=== PATIENT | male | born 1960 | race Caucasian/White ===

== ENCOUNTER 2021-02-01 00:55 | Emergency (ER) | payer OTHER, SELFPAY ==
[2021-02-01 00:56] VITALS: BP 144/90; PULSE 70; RESP 15; TEMP 37; O2SAT 99; BMI 27.5
[2021-02-01 00:59] VITALS: BP 144/90; PULSE 70; RESP 15; TEMP 37; O2SAT 99
--- NOTE | 2021-02-01 01:21 | ED.VIS.GI ---
HPI HPI - GI History of Present Illness Chief Complaint: Abd Pain Informant: patient and spouse/S.O. Abdominal Pain/Flank Pain Onset: Today and Hours Context: Sudden Onset Timing: Intermittent Quality: Cramping Location: Diffuse Current Severity: Gone Maximum Severity: Mild Nausea/Vomiting/Emesis GI Symptom: Positive for Nausea; Negative for Vomiting Diarrhea/Melena/Hematochezia GI Symptom: Positive for Diarrhea; Negative for Melena and Hematochezia Onset: Today Stool Quality: Positive for Watery Severity: Mild Associated Symptoms Associated Symptoms: Negative for Dysuria, Frequency and Hematuria Narrative Narrative: 60-year-old male states he has had GI symptoms for years. Has had work-ups in upper and lower endoscopy without a specific diagnosis. Had a recent Covid test done by the [facility] is awaiting the results. Currently is on Z-Chidi for sinus drainage. To the night around 1230 get abdominal cramping feelings can have diarrhea. 1 the bathroom explosive diarrhea. [address] diaphoretic and nauseated but did not pass out. States he feels much better now and completely pain-free is abdominal pain is completely resolved. Prior similar symptoms: Yes Recent Illness/Hospitalization: No PFSH PFSH Home Medications doxycycline hyclate 100 mg PO BID #20 capsule 11/29/15 [Rx Last Taken Unknown] finasteride 5 mg PO DAILY 02/01/21 [History Last Taken Unknown] fluoxetine 40 mg PO DAILY 02/01/21 [History Last Taken Unknown] Allergy/AdvReac Type Severity Reaction Status Date / Time No Known Allergies Allergy Verified 02/01/21 01:02 Social History Smoking Status: Former smoker ROS ROS ED ROS Narrative Nausea, abdominal pain and diarrhea. Review of Systems ROS Unobtainable: Denies due to encephalopathy Constitutional Constitutional ED: Denies fever(s) ENT ENT ED: Denies ear pain Cardiovascular Cardiovascular: Denies chest pain Respiratory/Chest Respiratory/Chest: Denies dyspnea Gastrointestinal Gastrointestinal: Reports abdominal pain, diarrhea and nausea; Denies constipation, melena or vomiting Genitourinary Genitourinary ED: Denies dysuria Musculoskeletal Musculoskeletal: Denies myalgias Integumentary Denies rash Neurologic Neurologic: Denies headache(s) Psychiatric Psychiatric: Denies depression Endocrine Endocrinology: Denies polyuria Hematologic/Lymphatic Hematologic/Lymphatic: Denies easy bruising Allergic/Immunologic Allergic/Immunologic ED: Denies urticaria EXAM Physical Exam Narrative Exam Narrative: 60-year-old male no acute distress vital signs stable afebrile. H EENT exam unremarkable. Neck nontender. Lungs clear to auscultation bilaterally. Heart regular rhythm no murmur. Abdomen soft nontender. Normal bowel sounds no peritoneal signs. Nondistended. Moving all 4 extremities. Neurovascularly intact. Normal motor strength. No edema. Back nontender. Neurologically is awake and alert. Const Vital Signs: 02/01/21 00:56 02/01/21 00:59 Temperature 98.6 F 98.6 F Temperature Source Oral Oral Pulse Rate 70 70 Respiratory Rate 15 15 Blood Pressure 144/90 H 144/90 H Blood Pressure Mean 108 108 Pulse Ox 99 99 Oxygen Delivery Method Room Air Room Air Positive well nourished and well developed; Negative for obese, cachectic, contractures or unkempt General Appearance ED: well developed and NAD; Negative for unkempt, cachectic, contractures or pallor Nutritional Appearance: Negative for cachectic or obese HEENT Reports moist mucous membranes normocephalic and atraumatic Eyes PERRL and EOMs intact bilaterally Neck no lymphadenopathy, supple and no JVD General: Negative for tenderness Resp normal respiratory effort and clear to auscultation bilaterally Auscultation: Negative for rales, rhonchi or wheezes Cardio regular rate, regular rhythm, S1 normal heart sound, S2 normal heart sound and no murmurs GI non-tender, non-distended and no masses Auscultation: normoactive bowel sounds Palpation: soft; Negative for tender, guarding or rigid Back/Spine no CVA tenderness General Back: Negative for CVA tenderness Cervical Spine: Negative for cervical spine tenderness Thoracic Spine / Upper Back: Negative for thoracic spinal tenderness Extremity full ROM General Extremety ED: Negative for edema or tenderness General Extremity: Negative for edema Neuro moves all extremities Sensorium / Orientation: alert, oriented to person, oriented to place and oriented to time; Negative for orientation impaired, confused, lethargic or stuporous Motor Exam: strength 5/5 throughout Psych Appearance: Negative for unkempt Skin no wounds General Skin Exam: Negative for jaundice or pallor Lesions: no lesions Rashes: no rashes MDM MDM MDM Narrative Medical decision making narrative: 60-year-old male that had abdominal cramping and diarrhea tonight. His abdomen is completely benign at this time. He is completely pain-free. He will be observed and reevaluated. He has had extensive work-ups done in the past through the [facility] without any specific diagnosis. Repeat exam patient is doing well at 2:15 AM. He is symptom-free. His repeat abdominal exam is nontender. When the nurses wanted to discharge him after I reevaluated him he said he had some nausea so was given p.o. Zofran he will be watched and reassessed prior to discharge. Discharge Plan Triage Chief Complaint: Abd Pain ED Provider: Srinath Briones Dx/Rx/DC Orders Clinical Impression: Abdominal pain, Diarrhea Instructions: Abdominal Pain, ED Diarrhea, Unknown Cause Prescriptions: No Action doxycycline hyclate 100 MG capsule 100 mg PO BID Qty: 20 RF: 0 fluoxetine 40 mg capsule 40 mg PO DAILY RF: 0 finasteride 5 mg tablet 5 mg PO DAILY RF: 0 Primary Care Provider: Jules Haynes Referrals: Jules Haynes DO [Primary Care Provider] - 3-5 Days if not improving Shaq Cordero DO [STAFF PHYSICIAN] - 1 Week Activity Restrictions/Additional Instructions: Plenty of fluids and rest. Follow-up with your primary care physician and/or local coordinator hotels Dr. Cordero. Return emergency department if feeling a lot worse. Disposition Disposition: Home, Self Care
[2021-02-01] MEDS: Ondansetron 8 MG Tablet 4 MG PO (02:25)
[2021-02-01] MEDS: Ondansetron 8 MG Tablet PO (03:00)
== END 2021-02-01 03:00 | disposition home or self-care (01) ==
PROVIDERS: Emergency Provider Emergency Medicine; PCP Student in an Organized Health Care Education/Training Program
DX: R10.9 Unspecified abdominal pain (principal); R19.7 Diarrhea, unspecified; Z79.899 Other long term (current) drug therapy; Z87.891 Personal history of nicotine dependence
CPT/HCPCS: 99284

== ENCOUNTER 2021-09-25 19:53 | Inpatient (IN) | payer OTHER, SELFPAY ==
[2021-09-25 19:54] VITALS: BP 129/87; PULSE 84; RESP 15; TEMP 36.7; O2SAT 94; BMI 27.1
--- NOTE | 2021-09-25 20:55 | EDS_ITS ---
HPI History of Present Illness Chief Complaint: Lower Extremity Injury Informant: patient Narrative Narrative: Patient is a 61-year-old male with no significant past medical history presenting with injury, redness and swelling to his left foot. Patient states he was wearing cheap black sneakers yesterday when he stepped on a nail. The nail went through the shoe and into the ball of his foot. Later in the day throughout the night and today he has had increased redness, pain and swelling of the foot. He now has redness streaking up his leg. Came in for further evaluation. Is not entirely sure when his last tetanus was but thinks its been more than 5 years. 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 Denies any history of of diabetes mellitus. no other complaints at this time. PFSH PFSH Allergy/AdvReac Type Severity Reaction Status Date / Time No Known Allergies Allergy Verified 09/25/21 22:32 Family History (Updated 09/25/21 @ 22:[address] Sherron Crockett MD) Father Heart disease Hypertension Mother COPD (chronic obstructive pulmonary disease) Surgical History (Updated 09/25/21 @ 22:[address] Sherron Crockett MD) H/O excision of mass Social History (Updated 09/25/21 @ 22:[address] Sherron Crockett MD) household members: spouse Smoking Status: Former smoker alcohol intake: current details: drinks 5-6 shots of whisky a day substance use type: marijuana ROS ROS ED Constitutional Constitutional ED: Denies chills or fever(s) Eyes Eyes: Denies change in vision ENT ENT ED: Denies rhinorrhea or sore throat Cardiovascular Cardiovascular: Denies chest pain Respiratory/Chest Respiratory/Chest: Denies cough or dyspnea Gastrointestinal Gastrointestinal: Denies abdominal pain, nausea or vomiting Genitourinary Genitourinary ED: Denies dysuria or hematuria Musculoskeletal Musculoskeletal: Reports myalgias and other Details: Left foot pain ; Denies arthralgias Integumentary Reports rash Neurologic Neurologic: Denies headache(s), paresthesias or weakness Psychiatric Psychiatric: Denies anxiety Hematologic/Lymphatic Hematologic/Lymphatic: Denies easy bleeding or easy bruising EXAM Physical Exam Const Vital Signs: 09/25/21 19:54 Temperature 98.1 F Temperature Source Temporal Pulse Rate 84 Respiratory Rate 15 Blood Pressure 129/87 H Blood Pressure Mean 101 Pulse Ox 94 Oxygen Delivery Method Room Air Positive well nourished and well developed General Appearance ED: well developed HEENT Reports moist mucous membranes normocephalic and atraumatic Neck full ROM and supple Chest Wall inspection of chest normal and palpation of chest normal Resp normal respiratory effort and no retractions Cardio regular rate, regular rhythm and no murmurs Cardio Narrative: 2+ DP pulses GI non-tender and non-distended Back/Spine no CVA tenderness Extremity full ROM Extremity Narrative: Edema and erythema of the left foot diffusely. No crepitus appreciated. No pinpoint bony tenderness. General Extremety ED: Yes weight-bearing difficulty General Extremity: weight-bearing difficulty Neuro oriented x3, moves all extremities and no sensory deficits noted Skin Skin Narrative: Puncture wound at the base of the left foot. There is erythema and warmth of the foot with associated lymphangitic streaking approximately 6 cm up the woods. MDM MDM MDM Narrative Medical decision making narrative: Patient sustained a puncture wound through his shoe yesterday with a nail. He is now having increased swelling, redness and a lymphangitic streaking. Due to the rapid progression and the mechanism of injury I am concerned for Pseudomonas or MRSA infection. Started on IV antibiotics. Will obtain an x-ray to look for foreign body. Will discuss admission with the hospitalist. X-ray interpreted by myself as well as radiology shows no acute process. Lab Data Labs: Laboratory Results - last 24 hr 09/25/21 09/25/21 09/25/21 21:00 21:00 21:00 WBC 6.7 RBC 4.18 L Hgb 13.6 Hct 39.5 L MCV 94.5 H MCH 32.5 H MCHC 34.4 RDW Std Deviation 40.6 RDW Coeff of [place] 11.7 Plt Count 153 MPV 10.1 Immature Gran % (Auto) 0.300 Neut % (Auto) 55.1 Lymph % (Auto) 29.7 [place] % (Auto) 10.6 H Eos % (Auto) 3.9 Baso % (Auto) 0.4 Absolute Neuts (auto) 3.7 Absolute Lymphs (auto) 1.99 Nucleated RBC % 0 ESR 8 Sodium 139 Potassium 3.8 Chloride 108 H Carbon Dioxide 25.0 Anion Gap 6 BUN 23 H Creatinine 1.26 Estim Creat Clear Calc 63.91 Est GFR (MDRD) Af Amer 74 Est GFR (MDRD) Non-Af 61 BUN/Creatinine Ratio 18.3 Glucose 112 H Calcium 9.1 Total Creatine Kinase 263 C-React Prot Ext Range 25.60 H Radiography Diagnostic Testing: Clinical Impression(s) from Imaging Studies Foot X-Ray 09/25/21 21:05 IMPRESSION: There are no acute findings of the foot. Electronically Signed: Stephen Jesus MD at 21:19 EDT Reading Location ID and State: [facility] / [place] , Service support , Discharge Plan Triage Chief Complaint: Lower Extremity Injury ED Provider: Carolina Denis Dx/Rx/DC Orders Clinical Impression: Cellulitis and abscess of left leg, Puncture wound of foot, left, complicated Primary Care Provider: Jules Haynes Disposition Disposition: Acute Care Hospital [facility]
--- NOTE | 2021-09-25 21:05 | RAD_ITS ---
STUDY: XR Foot Min 3 Views CLINICAL: Male, 61 years old. puncture wood to foot TECHNIQUE: XR Foot Min 3 ViewsLEFT COMPARISON: None. FINDINGS: There is a plantar calcaneal spur. Normal visualized subtalar, talonavicular, calcaneocuboid, tarsal and tarsometatarsal articulations. Normal metatarsi. There is degenerative arthrosis of the metatarsophalangeal joint of the hallux with a hallux valgus deformity. Normal tibial and fibular sesamoid bones. Normal interphalangeal joint of the great toe. Normal phalanges of the great toe. Normal second through fifth metatarsophalangeal joints. Normal interphalangeal joints and phalanges of the lesser toes. The soft tissue structures are unremarkable. There are no radiodense foreign bodies noted. RAD/Foot min 3 Views IMPRESSION: There are no acute findings of the foot. Electronically Signed: Stephen Jesus MD at 21:19 EDT ,
[2021-09-25 21:12] LABS: Absolute Lymphocyte Count 1.99 X10^3/uL (0.83-4.51); Absolute Neutrophil Count 3.7 X10^3/uL (2.0-7.7); Basophil# 0.03 X10^3/uL; Basophil% 0.4 % (0-1); Eosinophil# 0.26 X10^3/uL; Eosinophils% 3.9 % (0-5); Hematocrit 39.5 % (40-54); Hemoglobin 13.6 g/dL (13.0-16.5); Lymphocyte # 1.99 X10^3/ul (0.83-4.51); Lymphocyte % 29.7 % (19-41); Mean Corp Hgb Conc 34.4 g/dL (32-36); Mean Corpuscular Hgb 32.5 pg (27.0-32.0); Mean Corpuscular Volume 94.5 fL (80-94); Mean Platelet Vol. 10.1 fl (6.2-12.0); Monocyte# 0.71 X10^3/uL; Monocyte% 10.6 % (0-10); NRBC Flagged by Analyzer 0 % (0-5); Neutrophil % 55.1 % (47-70); Platelet Count 153 K/mm3 (150-450); RBC Distribution Width CV 11.7 % (11.6-14.6); RBC Distribution Width SD 40.6 fl (35.1-43.9); Red Blood Count 4.18 M/mm3 (4.6-6.2); White Blood Count 6.7 K/mm3 (4.4-11.0)
[2021-09-25] MEDS: Diphth,Pertuss(Acell),Tet Vac 0.5 ML Vial IM (21:19)
[2021-09-25 21:20] LABS: Erythrocyte Sedimentation Rate 8 mm/hr (0-20)
[2021-09-25 21:21] LABS: Anion Gap 6 (5-15); BUN 23 mg/dL (7-18); BUN/Creat Ratio 18.3 RATIO (10-20); Calcium,Total 9.1 mg/dL (8.5-10.1); Chloride 108 mmol/L (98-107); Creatinine, Serum 1.26 mg/dL (0.70-1.30); EST Glomerular Filtration Rate 61 mL/min (>60); Est Glom Filt Rate - Afr Amer 74 mL/min (>60); Estimated Creatinine Clearance 63.91 ml/min; Glucose 112 mg/dL (74-106); Potassium 3.8 mmol/L (3.5-5.1); Sodium Level 139 mmol/L (136-145)
[2021-09-25 21:31] LABS: CPK Total, Creatine Kinase 263 U/L (39-308)
--- NOTE | 2021-09-25 21:41 | PCM.HP.STD ---
HPI - General General Date of Admission: 09/25/21 Date of Service: 09/25/21 Chief Complaint: Left leg swelling and redness - 1 day HPI Narrative KACEY BENTLEY, is a 61 M who presents with the above. Patient with no significant PMHx who comes in after having stepped on a nail yesterday. He felt associated pain and was okay for the rest of the day. Today he notes his swelling of his left foot as well as erythema on the left foot which appears to be spreading up his legs with streaks. He denies any fever or chills or nausea or vomiting. At the time of being seen, his pain is fairly controlled. Vitals in ED showed blood pressure 129/87, heart rate 84, SPO2 94% on room air, temperature 98.1 F. WBC count is 6.7, hemoglobin 13.6, platelet count 153, sodium 139, potassium 3.8, chloride 108, bicarbonate 25, BUN 23, creatinine 1.26, glucose 112, CRP is 25.6. X-ray of the foot shows no acute findings. He received tetanus shot in the ED. He also received IV vancomycin and Zosyn. PFSH Medical History no medical history no medical history Allergy/AdvReac Type Severity Reaction Status Date / Time No Known Allergies Allergy Verified 09/25/21 19:57 Family History (Updated 09/25/21 @ 22:[address] Sherron Crockett MD) Father Heart disease Hypertension Mother COPD (chronic obstructive pulmonary disease) Surgical History (Updated 09/25/21 @ 22:[address] Sherron Crockett MD) H/O excision of mass Social History (Updated 09/25/21 @ 22:[address] Sherron Crockett MD) household members: spouse Smoking Status: Former smoker alcohol intake: current details: drinks 5-6 shots of whisky a day substance use type: marijuana ROS ROS Narrative Constitutional: Denies: Anorexia, Chills, Fever, Night Sweats, Weight Change Eyes: Denies: Blurred vision, Cataracts, Conjunctivae Inflammation, Pain, Redness, Vision Change HEENT: Denies: Difficulty Hearing, Difficulty Swallowing, Head Aches, Hearing Changes, Sinus Congestion, Sinus Drainage Cardiovascular: Denies: Chest Pain, Orthopnea, Palpitations Respiratory: Denies: Cough, Shortness of breath at rest, Sputum production Gastrointestinal: Denies: Abdominal Pain, Nausea, Vomiting Genitourinary: Denies: Dysuria Musculoskeletal: See HPI Skin: Denies: Rash, Wounds Neurological: Denies: Numbness, Tingling, Focal weakness Vital Signs Vital Signs Vital Signs: 09/25/21 19:54 Temperature 98.1 F Temperature Source Temporal Pulse Rate 84 Respiratory Rate 15 Blood Pressure 129/87 H Blood Pressure Mean 101 Pulse Ox 94 Oxygen Delivery Method Room Air Weight Weight: 88.451 kg Body Mass Index (BMI) 27.1 Physical Exam Narrative Physical exam: General: Alert, Oriented x3, Cooperative, No apparent distress HEENT: Atraumatic Oral: Moist Mucosa Neck: Supple Lungs: Clear to auscultation Cardiovascular: HS I+II, regular, no murmurs Abdomen: Bowel Sounds Present, Soft, Non Tender Extremities: Left foot is swollen, erythema with differential warmth over the dorsal medial aspect of the foot, streaking up to the lower one third of the leg, plantar ulcer/wound at the base of the first toe, no discharge or erythema, tender to touch Skin: See and extremities Neurological: Grossly intact Psych/Mental Status: Appropriate Results Lab / Micro Data Result Diagrams: 09/25/21 21:00 09/25/21 21:00 Labs: Laboratory Results - last 24 hr 09/25/21 21:00: WBC 6.7, RBC 4.18 L, Hgb 13.6, Hct 39.5 L, MCV 94.5 H, MCH 32.5 H, MCHC 34.4, RDW Std Deviation 40.6, RDW Coeff of [place] 11.7, Plt Count 153, MPV 10.1, Immature Gran % (Auto) 0.300, Neut % (Auto) 55.1, Lymph % (Auto) 29.7, [place] % (Auto) 10.6 H, Eos % (Auto) 3.9, Baso % (Auto) 0.4, Absolute Neuts (auto) 3.7, Absolute Lymphs (auto) 1.99, Nucleated RBC % 0, ESR 8 09/25/21 21:00: Sodium 139, Potassium 3.8, Chloride 108 H, Carbon Dioxide 25.0, Anion Gap 6, BUN 23 H, Creatinine 1.26, Estim Creat Clear Calc 63.91, Est GFR (MDRD) Af Amer 74, Est GFR (MDRD) Non-Af 61, BUN/Creatinine Ratio 18.3, Glucose 112 H, Calcium 9.1, C-React Prot Ext Range 25.60 H 09/25/21 21:00: Total Creatine Kinase 263 Radiology Impression Foot X-Ray 09/25/21 21:05 IMPRESSION: There are no acute findings of the foot. Electronically Signed: Stephen Jesus MD at 21:19 EDT , Assessment & Plan Assessment/Plan (1) Cellulitis and abscess of left leg: PLAN: Plan 1. Acute left leg cellulitis secondary to trauma/stepped on the nail Patient received tetanus booster Started on IV vancomycin and Zosyn Will continue on IV cefazolin, elevate leg 2. Chronic alcohol abuse, patient drinks 5-6 shots of whiskey daily, monitor for alcohol withdrawal 3. DVT prophylaxis?Lovenox subcu Charges/Coding Visit Charges Inpatient E&M: 60790 Init Hosp L2
[2021-09-25 22:28] VITALS: BMI 27.5
[2021-09-25 22:30] VITALS: BP 136/76; PULSE 72; RESP 18; TEMP 36.5; O2SAT 92
[2021-09-25] MEDS: Cefazolin 1 GM/50 ML BAG IV (23:29)
[2021-09-25] MEDS: 0.9% Normal Saline 1,000 ML 75 ML IV (23:29)
[2021-09-26 04:45] VITALS: BP 142/68; PULSE 61; RESP 18; TEMP 36.7; O2SAT 96
[2021-09-26] MEDS: Cefazolin 1 GM/50 ML BAG IV ×3 (05:03→21:01)
[2021-09-26 06:15] LABS: Absolute Lymphocyte Count 1.78 X10^3/uL (0.83-4.51); Absolute Neutrophil Count 3.5 X10^3/uL (2.0-7.7); Basophil# 0.03 X10^3/uL; Basophil% 0.5 % (0-1); Eosinophils% 4.7 % (0-5); Hematocrit 38.9 % (40-54); Hemoglobin 13.1 g/dL (13.0-16.5); Lymphocyte # 1.78 X10^3/ul (0.83-4.51); Lymphocyte % 28.1 % (19-41); Mean Corp Hgb Conc 33.7 g/dL (32-36); Mean Corpuscular Hgb 32.1 pg (27.0-32.0); Mean Corpuscular Volume 95.3 fL (80-94); Mean Platelet Vol. 10.5 fl (6.2-12.0); Monocyte# 0.75 X10^3/uL; Monocyte% 11.8 % (0-10); NRBC Flagged by Analyzer 0 % (0-5); Neutrophil # 3.47 X10^3/uL (2.7-7.7); Neutrophil % 54.7 % (47-70); Platelet Count 146 K/mm3 (150-450); RBC Distribution Width CV 11.8 % (11.6-14.6); RBC Distribution Width SD 40.7 fl (35.1-43.9); Red Blood Count 4.08 M/mm3 (4.6-6.2); White Blood Count 6.3 K/mm3 (4.4-11.0)
[2021-09-26 06:51] LABS: ALB/GLOB Ratio 1.2 RATIO (0.9-2.4); AST(SGOT) 21 U/L (15-37); Alanine Aminotransfer ALT/SGPT 12 U/L (16-61); Albumin, Serum 3.4 g/dL (3.2-5.0); Alkaline Phosphatase 48 U/L (45-117); Anion Gap 4 (5-15); BUN 19 mg/dL (7-18); BUN/Creat Ratio 18.6 RATIO (10-20); Calcium,Total 8.5 mg/dL (8.5-10.1); Chloride 108 mmol/L (98-107); Creatinine, Serum 1.02 mg/dL (0.70-1.30); EST Glomerular Filtration Rate 78 mL/min (>60); Est Glom Filt Rate - Afr Amer 95 mL/min (>60); Estimated Creatinine Clearance 78.95 ml/min; Globulin 2.9 g/dL (2.2-4.2); Glucose 108 mg/dL (74-106); Protein, Total 6.3 g/dL (6.4-8.2); Sodium Level 139 mmol/L (136-145)
--- NOTE | 2021-09-26 07:30 | PCM.PN.HOSP ---
Subjective Subjective Patient is a 61-year-old gentleman who presented with erythema and pain involving the left lower extremity. He had apparently stepped on a nail a day prior to his admission. An assessment of cellulitis involving the left lower extremity made admitted to regular nursing floor for further management Objective Data Objective Data Vital Signs: Vital Signs Temp Pulse Resp BP Pulse Ox O2 Del Method 98.0 F 61 18 142/68 H 96 Room Air 09/26/21 04:45 09/26/21 04:45 09/26/21 04:45 09/26/21 04:45 09/26/21 04:45 09/26/21 04:45 Oxygen Delivery Method Room Air Weight: 89.6 kg Body Mass Index (BMI) 27.5 Intake & Output: Intake and Output for Last 24 Hours 09/24/21 09/25/21 09/26/21 23:59 23:59 23:59 Intake Total 276.25 / 276.25 475 / 475 Balance 276.25 / 276.25 475 / 475 Lab / Micro Data Result Diagrams: 09/26/21 05:10 09/26/21 05:10 Labs: Laboratory Results - last 24 hr 09/25/21 21:00: WBC 6.7, RBC 4.18 L, Hgb 13.6, Hct 39.5 L, MCV 94.5 H, MCH 32.5 H, MCHC 34.4, RDW Std Deviation 40.6, RDW Coeff of [place] 11.7, Plt Count 153, MPV 10.1, Immature Gran % (Auto) 0.300, Neut % (Auto) 55.1, Lymph % (Auto) 29.7, [place] % (Auto) 10.6 H, Eos % (Auto) 3.9, Baso % (Auto) 0.4, Absolute Neuts (auto) 3.7, Absolute Lymphs (auto) 1.99, Nucleated RBC % 0, ESR 8 09/25/21 21:00: Sodium 139, Potassium 3.8, Chloride 108 H, Carbon Dioxide 25.0, Anion Gap 6, BUN 23 H, Creatinine 1.26, Estim Creat Clear Calc 63.91, Est GFR (MDRD) Af Amer 74, Est GFR (MDRD) Non-Af 61, BUN/Creatinine Ratio 18.3, Glucose 112 H, Calcium 9.1, C-React Prot Ext Range 25.60 H 09/25/21 21:00: Total Creatine Kinase 263 09/26/21 05:10: WBC 6.3, RBC 4.08 L, Hgb 13.1, Hct 38.9 L, MCV 95.3 H, MCH 32.1 H, MCHC 33.7, RDW Std Deviation 40.7, RDW Coeff of [place] 11.8, Plt Count 146 L, MPV 10.5, Immature Gran % (Auto) 0.200, Neut % (Auto) 54.7, Lymph % (Auto) 28.1, [place] % (Auto) 11.8 H, Eos % (Auto) 4.7, Baso % (Auto) 0.5, Absolute Neuts (auto) 3.5, Absolute Lymphs (auto) 1.78, Nucleated RBC % 0 09/26/21 05:10: Sodium 139, Potassium 4.0, Chloride 108 H, Carbon Dioxide 27.0, Anion Gap 4 L, BUN 19 H, Creatinine 1.02, Estim Creat Clear Calc 78.95, Est GFR (MDRD) Af Amer 95, Est GFR (MDRD) Non-Af 78, BUN/Creatinine Ratio 18.6, Glucose 108 H, Calcium 8.5, Total Bilirubin 0.50, AST 21, ALT 12 L, Alkaline Phosphatase 48, Total Protein 6.3 L, Albumin 3.4, Globulin 2.9, Albumin/Globulin Ratio 1.2 Radiography Diagnostic Testing: Radiology Impression Foot X-Ray 09/25/21 21:05 IMPRESSION: There are no acute findings of the foot. Electronically Signed: Stephen Jesus MD at 21:19 EDT Reading Location ID and State: [facility] / [place] , Service support , Physical Exam Narrative GENERAL: cooperative HEENT: Atraumatic; EYES; Anicteric, Normal Conjunctiva NECK; supple, normal thyroid, RESPIRATORY: Diminished to auscultation CARDIOVASCULAR: Regular S1 S2, GI: soft, normoactive bowel sounds, : No Renal angle tenderness; EXTREMITIES: No edema, no clubbing, MUSCULOSKELETAL: no muscle wasting NEURO: Awake; no lateralizing signs. SKIN: Erythema involving the left foot with a puncture wound on the plantar surface of the big toe PSYCH; Flat affect Assessment & Plan Assessment/Plan (1) Cellulitis and abscess of left leg: PLAN: Plan Patient is a 61-year-old gentleman who presented with erythema and pain involving the left lower extremity. He had apparently stepped on a nail a day prior to his admission. An assessment of cellulitis involving the left lower extremity made admitted to regular nursing floor for further management 1. Acute left lower extremity cellulitis ? Following traumatic nail injury. Patient did receive tetanus booster in the ED started on vancomycin and Zosyn admitted to regular nursing floor for further management 2. Chronic alcohol use ? Patient being monitored for possible alcohol withdrawal 3. DVT prophylaxis ? Lovenox Charges/Coding Visit Charges Inpatient E&M: 71888 Subs Hosp L2
[2021-09-26 09:26] VITALS: BP 140/74; PULSE 59; RESP 18; TEMP 36.5; O2SAT 97
[2021-09-26] MEDS: Enoxaparin 40 MG/0.4 ML Syringe SC (10:40)
[2021-09-26 16:15] VITALS: BP 140/80; PULSE 65; RESP 18; TEMP 36.5; O2SAT 98
--- NOTE | 2021-09-26 16:34 | NURSING ---
Pt was thought to be in the shower. 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 Pt located returning to floor on elevator. Pt educated on that he is not allowed to leave the floor. Pt is understanding. Offered pt nicotine patch and declined. Pt vital signs are stable and no changes to physical assessment. Dr. Angel and Raul Dobson, wire charger both notified by this RN.
[2021-09-26 21:02] VITALS: BP 140/76; PULSE 67; RESP 16; TEMP 36.7; O2SAT 97
[2021-09-26] MEDS: 0.9% Saline Lock 10 ML Syringe IV (21:09)
[2021-09-27 03:00] VITALS: BP 140/76; PULSE 63; RESP 18; TEMP 36.9; O2SAT 100
[2021-09-27 04:24] LABS: Absolute Lymphocyte Count 1.82 X10^3/uL (0.83-4.51); Absolute Neutrophil Count 3.2 X10^3/uL (2.0-7.7); Basophil# 0.02 X10^3/uL; Basophil% 0.3 % (0-1); Eosinophil# 0.32 X10^3/uL; Eosinophils% 5.3 % (0-5); Hematocrit 39.8 % (40-54); Hemoglobin 13.6 g/dL (13.0-16.5); Lymphocyte # 1.82 X10^3/ul (0.83-4.51); Lymphocyte % 30.2 % (19-41); Mean Corp Hgb Conc 34.2 g/dL (32-36); Mean Corpuscular Hgb 32.5 pg (27.0-32.0); Monocyte# 0.65 X10^3/uL; Monocyte% 10.8 % (0-10); NRBC Flagged by Analyzer 0 % (0-5); Neutrophil # 3.21 X10^3/uL (2.7-7.7); Neutrophil % 53.2 % (47-70); Platelet Count 138 K/mm3 (150-450); RBC Distribution Width CV 11.8 % (11.6-14.6); RBC Distribution Width SD 40.8 fl (35.1-43.9); Red Blood Count 4.19 M/mm3 (4.6-6.2)
[2021-09-27] MEDS: Cefazolin 1 GM/50 ML BAG IV (05:07)
[2021-09-27] MEDS: 0.9% Saline Lock 10 ML Syringe IV (05:08)
[2021-09-27 05:10] LABS: Anion Gap 4 (5-15); BUN 18 mg/dL (7-18); BUN/Creat Ratio 19.3 RATIO (10-20); Calcium,Total 8.5 mg/dL (8.5-10.1); Chloride 105 mmol/L (98-107); Creatinine, Serum 0.93 mg/dL (0.70-1.30); EST Glomerular Filtration Rate 87 mL/min (>60); Est Glom Filt Rate - Afr Amer 105 mL/min (>60); Estimated Creatinine Clearance 86.59 ml/min; Glucose 106 mg/dL (74-106); Sodium Level 138 mmol/L (136-145)
--- NOTE | 2021-09-27 07:38 | DS.PCM_ITS ---
Providers Date of Admission: 09/25/21 Date of Discharge: 09/27/21 Primary Care Physician: Dr. Jules Haynes DO Reason For Visit: LEFT LEG CELLULITUS Diagnosis Discharge Diagnosis (1) Cellulitis and abscess of left leg: Status: Acute Code(s): L03.116 - Cellulitis of left lower limb; L02.416 - Cutaneous abscess of left lower limb Medications at Discharge Home Medications cefdinir 300 mg capsule 300 mg PO Q12H #10 caps 09/27/21 Hospital Course Summary of Care Provided Minutes Spent on Discharge: 35 Hospital Course: Patient is a 61-year-old gentleman who presented with erythema and pain involving the left lower extremity. He had apparently stepped on a nail a day prior to his admission. An assessment of cellulitis involving the left lower extremity made admitted to regular nursing floor for further management 1. Acute left lower extremity cellulitis ? Following traumatic nail injury. Patient did receive tetanus booster in the ED started on vancomycin and Zosyn admitted to regular nursing floor for further management ? 09/27/2021 patient responded to treatment discharged home on cefdinir 300 mg p.o. twice daily for 5 days 2. Chronic alcohol use ? Patient being monitored for possible alcohol withdrawal 3. DVT prophylaxis ? Lovenox Physical Exam Narrative GENERAL: cooperative HEENT: Atraumatic; EYES; Anicteric, Normal Conjunctiva NECK; supple, normal thyroid, RESPIRATORY: Diminished to auscultation CARDIOVASCULAR: Regular S1 S2, GI: soft, normoactive bowel sounds, : No Renal angle tenderness; EXTREMITIES: No edema, no clubbing, MUSCULOSKELETAL: no muscle wasting NEURO: Awake; no lateralizing signs. SKIN: Erythema involving the left foot resolved PSYCH; Flat affect Weight / BMI Weight Weight: 89.6 kg Body Mass Index (BMI) 27.5 ABG / Lab / Microbiology Data Result Diagrams: 09/27/21 04:15 09/27/21 04:15 Laboratory: Laboratory Results - last 24 hr 09/27/21 04:15: WBC 6.0, RBC 4.19 L, Hgb 13.6, Hct 39.8 L, MCV 95.0 H, MCH 32.5 H, MCHC 34.2, RDW Std Deviation 40.8, RDW Coeff of [place] 11.8, Plt Count 138 L, MPV 10.0, Immature Gran % (Auto) 0.200, Neut % (Auto) 53.2, Lymph % (Auto) 30.2, [place] % (Auto) 10.8 H, Eos % (Auto) 5.3 H, Baso % (Auto) 0.3, Absolute Neuts (auto) 3.2, Absolute Lymphs (auto) 1.82, Nucleated RBC % 0 09/27/21 04:15: Sodium 138, Potassium 4.0, Chloride 105, Carbon Dioxide 29.0, Anion Gap 4 L, BUN 18, Creatinine 0.93, Estim Creat Clear Calc 86.59, Est GFR (MDRD) Af Amer 105, Est GFR (MDRD) Non-Af 87, BUN/Creatinine Ratio 19.3, Glucose 106, Calcium 8.5 D/C Instructions Discharge Diet: No restrictions Discharge Activity: Return to Normal Activity Call your doctor if you observe: Fever of 101 or Higher, Shortness of breath, Fainting spells and Chest pain Meaningful Use Info Meaningful Use Diagnoses (Choose all that apply): None applicable Discharge Plan Admission Admit Date/Time: 09/25/21 21:37 Attending Provider: Yuval Angel Primary Care Provider: Jules Haynes Consulting Providers: Sherron Crockett Discharge Orders/Prescriptions Prescriptions: New cefdinir 300 mg capsule 300 mg PO Q12H Qty: 10 0RF Referrals / Follow Up: Jules Haynes DO [Primary Care Provider] - In 1 Week Disposition Disposition (needs filled in before D/C Order can be placed): Home, Self Care Charges/Coding Visit Charges Inpatient E&M: 01774 Disch Hosp
[2021-09-27 09:00] VITALS: BP 125/88; PULSE 61; RESP 18; TEMP 36.4; O2SAT 98
[2021-09-27] MEDS: Enoxaparin 40 MG/0.4 ML Syringe SC (10:08)
--- NOTE | 2021-09-27 11:10 | CASEMGMT ---
RN CASSIE Face to Face with patient for initial transition planning/care coordination assessment. RN CM introduced self and role at [facility]. Patient lying in bed, alert and oriented. Patient willing to participate in assessment and is able to answer all questions appropriately. Care providers, pharmacy, and demographics verified. Patient wishes to discharge home, denies need for home health at this time. Patient states he has no further needs or concerns at this time. CM to follow for discharge planning needs that may arise. PCP: [place] Specialists: none Preferred Pharmacy: [facility] Insurance: [employer], Prescription Benefit: yes Living Will/HPOA: none LNOK: Living Arrangements: Patient lives with in a 2 story home. Patient is independent and able to ambulate stairs. Transportation: self, DME/HHC: Patient states he has cpap at home but does not wear. Patient denies previous HHC Disposition Plan: Patient to discharge home with family support and follow-up plans in place. Fior SIEGEL, RN, CM
== END 2021-09-27 12:48 | disposition home or self-care (01) | DRG 603 ==
LOC: ED 20:25 → PCU 21:54
PROVIDERS: Admitting Provider Internal Medicine; Emergency Provider Emergency Medicine; PCP Student in an Organized Health Care Education/Training Program; Visit Provider Internal Medicine
DX: L03.116 Cellulitis of left lower limb (principal); S91.332A Puncture wound without foreign body, left foot, initial encounter; F10.10 Alcohol abuse, uncomplicated; L02.416 Cutaneous abscess of left lower limb; W45.0XXA Nail entering through skin, initial encounter; Z23 Encounter for immunization; Z87.891 Personal history of nicotine dependence
CPT/HCPCS: 36415; 73630; 80048; 80053; 82550; 85025; 85652; 86140; 90715; 99282; J7030; J7050; A4216

== ENCOUNTER 2022-09-05 12:35 | Emergency (ER) | payer OTHER, SELFPAY ==
[2022-09-05 12:37] VITALS: BP 178/94; PULSE 60; RESP 18; TEMP 36.6; O2SAT 100; BMI 26.2
--- NOTE | 2022-09-05 12:42 | CT_ITS ---
INDICATION: abd pain EXAMINATION: CT ABDOMEN AND PELVIS WITHOUT CONTRAST - CT Abdomen And Pelvis W/O Contrast Injection TECHNIQUE: Helically acquired images were obtained of the abdomen and pelvis without oral or IV contrast. A radiation dose optimization technique was used for this scan. IV Contrast dosage and agent: None. Oral contrast: None. RADIATION DOSAGE (If Supplied By Facility): CTDIvol = ( 8.04 ) mGy, DLP = ( 415.96 ) mGycm COMPARISON: Axial CT imaging of the abdomen and pelvis pre- and post-IV contrast 01/15/2010 FINDINGS: LOWER CHEST: Lung bases are clear. No cardiomegaly or pericardial effusion. LIVER: Homogeneous. No focal mass. Portal vein diameter 1.5 cm GALLBLADDER AND BILIARY TREE: No calcified gallstones. No gallbladder distension or wall edema. No intra- or extrahepatic biliary ductal dilation. PANCREAS: No focal cystic or solid mass. Incidental note of a 2 mm calcification along the anterior mid body of the pancreas SPLEEN: Normal size without focal cystic or solid mass. 1 cm accessory spleen is noted anterior to the mid pole. ADRENAL GLANDS: No nodules. KIDNEYS AND URETERS: Normal renal size and position. No renal calculi are demonstrated. No hydronephrosis. RETROPERITONEUM: Moderate atherosclerotic calcific plaquing of the abdominal aorta from the renal arteries through the iliac bifurcations. There is 2.66 x 2.68 cm fusiform ectasia of the infrarenal aorta. No demonstrated adenopathy. BOWEL: No evidence of acute appendicitis. No stomach or bowel distension. No focal inflammatory change. No ascites. LYMPH NODES: No enlarged mesenteric or retroperitoneal lymph nodes. URINARY BLADDER: Unremarkable. The prostate gland is unremarkable. ABDOMINAL WALL: No discrete abdominal or pelvic wall hernia. BONES: There are multilevel degenerative changes of the thoracolumbar spine and a slight upper lumbar levoscoliosis. Prominent but wide-base Schmorl''s nodes are seen involving the superior and inferior L1 vertebral endplates. Degenerative arthrosis also noted at the pubic symphysis, and there are mild degenerative changes of both left sacroiliac joint and the right hip. Benign-appearing cortical irregularity at the posterior margin of the lateral left iliac wing is unchanged. No lytic or blastic abnormality. CT/Abdomen/Pelvis without Cont IMPRESSION: 1. No abnormality seen to account for the patient''s complaint of abdominal pain. 2. Moderate aortoiliac atherosclerotic calcific plaquing with 2.67 cm fusiform ectasia of the infrarenal aorta. 3. Stable, benign-appearing cortical irregularity at the posterolateral margin of left iliac wing, possibly the sequelae of old healed injury. 4. Multilevel degenerative changes of the thoracolumbar spine as well as mild degenerative changes the left sacroiliac joint and right hip. Electronically Signed: Yifan Hwang MD at 14:01 EDT Reading Location ID and State: [id number] / Unknown , Service support ,
--- NOTE | 2022-09-05 12:58 | EDS_ITS ---
HPI History of Present Illness Chief Complaint: Abd Pain Informant: patient Onset/Context/Timing Onset: Today Context: Sudden Onset Timing: Intermittent Current Severity: Moderate Maximum Severity: Severe Narrative Narrative: Patient presents with rather abrupt onset of suprapubic abdominal pain. He states he got abrupt onset of pain accompanied with hot flashes. It seems to be intermittent. Pain does not radiate into his legs. He denies dysuria, but states he does urinate frequently secondary to an enlarged prostate. He denies history of kidney stone. He has not had fever or chills. [facility] Medical History (Updated 09/05/22 @ 15:[address] Zulay Sanz MD) BPH (benign prostatic hyperplasia) CPAP (continuous positive airway pressure) dependence Factor 5 Leiden mutation, heterozygous GERD (gastroesophageal reflux disease) Sleep apnea Home Medications cefdinir 300 mg capsule 300 mg PO Q12H #10 caps 09/27/21 [Rx Last Taken Unknown] Allergy/AdvReac Type Severity Reaction Status Date / Time No Known Allergies Allergy Verified 09/05/22 12:38 Family History Father Heart disease Hypertension Mother COPD (chronic obstructive pulmonary disease) Surgical History H/O excision of mass Social History household members: spouse Smoking Status: Former smoker alcohol intake: current details: drinks 5-6 shots of whisky a day substance use type: marijuana ROS ROS ED Constitutional Constitutional ED: Denies chills or fever(s) Eyes Eyes: Denies change in vision or discharge from eye(s) ENT ENT ED: Denies discharge from eye(s), rhinorrhea or sore throat Cardiovascular Cardiovascular: Denies chest pain or palpitations Respiratory/Chest Respiratory/Chest: Denies cough or dyspnea Gastrointestinal Gastrointestinal: Reports abdominal pain; Denies diarrhea, nausea or vomiting Genitourinary Genitourinary ED: Denies difficulty urinating or dysuria Musculoskeletal Musculoskeletal: Denies back pain or extremity pain Integumentary Denies Abrasions or rash Neurologic Neurologic: Denies headache(s) or weakness Psychiatric Psychiatric: Denies anxiety or depression Allergic/Immunologic Allergic/Immunologic ED: Denies lip swelling or urticaria EXAM Physical Exam Const Vital Signs: 09/05/22 12:37 09/05/22 13:49 Temperature 97.8 F Temperature Source Temporal Pulse Rate 60 53 L Respiratory Rate 18 12 Blood Pressure 178/94 H 169/86 H Blood Pressure Mean 122 113 Pulse Ox 100 100 Oxygen Delivery Method Room Air Room Air Positive well nourished and well developed General Appearance ED: well developed HEENT Reports moist mucous membranes Eyes PERRL and EOMs intact bilaterally Neck no lymphadenopathy Chest Wall inspection of chest normal and palpation of chest normal Resp normal respiratory effort and clear to auscultation bilaterally Cardio regular rate and regular rhythm GI GI Narrative: Abdomen soft with mild tenderness in the suprapubic region. I do not palpate a significantly distended bladder. Extremity normal to inspection Neuro oriented x3 and no sensory deficits noted Motor Exam: strength 5/5 throughout Psych Mood & Affect: anxious Skin no rashes or lesions noted MDM MDM MDM Narrative Medical decision making narrative: Patient was ordered morphine and Toradol for pain which she declined. He did accept Zofran and IV fluids. Labwork obtained to evaluate for leukocytosis, anemia, and electrolyte derangement. Urinalysis obtained to evaluate for infection/hematuria. CT scan of flank obtained to evaluate for possible kidney stone. Lab Data Attestation: I reviewed the patient's lab results. Labs: Laboratory Results - last 24 hr 09/05/22 09/05/22 13:05 13:45 WBC 6.5 RBC 4.72 Hgb 15.0 Hct 44.6 MCV 94.5 H MCH 31.8 MCHC 33.6 RDW Std Deviation 40.8 RDW Coeff of [place] 11.8 Plt Count 157 MPV 10.1 Immature Gran % (Auto) 0.200 Neut % (Auto) 58.8 Lymph % (Auto) 29.6 [place] % (Auto) 9.4 Eos % (Auto) 1.4 Baso % (Auto) 0.6 Absolute Neuts (auto) 3.8 Absolute Lymphs (auto) 1.92 Nucleated RBC % 0 Sodium 140 Potassium 3.3 L Chloride 108 H Carbon Dioxide 28.0 Anion Gap 4 L BUN 18 Creatinine 1.08 Estim Creat Clear Calc 73.60 Est GFR (MDRD) Af Amer 88 Est GFR (MDRD) Non-Af 73 BUN/Creatinine Ratio 16.7 Glucose 92 Calcium 9.1 Urine Color Yellow Urine Clarity Clear Urine pH 7.0 Ur Specific [place] 1.010 Urine Protein 15 H Urine Glucose (UA) Normal Urine Ketones Negative Urine Occult Blood 10 H Urine Nitrite Negative Urine Bilirubin Negative Urine Urobilinogen Normal Ur Leukocyte Esterase 25 H Urine RBC 0-5 SEEN Urine WBC 0-5 SEEN Ur Squamous Epith Cells 0-5 SEEN Urine Bacteria 0 SEEN Urine Mucus 0 SEEN Radiography Diagnostic Testing: Clinical Impression(s) from Imaging Studies Abdomen/Pelvis CT 09/05/22 12:42 IMPRESSION: 1. No abnormality seen to account for the patient''s complaint of abdominal pain. 2. Moderate aortoiliac atherosclerotic calcific plaquing with 2.67 cm fusiform ectasia of the infrarenal aorta. 3. Stable, benign-appearing cortical irregularity at the posterolateral margin of left iliac wing, possibly the sequelae of old healed injury. 4. Multilevel degenerative changes of the thoracolumbar spine as well as mild degenerative changes the left sacroiliac joint and right hip. Electronically Signed: Yifan Hwang MD at 14:01 EDT Reading Location ID and State: [id number] / Unknown , Service support , Treatment and Re-Evaluation :: CBC was normal white count at 6.5 with a hemoglobin of 15.0. Chemistry studies reveal slightly low potassium at 3.3. This is replaced orally. Renal function is normal with a BUN of 18 and a creatinine of 1.08. Glucose is 92. Urinalysis reveals no sign of infection with no bacteria and 0-5 white cells. No nitrites are noted. 0-[address] scan of the flank reveals some chronic changes but no acute changes to explain patient's complaint of abdominal pain. On repeat evaluation patient states his symptoms have subsided. He states he gets similar pain about every 8 months or so. He states last time this happened he tested positive for COVID. states that their daughter also had similar symptoms and tested positive for a parainfluenza virus. Although he does not otherwise feel ill, a viral respiratory panel and COVID test will be sent. If these results are positive he will be called. They do understand that supportive care is all that is required for these. Return instructions are given. Discharge Plan Triage Chief Complaint: Abd Pain ED Provider: Zulay Sanz Dx/Rx/DC Orders Clinical Impression: Abdominal pain Instructions: ED Abdominal Pain Unkn Cause Male... Prescriptions: No Action cefdinir 300 mg capsule 300 mg PO Q12H Qty: 10 0RF Primary Care Provider: Jules Haynes Referrals: Jules Haynes DO [Primary Care Provider] - 1-2 Weeks Disposition Disposition: Home, Self Care
[2022-09-05] MEDS: 0.9% Normal Saline 1,000 ML 150 ML IV (13:08)
[2022-09-05] MEDS: Ondansetron 4 MG/2 ML Vial IV (13:08)
[2022-09-05 13:19] LABS: Absolute Lymphocyte Count 1.92 X10^3/uL (0.83-4.51); Absolute Neutrophil Count 3.8 X10^3/uL (2.0-7.7); Basophil# 0.04 X10^3/uL; Basophil% 0.6 % (0-1); Eosinophil# 0.09 X10^3/uL; Eosinophils% 1.4 % (0-5); Hematocrit 44.6 % (40-54); Lymphocyte # 1.92 X10^3/ul (0.83-4.51); Lymphocyte % 29.6 % (19-41); Mean Corp Hgb Conc 33.6 g/dL (32-36); Mean Corpuscular Hgb 31.8 pg (27.0-32.0); Mean Corpuscular Volume 94.5 fL (80-94); Mean Platelet Vol. 10.1 fl (6.2-12.0); Monocyte# 0.61 X10^3/uL; Monocyte% 9.4 % (0-10); NRBC Flagged by Analyzer 0 % (0-5); Neutrophil # 3.81 X10^3/uL (2.7-7.7); Neutrophil % 58.8 % (47-70); Platelet Count 157 K/mm3 (150-450); RBC Distribution Width CV 11.8 % (11.6-14.6); RBC Distribution Width SD 40.8 fl (35.1-43.9); Red Blood Count 4.72 M/mm3 (4.6-6.2); White Blood Count 6.5 K/mm3 (4.4-11.0)
[2022-09-05 13:30] LABS: Anion Gap 4 (5-15); BUN 18 mg/dL (7-18); BUN/Creat Ratio 16.7 RATIO (10-20); Calcium,Total 9.1 mg/dL (8.5-10.1); Chloride 108 mmol/L (98-107); Creatinine, Serum 1.08 mg/dL (0.70-1.30); EST Glomerular Filtration Rate 73 mL/min (>60); Est Glom Filt Rate - Afr Amer 88 mL/min (>60); Glucose 92 mg/dL (74-106); Potassium 3.3 mmol/L (3.5-5.1); Sodium Level 140 mmol/L (136-145)
[2022-09-05 13:49] VITALS: BP 169/86; PULSE 53; RESP 12; O2SAT 100
[2022-09-05 13:58] LABS: Bacteria 0 SEEN /hpf (None Seen); Mucous, Urine 0 SEEN /hpf (<or=2+)
[2022-09-05 14:16] LABS: Color, Urine Yellow (Yellow); Glucose, Dipstick Normal (Normal); Ketone-Dipstick Negative (Negative); Leukocyte Esterase-Dipstick 25 /ul (Negative); Nitrite-Dipstick Negative (Negative); Occult Blood-Urine 10 /ul (Negative); Protein-Dipstick 15 mg/dl (Negative); Urine Bilirubin Dipstick Negative (Negative); Urine Clarity Clear (Clear); Urine Urobilinogen Normal (Normal)
[2022-09-05 14:24] LABS: Red Blood Cells-Urine 0-5 SEEN /hpf (0-5); Squamous Epithelial Cells - UA 0-5 SEEN /hpf (0-5); White Blood Cells 0-5 SEEN /hpf (0-5)
[2022-09-05] MEDS: Potassium Chloride Oral Tablet 20 MEQ 40 MEQ PO (14:27)
== END 2022-09-05 15:14 | disposition home or self-care (01) ==
PROVIDERS: Emergency Provider Emergency Medicine; PCP Student in an Organized Health Care Education/Training Program; Visit Provider Emergency Medicine
DX: R10.9 Unspecified abdominal pain (principal); E87.6 Hypokalemia; Z20.822 Contact with and (suspected) exposure to COVID-19; N40.0 Benign prostatic hyperplasia without lower urinary tract symptoms; Z87.891 Personal history of nicotine dependence
CPT/HCPCS: 74176; 80048; 81001; 85025; 87633; 87811; 96361; 96374; 99285; J7030; J2405

== ENCOUNTER 2022-09-17 01:24 | Emergency (ER) | payer OTHER, SELFPAY ==
[2022-09-17 01:28] VITALS: BP 96/56; PULSE 70; RESP 18; TEMP 36.6; O2SAT 98; BMI 26.7
--- NOTE | 2022-09-17 01:55 | CT_ITS ---
INDICATION: trauma, altered LOC EXAMINATION: CT BRAIN - CT Head or Brain W/O Contrast Injection TECHNIQUE: Serial CT axial images were obtained of the head without intravenous contrast. A radiation dose optimization technique was used for this scan. COMPARISON: None. Findings: Serial CT axial images of the head without contrast. BRAIN PARENCHYMA: Diffuse periventricular hypoattenuation likely chronic white matter ischemic changes. Mild diffuse volume loss. No evidence of intraparenchymal hemorrhage or hyperattenuating extra-axial fluid collection. VASCULAR STRUCTURES: Atherosclerotic vascular calcifications. BONES: Left maxillary sinus mucosal thickening. Bilateral angulated displaced nasal bone fractures. SCALP/REMAINING SOFT TISSUES: Nasal subcutaneous gas consistent with laceration. ASPECTS Score for Acute Strokes, if applicable: 10 CT/Brain/Head without Contrast IMPRESSION: Nasal fractures. Age-related changes as above, without evidence of acute intracranial hemorrhage in this noncontrast head CT. Electronically Signed: Anish Hargrove MD at 3:32 EDT ,
--- NOTE | 2022-09-17 01:56 | EDS_ITS ---
HPI History of Present Illness Chief Complaint: Dizziness Informant: patient and spouse/S.O. Narrative Narrative: Patient drank a lot of straight whiskey tonight along with some different marijuana than usual, he got up around 1 AM to use the restroom, he seemed d isoriented, he fell several times on the way to the bathroom and on the way back, injuring his nose in his back. Patient states he does not remember any of this, his brought him, he now is back to baseline mental status. States his nose hurts, he denies any vision changes, denies any shortness of breath. Pain is in his upper back more to the right. [facility] Medical History BPH (benign prostatic hyperplasia) CPAP (continuous positive airway pressure) dependence Factor 5 Leiden mutation, heterozygous GERD (gastroesophageal reflux disease) Sleep apnea Home Medications amitriptyline 10 mg tablet 10 mg PO DAILY 09/17/22 [History Last Taken Unknown] cyclobenzaprine 10 mg tablet 10 mg PO TID PRN Muscle Spasm #15 TABLETS 09/17/22 [Rx Last Taken Unknown] finasteride 5 mg tablet 5 mg PO DAILY 09/17/22 [History Last Taken Unknown] fluoxetine 10 mg capsule 10 mg PO DAILY 09/17/22 [History Last Taken Unknown] omeprazole 20 mg capsule,delayed release 20 mg PO DAILY 09/17/22 [History Last Taken Unknown] rosuvastatin 10 mg tablet 10 mg PO DAILY 09/17/22 [History Last Taken Unknown] tramadol 50 mg tablet 50 mg PO Q6H PRN pain 2 days #6 tabs 09/17/22 [Rx Last Taken Unknown] Allergy/AdvReac Type Severity Reaction Status Date / Time No Known Allergies Allergy Verified 09/17/22 01:25 Family History Father Heart disease Hypertension Mother COPD (chronic obstructive pulmonary disease) Surgical History H/O excision of mass Social History household members: spouse Smoking Status: Former smoker alcohol intake: current details: drinks 5-6 shots of whisky a day substance use type: marijuana ROS ROS ED Constitutional Constitutional ED: Denies chills or fever(s) Eyes Eyes: Denies change in vision or diplopia ENT ENT ED: Reports nasal trauma and other Details: Nasal pain ; Denies rhinorrhea or sore throat Cardiovascular Cardiovascular: Denies chest pain or palpitations Respiratory/Chest Respiratory/Chest: Denies cough or dyspnea Gastrointestinal Gastrointestinal: Denies abdominal pain, diarrhea, nausea or vomiting Genitourinary Genitourinary ED: Denies dysuria or hematuria Musculoskeletal Musculoskeletal: Reports back pain; Denies neck pain Integumentary Reports Abrasions; Denies abscess or rash Neurologic Neurologic: Reports headache(s) and other Details: Transient confusion/amnesia ; Denies paresthesias or weakness Psychiatric Psychiatric: Denies anxiety or suicidal thoughts EXAM Physical Exam Const Vital Signs: 09/17/22 01:28 09/17/22 01:31 Temperature 97.8 F Temperature Source Temporal Pulse Rate 70 Respiratory Rate 18 Respiratory Effort Normal Respiratory Pattern Normal Blood Pressure 96/56 L Blood Pressure Mean 69 Pulse Ox 98 Oxygen Delivery Method Room Air Positive well nourished and well developed General Appearance ED: well developed and NAD HEENT Reports TM's clear and moist mucous membranes HEENT Narrative: Trauma/minor tenderness to the nose but nowhere else on the face. Midface stable. No dental injury or loosening/subluxation. No trismus. No malocclusion. There are 2 skin injuries to the nose, one 0.5 cm full-thickness laceration and 1 Y-shaped linear superficial laceration off to the right. No significant swelling or asymmetry. normocephalic Face and Sinus: Negative for facial tenderness Tympanic Membrane ED: Yes TM's clear Eyes PERRL and EOMs intact bilaterally Visual Acuity: other Other Details: no entrapment or pain with extraocular movements Neck full ROM and supple General: Negative for tenderness Chest Wall inspection of chest normal and palpation of chest normal Chest: symmetrical chest wall rise; Negative for crepitus or tenderness Resp normal respiratory effort and clear to auscultation bilaterally Percussion: other equal BS bilat Cardio regular rate, regular rhythm and no murmurs Rate: regular rate Rhythm: regular rhythm GI non-tender and non-distended Auscultation: normoactive bowel sounds Palpation: soft Back/Spine no CVA tenderness Back/Spine Narrative: Tender right rhomboids. Stretching to patient's right arm across his body stretches the area and feels good. No pain or tenderness in the midline/spine including with movement. General Back: other FROM Cervical Spine: Negative for cervical spine tenderness Thoracic Spine / Upper Back: Negative for thoracic spinal tenderness Lumbar Spine / Lower Back: Negative for lumbar spinal tenderness Extremity normal to inspection General Extremety ED: Negative for edema, pulses abnormal or tenderness General Extremity: Negative for edema or pulses abnormal Neuro oriented x3, CN's II-XII intact bilaterally and no sensory deficits noted Neuro Narrative: Seems mildly intoxicated. Jimmy Coma Scale: document GCS findings Spontaneous Obeys Commands Oriented 15 Sensorium / Orientation: awake and alert Motor Exam: strength 5/5 throughout Psych mental status grossly normal and thought process normal Skin no rashes or lesions noted Skin Narrative: Wounds to the nasal bridge only see above Lesions: no lesions Rashes: no rashes MDM MDM MDM Narrative Medical decision making narrative: Labs and a CT head were obtained, I reviewed the images and the report which I agree with, negative for any acute intracranial injury, but nasal fractures present. Patient is doing well now, I suspect this was all related to alcohol and/or drugs; unclear what his THC could have had with it. I do not think he is having a TIA/stroke. His vital signs are normal, his blood pressure is actually a little on the low side but not to the point where we need to intervene emergently, 96/56. Alcohol is 127 and this is long after he stopped drinking. It was probably much higher earlier. Reassured, discharged in stable condition. Dermabonded his nose. Lab Data Attestation: I reviewed the patient's lab results. Labs: Laboratory Results - last 24 hr 09/17/22 02:30 WBC 6.6 RBC 4.49 L Hgb 14.3 Hct 42.4 MCV 94.4 H MCH 31.8 MCHC 33.7 RDW Std Deviation 40.8 RDW Coeff of [place] 11.8 Plt Count 166 MPV 10.1 Immature Gran % (Auto) 0.300 Neut % (Auto) 54.5 Lymph % (Auto) 33.7 [place] % (Auto) 8.0 Eos % (Auto) 3.0 Baso % (Auto) 0.5 Absolute Neuts (auto) 3.6 Absolute Lymphs (auto) 2.24 Nucleated RBC % 0 Sodium 141 Potassium 4.0 Chloride 107 Carbon Dioxide 28.0 Anion Gap 6 BUN 15 Creatinine 1.16 Estim Creat Clear Calc 68.52 Est GFR (MDRD) Af Amer 81 Est GFR (MDRD) Non-Af 67 BUN/Creatinine Ratio 12.9 Glucose 97 Calcium 8.9 Ethyl Alcohol 127.0 Radiography Diagnostic Testing: Clinical Impression(s) from Imaging Studies Brain CT 09/17/22 01:55 IMPRESSION: Nasal fractures. Age-related changes as above, without evidence of acute intracranial hemorrhage in this noncontrast head CT. Electronically Signed: Anish Hargrove MD at 3:32 EDT , Procedures Lacerations nose: Length: 0.5 cm Depth: Sub Q Shape: Linear Laceration repair: Dermabond nose #2: Length: 1 cm Depth: Skin Shape: Stellate Prep: Sterile Conditions and Chlorhexadine Laceration repair: Dermabond Discharge Plan Triage Chief Complaint: Dizziness ED Provider: Brett Marcus Dx/Rx/DC Orders Clinical Impression: Alcohol intoxication, Vestibular disequilibrium, Laceration of nose, Closed fracture nasal bone, Back contusion Instructions: ED Nose Fracture, with X-Ray, ED Laceration, Face: Skin Glue, ED Vertigo, Unspecified Prescriptions: New cyclobenzaprine [cyclobenzaprine] 10 mg tablet 10 mg PO TID PRN (Reason: Muscle Spasm) Qty: 15 0RF tramadol 50 mg tablet 50 mg PO Q6H PRN (Reason: pain) 2 Days Qty: 6 0RF No Action fluoxetine 10 mg capsule 10 mg PO DAILY finasteride 5 mg tablet 5 mg PO DAILY amitriptyline 10 mg tablet 10 mg PO DAILY omeprazole 20 mg capsule,delayed release(DR/EC) 20 mg PO DAILY rosuvastatin 10 mg tablet 10 mg PO DAILY Primary Care Provider: Jules Haynes Referrals: Jules Haynes DO [Primary Care Provider] - As Needed Disposition Disposition: Home, Self Care
[2022-09-17 02:34] LABS: Absolute Lymphocyte Count 2.24 X10^3/uL (0.83-4.51); Absolute Neutrophil Count 3.6 X10^3/uL (2.0-7.7); Basophil# 0.03 X10^3/uL; Basophil% 0.5 % (0-1); Hematocrit 42.4 % (40-54); Hemoglobin 14.3 g/dL (13.0-16.5); Lymphocyte # 2.24 X10^3/ul (0.83-4.51); Lymphocyte % 33.7 % (19-41); Mean Corp Hgb Conc 33.7 g/dL (32-36); Mean Corpuscular Hgb 31.8 pg (27.0-32.0); Mean Corpuscular Volume 94.4 fL (80-94); Mean Platelet Vol. 10.1 fl (6.2-12.0); Monocyte# 0.53 X10^3/uL; NRBC Flagged by Analyzer 0 % (0-5); Neutrophil # 3.62 X10^3/uL (2.7-7.7); Neutrophil % 54.5 % (47-70); Platelet Count 166 K/mm3 (150-450); RBC Distribution Width CV 11.8 % (11.6-14.6); RBC Distribution Width SD 40.8 fl (35.1-43.9); Red Blood Count 4.49 M/mm3 (4.6-6.2); White Blood Count 6.6 K/mm3 (4.4-11.0)
[2022-09-17 02:47] LABS: Anion Gap 6 (5-15); BUN 15 mg/dL (7-18); BUN/Creat Ratio 12.9 RATIO (10-20); Calcium,Total 8.9 mg/dL (8.5-10.1); Chloride 107 mmol/L (98-107); Creatinine, Serum 1.16 mg/dL (0.70-1.30); EST Glomerular Filtration Rate 67 mL/min (>60); Est Glom Filt Rate - Afr Amer 81 mL/min (>60); Estimated Creatinine Clearance 68.52 ml/min; Glucose 97 mg/dL (74-106); Sodium Level 141 mmol/L (136-145)
[2022-09-17] MEDS: Lidocaine/Epi/Tetracaine 50 ML 1 APPLIC TOPICAL (02:56)
[2022-09-17] MEDS: Orphenadrine 60 MG/2 ML Ampul IV (04:02)
[2022-09-17] MEDS: Ketorolac 15 MG/ML Vial IV (04:02)
== END 2022-09-17 04:46 | disposition home or self-care (01) ==
PROVIDERS: Emergency Provider Emergency Medicine; PCP Student in an Organized Health Care Education/Training Program; Visit Provider Emergency Medicine
DX: S02.2XXA Fracture of nasal bones, initial encounter for closed fracture (principal); F10.129 Alcohol abuse with intoxication, unspecified; Y90.6 Blood alcohol level of 120-199 mg/100 ml; S20.221A Contusion of right back wall of thorax, initial encounter; S01.21XA Laceration without foreign body of nose, initial encounter; N40.0 Benign prostatic hyperplasia without lower urinary tract symptoms; K21.9 Gastro-esophageal reflux disease without esophagitis; G47.30 Sleep apnea, unspecified; Z79.899 Other long term (current) drug therapy; Z87.891 Personal history of nicotine dependence
CPT/HCPCS: 12011; 70450; 80048; 82077; 85025; 96361; 96374; 96375; 99284; J7030; A4216

== ENCOUNTER 2024-08-18 20:07 | Emergency (ER) | payer OTHER, SELFPAY ==
[2024-08-18 20:09] VITALS: BP 119/87; PULSE 80; RESP 18; TEMP 36.6; O2SAT 98; BMI 25.0
--- NOTE | 2024-08-18 20:19 | CT_ITS ---
PROCEDURE: ABDOMEN/PELVIS WITHOUT CONT 08/18/2024 REASON FOR EXAM: LLQ PAIN AND HEMATURIA TECHNIQUE: ABDOMEN/PELVIS WITHOUT CONT Noncontrast technique limits evaluation of the abdominal and pelvic viscera. Coronal and Sagittal reconstruction series were provided. One or more dose reduction techniques were used (e.g., Automated exposure control, adjustment of the mA and/or kV according to patient size, use of iterative reconstruction technique). COMPARISON: 09/05/2022 FINDINGS: Dependent atelectasis. Normal heart size. Normal liver, gallbladder, pancreas, spleen, adrenal glands, kidneys. No hydronephrosis or ureteral stone. Unremarkable bladder. No retroperitoneal or pelvic adenopathy. Borderline prominent infrarenal aorta, 3 cm maximum AP dimension. No free air. Nondistended bowel. Normal appendix. No acute large bowel findings. Lumbar spine degeneration. CT/Abdomen/Pelvis without Cont IMPRESSION: No acute abdominopelvic findings. Reading Location: [place] [id number]
--- NOTE | 2024-08-18 20:21 | EDS_ITS ---
HPI <ADITYA Verma - Last Filed: 08/18/24 21:55> History of Present Illness Chief Complaint: Abd Pain Narrative Narrative: 64-year-old male with past medical history of hyperlipidemia, kidney stones, AAA, night terrors presents with abdominal pain. This afternoon he had the sudden urge to urinate and then a sharp pain in the left lower quadrant of his abdomen. He took a nap and when he woke up he urinated and it looked purple. No clots. He urinated again later and it looked pink. The LLQ pain has lessened but is still present. He denies fever or chills. No nausea or vomiting. Normal bowel movements. He had a kidney stone once before that pas sed on its own. He has a AAA they are monitoring. No abdominal surgeries. PFS <ADITYA Verma - Last Filed: 08/18/24 21:55> [facility] Medical History BPH (benign prostatic hyperplasia) CPAP (continuous positive airway pressure) dependence Factor 5 Leiden mutation, heterozygous GERD (gastroesophageal reflux disease) Sleep apnea Home Medications ?Medication ?Instructions ?Recorded ?Last Taken ?Type amitriptyline 10 mg tablet 10 mg PO DAILY 09/17/22 Unk nown History cyclobenzaprine 10 mg tablet 10 mg PO TID PRN Muscle S pasm #15 09/17/22 Unknown Rx TABLETS finasteride 5 mg tablet 5 mg PO DAILY 09/17/22 Unkno wn History fluoxetine 10 mg capsule 10 mg PO DAILY 09/17/22 Unkn own History omeprazole 20 mg capsule,delayed 20 mg PO DAILY Unknown History release rosuvastatin 10 mg tablet 10 mg PO DAILY 09/17/22 Unkn own History tramadol 50 mg tablet 50 mg PO Q6H PRN pain 2 days #6 09/17/22 Unknown Rx tabs ciprofloxacin HCl 500 mg tablet 500 mg PO BID #6 TABLE TS 08/18/24 Unknown Rx Allergy/AdvReac Type Severity Reaction Status Date / Time No Known Allergies Allergy Verified 08/18/24 20:09 Family History Father Heart disease Hypertension Mother COPD (chronic obstructive pulmonary disease) Surgical History H/O excision of mass Social History (Updated 08/18/24 @ 20:13 by Damaris Dave) household members: spouse housing: house Smoking Status: Former smoker alcohol intake: current details: drinks 5-6 shots of whisky a day substance use type: marijuana ROS <ADITYA Verma - Last Filed: 08/18/24 21:55> ROS ED ROS Narrative Constitutional: Negative for fever, chills, malaise. CVS: Negative for chest pain. Respiratory: Negative for shortness of breath. GI: Positive for abdominal pain. Negative for nausea, vomiting, diarrhea, constipation, melena, hematochezia. : Positive for urgency, hematuria. EXAM <ADITYA Verma - Last Filed: 08/18/24 21:55> Physical Exam Narrative Exam Narrative: CONST: Patient appears comfortable walking around the room and then sitting in the bed in no distress. EYES: Normal inspection. NECK: Normal inspection. RESP: No respiratory distress, CTAB. CVS: Regular rate and rhythm, no murmur, no gallop. ABD: Soft and nontender, no guarding or rebound, nondistended. Back: Normal inspection, no CVA tenderness. SKIN: Color normal, no rash, warm, dry, intact. EXTREMITIES: Normal appearance, no pedal edema. NEURO: Alert and answering questions appropriately. PSYCH: Normal affect. Const Vital Signs: 08/18/24 20:09 08/18/24 22:08 Temperature 98 F Temperature Source Oral Pulse Rate 80 78 Respiratory Rate 18 18 Blood Pressure 119/87 H 128/70 H Blood Pressure Mean 97 89 Pulse Ox 98 98 Oxygen Delivery Method Room Air <Dr. Julian Sifuentes, - Last Filed: 08/18/24 22:54> Physical Exam Const Vital Signs: 08/18/24 20:09 08/18/24 22:08 Temperature 98 F Temperature Source Oral Pulse Rate 80 78 Respiratory Rate 18 18 Blood Pressure 119/87 H 128/70 H Blood Pressure Mean 97 89 Pulse Ox 98 98 Oxygen Delivery Method Room Air MDM <ADITYA Verma - Last Filed: 08/18/24 21:55> MDM MDM Narrative Medical decision making narrative: Differential includes but not limited to: Kidney stone, UTI, pyelonephritis 64-year-old male presents with urinary urgency, hematuria, and sudden onset left lower quadrant abdominal pain. He has history of kidney stone x 1 in the past. His pain has subsided and he appears comfortable and nontoxic. Vitals are stable. Normal cardiopulmonary exam. He indicates he has pain in the lateral aspect of his left lower quadrant but there is no tenderness with palpation of his abdomen. No CVA tenderness. CBC is within normal limits. Electrolytes are unremarkable. Creatinine is 1.40. In the past it has ranged between 0.93-1.26 so this may be very minimally elevated. He was given IV fluids. He declined pain or nausea medication and appears very comfortable. CT scan shows no acute findings and no evidence of stone. His urine sample has gross hematuria and is pending analysis. Patient was advised he needs to follow-up with urologist to have this evaluated and that neoplasm is on the differential. I provided urology contact information but he states he would like to follow-up with [facility] and will call and make an appointment. Lab Data Attestation: I reviewed the patient's lab results. Labs: Laboratory Results - last 24 hr 08/18/24 08/18/24 20:23 21:52 WBC 9.4 RBC 4.35 L Hgb 13.9 Hct 39.9 L MCV 91.7 MCH 32.0 MCHC 34.8 RDW Std Deviation 40.1 RDW Coeff of [place] 11.8 Plt Count 178 MPV 10.1 Immature Gran % (Auto) 0.200 Neut % (Auto) 71.0 H Lymph % (Auto) 19.3 [place] % (Auto) 7.7 Eos % (Auto) 1.4 Baso % (Auto) 0.4 Absolute Neuts (auto) 6.6 Absolute Lymphs (auto) 1.80 Nucleated RBC % 0 Sodium 140 Potassium 4.0 Chloride 102 Carbon Dioxide 25.7 Anion Gap 12 BUN 17 Creatinine 1.30 H Estim Creat Clear Calc 59.53 Est GFR (MDRD) Non-Af 61 BUN/Creatinine Ratio 13.3 Glucose 104 H Calcium 9.9 Urine Color Brown Urine Clarity Cloudy Urine pH 6.5 Ur Specific [place] 1.020 Urine Protein 500 H Urine Glucose (UA) Normal Urine Ketones 5 H Urine Occult Blood 250 H Urine Nitrite Negative Urine Bilirubin Negative Urine Urobilinogen 1 H Ur Leukocyte Esterase 25 H Urine RBC > 100 SEEN Urine WBC 10-25 SEEN Ur Squamous Epith Cells 0-5 SEEN Urine Bacteria RARE Urine Mucus 1+ Radiography Diagnostic Testing: Clinical Impression(s) from Imaging Studies Abdomen/Pelvis CT 08/18/24 20:19 IMPRESSION: No acute abdominopelvic findings. Reading Location[facility] <Dr. Julian Sifuentes, DO - Last Filed: 08/18/24 22:54> [facility] Lab Data Labs: Laboratory Results - last 24 hr 08/18/24 08/18/24 20:23 21:52 WBC 9.4 RBC 4.35 L Hgb 13.9 Hct 39.9 L MCV 91.7 MCH 32.0 MCHC 34.8 RDW Std Deviation 40.1 RDW Coeff of [place] 11.8 Plt Count 178 MPV 10.1 Immature Gran % (Auto) 0.200 Neut % (Auto) 71.0 H Lymph % (Auto) 19.3 [place] % (Auto) 7.7 Eos % (Auto) 1.4 Baso % (Auto) 0.4 Absolute Neuts (auto) 6.6 Absolute Lymphs (auto) 1.80 Nucleated RBC % 0 Sodium 140 Potassium 4.0 Chloride 102 Carbon Dioxide 25.7 Anion Gap 12 BUN 17 Creatinine 1.30 H Estim Creat Clear Calc 59.53 Est GFR (MDRD) Non-Af 61 BUN/Creatinine Ratio 13.3 Glucose 104 H Calcium 9.9 Urine Color Brown Urine Clarity Cloudy Urine pH 6.5 Ur Specific [place] 1.020 Urine Protein 500 H Urine Glucose (UA) Normal Urine Ketones 5 H Urine Occult Blood 250 H Urine Nitrite Negative Urine Bilirubin Negative Urine Urobilinogen 1 H Ur Leukocyte Esterase 25 H Urine RBC > 100 SEEN Urine WBC 10-25 SEEN Ur Squamous Epith Cells 0-5 SEEN Urine Bacteria RARE Urine Mucus 1+ Radiography Diagnostic Testing: Clinical Impression(s) from Imaging Studies Abdomen/Pelvis CT 08/18/24 20:19 IMPRESSION: No acute abdominopelvic findings. Reading Location: [facility] Treatment and Re-Evaluation :: I have personally performed a face to face assessment of the patient and have reviewed the IVIS Note. I performed a substantive portion of the visit including all aspects of the following. My carl findings include: History: Patient presents with left flank pain that began tonight. Patient states it began rather suddenly. Patient states his pain is waxing and waning. Currently, patient denies any pain. Patient states it feels similar to prior kidney stone except that it has improved. Patient states his prior kidney stone bleeding was constant. Patient admits to some hematuria. Patient denies any fevers or chills. Patient denies any nausea or vomiting. Exam: Vital signs are stable. Patient is afebrile. Patient is in no acute distress. Oral mucosa is pink and moist. Neck is supple. Trachea is midline. There is no JVD. Heart was regular rate and rhythm. Lungs are clear and equal bilaterally. Abdomen is soft. Bowel sounds are normal. There is some mild left CVA tenderness. There is no rebound or guarding noted. Cranial nerves II through XII are intact. There are no focal motor or sensory deficits. Medical Decision Making: Differential diagnosis includes ureteral calculus, pyelonephritis, diverticulitis, and electrolyte abnormality. CT scan of the abdomen and pelvis will be obtained to assess for ureteral calculus and pyelonephritis. CBC will be obtained to assess for leukocytosis and anemia. Basic metabolic profile will be obtained to assess for electrolyte abnormality and renal function. Urinalysis will be obtained to assess for urinary tract infection and hematuria. CBC was reviewed and was within normal limits. Basic metabolic profile was reviewed. Creatinine was slightly elevated at 1.3. Urinalysis was reviewed. Occult blood was 250 with greater than 100 red blood cells. Leukocyte esterase was 25 with 10-25 white blood cells. There are 05 epithelial cells. There is rare bacteria. Urine culture was ordered. Patient was advised of his findings. Patient was given a short course for Cipro. Patient was instructed to take Tylenol or ibuprofen as needed for pain. Patient was instructed to return if worse in any way. Patient was instructed to follow-up with urology. Patient understood and was agreeable with plan. All questions were answered. Discharge Plan Triage Chief Complaint: Abd Pain ED Midlevel Provider: Annie Jones ED Provider: Julian Sifuentes Dx/Rx/DC Orders Clinical Impression: Hematuria, Abdominal pain Instructions: ED Hematuria Prescriptions: New ciprofloxacin HCl 500 mg tablet 500 mg PO BID Qty: 6 0RF No Action fluoxetine 10 mg capsule 10 mg PO DAILY finasteride 5 mg tablet 5 mg PO DAILY amitriptyline 10 mg tablet 10 mg PO DAILY omeprazole 20 mg capsule,delayed release(DR/EC) 20 mg PO DAILY rosuvastatin 10 mg tablet 10 mg PO DAILY cyclobenzaprine [cyclobenzaprine] 10 mg tablet 10 mg PO TID PRN (Reason: Muscle Spasm) Qty: 15 0RF tramadol 50 mg tablet 50 mg PO Q6H PRN (Reason: pain) 2 Days Qty: 6 0RF Primary Care Provider: Jules Haynes Referrals: Jules Haynes DO [Primary Care Provider] - Lebron Beverly MD [Med Staff - Active Staff] - Activity Restrictions/Additional Instructions: You need to call your urologist to make an appointment for evaluation of blood in your urine. Take Tylenol Motrin as needed for pain. If you have new or worsening symptoms please come back to the ER. Print Language: Wolof Disposition Disposition: Home, Self Care
[2024-08-18 20:30] LABS: Absolute Neutrophil Count 6.6 X10^3/uL (2.0-7.7); Basophil# 0.04 X10^3/uL; Basophil% 0.4 % (0-1); Eosinophil# 0.13 X10^3/uL; Eosinophils% 1.4 % (0-5); Hematocrit 39.9 % (40-54); Hemoglobin 13.9 g/dL (13.0-16.5); Lymphocyte % 19.3 % (19-41); Mean Corp Hgb Conc 34.8 g/dL (32-36); Mean Corpuscular Volume 91.7 fL (80-94); Mean Platelet Vol. 10.1 fl (6.2-12.0); Monocyte# 0.72 X10^3/uL; Monocyte% 7.7 % (0-10); NRBC Flagged by Analyzer 0 % (0-5); Neutrophil # 6.64 X10^3/uL (2.7-7.7); Platelet Count 178 K/mm3 (150-450); RBC Distribution Width CV 11.8 % (11.6-14.6); RBC Distribution Width SD 40.1 fl (35.1-43.9); Red Blood Count 4.35 M/mm3 (4.6-6.2); White Blood Count 9.4 K/mm3 (4.4-11.0)
--- OUTSIDE RECORDS SUMMARY | 2024-08-18 20:40 | XMS RPT_ITS | CCD ---
Author Organization [facility] ion [facility] Care Team Providers Care Case Sealer Name Role Phone Jules Haynes DO Unavailable Jules Haynes DO Primary Care Provider Dr. Jules Haynes Primary Care Provider Dr. Carolina Denis Emergency Provider Dr. Sherron Crockett Admit Provider Dr. Sherron Crockett Attending Provider Dr. Sherron Crockett Other Provider Jules Haynes DO Unavailable Jules Haynes DO Primary Care Provider Dr. Yuval Angel Attending Provider Unavailable Dr. Yuval Angel Other Provider Unavailable Jules Haynes DO Unavailable Jules Haynes DO Primary Care Provider Jules Haynes DO Unavailable Jules Haynes DO Primary Care Provider Keira, [place] Admitting Unavailable Keira, [place] Consulting Unavailable Sherron Crockett Attending Unavailable Jules Haynes Primary Care Unavailable Yuval Angel Attending Unavailable Yuval Angel Consulting Unavailable Brett Marcus Attending Unavailable Jules Haynes Primary Care Unavailable Zulay Sanz Attending Unavailable Jules Haynes Primary Care Unavailable Keira, [place] Admitting Unavailable Yuval Angel Attending Unavailable Keira, [place] Consulting Unavailable Jules Haynes Primary Care Unavailable JULES HAYNES Primary Care Unavailable VIRGINIA LYON Referring Unavailable Milad SADLER, Edinson Olivo Unavailable Jules Haynes DO Primary Care Provider Morgan INSTRUCTOR WATCH ASSEMBLY.[employer] ARCHITECT, Rosalina Albarado Unavailable [facility] INSTRUCTOR WATCH ASSEMBLY.[place] DING Unavailable Perico INSTRUCTOR WATCH ASSEMBLY.TIMUR, Alicia Pleitez Unavailable SUSHANT COLMENARES Attending Unavailable JULES HAYNES Primary Care Unavailable HAYNESJULES BAIRD Primary Care Unavailable KENJI MARR Attending Unavailable HAYNESJULES BAIRD Attending Unavailable HAYNESJULES Primary Care Unavailable JULES HAYNES Primary Care Unavailable JORGE REDDY JR Referring Unavailable SUSHANT COLMENARES Attending Unavailable JULES HAYNES Primary Care Unavailable JULES HAYNES Primary Care Unavailable JORGE REDDY JR Referring Unavailable JORGE REDDY JR Attending Unavailable HAYNESJULES BAIRD Primary Care Unavailable JORGE REDDY JR Attending Unavailable Medications Current Medications Medication Drug Class(es) Dates Sig (Normalized) Sig (Original) amoxicillin 875 mg / clavulanate 125 mg oral tablet (3 sources) Penicillin-class Antibacterial Start: 08-04-2024 End: 08-14-2024 take 1 tablet by mouth twice daily amoxicillin-clavul anate potassium (AUGMENTIN) 875-125 mg per tablet Indications: Dog bite of left hand, initial encounter Take 1 tablet by mouth two times a day for 10 days. 20 tablet 08/04/2024 08/14/2024 Active clotrimazole 10 mg/ml topical cream (4 sources) Azole Antifungal Start: 11-26-2021 End: 12-26-2021 clotrimazole (LOTRIMIN, CLOTRIM) 1 % cream Indications: Tinea corporis Apply to affected area twice daily. 28 g 0 11/26/2021 12/26/2021 Active Start: 11-24-2021 End: 12-08-2021 clotrimazole 1 % oint Apply to affected area twice daily for 14 days. 45 g 0 11/24/2021 11/26/2021 Discontinued Comment on above: Apply to affected ar ea twice daily for 14 days. Apply to affected ar ea twice daily. cyclobenzaprine hydrochloride 10 mg oral tablet (1 source) Muscle Relaxant Start: 023 take 10 mg by mouth three times daily Cyclobenzaprine Active 10 MG PO THREE TIMES A DAY September 17, 2022 12:00am dicyclomine hydrochloride 10 mg oral capsule (20 sources) Anticholinergic Start: 023 take 1 capsule by mouth at bedtime dicyclomine (BENTYL) 10 mg capsule Indications: Irritable bowel syndrome with constipation Take 1 capsule by mouth before meals and at bedtime. For bowels/irritable bowels 90 capsule 2 12/09/2022 Active Start: 10-15-2019 End: 03-04-2020 take 1 tablet by mouth three times daily dicyclomine (BENTYL) 20 mg tablet Indications: Functional bowel disorder Take 1 tablet by mouth three times daily. 90 tablet 2 10/15/2019 03/04/2020 Discontinued Comment on above: Take 1 capsule by mo [facility] before meals and at bedtime. For bowels/irritable bowels finasteride 5 mg oral tablet (20 sources) 5-alpha Reductase Inhibitor Start: 02-27-19 End: 05-13-19 take 1 tablet by mouth once daily finasteride (PROSCAR) 5 mg tablet Indications: Urinary frequency Take 1 tablet by mouth once daily. 90 tablet 3 05/13/2024 Active Start: 03-24-2021 End: 11-26-2021 take 1 tablet by mouth once daily finasteride (PROSCAR) 5 mg tablet Indications: Urinary frequency Take 1 tablet by mouth once daily. 90 tablet 3 11/26/2021 Active Start: 07-31-2019 End: 04-23-2020 take 1 tablet by mouth once daily finasteride (PROSCAR) 5 mg tablet Indications: Urinary frequency Take 1 tablet by mouth once daily. 90 tablet 3 10/15/2019 03/04/2020 Discontinued Comment on above: [facility] FLUoxetine 40 mg oral capsule (20 sources) Serotonin Reuptake Inhibitor Start: 05-13-2024 End: 08-11-2024 take 1 capsule by mouth once daily FLUoxetine (PROZAC) 40 mg capsule Take 1 capsule by mouth once daily. 90 capsule 05/13/2024 Active Start: 12-26-2022 End: 02-28-2024 take 1 capsule by mouth once daily FLUoxetine (PROZAC) 40 mg capsule Take 1 capsule by mouth once daily. 90 capsule 11/30/2023 Active Start: 09-17-2022 take 10 mg by mouth once daily Fluoxetine Active 10 MG PO DAILY September 17, 2022 12:00am Start: 04-11-2022 End: 12-26-2022 take 1 capsule by mouth once daily FLUoxetine (PROZAC) 20 mg capsule Indications: Anxiety with depression Take 1 capsule by mouth once daily. 90 capsule 1 09/07/2022 12/26/2022 Discontinued Start: 11-26-2021 End: 01-31-2022 take 1 capsule by mouth once daily FLUoxetine (PROZAC) 10 mg capsule Indications: Anxiety with depression TAKE ONE CAPSULE BY MOUTH EVERY DAY 30 capsule 1 01/31/2022 Active Start: 11-25-2020 End: 10-20-2021 take 1 capsule by mouth once daily FLUoxetine HCl (PROZAC) 40 mg capsule Indications: Situational anxiety , CHRISTOPHER (generalized anxiety disorder) Take 1 capsule by mouth once daily. 30 capsule 11 11/25/2020 10/20/2021 Discontinued Start: 01-01-2020 End: 04-08-2020 take 1 capsule by mouth once daily FLUoxetine (PROZAC) 20 mg capsule Indications: Depression, unspecified depression type Take 1 capsule by mouth once daily. 90 capsule 3 01/01/2020 04/08/2020 Discontinued Comment on above: Take 1 capsule by mo [facility] once daily. TAKE ONE CAPSULE BY MOUTH EVERY DAY ibuprofen 800 mg oral tablet (10 sources) Nonsteroidal Anti-inflammatory Drug Start: 04-09-19 25 take 1 tablet by mouth every eight hours as needed ibuprofen (MOTRIN) 800 mg tablet Take 1 tablet by mouth three times a day as needed for pain or fever (specify temp.). 100 tablet 1 04/09/2024 Active LORazepam 0.5 mg oral tablet (2 sources) Benzodiazepine Start: 11-27-19 End: 12-27-19 22 take 1 tablet by mouth once daily as needed LORazepam (ATIVAN) 0.5 mg Indications: Anxiety with depression Take 1 tablet by mouth once daily as needed for up to 30 days. 30 tablet 0 11/26/2021 12/26/2021 Active Comment on above: Take 1 tablet by aki th once daily as needed for up to 30 days. melatonin 5 mg chewable tablet (20 sources) Start: 01-08-20 End: 10-06-19 take 1 tablet by mouth once daily at bedtime melatonin 5 mg chew Indications: RBD (REM behavioral disorder) , Shift work sleep disorder Take 1 tablet by mouth daily at bedtime. 30 tablet 5 04/08/2024 10/05/2024 Active phenylephrine hydrochloride 25 mg/ml ophthalmic solution (2 sources) alpha-1 Adrenergic Agonist Start: 08-15-19 End: 08-16-19 PHENYLephrine 2.5 % 1 Drop (AK-DILATE, LUCY-SYNEPHRINE) proparacaine hydrochloride 5 mg/ml ophthalmic solution (2 sources) Local Anesthetic Start: 08-15-19 End: 08-16-19 proparacaine 0.5 % 1 Drop (ALCAINE) rosuvastatin calcium 20 mg oral tablet (20 sources) HMG-CoA Reductase Inhibitor Start: 06-29-19 take 1 tablet by mouth once daily in the evening rosuvastatin (CRESTOR) 20 mg tablet Take 1 tablet by mouth once daily. 90 tablet 3 05/21/2024 1:27 PM EDT 06/29/2023 Active Start: 10-27-2021 End: 06-29-2023 take 1 tablet by mouth once daily at bedtime rosuvastatin (CRESTOR) 10 mg tablet Indications: Hypercholesteremia take one tablet by mouth every day at bedtime 90 tablet 3 11/24/2022 06/29/2023 Discontinued Start: 02-12-2019 End: 10-20-2021 take 1 tablet by mouth once daily at bedtime rosuvastatin (CRESTOR) 10 mg tablet Indications: Hypercholesteremia Take 1 tablet by mouth daily at bedtime. 90 tablet 3 02/12/2019 10/20/2021 Discontinued Comment on above: Take 1 tablet by aki th daily at bedtime. take one tablet by m outh every day at bedtime traMADol hydrochloride 50 mg oral tablet (1 source) Opioid Agonist Start: 09-18-19 take 50 mg by mouth every six hours Tramadol Active 50 MG PO EVERY 6 HOURS 6 2 September 17, 2022 3:47am tropicamide 10 mg/ml ophthalmic solution (2 sources) Anticholinergic Start: 08-15-19 End: 08-16-19 tropicamide 1 % 1 Drop (MYDRIACYL) Completed/Discontinued Medications Medication Drug Class(es) Dates Sig (Normalized) Sig (Original) amitriptyline hydrochloride 10 mg oral tablet (20 sources) Tricyclic Antidepressant Start: 09-17-2022 take 10 mg by mouth once daily Amitriptyline Active 10 MG PO DAILY September 17, 2022 12:00am Start: 06-17-2022 End: 01-08-2024 take 2 tablets by mouth once daily at bedtime amitriptyline (ELAVIL) 10 mg tablet Indications: Anxiety with depression Take 2 tablets by mouth daily at bedtime. 180 tablet 3 07/31/2023 01/08/2024 Discontinued Start: 11-08-2021 End: 06-17-2022 take 1 tablet by mouth once daily at bedtime amitriptyline (ELAVIL) 10 mg tablet Take 1 tablet by mouth daily at bedtime. 90 tablet 3 11/08/2021 06/17/2022 Discontinued Start: 04-14-2021 End: 10-20-2021 take 1 tablet by mouth once daily at bedtime amitriptyline (ELAVIL) 10 mg tablet Take 1 tablet by mouth daily at bedtime. 90 tablet 3 04/14/2021 10/20/2021 Discontinued Comment on above: Take 1 tablet by aki th daily at bedtime. Take 2 tablets by mo uth daily at bedtime. bisacodyl 5 mg delayed release oral tablet (5 sources) Stimulant Laxative Start: 06-03-2020 End: 10-20-2021 Bisacodyl (DULCOLAX) 5 mg tab Indications: Tenesmus Use as directed for Miralax / Gatorade Bowel Prep Kit 4 tablet 0 06/03/2020 10/20/2021 Discontinued Start: 10-15-2019 End: 03-04-2020 Bisacodyl (DULCOLAX) 5 mg ta b Indications: Functional bowel disorder Use as directed for Miralax / Gatorade Bowel Prep Kit 4 tablet 10/15/2019 03/04/2020 Discontinued Comment on above: Use as directed for Miralax / Gatorade Bowel Prep Kit cefdinir 300 mg oral capsule (2 sources) Cephalosporin Antibacterial Start: 022 End: 023 take 300 mg by mouth every twelve hours Cefdinir Discontinued 300 MG PO Q12H September 27, 2021 12:00am September 17, 2022 1:26am cholecalciferol 0.125 mg oral capsule (4 sources) Vitamin D Start: 021 End: 022 take 1 capsule by mouth once daily Cholecalciferol, Vitamin D3, 125 mcg (5,000 unit) cap Indications: Vitamin D deficiency Take 1 capsule by mouth once daily. 90 capsule 3 03/05/2020 10/20/2021 Discontinued Comment on above: Take 1 capsule by mo [facility] once daily. clonazePAM 1 mg oral tablet (20 sources) Benzodiazepine Start: 024 End: 026 clonazePAM (KLONOPIN) 1 mg tablet Indications: RBD (REM behavioral disorder) Take 1 tab QHS. 30 tablet 08/06/2024 08/12/2024 Discontinued Start: 08-30-2023 End: 02-08-2024 clonazePAM (KLONOPIN) 1 mg t ablet Indications: RBD (REM behavioral disorder) Take 1 tab QHS. 30 tablet 2 01/08/2024 Active Start: 06-23-2023 End: 09-23-2023 clonazePAM (KLONOPIN) 0.5 mg tablet Indications: RBD (REM behavioral disorder) , PLMD (periodic limb movement disorder) Take 1/2 tabet 30 minutes prior to bedtime. If still symptoms, please increase to 1 tablet 30 minutes prior to bedtime. 30 tablet 2 06/23/2023 08/30/2023 Discontinued Gatorade Sports Drink (5 sources) Start: 06-03-2020 End: 10-20-2021 Gatorade Sports Drink Indica tions: Tenesmus Use as directed for Miralax / Gatorade Bowel Prep Kit 64 oz 0 06/03/2020 10/20/2021 Discontinued Start: 06-03-2020 Gatorade Sport s Drink Indications: Tenesmus Use as directed for Miralax / Gatorade Bowel Prep Kit 64 oz 0 06/03/2020 Active Start: 10-15-2019 End: 03-04-2020 Gatorade Sports Drink Indica tions: Functional bowel disorder Use as directed for Miralax / Gatorade Bowel Prep Kit 64 oz 10/15/2019 03/04/2020 Discontinued Comment on above: Use as directed for Miralax / Gatorade Bowel Prep Kit hyoscyamine sulfate 0.125 mg sublingual tablet (4 sources) Start: End: take 1 tablet under the tongue once daily as needed hyoscyamine sublingual (LEVSIN SL) 0.125 mg Indications: Irritable bowel syndrome with diarrhea For irritable bowel syndrome, Take 1-2 tablets under tongue every 4hrs as needed. Max 12 tabs per day. 60 tablet 1 03/24/2021 10/20/2021 Discontinued Comment on above: For irritable bowel syndrome, Take 1-2 tablets under tongue every 4hrs as needed. Max 12 tabs per day. lansoprazole 30 mg delayed release oral capsule (5 sources) Proton Pump Inhibitor Start: End: take 1 capsule by mouth once daily lansoprazole (PREVACID) 30 mg capsule Indications: GERD without esophagitis Take 1 capsule by mouth once daily. 90 capsule 3 06/19/2017 10/20/2021 Discontinued Comment on above: Take 1 capsule by [facility] once daily. levothyroxine sodium 0.05 mg oral tablet (5 sources) l-Thyroxine Start: End: take 1 tablet by mouth once daily for thyroid dysfunction levothyroxine (LEVOXYL) 50 mcg tablet Indications: Subclinical hypothyroidism Take 1 tablet by mouth once daily. Take on empty stomach. For Thyroid 0 11/30/2020 10/21/2021 Discontinued Comment on above: Take 1 tablet by [facility] once daily. Take on empty stomach. For Thyroid meclizine hydrochloride 25 mg oral tablet (7 sources) Antiemetic Start: 023 End: take 1 tablet by mouth three times daily meclizine (ANTIVERT) 25 mg tab Take 1 tablet by mouth three times a day. 30 tablet 0 12/19/2022 03/21/2023 Discontinued Start: 07-10-2019 End: 03-04-2020 take 1 tablet by mouth three times daily meclizine (ANTIVERT) 25 mg tab Take 1 tablet by mouth three times daily. 30 tablet 07/10/2019 03/04/2020 Discontinued Comment on above: Take 1 tablet by aki three times a day. omeprazole 20 mg delayed release oral capsule (20 sources) Proton Pump Inhibitor Start: 3 End: 5 take 1 capsule by mouth once daily 30 minutes before breakfast omeprazole (PRILOSEC) 20 mg capsule Indications: GERD without esophagitis Take 1 capsule by mouth once daily. 30 min before breakfast 90 capsule 3 09/07/2022 08/06/2024 Discontinued Comment on above: Take 1 capsule by mo [facility] once daily. 30 min before breakfast perflutren lipid microspheres 1.3 mL in NaCl (PF) 0.9% 10 mL injection (DEFINITY) (1 source) Start: 1 End: 2 perflutren lipid microspheres 1.3 mL in NaCl (PF) 0.9% 10 mL injection (DEFINITY) polyethylene glycol 3350 86612 mg powder for oral solution (5 sources) Osmotic Laxative Start: 1 End: 2 polyethylene glycol 3350 (MIRALAX, GLYCOLAX) 17 gram/dose powder Indications: Tenesmus Use as directed for Miralax / Gatorade Bowel Prep Kit 238 g 0 06/03/2020 10/20/2021 Discontinued Start: 10-15-2019 End: 03-04-2020 polyethylene glycol 3350 (PA RALAX, GLYCOLAX) 17 gram/dose powder Indications: Functional bowel disorder Use as directed for Miralax / Gatorade Bowel Prep Kit 238 g 10/15/2019 03/04/2020 Discontinued Comment on above: Use as directed for Miralax / Gatorade Bowel Prep Kit prazosin 1 mg oral capsule (11 sources) alpha-Adrenergic Faith Start: 10-06-2022 take 1 capsule by mouth at bedtime, then take 2 capsules by mouth once daily at bedtime prazosin (MINIPRESS) 1 mg cap Indications: Nightmares , Chronic insomnia , Restless sleeper Take 1mg by mouth at bedtime x3 days, then increase to 2mg daily at bedtime. 60 capsule 1 10/06/2022 Active Comment on above: Take 1mg by mouth at bedtime x3 days, then increase to 2mg daily at bedtime. 125 ml sodium chloride 9 mg/ml prefilled syringe (1 source) Start: 02-28-2020 End: 05-29-2021 sodium chloride 0.9 % (flush) 10 mL (BD POSIFLUSH) Problems Active Problems Problem Classification Problem Date Documented Da te Episodic/Chronic Abdominal pain (6 sources) Abdominal pain; Translations: [Unspecified abdominal pain] Onset: 3 09-07-2022 Episodic Alcohol-related disorders (1 source) Alcohol abuse; Translations: [Alcohol abuse, uncomplicated] 2023 Chronic Alcohol-related disorders (1 source) Alcohol intoxication; Translations: [Alcohol use, unspecified with intoxication, unspecified] 09-17-2022 Episodic Anxiety disorders (20 sources) Anxiety; Translations: [Other specified anxiety disorders] Onset: 8 06-19-2017 Chronic Aortic and peripheral arterial embolism or thrombosis (1 source) Embolism of abdominal aorta; Translations: [Other arterial embolism and thrombosis of abdominal aorta] 01-30-2023 Chronic Aortic; peripheral; and visceral artery aneurysms (2 sources) Juxtarenal aortic aneurysm; 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)] 05-22-2023 Chronic Blindness and vision defects (3 sources) Abnormal vision; Translations: [Unspecified visual disturbance] 07-31-2023 Episodic Cataract (1 source) Bilateral cortical age-related cataract eyes; Translations: [Cortical age-related cataract, bilateral] 08-15-2023 Chronic Conditions associated with dizziness or vertigo (4 sources) Labyrinthine disorder; Translations: [Labyrinthine dysfunction, unspecified ear] Onset: 3 09-17-2022 Episodic Disorders of lipid metabolism (20 sources) Hypercholesterolemia; Translations: [Pure hypercholesterolemia, unspecified] Onset: 4 03-29-2013 Chronic E Codes: Natural/environment (1 source) Bitten by dog, initial encounter; Translations: [Dog bite of left hand, initial encounter] Onset: 5 Episodic Esophageal disorders (20 sources) Gastroesophageal reflux disease without esophagitis; Translations: [Gastro-esophageal reflux disease without esophagitis] Onset: 8 06-19-2017 Chronic Immunizations and screening for infectious disease (1 source) Needs influenza immunization; Translations: [Encounter for immunization] 03-25-2024 Episodic Miscellaneous mental health disorders (20 sources) Dream anxiety disorder; 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 Mood disorders (20 sources) Depressive disorder; Translations: [Depression] Onset: 4 03-29-2013 Chronic Mycoses (2 sources) Tinea corporis; Translations: [Tinea corporis] Episodic Nausea and vomiting (4 sources) Nausea and vomiting; Translations: [Nausea with vomiting, unspecified] 02-01-2021 Episodic Nonspecific chest pain (1 source) Tight chest; Translations: [Other chest pain] 02-28-2020 Episodic Nutritional deficiencies (20 sources) Vitamin D deficiency; Translations: [Vitamin D deficiency, unspecified] Onset: 9 06-20-2018 Chronic Occlusion or stenosis of precerebral arteries (1 source) Bilateral stenosis of carotid arteries; Translations: [Occlusion and stenosis of bilateral carotid arteries] 05-22-2023 Chronic Open wounds of extremities (8 sources) Laceration of left forearm; Translations: [Laceration without foreign body of left forearm, initial encounter] Onset: 5 Episodic Open wounds of head; neck; and trunk (1 source) Laceration of nose; Translations: [Laceration without foreign body of nose, initial encounter] 09-17-2022 Episodic Osteoarthritis (20 sources) Osteoarthritis of right knee joint; Translations: [Unilateral primary osteoarthritis, right knee] Onset: 1 11-25-2020 Chronic Other aftercare (1 source) Wound finding; Translations: [Encounter for other specified aftercare] Episodic Other aftercare (1 source) Post-discharge follow-up; Translations: [Encounter for follow-up examination after completed treatment for conditions other than malignant neoplasm] 09-07-2022 Episodic Other aftercare (1 source) Taking high risk medication; Translations: [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] 01-08-2024 Episodic Other circulatory disease (1 source) Elevated blood-pressure reading without diagnosis of hypertension; Translations: [Elevated blood-pressure reading, without diagnosis of hypertension] Episodic Other ear and sense organ disorders (1 source) Impaired auditory discrimination; Translations: [Other abnormal auditory perceptions, left ear] 11-01-2022 Episodic Other gastrointestinal disorders (20 sources) Irritable bowel syndrome with diarrhea; Translations: [Irritable bowel syndrome with diarrhea] Onset: 2 03-24-2021 Chronic Other gastrointestinal disorders (20 sources) Irritable bowel syndrome characterized by constipation; Translations: [Irritable bowel syndrome with constipation] Onset: 3 12-15-2022 Chronic Other nervous system disorders (3 sources) Circadian rhythm sleep disorder of shift work type; Translations: [Circadian rhythm sleep disorder, shift work type] 01-08-2024 Chronic Other nervous system disorders (7 sources) Chronic low back pain; Translations: [Other chronic pain] Onset: 6 09-08-2015 Chronic Other nutritional; endocrine; and metabolic disorders (20 sources) Obese class I; Translations: [Obesity, unspecified] Onset: 8 06-19-2017 Chronic Other skin disorders (2 sources) Night sweats; Translations: [Generalized hyperhidrosis] 09-07-2022 Episodic Other upper respiratory disease (1 source) Chronic rhinitis; Translations: [Chronic rhinitis] 11-01-2022 Chronic Other upper respiratory disease (1 source) Deviated nasal septum; Translations: [Deviated nasal septum] 11-01-2022 Episodic Other upper respiratory infections (3 sources) Sinusitis; Translations: [Chronic sinusitis, unspecified] 11-30-2015 Chronic Residual codes; unclassified (20 sources) Obstructive sleep apnea syndrome; Translations: [Obstructive sleep apnea (adult) (pediatric)] Onset: 7 03-30-2016 Chronic Residual codes; unclassified (2 sources) Obstructive sleep apnea (adult) (pediatric); Translations: [BOBBY (obstructive sleep apnea)] Onset: 7 Chronic Residual codes; unclassified (1 source) Daytime somnolence; Translations: [Other hypersomnia] 12-16-2022 Chronic Residual codes; unclassified (1 source) Dream enactment behavior; Translations: [REM sleep behavior disorder] 12-16-2022 Chronic Residual codes; unclassified (1 source) Sleep apnea; Translations: [Sleep apnea, unspecified] 05-22-2023 Chronic Residual codes; unclassified (20 sources) REM sleep behavior disorder; Translations: [REM sleep behavior disorder] Onset: 4 06-23-2023 Chronic Residual codes; unclassified (12 sources) Periodic limb movement disorder; Translations: [Periodic limb movement disorder] Onset: 5 06-23-2023 Chronic Residual codes; unclassified (7 sources) Periodic leg movements of sleep ; Translations: [Periodic limb movement disorder] Onset: 5 03-25-2024 Chronic Residual codes; unclassified (1 source) REM sleep behavior disorder; Translations: [RBD (REM behavioral disorder)] Onset: 4 Chronic Residual codes; unclassified (1 source) Stabbing pain; Translations: [Pain, unspecified] Episodic Residual codes; unclassified (3 sources) Restless sleep; Translations: [Sleep disorder, unspecified] 10-06-2022 Episodic Residual codes; unclassified (1 source) Sleep disorder, unspecified; Translations: [Restless sleeper] Onset: 3 Episodic Residual codes; unclassified (3 sources) Current drinker; Translations: [Other specified health status] 12-26-2022 Episodic Skull and face fractures (2 sources) Closed fracture of nasal bones; Translations: [Fracture of nasal bones, initial encounter for closed fracture] 09-17-2022 Episodic Substance-related disorders (3 sources) Marijuana user; Translations: [Cannabis use, unspecified, uncomplicated] 12-26-2022 Episodic Superficial injury; contusion (1 source) Contusion of back; Translations: [Contusion of unspecified back wall of thorax, initial encounter] 09-17-2022 Episodic Thyroid disorders (20 sources) Subclinical hypothyroidism; Translations: [Other specified hypothyroidism] Onset: 1 11-25-2020 Chronic Unclassified (1 source) APPOINTMENT CANCELLED 01-09-2023 Unclassified (1 source) NO SHOW 09-19-2023 Past or Other Problems Problem Classification Problem Date Documented Da te Episodic/Chronic Genitourinary symptoms and ill-defined conditions (20 sources) Increased frequency of urination; Translations: [Frequency of micturition] Onset: 03-24-2021 03-24-2021 Episodic Malaise and fatigue (20 sources) Fatigue; Translations: [Other fatigue] Onset: 06-20-2018 03-24-2021 Episodic Other aftercare (1 source) 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; Translations: [High risk medication use] Onset: 01-08-2024 Episodic Other and unspecified benign neoplasm (20 sources) History of polyp of colon; Translations: [Personal history of colonic polyps] Onset: 03-10-2016 03-10-2016 Episodic Other gastrointestinal disorders (20 sources) Diarrhea; Translations: [Diarrhea, unspecified] Onset: 11-25-2020 11-25-2020 Episodic Other gastrointestinal disorders (20 sources) Esophageal dysphagia; Translations: [Other dysphagia] Onset: 03-24-2021 03-24-2021 Episodic Other non-traumatic joint disorders (20 sources) Pain in right knee; Translations: [Pain in joint, lower leg] Onset: 04-13-2020 11-25-2020 Episodic Other non-traumatic joint disorders (20 sources) Pain in right hip joint; Translations: [Pain in right hip] Onset: 04-13-2020 04-13-2020 Episodic Other non-traumatic joint disorders (20 sources) Hip pain; Translations: [Pain in right hip] Onset: 04-13-2020 04-13-2020 Episodic Residual codes; unclassified (20 sources) Detailed recall of dream; Translations: [Other general symptoms and signs] Onset: 12-15-2022 12-15-2022 Episodic Skin and subcutaneous tissue infections (9 sources) Cellulitis and abscess of lower limb; Translations: [Cellulitis of left lower limb] Onset: 09-29-2021 Episodic Spondylosis; intervertebral disc disorders; other back problems (20 sources) Chronic low back pain; Translations: [Lumbago with sciatica, left side] Onset: 09-08-2015 09-08-2015 Episodic Results Test Name Value Interpretation Reference Range Facility [facility] 08-12-2024 CNOV Office Visit (ALANWST ) KACEY BENTLEY ([id number]) 1960 M Date Time Provider Department 08/12/24 1:30 PM SUSHANT COLMENARES During your visit today, we recorded the following information about you: Pulse Respiration Blood pressure Weight 98/minute 16/minute 94/64 84.4 kg Sushant Colmenares APRN.TIMUR 08/12/2024 4:55 PM Signed [facility] Follow up/ Established patient visit Recording using ambient AI software for draft documentation of the visit was discussed with the 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 Obstructive sleep apnea (adult) (pediatric) - ICD9: 327.23, ICD10: G47.33 (primary diagnosis) Patient continues to practice positional therapy. Note that he has known moderate BOBBY exacerbated to severe when also in REM. Uncertain to what extent behaviors at night might be secondary to respiratory events as well. Pt declines PAP. Encouraging pt to keep appt with dentistry for possible oral/dental appliance. 2. High risk medication use - ICD9: V58.69, ICD10: Z79.899 Referring to Klonopin - needs yearly labs. - TOXICOLOGY SCREEN, ROUTINE URINE - BENZO CONFIRM, URINE Refills provided but will cx if invalid or inappropriate lab findings. 3. RBD (REM behavioral disorder) - ICD9: 327.42, ICD10: G47.52 Patient continues to act out at night. Reports later in night and appears associated with dreams. Already on Klonopin 1.0mg qhs which has improved symptoms. Unclear as to why, but again taking Prozac at night which can trigger RBD symptoms in about 6% of users, and thus again encouraged pt to take Prozac in AM. Will add Melatoin 5mg to Klonopin at night to see if this improves behaviors - choice to add melatonin due to shift work below. SE and ADRs d/w pt. Refills provided. 4. PLMD (periodic limb movement disorder) - ICD9: 327.51, ICD10: G47.61 Possibly exacerbated by Elavil and Prozac, neither of which has benefited sleep. Moving Prozac to AM as above. Stopping Elavil as has never resulted in any benefits. 5. 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 Likely contributing to any sleepiness. Thus, choosing to use melatonin for RBD at this time as it might also help patient adjust to sleep schedules more quickly. Jorge Reddy MD CURRENT VISIT: 08/12/2024 - Sleep Disturbances - Patient is a 64-year-old male presenting for routine f/u for clonazepam 1 mg QHS refill for RBD. Since starting clonazepam he hasn't fallen out of bed or gotten injured due to RBD. - last appt with Dr Reddy was 01/08/24 - pt stopped drinking etoh - Uses cannabis (Indica) to help with sleep (one toke) and Sativa (2-3 tokes) during the day for energy and focus. - Uses melatonin 5 mg every night and takes Prozac at night. Recommendation had been made to take prozac in the AM but he forgets to take it then, so he takes it with all his other meds at night. - Previously used amitriptyline for insomnia but is no longer on it. 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 - Reports waking up approx 4 times per night but is able to fall back asleep quickly. - Has a routine of going to bed by 20:00 and waking up at 04:00. - Plans to file for Social Security in September and eventually reduce work hours to three days a week. - reports having plenty of energy and staying active, such as sanding the deck until 21:30 on nights off. - Medication and Health - Currently on Augmentin for a dog bite. - Has an FMLA approved but feels uncomfortable using it. Clonazepam 1 mg #30 last filled 08/06/24 SLEEP APNEA Sleep apnea type : BOBBY, Most Recent Apnea-Hypopnea Index (AHI): 10, supine 22, off-supine 1.8, off-supine REM 3.4 Treatment : positional, goes from side to side, not comfortable on back -------- Latest Reference Range AND Units 01/08/24 11:32 Amphetamines, Urine Negative Negative Barbiturates, Urine Negative Negative Benzodiazepines, Urine Negative Preliminary positive ! Cannabinoids, Urine Negative Preliminary positive ! Cocaine, Urine Negative Negative Ethanol, Urine <11 mg/dL <11 Opiates, Urine Negative Negative Oxycodone, Urine Negative Negative Phencyclidine, Urine Negative Negative 7-Aminoclonazepam, Urine <40 ng/mL 481 (H) Alpha-hydroxyalprazola m, Urine <60 ng/mL <60 Alpha-hydroxytriazolam , Urine <40 ng/mL <40 Lorazepam, Urine <40 ng/mL <40 Nordiazepam, Urine <40 ng/mL <40 (more content not included)... Normal [facility] CNOVon 08-04-2024 CN Office Visit (NAGIWA ) MCKACEY Ragsdale Delilah ([id number]) 1960 M Date Time Provider Department 08/04/24 2:15 PM KENJI MARR During your visit today, we recorded the following information about you: Pulse Respiration Blood pressure Weight 70/minute 16/minute 137/78 85.7 kg Kenji Marr PA-C 08/04/2024 2:47 PM Signed This note was created using [employer]. Subjective Kacey Bentley is a 64 year old male. Patient is a 64-year-old male who arrives for evaluation of redness and swelling to his left hand secondary to a dog bite injury that he sustained yesterday evening. Patient reports that he was at home trying to separate his 2 dogs while they were fighting when his [place] Ang quickly bit his radial left hand. Patient states that the dog immediately released and he sustained no direct blow or crush injury to his left hand. Patient has noted increased redness and swelling to the dorsal aspect of his left hand with pain radiating to his left index finger. Patient did not sustain any additional injury. Patient states that his tetanus immunization is current and that all of his [place] Ang's immunizations are also current. Patient has no history of diabetes and is not on anticoagulant medication. Review of Systems Skin: Positive for wound. Dog Bite Left Hand All other systems reviewed and are negative. Objective BP 137/78 Pulse 70 Resp 16 Wt 85.7 kg (188 lb 15 oz) SpO2 97% BMI 26.35 kg/m? Physical Exam Vitals and nursing note reviewed. Constitutional: Appearance: Normal appearance. He is normal weight. HENT: Head: Normocephalic and atraumatic. Nose: Nose normal. Mouth/Throat: Mouth: Mucous membranes are moist. Pharynx: Oropharynx is clear. Eyes: Extraocular Movements: Extraocular movements intact. Conjunctiva/sclera: Conjunctivae normal. Pupils: Pupils are equal, round, and reactive to light. Cardiovascular: Rate and Rhythm: Normal rate. Pulses: Normal pulses. Pulmonary: Effort: Pulmonary effort is normal. Breath sounds: Normal breath sounds. Musculoskeletal: General: Swelling, tenderness and signs of injury present. No deformity. Normal range of motion. Cervical back: Normal range of motion and neck supple. Skin: General: Skin is warm and dry. Capillary Refill: Capillary refill takes less than 2 seconds. Findings: Erythema present. No bruising. Comments: Two discrete 0.5 cm puncture wounds are noted to the radial aspect of the left hand. Wound depth appears superficial and there is coagulated blood to the sites. No bleeding, serous or purulent fluid is noted. There is no induration or fluctuance noted to the sites. There is no ecchymosis noted to the left hand and fingers. MSP to the left fingers and hand is intact. Patient demonstrates slightly decreased range of motion in flexion to the left index finger secondary to pain. Product Safety Tester is otherwise strong and equal. Neurological: General: No focal deficit present. Mental Status: He is alert and oriented to person, place, and time. Psychiatric: Mood and Affect: Mood normal. Behavior: Behavior normal. Thought Content: Thought content normal. Judgment: Judgment normal. Assessment and Plan Physical exam findings as noted above. Patient was provided with a prescription for Augmentin 875-125 mg and wound care instructions were discussed. Patient was very clearly instructed to report to an emergency department if he notes any worsening symptoms. Patient and his verbalize excellent understanding of all instructions. CLINICAL IMPRESSION: Dog Bite Left Hand ASSESSMENT/PLAN: 1. Dog bite of left hand, initial encounter - ICD9: 882.0, E906.0, ICD10: S61.452A, W54.0XXA - AMOXICILLIN 875 MG-POTASSIUM CLAVULANATE 125 MG TABLET MDM Risk of Complications, Morbidity, and/or Mortality Presenting problems: low Diagnostic procedures: low Management options: clari Marr PA-C Allergies As of Date: 08/04/2024 (No Known Allergies) Date Reviewed: 08/04/2024 Reviewed by: Zulay Julien MA - Fully Assessed Reason for Visit: Dog Bite [[id number]] Cmt: Was bite by dog. Refill Request [94] Cmt: Wants refill of klonipin Primary Visit Diagnosis:Dog bite of left hand, initial encounter [S61.452A, W54.0XXA] Order(s):amoxicillin-c lavulanate potassium (AUGMENTIN) 875-125 mg per tabletTake 1 tablet by mouth two times a day for 10 days.Disp: 20 tabletRfl: 0 Prescriptions as of 08/04/2024 - amoxicillin-clavulanat e potassium (AUGMENTIN) 875-125 mg per tablet Take 1 tablet by mouth two times a day for 10 days. - FLUoxetine (PROZAC) 40 mg capsule Take 1 capsule by mouth once daily. - clonazePAM (KLONOPIN) 1 mg tablet Take 1 tab QHS. Patient should start on May 31, 2024. - finasteride (PROSCAR) 5 mg tablet Take 1 tablet by mouth once daily. - clonazePAM (KLONOPIN) 1 mg tablet Take 1 (more content not included)... Normal [facility] Meseret 04-08-2024 TIMURN Telephone (FAMPWS) MCKACEY Ragsdale ([id number]) 1960 M Date Time Provider Department 04/08/24 JULES HAYNES During your visit today, we recorded the following information about you: Hanh Daley RUBEN Mazariegos 04/08/2024 2:30 PM Signed Copied from phone encounter. Good morning. Jose Ramon hurt his shoulder muscle and we have tried advil and Tylenol but it does t work as well as my prescription of ibuprofen 800mg I had. Could he please have a prescription sent to [facility] in [place]. Thank you. Jonathan. Jules Haynes DO 04/09/2024 8:24 AM Signed Okay for rx as below Jules Haynes DO The following approved medication requests have been transmitted electronically. Requested Prescriptions Signed Prescriptions Disp Refills ibuprofen (MOTRIN) 800 mg tablet 100 tablet 1 Sig: Take 1 tablet by mouth three times a day as needed for pain or fever (specify temp.). Authorizing Provider: JULES HAYNES DO Rowland, Kathryn, MA 04/09/2024 8:57 AM Signed Pt notified. Rand Villegas MA Allergies As of Date: 04/08/2024 (No Known Allergies) Date Reviewed: 03/25/2024 Reviewed by: Carlos Rizvi LPN - Fully Assessed Order(s):ibuprofen (MOTRIN) 800 mg tabletTake 1 tablet by mouth three times a day as needed for pain or fever (specify temp.).Disp: 100 tabletRfl: 1 Prescriptions as of 04/09/2024 - ibuprofen (MOTRIN) 800 mg tablet Take 1 tablet by mouth three times a day as needed for pain or fever (specify temp.). - melatonin 5 mg chew Take 1 tablet by mouth daily at bedtime. - finasteride (PROSCAR) 5 mg tablet Take 1 tablet by mouth once daily. - clonazePAM (KLONOPIN) 1 mg tablet Take 1 tab QHS. - FLUoxetine (PROZAC) 40 mg capsule Take 1 capsule by mouth once daily. - rosuvastatin (CRESTOR) 20 mg tablet Take 1 tablet by mouth once daily. - dicyclomine (BENTYL) 10 mg capsule Take 1 capsule by mouth before meals and at bedtime. For bowels/irritable bowels - omeprazole (PRILOSEC) 20 mg capsule Take 1 capsule by mouth once daily. 30 min before breakfast Meds Comments as of 04/05/2023: 2023: Taking Vit D3-B12 gummy supplement, D3 2000 international unit(s) and B12 500mcg Problem List As Of Date 04/08/2024 Noted Resolved Hypercholesteremia [E78.00] 03/29/2013 Depression [F32.A] 03/29/2013 Chronic bilateral low back pain with left-sided*09/08/2015 Personal history of colonic polyps [Z86.0100] 03/10/2016 BOBBY (obstructive sleep apnea) [G47.33] 03/30/2016 GERD without esophagitis [K21.9] 06/19/2017 Situational anxiety [F41.8] 06/19/2017 Obesity, Class I, BMI 30-34.9 [E66.811] 06/19/2017 Other specified anxiety disorders [F41.8] 06/20/2018 Vitamin D deficiency [E55.9] 06/20/2018 Fatigue [R53.83] 06/20/2018 Chronic pain of right knee [M25.561, G89.29] 04/13/2020 Pain in right hip [M25.551] 04/13/2020 Primary osteoarthritis of right knee [M17.11] 11/25/2020 Diarrhea [R19.7] 11/25/2020 Subclinical hypothyroidism [E03.8] 11/25/2020 CHRISTOPHER (generalized anxiety disorder) [F41.1] 11/25/2020 Irritable bowel syndrome with diarrhea [K58.0] 03/24/2021 Esophageal dysphagia [R13.19] 03/24/2021 Urinary frequency [R35.0] 03/24/2021 Anxiety with depression [F41.8] 12/15/2022 Chronic insomnia [F51.04] 12/15/2022 Irritable bowel syndrome with constipation [K58*12/15/2022 Nightmares [F51.5] 12/15/2022 Vivid dream [R68.89] 12/15/2022 Major depressive disorder, recurrent episode, m*07/31/2023 RBD (REM behavioral disorder) [G47.52] 12/11/2023 PLMD (periodic limb movement disorder) [G47.61] 03/25/2024 Prescriptions ordered this encounter Disp Refills Start End IBUPROFEN 800 MG TABLET 100 * 1 04/09/2024 Route: ORAL Sig: Take 1 tablet by mouth three times a day as needed for pain or fever (specify temp.). Encounter Status:Closed by RAND VILLEGAS on 04/09/24 [facility] CNOVon 03-25-2024 CNOV Office Visit (FAMPWS ) MCKACEY Ragsdale Delilah ([id number]) 1960 Date Time Provider Department 03/25/24 8:20 AM [facility] your visit today, we recorded the following information about you: Temperature Pulse Respiration Blood pressure 97.6 degrees 76/minute 16/minute 124/80 Weight 90.3 kg Jules Haynes DO 03/25/2024 9:52 AM Signed CC: Kacey Bentley is a 63 year old male who presents to the office for follow up HPI: Long standing issues with BOBBY/CPAP use and chronic insomnia, as well as his cardiac history. 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 Difficulty with focusing, concentrating and feeling very tired. No SI or HI. Has a lot of support from his and family. Is doing his best to manage but is very concerned about his job risk due to these concerns. PAST MEDICAL HISTORY Diagnosis Date Arthritis Colon polyps 03/26/2010 Dr. Salty Rodrigues, by c scope Depression Dyslipidemia Hyperlipemia BOBBY (obstructive sleep apnea) CPAP Personal history of colonic polyps 03/10/2016 tubular adenoma Sleep apnea PAST SURGICAL HISTORY Procedure Laterality Date CARPAL TUNNEL 2012 both wrists COLONOSCOPY 2010 COLONOSCOPY GEN ANES 07/09/2020 Repeat in 5 years EGD 07/10/2020 PAST SURGICAL HISTORY OF Bone tumor age 14 PAST SURGICAL HISTORY OF deviated septum repair PROCEDURE RM-COLONSCOPY W/BX 11/2017 Current Outpatient Medications Medication Sig melatonin 5 mg chew Take 1 tablet by mouth daily at bedtime. finasteride (PROSCAR) 5 mg tablet Take 1 tablet by mouth once daily. clonazePAM (KLONOPIN) 1 mg tablet Take 1 tab QHS. FLUoxetine (PROZAC) 40 mg capsule Take 1 capsule by mouth once daily. rosuvastatin (CRESTOR) 20 mg tablet Take 1 tablet by mouth once daily. dicyclomine (BENTYL) 10 mg capsule Take 1 capsule by mouth before meals and at bedtime. For bowels/irritable bowels omeprazole (PRILOSEC) 20 mg capsule Take 1 capsule by mouth once daily. 30 min before breakfast No current facility-administered medications for this visit. ALLERGIES No Known Allergies Social History Tobacco Use Smoking status: Former Current packs/day: 0.00 Average packs/day: 1.3 packs/day for 35.0 years (43.8 ttl pk-yrs) Types: Cigarettes Start date: 02/20/1970 Quit date: 02/20/2005 Years since quittin.1 Smokeless tobacco: Never Vaping Use Vaping status: Never Used Substance Use Topics Alcohol use: Yes Alcohol/week: 1.3 - 2.6 standard drinks of alcohol Types: 1 - 2 Mixed Drinks per week Comment: 1-2 drinks per day Drug use: Yes Frequency: 7.0 times per week Types: Marijuana Comment: uses daily ROS See HPI PE: BP 124/80 Pulse 76 Temp (Src) 97.6 (Temporal) Resp 16 Wt 199 lb (90.3kg) Gen: AANDOX3, NAD, non-toxic appearing HEENT: PERRLA, EOMs intact b/l, nares without drainage, pharynx without erythema, exudate, lesions, or drainage. Uvula midline. Neck: No LAD, no thyromegaly, no meningismus. CV: RRR, no murmur Lungs: CTA b/l, no wheezing Skin: No rashes, lesions, or wounds on exposed skin. ASSESSMENT/PLAN: 1. 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 Need for job coverage for these concerns. Sleep is being managed by Neurologist 2. Need for influenza vaccination - ICD9: V04.81, ICD10: Z23 - INFLUENZA VACCINE, PRSV FREE, AGE 65+ YR, HIGH DOSE, TRIVALENT (FLUZONE HIGH-DOSE) 3. 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 Need for job coverage for these concerns. Sleep is being managed by Neurologist 4. 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 Need for job coverage for these concerns. Sleep is being managed by Neurologist 5. 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 Need for (more content not included)... Normal [facility] Meseret 03-25-2024 TIMURN Telephone (FAMPWS) KACEY [id number]) 1960 M Date Time Provider Department 03/25/24 JULES HAYNES During your visit today, we recorded the following information about you: Hanh Daley LPN 03/25/2024 3:35 PM Signed Patient has been identified by name and date of : Yes, Provider [place] Date 03/25/24 Time 3:34 Type of form: FMLA Form received via: Fax When form is completed, fax form to fax number provided. Form has been forwarded to: Provider's desk. Provider name: RUBEN Morel Susan LPN 04/16/2024 11:09 AM Signed Fmla signed and faxed back. Allergies As of Date: 03/25/2024 (No Known Allergies) Date Reviewed: 03/25/2024 Reviewed by: Carlos Rizvi LPN - Fully Assessed Prescriptions as of 04/16/2024 - ibuprofen (MOTRIN) 800 mg tablet Take 1 tablet by mouth three times a day as needed for pain or fever (specify temp.). - melatonin 5 mg chew Take 1 tablet by mouth daily at bedtime. - finasteride (PROSCAR) 5 mg tablet Take 1 tablet by mouth once daily. - clonazePAM (KLONOPIN) 1 mg tablet Take 1 tab QHS. - FLUoxetine (PROZAC) 40 mg capsule Take 1 capsule by mouth once daily. - rosuvastatin (CRESTOR) 20 mg tablet Take 1 tablet by mouth once daily. - dicyclomine (BENTYL) 10 mg capsule Take 1 capsule by mouth before meals and at bedtime. For bowels/irritable bowels - omeprazole (PRILOSEC) 20 mg capsule Take 1 capsule by mouth once daily. 30 min before breakfast Meds Comments as of 04/05/2023: 2023: Taking Vit D3-B12 gummy supplement, D3 2000 international unit(s) and B12 500mcg Problem List As Of Date 03/25/2024 Noted Resolved Hypercholesteremia [E78.00] 03/29/2013 Depression [F32.A] 03/29/2013 Chronic bilateral low back pain with left-sided*09/08/2015 Personal history of colonic polyps [Z86.0100] 03/10/2016 BOBBY (obstructive sleep apnea) [G47.33] 03/30/2016 GERD without esophagitis [K21.9] 06/19/2017 Situational anxiety [F41.8] 06/19/2017 Obesity, Class I, BMI 30-34.9 [E66.811] 06/19/2017 Other specified anxiety disorders [F41.8] 06/20/2018 Vitamin D deficiency [E55.9] 06/20/2018 Fatigue [R53.83] 06/20/2018 Chronic pain of right knee [M25.561, G89.29] 04/13/2020 Pain in right hip [M25.551] 04/13/2020 Primary osteoarthritis of right knee [M17.11] 11/25/2020 Diarrhea [R19.7] 11/25/2020 Subclinical hypothyroidism [E03.8] 11/25/2020 CHRISTOPHER (generalized anxiety disorder) [F41.1] 11/25/2020 Irritable bowel syndrome with diarrhea [K58.0] 03/24/2021 Esophageal dysphagia [R13.19] 03/24/2021 Urinary frequency [R35.0] 03/24/2021 Anxiety with depression [F41.8] 12/15/2022 Chronic insomnia [F51.04] 12/15/2022 Irritable bowel syndrome with constipation [K58*12/15/2022 Nightmares [F51.5] 12/15/2022 Vivid dream [R68.89] 12/15/2022 Major depressive disorder, recurrent episode, m*07/31/2023 RBD (REM behavioral disorder) [G47.52] 12/11/2023 PLMD (periodic limb movement disorder) [G47.61] 03/25/2024 Encounter Status:Closed by CARLOS RIZVI LPN on 04/16/24 Normal [facility] BENZO CONFIRM, URINEon 01-07 7-Aminoclonazepam Confirm (U) [Mass/Vol] 481 ng/mL High <40 [facility] Comment on above: Order Comment: Speci men Type: URINE SPECIMENOrdering Facility: [facility] Address: [address] [place] [address] Result Comment: 7-Am blanca-clonazepam is the primary metabolite of clonazepam (Klonopin). Presence of 9-Uehyp-oiuqdjjctz indicates use of clonazepam-containing drugs. Performed By: #### B ENZOCFMU ####[facility]IA [id number] [place] [address] [place] Alpha hydroxyalprazolam Confirm (U) [Mass/Vol] <60 Normal <60 [facility] Comment on above: Order Comment: Speci men Type: URINE SPECIMENOrdering Facility: [facility] Address: [address] [place] [address] Result Comment: Alph a-hydroxyalprazolam is the primary metabolite of alprazolam (Xanax). Presence of alpha-hydroxyalprazolam indicates use of alprazolam-containing drugs. Performed By: #### B ENZOCFMU ####[facility] LABIA [id number] [address] [place] [facility] Alpha hydroxytriazolam Confirm (U) [Mass/Vol] <40 Normal <40 [facility] Comment on above: Order Comment: Speci men Type: URINE SPECIMENOrdering Facility: [facility] Address: [address] [place] [address] Result Comment: Alph a-hydroxytriazolam is the primary metabolite of triazolam (Halcion). Presence of alpha-hydroxytriazolam indicates use of triazolam-containing drugs. Performed By: #### B ENZOCFMU ####[facility] [id number] [place] [address] [place] BENZO CONFIRM, NOTE Normal [facility] Comment on above: Order Comment: Speci men Type: URINE SPECIMENOrdering Facility: [facility] Address: [address] [place] [address] Result Comment: This test is for medical use only. This test was developed, and its performance characteristics determined by the [facility] Department of Pathology and Laboratory Medicine. It has not been cleared or approved by the FDA. The [facility] Department of Pathology and Laboratory Medicine is regulated under CLIA as qualified to perform high-complexity testing. This test is used for clinical purposes. It should not be regarded as investigational or for research. Performed By: #### B ENZOCFMU ####[facility] LABIA [id number] [place] [address] [place] LORazepam Confirm (U) [Mass/Vol] <40 Normal <40 [facility] Comment on above: Order Comment: Speci men Type: URINE SPECIMENOrdering Facility: [facility] Address: [address] [place] [address] Result Comment: Pres ence of lorazepam indicates use of lorazepam-containing drugs. Performed By: #### B ENZOCFMU ####[facility] [id number] [place] [address] [place] Nordiazepam Confirm (U) [Mass/Vol] <40 Normal <40 [facility] Comment on above: Order Comment: Speci men Type: URINE SPECIMENOrdering Facility: [facility] Address: [address] [place] [address] Result Comment: Obie iazepam may arise from nordiazepam-containing drugs or by metabolism of many benzodiazepines including Medazepam (Nobrium), Clorazepate (Tranxene), Halazepam (Paxipam), Prazepam (Centrax), Chlordiazepoxide (Librium), Pinazepam (Domar), and Diazepam (Valium). Nordiazepam is metabolized to oxazepam. Performed By: #### B ENZOCFMU ####[facility] LABIA [id number] [place] [address] [place] Oxazepam [Mass/Vol] <40 Normal <40 [facility] Comment on above: Order Comment: Speci men Type: URINE SPECIMENOrdering Facility: [facility] Address: [address] [place] [address] Result Comment: Oxaz epam may arise from oxazepam-containing drugs or by metabolism from many benzodiazepines including Medazepam (Nobrium), Clorazepate (Tranxene), Halazepam (Paxipam), Prazepam (Centrax), Chlordiazepoxide (Librium), Pinazepam (Domar), and Diazepam (Valium). Performed By: #### B ENZOCFMU ####[facility] [id number] [place] [address] [place] Temazepam Confirm (U) [Mass/Vol] <40 Normal <40 [facility] Comment on above: Order Comment: Speci men Type: URINE SPECIMENOrdering Facility: [facility] Address: [address] [place] [address] Result Comment: Renny zepam may arise from temazepam-containing drugs or by metabolism from many benzodiazepines including Medazepam (Nobrium), Clorazepate (Tranxene), Halazepam (Paxipam), Prazepam (Centrax), Chlordiazepoxide (Librium), Pinazepam (Domar), and Diazepam (Valium). Temazepam is metabolized to oxazepam. Performed By: #### B ENZOCFMU ####[facility] [id number] [place] [address] [place] CNOVon 01-08-2024 CNOV Office Visit (BOUBACART ) KACEY BENTLEY ([id number]) 1960 [place] Date Time Provider Department 01/08/24 10:40 AM JORGE REDDY JR During your visit today, we recorded the following information about you: Pulse Blood pressure Weight 87/minute 123/77 92.4 kg Jorge Reddy Jr., MD 01/08/2024 6:26 PM Signed ESTABLISHED PATIENT VISIT CHIEF COMPLAINT: Follow Up HISTORY OF PRESENT ILLNESS: Kacey Bentley is a 63 year old male, BMI 28.4 kg/m2 with a PMH significant for and per last office visit of 12/11/23: Rbd (rem behavioral disorder) (primary encounter diagnosis) Kacey Bentley is a 63 year old male with RBD, insomnia, PLMD Clonazepam 1 mg dose is effective for his RBD PLAN: Has 01/15/[address] Reddy, must keep that appt Will have him do UTOX then since he has been off the med for a week now Rx for clonazepam 1 mg #30 with 1 RF so he has enough until he sees Dr Reddy Cautioned to avoid etoh with clonazepam Per my last visit with pt on 08/30/23: 1. BOBBY (obstructive sleep apnea) - ICD9: 327.23, ICD10: G47.33 (primary diagnosis) Patient with known positional BOBBY (moderate supine and normal off-supine). While currently treating with positional therapy, attempting to get in with dentistry for oral appliance. Will reach out to dentistry to try and get pt sooner appointment. Besides BOBBY disrupting sleep, untreated BOBBY could also exacerbate parasomnias or RBD type behaviors. Advised pt not to drive or operate heavy machinery if sleepy. 2. PLMD (periodic limb movement disorder) - ICD9: 327.51, ICD10: G47.61 No RLS symptoms but leg kicking can occur during night. Prozac moved to AM. Some decrease in movements since on Klonopin. No ETOH prior to bed. Will increase Klonopin as below. 3. RBD (REM behavioral disorder) - ICD9: 327.42, ICD10: G47.52 History remains suggestive of RBD. Pt with rare cannabis use and while has daily glass of ETOH has moved to earlier in day with meal. Other exacerbating factors including BOBBY are being evaluated and treated and SSRI moved to AM. Still on Elavil with dose recently increased. I was considering having patient stop, but for now, will have patient decrease dose back to 10mg nightly. As symptoms have improved with Klonopin use, will increase dose from 0.5mg to 1.0mg prior to bedtime. SE and ADRs d/w pt. Advised pt of interactions of benzos with ETOH as well as possible effects benzos might have on BOBBY. He expresses understanding. D/w pt means of safe guarding house to avoid injury. Follow up in person with Saul Colmenares CNP in 4 weeks in [place]. At that time will need UDS and urine benzo confirm (annual lab). Would also try to stop Amitriptyline at that time if no contraindications. Patient reportedly having less nightmares. Taking Klonopin 1.0mg - last took last night. Still acting dreams out about once per week. Pt feeling tired in the AM. Still on Elavil even though no influence on symptoms. Still with ETOH use - 1 drink but not nightly - if does still about 2 hours prior to bedtime. 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 Working nights 5PM to 5AM (opposite prior shift). However will then have a week that he has to work 5AM to 5PM. Likely contributing to sleepiness. Moving during the night but no longer kicking during the night. He is again taking Prozac at night. Sleeping on side - states no BOBBY symptoms. No weight changes since sleep study. Pt again declines PAP therapy. Yet to see dentist regarding oral appliance (scheduled for 04/2024). REVIEW OF SYSTEMS GENERAL:No weight loss, malaise or fevers. HEENT:Negative for frequent or significant headaches, No changes in hearing or vision, no nose bleeds or other nasal problems NECK:Negative for lumps, goiter, pain and significant neck swelling RESPIRATORY: Negative for cough, wheezing or shortness of breath. CARDIOVASCULAR: Negative for chest pain, leg swelling or palpitations. GASTROINTESTINAL: Negative for abdominal discomfort, blood in stools or black stools or change in bowel habits GENITOURINARY: No history of dysuria, frequency or incontinence MUSCULOSKELETAL: Negative for joint pain or swelling, back pain or muscle pain. NEUROLOGIC:Negative for focal numbness or weakness, headaches and dizziness or syncope, vision changes, speech/languag changes - EXCEPT that as per HPI above. SKIN:Negative for lesions, rash, and itching. PSYCHIATRIC: Negative for sleep disturbance, mood disorder and recent psychosocial stressors. HEMATOLOGIC/LYMPHATIC/ IMMUNOLOGIC:Negative for prolonged bleeding, bruising easily or swollen nodes. ENDOCRINE: Negative for cold or heat intolerance, polyuria, polydipsia and goiter. The remainder of the ROS was reviewed and is negative. LAB/IMAGING: Those performed since patient's last visit have been reviewed. WBC (k/uL) Date Value 03/29/2023 7.42 RBC (m/uL) Date V (more content not included)... Normal [facility] SPECIMEN VALIDITY, URINEon 1 03-09-2023 CHROMATE,URINE <10 Normal <50 [facility] Comment on above: Order Comment: Speci men Type: URINE SPECIMENOrdering Facility: [facility] Address: [address] [place] [address] Performed By: #### L [id number] ####[facility] LABCLIA [id number] [place] [address] [place] CREATININE,URINE 239.9 mg/dL Normal 20.0-300.[address] [facility] Comment on above: Order Comment: Speci men Type: URINE SPECIMENOrdering Facility: [facility] Address: [address] [place] [address] Performed By: #### L [id number] ####[facility] LABCLIA [id number] [place] [address] [place] NITRITES,URINE 55 mg/L Normal <500 [facility] Comment on above: Order Comment: Speci men Type: URINE SPECIMENOrdering Facility: [facility] Address: [address] [place] [address] Performed By: #### L [id number] ####[facility] LABCLIA [id number] [place] [address] [place] OXIDANTS,URINE 52 mg/L Normal <200 [facility] Comment on above: Order Comment: Speci men Type: URINE SPECIMENOrdering Facility: [facility] Address: [address] [place] [address] Performed By: #### L [id number] ####[facility] LABCLIA [id number] [place] [id number] [place] pH (U) 6.0 [pH] Normal 4.5-8.0 [facility] Comment on above: Order Comment: Speci men Type: URINE SPECIMENOrdering Facility: [facility] Address: [address] [place] [address] Performed By: #### L [id number] ####[facility] LABCLIA [id number] [place] [address] [place] SPEC GRAVITY,UR 1.027 Normal 1.003-1.035 [facility] Comment on above: Order Comment: Speci men Type: URINE SPECIMENOrdering Facility: [facility] Address: [address] [place] [address] Performed By: #### L [id number] ####[facility] LABCLIA [id number] [place] [address] [place] SPECIMEN VALIDITY QUALITY Specimen quality results within acceptable limits Normal [facility] Comment on above: Order Comment: Speci men Type: URINE SPECIMENOrdering Facility: [facility] Address: [address] [place] [address] Performed By: #### L [id number] ####[facility] LABCLIA [id number] [place] [address] [place] TOXICOLOGY SCREEN, ROUTINE U RINEon 01-08-2024 Amphetamines Confirm (U) [Mass/Vol] Negative Negative [facility] Comment on above: Cutoff threshold at 1000 ng/mL. Barbiturates Urine Negative Negative [facility] Comment on above: Cutoff threshold at 200 ng/mL. Benzodiazepines Urine Positive Abnormal Negative [facility] Comment on above: Cutoff threshold at 200 ng/mL. Cannabinoids Screen Ql (U) Positive Abnormal Negative [facility] Comment on above: Cutoff threshold at 50 ng/mL. Cocaine Ql (U) Negative Negative [facility] Comment on above: Cutoff threshold at 300 ng/mL. Ethanol (U) [Mass/Vol] mg/dL NINF - 11 mg/dL [facility] Interpretation and review of laboratory results Abnormal [facility] Opiates Screen Ql (U) Negative Negative [facility] Comment on above: Cutoff threshold at 300 ng/mL. oxyCODONE cutoff Screen (U) [Mass/Vol] Negative Negative [facility] Comment on above: Cutoff threshold at 100 ng/mL. Phencyclidine Ql (U) Negative Negative [facility] Comment on above: Cutoff threshold at 25 ng/mL. Immunoassay screen only. Cross reactivity with other substances can occur with immunoassay screening. Detection of any drug(s) in this urine toxicology panel is presumptive only. These tests are for medical purposes only and should not be used for compliance monitoring, legal, or forensic use. Samples should be within normal physiological conditions (e.g. pH). This assay does not include adulteration/specimen validity testing. In clinical settings, confirmatory testing is at the practitioner's discretion [1]. If clinically indicated, confirmation by high specificity, quantitative methodology, which includes adulteration/specimen validity testing, may be requested on the same specimen through Client Services ([phone]) if contacted within 48 hours of initial testing. [1]Substance Abuse and Mental Health Services Administration (2012). Clinical Drug Testing in Primary Care Technical Assistance Publication Series 32. Department of Health and Human Services, [place], p.10. [facility] Amphetamines Confirm (U) [Mass/Vol] Negative Normal Negative [facility] Comment on above: Order Comment: Speci men Type: URINE SPECIMENOrdering Facility: [facility] Address: [address] [place] [address] Result Comment: Cuto ff threshold at 1000 ng/mL. Performed By: #### U TOX2 ####[facility] LABIA [id number] [place] [address] [place] BARBITURATES, URINE Negative Normal Negative [facility] Comment on above: Order Comment: Speci men Type: URINE SPECIMENOrdering Facility: [facility] Address: [address] [place] [address] Result Comment: Cuto ff threshold at 200 ng/mL. Performed By: #### U TOX2 ####[facility] LABIA [id number] [place] [address] [place] BENZODIAZEPINES, UR Positive Abnormal Negative [facility] Comment on above: Order Comment: Speci men Type: URINE SPECIMENOrdering Facility: [facility] Address: [address] [place] [address] Result Comment: Cuto ff threshold at 200 ng/mL. Performed By: #### U TOX2 ####[facility] LABCLIA [id number] [place] [address] [place] Cannabinoids Screen Ql (U) Positive Abnormal Negative [facility] Comment on above: Order Comment: Speci men Type: URINE SPECIMENOrdering Facility: [facility] Address: [address] [place] [address] Result Comment: Cuto ff threshold at 50 ng/mL. Performed By: #### U TOX2 ####[facility] LABCLIA [id number] [place] [address] [place] Cocaine Ql (U) Negative Normal Negative [facility] Comment on above: Order Comment: Speci men Type: URINE SPECIMENOrdering Facility: [facility] Address: [address] [place] [address] Result Comment: Cuto ff threshold at 300 ng/mL. Performed By: #### U TOX2 ####[facility] LABCLIA [id number] [place] [address] [place] Ethanol (U) [Mass/Vol] <11 Normal <11 [facility] Comment on above: Order Comment: Speci men Type: URINE SPECIMENOrdering Facility: [facility] Address: [address] [place] [address] Performed By: #### U TOX2 ####[facility] LABCLIA [id number] [place] [address] [place] Opiates Screen Ql (U) Negative Normal Negative [facility] Comment on above: Order Comment: Speci men Type: URINE SPECIMENOrdering Facility: [facility] Address: [address] [place] [address] Result Comment: Cuto ff threshold at 300 ng/mL. Performed By: #### U TOX2 ####[facility] LABCLIA [id number] [place] [address] [place] oxyCODONE cutoff Screen (U) [Mass/Vol] Negative Normal Negative [facility] Comment on above: Order Comment: Speci men Type: URINE SPECIMENOrdering Facility: [facility] Address: [address] [place] [address] Result Comment: Cuto ff threshold at 100 ng/mL. Performed By: #### U TOX2 ####[facility] LABCLIA [id number] [address] Phencyclidine Ql (U) Negative Normal Negative [facility] Comment on above: Order Comment: Speci men Type: URINE SPECIMENOrdering Facility: [facility] Address: [address] [place] [address] Result Comment: Cuto ff threshold at 25 ng/mL. Performed By: #### U TOX2 ####[facility] LABCLIA [id number] [address] CNOVon 12-11-2023 CNOV Office Visit (SLEWST ) KACEY BENTLEY ([id number]) 1960 M Date Time Provider Department 12/11/23 1:30 PM SUSHANT COLMENARES During your visit today, we recorded the following information about you: Pulse Respiration Blood pressure Weight 91/minute 16/minute 106/73 90.4 kg Sushant Colmenares APRN.SFDC ARCHITECT 12/11/2023 2:11 PM Signed [facility] Follow up/ Established patient visit Date of last visit : 06/23/23 The following Impression/Plan was copied and pasted from the patient's last [facility] visit on 06/23/23: ASSESSMENT/PLAN: 1. BOBBY (obstructive sleep apnea) - ICD9: 327.23, ICD10: G47.33 (primary diagnosis) 2. RBD (REM behavioral disorder) - ICD9: 327.42, ICD10: G47.52 3. PLMD (periodic limb movement disorder) - ICD9: 327.51, ICD10: G47.61 Patient with complaints of fragmented sleep, daytime sleepiness, acting out dreams... as above. Suspect patient with multiple sleep disorders contributing to symptoms. These include the following: -BOBBY for which patient tried PAP in past but could not tolerate. He looked into [facility], but after discussing with patient today, his preference would be for an oral appliance which I do feel would be an appropriate alternative given positional nature of sleep apnea and pt's preference to not sleep in the supine position. Reviewed prior sleep studies with pt. Again, based on AASM guidelines his AHI would be in the moderate range overall and severe when supine ([facility] guideline results above). Discussed with patient and his : the physiology of OSAS, medical conditions associated with OSAS (DM, HTN, CAD, Depression, Stroke, Headache...) and treatment options (UPPP, Dental appliances, CPAP...). Referral will be made to dentistry and Dr. Perea for appliance. In meantime will use pillows to encourage off-supine sleep. Explained to patient that ETOH use prior to bed could exacerbate BOBBY and advised that if he is to have a drink do so no later than dinner time. Untreated BOBBY may also be resulting in pseudo RBD or or exacerbating his acting out dreams -- although suspect RBD per history provided as below. Advised patient to avoid activities that could harm self or others when tired/sleepy, including driving and/or operating heavy machinery. Encouraged weight loss, and continued compliance with other medications. -RBD with patient acting out dreams during the second half of the night to the point that such actions have resulted in injury. While RSWA did not meet electrodiagnostic criteria for RBD, highly suspect his dx by history. No history of neurodegenerative disorders but pt instructed on relationship between RBD and later development of such disorders. Discussed means of ensuring safety including moving furniture away from the bed. Encouraged pt to move ETOH to an earlier hour if he was to have a drink. Also advised pt to move Prozac (SSRIs) to the AM. D/w pt treatment options but given severity of events in the past (injuries) and that he also has PLMs, will first try to treat with Klonopin 0.25 to 0.5mg QHS. SE and ADRs of Klonopin d/w pt in detail. He will need a UDS and bezon confirmation at 3 month follow up. Note pt does occasionally use minimal cannabis - we have been made aware and explained possible influence of it on meds and conditions. Also note, MRI brain in 2015 did not show intracranial source of symptoms and non focal neuro exam. -PLMD with patient having no RLS symptoms but PLMs on PSG as well as per witnessed history. Possible SSRIs exacerbating and having them move SSRIs to AM rather than PM hours. No history of Fe deficiency. No definite family history of PLMs. At this time will treat with Klonopin as above (treating 2 conditions with 1 med to reduce risk of polypharmacy). Jorge Reddy MD Here for follow up for RBD, needs a short term refill of clonazepam until his scheduled follow up with Dr Reddy. He never did the recommended 4 wk follow up after starting clonazepam in August. Clonazepam 1 mg minimized his movements in bed per his . Hasn't fallen out bed since being on the 1 mg dose. She has been able to sleep with him again. He would remember some dreams but they weren't violent per his (she is on the phone). He ran out of clonazepam about a week ago -- since then he notes recurrent nightmares, wakes in the night, then goes right back into the same dream. He remembers the dreams this week. But no significant increase in his YULISA yet since running out of clonazepam, at least not to the extent of falling out of bed. 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 He gets 7-8 hrs of sleep per night Amitriptyline 10 mg helps with falling asleep PATIENT-ENTERED QUESTIONNAIRE SLEEP SCORES 12/11/2023 Sleep Questions R (more content not included)... Normal [facility] CMKACEY ([id number]) 1960 M Date Time Provider Department 11/27/23 MADHAVI PEREA During your visit today, we recorded the following information about you: DariVon 11/27/2023 3:15 PM Signed LVM for pt to call and schedule also sent mcm Allergies As of Date: 11/27/2023 (No Known Allergies) Date Reviewed: 08/15/2023 Reviewed by: Isadora Brown OD - Fully Assessed Reason for Visit: Appointment [186] Prescriptions as of 11/27/2023 - clonazePAM (KLONOPIN) 1 mg tablet Take 1 tab QHS. - amitriptyline (ELAVIL) 10 mg tablet Take 2 tablets by mouth daily at bedtime. - rosuvastatin (CRESTOR) 20 mg tablet Take 1 tablet by mouth once daily. - FLUoxetine (PROZAC) 40 mg capsule Take 1 capsule by mouth once daily. - finasteride (PROSCAR) 5 mg tablet Take 1 tablet by mouth once daily. - dicyclomine (BENTYL) 10 mg capsule Take 1 capsule by mouth before meals and at bedtime. For bowels/irritable bowels - omeprazole (PRILOSEC) 20 mg capsule Take 1 capsule by mouth once daily. 30 min before breakfast Meds Comments as of 04/05/2023: 2023: Taking Vit D3-B12 gummy supplement, D3 2000 international unit(s) and B12 500mcg Problem List As Of Date 11/27/2023 Noted Resolved Hypercholesteremia [E78.00] 03/29/2013 Depression [F32.A] 03/29/2013 Chronic bilateral low back pain with left-sided*09/08/2015 Personal history of colonic polyps [Z86.0100] 03/10/2016 BOBBY (obstructive sleep apnea) [G47.33] 03/30/2016 GERD without esophagitis [K21.9] 06/19/2017 Situational anxiety [F41.8] 06/19/2017 Obesity, Class I, BMI 30-34.9 [E66.811] 06/19/2017 Other specified anxiety disorders [F41.8] 06/20/2018 Vitamin D deficiency [E55.9] 06/20/2018 Fatigue [R53.83] 06/20/2018 Chronic pain of right knee [M25.561, G89.29] 04/13/2020 Pain in right hip [M25.551] 04/13/2020 Primary osteoarthritis of right knee [M17.11] 11/25/2020 Diarrhea [R19.7] 11/25/2020 Subclinical hypothyroidism [E03.8] 11/25/2020 CHRISTOPHER (generalized anxiety disorder) [F41.1] 11/25/2020 Irritable bowel syndrome with diarrhea [K58.0] 03/24/2021 Esophageal dysphagia [R13.19] 03/24/2021 Urinary frequency [R35.0] 03/24/2021 Anxiety with depression [F41.8] 12/15/2022 Chronic insomnia [F51.04] 12/15/2022 Irritable bowel syndrome with constipation [K58*12/15/2022 Nightmares [F51.5] 12/15/2022 Vivid dream [R68.89] 12/15/2022 Major depressive disorder, recurrent episode, m*07/31/2023 Encounter Status:Closed by VON CONNER on 11/27/23 [facility] 11-01-2023 [facility] Telephone (ELIZABETH) KACEY BENTLEY ([id number]) 1960 M Date Time Provider Department 11/01/23 JORGE REDDY JR During your visit today, we recorded the following information about you: Britney Greco RN 11/01/2023 9:41 AM Signed Received voicemail 10-31-23 at 12:57 PM. Good afternoon my name is Jonathan Bentley. Calling for my Kacey Bentley. Birthday [birth year]. If you could please call me back at [phone]. I would appreciate it. He has started taking the medicine but he is still having some turbulent dreams and I'd like to talk to you about it. Thank you very much and have a good day. Call to patient's . No answer. Left voicemail to return call. Last office visit with Dr. Reddy (virtual) 08-30-23 Assessment and Plan: ASSESSMENT/PLAN: 1. BOBBY (obstructive sleep apnea) - ICD9: 327.23, ICD10: G47.33 (primary diagnosis) Patient with known positional BOBBY (moderate supine and normal off-supine). While currently treating with positional therapy, attempting to get in with dentistry for oral appliance. Will reach out to dentistry to try and get pt sooner appointment. Besides BOBBY disrupting sleep, untreated BOBBY could also exacerbate parasomnias or RBD type behaviors. Advised pt not to drive or operate heavy machinery if sleepy. 2. PLMD (periodic limb movement disorder) - ICD9: 327.51, ICD10: G47.61 No RLS symptoms but leg kicking can occur during night. Prozac moved to AM. Some decrease in movements since on Klonopin. No ETOH prior to bed. Will increase Klonopin as below. 3. RBD (REM behavioral disorder) - ICD9: 327.42, ICD10: G47.52 History remains suggestive of RBD. Pt with rare cannabis use and while has daily glass of ETOH has moved to earlier in day with meal. Other exacerbating factors including BOBBY are being evaluated and treated and SSRI moved to AM. Still on Elavil with dose recently increased. I was considering having patient stop, but for now, will have patient decrease dose back to 10mg nightly. As symptoms have improved with Klonopin use, will increase dose from 0.5mg to 1.0mg prior to bedtime. SE and ADRs d/w pt. Advised pt of interactions of benzos with ETOH as well as possible effects benzos might have on BOBBY. He expresses understanding. D/w pt means of safe guarding house to avoid injury. Follow up in person with Saul Colmenares CNP in 4 weeks in [place]. At that time will need UDS and urine benzo confirm (annual lab). Would also try to stop Amitriptyline at that time if no contraindications. Britney Greco, RN 11/01/2023 11:04 AM Signed Received call from patient's . She reports that everything has blown up at his work He is working 12 hour shifts, 7 days a week. He currently works 5A-5P. 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 She reports he may stay on nights though because they just fired someone and he is covering those shifts. Virtual appointments have been missed. During the time he ran out of Kiddify, he had episodes of falling out of bed and extreme dreams. He has been back on the Kiddify as of 10-25-23. He is jumping out of bed, not knowing where he is. Going [facility] around the bedroom and is falling near the window which wakes up and startles her. When he wasn't on the Kiddify, she has heard him downstairs on the floor. He wakes up and doesn't know what he is doing but he does snap out of it and remember the episodes. He just can't recall the dreams he is acting out. She reports he was a big drinker, and has cut down to just a drink a night of hard liquor ( cancino it down though). Has a follow up appointment scheduled for 01-15-[address] Reddy. Spoke to Dr. Reddy who recommended for in person appointment with soonest available IVIS. Isabell Maya 11/01/2023 1:43 PM Signed Called Spouse-no answer. Left voicemail requesting she call the [facility] to schedule in-office visit with any sleep IVIS. Isabell Aponte 11/03/2023 11:34 AM Signed Called and spoke with Patient's , Jonathan. Patient is scheduled for 12/11/2023 with Jose Colmenares CNP and added to wait list. Jonathan states that she will take Jose Ramon to the Emergency Room if he has another severe episode in the meantime. Isabell Maya Allergies As of Date: 11/01/2023 (No Known Allergies) Date Reviewed: 08/15/2023 Reviewed by: Isadora Brown OD - Fully Assessed Reason for Visit: Patient Update [1234] Prescriptions as of 11/03/2023 - clonazePAM (KLONOPIN) 1 mg tablet Take 1 tab QHS. - amitriptyline (ELAVIL) 10 mg tablet Take 2 tablets by mouth daily at bedtime. - rosuvastatin (CRESTOR) 20 mg tablet Take 1 tablet by mouth once daily. - FLUoxetine (PROZAC) 40 mg capsule Take 1 capsule by mouth once daily. - finasteride (PROSCAR) 5 mg tablet Take 1 tablet by mouth once daily. - dicyclomine (BENTYL) 10 mg capsule Take 1 capsule (more content not included)... Normal [facility] 10-25-2023 [facility] Telephone (SATYA) KACEY BENTLEY ([id number]) 1960 Date Time Provider Department 10/25/23 JORGE REDDY JR During your visit today, we recorded the following information about you: Haylee Rubin 10/25/2023 10:30 AM Signed Prescription Refill Information The patient has been identified by name and date of : Yes Caregiver verified no other encounters exist for this prescription request: Yes Caregiver confirmed with patient/requestor that no other refills are due, in the near future, with this provider at this time: Yes The last office visit in the department: 08-30-2023 Does the patient have a future office visit with this provider/department: Yes clonazePAM (KLONOPIN) 1 mg tablet () Patient is currently out. Haylee Rubin October 25, 2023 10:29 AM Jorge Reddy Jr., MD 10/25/2023 12:56 PM Signed PDMP website checked and validated. All prescriptions have been APPROPRIATELY filled. No suspicious activity was identified. 10/25/2023 by Jorge Reddy MD Allergies As of Date: 10/25/2023 (No Known Allergies) Date Reviewed: 08/15/2023 Reviewed by: Isadora Bronw OD - Fully Assessed Visit Diagnoses:PLMD (periodic limb movement disorder) [G47.61] RBD (REM behavioral disorder) [G47.52] Order(s):clonazePAM (KLONOPIN) 1 mg tabletTake 1 tab QHS.Disp: 30 tabletRfl: 0 Prescriptions as of 10/25/2023 - clonazePAM (KLONOPIN) 1 mg tablet Take 1 tab QHS. - amitriptyline (ELAVIL) 10 mg tablet Take 2 tablets by mouth daily at bedtime. - rosuvastatin (CRESTOR) 20 mg tablet Take 1 tablet by mouth once daily. - FLUoxetine (PROZAC) 40 mg capsule Take 1 capsule by mouth once daily. - finasteride (PROSCAR) 5 mg tablet Take 1 tablet by mouth once daily. - dicyclomine (BENTYL) 10 mg capsule Take 1 capsule by mouth before meals and at bedtime. For bowels/irritable bowels - omeprazole (PRILOSEC) 20 mg capsule Take 1 capsule by mouth once daily. 30 min before breakfast Meds Comments as of 04/05/2023: 2023: Taking Vit D3-B12 gummy supplement, D3 2000 international unit(s) and B12 500mcg Problem List As Of Date 10/25/2023 Noted Resolved Hypercholesteremia [E78.00] 03/29/2013 Depression [F32.A] 03/29/2013 Chronic bilateral low back pain with left-sided*09/08/2015 Personal history of colonic polyps [Z86.010] 03/10/2016 BOBBY (obstructive sleep apnea) [G47.33] 03/30/2016 GERD without esophagitis [K21.9] 06/19/2017 Situational anxiety [F41.8] 06/19/2017 Obesity, Class I, BMI 30-34.9 [E66.9] 06/19/2017 Other specified anxiety disorders [F41.8] 06/20/2018 Vitamin D deficiency [E55.9] 06/20/2018 Fatigue [R53.83] 06/20/2018 Chronic pain of right knee [M25.561, G89.29] 04/13/2020 Pain in right hip [M25.551] 04/13/2020 Primary osteoarthritis of right knee [M17.11] 11/25/2020 Diarrhea [R19.7] 11/25/2020 Subclinical hypothyroidism [E03.8] 11/25/2020 CHRISTOPHER (generalized anxiety disorder) [F41.1] 11/25/2020 Irritable bowel syndrome with diarrhea [K58.0] 03/24/2021 Esophageal dysphagia [R13.19] 03/24/2021 Urinary frequency [R35.0] 03/24/2021 Anxiety with depression [F41.8] 12/15/2022 Chronic insomnia [F51.04] 12/15/2022 Irritable bowel syndrome with constipation [K58*12/15/2022 Nightmares [F51.5] 12/15/2022 Vivid dream [R68.89] 12/15/2022 Major depressive disorder, recurrent episode, m*07/31/2023 Prescriptions ordered this encounter Disp Refills Start End CLONAZEPAM 1 MG TABLET 30 t* 0 10/25/2023 11/25/2023 Sig: Take 1 tab QHS. Medications Discontinued During This Encounter Prescriptions - clonazePAM (KLONOPIN) 1 mg tablet (Discontinued) Take 1 tab QHS. Encounter Status:Closed by JORGE REDDY on 10/25/23 [facility] CNOVon 09-19-2023 CNOV Office Visit (PSWSTR ) KACEY BENTLEY ([id number]) 1960 M Date Time Provider Department 09/19/23 1:00 PM DANISHA CUMMINS PSWSTR During your visit today, we recorded the following information about you: Danisha Cummins, SABINE.SFDC ARCHITECT 09/19/2023 1:20 PM Signed Patient did not come in for his scheduled follow up visit with the provider today. Danisha Cummins APRN.SFDC ARCHITECT 09/19/2023 1:20 PM Signed Dear Kacey, It has come to my attention you missed your appointment on September 19, 2023 without calling to cancel. Our first concern is your health. If your behavioral health concern prompting your appointment is still present, please reschedule soon so that you may receive the appropriate care by calling the appointment number listed above. It is important that you notify our office if you are unable to make an appointment. That time can then be used for other patients. If our information is incorrect, please call so we can correct our records. Since you may be new to our office, I want to alert you to our cancellation policy. Because there are many patients waiting for appointments, we may bill patients $75 when they fail to come to their appointments without giving us adequate notice (i.e., within 24-hours). For example, if you are scheduled for 10:00am on a , you must cancel by 10:00am Monday. Because insurance companies do not cover such fees, patients are billed directly. According to our protocol, if a patient fails to show up for appointments, without calling to cancel, four (4) times within a rolling year period, he/she will be asked to seek care from a provider outside the Department of Psychiatry and Psychology at the [facility]. A rolling year begins with the date of your first No Show incident and goes forward for a 12 month period. This is the 1st time in twelve (12) months that without calling to cancel, you have failed to keep your appointment. It is your responsibility to keep appointments and to alert us in a timely manner when you are unable to do so. Again, if any of this information is incorrect, I apologize in advance. Please call the [facility] Office at [phone] if you have questions about this protocol or question the data on file. If there has been an error, your file will be corrected accordingly. Sincerely, Danisha Cummins APRN, TIMUR Allergies As of Date: 09/19/2023 (No Known Allergies) Date Reviewed: 08/15/2023 Reviewed by: Isadora Brown OD - Fully Assessed Reason for Visit: No Show [1558] Primary Visit Diagnosis:NO SHOW Prescriptions as of 09/19/2023 - clonazePAM (KLONOPIN) 1 mg tablet Take 1 tab QHS. - amitriptyline (ELAVIL) 10 mg tablet Take 2 tablets by mouth daily at bedtime. - rosuvastatin (CRESTOR) 20 mg tablet Take 1 tablet by mouth once daily. - FLUoxetine (PROZAC) 40 mg capsule Take 1 capsule by mouth once daily. - finasteride (PROSCAR) 5 mg tablet Take 1 tablet by mouth once daily. - dicyclomine (BENTYL) 10 mg capsule Take 1 capsule by mouth before meals and at bedtime. For bowels/irritable bowels - omeprazole (PRILOSEC) 20 mg capsule Take 1 capsule by mouth once daily. 30 min before breakfast Meds Comments as of 04/05/2023: 2023: Taking Vit D3-B12 gummy supplement, D3 2000 international unit(s) and B12 500mcg Problem List As Of Date 09/19/2023 Noted Resolved Hypercholesteremia [E78.00] 03/29/2013 Depression [F32.A] 03/29/2013 Chronic bilateral low back pain with left-sided*09/08/2015 Personal history of colonic polyps [Z86.010] 03/10/2016 BOBBY (obstructive sleep apnea) [G47.33] 03/30/2016 GERD without esophagitis [K21.9] 06/19/2017 Situational anxiety [F41.8] 06/19/2017 Obesity, Class I, BMI 30-34.9 [E66.9] 06/19/2017 Other specified anxiety disorders [F41.8] 06/20/2018 Vitamin D deficiency [E55.9] 06/20/2018 Fatigue [R53.83] 06/20/2018 Chronic pain of right knee [M25.561, G89.29] 04/13/2020 Pain in right hip [M25.551] 04/13/2020 Primary osteoarthritis of right knee [M17.11] 11/25/2020 Diarrhea [R19.7] 11/25/2020 Subclinical hypothyroidism [E03.8] 11/25/2020 CHRISTOPHER (generalized anxiety disorder) [F41.1] 11/25/2020 Irritable bowel syndrome with diarrhea [K58.0] 03/24/2021 Esophageal dysphagia [R13.19] 03/24/2021 Urinary frequency [R35.0] 03/24/2021 Anxiety with depression [F41.8] 12/15/2022 Chronic insomnia [F51.04] 12/15/2022 Irritable bowel syndrome with constipation [K58*12/15/2022 Nightmares [F51.5] 12/15/2022 Vivid dream [R68.89] 12/15/2022 Major depressive disorder, recurrent episode, m*07/31/2023 Other instructions from your clinician: Dear Kacey, It has come to my attention you missed your appointment on September 19, 2023 without calling to cancel. Our first concern is your health. If your behavioral health concern prompting your appointment is still present, please reschedule soon so that you (more content not included)... [facility] (SLEWST) KACEY BENTLEY ([id number]) 1960 M Date Time Provider Department 08/30/23 JORGE REDDY JR During your visit today, we recorded the following information about you: Haylee Jara LPN 08/30/2023 8:57 AM Signed Jorge Reddy Jr., MD P [facility] Maureen Nurse Follow up with Saul Colmenares CNP in [place] in person in 4 weeks or as soon as possible. Eveline Chavez OCCA 08/30/2023 9:38 AM Signed TC to patient to schedule follow up below. No answer, left VM to return call. Please schedule on 09/21 with Jose Colmenares. ENRIQUE Funk Gillian, OCCA 09/07/2023 11:20 AM Signed Additional TC no answer, left VM. Appointment below has been filled, will need to find another appointment time. ENRIQUE Funk Gillian, OCCA 09/08/2023 2:22 PM Signed Multiple attempts to reach patient without success. Letter mailed to patients home address notifying of need to contact office for appointment. Eveline Strait, OCCA Allergies As of Date: 08/30/2023 (No Known Allergies) Date Reviewed: 08/15/2023 Reviewed by: Isadora Brown OD - Fully Assessed Reason for Visit: Appointment [186] Prescriptions as of 09/08/2023 - clonazePAM (KLONOPIN) 1 mg tablet Take 1 tab QHS. - amitriptyline (ELAVIL) 10 mg tablet Take 2 tablets by mouth daily at bedtime. - rosuvastatin (CRESTOR) 20 mg tablet Take 1 tablet by mouth once daily. - FLUoxetine (PROZAC) 40 mg capsule Take 1 capsule by mouth once daily. - finasteride (PROSCAR) 5 mg tablet Take 1 tablet by mouth once daily. - dicyclomine (BENTYL) 10 mg capsule Take 1 capsule by mouth before meals and at bedtime. For bowels/irritable bowels - omeprazole (PRILOSEC) 20 mg capsule Take 1 capsule by mouth once daily. 30 min before breakfast Meds Comments as of 04/05/2023: 2023: Taking Vit D3-B12 gummy supplement, D3 2000 international unit(s) and B12 500mcg Problem List As Of Date 08/30/2023 Noted Resolved Hypercholesteremia [E78.00] 03/29/2013 Depression [F32.A] 03/29/2013 Chronic bilateral low back pain with left-sided*09/08/2015 Personal history of colonic polyps [Z86.010] 03/10/2016 BOBBY (obstructive sleep apnea) [G47.33] 03/30/2016 GERD without esophagitis [K21.9] 06/19/2017 Situational anxiety [F41.8] 06/19/2017 Obesity, Class I, BMI 30-34.9 [E66.9] 06/19/2017 Other specified anxiety disorders [F41.8] 06/20/2018 Vitamin D deficiency [E55.9] 06/20/2018 Fatigue [R53.83] 06/20/2018 Chronic pain of right knee [M25.561, G89.29] 04/13/2020 Pain in right hip [M25.551] 04/13/2020 Primary osteoarthritis of right knee [M17.11] 11/25/2020 Diarrhea [R19.7] 11/25/2020 Subclinical hypothyroidism [E03.8] 11/25/2020 CHRISTOPHER (generalized anxiety disorder) [F41.1] 11/25/2020 Irritable bowel syndrome with diarrhea [K58.0] 03/24/2021 Esophageal dysphagia [R13.19] 03/24/2021 Urinary frequency [R35.0] 03/24/2021 Anxiety with depression [F41.8] 12/15/2022 Chronic insomnia [F51.04] 12/15/2022 Irritable bowel syndrome with constipation [K58*12/15/2022 Nightmares [F51.5] 12/15/2022 Vivid dream [R68.89] 12/15/2022 Major depressive disorder, recurrent episode, m*07/31/2023 Letter Text Encounter Status:Closed by EVELINE CHAVEZ on 09/08/23 Normal [facility] ALT/SGPTon 05-22-2023 ALT [Catalytic activity/Vol] 7 U/L Low 10 - 54 U/L [facility] Cholesterol in LDL Direct as say [Mass/Vol]on 05-22-2023 Cholesterol in LDL [Mass/Vol] 100 mg/dL High <100 mg/dL [facility] LIPOPROTEIN (A)on 05-22-2023 Lipoprotein a [Mass/Vol] 13 mg/dL <30 mg/dL [facility] Basic metabolic 2000 panelon 03-30-2023 Anion gap [Moles/Vol] 7 mmol/L Low 9 - 18 mmol/L [facility] Calcium [Mass/Vol] 9.4 mg/dL 8.5 - 10. 2 mg/dL [facility] Chloride [Moles/Vol] 104 mmol/L 97 - 10 5 mmol/L [facility] CO2 [Moles/Vol] 28 mmol/L 22 - 30 mmol/L [facility] Creatinine [Mass/Vol] 1.07 mg/dL 0.73 - 1.22 mg/dL [facility] Estimated Glomerular Filtration Rate 77 mL/min/1.73m >=60 mL/min/1.73m [facility] Glucose [Mass/Vol] 80 mg/dL 74 - 99 mg/dL [facility] Potassium [Moles/Vol] 4.8 mmol/L 3.7 - 5.1 mmol/L [facility] Sodium [Moles/Vol] 139 mmol/L 136 - 144 mmol/L [facility] Urea nitrogen [Mass/Vol] 11 mg/dL 9 - 24 mg/d L [facility] T3 FREE BLDon 03-30-2023 Free T3 [Mass/Vol] 2.6 pg/mL 2.3 - 4.1 pg/mL [facility] T4 FREE/FREE THYROXon 2023 Free T4 [Mass/Vol] 0.9 ng/dL 0.9 - 1.7 ng/dL [facility] TSH BLDon 03-30-2023 TSH Qn 2.230 m[IU]/L 0.270 - 4.200 mIU/L [facility] VITAMIN B12 BLOODon 03-30-19 Cobalamin (Vitamin B12) [Mass/Vol] 544 pg/mL 232 - 1,245 pg/mL [facility] CBC W Auto Differential pane l (Bld)on 03-29-2023 Basophils (Bld) [#/Vol] 0.04 10*3/uL <0.11 k/uL [facility] Basophils/100 WBC (Bld) 0.5 % [facility] Differential cell count method Nom (Bld) Auto [facility] Eosinophils (Bld) [#/Vol] 0.23 10*3/uL <0.46 k/uL [facility] Eosinophils/100 WBC (Bld) 3.1 % [facility] Erythrocyte distribution width (RBC) [Ratio] 11.9 % 11.5 - 15.0 % [facility] Hematocrit (Bld) [Volume fraction] 42.5 % 39.0 - 51.0 % [facility] Hemoglobin (Bld) [Mass/Vol] 14.3 g/dL 13.0 - 17.0 g/dL [facility] Immature granulocytes (Bld) [#/Vol] <0.10 k/uL [facility] Immature granulocytes/100 WBC (Bld) 0.1 % [facility] Lymphocytes (Bld) [#/Vol] 2.05 10*3/uL 1.00 - 4.00 k/uL [facility] Lymphocytes/100 WBC (Bld) 27.6 % [facility] MCH (RBC) [Entitic mass] 31.6 pg 26. 0 - 34.0 pg [facility] MCHC (RBC) [Mass/Vol] 33.6 g/dL 30.5 - 36.0 g/dL [facility] MCV (RBC) [Entitic vol] 94.0 fL 80.0 - 100.0 fL [facility] Monocytes (Bld) [#/Vol] 0.77 10*3/uL <0.87 k/uL [facility] Monocytes/100 WBC (Bld) 10.4 % [facility] Neutrophils (Bld) [#/Vol] 4.32 10*3/uL 1.45 - 7.50 k/uL [facility] Neutrophils/100 WBC (Bld) 58.3 % [facility] Nucleated RBC (Bld) [#/Vol] <0.01 k/uL [facility] Nucleated RBC/100 WBC (Bld) [Ratio] 0.0 /100 WBC [facility] Platelet mean volume (Bld) [Entitic vol] 10.2 fL 9.0 - 12.7 fL [facility] Platelets (Bld) [#/Vol] 179 10*3/uL 150 - 400 k/uL [facility] RBC (Bld) [#/Vol] 4.52 10*6/uL 4.20 - 6.0 0 m/uL [facility] WBC (Bld) [#/Vol] 7.42 10*3/uL 3.70 - 11. 00 k/uL [facility] Absolute lymphocyte countOrd ered By: Brett Marcus on 09-17-2022 Lymphocytes Auto (Unsp spec) [#/Vol] 2.24 10*3/uL 0.83-4.51 [facility] Alcohol, Blood (Medical)-Ser umon 09-17-2022 SERUM ETOH 127.0 mg/dL Normal [facility] Comment on above: Result Comment: The serum:whole blood ethanol ratio is approximately 1.14 and varies slightly with hematocrit. Medical Alcohol reference interval and critical value in non-tolerant individuals; 50 - 100 Impairment 100 Intoxication 100 - 250 Severe Poisoning 250 - 400 Deep/possible fatal coma Performed By: #### L 500.2500, L100.0100, [id number] #### [facility] [address] [place], [address] Basic Metabolic Profile (BMP )on 09-17-2022 BUN/CRE 12.9 RATIO Normal 10-20 [facility] Comment on above: Performed By: #### L 500.2500, L100.0100, [id number] #### [facility] [address] [place], [address] CA,Total 8.9 mg/dL Normal 8.5-10.1 [facility] Comment on above: Performed By: #### L 500.2500, L100.0100, [id number] #### [facility] [address] [place], [address] Chloride [Moles/Vol] 107 mmol/L Normal 98-107 [facility] Comment on above: Performed By: #### L 500.2500, L100.0100, [id number] #### [facility] [address] [place], [address] CO2 [Moles/Vol] 28.0 mmol/L Normal 21.0-32.0 [facility] Comment on above: Performed By: #### L 500.2500, L100.0100, [id number] #### [facility] [address] [place], [address] Creatinine [Mass/Vol] 1.16 mg/dL Normal 0.70-1.30 [facility] Comment on above: Result Comment: The validity of the calculated GFR GFRAA in patients over 70 years has not been determined. Clinical correlation is essential. Performed By: #### L 500.2500, L100.0100, [id number] #### [facility] [address] [place], [address] ECRCL 68.52 ml/min Normal [facility] Comment on above: Performed By: #### L 500.2500, L100.0100, [id number] #### [facility] [address] [place], [address] EST GFR - AA 81 mL/min Normal >60 [facility] Comment on above: Result Comment: Afri can Peruvian GFR Calc Performed By: #### L 500.2500, L100.0100, [id number] #### [facility] [address] [place], [address] GAP 6 Normal 5-15 [facility] Comment on above: Performed By: #### L 500.2500, L100.0100, [id number] #### [facility] [address] [place], [address] GFR/1.73 sq M.predicted among non-blacks MDRD (S/P/Bld) [Vol rate/Area] 67 mL/min/{1.73_m2} Normal >60 [facility] Comment on above: Result Comment: Non- GFR Calc Performed By: #### L 500.2500, L100.0100, [id number] #### [facility] [address] [place], [address] Glucose [Mass/Vol] 97 mg/dL Normal 74-[address] [facility] Comment on above: Performed By: #### L 500.2500, L100.0100, L501.9100 #### [facility] [address] [place], [address] Potassium [Moles/Vol] 4.0 mmol/L Normal 3.5-5.1 [facility] Comment on above: Performed By: #### L 500.2500, L100.0100, L501.9100 #### [facility] [address] [place], [address] Sodium [Moles/Vol] 141 mmol/L Normal 136-[address] [facility] Comment on above: Performed By: #### L 500.2500, L100.0100, L501.9100 #### [facility] [address] [place], [address] Urea nitrogen [Mass/Vol] 15 mg/dL Normal 7-18 [facility] Comment on above: Performed By: #### L 500.2500, L100.0100, L501.9100 #### [facility] [place], [address] Basophil percentageOrdered B y: Brett Marcus on 09-17-2022 Basophils/100 WBC (Bld) 0.5 % 0-1 [facility] Chloride [Moles/Vol] 107 mmol/L 98-107 [facility] Eosinophils/100 WBC (Bld) 3.0 % 0-5 [facility] Glucose [Mass/Vol] 97 mg/dL 74-[address] [facility] Neutrophils (Bld) [#/Vol] 3.6 10*3/uL 2.0-7.7 [facility] Neutrophils/100 WBC (Bld) 54.5 % 47-70 [facility] Potassium [Moles/Vol] 4.0 mmol/L 3.5-5.1 [facility] Sodium [Moles/Vol] 141 mmol/L 136-[address] [facility] WBC (Bld) [#/Vol] 6.6 10*3/uL 4.4-11.[address] [facility] Blood erythrocytes count (nu mber/volume)Ordered By: Brett Marcus on 09-17-2022 RBC (Bld) [#/Vol] 4.49 10*6/uL 4.6-6.2 [facility] Blood hemoglobin measurement (mass/volume)Ordered By: Brett Marcus on 09-17-2022 Hemoglobin (Bld) [Mass/Vol] 14.3 g/dL 13.0-16.5 [facility] Blood lymphocytes/100 leukoc ytesOrdered By: Brett Marcus on 09-17-2022 Lymphocytes/100 WBC (Bld) 33.7 % 19-41 [facility] Blood monocytes/100 leukocyt esOrdered By: Brett Marcus on 09-17-2022 Monocytes/100 WBC (Bld) 8.0 % 0-10 [facility] Blood platelet mean volumeOr dered By: Brett Marcus on 09-17-2022 Platelet mean volume (Bld) [Entitic vol] 10.1 fL 6.2-12.0 [facility] Brain/Head without Contrasto n 09-17-2022 Brain/Head without Contrast [facility] Imaging [place] [address] Brain/Head without Contrast MR#: [id number] Acct: [id number] Name: KACEY BENTLEY Rep #: [id number] : 1960 M 62 From: Anish Hargrove MD PCP: Dr. Jules Haynes DO Status: REG ER Study: Brain/Head without Contrast Date of Exam: 08/21 11/12 Exam# [id number] Ordering Dr: Brett Marcus MD INDICATION: trauma, altered LOC EXAMINATION: CT BRAIN - CT Head or Brain W/O Contrast Injection TECHNIQUE: Serial CT axial images were obtained of the head without intravenous contrast. A radiation dose optimization technique was used for this scan. COMPARISON: None. Findings: Serial CT axial images of the head without contrast. BRAIN PARENCHYMA: Diffuse periventricular hypoattenuation likely chronic white matter ischemic changes. Mild diffuse volume loss. No evidence of intraparenchymal hemorrhage or hyperattenuating extra-axial fluid collection. VASCULAR STRUCTURES: Atherosclerotic vascular calcifications. BONES: Left maxillary sinus mucosal thickening. Bilateral angulated displaced nasal bone fractures. SCALP/REMAINING SOFT TISSUES: Nasal subcutaneous gas consistent with laceration. ASPECTS Score for Acute Strokes, if applicable: 10 CT/Brain/Head without Contrast IMPRESSION: Nasal fractures. Age-related changes as above, without evidence of acute intracranial hemorrhage in this noncontrast head CT. Electronically Signed: Anish Hargrove MD at 3:32 EDT , CC: Dr. Brett Marcus MD; Dr. Jules Haynes DO Sign Shop Supervisor: Signed Normal [facility] CBC W/Diff, Automatedon 08-21 Absolute Lymph 2.24 X10 3/uL Normal 0.83-4.51 [facility] Comment on above: Performed By: #### L 500.2500, L100.0100, L501.9100 #### [facility] [address] [place], [address] Absolute Neut 3.6 X10 3/uL Normal 2.0-7.7 [facility] Comment on above: Performed By: #### L 500.2500, L100.0100, L501.9100 #### [facility] [address] [place], [address] Basophils/100 WBC (Bld) 0.5 % Normal 0-1 [facility] Comment on above: Performed By: #### L 500.2500, L100.0100, L501.9100 #### [facility] [address] [place], [address] Eosinophils/100 WBC (Bld) 3.0 % Normal 0-5 [facility] Comment on above: Performed By: #### L 500.2500, L100.0100, L501.9100 #### [facility] [address] [place], [address] Erythrocyte distribution width (RBC) [Ratio] 11.8 % Normal 11.6-14.6 [facility] Comment on above: Performed By: #### L 500.2500, L100.0100, L501.9100 #### [facility] [address] [place], [address] Hematocrit (Bld) [Volume fraction] 42.4 % Normal 40-54 [facility] Comment on above: Performed By: #### L 500.2500, L100.0100, L501.9100 #### [facility] [address] [place], [address] Hemoglobin (Bld) [Mass/Vol] 14.3 g/dL Normal 13.0-16.5 [facility] Comment on above: Performed By: #### L 500.2500, L100.0100, L501.9100 #### [facility] [address] [place], [address] IG% 0.300 Normal 0.0-0.9 [facility] Comment on above: Result Comment: IG% - Immature Granulocytes (promyelocytes, myelocytes and metamyelocytes) > 1% indicates that a LEFT SHIFT is Present. Performed By: #### L 500.2500, L100.0100, L501.9100 #### [facility] [address] [place], [address] Lymphocytes/100 WBC (Bld) 33.7 % Normal 19-41 [facility] Comment on above: Performed By: #### L 500.2500, L100.0100, L501.9100 #### [facility] [address] [place], [address] MCH (RBC) [Entitic mass] 31.8 pg Normal 27.0-32.0 [facility] Comment on above: Performed By: #### L 500.2500, L100.0100, L501.9100 #### [facility] [address] [place], [address] MCHC (RBC) [Mass/Vol] 33.7 g/dL Normal 32-36 [facility] Comment on above: Performed By: #### L 500.2500, L100.0100, L501.9100 #### [facility] [address] [place], [address] MCV (RBC) [Entitic vol] 94.4 fL High 80-94 [facility] Comment on above: Performed By: #### L 500.2500, L100.0100, L501.9100 #### [facility] [address] [place], [address] Monocytes/100 WBC (Bld) 8.0 % Normal 0-10 [facility] Comment on above: Performed By: #### L 500.2500, L100.0100, L501.9100 #### [facility] [address] [place], [address] Neutrophils/100 WBC (Bld) 54.5 % Normal 47-70 [facility] Comment on above: Performed By: #### L 500.2500, L100.0100, L501.9100 #### [facility] [address] [place], [address] Nucleated RBC (Bld) [#/Vol] 0 10*3/uL Normal 0-5 [facility] Comment on above: Performed By: #### L 500.2500, L100.0100, L501.9100 #### [facility] [address] [place], [address] Platelet mean volume (Bld) [Entitic vol] 10.1 fL Normal 6.2-12.0 [facility] Comment on above: Performed By: #### L 500.2500, L100.0100, L501.9100 #### [facility] [address] [place], [address] Platelets (Bld) [#/Vol] 166 10*3/uL Normal 150-450 [facility] Comment on above: Performed By: #### L 500.2500, L100.0100, L501.9100 #### [facility] [address] [place], [address] RBC (Bld) [#/Vol] 4.49 10*6/uL Low 4.6-6.2 [facility] Comment on above: Performed By: #### L 500.2500, L100.0100, L501.9100 #### [facility] [address] [place], [address] RDW SD 40.8 fl Normal 35.1-43.9 [facility] Comment on above: Performed By: #### L 500.2500, L100.0100, L501.9100 #### [facility] [address] [place], [address] WBC (Bld) [#/Vol] 6.6 10*3/uL Normal 4.4-11.[address] [facility] Comment on above: Performed By: #### L 500.2500, L100.0100, L501.9100 #### [facility] [address] [place], [address] Determination of erythrocyte mean corpuscular volume (MCV)Ordered By: Brett Marcus on 09-17-2022 MCV (RBC) [Entitic vol] 94.4 fL 80-94 [facility] Emergency Department Summary on 09-17-2022 Emergency Department Summary [facility] Medical Records Department [address] [facility] [place] [address] Emergency Department Summary 09/17/22 MR#: [id number] Acct: [id number] Name: KACEY BENTLEY Rep #: [id number] : 1960 62 From: Brett Marcus MD PCP: Dr. Jules Haynes, DO Status:REG ER Location: ED HPI History of Present Illness Chief Complaint: Dizziness Informant: patient and spouse/S.O. Narrative Narrative: Patient drank a lot of straight whiskey tonight along with some different marijuana than usual, he got up around 1 AM to use the restroom, he seemed disoriented, he fell several times on the way to the bathroom and on the way back, injuring his nose in his back. Patient states he does not remember any of this, his brought him, he now is back to baseline mental status. States his nose hurts, he denies any vision changes, denies any shortness of breath. Pain is in his upper back more to the right. [facility] Medical History BPH (benign prostatic hyperplasia) CPAP (continuous positive airway pressure) dependence Factor 5 Leiden mutation, heterozygous GERD (gastroesophageal reflux disease) Sleep apnea Home Medications amitriptyline 10 mg tablet 10 mg PO DAILY 09/17/22 [History Last Taken Unknown] cyclobenzaprine 10 mg tablet 10 mg PO TID PRN Muscle Spasm #15 TABLETS 09/17/22 [Rx Last Taken Unknown] finasteride 5 mg tablet 5 mg PO DAILY 09/17/22 [History Last Taken Unknown] fluoxetine 10 mg capsule 10 mg PO DAILY 09/17/22 [History Last Taken Unknown] omeprazole 20 mg capsule,delayed release 20 mg PO DAILY 09/17/22 [History Last Taken Unknown] rosuvastatin 10 mg tablet 10 mg PO DAILY 09/17/22 [History Last Taken Unknown] tramadol 50 mg tablet 50 mg PO Q6H PRN pain 2 days #6 tabs 09/17/22 [Rx Last Taken Unknown] Allergy/AdvReac Type Severity Reaction Status Date / Time No Known Allergies Allergy Verified 09/17/22 01:25 Family History Father Heart disease Hypertension Mother COPD (chronic obstructive pulmonary disease) Surgical History H/O excision of mass Social History household members: spouse Smoking Status: Former smoker alcohol intake: current details: drinks 5-6 shots of whisky a day substance use type: marijuana ROS ROS ED Constitutional Constitutional ED: Denies chills or fever(s) Eyes Eyes: Denies change in vision or diplopia ENT ENT ED: Reports nasal trauma and other Details: Nasal pain ; Denies rhinorrhea or sore throat Cardiovascular Cardiovascular: Denies chest pain or palpitations Respiratory/Chest Respiratory/Chest: Denies cough or dyspnea Gastrointestinal Gastrointestinal: Denies abdominal pain, diarrhea, nausea or vomiting Genitourinary Genitourinary ED: Denies dysuria or hematuria Musculoskeletal Musculoskeletal: Reports back pain; Denies neck pain Integumentary Reports Abrasions; Denies abscess or rash Neurologic Neurologic: Reports headache(s) and other Details: Transient confusion/amnesia ; Denies paresthesias or weakness Psychiatric Psychiatric: Denies anxiety or suicidal thoughts EXAM Physical Exam Const Vital Signs: 09/17/22 01:28 09/17/22 01:31 Temperature 97.8 F Temperature Source Temporal Pulse Rate 70 Respiratory Rate 18 Respiratory Effort Normal Respiratory Pattern Normal Blood Pressure 96/56 L Blood Pressure Mean 69 Pulse Ox 98 Oxygen Delivery Method Room Air Positive well nourished and well developed General Appearance ED: well developed and NAD HEENT Reports TM's clear and moist mucous membranes HEENT Narrative: Trauma/minor tenderness to the nose but nowhere else on the face. Midface stable. No dental injury or loosening/subluxation. No trismus. No malocclusion. There are 2 skin injuries to the nose, one 0.5 cm full-thickness laceration and 1 Y-shaped linear superficial laceration off to the right. No significant swelling or asymmetry. normocephalic Face and Sinus: Negative for facial tenderness Tympanic Membrane ED: Yes TM's clear Eyes PERRL and EOMs intact bilaterally Visual Acuity: other Other Details: no entrapment or pain with extraocular movements Neck full ROM and supple General: Negative for tenderness Chest Wall inspection of chest normal and palpation of chest normal Chest: symmetrical chest wall rise; Negative for crepitus or tenderness Resp normal respiratory effort and clear to auscultation bilaterally Percussion: other equal BS bilat Cardio regular rate, regular rhythm and no murmurs Rate: regular rate Rhythm: regular rhythm GI non-tender and non-distended Auscultation: normoactive bowel s (more content not included)... Normal [facility] Hematocrit Auto (Bld) [Volum e fraction]Ordered By: Brett Marcus on 09-17-2022 Hematocrit (Bld) [Volume fraction] 42.4 % 40-54 [facility] - Chemistry and C hemistry - challengeOrdered By: Brett Marcus on 09-17-2022 CO2 [Moles/Vol] 28.0 mmol/L 21.0-32.0 [facility] Urea nitrogen/Creatinine [Mass ratio] 12.9 mg/mg 10-20 [facility] - Hematology and Cell countsOrdered By: Brett Marcus on 09-17-2022 Erythrocyte distribution width (RBC) [Entitic vol] 40.8 fL 35.1-43.9 [facility] Erythrocyte distribution width (RBC) [Ratio] 11.8 % 11.6-14.6 [facility] Immature granulocytes/100 WBC (Bld) 0.300 % 0.0-0.9 [facility] Comment on above: IG% - Immature Granu locytes (promyelocytes, myelocytes and metamyelocytes) > 1% indicates that a LEFT SHIFT is Present. MCH (RBC) [Entitic mass] 31.8 pg 27.0-32.0 [facility] Nucleated RBC/100 WBC (Bld) [Ratio] 0 % 0-5 [facility] MCHC Auto (RBC) [Mass/Vol]Or dered By: Brett Marcus on 09-17-2022 MCHC (RBC) [Mass/Vol] 33.7 g/dL 32-36 [facility] No Panel InformationOrdered By: Brett Marcus on 09-17-2022 Estimated Creatinine Clearance Calc 68.52 ml/min [facility] Estimated GFR (MDRD) Amer 81 mL/min >60 [facility] Comment on above: GFR Calc Estimated GFR (MDRD) Non-Af Amer 67 mL/min >60 [facility] Comment on above: Non- GFR Calc Ethyl Alcohol Level 127.0 mg/dL [facility] Comment on above: The serum:whole bloo d ethanol ratio is approximately 1.14and varies slightly with hematocrit. Medical Alcohol reference interval and critical value innon-tolerant individuals; 50 - 100 Impairment 100 Intoxication 100 - 250 Severe Poisoning 250 - 400 Deep/possible fatal coma Platelets bldOrdered By: Jose Marcus on 09-17-2022 Platelets (Bld) [#/Vol] 166 10*3/uL 150-450 [facility] Serum or plasma calcium manuel urement (mass/volume)Ordered By: Brett Marcus on 09-17-2022 Calcium [Mass/Vol] 8.9 mg/dL 8.5-10.[address] [facility] Serum or plasma creatinine m easurement (mass/volume)Ordered By: Brett Marcus on 09-17-2022 Creatinine [Mass/Vol] 1.16 mg/dL 0.70-1.30 [facility] Comment on above: The validity of the calculated GFR & GFRAA in patients over 70 years has not been determined. Clinical correlation is essential. Serum or plasma urea nitroge n measurement (mass/volume)Ordered By: Brett Marcus on 09-17-2022 Urea nitrogen [Mass/Vol] 15 mg/dL 18 [facility] Thin prep Papanicolaou smear with manual screeningOrdered By: Brett Marcus on 09-17-2022 Thin prep Papanicolaou smear with manual screening 6 -15 [facility] Abdomen/Pelvis without Conto n 09-05-2022 Abdomen/Pelvis without Cont [facility] Imaging Services [address] [place] [address] Abdomen/Pelvis without Cont MR#: [id number] Acct: [id number] Name: KACEY BENTLEY Rep #: [id number] : 1960 M 62 From: Babak Stanton PCP: Dr. Jules Haynes, DO Status: REG ER Study: Abdomen/Pelvis without Cont Date of Exam: 08/20 09/11 Exam# [id number] Ordering Dr: Zulay Sanz MD INDICATION: abd pain EXAMINATION: CT ABDOMEN AND PELVIS WITHOUT CONTRAST - CT Abdomen And Pelvis W/O Contrast Injection TECHNIQUE: Helically acquired images were obtained of the abdomen and pelvis without oral or IV contrast. A radiation dose optimization technique was used for this scan. IV Contrast dosage and agent: None. Oral contrast: None. RADIATION DOSAGE (If Supplied By Facility): CTDIvol = ( 8.04 ) mGy, DLP = ( 415.96 ) mGycm COMPARISON: Axial CT imaging of the abdomen and pelvis pre- and post-IV contrast 01/15/2010 FINDINGS: LOWER CHEST: Lung bases are clear. No cardiomegaly or pericardial effusion. LIVER: Homogeneous. No focal mass. Portal vein diameter 1.5 cm GALLBLADDER AND BILIARY TREE: No calcified gallstones. No gallbladder distension or wall edema. No intra- or extrahepatic biliary ductal dilation. PANCREAS: No focal cystic or solid mass. Incidental note of a 2 mm calcification along the anterior mid body of the pancreas SPLEEN: Normal size without focal cystic or solid mass. 1 cm accessory spleen is noted anterior to the mid pole. ADRENAL GLANDS: No nodules. KIDNEYS AND URETERS: Normal renal size and position. No renal calculi are demonstrated. No hydronephrosis. RETROPERITONEUM: Moderate atherosclerotic calcific plaquing of the abdominal aorta from the renal arteries through the iliac bifurcations. There is 2.66 x 2.68 cm fusiform ectasia of the infrarenal aorta. No demonstrated adenopathy. BOWEL: No evidence of acute appendicitis. No stomach or bowel distension. No focal inflammatory change. No ascites. LYMPH NODES: No enlarged mesenteric or retroperitoneal lymph nodes. URINARY BLADDER: Unremarkable. The prostate gland is unremarkable. ABDOMINAL WALL: No discrete abdominal or pelvic wall hernia. BONES: There are multilevel degenerative changes of the thoracolumbar spine and a slight upper lumbar levoscoliosis. Prominent but wide-base Schmorl''s nodes are seen involving the superior and inferior L1 vertebral endplates. Degenerative arthrosis also noted at the pubic symphysis, and there are mild degenerative changes of both left sacroiliac joint and the right hip. Benign-appearing cortical irregularity at the posterior margin of the lateral left iliac wing is unchanged. No lytic or blastic abnormality. CT/Abdomen/Pelvis without Cont IMPRESSION: 1. No abnormality seen to account for the patient''s complaint of abdominal pain. 2. Moderate aortoiliac atherosclerotic calcific plaquing with 2.67 cm fusiform ectasia of the infrarenal aorta. 3. Stable, benign-appearing cortical irregularity at the posterolateral margin of left iliac wing, possibly the sequelae of old healed injury. 4. Multilevel degenerative changes of the thoracolumbar spine as well as mild degenerative changes the left sacroiliac joint and right hip. Electronically Signed: Yifan Hwang MD at 14:01 EDT Reading Location ID and State: [id number] / Unknown , Service support , CC: Dr. Zulay Sanz MD; Dr. Jules Haynes DO Sign Shop Supervisor: Signed Normal [facility] Absolute lymphocyte countOrd ered By: Zulay Sanz on 09-05-2022 Lymphocytes Auto (Unsp spec) [#/Vol] 1.92 10*3/uL 0.83-4.51 [facility] Basic Metabolic Profile (BMP )on 09-05-2022 BUN/CRE 16.7 RATIO Normal 10-20 [facility] Comment on above: Performed By: #### L 500.2500, L100.0100 #### [facility] [address] [place], [address] CA,Total 9.1 mg/dL Normal 8.5-10.1 [facility] Comment on above: Performed By: #### L 500.2500, L100.0100 #### [facility] [address] [place], [address] Chloride [Moles/Vol] 108 mmol/L High 98-107 [facility] Comment on above: Performed By: #### L 500.2500, L100.0100 #### [facility] [address] [place], [address] CO2 [Moles/Vol] 28.0 mmol/L Normal 21.0-32.0 [facility] Comment on above: Performed By: #### L 500.2500, L100.0100 #### [facility] [address] [place], [address] Creatinine [Mass/Vol] 1.08 mg/dL Normal 0.70-1.30 [facility] Comment on above: Result Comment: The validity of the calculated GFR GFRAA in patients over 70 years has not been determined. Clinical correlation is essential. Performed By: #### L 500.2500, L100.0100 #### [facility] [address] [place], [address] ECRCL 73.60 ml/min Normal [facility] Comment on above: Performed By: #### L 500.2500, L100.0100 #### [facility] [address] [place], [address] EST GFR - AA 88 mL/min Normal >60 [facility] Comment on above: Result Comment: Afri can Peruvian GFR Calc Performed By: #### L 500.2500, L100.0100 #### [facility] [address] [place], [address] GAP 4 Low 5-15 [facility] Comment on above: Performed By: #### L 500.2500, L100.0100 #### [facility] [address] [place], [address] GFR/1.73 sq M.predicted among non-blacks MDRD (S/P/Bld) [Vol rate/Area] 73 mL/min/{1.73_m2} Normal >60 [facility] Comment on above: Result Comment: Non- GFR Calc Performed By: #### L 500.2500, L100.0100 #### [facility] [address] [place], [address] Glucose [Mass/Vol] 92 mg/dL Normal 74-[address] [facility] Comment on above: Performed By: #### L 500.2500, L100.0100 #### [facility] [address] [place], [address] Potassium [Moles/Vol] 3.3 mmol/L Low 3.5-5.1 [facility] Comment on above: Performed By: #### L 500.2500, L100.0100 #### [facility] [address] [place], [address] Sodium [Moles/Vol] 140 mmol/L Normal 136-[address] [facility] Comment on above: Performed By: #### L 500.2500, L100.0100 #### [facility] [address] [place], [address] Urea nitrogen [Mass/Vol] 18 mg/dL Normal 7-18 [facility] Comment on above: Performed By: #### L 500.2500, L100.0100 #### [facility] [place], [address] Basophil percentageOrdered B y: Zulay Sanz on 09-05-2022 Basophil percentage 0-5 SEEN /hpf 0-5 [facility] Basophils/100 WBC (Bld) 0.6 % 0-1 [facility] Chloride [Moles/Vol] 108 mmol/L 98-107 [facility] Eosinophils/100 WBC (Bld) 1.4 % 0-5 [facility] Glucose [Mass/Vol] 92 mg/dL 74-[address] [facility] Neutrophils (Bld) [#/Vol] 3.8 10*3/uL 2.0-7.7 [facility] Neutrophils/100 WBC (Bld) 58.8 % 47-70 [facility] Potassium [Moles/Vol] 3.3 mmol/L 3.5-5.1 [facility] Sodium [Moles/Vol] 140 mmol/L 136-[address] [facility] WBC (Bld) [#/Vol] 6.5 10*3/uL 4.4-11.[address] [facility] Bilirubin Test strip Ql (U)O rdered By: Zulay Sanz on 09-05-2022 Bilirubin Ql (U) Negative Negative [facility] Blood erythrocytes count (nu mber/volume)Ordered By: Zulay Sanz on 09-05-2022 RBC (Bld) [#/Vol] 4.72 10*6/uL 4.6-6.2 [facility] Blood hemoglobin measurement (mass/volume)Ordered By: Zulay Sanz on 09-05-2022 Hemoglobin (Bld) [Mass/Vol] 15.0 g/dL 13.0-16.5 [facility] Blood lymphocytes/100 leukoc ytesOrdered By: Zulay Sanz on 09-05-2022 Lymphocytes/100 WBC (Bld) 29.6 % 19-41 [facility] Blood monocytes/100 leukocyt esOrdered By: Zulay Sanz on 09-05-2022 Monocytes/100 WBC (Bld) 9.4 % 0-10 [facility] Blood platelet mean volumeOr dered By: Zulay Sanz on 09-05-2022 Platelet mean volume (Bld) [Entitic vol] 10.1 fL 6.2-12.0 [facility] CBC W/Diff, Automatedon - Absolute Lymph 1.92 X10 3/uL Normal 0.83-4.51 [facility] Comment on above: Performed By: #### L 500.2500, L100.0100 #### [facility] [address] [place], [address] Absolute Neut 3.8 X10 3/uL Normal 2.0-7.7 [facility] Comment on above: Performed By: #### L 500.2500, L100.0100 #### [facility] [address] [place], [address] Basophils/100 WBC (Bld) 0.6 % Normal 0-1 [facility] Comment on above: Performed By: #### L 500.2500, L100.0100 #### [facility] [address] [place], [address] Eosinophils/100 WBC (Bld) 1.4 % Normal 0-5 [facility] Comment on above: Performed By: #### L 500.2500, L100.0100 #### [facility] [address] [place], [address] Erythrocyte distribution width (RBC) [Ratio] 11.8 % Normal 11.6-14.6 [facility] Comment on above: Performed By: #### L 500.2500, L100.0100 #### [facility] [address] [place], [address] Hematocrit (Bld) [Volume fraction] 44.6 % Normal 40-54 [facility] Comment on above: Performed By: #### L 500.2500, L100.0100 #### [facility] [address] [place], [address] Hemoglobin (Bld) [Mass/Vol] 15.0 g/dL Normal 13.0-16.5 [facility] Comment on above: Performed By: #### L 500.2500, L100.0100 #### [facility] [address] [place], [address] IG% 0.200 Normal 0.0-0.9 [facility] Comment on above: Result Comment: IG% - Immature Granulocytes (promyelocytes, myelocytes and metamyelocytes) > 1% indicates that a LEFT SHIFT is Present. Performed By: #### L 500.2500, L100.0100 #### [facility] [address] [place], [address] Lymphocytes/100 WBC (Bld) 29.6 % Normal 19-41 [facility] Comment on above: Performed By: #### L 500.2500, L100.0100 #### [facility] [address] [place], [address] MCH (RBC) [Entitic mass] 31.8 pg Normal 27.0-32.0 [facility] Comment on above: Performed By: #### L 500.2500, L100.0100 #### [facility] [address] [place], [address] MCHC (RBC) [Mass/Vol] 33.6 g/dL Normal 32-36 [facility] Comment on above: Performed By: #### L 500.2500, L100.0100 #### [facility] [address] [place], [address] MCV (RBC) [Entitic vol] 94.5 fL High 80-94 [facility] Comment on above: Performed By: #### L 500.2500, L100.0100 #### [facility] [address] [place], [address] Monocytes/100 WBC (Bld) 9.4 % Normal 0-10 [facility] Comment on above: Performed By: #### L 500.2500, L100.0100 #### [facility] [address] [place], [address] Neutrophils/100 WBC (Bld) 58.8 % Normal 47-70 [facility] Comment on above: Performed By: #### L 500.2500, L100.0100 #### [facility] [address] [place], [address] Nucleated RBC (Bld) [#/Vol] 0 10*3/uL Normal 0-5 [facility] Comment on above: Performed By: #### L 500.2500, L100.0100 #### [facility] [address] [place], [address] Platelet mean volume (Bld) [Entitic vol] 10.1 fL Normal 6.2-12.0 [facility] Comment on above: Performed By: #### L 500.2500, L100.0100 #### [facility] [address] [place], [address] Platelets (Bld) [#/Vol] 157 10*3/uL Normal 150-450 [facility] Comment on above: Performed By: #### L 500.2500, L100.0100 #### [facility] [address] [place], [address] RBC (Bld) [#/Vol] 4.72 10*6/uL Normal 4.6-6.2 [facility] Comment on above: Performed By: #### L 500.2500, L100.0100 #### [facility] [address] [place], [address] RDW SD 40.8 fl Normal 35.1-43.9 [facility] Comment on above: Performed By: #### L 500.2500, L100.0100 #### [facility] [address] [place], [address] WBC (Bld) [#/Vol] 6.5 10*3/uL Normal 4.4-11.[address] [facility] Comment on above: Performed By: #### L 500.2500, L100.0100 #### [facility] [address] [place], [address] COVID 19 AG RAPID (DHAVAL Barboza)on 09-05-2022 SARS-CoV-2 (COVID-19) RNA ALMAS+probe Ql (Unsp spec) *Negative results from patients with symptom onset beyond five days should be treated as presumptive and confirmed by a molecular assay if clinically necessary. Negative results should not be used as the sole basis for treatment or for patient management. SARS-CoV-2 Ag Resp Ql IA.rapid *Positive results do not differentiate between SARS-CoV and SARS-CoV-2. If differentiation of the specific SARS virus is desired an additional sample and an additional order is required. SARS-CoV-2 Ag Resp Ql IA.rapid * This test has not been FDA cleared or approved; the test has been authorized by FDA under an Emergency Use Authorization (EAU) for use by laboratories certified under CLIA that meet the requirements to perform moderate, high, or waived complexity tests. SARS-CoV-2 Ag Resp Ql IA.rapid Normal Reference Range: Negative SARS-CoV-2 (COVID 19) Negative RAPID METHOD [employer] COVID19 Ag Card Normal [facility] Comment on above: Performed By: #### L 500.4050, L100.0100 #### [facility] [address] [place], [address] Determination of erythrocyte mean corpuscular volume (MCV)Ordered By: Zulay Sanz on 09-05-2022 MCV (RBC) [Entitic vol] 94.5 fL 80-94 [facility] Emergency Department Summary on 09-05-2022 Emergency Department Summary [facility] Medical Records Department [address] [place] [address] Emergency Department Summary 09/05/22 MR#: [id number] Acct: [id number] Name: MCKACEY ENRIQUEZON Rep #: [id number] : 1960 62 From: Zulay Sanz MD PCP: Dr. Jules Haynes, DO Status:DEP ER Location: ED HPI History of Present Illness Chief Complaint: Abd Pain Informant: patient Onset/Context/Timing Onset: Today Context: Sudden Onset Timing: Intermittent Current Severity: Moderate Maximum Severity: Severe Narrative Narrative: Patient presents with rather abrupt onset of suprapubic abdominal pain. He states he got abrupt onset of pain accompanied with hot flashes. It seems to be intermittent. Pain does not radiate into his legs. He denies dysuria, but states he does urinate frequently secondary to an enlarged prostate. He denies history of kidney stone. He has not had fever or chills. PFSH PFS Medical History (Updated 09/05/22 @ 15:[address] Zulay Sanz MD) BPH (benign prostatic hyperplasia) CPAP (continuous positive airway pressure) dependence Factor 5 Leiden mutation, heterozygous GERD (gastroesophageal reflux disease) Sleep apnea Home Medications cefdinir 300 mg capsule 300 mg PO Q12H #10 caps 09/27/21 [Rx Last Taken Unknown] Allergy/AdvReac Type Severity Reaction Status Date / Time No Known Allergies Allergy Verified 09/05/22 12:38 Family History Father Heart disease Hypertension Mother COPD (chronic obstructive pulmonary disease) Surgical History H/O excision of mass Social History household members: spouse Smoking Status: Former smoker alcohol intake: current details: drinks 5-6 shots of whisky a day substance use type: marijuana ROS ROS ED Constitutional Constitutional ED: Denies chills or fever(s) Eyes Eyes: Denies change in vision or discharge from eye(s) ENT ENT ED: Denies discharge from eye(s), rhinorrhea or sore throat Cardiovascular Cardiovascular: Denies chest pain or palpitations Respiratory/Chest Respiratory/Chest: Denies cough or dyspnea Gastrointestinal Gastrointestinal: Reports abdominal pain; Denies diarrhea, nausea or vomiting Genitourinary Genitourinary ED: Denies difficulty urinating or dysuria Musculoskeletal Musculoskeletal: Denies back pain or extremity pain Integumentary Denies Abrasions or rash Neurologic Neurologic: Denies headache(s) or weakness Psychiatric Psychiatric: Denies anxiety or depression Allergic/Immunologic Allergic/Immunologic ED: Denies lip swelling or urticaria EXAM Physical Exam Const Vital Signs: 09/05/22 12:37 09/05/22 13:49 Temperature 97.8 F Temperature Source Temporal Pulse Rate 60 53 L Respiratory Rate 18 12 Blood Pressure 178/94 H 169/86 H Blood Pressure Mean 122 113 Pulse Ox 100 100 Oxygen Delivery Method Room Air Room Air Positive well nourished and well developed General Appearance ED: well developed HEENT Reports moist mucous membranes Eyes PERRL and EOMs intact bilaterally Neck no lymphadenopathy Chest Wall inspection of chest normal and palpation of chest normal Resp normal respiratory effort and clear to auscultation bilaterally Cardio regular rate and regular rhythm GI GI Narrative: Abdomen soft with mild tenderness in the suprapubic region. I do not palpate a significantly distended bladder. Extremity normal to inspection Neuro oriented x3 and no sensory deficits noted Motor Exam: strength 5/5 throughout Psych Mood Affect: anxious Skin no rashes or lesions noted MDM MDM MDM Narrative Medical decision making narrative: Patient was ordered morphine and Toradol for pain which she declined. He did accept Zofran and IV fluids. Labwork obtained to evaluate for leukocytosis, anemia, and electrolyte derangement. Urinalysis obtained to evaluate for infection/hematuria. CT scan of flank obtained to evaluate for possible kidney stone. Lab Data Attestation: I reviewed the patient's lab results. Labs: Laboratory Results - last 24 hr 09/05/22 09/05/22 13:05 13:45 WBC 6.5 RBC 4.72 Hgb 15.0 Hct 44.6 MCV 94.5 H MCH 31.8 MCHC 33.6 RDW Std Deviation 40.8 RDW Coeff of [place] 11.8 Plt Count 157 MPV 10.1 Immature Gran % (Auto) 0.200 Neut % (Auto) 58.8 Lymph % (Auto) 29.6 [place] % (Auto) 9.4 Eos % (Auto) 1.4 Baso % (Auto) 0.6 Absolute Neuts (auto) 3.8 Absolute Lymphs (auto) 1.92 Nucleated RBC % 0 Sodium 140 Potassium 3.3 L Chloride 108 H Carbon Dioxide 28.0 Anion Gap 4 L BUN 18 Creatinine 1.08 Estim Creat Clear Calc 73.60 Est GF (more content not included)... Normal [facility] Hematocrit Auto (Bld) [Volum e fraction]Ordered By: Zulay Sanz on 09-05-2022 Hematocrit (Bld) [Volume fraction] 44.6 % 40-54 [facility] Ketones Test strip Ql (U)Ord ered By: Zulay Sanz on 09-05-2022 Ketones Ql (U) Negative Negative [facility] - Chemistry and C hemistry - challengeOrdered By: Zulay Sanz on 09-05-2022 CO2 [Moles/Vol] 28.0 mmol/L 21.0-32.0 [facility] Urea nitrogen/Creatinine [Mass ratio] 16.7 mg/mg 10-20 [facility] - Hematology and Cell countsOrdered By: Zulay Sanz on 09-05-2022 Erythrocyte distribution width (RBC) [Entitic vol] 40.8 fL 35.1-43.9 [facility] Erythrocyte distribution width (RBC) [Ratio] 11.8 % 11.6-14.6 [facility] Immature granulocytes/100 WBC (Bld) 0.200 % 0.0-0.9 [facility] Comment on above: IG% - Immature Granu locytes (promyelocytes, myelocytes and metamyelocytes) > 1% indicates that a LEFT SHIFT is Present. MCH (RBC) [Entitic mass] 31.8 pg 27.0-32.0 [facility] Nucleated RBC/100 WBC (Bld) [Ratio] 0 % 0-5 [facility] MCHC Auto (RBC) [Mass/Vol]Or dered By: Zulay Sanz on 09-05-2022 MCHC (RBC) [Mass/Vol] 33.6 g/dL 32-36 [facility] Mucus LM Ql (Urine sed)Order ed By: Zulay Sanz on 09-05-2022 Mucus Ql (Urine sed) 0 SEEN /hpf [facility] Nitrite Test strip Ql (U)Ord ered By: Zulay Sanz on 09-05-2022 Nitrite Ql (U) Negative Negative [facility] No Panel InformationOrdered By: Zulay Sanz on 09-05-2022 Estimated Creatinine Clearance Calc 73.60 ml/min [facility] Estimated GFR (MDRD) Amer 88 mL/min >60 [facility] Comment on above: GFR Calc Estimated GFR (MDRD) Non-Af Amer 73 mL/min >60 [facility] Comment on above: Non- GFR Calc Platelets bldOrdered By: Trina Sanz on 09-05-2022 Platelets (Bld) [#/Vol] 157 10*3/uL 150-450 [facility] Protein Test strip Ql (U)Ord ered By: Zulay Sanz on 09-05-2022 Protein Ql (U) 15 mg/dl Negative [facility] RESPIRATORY PANEL MOLECULARo n 09-05-2022 RP PANEL ADENOVIRUS Not Detected INFLUENZA A Not Detected INFLUENZA A (SUBTYPE H1) Not Detected INFLUENZA A (SUBTYPE H3) Not Detected INFLUENZA B Not Detected HUMAN METAPHNEUMO Not Detected PARAINFLUENZA 1 Not Detected PARAINFLUENZA 2 Not Detected PARAINFLUENZA 3 Not Detected PARAINFLUENZA 4 Not Detected RHINOVIRUS Not Detected RSV A Not Detected RSV B Not Detected Normal [facility] Comment on above: Performed By: #### L 500.4050, L100.0100 #### [facility] [address] [place] [address], [address] Respiratory pathogens detect ion panel by molecular detection methodOrdered By: Zulay Sanz on 09-05-2022 Respiratory pathogens DNA and RNA panel ALMAS+probe (Resp) [facility] Serum or plasma calcium manuel urement (mass/volume)Ordered By: Zulay Sanz on 09-05-2022 Calcium [Mass/Vol] 9.1 mg/dL 8.5-10.[address] [facility] Serum or plasma creatinine m easurement (mass/volume)Ordered By: Zulay Sanz on 09-05-2022 Creatinine [Mass/Vol] 1.08 mg/dL 0.70-1.30 [facility] Comment on above: The validity of the calculated GFR & GFRAA in patients over 70 years has not been determined. Clinical correlation is essential. Serum or plasma urea nitroge n measurement (mass/volume)Ordered By: Zulay Sanz on 09-05-2022 Urea nitrogen [Mass/Vol] 18 mg/dL 7-18 [facility] Squamous epithelial cells de tection in urine sediment by light microscopyOrdered By: Zulay Sanz on 09-05-2022 Epithelial cells.squamous LM Ql (Urine sed) 0-5 SEEN /hpf 0-5 [facility] Thin prep Papanicolaou smear with manual screeningOrdered By: Zulay Sanz on 09-05-2022 Thin prep Papanicolaou smear with manual screening 4 5-15 [facility] Urinalysis, Completeon 09-05 EPI,SQUAMOUS 0-5 SEEN Normal 0-5 [facility] Comment on above: Order Comment: CLEAN CATCH Performed By: #### L 400.0001 #### [facility] [address] [place], [address] RBC 0-5 SEEN Normal 0-5 [facility] Comment on above: Order Comment: CLEAN CATCH Performed By: #### L 400.0001 #### [facility] [address] [place], [address] WBC 0-5 SEEN Normal 0-5 [facility] Comment on above: Order Comment: CLEAN CATCH Performed By: #### L 400.0001 #### [facility] [address] [place], [address] BACTERIA 0 SEEN Normal None Seen [facility] Comment on above: Order Comment: CLEAN CATCH Performed By: #### L 400.0001 #### [facility] [address] [place], [address] Mucus Ql (Urine sed) 0 SEEN Normal [facility] Comment on above: Order Comment: CLEAN CATCH Performed By: #### L 400.0001 #### [facility] [address] [place], [address] Urine blood detectionOrdered By: Zulay Sanz on 09-05-2022 RBC Ql (U) 10 /ul Negative [facility] RBC Ql (U) 0-5 SEEN /hpf 0-5 [facility] Urine clarityOrdered By: Trina Sanz on 09-05-2022 Clarity (U) Clear Clear [facility] Urine color determinationOrd ered By: Zulay Sanz on 09-05-2022 Color (U) Yellow Yellow [facility] Urine glucose detectionOrder ed By: Zulay Sanz on 09-05-2022 Glucose Ql (U) Normal mg/dl Normal [facility] Urine leukocyte esterase det ection by dipstickOrdered By: Zulay Sanz on 09-05-2022 Leukocyte esterase Test strip Ql (U) 25 /ul Negative [facility] Urine pHOrdered By: Zulay Sanz on 09-05-2022 pH (U) 7.0 [pH] 5.0 - 8.0 [facility] Urine sediment bacteria coun t by microscopy (number/high power field)Ordered By: Zulay Sanz on 09-05-2022 Bacteria LM.HPF (Urine sed) [#/Area] 0 /[HPF] None Seen [facility] Urine specific gravity measu rementOrdered By: Zulay Sanz on 09-05-2022 Specific gravity (U) [Rel density] 1.010 1.002-1.030 [facility] Urobilinogen Auto test strip Ql (U)Ordered By: Zulay Sanz on 09-05-2022 Urobilinogen Ql (U) Normal mg/dl Normal [facility] EGD - THERAPEUTIC, EUS, OR T UBE INTERVENTIONSon 12-28-2021 [facility] US THYROID/PARATHYROIDon [facility] Absolute lymphocyte counton 09-27-2021 Lymphocytes Auto (Unsp spec) [#/Vol] 1.82 10*3/uL 0.83-4.51 [facility] Work Phone: Basic Metabolic Profile (BMP )on 09-27-2021 BUN/CRE 19.3 RATIO Normal 10-20 [facility] Comment on above: Performed By: #### L 100.0100, L500.2500 ####[facility] [address] [place], [place], [address] CA,Total 8.5 mg/dL Normal 8.5-10.1 [facility] Comment on above: Performed By: #### L 100.0100, L500.2500 ####[facility] [address] [place], [address] Chloride [Moles/Vol] 105 mmol/L Normal 98-107 [facility] Comment on above: Performed By: #### L 100.0100, L500.2500 ####[facility] [address] [place], [address] CO2 [Moles/Vol] 29.0 mmol/L Normal 21.0-32.0 [facility] Comment on above: Performed By: #### L 100.0100, L500.2500 ####[facility] [address] [place], [address] Creatinine [Mass/Vol] 0.93 mg/dL Normal 0.70-1.30 [facility] Comment on above: Result Comment: The validity of the calculated GFR GFRAA in patients over 70 years has not been determined. Clinical correlation is essential. Performed By: #### L 100.0100, L500.2500 ####[facility] [address] [place], [address] ECRCL 86.59 ml/min Normal [facility] Comment on above: Performed By: #### L 100.0100, L500.2500 ####[facility] [address] [place], [address] EST GFR - AA 105 mL/min Normal >60 [facility] Comment on above: Result Comment: Afri can Peruvian GFR Calc Performed By: #### L 100.0100, L500.2500 ####[facility] [address] [place], [address] GAP 4 Low 5-15 [facility] Comment on above: Performed By: #### L 100.0100, L500.2500 ####[facility] [address] [place], [address] GFR/1.73 sq M.predicted among non-blacks MDRD (S/P/Bld) [Vol rate/Area] 87 mL/min/{1.73_m2} Normal >60 [facility] Comment on above: Result Comment: Non- GFR Calc Performed By: #### L 100.0100, L500.2500 ####[facility] [address] [place], [address] Glucose [Mass/Vol] 106 mg/dL Normal 74-[address] [facility] Comment on above: Result Comment: Fast ing Glucose result from 100 to 125 mg/dL suggests IMPAIRED HOMEOSTASIS per A.D.A. criteria. Performed By: #### L 100.0100, L500.2500 ####[facility] [address] [place], [address] Potassium [Moles/Vol] 4.0 mmol/L Normal 3.5-5.1 [facility] Comment on above: Performed By: #### L 100.0100, L500.2500 ####[facility] [address] [place], [address] Sodium [Moles/Vol] 138 mmol/L Normal 136-[address] [facility] Comment on above: Performed By: #### L 100.0100, L500.2500 ####[facility] [address] [place], [address] Urea nitrogen [Mass/Vol] 18 mg/dL Normal 7-18 [facility] Comment on above: Performed By: #### L 100.0100, L500.2500 ####[facility] [address] [place], [address] Basophil percentageon -2021 Basophils/100 WBC (Bld) 0.3 % 0-1 [facility] Work Phone: Chloride [Moles/Vol] 105 mmol/L 98-107 [facility] Work Phone: Eosinophils/100 WBC (Bld) 5.3 % 0-5 [facility] Work Phone: Glucose [Mass/Vol] 106 mg/dL 74-[address] [facility] Work Phone: Comment on above: Fasting Glucose resu lt from 100 to 125 mg/dL suggests IMPAIRED HOMEOSTASIS per A.D.A. criteria. Neutrophils (Bld) [#/Vol] 3.2 10*3/uL 2.0-7.7 [facility] Work Phone: Neutrophils/100 WBC (Bld) 53.2 % 47-70 [facility] Work Phone: Potassium [Moles/Vol] 4.0 mmol/L 3.5-5.1 [facility] Work Phone: Sodium [Moles/Vol] 138 mmol/L 136-[address] [facility] Work Phone: WBC (Bld) [#/Vol] 6.0 10*3/uL 4.4-11.[address] [facility] Work Phone: Blood erythrocytes count (nu mber/volume)on 09-27-2021 RBC (Bld) [#/Vol] 4.19 10*6/uL 4.6-6.2 [facility] Work Phone: Blood hemoglobin measurement (mass/volume)on 09-27-2021 Hemoglobin (Bld) [Mass/Vol] 13.6 g/dL 13.0-16.5 [facility] Work Phone: Blood lymphocytes/100 leukoc yteson 09-27-2021 Lymphocytes/100 WBC (Bld) 30.2 % 19-41 [facility] Work Phone: Blood monocytes/100 leukocyt eson 09-27-2021 Monocytes/100 WBC (Bld) 10.8 % 0-10 [facility] Work Phone: Blood platelet mean volumeon 09-27-2021 Platelet mean volume (Bld) [Entitic vol] 10.0 fL 6.2-12.0 [facility] Work Phone: CBC W/Diff, Automatedon 08-0 -2021 Absolute Lymph 1.82 X10 3/uL Normal 0.83-4.51 [facility] Comment on above: Performed By: #### L 100.0100, L500.2500 ####[facility] [address] [place], [address] Absolute Neut 3.2 X10 3/uL Normal 2.0-7.7 [facility] Comment on above: Performed By: #### L 100.0100, L500.2500 ####[facility] [address] [place], [address] Basophils/100 WBC (Bld) 0.3 % Normal 0-1 [facility] Comment on above: Performed By: #### L 100.0100, L500.2500 ####[facility] [address] [place], [address] Eosinophils/100 WBC (Bld) 5.3 % High 0-5 [facility] Comment on above: Performed By: #### L 100.0100, L500.2500 ####[facility] [address] [place], [address] Erythrocyte distribution width (RBC) [Ratio] 11.8 % Normal 11.6-14.6 [facility] Comment on above: Performed By: #### L 100.0100, L500.2500 ####[facility] [address] [place], [address] Hematocrit (Bld) [Volume fraction] 39.8 % Low 40-54 [facility] Comment on above: Performed By: #### L 100.0100, L500.2500 ####[facility] [address] [place], [address] Hemoglobin (Bld) [Mass/Vol] 13.6 g/dL Normal 13.0-16.5 [facility] Comment on above: Performed By: #### L 100.0100, L500.2500 ####[facility] [facility] [address] [place], [address] IG% 0.200 Normal 0.0-0.9 [facility] Comment on above: Result Comment: IG% - Immature Granulocytes (promyelocytes, myelocytes and metamyelocytes) > 1% indicates that a LEFT SHIFT is Present. Performed By: #### L 100.0100, L500.2500 ####[facility] [address] [place], [address] Lymphocytes/100 WBC (Bld) 30.2 % Normal 19-41 [facility] Comment on above: Performed By: #### L 100.0100, L500.2500 ####[facility] [address] [place], [address] MCH (RBC) [Entitic mass] 32.5 pg High 27.0-32.0 [facility] Comment on above: Performed By: #### L 100.0100, L500.2500 ####[facility] [address] [place], [address] MCHC (RBC) [Mass/Vol] 34.2 g/dL Normal 32-36 [facility] Comment on above: Performed By: #### L 100.0100, L500.2500 ####[facility] [address] [place], [address] MCV (RBC) [Entitic vol] 95.0 fL High 80-94 [facility] Comment on above: Performed By: #### L 100.0100, L500.2500 ####[facility] [address] [place], [address] Monocytes/100 WBC (Bld) 10.8 % High 0-10 [facility] Comment on above: Performed By: #### L 100.0100, L500.2500 ####[facility] [address] [place], [address] Neutrophils/100 WBC (Bld) 53.2 % Normal 47-70 [facility] Comment on above: Performed By: #### L 100.0100, L500.2500 ####[facility] [address] [place], [address] Nucleated RBC (Bld) [#/Vol] 0 10*3/uL Normal 0-5 [facility] Comment on above: Performed By: #### L 100.0100, L500.2500 ####[facility] [address] [place], [address] Platelet mean volume (Bld) [Entitic vol] 10.0 fL Normal 6.2-12.0 [facility] Comment on above: Performed By: #### L 100.0100, L500.2500 ####[facility] [address] [place], [address] Platelets (Bld) [#/Vol] 138 10*3/uL Low 150-450 [facility] Comment on above: Performed By: #### L 100.0100, L500.2500 ####[facility] [address] [place], [address] RBC (Bld) [#/Vol] 4.19 10*6/uL Low 4.6-6.2 [facility] Comment on above: Performed By: #### L 100.0100, L500.2500 ####[facility] [address] [place], [address] RDW SD 40.8 fl Normal 35.1-43.9 [facility] Comment on above: Performed By: #### L 100.0100, L500.2500 ####[facility] [address], [address] WBC (Bld) [#/Vol] 6.0 10*3/uL Normal 4.4-11.[address] [facility] Comment on above: Performed By: #### L 100.0100, L500.2500 ####[facility] [address] [place], [address] Determination of erythrocyte mean corpuscular volume (MCV)on 09-27-2021 MCV (RBC) [Entitic vol] 95.0 fL 80-94 [facility] Work Phone: [phone] Hematocrit Auto (Bld) [Volum e fraction]on 09-27-2021 Hematocrit (Bld) [Volume fraction] 39.8 % 40-54 [facility] Work Phone: Laboratory - Chemistry and C hemistry - challengeon 09-27-2021 CO2 [Moles/Vol] 29.0 mmol/L 21.0-32.0 [facility] Work Phone: [phone] Urea nitrogen/Creatinine [Mass ratio] 19.3 mg/mg 10-20 [facility] Work Phone: [phone] Laboratory - Hematology and Cell countson 09-27-2021 Erythrocyte distribution width (RBC) [Entitic vol] 40.8 fL 35.1-43.9 [facility] Work Phone: [phone] Erythrocyte distribution width (RBC) [Ratio] 11.8 % 11.6-14.6 [facility] Work Phone: [phone] Immature granulocytes/100 WBC (Bld) 0.200 % 0.0-0.9 [facility] Work Phone: Comment on above: IG% - Immature Granu locytes (promyelocytes, myelocytes and metamyelocytes) > 1% indicates that a LEFT SHIFT is Present. MCH (RBC) [Entitic mass] 32.5 pg 27.0-32.0 [facility] Work Phone: Nucleated RBC/100 WBC (Bld) [Ratio] 0 % 0-5 [facility] Work Phone: [phone] MCHC Auto (RBC) [Mass/Vol]on 09-27-2021 MCHC (RBC) [Mass/Vol] 34.2 g/dL 32-36 [facility] Work Phone: No Panel Informationon 09-27 Estimated Creatinine Clearance Calc 86.59 ml/min [facility] Work Phone: Estimated GFR (MDRD) Amer 105 mL/min >60 [facility] Work Phone: Comment on above: GFR Calc Estimated GFR (MDRD) Non-Af Amer 87 mL/min >60 [facility] Work Phone: Comment on above: Non- GFR Calc Platelets bldon 09-27-2021 Platelets (Bld) [#/Vol] 138 10*3/uL 150-450 [facility] Work Phone: Serum or plasma calcium manuel urement (mass/volume)on 09-27-2021 Calcium [Mass/Vol] 8.5 mg/dL 8.5-10.[address] [facility] Work Phone: Serum or plasma creatinine m easurement (mass/volume)on 09-27-2021 Creatinine [Mass/Vol] 0.93 mg/dL 0.70-1.30 [facility] Work Phone: Comment on above: The validity of the calculated GFR & GFRAA in patients over 70 years has not been determined. Clinical correlation is essential. Serum or plasma urea nitroge n measurement (mass/volume)on 09-27-2021 Urea nitrogen [Mass/Vol] 18 mg/dL 7-18 [facility] Work Phone: Thin prep Papanicolaou smear with manual screeningon 09-27-2021 Thin prep Papanicolaou smear with manual screening 4 5-15 [facility] Work Phone: Basophil percentageon 2021 Bilirubin [Mass/Vol] 0.50 mg/dL 0.20-1.00 [facility] Work Phone: Comment on above: For patients on eltr ombopag therapy, use of Dimension [place] TBIL is not recommended. Protein [Mass/Vol] 6.3 g/dL 6.4-8.[address] [facility] Work Phone: [phone] CBC W/Diff, Automatedon 08-0 7-2021 Absolute Lymph 1.78 X10 3/uL Normal 0.83-4.51 [facility] Comment on above: Performed By: #### L 500.4050, L100.0100 #### [facility] [address] [place], [address] Absolute Neut 3.5 X10 3/uL Normal 2.0-7.7 [facility] Comment on above: Performed By: #### L 500.4050, L100.0100 #### [facility] [address] [place], [address] Basophils/100 WBC (Bld) 0.5 % Normal 0-1 [facility] Comment on above: Performed By: #### L 500.4050, L100.0100 #### [facility] [address] [place], [address] Eosinophils/100 WBC (Bld) 4.7 % Normal 0-5 [facility] Comment on above: Performed By: #### L 500.4050, L100.0100 #### [facility] [address] [place], [address] Erythrocyte distribution width (RBC) [Ratio] 11.8 % Normal 11.6-14.6 [facility] Comment on above: Performed By: #### L 500.4050, L100.0100 #### [facility] [address] [place], [address] Hematocrit (Bld) [Volume fraction] 38.9 % Low 40-54 [facility] Comment on above: Performed By: #### L 500.4050, L100.0100 #### [facility] [address] [place], [address] Hemoglobin (Bld) [Mass/Vol] 13.1 g/dL Normal 13.0-16.5 [facility] Comment on above: Performed By: #### L 500.4050, L100.0100 #### [facility] [address] [place], [address] IG% 0.200 Normal 0.0-0.9 [facility] Comment on above: Result Comment: IG% - Immature Granulocytes (promyelocytes, myelocytes and metamyelocytes) > 1% indicates that a LEFT SHIFT is Present. Performed By: #### L 500.4050, L100.0100 #### [facility] [address] [place], [address] Lymphocytes/100 WBC (Bld) 28.1 % Normal 19-41 [facility] Comment on above: Performed By: #### L 500.4050, L100.0100 #### [facility] [address] [place], [address] MCH (RBC) [Entitic mass] 32.1 pg High 27.0-32.0 [facility] Comment on above: Performed By: #### L 500.4050, L100.0100 #### [facility] [address] [place], [address] MCHC (RBC) [Mass/Vol] 33.7 g/dL Normal 32-36 [facility] Comment on above: Performed By: #### L 500.4050, L100.0100 #### [facility] [address] [place], [address] MCV (RBC) [Entitic vol] 95.3 fL High 80-94 [facility] Comment on above: Performed By: #### L 500.4050, L100.0100 #### [facility] [address] [place], [address] Monocytes/100 WBC (Bld) 11.8 % High 0-10 [facility] Comment on above: Performed By: #### L 500.4050, L100.0100 #### [facility] [address] [place], [address] Neutrophils/100 WBC (Bld) 54.7 % Normal 47-70 [facility] Comment on above: Performed By: #### L 500.4050, L100.0100 #### [facility] [address] [place], [address] Nucleated RBC (Bld) [#/Vol] 0 10*3/uL Normal 0-5 [facility] Comment on above: Performed By: #### L 500.4050, L100.0100 #### [facility] [address] [place], [address] Platelet mean volume (Bld) [Entitic vol] 10.5 fL Normal 6.2-12.0 [facility] Comment on above: Performed By: #### L 500.4050, L100.0100 #### [facility] [address] [place], [address] Platelets (Bld) [#/Vol] 146 10*3/uL Low 150-450 [facility] Comment on above: Performed By: #### L 500.4050, L100.0100 #### [facility] [address] [place], [address] RBC (Bld) [#/Vol] 4.08 10*6/uL Low 4.6-6.2 [facility] Comment on above: Performed By: #### L 500.4050, L100.0100 #### [facility] [address] [place], [address] RDW SD 40.7 fl Normal 35.1-43.9 [facility] Comment on above: Performed By: #### L 500.4050, L100.0100 #### [facility] [address] [place], [address] WBC (Bld) [#/Vol] 6.3 10*3/uL Normal 4.4-11.[address] [facility] Comment on above: Performed By: #### L 500.4050, L100.0100 #### [facility] [address] [place], [address] Comprehensive Metabolic Prof ilon 09-26-2021 Albumin [Mass/Vol] 3.4 g/dL Normal 3.2-5.[address] [facility] Comment on above: Performed By: #### L 500.4050, L100.0100 #### [facility] [address] [place], [address] Albumin/Globulin [Mass ratio] 1.2 {ratio} Normal 0.9-2.4 [facility] Comment on above: Performed By: #### L 500.4050, L100.0100 #### [facility] [address] [place], [address] ALK P 48 U/L Normal 45-117 [facility] Comment on above: Performed By: #### L 500.4050, L100.0100 #### [facility] [address] [place], [address] ALT [Catalytic activity/Vol] 12 U/L Low 16-61 [facility] Comment on above: Performed By: #### L 500.4050, L100.0100 #### [facility] [address] [place], [address] AST [Catalytic activity/Vol] 21 U/L Normal 15-37 [facility] Comment on above: Performed By: #### L 500.4050, L100.0100 #### [facility] [address] [place], [address] Bilirubin [Mass/Vol] 0.50 mg/dL Normal 0.20-1.00 [facility] Comment on above: Result Comment: For patients on eltrombopag therapy, use of Dimension [place] TBIL is not recommended. Performed By: #### L 500.4050, L100.0100 #### [facility] [address] [place], [address] BUN/CRE 18.6 RATIO Normal 10-20 [facility] Comment on above: Performed By: #### L 500.4050, L100.0100 #### [facility] [address] [place], [address] CA,Total 8.5 mg/dL Normal 8.5-10.1 [facility] Comment on above: Performed By: #### L 500.4050, L100.0100 #### [facility] [address] [place], [address] Chloride [Moles/Vol] 108 mmol/L High 98-107 [facility] Comment on above: Performed By: #### L 500.4050, L100.0100 #### [facility] [address] [place], [address] CO2 [Moles/Vol] 27.0 mmol/L Normal 21.0-32.0 [facility] Comment on above: Performed By: #### L 500.4050, L100.0100 #### [facility] [address] [place], [address] Creatinine [Mass/Vol] 1.02 mg/dL Normal 0.70-1.30 [facility] Comment on above: Result Comment: The validity of the calculated GFR GFRAA in patients over 70 years has not been determined. Clinical correlation is essential. Performed By: #### L 500.4050, L100.0100 #### [facility] [address] [place], [address] ECRCL 78.95 ml/min Normal [facility] Comment on above: Performed By: #### L 500.4050, L100.0100 #### [facility] [address] [place], [address] EST GFR - AA 95 mL/min Normal >60 [facility] Comment on above: Result Comment: Afri can Peruvian GFR Calc Performed By: #### L 500.4050, L100.0100 #### [facility] [address] [place], [address] GAP 4 Low 5-15 [facility] Comment on above: Performed By: #### L 500.4050, L100.0100 #### [facility] [address] [place], [address] GFR/1.73 sq M.predicted among non-blacks MDRD (S/P/Bld) [Vol rate/Area] 78 mL/min/{1.73_m2} Normal >60 [facility] Comment on above: Result Comment: Non- GFR Calc Performed By: #### L 500.4050, L100.0100 #### [facility] [address] [place], [address] Globulin (S) [Mass/Vol] 2.9 g/dL Normal 2.2-4.2 [facility] Comment on above: Performed By: #### L 500.4050, L100.0100 #### [facility] [address] [place], [address] Glucose [Mass/Vol] 108 mg/dL High 74-[address] [facility] Comment on above: Result Comment: Fast ing Glucose result from 100 to 125 mg/dL suggests IMPAIRED HOMEOSTASIS per A.D.A. criteria. Performed By: #### L 500.4050, L100.0100 #### [facility] [address] [place], [address] Potassium [Moles/Vol] 4.0 mmol/L Normal 3.5-5.1 [facility] Comment on above: Performed By: #### L 500.4050, L100.0100 #### [facility] [address] [place], [address] Sodium [Moles/Vol] 139 mmol/L Normal 136-[address] [facility] Comment on above: Performed By: #### L 500.4050, L100.0100 #### [facility] [address] [place], [address] T PROT 6.3 g/dL Low 6.4-8.2 [facility] Comment on above: Performed By: #### L 500.4050, L100.0100 #### [facility] [address] [place], [address] Urea nitrogen [Mass/Vol] 19 mg/dL High 7-18 [facility] Comment on above: Performed By: #### L 500.4050, L100.0100 #### [facility] [address] [place], [address] Laboratory - Chemistry and C hemistry - challengeon 09-26-2021 ALP [Catalytic activity/Vol] 48 U/L 45-117 [facility] Work Phone: ALT [Catalytic activity/Vol] 12 U/L 16-61 [facility] Work Phone: [phone] Globulin (S) [Mass/Vol] 2.9 g/dL 2.2-4.2 [facility] Work Phone: [phone] Serum or plasma albumin manuel urement (mass/volume)on 09-26-2021 Albumin [Mass/Vol] 3.4 g/dL 3.2-5.[address] [facility] Work Phone: [phone] Serum or plasma albumin/glob ulin mass ratioon 09-26-2021 Albumin/Globulin [Mass ratio] 1.2 {ratio} 0.9-2.4 [facility] Work Phone: Thin prep Papanicolaou smear with manual screeningon 09-26-2021 Thin prep Papanicolaou smear with manual screening 21 U/L 15-37 [facility] Work Phone: Absolute lymphocyte counton 09-25-2021 Lymphocytes Auto (Unsp spec) [#/Vol] 1.99 10*3/uL 0.83-4.51 [facility] Work Phone: Automated blood hematocrit ( percentage)on 09-25-2021 Hematocrit (Bld) [Volume fraction] 39.5 % Low 40-54 [facility] Work Phone: Comment on above: Performed By: #### L 101.9900, L500.2500, L501.6710, L100.0100 ####[facility] [address] [place], [place], [id number] Basic Metabolic Profile (BMP )on 09-25-2021 BUN/CRE 18.3 RATIO Normal 10-20 [facility] Comment on above: Performed By: #### L 101.9900, L500.2500, L501.6710, L100.0100 ####[facility] [address] [place], [place], [address] CA,Total 9.1 mg/dL Normal 8.5-10.1 [facility] Comment on above: Performed By: #### L 101.9900, L500.2500, L501.6710, L100.0100 ####[facility] [address] [place], [place], [id number] CO2 [Moles/Vol] 25.0 mmol/L Normal 21.0-32.0 [facility] Work Phone: Comment on above: Performed By: #### L 101.9900, L500.2500, L501.6710, L100.0100 ####[facility] [address] [place], [place], [phone] ECRCL 63.91 ml/min Normal [facility] Comment on above: Performed By: #### L 101.9900, L500.2500, L501.6710, L100.0100 ####[facility] [address] [place], [address] EST GFR - AA 74 mL/min Normal >60 [facility] Comment on above: Result Comment: Afri can Peruvian GFR Calc Performed By: #### L 101.9900, L500.2500, L501.6710, L100.0100 ####[facility] [address] [place], [address] GAP 6 Normal 5-15 [facility] Comment on above: Performed By: #### L 101.9900, L500.2500, L501.6710, L100.0100 ####[facility] [address] [place], [address] GFR/1.73 sq M.predicted among non-blacks MDRD (S/P/Bld) [Vol rate/Area] 61 mL/min/{1.73_m2} Normal >60 [facility] Comment on above: Result Comment: Non- GFR Calc Performed By: #### L 101.9900, L500.2500, L501.6710, L100.0100 ####[facility] [address] [place], [address] Basophil percentageon 2021 Chloride [Moles/Vol] 108 mmol/L High 98-107 [facility] Work Phone: Comment on above: Performed By: #### L 101.9900, L500.2500, L501.6710, L100.0100 ####[facility] [address] [place], [address] Glucose [Mass/Vol] 112 mg/dL High 74-[address] [facility] Work Phone: Comment on above: Fasting Glucose resu lt from 100 to 125 mg/dL suggests IMPAIRED HOMEOSTASIS per A.D.A. criteria. Result Comment: Fast ing Glucose result from 100 to 125 mg/dL suggests IMPAIRED HOMEOSTASIS per A.D.A. criteria. Performed By: #### L 101.9900, L500.2500, L501.6710, L100.0100 ####[facility] [address] [place], [address] Potassium [Moles/Vol] 3.8 mmol/L Normal 3.5-5.1 [facility] Work Phone: Comment on above: Performed By: #### L 101.9900, L500.2500, L501.6710, L100.0100 ####[facility] [address] [place], [address] Sodium [Moles/Vol] 139 mmol/L Normal 136-[address] [facility] Work Phone: Comment on above: Performed By: #### L 101.9900, L500.2500, L501.6710, L100.0100 ####[facility] [address] [place], [address] Basophils/100 WBC (Bld) 0.4 % Normal 0-1 [facility] Work Phone: Comment on above: Performed By: #### L 101.9900, L500.2500, L501.6710, L100.0100 ####[facility] [address] [place], [address] Eosinophils/100 WBC (Bld) 3.9 % Normal 0-5 [facility] Work Phone: Comment on above: Performed By: #### L 101.9900, L500.2500, L501.6710, L100.0100 ####[facility] [address] [place], [address] Neutrophils/100 WBC (Bld) 55.1 % Normal 47-70 [facility] Work Phone: Comment on above: Performed By: #### L 101.9900, L500.2500, L501.6710, L100.0100 ####[facility] [address] [place], [address] WBC (Bld) [#/Vol] 6.7 10*3/uL Normal 4.4-11.[address] [facility] Work Phone: Comment on above: Performed By: #### L 101.9900, L500.2500, L501.6710, L100.0100 ####[facility] [address] [place], [address] Neutrophils (Bld) [#/Vol] 3.7 10*3/uL 2.0-7.7 [facility] Work Phone: Blood erythrocytes count (nu mber/volume)on 09-25-2021 RBC (Bld) [#/Vol] 4.18 10*6/uL Low 4.6-6.2 [facility] Work Phone: Comment on above: Performed By: #### L 101.9900, L500.2500, L501.6710, L100.0100 ####[facility] [address] [place], [address] Blood hemoglobin measurement (mass/volume)on 09-25-2021 Hemoglobin (Bld) [Mass/Vol] 13.6 g/dL Normal 13.0-16.5 [facility] Work Phone: Comment on above: Performed By: #### L 101.9900, L500.2500, L501.6710, L100.0100 ####[facility] [address] [place], [address] Blood lymphocytes/100 leukoc yteson 09-25-2021 Lymphocytes/100 WBC (Bld) 29.7 % Normal 19-41 [facility] Work Phone: Comment on above: Performed By: #### L 101.9900, L500.2500, L501.6710, L100.0100 ####[facility] [address] [place], [address] Blood monocytes/100 leukocyt eson 09-25-2021 Monocytes/100 WBC (Bld) 10.6 % High 0-10 [facility] Work Phone: Comment on above: Performed By: #### L 101.9900, L500.2500, L501.6710, L100.0100 ####[facility] [address] [place], [place], [phone] Blood platelet mean volumeon 09-25-2021 Platelet mean volume (Bld) [Entitic vol] 10.1 fL Normal 6.2-12.0 [facility] Work Phone: Comment on above: Performed By: #### L 101.9900, L500.2500, L501.6710, L100.0100 ####[facility] [address] [place], [place], [id number] CBC W/Diff, Automatedon 08 Absolute Lymph 1.99 X10 3/uL Normal 0.83-4.51 [facility] Comment on above: Performed By: #### L 101.9900, L500.2500, L501.6710, L100.0100 ####[facility] [address] [place], [address] Absolute Neut 3.7 X10 3/uL Normal 2.0-7.7 [facility] Comment on above: Performed By: #### L 101.9900, L500.2500, L501.6710, L100.0100 ####[facility] [address] [place], [place], [id number] Erythrocyte distribution width (RBC) [Ratio] 11.7 % Normal 11.6-14.6 [facility] Work Phone: Comment on above: Performed By: #### L 101.9900, L500.2500, L501.6710, L100.0100 ####[facility] [address] [place], [address] IG% 0.300 Normal 0.0-0.9 [facility] Comment on above: Result Comment: IG% - Immature Granulocytes (promyelocytes, myelocytes and metamyelocytes) > 1% indicates that a LEFT SHIFT is Present. Performed By: #### L 101.9900, L500.2500, L501.6710, L100.0100 ####[facility] [address] [place], [address] MCH (RBC) [Entitic mass] 32.5 pg High 27.0-32.0 [facility] Work Phone: Comment on above: Performed By: #### L 101.9900, L500.2500, L501.6710, L100.0100 ####[facility] [address] [place], [address] Nucleated RBC (Bld) [#/Vol] 0 10*3/uL Normal 0-5 [facility] Comment on above: Performed By: #### L 101.9900, L500.2500, L501.6710, L100.0100 ####[facility] [address] [place], [address] RDW SD 40.6 fl Normal 35.1-43.9 [facility] Comment on above: Performed By: #### L 101.9900, L500.2500, L501.6710, L100.0100 ####[facility] [address] [place], [address] CPK Total, Creatine Kinaseon 09-25-2021 CPK TOTAL 263 U/L Normal 39-308 [facility] Comment on above: Performed By: #### L 501.3620 ####[facility] [address], [address] CRPon 09-25-2021 C-REACTIVE PROT 25.60 mg/L High 0.0-3.0 [facility] Comment on above: Result Comment: C-Re active Protein (CRP) provides useful information for the diagnosis, therapy and monitoring of inflammatory processes and associated diseases. For the evaluation of Relative Risk for Cardiovascular Disease, a High Sensitivity CRP (HSCRP) should be ordered. Performed By: #### L 101.9900, L500.2500, L501.6710, L100.0100 ####[facility] [address] [place], [place], [address] Determination of erythrocyte mean corpuscular volume (MCV)on 09-25-2021 MCV (RBC) [Entitic vol] 94.5 fL High 80-94 [facility] Work Phone: Comment on above: Performed By: #### L 101.9900, L500.2500, L501.6710, L100.0100 ####[facility] [address] [place], [place], [address] Emergency Department Summary on 09-25-2021 Emergency Department Summary [facility] Medical Records Department [address] [place] [address] Emergency Department Summary 09/25/21 MR#: [id number] Acct: [id number] Name: KACEY BENTLEY Rep #: [id number] : 1960 61 From: Carolina Denis DO PCP: Dr. Jules Haynes, DO Status:ADM IN Location: [place] [address] HPI History of Present Illness Chief Complaint: Lower Extremity Injury Informant: patient Narrative Narrative: Patient is a 61-year-old male with no significant past medical history presenting with injury, redness and swelling to his left foot. Patient states he was wearing cheap black sneakers yesterday when he stepped on a nail. The nail went through the shoe and into the ball of his foot. Later in the day throughout the night and today he has had increased redness, pain and swelling of the foot. He now has redness streaking up his leg. Came in for further evaluation. Is not entirely sure when his last tetanus was but thinks its been more than 5 years. 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 Denies any history of of diabetes mellitus. no other complaints at this time. PFSH PFSH Allergy/AdvReac Type Severity Reaction Status Date / Time No Known Allergies Allergy Verified 09/25/21 22:32 Family History (Updated 09/25/21 @ 22:[address] Sherron Crockett MD) Father Heart disease Hypertension Mother COPD (chronic obstructive pulmonary disease) Surgical History (Updated 09/25/21 @ 22:[address] Sherron Crockett MD) H/O excision of mass Social History (Updated 09/25/21 @ 22:[address] Sherron Crockett MD) household members: spouse Smoking Status: Former smoker alcohol intake: current details: drinks 5-6 shots of whisky a day substance use type: marijuana ROS ROS ED Constitutional Constitutional ED: Denies chills or fever(s) Eyes Eyes: Denies change in vision ENT ENT ED: Denies rhinorrhea or sore throat Cardiovascular Cardiovascular: Denies chest pain Respiratory/Chest Respiratory/Chest: Denies cough or dyspnea Gastrointestinal Gastrointestinal: Denies abdominal pain, nausea or vomiting Genitourinary Genitourinary ED: Denies dysuria or hematuria Musculoskeletal Musculoskeletal: Reports myalgias and other Details: Left foot pain ; Denies arthralgias Integumentary Reports rash Neurologic Neurologic: Denies headache(s), paresthesias or weakness Psychiatric Psychiatric: Denies anxiety Hematologic/Lymphatic Hematologic/Lymphatic: Denies easy bleeding or easy bruising EXAM Physical Exam Const Vital Signs: 09/25/21 19:54 Temperature 98.1 F Temperature Source Temporal Pulse Rate 84 Respiratory Rate 15 Blood Pressure 129/87 H Blood Pressure Mean 101 Pulse Ox 94 Oxygen Delivery Method Room Air Positive well nourished and well developed General Appearance ED: well developed HEENT Reports moist mucous membranes normocephalic and atraumatic Neck full ROM and supple Chest Wall inspection of chest normal and palpation of chest normal Resp normal respiratory effort and no retractions Cardio regular rate, regular rhythm and no murmurs Cardio Narrative: 2+ DP pulses GI non-tender and non-distended Back/Spine no CVA tenderness Extremity full ROM Extremity Narrative: Edema and erythema of the left foot diffusely. No crepitus appreciated. No pinpoint bony tenderness. General Extremety ED: Yes weight-bearing difficulty General Extremity: weight-bearing difficulty Neuro oriented x3, moves all extremities and no sensory deficits noted Skin Skin Narrative: Puncture wound at the base of the left foot. There is erythema and warmth of the foot with associated lymphangitic streaking approximately 6 cm up the woods. MDM MDM MDM Narrative Medical decision making narrative: Patient sustained a puncture wound through his shoe yesterday with a nail. He is now having increased swelling, redness and a lymphangitic streaking. Due to the rapid progression and the mechanism of injury I am concerned for Pseudomonas or MRSA infection. Started on IV antibiotics. Will obtain an x-ray to look for foreign body. Will discuss admission with the hospitalist. X-ray interpreted by myself as well as radiology shows no acute process. Lab Data Labs: Laboratory Results - last 24 hr 09/25/21 09/25/21 09/25/21 21:00 21:00 21:00 WBC 6.7 RBC 4.18 L Hgb 13.6 Hct 39.5 L MCV 94.5 H MCH 32.5 H MCHC 34.4 RDW Std Deviation 40.6 RDW Coeff of Jessenia 11.7 Plt Count 153 MPV 10.1 Immature Gran % (Auto) 0.300 Neut % (Auto) 55.1 Lymph % (Auto) 29.7 [place] % (Auto) 10.6 H Eos % (Auto) 3.9 Baso % (Auto) 0.4 Absolute Neuts (auto) 3.7 Absolute Lymphs (auto) 1.99 Nucleated RBC % 0 ESR 8 (more content not included)... Normal [facility] Erythrocyte Sed Rateon 09-25 SED RATE 8 mm/hr Normal 0-20 [facility] Comment on above: Performed By: #### L 101.9900, L500.2500, L501.6710, L100.0100 ####[facility] [address] [place], [address] Erythrocyte sedimentation ra chuck 09-25-2021 ESR (Bld) [Velocity] 8 mm/h 0-20 [facility] Work Phone: Foot min 3 Viewson 2 Foot min 3 Views [facility] Imaging Services [address] [place] [address] Foot min 3 Views MR#: [id number] Acct: [id number] Name: KACEY BENTLEY Rep #: [id number] : 1960 M 61 From: Stephen Stanton PCP: Dr. Jules Haynes DO Status: REG ER Study: Foot min 3 Views Date of Exam: 09/25/21 Exam# [id number] Ordering Dr: Carolina Denis DO STUDY: XR Foot Min 3 Views CLINICAL: Male, 61 years old. puncture wood to foot TECHNIQUE: XR Foot Min 3 ViewsLEFT COMPARISON: None. FINDINGS: There is a plantar calcaneal spur. Normal visualized subtalar, talonavicular, calcaneocuboid, tarsal and tarsometatarsal articulations. Normal metatarsi. There is degenerative arthrosis of the metatarsophalangeal joint of the hallux with a hallux valgus deformity. Normal tibial and fibular sesamoid bones. Normal interphalangeal joint of the great toe. Normal phalanges of the great toe. Normal second through fifth metatarsophalangeal joints. Normal interphalangeal joints and phalanges of the lesser toes. The soft tissue structures are unremarkable. There are no radiodense foreign bodies noted. RAD/Foot min 3 Views IMPRESSION: There are no acute findings of the foot. Electronically Signed: Stephen Jesus MD at 21:19 EDT , CC: Dr. Carolina Denis DO; Dr. Jules Haynes, DO Sign Shop Supervisor: Signed Normal [facility] H AND P Exam - Hospitaliston 09-25-2021 H&P Exam - Hospitalist [facility] Medical Records Department [address] [place] [address] H P Exam - Hospitalist 09/25/21 2141 MR#: [id number] Acct: [id number] Name: KACEY BENTLEY Rep #: [id number] : 1960 61 From: Sherron Crockett MD PCP: Dr. Jules Haynes, DO Status:ADM IN Location: [place] [address] HPI - General General Date of Admission: 09/25/21 Date of Service: 09/25/21 Chief Complaint: Left leg swelling and redness - 1 day HPI Narrative KACEY BENTLEY, is a 61 M who presents with the above. Patient with no significant PMHx who comes in af ter having stepped on a nail yesterday. He felt associated pain and was okay for the rest of the da y. Today he notes his swelling of his left foot as well as erythema on the left foot which appears to be spreading up his legs with streaks. He denies any fever or chills or nausea or vomiting. At t he time of being seen, his pain is fairly controlled. Vitals in ED showed blood pressure 129/87, heart rate 84, SPO2 94% on room air, temperature 98.1 F. WBC count is 6.7, hemoglobin 13.6, platelet count 153, sodium 139, potassium 3.8, chloride 108, bicarbonate 25, BUN 23, creatinine 1.26, glucose 112, CRP is 25.6. X-ray of the foot shows no acute findings. He received tetanus shot in the ED. He also received IV vancomycin and Zosyn. [facility] History no medical history no medical history Allergy/AdvReac Type Severity Reaction Status Date / Time No Known Allergies Allergy Verified 09/25/21 19:57 Family History (Updated 09/25/21 @ 22:[address] Sehrron Crockett MD) Father Heart disease Hypertension Mother COPD (chronic obstructive pulmonary disease) Surgical History (Updated 09/25/21 @ 22:[address] Sherron Crockett MD) H/O excision of mass Social History (Updated 09/25/21 @ 22:[address] Sherron Crockett MD) household members: spouse Smoking Status: Former smoker alcohol intake: current details: drinks 5-6 shots of whisky a day substance use type: marijuana ROS ROS Narrative Constitutional: Denies: Anorexia, Chills, Fever, Night Sweats, Weight Change Eyes: Denies: Blurred vision, Cataracts, Conjunctivae Inflammation, Pain, Redness, Vision Change HEENT: Denies: Difficulty Hearing, Difficulty Swallowing, Head Aches, Hearing Changes, Sinus Congestion, Sinus Drainage Cardiovascular: Denies: Chest Pain, Orthopnea, Palpitations Respiratory: Denies: Cough, Shortness of breath at rest, Sputum production Gastrointestinal: Denies: Abdominal Pain, Nausea, Vomiting Genitourinary: Denies: Dysuria Musculoskeletal: See HPI Skin: Denies: Rash, Wounds Neurological: Denies: Numbness, Tingling, Focal weakness Vital Signs Vital Signs Vital Signs: 09/25/21 19:54 Temperature 98.1 F Temperature Source Temporal Pulse Rate 84 Respiratory Rate 15 Blood Pressure 129/87 H Blood Pressure Mean 101 Pulse Ox 94 Oxygen Delivery Method Room Air Weight Weight: 88.451 kg Body Mass Index (BMI) 27.1 Physical Exam Narrative Physical exam: General: Alert, Oriented x3, Cooperative, No apparent distress HEENT: Atraumatic Oral: Moist Mucosa Neck: Supple Lungs: Clear to auscultation Cardiovascular: HS I+II, regular, no murmurs Abdomen: Bowel Sounds Present, Soft, Non Tender Extremities: Left foot is swollen, erythema with differential warmth over the dorsal medial aspect of the foot, streaking up to the lower one third of the leg, plantar ulcer/wound at the base of the first toe, no discharge or erythema, tender to touch Skin: See and extremities Neurological: Grossly intact Psych/Mental Status: Appropriate Results Lab / Micro Data Result Diagrams: 09/25/21 21:00 09/25/21 21:00 Labs: Laboratory Results - last 24 hr 09/25/21 21:00: WBC 6.7, RBC 4.18 L, Hgb 13.6, Hct 39.5 L, MCV 94.5 H, MCH 32.5 H, MCHC 34.4, RDW Std Deviation 40.6, RDW Coeff of Jess[place] 11.7, Plt Count 153, MPV 10.1, Immature Gran % (Auto) 0.300, Neut % (Auto) 55.1, Lymph % (Auto) 29.7, [place] % (Auto) 10.6 H, Eos % (Auto) 3.9, Baso % (Auto) 0.4, Absolute Neuts (auto) 3.7, Absolute Lymphs (auto) 1.99, Nucleated RBC % 0, ESR 8 09/25/21 21:00: Sodium 139, Potassium 3.8, Chloride 108 H, Carbon Dioxide 25.0, Anion Gap 6, BUN 23 H, Creatinine 1.26, Estim Creat Clear Calc 63.91, Est GFR (MDRD) Af Amer 74, Est GFR (MDRD) Non-Af 61, BUN/Creatinine Ratio 18.3, Glucose 112 H, Calcium 9.1, C-React Prot Ext Range 25.60 H 09/25/21 21:00: Total Creatine Kinase 263 Radiology Impression Foot X-Ray 09/25/21 21:05 IMPRESSION: There are no acute findings of the foot. Electronically Signed: Stephen Jesus MD at 21:19 EDT , Assessment Plan Assessment/Plan (1) Cellulitis and abscess of left leg: PLAN: (more content not included)... Normal [facility] Laboratory - Chemistry and C hemistry - challengeon 09-25-2021 CK [Catalytic activity/Vol] 263 U/L 39-308 [facility] Work Phone: Urea nitrogen/Creatinine [Mass ratio] 18.3 mg/mg 10-20 [facility] Work Phone: Laboratory - Hematology and Cell countson 09-25-2021 Erythrocyte distribution width (RBC) [Entitic vol] 40.6 fL 35.1-43.9 [facility] Work Phone: Immature granulocytes/100 WBC (Bld) 0.300 % 0.0-0.9 [facility] Work Phone: Comment on above: IG% - Immature Granu locytes (promyelocytes, myelocytes and metamyelocytes) > 1% indicates that a LEFT SHIFT is Present. Nucleated RBC/100 WBC (Bld) [Ratio] 0 % 0-5 [facility] Work Phone: MCHC [Mass/volume] by Automa damon counton 09-25-2021 MCHC (RBC) [Mass/Vol] 34.4 g/dL Normal 32-36 [facility] Work Phone: Comment on above: Performed By: #### L 101.9900, L500.2500, L501.6710, L100.0100 ####[facility] [address] [place], [place], [id number] No Panel Informationon 09-25 Estimated Creatinine Clearance Calc 63.91 ml/min [facility] Work Phone: Estimated GFR (MDRD) Amer 74 mL/min >60 [facility] Work Phone: Comment on above: GFR Calc Estimated GFR (MDRD) Non-Af Amer 61 mL/min >60 [facility] Work Phone: Comment on above: Non- GFR Calc Platelets bldon 09-25-2021 Platelets (Bld) [#/Vol] 153 10*3/uL Normal 150-450 [facility] Work Phone: Comment on above: Performed By: #### L 101.9900, L500.2500, L501.6710, L100.0100 ####[facility] [address] [place], [place], [id number] Serum or plasma C reactive p rotein measurement (mass/volume)on 09-25-2021 CRP [Mass/Vol] 25.60 mg/L 0.0-3.0 [facility] Work Phone: Comment on above: C-Reactive Protein ( CRP) provides useful information for thediagnosis, therapy and monitoring of inflammatory processesand associated diseases. For the evaluation of Relative Riskfor Cardiovascular Disease, a High Sensitivity CRP (HSCRP)should be ordered. Serum or plasma calcium manuel urement (mass/volume)on 09-25-2021 Calcium [Mass/Vol] 9.1 mg/dL 8.5-10.[address] [facility] Work Phone: Serum or plasma creatinine m easurement (mass/volume)on 09-25-2021 Creatinine [Mass/Vol] 1.26 mg/dL Normal 0.70-1.30 [facility] Work Phone: Comment on above: The validity of the calculated GFR & GFRAA in patients over 70 years has not been determined. Clinical correlation is essential. Result Comment: The validity of the calculated GFR GFRAA in patients over 70 years has not been determined. Clinical correlation is essential. Performed By: #### L 101.9900, L500.2500, L501.6710, L100.0100 ####[facility] [address] [place], [place], [id number] Serum or plasma urea nitroge n measurement (mass/volume)on 09-25-2021 Urea nitrogen [Mass/Vol] 23 mg/dL High 7-18 [facility] Work Phone: Comment on above: Performed By: #### L 101.9900, L500.2500, L501.6710, L100.0100 ####[facility] [address] [place], [place], [id number] Thin prep Papanicolaou smear with manual screeningon 09-25-2021 Thin prep Papanicolaou smear with manual screening 6 5-15 [facility] Work Phone: XR Chest PA and Lateralon IMPRESSION: No acute radiographic abnormality. Sign Shop Supervisor: PSCB Transcribe Date/Time: Feb 28 2020 4:34P Dictated by : LEONA WYATT MD This examination was interpreted and the report reviewed and electronically signed by: LEONA WYATT MD on Feb 28 2020 4:34PM [facility] DIVISION OF RADIOLOGY * * *Final Report* * * DATE OF EXAM: Feb 28 2020 4:31PM WOX 5291 - XR CHEST 2V FRONTAL/LAT / PROCEDURE REASON: Chest tightness * * * * Physician Interpretation * * * * EXAMINATION: CHEST RADIOGRAPH (2 VIEW FRONTAL & LATERAL) CLINICAL HISTORY: Chest tightness MQ: XC2_6 EXAM DATE/TIME: 02/28/2020 4:31 PM COMPARISON: No relevant prior studies available. RESULT: Lines, tubes, and devices: None. Lungs and pleura: No consolidation. No lung mass. No pleural effusion. No pneumothorax. Cardiomediastinal silhouette: Normal cardiomediastinal silhouette. Bones and soft tissues: Unremarkable. DIVISION OF RADIOLOGY Provider, [facility] - 02/28/2020 * * *Final Report* * * DATE OF EXAM: Feb 28 2020 4:31PM WOX 5291 - XR CHEST 2V FRONTAL/LAT / PROCEDURE REASON: Chest tightness * * * * Physician Interpretation * * * * EXAMINATION: CHEST RADIOGRAPH (2 VIEW FRONTAL & LATERAL) CLINICAL HISTORY: Chest tightness MQ: XC2_6 EXAM DATE/TIME: 02/28/2020 4:31 PM COMPARISON: No relevant prior studies available. RESULT: Lines, tubes, and devices: None. Lungs and pleura: No consolidation. No lung mass. No pleural effusion. No pneumothorax. Cardiomediastinal silhouette: Normal cardiomediastinal silhouette. Bones and soft tissues: Unremarkable. IMPRESSION IMPRESSION: No acute radiographic abnormality. Sign Shop Supervisor: DEMIAN Transcribe Date/Time: Feb 28 2020 4:34P Dictated by : LEONA WYATT MD This examination was interpreted and the report reviewed and electronically signed by: LEONA WYATT MD on Feb 28 2020 4:34PM [facility] Radiology Study observation (narrative) Kimberely [facility] XR Chest PA and LateralOrder ed By: Cc Provider on 02-28-2020 [facility] Vital Signs Date Time Vital Sign Value Performing Clinician Facility 08-12-2024 13:25-0400 Body mass index (BMI) [Ratio] 25.94 kg/m2 Sushant Colmenares APRN.CNP Work Phone: [facility] 08-12-2024 13:25-0400 Body weight 84.37 kg Sushant Colmenares APRN.CNP Work Phone: [facility] 08-12-2024 13:25-0400 Diastolic blood pressure 64 mm[Hg] Sushant Darrian INSTRUCTOR WATCH ASSEMBLY.SFDC ARCHITECT Work Phone: [facility] 08-12-2024 13:25-0400 Heart rate 98 /min Sushant Darrian INSTRUCTOR WATCH ASSEMBLY.SF[employer] ARCHITECT Work Phone: [facility] 08-12-2024 13:25-0400 Respiratory rate 16 /min Sushant Darrian INSTRUCTOR WATCH ASSEMBLY.SF[employer] ARCHITECT Work Phone: [facility] 08-12-2024 13:25-0400 SaO2% (BldA) [Mass fraction] 97 % Sushant Darrian INSTRUCTOR WATCH ASSEMBLY.SFDC ARCHITECT Work Phone: [facility] 08-12-2024 13:25-0400 Systolic blood pressure 94 mm[Hg] Sushant Darrian INSTRUCTOR WATCH ASSEMBLY.SFDC ARCHITECT Work Phone: [facility] 08-04-2024 14:20-0400 Body mass index (BMI) [Ratio] 26.35 kg/m2 Kenji Clutter PA-C Work Phone: [facility] 08-04-2024 14:20-0400 Body weight 85.7 kg Kenji Clutter PA-C Work Phone: [facility] 08-04-2024 14:20-0400 Diastolic blood pressure 78 mm[Hg] Kenji Clutter PA-C Work Phone: [facility] 08-04-2024 14:20-0400 Heart rate 70 /min Kenji Clutter PA-C Work Phone: [facility] 08-04-2024 14:20-0400 Respiratory rate 16 /min Kenji Clutter PA-C Work Phone: [facility] 08-04-2024 14:20-0400 SaO2% (BldA) [Mass fraction] 97 % Kenji Clutter PA-C Work Phone: [facility] 08-04-2024 14:20-0400 Systolic blood pressure 137 mm[Hg] Kenji Clutter PA-C Work Phone: [facility] 03-25-2024 08:29-0500 Body mass index (BMI) [Ratio] 27.75 kg/m2 Jules Haynes DO Work Phone: [facility] 03-25-2024 08:29-0500 Body temperature 97.59 [degF] Jules Haynes DO Work Phone: [facility] 03-25-2024 08:29-0500 Body weight 90.27 kg Jules Haynes DO Work Phone: [facility] 03-25-2024 08:29-0500 Diastolic blood pressure 80 mm[Hg] Jules Haynes DO Work Phone: [facility] 03-25-2024 08:29-0500 Heart rate 76 /min Jules Haynes DO Work Phone: [facility] 03-25-2024 08:29-0500 Respiratory rate 16 /min Jules Haynes DO Work Phone: [facility] 03-25-2024 08:29-0500 Systolic blood pressure 124 mm[Hg] Jules Haynes DO Work Phone: [facility] 01-08-2024 10:47-0500 Body mass index (BMI) [Ratio] 28.4 kg/m2 Jorge Reddy Jr., MD Work Phone: [facility] 01-08-2024 10:47-0500 Body weight 92.35 kg Jorge Reddy Jr., MD Work Phone: [facility] 01-08-2024 10:47-0500 Diastolic blood pressure 77 mm[Hg] Jorge Reddy Jr., MD Work Phone: [facility] 01-08-2024 10:47-0500 Heart rate 87 /min Jorge Reddy Jr., MD Work Phone: [facility] 01-08-2024 10:47-0500 SaO2% (BldA) [Mass fraction] 99 % Jorge Reddy Jr., MD Work Phone: [facility] 01-08-2024 10:47-0500 Systolic blood pressure 123 mm[Hg] Jorge Reddy Jr., MD Work Phone: [facility] 12-11-2023 13:33-0400 Body mass index (BMI) [Ratio] 27.8 kg/m2 Sushant Darrian INSTRUCTOR WATCH ASSEMBLY.SFDC ARCHITECT Work Phone: [facility] 12-11-2023 13:33-0400 Body weight 90.4 kg Sushant Darrian INSTRUCTOR WATCH ASSEMBLY.SFDC ARCHITECT Work Phone: [facility] 12-11-2023 13:33-0400 Diastolic blood pressure 73 mm[Hg] Sushant Darrian INSTRUCTOR WATCH ASSEMBLY.SFDC ARCHITECT Work Phone: [facility] 12-11-2023 13:33-0400 Heart rate 91 /min Sushant Darrian INSTRUCTOR WATCH ASSEMBLY.SFDC ARCHITECT Work Phone: [facility] 12-11-2023 13:33-0400 Respiratory rate 16 /min Sushant Darrian INSTRUCTOR WATCH ASSEMBLY.SFDC ARCHITECT Work Phone: [facility] 12-11-2023 13:33-0400 SaO2% (BldA) [Mass fraction] 98 % Sushant Darrian INSTRUCTOR WATCH ASSEMBLY.SFDC ARCHITECT Work Phone: [facility] 12-11-2023 13:33-0400 Systolic blood pressure 106 mm[Hg] Sushant Darrian INSTRUCTOR WATCH ASSEMBLY.SFDC ARCHITECT Work Phone: [facility] 07-31-2023 11:49-0400 Body mass index (BMI) [Ratio] 28.31 kg/m2 Jules Haynes DO Work Phone: [facility] 07-31-2023 11:49-0400 Body temperature 97 [degF] Jules Haynes DO Work Phone: [facility] 07-31-2023 11:49-0400 Body weight 92.08 kg Jules Haynes DO Work Phone: [facility] 07-31-2023 11:49-0400 Diastolic blood pressure 80 mm[Hg] Jules Haynes DO Work Phone: [facility] 07-31-2023 11:49-0400 Heart rate 68 /min Jules Haynes DO Work Phone: [facility] 07-31-2023 11:49-0400 Respiratory rate 16 /min Jules Haynes DO Work Phone: [facility] 07-31-2023 11:49-0400 Systolic blood pressure 124 mm[Hg] Jules Haynes DO Work Phone: [facility] 06-27-2023 11:23-0400 Body mass index (BMI) [Ratio] 28.79 kg/m2 Danisha Rajguru INSTRUCTOR WATCH ASSEMBLY.SFDC ARCHITECT Work Phone: [facility] 06-27-2023 11:23-0400 Body weight 93.62 kg Danisha Rajguru INSTRUCTOR WATCH ASSEMBLY.SF[employer] ARCHITECT Work Phone: [facility] 06-27-2023 11:23-0400 Diastolic blood pressure 74 mm[Hg] Danisha Rajguru INSTRUCTOR WATCH ASSEMBLY.SFDC ARCHITECT Work Phone: [facility] 06-27-2023 11:23-0400 Heart rate 84 /min Danisha Rajguru INSTRUCTOR WATCH ASSEMBLY.SFDC ARCHITECT Work Phone: [facility] 06-27-2023 11:23-0400 Systolic blood pressure 142 mm[Hg] Danisha Rajguru INSTRUCTOR WATCH ASSEMBLY.SF[employer] ARCHITECT Work Phone: [facility] 06-23-2023 09:13-0400 Body mass index (BMI) [Ratio] 28.31 kg/m2 Jorge Reddy Jr., MD Work Phone: [facility] 06-23-2023 09:13-0400 Body weight 92.08 kg Jorge Reddy Jr., MD Work Phone: [facility] 06-23-2023 09:13-0400 Diastolic blood pressure 78 mm[Hg] Jorge Reddy Jr., MD Work Phone: [facility] 06-23-2023 09:13-0400 Heart rate 78 /min Jorge Reddy Jr., MD Work Phone: [facility] 06-23-2023 09:13-0400 Respiratory rate 16 /min Jorge Reddy Jr., MD Work Phone: [facility] 06-23-2023 09:13-0400 SaO2% (BldA) [Mass fraction] 96 % Jorge Reddy Jr., MD Work Phone: [facility] 06-23-2023 09:13-0400 Systolic blood pressure 138 mm[Hg] Jorge Reddy Jr., MD Work Phone: [facility] 05-22-2023 14:50-0400 Diastolic blood pressure 82 mm[Hg] Edinson Stinson MD Work Phone: [facility] 05-22-2023 14:50-0400 Heart rate 74 /min Edinson Stinson MD Work Phone: [facility] 05-22-2023 14:50-0400 Systolic blood pressure 127 mm[Hg] Elmag Cho Work Phone: [facility] 05-22-2023 14:43-0400 Body height 180.3 cm Elmag Cho Work Phone: [facility] 05-22-2023 14:43-0400 Body weight 91.63 kg Edinson Cho Work Phone: [facility] 05-22-2023 14:43-0400 SaO2% (BldA) [Mass fraction] 100 % Elmag Cho Work Phone: [facility] 03-31-2023 11:02-0500 Body weight 92.44 kg Virginia Keshav INSTRUCTOR WATCH ASSEMBLY.[employer] ARCHITECT Work Phone: [facility] 03-31-2023 11:02-0500 Diastolic blood pressure 86 mm[Hg] Virginia Keshav INSTRUCTOR WATCH ASSEMBLY.SF[employer] ARCHITECT Work Phone: [facility] 03-31-2023 11:02-0500 Heart rate 86 /min Virginia Keshav INSTRUCTOR WATCH ASSEMBLY.SF[employer] ARCHITECT Work Phone: [facility] 03-31-2023 11:02-0500 Respiratory rate 16 /min Virginia Keshav INSTRUCTOR WATCH ASSEMBLY.SF[employer] ARCHITECT Work Phone: [facility] 03-31-2023 11:02-0500 Systolic blood pressure 138 mm[Hg] Virginia Keshav INSTRUCTOR WATCH ASSEMBLY.SF[employer] ARCHITECT Work Phone: [facility] 03-21-2023 13:51-0500 Body weight 92.81 kg Danisha Rajguru INSTRUCTOR WATCH ASSEMBLY.[employer] ARCHITECT Work Phone: [facility] 03-21-2023 13:51-0500 Diastolic blood pressure 70 mm[Hg] Danisha Rajguru INSTRUCTOR WATCH ASSEMBLY.SF[employer] ARCHITECT Work Phone: [facility] 03-21-2023 13:51-0500 Heart rate 80 /min Danisha Rajguru INSTRUCTOR WATCH ASSEMBLY.SF[employer] ARCHITECT Work Phone: [facility] 03-21-2023 13:51-0500 Systolic blood pressure 140 mm[Hg] Danisha Rajguru INSTRUCTOR WATCH ASSEMBLY.SF[employer] ARCHITECT Work Phone: [facility] 12-21-2022 15:49-0400 Body weight 91.35 kg Virginia Keshav INSTRUCTOR WATCH ASSEMBLY.SF[employer] ARCHITECT Work Phone: [facility] 12-21-2022 15:49-0400 Diastolic blood pressure 78 mm[Hg] Virginia Keshav INSTRUCTOR WATCH ASSEMBLY.[employer] ARCHITECT Work Phone: [facility] 12-21-2022 15:49-0400 Heart rate 85 /min Virginia Keshav INSTRUCTOR WATCH ASSEMBLY.[employer] ARCHITECT Work Phone: [facility] 12-21-2022 15:49-0400 Respiratory rate 16 /min Virginia Keshav INSTRUCTOR WATCH ASSEMBLY.[employer] ARCHITECT Work Phone: [facility] 12-21-2022 15:49-0400 SaO2% (BldA) [Mass fraction] 97 % Virginia Keshav INSTRUCTOR WATCH ASSEMBLY.SF[employer] ARCHITECT Work Phone: [facility] 12-21-2022 15:49-0400 Systolic blood pressure 130 mm[Hg] Virginia Keshav INSTRUCTOR WATCH ASSEMBLY.SF[employer] ARCHITECT Work Phone: [facility] 12-16-2022 10:55-0400 Body weight 92.17 kg Sushant Darrian INSTRUCTOR WATCH ASSEMBLY.[employer] ARCHITECT Work Phone: [facility] 12-16-2022 10:55-0400 Diastolic blood pressure 78 mm[Hg] Sushant Darrian INSTRUCTOR WATCH ASSEMBLY.SF[employer] ARCHITECT Work Phone: [facility] 12-16-2022 10:55-0400 Heart rate 97 /min Sushant Darrian INSTRUCTOR WATCH ASSEMBLY.SF[employer] ARCHITECT Work Phone: [facility] 12-16-2022 10:55-0400 Respiratory rate 16 /min Sushant Darrian INSTRUCTOR WATCH ASSEMBLY.SF[employer] ARCHITECT Work Phone: [facility] 12-16-2022 10:55-0400 SaO2% (BldA) [Mass fraction] 96 % Sushant Darrian INSTRUCTOR WATCH ASSEMBLY.SF[employer] ARCHITECT Work Phone: [facility] 12-16-2022 10:55-0400 Systolic blood pressure 126 mm[Hg] Sushant Darrian INSTRUCTOR WATCH ASSEMBLY.SF[employer] ARCHITECT Work Phone: [facility] 10-06-2022 11:33-0400 Body weight 89 kg Virginia Keshav INSTRUCTOR WATCH ASSEMBLY.SF[employer] ARCHITECT Work Phone: [facility] 10-06-2022 11:33-0400 Diastolic blood pressure 68 mm[Hg] Virginia Keshav INSTRUCTOR WATCH ASSEMBLY.SF[employer] ARCHITECT Work Phone: [facility] 10-06-2022 11:33-0400 Heart rate 87 /min Virginia Keshav INSTRUCTOR WATCH ASSEMBLY.SF[employer] ARCHITECT Work Phone: [facility] 10-06-2022 11:33-0400 Respiratory rate 16 /min Virginia Keshav INSTRUCTOR WATCH ASSEMBLY.SF[employer] ARCHITECT Work Phone: [facility] 10-06-2022 11:33-0400 SaO2% (BldA) [Mass fraction] 98 % Virginia Keshav INSTRUCTOR WATCH ASSEMBLY.SF[employer] ARCHITECT Work Phone: [facility] 10-06-2022 11:33-0400 Systolic blood pressure 104 mm[Hg] Virginia Keshav INSTRUCTOR WATCH ASSEMBLY.SF[employer] ARCHITECT Work Phone: [facility] 09-17-2022 01:040 Body height 180.34 cm [facility] 09-17-2022 01:040 Body mass index (BMI) [Ratio] 26.7 kg/m2 [facility] 09-17-2022 01:040 Body temperature 97.8 [degF] [facility] 09-17-2022 01:040 Body weight 86.9 kg [facility] 09-17-2022 01:040 Diastolic blood pressure 56 mm[Hg] [facility] 09-17-2022 01:040 Heart rate 70 /min [facility] 09-17-2022 01:040 Respiratory rate 18 /min [facility] 09-17-2022 01:040 SaO2% (BldA) [Mass fraction] 98 % [facility] 09-17-2022 01:040 Systolic blood pressure 96 mm[Hg] [facility] 09-07-2022 13:290400 Body weight 87.09 kg Jessica French INSTRUCTOR WATCH ASSEMBLY.SF[employer] ARCHITECT Work Phone: [facility] 09-07-2022 13:29-0400 Diastolic blood pressure 70 mm[Hg] Jessica Riverahof INSTRUCTOR WATCH ASSEMBLY.[employer] ARCHITECT Work Phone: [facility] 09-07-2022 13:29-0400 Heart rate 70 /min Jessica Riverahof INSTRUCTOR WATCH ASSEMBLY.SF[employer] ARCHITECT Work Phone: [facility] 09-07-2022 13:29-0400 Respiratory rate 16 /min Jessica Riverahof INSTRUCTOR WATCH ASSEMBLY.SF[employer] ARCHITECT Work Phone: [facility] 09-07-2022 13:29-0400 SaO2% (BldA) [Mass fraction] 98 % Jessica Grigsbyf INSTRUCTOR WATCH ASSEMBLY.SF[employer] ARCHITECT Work Phone: [facility] 09-07-2022 13:29-0400 Systolic blood pressure 120 mm[Hg] Jessica Tannhof INSTRUCTOR WATCH ASSEMBLY.SF[employer] ARCHITECT Work Phone: [place] [address]-17-2023 13:49-0400 Diastolic blood pressure 86 mm[Hg] [facility] 09-05-2022 13:49-0400 Heart rate 53 /min [facility] 09-05-2022 13:49-0400 Respiratory rate 12 /min [facility] 09-05-2022 13:49-0400 SaO2% (BldA) [Mass fraction] 100 % [facility] 09-05-2022 13:49-0400 Systolic blood pressure 169 mm[Hg] [facility] 09-05-2022 12:37-0400 Body mass index (BMI) [Ratio] 26.2 kg/m2 [facility] 09-05-2022 12:37-0400 Body temperature 97.8 [degF] [facility] 09-05-2022 12:37-0400 Body weight 85.4 kg [facility] 12-28-2021 11:00-0500 Diastolic blood pressure 83 mm[Hg] Adam Galvez MD Work Phone: [facility] 12-28-2021 11:00-0500 Heart rate 63 /min Adam Galvez MD Work Phone: [facility] 12-28-2021 11:00-0500 Respiratory rate 16 /min Adam Galvez MD Work Phone: [facility] 12-28-2021 11:00-0500 SaO2% (BldA) [Mass fraction] 94 % Adam Galvez MD Work Phone: [facility] 12-28-2021 11:00-0500 Systolic blood pressure 149 mm[Hg] Adam Galvez MD Work Phone: [facility] 12-28-2021 09:36-0500 Body height 180.3 cm Adam Galvez MD Work Phone: [facility] 12-28-2021 09:36-0500 Body temperature 97.3 [degF] Adam Galvez MD Work Phone: [facility] 12-28-2021 09:36-0500 Body weight 90.72 kg Adam Galvez MD Work Phone: [facility] 11-26-2021 12:32-0400 Body weight 94.17 kg Rosalina Zurninfack INSTRUCTOR WATCH ASSEMBLY.SF[employer] ARCHITECT Work Phone: [facility] 11-26-2021 12:32-0400 Diastolic blood pressure 62 mm[Hg] Rosalina Zurawick INSTRUCTOR WATCH ASSEMBLY.[employer] ARCHITECT Work Phone: [facility] 11-26-2021 12:32-0400 Heart rate 60 /min Rosalina Zurawick INSTRUCTOR WATCH ASSEMBLY.SF[employer] ARCHITECT Work Phone: [facility] 11-26-2021 12:32-0400 Respiratory rate 14 /min Rosalina Zurawick INSTRUCTOR WATCH ASSEMBLY.SF[employer] ARCHITECT Work Phone: [facility] 11-26-2021 12:32-0400 Systolic blood pressure 110 mm[Hg] Rosalina Zurawick INSTRUCTOR WATCH ASSEMBLY.SF[employer] ARCHITECT Work Phone: [facility] 11-24-2021 16:30-0400 Body temperature 97.11 [degF] Luz Elena Javan INSTRUCTOR WATCH ASSEMBLY.SF[employer] ARCHITECT Work Phone: [facility] 11-24-2021 16:30-0400 Body weight 92.63 kg Luz Elena Javan INSTRUCTOR WATCH ASSEMBLY.SF[employer] ARCHITECT Work Phone: [facility] 11-24-2021 16:30-0400 Diastolic blood pressure 78 mm[Hg] Luz Elena Javan INSTRUCTOR WATCH ASSEMBLY.SF[employer] ARCHITECT Work Phone: [facility] 11-24-2021 16:30-0400 Heart rate 90 /min Luz Elena Javan INSTRUCTOR WATCH ASSEMBLY.SF[employer] ARCHITECT Work Phone: [facility] 11-24-2021 16:30-0400 Respiratory rate 20 /min Luz Elena Javan INSTRUCTOR WATCH ASSEMBLY.SF[employer] ARCHITECT Work Phone: [facility] 11-24-2021 16:30-0400 SaO2% (BldA) [Mass fraction] 98 % Luz Elena Javan INSTRUCTOR WATCH ASSEMBLY.SFDC ARCHITECT Work Phone: [facility] 11-24-2021 16:30-0400 Systolic blood pressure 122 mm[Hg] Luz Elena Javan INSTRUCTOR WATCH ASSEMBLY.SF[employer] ARCHITECT Work Phone: [facility] 11-16-2021 14:36-0400 Diastolic blood pressure 90 mm[Hg] Virginia Podlogar INSTRUCTOR WATCH ASSEMBLY.[employer] ARCHITECT Work Phone: [facility] 11-16-2021 14:36-0400 Heart rate 75 /min Virginia Podlogar INSTRUCTOR WATCH ASSEMBLY.[employer] ARCHITECT Work Phone: [facility] 11-16-2021 14:36-0400 Systolic blood pressure 144 mm[Hg] Virginia Podlogar INSTRUCTOR WATCH ASSEMBLY.[employer] ARCHITECT Work Phone: [facility] 11-16-2021 14:10-0400 Body weight 93.8 kg Virginia Podlogar INSTRUCTOR WATCH ASSEMBLY.[employer] ARCHITECT Work Phone: [facility] 11-16-2021 14:10-0400 Respiratory rate 18 /min Virginia Podlogar INSTRUCTOR WATCH ASSEMBLY.SF[employer] ARCHITECT Work Phone: [facility] 11-16-2021 14:10-0400 SaO2% (BldA) [Mass fraction] 98 % Virginia Podlogar INSTRUCTOR WATCH ASSEMBLY.[employer] ARCHITECT Work Phone: [facility] 11-08-2021 15:58-0400 Body height 182.2 cm Adam Galvez MD Work Phone: [facility] 11-08-2021 15:58-0400 Body weight 92.9 kg Adam Galvez MD Work Phone: [facility] 11-08-2021 15:58-0400 Diastolic blood pressure 77 mm[Hg] Adam Galvez MD Work Phone: [facility] 11-08-2021 15:58-0400 Heart rate 66 /min Adam Galvez MD Work Phone: [facility] 11-08-2021 15:58-0400 SaO2% (BldA) [Mass fraction] 99 % Adam Galvez MD Work Phone: [facility] 11-08-2021 15:58-0400 Systolic blood pressure 137 mm[Hg] Adam Galvez MD Work Phone: [facility] 10-20-2021 15:09-0400 Body weight 91.17 kg Rosalina Zurninfack INSTRUCTOR WATCH ASSEMBLY.[employer] ARCHITECT Work Phone: [facility] 10-20-2021 15:09-0400 Diastolic blood pressure 60 mm[Hg] Rosalina Zurmartinez INSTRUCTOR WATCH ASSEMBLY.[employer] ARCHITECT Work Phone: [facility] 10-20-2021 15:09-0400 Heart rate 72 /min Rosalina Zurmartinez INSTRUCTOR WATCH ASSEMBLY.[employer] ARCHITECT Work Phone: [facility] 10-20-2021 15:09-0400 Respiratory rate 16 /min Rosalina Zurmartinez INSTRUCTOR WATCH ASSEMBLY.[employer] ARCHITECT Work Phone: [facility] 10-20-2021 15:09-0400 Systolic blood pressure 100 mm[Hg] Rosalina Zurninfack INSTRUCTOR WATCH ASSEMBLY.[employer] ARCHITECT Work Phone: [facility] 09-27-2021 09:00-0400 Body temperature 97.5 [degF] Dr. Jules Haynes Work Phone: [facility] Work Phone: 09-27-2021 09:00-0400 Diastolic blood pressure 88 mm[Hg] Dr. Jules Haynes Work Phone: [facility] Work Phone: 09-27-2021 09:00-0400 Heart rate 61 /min Dr. Jules Haynes Work Phone: [facility] Work Phone: 09-27-2021 09:00-0400 Respiratory rate 18 /min Dr. Jules Haynes Work Phone: [facility] Work Phone: 09-27-2021 09:00-0400 SaO2% (BldA) [Mass fraction] 98 % Dr. Jules Haynes Work Phone: [facility] Work Phone: 09-27-2021 09:00-0400 Systolic blood pressure 125 mm[Hg] Dr. Jules Haynes Work Phone: [facility] Work Phone: 09-25-2021 22:30-0400 Body temperature 97.7 [degF] Dr. Jules Haynes Work Phone: [facility] Work Phone: 09-25-2021 22:30-0400 Diastolic blood pressure 76 mm[Hg] Dr. Jules Haynes Work Phone: [facility] Work Phone: 09-25-2021 22:30-0400 Heart rate 72 /min Dr. Jules Haynes Work Phone: [facility] Work Phone: 09-25-2021 22:30-0400 Respiratory rate 18 /min Dr. Jules Haynes Work Phone: [facility] Work Phone: 09-25-2021 22:30-0400 SaO2% (BldA) [Mass fraction] 92 % Dr. Jules Haynes Work Phone: [facility] Work Phone: 09-25-2021 22:30-0400 Systolic blood pressure 136 mm[Hg] Dr. Jules Haynes Work Phone: [facility] Work Phone: 09-25-2021 22:28-0400 Body height 180.[address] Jules Haynes Work Phone: [facility] Work Phone: 09-25-2021 22:28-0400 Body mass index (BMI) [Ratio] 27.5 kg/m2 Dr. Jules Haynes Work Phone: [facility] Work Phone: 09-25-2021 22:28-0400 Body weight 89.[address] Jules Haynes Work Phone: [facility] Work Phone: 07-27-2021 08:02-0400 Body temperature 97.39 [degF] Mariana Weller APRN.SF[employer] ARCHITECT Work Phone: [facility] 07-27-2021 08:02-0400 Body weight 91.26 kg Mariana Weller APRN.SF[employer] ARCHITECT Work Phone: [facility] 07-27-2021 08:02-0400 Diastolic blood pressure 80 mm[Hg] Mariana Weller APRN.SF[employer] ARCHITECT Work Phone: [facility] 07-27-2021 08:02-0400 Heart rate 70 /min Mariana Weller APRN.SF[employer] ARCHITECT Work Phone: [facility] 07-27-2021 08:02-0400 Respiratory rate 16 /min Mariana Weller APRN.SF[employer] ARCHITECT Work Phone: [facility] 07-27-2021 08:02-0400 SaO2% (BldA) [Mass fraction] 95 % Mariana Weller APRN.SF[employer] ARCHITECT Work Phone: [facility] 07-27-2021 08:02-0400 Systolic blood pressure 138 mm[Hg] Mariana Weller APRN.SF[employer] ARCHITECT Work Phone: [facility] 07-26-2021 16:09-0400 Body temperature 97.59 [degF] Katherin Stroudler-Wood INSTRUCTOR WATCH ASSEMBLY.[employer] ARCHITECT Work Phone: [facility] 07-26-2021 16:09-0400 Body weight 91.26 kg Katherin Stroudler-Wood INSTRUCTOR WATCH ASSEMBLY.[employer] ARCHITECT Work Phone: [facility] 07-26-2021 16:09-0400 Diastolic blood pressure 76 mm[Hg] Katherin Praisler-Wood INSTRUCTOR WATCH ASSEMBLY.[employer] ARCHITECT Work Phone: [facility] 07-26-2021 16:09-0400 Heart rate 103 /min Katherin Praisler-Wood INSTRUCTOR WATCH ASSEMBLY.[employer] ARCHITECT Work Phone: [facility] 07-26-2021 16:09-0400 Respiratory rate 20 /min Katherin Praisler-Wood INSTRUCTOR WATCH ASSEMBLY.[employer] ARCHITECT Work Phone: [facility] 07-26-2021 16:09-0400 SaO2% (BldA) [Mass fraction] 95 % Katherin English APRN.[employer] ARCHITECT Work Phone: [facility] 07-26-2021 16:09-0400 Systolic blood pressure 110 mm[Hg] Katherin English APRN.SF[employer] ARCHITECT Work Phone: [facility] Encounters Encounter Date Encounter Type Care Provider Facility Start: 08-12-2024 End: 08-12-2024 Patient encounter procedure Sushant Darrian SABINE.[employer] ARCHITECT Work Phone: Neurology Comment on above: RBD (REM behavioral disorder) (Primary Dx); Obstructive sleep apnea Start: 08-12-2024 End: 08-12-2024 ambulatory SUSHANT DARRIAN Facility:[facility] Start: 08-05-2024 End: 08-08-2024 Refill Sushant Darrian SABINE.[employer] ARCHITECT Work Phone: Neurology Comment on above: Prescription Refills Start: 08-04-2024 End: 08-04-2024 ambulatory JULES HAYNES Facility:[facility] Start: 08-04-2024 End: 08-04-2024 Office outpatient new 30 minutes Kenji Marr PA-C Work Phone: [facility] Comment on above: Dog bite of left leong d, initial encounter (Primary Dx) Start: 08-02-2024 End: 08-08-2024 ambulatory Jules L Haynes DO Work Phone: [facility] [place] Comment on above: Klonopin Refill Request (/) Start: 08-01-2024 End: 08-02-2024 Refill Sushant Darrian INSTRUCTOR WATCH ASSEMBLY.[employer] ARCHITECT Work Phone: Neurology Comment on above: Refill Request Start: 05-21-2024 End: 05-21-2024 Refill Jules L Haynes DO Work Phone: [facility] [place] Comment on above: Refill Request Start: 05-12-2024 End: 05-13-2024 Refill Kenji Mann MD Work Phone: [facility] [place] Comment on above: Refill Request Start: 04-08-2024 End: 04-09-2024 Telephone encounter Jules Haynes DO Work Phone: [facility] [place] Start: 04-06-2024 End: 04-08-2024 Refill Jorge eRddy MD Work Phone: Neurology Comment on above: Refill Request Request new prescrip tion Start: 03-25-2024 End: 03-25-2024 ambulatory JULES HAYNES Facility:[facility] Start: 03-25-2024 End: 03-25-2024 Patient encounter procedure Jules Haynes DO Work Phone: [facility] Comment on above: Fatigue, unspecified type (Primary Dx); Need for influenza vaccination; BOBBY (obstructive sleep apnea); Anxiety with depression; RBD (REM behavioral disorder); PLMD (periodic limb movement disorder) Start: 02-19-2024 End: 02-19-2024 Refill Jorge Reddy MD Work Phone: Neurology Comment on above: Refill Request Start: 02-12-2024 End: 02-12-2024 Refill Jules Haynes DO Work Phone: [facility] Comment on above: Refill Request Start: 01-11-2024 End: 01-12-2024 Refill Rosalina Morgan APRN.CNP Work Phone: [facility] Comment on above: Refill Request Start: 01-08-2024 End: 01-08-2024 ambulatory JULES PEÑARISON Facility:[facility] Start: 01-08-2024 End: 01-08-2024 Patient encounter procedure Jorge Reddy MD Work Phone: Neurology Comment on above: Obstructive sleep ap ramírez (adult) (pediatric) (Primary Dx); High risk medication use; RBD (REM behavioral disorder); PLMD (periodic limb movement disorder); Shift work sleep disorder Start: 12-11-2023 End: 12-11-2023 Patient encounter procedure Sushant Colmenares INSTRUCTOR WATCH ASSEMBLY.[employer] ARCHITECT Work Phone: Neurology Comment on above: RBD (REM behavioral disorder) (Primary Dx) Start: 12-11-2023 End: 12-11-2023 ambulatory SUSHANT DARRIAN Facility:[facility] Start: 12-09-2023 End: 12-10-2023 Refill Jules Haynes DO Work Phone: [facility] [place] Comment on above: Refill Request (Clon azepam ) Start: 11-27-2023 End: 11-27-2023 Telephone encounter Madhavi Saul Perea DMD Work Phone: Dentistry Comment on above: Appointment Start: 11-01-2023 End: 11-01-2023 Telephone encounter Jorge Reddy MD Work Phone: Neurology Comment on above: Patient Update Start: 10-25-2023 End: 10-25-2023 Telephone encounter Jorge Reddy MD Work Phone: Neurology Start: 09-19-2023 End: 09-19-2023 Patient encounter procedure Danisha Cummins INSTRUCTOR WATCH ASSEMBLY.[employer] ARCHITECT Work Phone: Psychiatry Comment on above: NO SHOW (Primary Dx) Start: 08-30-2023 End: 08-30-2023 Distance Health Jorge Reddy MD Work Phone: Neurology Comment on above: BOBBY (obstructive sle ep apnea) (Primary Dx); PLMD (periodic limb movement disorder); RBD (REM behavioral disorder); Anxiety with depression Appointment Start: 08-15-2023 End: 08-15-2023 Patient encounter procedure Isadora Brown OD Work Phone: Ophthalmology Comment on above: Cortical age-related cataract, bilateral (Primary Dx); Myopia, bilateral; Presbyopia Start: 07-31-2023 End: 07-31-2023 Patient encounter procedure Jules Haynes DO Work Phone: [facility] [place] Comment on above: Well adult exam ([facility] teresa Dx); Anxiety with depression; Vision abnormalities; Major depressive disorder, recurrent episode, moderate (HCC); BOBBY (obstructive sleep apnea); Fatigue, unspecified type; Subclinical hypothyroidism; Hypercholesteremia; Nightmares Start: 07-31-2023 End: 07-31-2023 Patient encounter status Jules Haynes DO Work Phone: [facility] Work Phone: Start: 06-27-2023 End: 06-27-2023 Patient encounter procedure Danisha Cummins INSTRUCTOR WATCH ASSEMBLY.[employer] ARCHITECT Work Phone: Psychiatry Comment on above: PTSD (post-traumatic stress disorder) (Primary Dx); CHRISTOPHER (generalized anxiety disorder); Marijuana use; Alcohol use Start: 06-23-2023 End: 06-23-2023 Patient encounter procedure Jorge Reddy MD Work Phone: Neurology Comment on above: BOBBY (obstructive sle ep apnea) (Primary Dx); RBD (REM behavioral disorder); PLMD (periodic limb movement disorder) Start: 05-31-2023 Refill Jessica French APRN.SF[employer] ARCHITECT Work Phone: [facility] [place] Comment on above: Refill Request Start: 05-22-2023 End: 05-22-2023 Patient encounter procedure Edinson Stinson MD Work Phone: [facility] Comment on above: Bilateral carotid ar fadumo stenosis (Primary Dx); Pure hypercholesterolemia; 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); Sleep apnea, unspecified type; Aneurysm of ascending aorta without rupture (HCC) Start: 03-31-2023 ambulatory Sushantnish Colmenares APRN.SF[employer] ARCHITECT Work Phone: Neurology Comment on above: Oralia Madrigal Start: 03-31-2023 End: 03-31-2023 Patient encounter procedure Virginia Lyon APRN.SF[employer] ARCHITECT Work Phone: [facility] [place] Comment on above: Fatigue, unspecified type (Primary Dx); BOBBY (obstructive sleep apnea); Vivid dream; Nightmares; Restless sleeper; Night sweats; Alcohol abuse Start: 03-27-2023 Telephone encounter Jules lopez DO Work Phone: [facility] [place] Comment on above: Patient Question Start: 03-25-2023 ambulatory Jules Israel son DO Work Phone: [facility] [place] Comment on above: lab work Start: 03-21-2023 End: 03-21-2023 Patient encounter procedure Danisha Cummins APRN.[employer] ARCHITECT Work Phone: Psychiatry Comment on above: PTSD (post-traumatic stress disorder) (Primary Dx); CHRISTOPHER (generalized anxiety disorder); Marijuana use; Alcohol use; Night terrors Start: 01-30-2023 Orders Only Elmag Jose Stinson MD Work Phone: [facility] Comment on above: Abdominal aortic emb olism (HCC) (Primary Dx) Start: 01-09-2023 End: 01-09-2023 Patient encounter procedure Danisha Cummins APRN.SF[employer] ARCHITECT Work Phone: Psychiatry Comment on above: APPOINTMENT CANCELLE D (Primary Dx) Start: 01-09-2023 End: 01-09-2023 Telemedicine consultation with patient Danisha Butcher [place] REGALADO.SFDC ARCHITECT Work Phone: [facility] Start: 12-26-2022 End: 12-26-2022 Distance Health Danisha Cummins APRN.SFDC ARCHITECT Work Phone: Psychiatry Comment on above: CHRISTOPHER (generalized anx iety disorder) (Primary Dx); Major depressive disorder, recurrent episode, moderate (HCC); Night terrors; Marijuana use; Alcohol use Start: 12-21-2022 End: 12-21-2022 Patient encounter procedure Virginia Lyon INSTRUCTOR WATCH ASSEMBLY.SFDC ARCHITECT Work Phone: [facility] Comment on above: BPPV (benign paroxys mal positional vertigo), unspecified laterality (Primary Dx); Dizzy; Nausea Start: 12-19-2022 Refill Jules Israel son DO Work Phone: [facility] [place] Start: 12-16-2022 End: 12-16-2022 Patient encounter procedure Sushant Colmenares INSTRUCTOR WATCH ASSEMBLY.SFDC ARCHITECT Work Phone: Neurology Comment on above: BOBBY (obstructive sle ep apnea) (Primary Dx); Excessive daytime sleepiness; Dream enactment behavior Start: 12-15-2022 Telephone encounter Zulay fraga [facility] Work Phone: Psychology Comment on above: bh consult Start: 12-01-2022 Telephone encounter Virginia Melchor APRN.SFDC ARCHITECT Work Phone: [facility] Start: 11-24-2022 Refill Rosalina Morgan INSTRUCTOR WATCH ASSEMBLY.SFDC ARCHITECT Work Phone: [facility] Comment on above: Refill Request Start: 11-15-2022 End: 11-16-2022 ambulatory JULES HAYNES Facility:[facility] Start: 11-01-2022 End: 11-01-2022 Patient encounter procedure Nando Sanchez MD Work Phone: Otolaryngology Comment on above: Impaired auditory di scrimination, left (Primary Dx); Closed fracture of nasal bone, initial encounter; Chronic rhinitis; Deviated nasal septum Start: 10-06-2022 Telephone encounter Virginia Melchor APRN.SFDC ARCHITECT Work Phone: [facility] Comment on above: Appointment Start: 10-06-2022 End: 10-06-2022 Patient encounter procedure Virginia Lyon APRN.SFDC ARCHITECT Work Phone: [facility] Comment on above: Nightmares (Primary Dx); Fatigue, unspecified type; Chronic insomnia; Restless sleeper; BOBBY (obstructive sleep apnea) Start: 09-17-2022 End: 09-17-2022 Emergency department patient visit Brett Amrit Facility:[facility] Start: 09-17-2022 End: 09-17-2022 Emergency department patient visit [facility] Work Phone: Start: 09-07-2022 End: 09-07-2022 Patient encounter procedure Jessica French APRN.SFDC ARCHITECT Work Phone: [facility] Comment on above: Hospital discharge f ollow-up (Primary Dx); Abdominal cramping; Night sweats; GERD without esophagitis; Anxiety with depression Start: 09-05-2022 End: 09-05-2022 Emergency department patient visit Zulay Sanz Facility:[facility] Start: 09-05-2022 End: 09-05-2022 Emergency department patient visit [facility] Work Phone: Start: 06-17-2022 End: 06-17-2022 ambulatory Adam Galvez MD Work Phone: Gastroenterology Comment on above: Lower esophageal rin g (Edgardoki) (Primary Dx) Start: 06-17-2022 End: 06-17-2022 Telemedicine consultation with patient Adam Galvez MD Work Phone: [facility] Start: 01-31-2022 Refill Rosalina Willie ko INSTRUCTOR WATCH ASSEMBLY.SFDC ARCHITECT Work Phone: [facility] Comment on above: Refill Request Start: 01-05-2022 End: 01-05-2022 ambulatory Virginia Lyon INSTRUCTOR WATCH ASSEMBLY.SFDC ARCHITECT Work Phone: [facility] Comment on above: Anxiety with depress ion (Primary Dx); Nightmares Start: 01-05-2022 End: 01-05-2022 Telemedicine consultation with patient Virginia Lyon SABINE.SFDC ARCHITECT Work Phone: [facility] Start: 12-28-2021 End: 12-28-2021 Subsequent hospital visit by physician Adam Galvez MD Work Phone: Gastroenterology Comment on above: Esophageal dysphagia [R13.19] Start: 12-21-2021 Telephone encounter Damaris Norton RNtravel accommodations rater Comment on above: Appointment Start: 11-26-2021 End: 11-26-2021 Patient encounter procedure Rosalina Perez INSTRUCTOR WATCH ASSEMBLY.SFDC ARCHITECT Work Phone: [facility] Comment on above: Tinea corporis (Prim mik Dx); Urinary frequency; Anxiety with depression; Situational anxiety Start: 11-24-2021 End: 11-24-2021 Patient encounter procedure Luz Elena Edouard INSTRUCTOR WATCH ASSEMBLY.SFDC ARCHITECT Work Phone: [facility] Comment on above: Tinea corporis (Prim mik Dx) Start: 11-16-2021 End: 11-16-2021 Patient encounter procedure Virginia Horner INSTRUCTOR WATCH ASSEMBLY.SFDC ARCHITECT Work Phone: [facility] Comment on above: Stabbing pain (Prima ry Dx); Elevated BP without diagnosis of hypertension Start: 11-08-2021 End: 11-08-2021 Patient encounter procedure Adam Galvez MD Work Phone: Gastroenterology Comment on above: Esophageal dysphagia (Primary Dx); Irritable bowel syndrome with diarrhea Start: 10-27-2021 Telephone encounter Rosalina henriquez INSTRUCTOR WATCH ASSEMBLY.SFDC ARCHITECT Work Phone: [facility] Comment on above: Results Results (radiology) Start: 10-27-2021 End: 10-27-2021 Subsequent hospital visit by physician [facility] Work Phone: Radiology Comment on above: Subclinical hypothyr oidism [E03.8] Start: 10-21-2021 ambulatory Rosalina Wilile ko INSTRUCTOR WATCH ASSEMBLY.SFDC ARCHITECT Work Phone: [facility] Comment on above: Test Results Start: 10-21-2021 Telephone encounter Rosalina henriquez INSTRUCTOR WATCH ASSEMBLY.SFDC ARCHITECT [facility] Comment on above: Results Start: 10-20-2021 End: 10-20-2021 Patient encounter procedure Rosalina Perez INSTRUCTOR WATCH ASSEMBLY.SFDC ARCHITECT Work Phone: [facility] Comment on above: Fatigue, unspecified type (Primary Dx); Cellulitis of left lower extremity; Esophageal dysphagia; Subclinical hypothyroidism; Hypercholesteremia; Urinary frequency; Irritable bowel syndrome with diarrhea Start: 09-27-2021 Non-patient / Non-visit Dr. Kat Haynes Work Phone: [facility] Start: 09-26-2021 Non-patient / Non-visit Dr. Kat Haynes Work Phone: [facility] Start: 09-25-2021 End: 09-27-2021 Evaluation and management of inpatient [facility] Facility:[facility] Start: 09-25-2021 Non-patient / Non-visit Dr. Kat Haynes Work Phone: [facility] Start: 09-25-2021 End: 09-27-2021 Evaluation and management of inpatient Dr. Jules Haynes Work Phone: [facility] Start: 09-25-2021 ambulatory Za garcia RN NURSE [employer]I [employer] C[employer] Comment on above: Puncture Wound (Step ped on chato nail 09/24/21) Start: 07-27-2021 End: 07-27-2021 Patient encounter procedure Mariana Weller APRN.SFDC ARCHITECT Work Phone: [facility] Comment on above: Visit for wound chec k (Primary Dx) Start: 07-26-2021 End: 07-26-2021 Patient encounter procedure Katherin English APRN.SFDC ARCHITECT Work Phone: [facility] Comment on above: Laceration of left f orearm, initial encounter (Primary Dx) Start: 02-28-2020 End: 02-28-2020 Subsequent hospital visit by physician [facility] Work Phone: Radiology Comment on above: Chest tightness [R07 .89] Procedures Date Procedure Procedure Detail Performing Clinician Start: 05-22-2023 Lipid 1996 panel - S yomi or Plasma Edinson Stinson MD Work Phone: Start: 09-17-2022 CT of head without contrast Start: 09-05-2022 Nucleic acid assay Start: 09-05-2022 CT of abdomen and pe lvis without contrast Start: 12-28-2021 Esophagoscp rig hoyt soral hypopharynx crv esoph Adam Galvez MD Work Phone: Start: 10-27-2021 Us soft tissue head & neck real time imge docm Jules Haynes DO Work Phone: Start: 10-23-2021 Lipid 1996 panel - S yomi or Plasma Nando Sanchez MD Work Phone: Start: 09-25-2021 X-ray of both feet Dr. Jules Haynes Work Phone: Start: 07-09-2020 Colonoscopy Katherin Cullen INSTRUCTOR WATCH ASSEMBLY.TIMUR Work Phone: Start: 02-28-2020 Radiologic exam ches t 2 views Virginia Lyon INSTRUCTOR WATCH ASSEMBLY.TIMUR Work Phone: Plan of Treatment Date Care Activity Detail Author Start: 2033 RSV Vaccine (1 - 1-dose 75+ series) RSV Vaccine (1 - 1-dose 75+ series) [facility] Start: 09-26-2031 Urine microalbumin profile DTaP,Tdap,Td Vaccine (3 - Td or Tdap) [facility] Start: 07-30-2029 Urine microalbumin profile [facility] Start: 05-21-2028 Lipid panel Lipid Screening [facility] Start: 10-23-2026 Lipid 1996 panel - Serum or Plasma Lipid Screening [facility] Start: 10-23-2026 Lipid panel Lipid Screening [facility] Start: 10-23-2026 LIPID SCREEN LIPID SCREEN [facility] Start: 10-20-2026 LIPID SCREEN LIPID SCREEN [facility] Start: 10-20-2026 PROSTATE CANCER SCREENING DISCUSSION PROSTATE CANCER SCREENING DISCUSSION [facility] Start: 10-20-2026 Prostate specific antigen measurement Prostate Cancer Screening Discussion [facility] Start: 07-30-2026 Diabetes Screening Diabetes Screening [facility] Start: 03-29-2026 Diabetes Screening Diabetes Screening [facility] Start: 09-12-2025 DIABETES SCREEN DIABETES SCREEN [facility] Start: 09-12-2025 Diabetes Screening Diabetes Screening [facility] Start: 07-09-2025 Colonoscopy COLONOSCOPY [facility] Start: 07-09-2025 COLORECTAL CANCER SCREENING COLORECTAL CANCER SCREENING [facility] Start: 07-09-2025 Screening for malignant neoplasm of colon [facility] Start: 03-31-2025 End: 03-31-2025 Patient encounter procedure 03/31/2025 10:40 AM EST Office Visit Neurology [address] [place], [place] [id number] Jorge Reddy Jr., MD [address] [place], [place] [phone] 6 mo follow up Neurology Comment on above: 6 mo follow up Start: 03-25-2025 Annual PCP Team Chronic Disease Visit Annual PCP Team Chronic Disease Visit [facility] Start: 03-25-2025 Covid-19 Vaccine ( season) Covid-19 Vaccine ( season) [facility] Comment on above: Postponed from 10/22/2023 (Declined at t his time) Start: 03-10-2025 End: 03-10-2025 Follow-up encounter 03/10/2025 9:20 AM [facility] Neurology [address] [place], [place] [phone] Jorge Reddy Jr., MD [address] [place] [address] 6 month follow up Neurology Comment on above: 6 month follow up Start: 11-12-2024 End: 02-11-2025 TOXICOLOGY SCREEN, ROUTINE URINE TOXICOLOGY SCREEN, ROUTINE URINE Lab Routine RBD (REM behavioral disorder) Expected: 11/12/2024 (Approximate), Expires: 02/11/2025 [facility] Work Phone: Comment on above: Expected: 11/12/2024 (Approximate), Expi res: 02/11/2025 Start: 10-20-2024 DIABETES SCREEN DIABETES SCREEN [facility] Start: 08-12-2024 End: 08-12-2024 Patient encounter procedure 08/12/2024 1:30 PM EDT Office Visit Neurology [address] [place], [place] [id number] Sushant Colmenares, INSTRUCTOR WATCH ASSEMBLY.SFDC ARCHITECT [address] [place] [address] Medication follow up Neurology Comment on above: Medication follow up Start: 07-30-2024 Annual PCP Team Chronic Disease Visit Annual PCP Team Chronic Disease Visit [facility] Start: 07-30-2024 LIPID SCREEN LIPID SCREEN [facility] Start: 07-30-2024 PROSTATE CANCER SCREENING DISCUSSION PROSTATE CANCER SCREENING DISCUSSION [facility] Start: 04-22-2024 End: 04-22-2024 Patient encounter procedure 04/22/2024 1:50 PM EST Office Visit Dentistry [address] [place] [id number] Madhavi Perea, DMD [address] [place], [place] [phone] [facility] Comment on above: BOBBY Start: 03-31-2024 Annual PCP Team Chronic Disease Visit Annual PCP Team Chronic Disease Visit [facility] Start: 03-24-2024 DIABETES SCREEN DIABETES SCREEN [facility] Start: 02-21-2024 Advance Directive Discussion Advance Directive Discussion [facility] Start: 01-15-2024 End: 01-15-2024 Patient encounter procedure Neurology Comment on above: Refill on medication Refill on medication , KAL 7.10.24 [facility]- see TE 11/01/23 Start: 01-08-2024 End: 04-08-2024 BENZO CONFIRM, URINE [facility] Work Phone: Comment on above: Expected: 01/08/2024, Expires: Start: 12-22-2023 Annual PCP Team Chronic Disease Visit Annual PCP Team Chronic Disease Visit [facility] Start: 12-11-2023 End: 12-11-2023 Patient encounter procedure 12/11/2023 1:30 PM EDT Office Visit Neurology [address] [place] [address] Sushant Colmenares, SABINE.SFDC ARCHITECT [address] [place] [address] extreme dreams, sleep walking per [facility] Neu[facility] Comment on above: extreme dreams, sleep walking per [facility] Start: 12-10-2023 Annual PCP Team Chronic Disease Visit Annual PCP Team Chronic Disease Visit [facility] Start: 10-22-2023 Covid-19 Vaccine ( season) Covid-19 Vaccine ( season) [facility] Start: 10-22-2023 Covid-19 Vaccine ( season) Covid-19 Vaccine () [facility] Start: 10-22-2023 Influenza vaccination Influenza Vaccine [facility]) [facility] Start: 10-07-2023 ANNUAL PCP TEAM CHRONIC DISEASE VISIT ANNUAL PCP TEAM CHRONIC DISEASE VISIT [facility] Start: 10-06-2023 End: 10-06-2023 Patient encounter procedure 10/06/2023 10:40 AM EDT Office Visit [facility] [address] [place] [address] Jules Haynes, [address] [place] [address] Re cardiology appt with Dr Stinson 05/22/23. cpap altern [facility] Comment on above: Re cardiology appt with Dr Stinson 05/22/23. c pap altern Start: 09-19-2023 End: 09-19-2023 Patient encounter procedure 09/19/2023 1:00 PM EDT Office Visit Psychiatry [address] [place] [phone] Danisha Cummins, INSTRUCTOR WATCH ASSEMBLY.SFDC ARCHITECT [address] [place] [phone] 3 month follow up Psychiatry Comment on above: 3 month follow up Start: 09-08-2023 ANNUAL PCP TEAM CHRONIC DISEASE VISIT ANNUAL PCP TEAM CHRONIC DISEASE VISIT [facility] Start: 08-30-2023 End: 08-30-2023 Patient encounter procedure 08/30/2023 8:00 AM EDT Office Visit Neurology [address] [address] Jorge Reddy Jr., MD [address] [facility] [address] [place] [phone] BOBBY (obstructive sleep apnea) [G47.33] Neurology Comment on above: BOBBY (obstructive sleep apnea) [G47.33] Start: 08-15-2023 End: 08-15-2023 Patient encounter procedure 08/15/2023 1:00 PM EDT Office Visit [facility] Ophthalmology [address] [place], [place] [phone] Isadora Brown, OD [address] [place] [address] Vision abnormalities [H53.9] Ophthalmology Comment on above: Vision abnormalities [H53.9] Start: 07-31-2023 End: 10-30-2023 C reactive protein [Mass/volume] in Serum or Plasma [facility] Comment on above: Expected: 07/31/2023, Expires: Start: 07-31-2023 End: 10-30-2023 Comprehensive metabolic 2000 panel - Serum or Plasma [facility] Comment on above: Expected: 07/31/2023, Expires: Start: 07-31-2023 End: 10-30-2023 Hemoglobin A1c in Blood [facility] Work Phone: Comment on above: Expected: 07/31/2023, Expires: Start: 06-27-2023 End: 06-27-2023 Patient encounter procedure 06/27/2023 11:30 AM EDT Office Visit Psychiatry [address] [place] [phone] Danisha Cummins, INSTRUCTOR WATCH ASSEMBLY.SFDC ARCHITECT [address] [facility] [place] [phone] follow up Psychiatry Comment on above: follow up Start: 2023 Advance Directive Discussion Advance Directive Discussion [facility] Start: 2023 Pneumococcal Vaccine: 65+ (1 of 1 - PCV) Pneumococcal Vaccine: 65+ (1 of 1 - PCV) [facility] Start: 01-05-2023 ANNUAL PCP TEAM CHRONIC DISEASE VISIT ANNUAL PCP TEAM CHRONIC DISEASE VISIT [facility] Start: 11-26-2022 ANNUAL PCP TEAM CHRONIC DISEASE VISIT ANNUAL PCP TEAM CHRONIC DISEASE VISIT [facility] Start: 11-16-2022 ANNUAL PCP TEAM CHRONIC DISEASE VISIT ANNUAL PCP TEAM CHRONIC DISEASE VISIT [facility] Start: 10-21-2022 Covid-19 Vaccine ( season) Covid-19 Vaccine () [facility] Start: 10-21-2022 Covid-19 Vaccine (4 - 2023-24 season) Covid-19 Vaccine ( season) [facility] Start: 10-21-2022 Influenza vaccination [facility] Start: 10-20-2022 ANNUAL PCP TEAM CHRONIC DISEASE VISIT ANNUAL PCP TEAM CHRONIC DISEASE VISIT [facility] Start: 09-07-2022 End: 11-07-2022 25-hydroxyvitamin D3 [Mass/volume] in Serum or Plasma VITAMIN D 25 HYDROXY Lab Routine Night sweats Expected: 09/07/2022, Expires: 11/07/2022 [facility] Work Phone: Comment on above: Expected: 09/07/2022, Expires: 3 Start: 09-07-2022 End: 11-07-2022 CBC W Auto Differential panel - Blood CBC + DIFF Lab Routine Night sweats Expected: 09/07/2022, Expires: 11/07/2022 [facility] Work Phone: Comment on above: Expected: 09/07/2022, Expires: 3 Start: 09-07-2022 End: 11-07-2022 Cobalamin (Vitamin B12) [Mass/volume] in Serum or Plasma VITAMIN B12 BLOOD Lab Routine Night sweats Expected: 09/07/2022, Expires: 11/07/2022 [facility] Work Phone: Comment on above: Expected: 09/07/2022, Expires: 3 Start: 09-07-2022 End: 11-07-2022 Comprehensive metabolic 2000 panel - Serum or Plasma COMP METABOLIC PANEL Lab Routine Night sweats Expected: 09/07/2022, Expires: 11/07/2022 [facility] Work Phone: Comment on above: Expected: 09/07/2022, Expires: 3 Start: 09-07-2022 End: 11-07-2022 Iron and Iron binding capacity panel - Serum or Plasma IRON + TIBC Lab Routine Night sweats Expected: 09/07/2022, Expires: 11/07/2022 [facility] Work Phone: Comment on above: Expected: 09/07/2022, Expires: 3 Start: 09-07-2022 End: 11-07-2022 Thyrotropin [Units/volume] in Serum or Plasma TSH BLD Lab Routine Night sweats Expected: 09/07/2022, Expires: 11/07/2022 [facility] Work Phone: Comment on above: Expected: 09/07/2022, Expires: 3 Start: 09-07-2022 End: 11-07-2022 Thyroxine (T4) free [Mass/volume] in Serum or Plasma T4 FREE/FREE THYROX Lab Routine Night sweats Expected: 09/07/2022, Expires: 11/07/2022 [facility] Work Phone: Comment on above: Expected: 09/07/2022, Expires: 3 Start: 09-07-2022 End: 11-07-2022 Triiodothyronine (T3) [Mass/volume] in Serum or Plasma T3 BLD Lab Routine Night sweats Expected: 09/07/2022, Expires: 11/07/2022 [facility] Work Phone: Comment on above: Expected: 09/07/2022, Expires: 3 Start: 09-05-2022 Taking nasal swab [facility] Start: 08-19-2022 Influenza vaccination INFLUENZA (#1) [facility] Comment on above: Postponed from 10/21/2021 (Declined at t his time) Start: 03-24-2022 ANNUAL PCP TEAM CHRONIC DISEASE VISIT ANNUAL PCP TEAM CHRONIC DISEASE VISIT [facility] Start: 10-21-2021 Influenza vaccination [facility] Start: 10-21-2021 End: 12-21-2021 Lipid 1996 panel - Serum or Plasma LIPID PANEL BASIC Lab Routine Hypercholesteremia Expected: 10/21/2021, Expires: 12/21/2021 [facility] Work Phone: Comment on above: Expected: 10/21/2021, Expires: 2 Start: 10-20-2021 End: 12-20-2021 25-hydroxyvitamin D3 [Mass/volume] in Serum or Plasma [facility] Work Phone: Comment on above: Expected: 10/20/2021, Expires: 2 Start: 10-20-2021 End: 12-20-2021 CBC W Auto Differential panel - Blood [facility] Work Phone: Comment on above: Expected: 10/20/2021, Expires: 2 Start: 10-20-2021 End: 12-20-2021 Cobalamin (Vitamin B12) [Mass/volume] in Serum or Plasma [facility] Work Phone: Comment on above: Expected: 10/20/2021, Expires: 2 Start: 10-20-2021 End: 12-20-2021 Comprehensive metabolic 2000 panel - Serum or Plasma [facility] Work Phone: Comment on above: Expected: 10/20/2021, Expires: 2 Start: 10-20-2021 End: 12-20-2021 Ferritin [Mass/volume] in Serum or Plasma [facility] Work Phone: Comment on above: Expected: 10/20/2021, Expires: 2 Start: 10-20-2021 End: 12-20-2021 Iron and Iron binding capacity panel - Serum or Plasma [facility] Work Phone: Comment on above: Expected: 10/20/2021, Expires: 2 Start: 10-20-2021 End: 12-20-2021 Lipid 1996 panel - Serum or Plasma [facility] Work Phone: Comment on above: Expected: 10/20/2021, Expires: 2 Start: 10-20-2021 End: 12-20-2021 PSA/PROSTSPECAG SCRN [facility] Work Phone: Comment on above: Expected: 10/20/2021, Expires: 2 Start: 10-20-2021 End: 12-20-2021 THYROID PEROXIDASE ANTIBODY BLOOD [facility] Work Phone: Comment on above: Expected: 10/20/2021, Expires: 2 Start: 10-20-2021 End: 12-20-2021 Thyrotropin [Units/volume] in Serum or Plasma [facility] Work Phone: Comment on above: Expected: 10/20/2021, Expires: 2 Start: 10-20-2021 End: 12-20-2021 Thyroxine (T4) free [Mass/volume] in Serum or Plasma [facility] Work Phone: Comment on above: Expected: 10/20/2021, Expires: 2 Start: 10-20-2021 End: 12-20-2021 Triiodothyronine (T3) [Mass/volume] in Serum or Plasma [facility] Work Phone: Comment on above: Expected: 10/20/2021, Expires: 2 Start: 09-27-2021 Patient discharge [facility] Work Phone: Start: 09-26-2021 Provision of activity privileges [facility] Work Phone: Start: 09-26-2021 [facility] Work Phone: Start: 09-25-2021 Following clinical pathway protocol [facility] Work Phone: Start: 09-25-2021 Assessment of risk of venous thromboembolism [facility] Work Phone: Start: 09-25-2021 Catheterization of vein [facility] Work Phone: Start: 09-25-2021 Elevation of affected extremity [facility] Work Phone: Start: 09-25-2021 Insertion of catheter into peripheral vein [facility] Work Phone: Start: 09-25-2021 Measuring intake and output [facility] Work Phone: Start: 09-25-2021 Providing care according to standard [facility] Work Phone: Start: 09-25-2021 Provision of activity privileges [facility] Work Phone: Start: 09-25-2021 [facility] Work Phone: Start: 09-25-2021 Admission procedure [facility] Work Phone: Start: 01-20-2021 SHINGRIX VACCINE (2 of 2) SHINGRIX VACCINE (2 of 2) [facility] Start: 11-11-2020 COVID-19 VACCINE (3 - Booster for Moderna series) COVID-19 VACCINE (3 - Booster for Moderna series) [facility] Start: 08-06-2020 COVID-19 VACCINE (3 - Booster for Moderna series) COVID-19 VACCINE (3 - Booster for Moderna series) [facility] Start: 08-06-2020 COVID-19 VACCINE (3 - Moderna series) COVID-19 VACCINE (3 - Moderna series) [facility] Start: 2018 RSV Vaccine (1 - 1-dose 60+ series) RSV Vaccine (1 - 1-dose 60+ series) [facility] Start: 2008 Pneumococcal Vaccine: 50+ (1 of 1 - PCV) Pneumococcal Vaccine: 50+ (1 of 1 - PCV) [facility] Start: 2003 COLOGUARD (FIT-DNA) [facility] Start: [address] COLONOGRAPHY [facility] Start: 2003 FECAL OCCULT BLOOD FECAL OCCULT BLOOD [facility] Start: 2003 Screening for malignant neoplasm of colon [facility] Start: 2003 SIGMOIDOSCOPY SIGMOIDOSCOPY [facility] Start: 1958 Abdominal aortic aneurysm screening Abdominal Aortic Aneurysm Screening [facility] Alanine aminotransfe rase [Enzymatic activity/volume] in Serum or Plasma [facility] Work Phone: Albumin [Mass/volume ] in Serum or Plasma [facility] Work Phone: Alkaline phosphatase [Enzymatic activity/volume] in Serum or Plasma [facility] Work Phone: Anion gap measurement [facility] Work Phone: Aspartate aminotransferase [Enzymatic activity/volume] in Serum or Plasma [facility] Work Phone: Bilirubin, total measurement [facility] Work Phone: BUN/Creatinine ratio [facility] Work Phone: Calcium [Mass/volume ] in Serum or Plasma [facility] Work Phone: Carbon dioxide, tota l [Moles/volume] in Serum or Plasma [facility] Work Phone: Chloride [Moles/volu me] in Serum or Plasma [facility] Work Phone: Creatinine [Moles/volume] in Serum or Plasma [facility] Work Phone: ECG COMPLETE ECG COMPLETE ECG Routine BPPV (benign paroxysmal positional vertigo), unspecified laterality Dizzy Nausea Ordered: 12/21/2022 [facility] Work Phone: Comment on above: Ordered: 12/21/2022 End: 01-31-2024 ECG COMPLETE ECG COMPLETE ECG Routine Abdominal aortic embolism (HCC) 1 Occurrences starting 01/30/2023 until 01/31/2024 [facility] Work Phone: Comment on above: 1 Occurrences starting 01/30/2023 until 01/31/2024 End: 11-08-2022 EGD - THERAPEUTIC, EUS, OR TUBE INTERVENTIONS EGD - THERAPEUTIC, EUS, OR TUBE INTERVENTIONS Endoscopy Routine Esophageal dysphagia 1 Occurrences starting 11/08/2021 until 11/08/2022 [facility] Work Phone: Comment on above: 1 Occurrences starting 11/08/2021 until 11/08/2022 End: 06-18-2023 EGD - THERAPEUTIC, EUS, OR TUBE INTERVENTIONS EGD - THERAPEUTIC, EUS, OR TUBE INTERVENTIONS Endoscopy Routine Lower esophageal ring (Schatzki) 1 Occurrences starting 06/17/2022 until 06/18/2023 [facility] Work Phone: Comment on above: 1 Occurrences starting 06/17/2022 until 06/18/2023 Glucose [Mass/volume ] in Serum or Plasma [facility] Work Phone: HEARING TEST/AUDIOGRAM HEARING T EST/AUDIOGRAM Audiology Routine Impaired auditory discrimination, left Ordered: 11/01/2022 [facility] Work Phone: Comment on above: Ordered: 11/01/2022 Hematocrit [Volume Fraction] of Blood [facility] Work Phone: Hemoglobin [Mass/vol ume] in Blood [facility] Work Phone: Leukocytes [#/volume ] in Blood [facility] Work Phone: Mean corpuscular hemoglobin concentration determination [facility] Work Phone: Mean corpuscular hemoglobin determination [facility] Work Phone: Measurement of renal function [facility] Work Phone: Neutrophil count [facility] Work Phone: Neutrophil percent differential count [facility] Work Phone: End: 11-05-2023 PAP TITRATION PSG (CPAP, BIPAP, ASV) PAP TITRATION PSG (CPAP, BIPAP, ASV) Procedures Routine Nightmares Fatigue, unspecified type Chronic insomnia Restless sleeper BOBBY (obstructive sleep apnea) 1 Occurrences starting 10/06/2022 until 11/05/2023 [facility] Work Phone: Comment on above: 1 Occurrences starting 10/06/2022 until 11/05/2023 Patient Education [facility] Work Phone: Patient referral [facility] Work Phone: Platelets [#/volume] in Blood [facility] Work Phone: Potassium [Moles/vol ume] in Serum or Plasma [facility] Work Phone: Red blood cell count [facility] Work Phone: Red cell distributio n width determination [facility] Work Phone: Sodium [Moles/volume ] in Serum or Plasma [facility] Work Phone: Total protein measurement [facility] Work Phone: Urea nitrogen [Mass/volume] in Serum or Plasma [facility] Work Phone: End: 12-22-2023 US CAROTID [facility]ER[facility] Vascular Lab Routine BPPV (benign paroxysmal positional vertigo), unspecified laterality Dizzy Nausea 1 Occurrences starting 12/21/2022 until 12/22/2023 [facility] Work Phone: Comment on above: 1 Occurrences starting 12/21/2022 until 12/22/2023 End: 01-20-2024 US CAROTID BILATERAL US CAROTID BILATERAL Radiology Routine BPPV (benign paroxysmal positional vertigo), unspecified laterality Dizzy Nausea 1 Occurrences starting 12/21/2022 until 01/20/2024 [facility] Work Phone: Comment on above: 1 Occurrences starting 12/21/2022 until 01/20/2024 [facility] Immunizations Immunization Date Immunization Notes Care Provider Felicity pastrana 03-25-2024 influenza, high dose seasonal, preservative-free Jules Haynes DO Work Phone: [facility] 12-09-2022 influenza, injectabl e, quadrivalent, contains preservative Zulay Lord [facility] Work Phone: [facility] Work Phone: 12-09-2022 influenza virus vaccine, unspecified formulation Jorge Reddy Jr., MD Work Phone: [facility] 09-25-2021 tetanus toxoid, redu demi diphtheria toxoid, and acellular pertussis vaccine, adsorbed Dr. Jules Haynes Work Phone: [facility] 11-25-2020 zoster vaccine recombinant Katherin Praisler-Wood INSTRUCTOR WATCH ASSEMBLY.SF[employer] ARCHITECT Work Phone: [facility] 06-11-2020 Covid (Moderna) Dr. Jules lopez Work Phone: [facility] 05-14-2020 Covid (Moderna) Dr. Jules lopez Work Phone: [facility] 09-21-2019 influenza virus vaccine, unspecified formulation Nando Sanchez MD Work Phone: [facility] 07-31-2019 tetanus toxoid, redu demi diphtheria toxoid, and acellular pertussis vaccine, adsorbed Katherin Praisler-Wood INSTRUCTOR WATCH ASSEMBLY.[employer] ARCHITECT Work Phone: [facility] 02-10-2019 Influenza, injectabl e, Madin Nicki Canine Kidney, preservative free, quadrivalent Dr. Jules Haynes Work Phone: [facility] 12-19-2017 influenza, injectabl e, quadrivalent, contains preservative Katherin Praisler-Wood INSTRUCTOR WATCH ASSEMBLY.[employer] ARCHITECT Work Phone: [facility] Work Phone: 12-05-2016 influenza, injectabl e, quadrivalent, contains preservative Katherin Praisler-Wood INSTRUCTOR WATCH ASSEMBLY.[employer] ARCHITECT Work Phone: [facility] Work Phone: Payers Date Payer Category Payer Private Health Insurance [id number] 2022 Unknown [id number] 2022 [facility] [id number] 2022 Unknown [id number] 2021 Private Health Insurance [id number] 2021 Self-pay [id number] 2019 Private Health Insurance [employer] OAP [id number] 2019-Present [phone] [address] [place] [address] Open Access [id number] 2019 Private Health Insurance [id number] 2017 [employer] [place] [employer] ( and others) [id number] 2017 Unknown [place]AST [id number] 2017-Present [phone] [address] [place] [address] Indemnity [id number] 2017 Unknown [id number] Private Health Insurance AETJON [id number] Unknown [id number] Unknown [id number] Unknown [id number] Unknown [id number] Unknown [id number] Unknown [id number] Social History Date Type Detail Facility Start: 03-29-2013 End: 12-11-2023 Tobacco smoking status NHIS Ex-smoker [facility] Work Phone: Start: 02-20-1970 End: 02-20-2005 History of tobacco use Current smoker [facility] Work Phone: Start: 02-20-1970 End: 02-20-2005 History of tobacco use Cigarette Smoker [facility] Work Phone: Start: 03-29-2013 End: 09-07-2022 Cigarettes smoked current (pack per day) - Reported 1.25 [facility] Start: 03-29-2013 End: 12-11-2023 Tobacco use and exposure Smokeless tobacco non-user [facility] Work Phone: Start: 07-26-2021 End: 08-12-2024 Alcohol intake Current drinker of alcohol (finding) [facility] Start: 03-18-2021 History SDOH Alcohol Frequency 5 [facility] Start: 03-18-2021 End: 11-26-2021 History SDOH Alcohol Std Drinks 2 [facility] Start: 03-18-2021 History SDOH Social Connections Phone 4 [facility] Start: 03-18-2021 End: 11-26-2021 History SDOH Social Connections Get Together 1 [facility] Start: 03-18-2021 History SDOH Social Connections Living 3 [facility] Start: 03-18-2021 History SDOH Physical Activity DPW 0 [facility] Start: 02-27-2020 Education 14 [facility] Start: 1960 Sex Assigned At Male [facility] Start: 01-29-2020 End: 12-28-2021 Exposure to SARS-CoV-2 (event) Not sure [facility] Start: 09-25-2021 End: 09-17-2022 Tobacco smoking status NDIS Unknown if ever smoked [facility] Start: 03-18-2021 End: 09-07-2022 Social connection and isolation panel [facility] Do you belong to any clubs or organizations such as orthodoxy groups, unions, fraternal or athletic groups, or school groups? No [facility] Are you now , , , , never or living with a partner? [facility] How often to you hav e a drink containing alcohol? 4 or more times a week [facility] How many standard dr inks containing alcohol do you have on a typical day? 3 or 4 [facility] How often do you hav e 6 or more drinks on 1 occasion? Less than monthly [facility] How hard is it for y ou to pay for the very basics like food, housing, medical care, and heating Not hard at all [facility] Do you feel stress - tense, restless, nervous, or anxious, or unable to sleep at night because your mind is troubled all the time - these days [OSQ] Only a little [facility] (I/We) worried adan er (my/our) food would run out before (I/we) got money to buy more. Never true [facility] Start: 03-04-2020 Gender identity Identifies as male gender (finding) [facility] Start: 03-04-2020 Sexual orientation Heterosexual (finding) [facility] Do you belong to any clubs or organizations such as orthodoxy groups, unions, [employer] or athletic groups, or school groups? Yes [facility] How many standard dr inks containing alcohol do you have on a typical day? 1 or 2 [facility] How often do you hav e 6 or more drinks on 1 occasion? Never [facility] Do you feel stress - tense, restless, nervous, or anxious, or unable to sleep at night because your mind is troubled all the time - these days [OSQ] Very much [facility] Start: 05-22-2023 Alcohol Comment 1-2 drinks per day [facility] Are you now , , , , never or living with a partner? Living with partner [facility] Goals Date Patient Goal Desired Activity /State Personal health goal Functional Status Date Assessment Result Facility 09-27-2021 Functional status Ambulates;Up ad [place] [facility] Work Phone: 09-25-2021 Functional status Activity Abili ty Independent [facility] Work Phone: 09-24-2014 Are you deaf, or do you have serious difficulty hearing No 09/24/2014 12:52 PM Carlos Guthrie LPN No [facility] 09-24-2014 Are you blind, or do you have serious difficulty seeing, even when wearing glasses No 09/24/2014 12:52 PM EDT Carlos Rizvi LPN No [facility] 09-24-2014 Do you have serious difficulty walking or climbing stairs No 09/24/2014 12:52 PM EDT Carlos Rizvi LPN No [facility] 09-24-2014 Do you have difficul ty dressing or bathing No 09/24/2014 12:52 PM EDT Carlos Rizvi LPN No [facility] 09-24-2014 Because of a physica l, mental, or emotional condition, do you have difficulty doing errands alone such as visiting a physician's office or shopping No 09/24/2014 12:52 PM EDT Carlos Rizvi LPN No [facility] Mental Status Date Assessment Result Facility 09-17-2022 Cognitive function Level Of Cons ciousness Awake;Alert;Restless [facility] Work Phone: 09-27-2021 Cognitive function Voice/Name [facility] Work Phone: 09-25-2021 Cognitive function Voice/Name [facility] Work Phone: 09-24-2014 Because of a physica l, mental, or emotional condition, do you have serious difficulty concentrating, remembering, or making decisions Yes 09/24/2014 12:52 PM EDT Carlos Rizvi LPN Yes [facility] Clinical Notes 02-28-2020 to 08-12-2024 Patient InstructionsSushant Colmenares APRN.[facility] - 08/12/2024 1:30 PM EDTTelephone Encounter - Rand Villegas MA - 08/08/2024 9:36 AM AMBARTCKenji sanders PA-C - 08/04/2024 2:41 PM EDT Note Date & Type Note Facility 08-12-2024 Instructions Sushant Colmenares APRN.CNP - 08/12/2024 2:01 PM EDT Order for urine drug screen--aim to get it done in before your follow up appointment If unable to get a sooner appointment with Dr Reddy, contact me before you run out of your 6 month supply of clonazepam so I can give you a bridge prescription for one month documented in this encounter [facility] 08-12-2024 History of Present illness Narrative Images from the original note were not included. 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 Obstructive sleep apnea (adult) (pediatric) - ICD9: 327.23, ICD10: G47.33 (primary diagnosis) Patient continues to practice positional therapy. Note that he has known moderate BOBBY exacerbated to severe when also in REM. Uncertain to what extent behaviors at night might be secondary to respiratory events as well. Pt declines PAP. Encouraging pt to keep appt with dentistry for possible oral/dental appliance. 2. High risk medication use - ICD9: V58.69, ICD10: Z79.899 Referring to Klonopin - needs yearly labs. - TOXICOLOGY SCREEN, ROUTINE URINE - BENZO CONFIRM, URINE Refills provided but will cx if invalid or inappropriate lab findings. 3. RBD (REM behavioral disorder) - ICD9: 327.42, ICD10: G47.52 Patient continues to act out at night. Reports later in night and appears associated with dreams. Already on Klonopin 1.0mg qhs which has improved symptoms. Unclear as to why, but again taking Prozac at night which can trigger RBD symptoms in about 6% of users, and thus again encouraged pt to take Prozac in AM. Will add Melatoin 5mg to Klonopin at night to see if this improves behaviors - choice to add melatonin due to shift work below. SE and ADRs d/w pt. Refills provided. 4. PLMD (periodic limb movement disorder) - ICD9: 327.51, ICD10: G47.61 Possibly exacerbated by Elavil and Prozac, neither of which has benefited sleep. Moving Prozac to AM as above. Stopping Elavil as has never resulted in any benefits. 5. 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 Likely contributing to any sleepiness. Thus, choosing to use melatonin for RBD at this time as it might also help patient adjust to sleep schedules more quickly. Jorge Reddy MD CURRENT VISIT: 08/12/2024 - Sleep Disturbances - Patient is a 64-year-old male presenting for routine f/u for clonazepam 1 mg QHS refill for RBD. Since starting clonazepam he hasn't fallen out of bed or gotten injured due to RBD. - last appt with Dr Reddy was 01/08/24 - pt stopped drinking etoh - Uses cannabis (Indica) to help with sleep (one toke) and Sativa (2-3 tokes) during the day for energy and focus. - Uses melatonin 5 mg every night and takes Prozac at night. Recommendation had been made to take prozac in the AM but he forgets to take it then, so he takes it with all his other meds at night. - Previously used amitriptyline for insomnia but is no longer on it. 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 - Reports waking up approx 4 times per night but is able to fall back asleep quickly. - Has a routine of going to bed by 20:00 and waking up at 04:00. - Plans to file for Social Security in September and eventually reduce work hours to three days a week. - reports having plenty of energy and staying active, such as sanding the deck until 21:30 on nights off. - Medication and Health - Currently on Augmentin for a dog bite. - Has an FMLA approved but feels uncomfortable using it. Clonazepam 1 mg #30 last filled 08/06/24 SLEEP APNEA Sleep apnea type : BOBBY, Most Recent Apnea-Hypopnea Index (AHI): 10, supine 22, off-supine 1.8, off-supine REM 3.4 Treatment : positional, goes from side to side, not comfortable on back [facility] Reference Range & Units 01/08/24 11:32 Amphetamines, Urine Negative Negative Barbiturates, Urine Negative Negative Benzodiazepines, Urine Negative Preliminary positive ! Cannabinoids, Urine Negative Preliminary positive ! Cocaine, Urine Negative Negative Ethanol, Urine <11 mg/dL <11 Opiates, Urine Negative Negative Oxycodone, Urine Negative Negative Phencyclidine, Urine Negative Negative 7-Aminoclonazepam, Urine <40 ng/mL 481 (H) Alpha-hydroxyalprazolam, Urine <60 ng/mL <60 Alpha-hydroxytriazolam, Urine <40 ng/mL <40 Lorazepam, Urine <40 ng/mL <40 Nordiazepam, Urine <40 ng/mL <40 Oxazepam, Urine <40 ng/mL <40 Temazepam, Urine <40 ng/mL <40 Benzo Confirm, Note See comment Specimen Validity Chromate <50 mg/L <10 Specimen Validity Creatinine 20.0 - 300.0 mg/dL 239.9 Specimen Validity Nitrites <500 mg/L 55 Specimen Validity Oxidants <200 mg/L 52 Specimen Validity PH 4.5 - 8.0 6.0 Specimen Validity Quality Specimen quality results within acceptable limits Specimen Validity Specific [place] 1.003 - 1.035 1.027 !: Data is abnormal (H): Data is abnormally high PATIENT-ENTERED QUESTIONNAIRE SLEEP SCORES: 12/11/2023 Sleep Questions Reason for visit: Difficulty falling or staying asleep or poor sleep quality Excessive daytime sleepiness Abnormal behaviors/movements during sleep On average, hours of sleep in 24 hours: 7 Accidents or near accidents due to drowsy drivin Multiple values from one day are sorted in reverse-chronological order 12/15/2022 12/11/2023 [place] Sleepiness Scale Score 13 (Excessive daytime sleepiness present) 8 (No clinically significant daytime sleepiness) 12/15/2022 12/11/2023 PROMIS CAT Sleep Disturbance PROMIS Sleep Disturbance T-Score 62 (moderate) 64 (moderate) PROMIS Sleep Disturbance Percentile 12 8 12/15/2022 12/11/2023 Insomnia Severity Index Score 19 17 12/15/2022 Restless Leg Syndrome Score 16 (Moderate symptoms) 01/09/2023 03/21/2023 06/27/2023 PHQ-9 Score 5 11 11 06/02/2023 08/30/2023 12/11/2023 PROMIS Global Health - (T-Scores - the mean of general population = 50. Five points is a clinically meaningful difference.) Physical T-Score 47.7 47.7 44.9 47.7 Mental T-Score 45.8 45.8 41.1 43.5 ALLERGIES No Known Allergies CURRENT MEDICATIONS: amoxicillin-clavulanate potassium (AUGMENTIN) 875-125 mg per tablet Take 1 tablet by mouth two times a day for 10 days. finasteride (PROSCAR) 5 mg tablet Take 1 tablet by mouth once daily. ibuprofen (MOTRIN) 800 mg tablet Take 1 tablet by mouth three times a day as needed for pain or fever (specify temp.). melatonin 5 mg chew Take 1 tablet by mouth daily at bedtime. rosuvastatin (CRESTOR) 20 mg tablet Take 1 tablet by mouth once daily. dicyclomine (BENTYL) 10 mg capsule Take 1 capsule by mouth before meals and at bedtime. For bowels/irritable bowels [START ON 09/03/2024] clonazePAM (KLONOPIN) 1 mg tablet Take 1 tablet by mouth daily at bedtime for 180 days. Patient should start on September 03, 2024. FLUoxetine (PROZAC) 40 mg capsule Take 1 capsule by mouth once daily. PHYSICAL EXAMINATION: Vital Signs: BP 94/64 Pulse 98 Resp 16 Wt 84.4 kg (186 lb) SpO2 97% BMI 25.94 kg/m PHYSICAL EXAM: General appearance: pleasant, NAD Mental status: alert and oriented, able to provide own history Constitutional: WNL Skin: No visible rashes on exposed skin Neuro: No focal deficits observed, no tremors Assessment /Plan Rbd (rem behavioral disorder) (primary encounter diagnosis) Obstructive sleep apnea Kacey Bentley is a 64 year old male with: 1. RBD (REM behavioral disorder) (G47.52) Experiences frequent nocturnal awakenings, approximately 4-5 times per night, with immediate return to sleep. Notable for nightmares and physical movements during sleep, including bed sheet disarray. Previous episodes of falling out of bed and injuries due to RBD prior to initiation of clonazepam therapy. Currently managed with clonazepam 1 mg at HS and melatonin 5 mg nightly. Recent lapse in clonazepam resulted in increased nightmares and nocturnal awakenings. Utilizes cannabis (Indica) for sleep induction and Sativa during the day for energy and focus. He stopped drinking alcohol. - Refilled clonazepam prescription and sent to [facility] pharmacy. - Discussed potential impact of cannabis use on urine drug screen results; discussed that we prefer him to avoid cannibis along with benzodiazepine. - Scheduled follow-up appointment with Dr. Reddy on 03/10/25 (we were able to move that up from 03/2025); if unable to secure an earlier appointment, patient to contact for a one-month bridge prescription before the 6-month supply is exhausted. 2. Obstructive sleep apnea (G47.33) Positional BOBBY with minimal apneic events when sleeping on the side. No significant BOBBY observed in off-supine position; more pronounced when supine. Patient naturally prefers side sleeping and reports discomfort when attempting to sleep on the back. - Continue current sleep positioning to minimize apneic events. He's not interested in PAP therapy. Sushant Colmenares APRN.[facility] documented in this encounter [facility] 08-12-2024 Note HNO ID: [id number] Author: SUSHANT COLMENARES APRN.CNP Service: ? Author Type: Nurse Practitioner Type: Progress Notes Filed: 08/12/2024 16:55 Note Text: [facility] Follow up/ Established patient visit Recording using ambient [employer] software for draft documentation of the visit was discussed with the 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 Obstructive sleep apnea (adult) (pediatric) - ICD9: 327.23, ICD10: G47.33 (primary diagnosis) Patient continues to practice positional therapy. Note that he has known moderate BOBBY exacerbated to severe when also in REM. Uncertain to what extent behaviors at night might be secondary to respiratory events as well. Pt declines PAP. Encouraging pt to keep appt with dentistry for possible oral/dental appliance. 2. High risk medication use - ICD9: V58.69, ICD10: Z79.899 Referring to Klonopin - needs yearly labs. - TOXICOLOGY SCREEN, ROUTINE URINE - BENZO CONFIRM, URINE Refills provided but will cx if invalid or inappropriate lab findings. 3. RBD (REM behavioral disorder) - ICD9: 327.42, ICD10: G47.52 Patient continues to act out at night. Reports later in night and appears associated with dreams. Already on Klonopin 1.0mg qhs which has improved symptoms. Unclear as to why, but again taking Prozac at night which can trigger RBD symptoms in about 6% of users, and thus again encouraged pt to take Prozac in AM. Will add Melatoin 5mg to Klonopin at night to see if this improves behaviors - choice to add melatonin due to shift work below. SE and ADRs d/w pt. Refills provided. 4. PLMD (periodic limb movement disorder) - ICD9: 327.51, ICD10: G47.61 Possibly exacerbated by Elavil and Prozac, neither of which has benefited sleep. Moving Prozac to AM as above. Stopping Elavil as has never resulted in any benefits. 5. 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 Likely contributing to any sleepiness. Thus, choosing to use melatonin for RBD at this time as it might also help patient adjust to sleep schedules more quickly. Jorge Reddy MD CURRENT VISIT: 08/12/2024 - Sleep Disturbances - Patient is a 64-year-old male presenting for routine f/u for clonazepam 1 mg QHS refill for RBD. Since starting clonazepam he hasn't fallen out of bed or gotten injured due to RBD. - last appt with Dr Reddy was 01/08/24 - pt stopped drinking etoh - Uses cannabis (Indica) to help with sleep (one toke) and Sativa (2-3 tokes) during the day for energy and focus. - Uses melatonin 5 mg every night and takes Prozac at night. Recommendation had been made to take prozac in the AM but he forgets to take it then, so he takes it with all his other meds at night. - Previously used amitriptyline for insomnia but is no longer on it. 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 - Reports waking up approx 4 times per night but is able to fall back asleep quickly. - Has a routine of going to bed by 20:00 and waking up at 04:00. - Plans to file for Social Security in September and eventually reduce work hours to three days a week. - reports having plenty of energy and staying active, such as sanding the deck until 21:30 on nights off. - Medication and Health - Currently on Augmentin for a dog bite. - Has an FMLA approved but feels uncomfortable using it. Clonazepam 1 mg #30 last filled 08/06/24 SLEEP APNEA Sleep apnea type : BOBBY, Most Recent Apnea-Hypopnea Index (AHI): 10, supine 22, off-supine 1.8, off-supine REM 3.4 Treatment : positional, goes from side to side, not comfortable on back Latest Reference Range AND Units 01/08/24 11:32 Amphetamines, Urine Negative Negative Barbiturates, Urine Negative Negative Benzodiazepines, Urine Negative Preliminary positive ! Cannabinoids, Urine Negative Preliminary positive ! Cocaine, Urine Negative Negative Ethanol, Urine <11 mg/dL <11 Opiates, Urine Negative Negative Oxycodone, Urine Negative Negative Phencyclidine, Urine Negative Negative 7-Aminoclonazepam, Urine <40 ng/mL 481 (H) Alpha-hydroxyalprazolam, Urine <60 ng/mL <60 Alpha-hydroxytriazolam, Urine <40 ng/mL <40 Lorazepam, Urine <40 ng/mL <40 Nordiazepam, Urine <40 ng/mL <40 Oxazepam, Urine <40 ng/mL <40 Temazepam, Urine <40 ng/mL <40 Benzo Confirm, Note See comment Specimen Validity Chromate <50 mg/L <10 Specimen Validity Creatinine 20.0 - 300.0 mg/dL 239.9 Specimen Validity Nitrites <500 mg/L 55 Specimen Validity O (more content not included)... [facility] 08-08-2024 Telephone encounter Note Looks like Neuro refilled on 08/06/24 [facility] 08-08-2024 Miscellaneous Notes Looks like Neuro refilled on 08/06/24 Images from the original note were not included. See [employer] message below: JOSE RAMON Bentley [facility] My Chart Rx Pool Good afternoon, Dr. Haynes. I hope you re had a good week. Jose Ramon needs a refill for the Klonopin precription refill and he is out of the medicatio. We cannot get into see the nurologist or his PA until mid-August and we cannot go that long without it. Thanks you Jonathan documented in this encounter [facility] 08-06-2024 Telephone encounter Note Spouse called and made 6 mo follow up after 08/12 visit , however Dr Reddy's next opening was not until 03/31/2025 [facility] 08-06-2024 Miscellaneous Notes Spouse called and made 6 mo follow up after 6/23 visit , however Dr Reddy's next opening was not until 03/31/2025 Images from the original note were not included. 30 day rx of clonazepam sent in since pt now has appointment with me. His 6 mo follow up after his July appointment with me will need to be with Dr Reddy. Sushant Colmenares APRN.SFDC ARCHITECT Pt scheduled with you on 08/12/24 at 1:30 pm. Notified to schedule 6 month f/u. Lori Toro MA Pt called and is notified of providers results and instructions. Pt voices understanding. Transferred to scheduled to set up appt with Sushant Camacho NP and Dr Reddy. Once appointments are made medication will be sent in. The patient has been identified by name and date of : Yes Caregiver verified no other encounters exist for this prescription request: Yes Caregiver confirmed with patient/requestor that no other refills are due, in the near future, with this provider at this time: Yes The last office visit in the department: 01/08/2024 Does the patient have a future office visit with this provider/department: Yes Visit date not found Requested Prescriptions Pending Prescriptions Disp Refills clonazePAM (KLONOPIN) 1 mg tablet 30 tablet 0 Sig: Take 1 tab QHS. Kimberly Vazquez RN August 05, 2024 5:25 PM Attempted to reach Jonathan, received Christina JASMINE to return call to office and speak with Triage Nurse. Also sent [employer] message regarding appt time currently held with Andie Colmenares on Monday08/12/24 at 1:30 pm. Advised pt/ to contact office and speak with Schedulers to assist in making an appt. Updated pt that in message that a prescription would be sent in once an appt is made, as well as a 6 month follow up with Dr. Reddy. Lori Toro MA I received a voice mail on my work cell phone from pt's about his medication. I assume it is about his clonazepam. Dr Reddy denied a refill last week. We can give pt a bridge refill if he schedules to see us--I have 3 openings next week. Please schedule him for follow up with me and then a 6 month follow up with Dr Reddy. I'll send in rx for 30 days as soon as he is scheduled with me. Sushant Colmenares APRN.TIMUR PDMP website checked and validated. All prescriptions have been APPROPRIATELY filled. No suspicious activity was identified. 08/05/2024 by Sushant Colmenares APRN.TIMUR documented in this encounter [facility] 08-06-2024 Telephone encounter Note Images from the original note were not included. 30 day rx of clonazepam sent in since pt now has appointment with me. His 6 mo follow up after his July appointment with me will need to be with Dr Reddy. Sushant Colmenares APRN.TIMUR [facility] 08-06-2024 Telephone encounter Note Pt scheduled with you on 08/12/24 at 1:30 pm. Notified to schedule 6 month f/u. Lori Toro MA [facility] 08-05-2024 Telephone encounter Note Pt called and is notified of providers results and instructions. Pt voices understanding. Transferred to scheduled to set up appt with Sushant Camacho NP and Dr Reddy. Once appointments are made medication will be sent in. The patient has been identified by name and date of : Yes Caregiver verified no other encounters exist for this prescription request: Yes Caregiver confirmed with patient/requestor that no other refills are due, in the near future, with this provider at this time: Yes The last office visit in the department: 01/08/2024 Does the patient have a future office visit with this provider/department: Yes Visit date not found Requested Prescriptions Pending Prescriptions Disp Refills clonazePAM (KLONOPIN) 1 mg tablet 30 tablet 0 Sig: Take 1 tab QHS. Kimberly Vazquez RN August 05, 2024 5:25 PM [facility] 08-05-2024 Telephone encounter Note Attempted to reach Jonathan, received . to return call to office and speak with Triage Nurse. Also sent [employer] message regarding appt time currently held with Andie Colmenares on Monday08/12/24 at 1:30 pm. Advised pt/ to contact office and speak with Schedulers to assist in making an appt. Updated pt that in message that a prescription would be sent in once an appt is made, as well as a 6 month follow up with [address]. Reddy. Lori Toro MA T [facility] 08-05-2024 Telephone encounter Note I received a voice mail on my work cell phone from pt's about his medication. I assume it is about his clonazepam. Dr Reddy denied a refill last week. We can give pt a bridge refill if he schedules to see us--I have 3 openings next week. Please schedule him for follow up with me and then a 6 month follow up with Dr Reddy. I'll send in rx for 30 days as soon as he is scheduled with me. Sushant Colmenares APRN.TIMUR PDMP website checked and validated. All prescriptions have been APPROPRIATELY filled. No suspicious activity was identified. 08/05/2024 by Sushant Colmenares APRN.SFDC ARCHITECT [facility] 08-04-2024 Note HNO ID: [id number] Author: KENJI MARR PA-C Service: ? Author Type: Physician Intraoperative Neuro Tech Type: Progress Notes Filed: 08/04/2024 14:47 Note Text: This note was created using [employer]. Subjective Kacey Bentley is a 64 year old male. Patient is a 64-year-old male who arrives for evaluation of redness and swelling to his left hand secondary to a dog bite injury that he sustained yesterday evening. Patient reports that he was at home trying to separate his 2 dogs while they were fighting when his [place] Ang quickly bit his radial left hand. Patient states that the dog immediately released and he sustained no direct blow or crush injury to his left hand. Patient has noted increased redness and swelling to the dorsal aspect of his left hand with pain radiating to his left index finger. Patient did not sustain any additional injury. Patient states that his tetanus immunization is current and that all of his [place] Ang's immunizations are also current. Patient has no history of diabetes and is not on anticoagulant medication. Review of Systems Skin: Positive for wound. Dog Bite Left Hand All other systems reviewed and are negative. Objective BP 137/78 Pulse 70 Resp 16 Wt 85.7 kg (188 lb 15 oz) SpO2 97% BMI 26.35 kg/m? Physical Exam Vitals and nursing note reviewed. Constitutional: Appearance: Normal appearance. He is normal weight. HENT: Head: Normocephalic and atraumatic. Nose: Nose normal. Mouth/Throat: Mouth: Mucous membranes are moist. Pharynx: Oropharynx is clear. Eyes: Extraocular Movements: Extraocular movements intact. Conjunctiva/sclera: Conjunctivae normal. Pupils: Pupils are equal, round, and reactive to light. Cardiovascular: Rate and Rhythm: Normal rate. Pulses: Normal pulses. Pulmonary: Effort: Pulmonary effort is normal. Breath sounds: Normal breath sounds. Musculoskeletal: General: Swelling, tenderness and signs of injury present. No deformity. Normal range of motion. Cervical back: Normal range of motion and neck supple. Skin: General: Skin is warm and dry. Capillary Refill: Capillary refill takes less than 2 seconds. Findings: Erythema present. No bruising. Comments: Two discrete 0.5 cm puncture wounds are noted to the radial aspect of the left hand. Wound depth appears superficial and there is coagulated blood to the sites. No bleeding, serous or purulent fluid is noted. There is no induration or fluctuance noted to the sites. There is no ecchymosis noted to the left hand and fingers. MSP to the left fingers and hand is intact. Patient demonstrates slightly decreased range of motion in flexion to the left index finger secondary to pain. Product Safety Tester is otherwise strong and equal. Neurological: General: No focal deficit present. Mental Status: He is alert and oriented to person, place, and time. Psychiatric: Mood and Affect: Mood normal. Behavior: Behavior normal. Thought Content: Thought content normal. Judgment: Judgment normal. Assessment and Plan Physical exam findings as noted above. Patient was provided with a prescription for Augmentin 875-125 mg and wound care instructions were discussed. Patient was very clearly instructed to report to an emergency department if he notes any worsening symptoms. Patient and his verbalize excellent understanding of all instructions. CLINICAL IMPRESSION: Dog Bite Left Hand ASSESSMENT/PLAN: 1. Dog bite of left hand, initial encounter - ICD9: 882.0, E906.0, ICD10: S61.452A, W54.0XXA - AMOXICILLIN 875 MG-POTASSIUM CLAVULANATE 125 MG TABLET MDM Risk of Complications, Morbidity, and/or Mortality Presenting problems: low Diagnostic procedures: low Management options: clari Marr PA-C [facility] 08-04-2024 History of Present illness Narrative This note was created using [employer]Writer. Subjective Kacey Bentley is a 64 year old male. Patient is a 64-year-old male who arrives for evaluation of redness and swelling to his left hand secondary to a dog bite injury that he sustained yesterday evening. Patient reports that he was at home trying to separate his 2 dogs while they were fighting when his [place] Ang quickly bit his radial left hand. Patient states that the dog immediately released and he sustained no direct blow or crush injury to his left hand. Patient has noted increased redness and swelling to the dorsal aspect of his left hand with pain radiating to his left index finger. Patient did not sustain any additional injury. Patient states that his tetanus immunization is current and that all of his [place] Ang's immunizations are also current. Patient has no history of diabetes and is not on anticoagulant medication. Review of Systems Skin: Positive for wound. Dog Bite Left Hand All other systems reviewed and are negative. Objective BP 137/78 Pulse 70 Resp 16 Wt 85.7 kg (188 lb 15 oz) SpO2 97% BMI 26.35 kg/m Physical Exam Vitals and nursing note reviewed. Constitutional: Appearance: Normal appearance. He is normal weight. HENT: Head: Normocephalic and atraumatic. Nose: Nose normal. Mouth/Throat: Mouth: Mucous membranes are moist. Pharynx: Oropharynx is clear. Eyes: Extraocular Movements: Extraocular movements intact. Conjunctiva/sclera: Conjunctivae normal. Pupils: Pupils are equal, round, and reactive to light. Cardiovascular: Rate and Rhythm: Normal rate. Pulses: Normal pulses. Pulmonary: Effort: Pulmonary effort is normal. Breath sounds: Normal breath sounds. Musculoskeletal: General: Swelling, tenderness and signs of injury present. No deformity. Normal range of motion. Cervical back: Normal range of motion and neck supple. Skin: General: Skin is warm and dry. Capillary Refill: Capillary refill takes less than 2 seconds. Findings: Erythema present. No bruising. Comments: Two discrete 0.5 cm puncture wounds are noted to the radial aspect of the left hand. Wound depth appears superficial and there is coagulated blood to the sites. No bleeding, serous or purulent fluid is noted. There is no induration or fluctuance noted to the sites. There is no ecchymosis noted to the left hand and fingers. MSP to the left fingers and hand is intact. Patient demonstrates slightly decreased range of motion in flexion to the left index finger secondary to pain. Product Safety Tester is otherwise strong and equal. Neurological: General: No focal deficit present. Mental Status: He is alert and oriented to person, place, and time. Psychiatric: Mood and Affect: Mood normal. Behavior: Behavior normal. Thought Content: Thought content normal. Judgment: Judgment normal. Assessment and Plan Physical exam findings as noted above. Patient was provided with a prescription for Augmentin 875-125 mg and wound care instructions were discussed. Patient was very clearly instructed to report to an emergency department if he notes any worsening symptoms. Patient and his verbalize excellent understanding of all instructions. CLINICAL IMPRESSION: Dog Bite Left Hand ASSESSMENT/PLAN: 1. Dog bite of left hand, initial encounter - ICD9: 882.0, E906.0, ICD10: S61.452A, W54.0XXA - AMOXICILLIN 875 MG-POTASSIUM CLAVULANATE 125 MG TABLET MDM Risk of Complications, Morbidity, and/or Mortality Presenting problems: low Diagnostic procedures: low Management options: clari Marr PA-C documented in this encounter [facility] 08-02-2024 Telephone encounter Note Images from the original note were not included. See [employer] message below: JOSE RAMON Bentley [facility] My Chart Rx Pool Good afternoon, Dr. Haynes. I hope you re had a good week. Jose Ramon needs a refill for the Klonopin precription refill and he is out of the medicatio. We cannot get into see the nurologist or his PA until mid-August and we cannot go that long without it. Thanks you Jonathan [facility] 08-02-2024 Telephone encounter Note See refill request August 02, 2024 [facility] 08-02-2024 Miscellaneous Notes See refill request August 02, 2024 documented in this encounter [facility] 08-02-2024 Telephone encounter Note Bridge refill denied. TC to patient to provider scheduling number to see if sooner available with any provider. Patient asking for / appointment to be cancelled. Done. ENRIQUE Funk [facility] 08-02-2024 Miscellaneous Notes Bridge refill denied. TC to patient to provider scheduling number to see if sooner available with any provider. Patient asking for 08/26 appointment to be cancelled. Done. ENRIQUE Funk Prescription Refill Information The patient has been identified by name and date of : Yes Caregiver verified no other encounters exist for this prescription request: Yes Caregiver confirmed with patient/requestor that no other refills are due, in the near future, with this provider at this time: Yes The last office visit in the department: 01/08/[address] Reddy Does the patient have a future office visit with this provider/department: No, TC to patient who is now scheduled for follow up with Jose Colmenares 08/26 in person. Please advise if willing to fill bridge to last until this appointment. Requested Prescriptions Pending Prescriptions Disp Refills clonazePAM (KLONOPIN) 1 mg tablet [Pharmacy Med Name: CLONAZEPAM 1 MG TABLET] 30 tablet 1 Sig: TAKE 1 TABLET BY MOUTH EVERY NIGHT AT BEDTIME. PATIENT SHOULD START ON MAY 31, 2024. ENRIQUE Funk August 02, 2024 9:05 AM documented in this encounter [facility] 08-02-2024 Telephone encounter Note Prescription Refill Information The patient has been identified by name and date of : Yes Caregiver verified no other encounters exist for this prescription request: Yes Caregiver confirmed with patient/requestor that no other refills are due, in the near future, with this provider at this time: Yes The last office visit in the department: 01/08/[address] Reddy Does the patient have a future office visit with this provider/department: No, TC to patient who is now scheduled for follow up with Jose LakhaniKar in person. Please advise if willing to fill bridge to last until this appointment. Requested Prescriptions Pending Prescriptions Disp Refills clonazePAM (KLONOPIN) 1 mg tablet [Pharmacy Med Name: CLONAZEPAM 1 MG TABLET] 30 tablet 1 Sig: TAKE 1 TABLET BY MOUTH EVERY NIGHT AT BEDTIME. PATIENT SHOULD START ON MAY 31, 2024. ENRIQUE Funk August 02, 2024 9:05 AM [facility] 05-13-2024 Telephone encounter Note Prescription Refill Information The patient has been identified by name and date of : Yes Caregiver verified no other encounters exist for this prescription request: Yes Caregiver confirmed with patient/requestor that no other refills are due, in the near future, with this provider at this time: Yes The last office visit in the department: 03/25/24 Does the patient have a future office visit with this provider/department: No Requested Prescriptions Pending Prescriptions Disp Refills finasteride (PROSCAR) 5 mg tablet 90 tablet 3 Sig: Take 1 tablet by mouth once daily. Hanh Daley LPN May 13, 2024 8:42 AM [facility] 05-13-2024 Miscellaneous Notes Prescription Refill Information The patient has been identified by name and date of : Yes Caregiver verified no other encounters exist for this prescription request: Yes Caregiver confirmed with patient/requestor that no other refills are due, in the near future, with this provider at this time: Yes The last office visit in the department: 03/25/24 Does the patient have a future office visit with this provider/department: No Requested Prescriptions Pending Prescriptions Disp Refills finasteride (PROSCAR) 5 mg tablet 90 tablet 3 Sig: Take 1 tablet by mouth once daily. Hanh Daley LPN May 13, 2024 8:42 AM documented in this encounter [facility] 05-13-2024 Telephone encounter Note Prescription Refill Information The patient has been identified by name and date of : Yes Caregiver verified no other encounters exist for this prescription request: Yes Caregiver confirmed with patient/requestor that no other refills are due, in the near future, with this provider at this time: Yes The last office visit in the department: 03/25/24 Does the patient have a future office visit with this provider/department: No Requested Prescriptions Pending Prescriptions Disp Refills FLUoxetine (PROZAC) 40 mg capsule 90 capsule 0 Sig: Take 1 capsule by mouth once daily. Hanh Daley LPN May 13, 2024 8:41 AM [facility] 05-13-2024 Miscellaneous Notes Prescription Refill Information The patient has been identified by name and date of : Yes Caregiver verified no other encounters exist for this prescription request: Yes Caregiver confirmed with patient/requestor that no other refills are due, in the near future, with this provider at this time: Yes The last office visit in the department: 03/25/24 Does the patient have a future office visit with this provider/department: No Requested Prescriptions Pending Prescriptions Disp Refills FLUoxetine (PROZAC) 40 mg capsule 90 capsule 0 Sig: Take 1 capsule by mouth once daily. Hanh Daley LPN May 13, 2024 8:41 AM documented in this encounter [facility] 04-09-2024 Telephone encounter Note Pt notified. Rand Villegas MA [facility] 04-09-2024 Miscellaneous Notes Pt notified. Rand Villegas MA Okay for rx as below Jules Haynes, The following approved medication requests have been transmitted electronically. Requested Prescriptions Signed Prescriptions Disp Refills ibuprofen (MOTRIN) 800 mg tablet 100 tablet 1 Sig: Take 1 tablet by mouth three times a day as needed for pain or fever (specify temp.). Authorizing Provider: JULES HAYNES DO Copied from phone encounter. Good morning. Jose Ramon hurt his shoulder muscle and we have tried advil and Tylenol but it does t work as well as my prescription of ibuprofen 800mg I had. Could he please have a prescription sent to [facility] in [place]. Thank you. Jonathan. documented in this encounter [facility] 04-09-2024 Telephone encounter Note Okay for rx as below Jules Haynes DO The following approved medication requests have been transmitted electronically. Requested Prescriptions Signed Prescriptions Disp Refills ibuprofen (MOTRIN) 800 mg tablet 100 tablet 1 Sig: Take 1 tablet by mouth three times a day as needed for pain or fever (specify temp.). Authorizing Provider: JULES HAYNES DO [facility] 04-08-2024 Telephone encounter Note Copied from phone encounter. Good morning. Jose Ramon hurt his shoulder muscle and we have tried advil and Tylenol but it does t work as well as my prescription of ibuprofen 800mg I had. Could he please have a prescription sent to [facility] in [place]. Thank you. Jonathan. [facility] 04-08-2024 Telephone encounter Note Turned into phone encounter for pt. [facility] 04-08-2024 Miscellaneous Notes Turned into phone encounter for pt. documented in this encounter [facility] 04-08-2024 Telephone encounter Note Prescription Refill Information The patient has been identified by name and date of : Yes Caregiver verified no other encounters exist for this prescription request: Yes The last office visit in the department: 01/08/24 Assessment and Plan: ASSESSMENT/PLAN: 1. Obstructive sleep apnea (adult) (pediatric) - ICD9: 327.23, ICD10: G47.33 (primary diagnosis) Patient continues to practice positional therapy. Note that he has known moderate BOBBY exacerbated to severe when also in REM. Uncertain to what extent behaviors at night might be secondary to respiratory events as well. Pt declines PAP. Encouraging pt to keep appt with dentistry for possible oral/dental appliance. 2. High risk medication use - ICD9: V58.69, ICD10: Z79.899 Referring to Klonopin - needs yearly labs. - TOXICOLOGY SCREEN, ROUTINE URINE - BENZO CONFIRM, URINE Refills provided but will cx if invalid or inappropriate lab findings. 3. RBD (REM behavioral disorder) - ICD9: 327.42, ICD10: G47.52 Patient continues to act out at night. Reports later in night and appears associated with dreams. Already on Klonopin 1.0mg qhs which has improved symptoms. Unclear as to why, but again taking Prozac at night which can trigger RBD symptoms in about 6% of users, and thus again encouraged pt to take Prozac in AM. Will add Melatoin 5mg to Klonopin at night to see if this improves behaviors - choice to add melatonin due to shift work below. SE and ADRs d/w pt. Refills provided. 4. PLMD (periodic limb movement disorder) - ICD9: 327.51, ICD10: G47.61 Possibly exacerbated by Elavil and Prozac, neither of which has benefited sleep. Moving Prozac to AM as above. Stopping Elavil as has never resulted in any benefits. 5. 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 Likely contributing to any sleepiness. Thus, choosing to use melatonin for RBD at this time as it might also help patient adjust to sleep schedules more quickly. Jorge Reddy MD Does the patient have a future office visit with this provider/department: No Requested Prescriptions Pending Prescriptions Disp Refills melatonin 5 mg chew 30 tablet 5 Sig: Take 1 tablet by mouth daily at bedtime. Lilo Chaney LPN April 08, 2024 9:40 AM [facility] 04-08-2024 Miscellaneous Notes Prescription Refill Information The patient has been identified by name and date of : Yes Caregiver verified no other encounters exist for this prescription request: Yes The last office visit in the department: 01/08/24 Assessment and Plan: ASSESSMENT/PLAN: 1. Obstructive sleep apnea (adult) (pediatric) - ICD9: 327.23, ICD10: G47.33 (primary diagnosis) Patient continues to practice positional therapy. Note that he has known moderate BOBBY exacerbated to severe when also in REM. Uncertain to what extent behaviors at night might be secondary to respiratory events as well. Pt declines PAP. Encouraging pt to keep appt with dentistry for possible oral/dental appliance. 2. High risk medication use - ICD9: V58.69, ICD10: Z79.899 Referring to Klonopin - needs yearly labs. - TOXICOLOGY SCREEN, ROUTINE URINE - BENZO CONFIRM, URINE Refills provided but will cx if invalid or inappropriate lab findings. 3. RBD (REM behavioral disorder) - ICD9: 327.42, ICD10: G47.52 Patient continues to act out at night. Reports later in night and appears associated with dreams. Already on Klonopin 1.0mg qhs which has improved symptoms. Unclear as to why, but again taking Prozac at night which can trigger RBD symptoms in about 6% of users, and thus again encouraged pt to take Prozac in AM. Will add Melatoin 5mg to Klonopin at night to see if this improves behaviors - choice to add melatonin due to shift work below. SE and ADRs d/w pt. Refills provided. 4. PLMD (periodic limb movement disorder) - ICD9: 327.51, ICD10: G47.61 Possibly exacerbated by Elavil and Prozac, neither of which has benefited sleep. Moving Prozac to AM as above. Stopping Elavil as has never resulted in any benefits. 5. 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 Likely contributing to any sleepiness. Thus, choosing to use melatonin for RBD at this time as it might also help patient adjust to sleep schedules more quickly. Jorge Reddy MD Does the patient have a future office visit with this provider/department: No Requested Prescriptions Pending Prescriptions Disp Refills melatonin 5 mg chew 30 tablet 5 Sig: Take 1 tablet by mouth daily at bedtime. Lilo Chaney LPN April 08, 2024 9:40 AM documented in this encounter [facility] 03-25-2024 Note HNO ID: [id number] Author: JULES HAYNES, DO Service: ? Author Type: Physician Type: Progress Notes Filed: 03/25/2024 09:52 Note Text: CC: Kacey Bentley is a 63 year old male who presents to the office for follow up HPI: Long standing issues with BOBBY/CPAP use and chronic insomnia, as well as his cardiac history. 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 Difficulty with focusing, concentrating and feeling very tired. No SI or HI. Has a lot of support from his and family. Is doing his best to manage but is very concerned about his job risk due to these concerns. PAST MEDICAL HISTORY Diagnosis Date Arthritis Colon polyps 03/26/2010 Dr. Salty Rodrigues, by c scope Depression Dyslipidemia Hyperlipemia BOBBY (obstructive sleep apnea) CPAP Personal history of colonic polyps 03/10/2016 tubular adenoma Sleep apnea PAST SURGICAL HISTORY Procedure Laterality Date CARPAL TUNNEL 2012 both wrists COLONOSCOPY 2010 COLONOSCOPY GEN ANES 07/09/2020 Repeat in 5 years EGD 07/10/2020 PAST SURGICAL HISTORY OF Bone tumor age 14 PAST SURGICAL HISTORY OF deviated septum repair PROCEDURE RM-COLONSCOPY W/BX 11/2017 Current Outpatient Medications Medication Sig melatonin 5 mg chew Take 1 tablet by mouth daily at bedtime. finasteride (PROSCAR) 5 mg tablet Take 1 tablet by mouth once daily. clonazePAM (KLONOPIN) 1 mg tablet Take 1 tab QHS. FLUoxetine (PROZAC) 40 mg capsule Take 1 capsule by mouth once daily. rosuvastatin (CRESTOR) 20 mg tablet Take 1 tablet by mouth once daily. dicyclomine (BENTYL) 10 mg capsule Take 1 capsule by mouth before meals and at bedtime. For bowels/irritable bowels omeprazole (PRILOSEC) 20 mg capsule Take 1 capsule by mouth once daily. 30 min before breakfast No current facility-administered medications for this visit. ALLERGIES No Known Allergies Social History Tobacco Use Smoking status: Former Current packs/day: 0.00 Average packs/day: 1.3 packs/day for 35.0 years (43.8 ttl pk-yrs) Types: Cigarettes Start date: 02/20/1970 Quit date: 02/20/2005 Years since quittin.1 Smokeless tobacco: Never Vaping Use Vaping status: Never Used Substance Use Topics Alcohol use: Yes Alcohol/week: 1.3 - 2.6 standard drinks of alcohol Types: 1 - 2 Mixed Drinks per week Comment: 1-2 drinks per day Drug use: Yes Frequency: 7.0 times per week Types: Marijuana Comment: uses daily ROS See HPI PE: BP 124/80 Pulse 76 Temp (Src) 97.6 (Temporal) Resp 16 Wt 199 lb (90.3kg) Gen: AANDOX3, NAD, non-toxic appearing HEENT: PERRLA, EOMs intact b/l, nares without drainage, pharynx without erythema, exudate, lesions, or drainage. Uvula midline. Neck: No LAD, no thyromegaly, no meningismus. CV: RRR, no murmur Lungs: CTA b/l, no wheezing Skin: No rashes, lesions, or wounds on exposed skin. ASSESSMENT/PLAN: 1. 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 Need for job coverage for these concerns. Sleep is being managed by Neurologist 2. Need for influenza vaccination - ICD9: V04.81, ICD10: Z23 - INFLUENZA VACCINE, PRSV FREE, AGE 65+ YR, HIGH DOSE, TRIVALENT (FLUZONE HIGH-DOSE) 3. 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 Need for job coverage for these concerns. Sleep is being managed by Neurologist 4. 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 Need for job coverage for these concerns. Sleep is being managed by Neurologist 5. 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 Need for job coverage for these concerns. Sleep is being managed by Neurologist 6. PLMD (periodic limb movement disorder) - ICD9: 327.51, ICD10: G47.61 Okay to fill out FMLA papers for patient as he is at high risk to be overwhelmed, lack of sleep contributing to his symptoms with his work shifts/sched (more content not included)... [facility] 03-25-2024 History of Present illness Narrative CC: Kacey Bentley is a 63 year old male who presents to the office for follow up HPI: Long standing issues with BOBBY/CPAP use and chronic insomnia, as well as his cardiac history. 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 Difficulty with focusing, concentrating and feeling very tired. No SI or HI. Has a lot of support from his and family. Is doing his best to manage but is very concerned about his job risk due to these concerns. PAST MEDICAL HISTORY Diagnosis Date Arthritis Colon polyps 03/26/2010 Dr. Salty Rodrigues, by c scope Depression Dyslipidemia Hyperlipemia BOBBY (obstructive sleep apnea) CPAP Personal history of colonic polyps 03/10/2016 tubular adenoma Sleep apnea PAST SURGICAL HISTORY Procedure Laterality Date CARPAL TUNNEL 2012 both wrists COLONOSCOPY 2010 COLONOSCOPY GEN ANES 07/09/2020 Repeat in 5 years EGD 07/10/2020 PAST SURGICAL HISTORY OF Bone tumor age 14 PAST SURGICAL HISTORY OF deviated septum repair PROCEDURE RM-COLONSCOPY W/BX 11/2017 Current Outpatient Medications Medication Sig melatonin 5 mg chew Take 1 tablet by mouth daily at bedtime. finasteride (PROSCAR) 5 mg tablet Take 1 tablet by mouth once daily. clonazePAM (KLONOPIN) 1 mg tablet Take 1 tab QHS. FLUoxetine (PROZAC) 40 mg capsule Take 1 capsule by mouth once daily. rosuvastatin (CRESTOR) 20 mg tablet Take 1 tablet by mouth once daily. dicyclomine (BENTYL) 10 mg capsule Take 1 capsule by mouth before meals and at bedtime. For bowels/irritable bowels omeprazole (PRILOSEC) 20 mg capsule Take 1 capsule by mouth once daily. 30 min before breakfast No current facility-administered medications for this visit. ALLERGIES No Known Allergies Social History Tobacco Use Smoking status: Former Current packs/day: 0.00 Average packs/day: 1.3 packs/day for 35.0 years (43.8 ttl pk-yrs) Types: Cigarettes Start date: 02/20/1970 Quit date: 02/20/2005 Years since quittin.1 Smokeless tobacco: Never Vaping Use Vaping status: Never Used Substance Use Topics Alcohol use: Yes Alcohol/week: 1.3 - 2.6 standard drinks of alcohol Types: 1 - 2 Mixed Drinks per week Comment: 1-2 drinks per day Drug use: Yes Frequency: 7.0 times per week Types: Marijuana Comment: uses daily ROS See HPI PE: BP 124/80 Pulse 76 Temp (Src) 97.6 (Temporal) Resp 16 Wt 199 lb (90.3kg) Gen: A&OX3, NAD, non-toxic appearing HEENT: PERRLA, EOMs intact b/l, nares without drainage, pharynx without erythema, exudate, lesions, or drainage. Uvula midline. Neck: No LAD, no thyromegaly, no meningismus. CV: RRR, no murmur Lungs: CTA b/l, no wheezing Skin: No rashes, lesions, or wounds on exposed skin. ASSESSMENT/PLAN: 1. 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 Need for job coverage for these concerns. Sleep is being managed by Neurologist 2. Need for influenza vaccination - ICD9: V04.81, ICD10: Z23 - INFLUENZA VACCINE, PRSV FREE, AGE 65+ YR, HIGH DOSE, TRIVALENT (FLUZONE HIGH-DOSE) 3. 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 Need for job coverage for these concerns. Sleep is being managed by Neurologist 4. 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 Need for job coverage for these concerns. Sleep is being managed by Neurologist 5. 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 Need for job coverage for these concerns. Sleep is being managed by Neurologist 6. 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 Need for job coverage for these concerns. Sleep is being managed by Neurologist Jules Haynes DO I spent 35 minutes in the visit, with more than 50% of the total [id number] time of the visit in counseling / coordination of care. Return if no improvement. Follow up with Jules Haynes DO. To ER if develops chest pain, shortness of breath. Discussed risks, benefits, alternatives, and potential side effects of medications. Patient/Guardian expressed understanding and agreed with the plan. See patient instructions. Jules Haynes DO [address] [place] [address] documented in this encounter [facility] 02-19-2024 Telephone encounter Note Prescription Refill Information The patient has been identified by name and date of : Yes Caregiver verified no other encounters exist for this prescription request: Yes Caregiver confirmed with patient/requestor that no other refills are due, in the near future, with this provider at this time: Yes The last office visit in the department: WN ASSESSMENT/PLAN: 1. Obstructive sleep apnea (adult) (pediatric) - ICD9: 327.23, ICD10: G47.33 (primary diagnosis) Patient continues to practice positional therapy. Note that he has known moderate BOBBY exacerbated to severe when also in REM. Uncertain to what extent behaviors at night might be secondary to respiratory events as well. Pt declines PAP. Encouraging pt to keep appt with dentistry for possible oral/dental appliance. 2. High risk medication use - ICD9: V58.69, ICD10: Z79.899 Referring to Klonopin - needs yearly labs. - TOXICOLOGY SCREEN, ROUTINE URINE - BENZO CONFIRM, URINE Refills provided but will cx if invalid or inappropriate lab findings. 3. RBD (REM behavioral disorder) - ICD9: 327.42, ICD10: G47.52 Patient continues to act out at night. Reports later in night and appears associated with dreams. Already on Klonopin 1.0mg qhs which has improved symptoms. Unclear as to why, but again taking Prozac at night which can trigger RBD symptoms in about 6% of users, and thus again encouraged pt to take Prozac in AM. Will add Melatoin 5mg to Klonopin at night to see if this improves behaviors - choice to add melatonin due to shift work below. SE and ADRs d/w pt. Refills provided. 4. PLMD (periodic limb movement disorder) - ICD9: 327.51, ICD10: G47.61 Possibly exacerbated by Elavil and Prozac, neither of which has benefited sleep. Moving Prozac to AM as above. Stopping Elavil as has never resulted in any benefits. 5. 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 Likely contributing to any sleepiness. Thus, choosing to use melatonin for RBD at this time as it might also help patient adjust to sleep schedules more quickly. Does the patient have a future office visit with this provider/department: No Requested Prescriptions Pending Prescriptions Disp Refills clonazePAM (KLONOPIN) 1 mg tablet 30 tablet 2 Sig: Take 1 tab QHS. ENRIQUE Funk February 19, 2024 3:48 PM [facility] 02-19-2024 Miscellaneous Notes Prescription Refill Information The patient has been identified by name and date of : Yes Caregiver verified no other encounters exist for this prescription request: Yes Caregiver confirmed with patient/requestor that no other refills are due, in the near future, with this provider at this time: Yes The last office visit in the department: WJN ASSESSMENT/PLAN: 1. Obstructive sleep apnea (adult) (pediatric) - ICD9: 327.23, ICD10: G47.33 (primary diagnosis) Patient continues to practice positional therapy. Note that he has known moderate BOBBY exacerbated to severe when also in REM. Uncertain to what extent behaviors at night might be secondary to respiratory events as well. Pt declines PAP. Encouraging pt to keep appt with dentistry for possible oral/dental appliance. 2. High risk medication use - ICD9: V58.69, ICD10: Z79.899 Referring to Klonopin - needs yearly labs. - TOXICOLOGY SCREEN, ROUTINE URINE - BENZO CONFIRM, URINE Refills provided but will cx if invalid or inappropriate lab findings. 3. RBD (REM behavioral disorder) - ICD9: 327.42, ICD10: G47.52 Patient continues to act out at night. Reports later in night and appears associated with dreams. Already on Klonopin 1.0mg qhs which has improved symptoms. Unclear as to why, but again taking Prozac at night which can trigger RBD symptoms in about 6% of users, and thus again encouraged pt to take Prozac in AM. Will add Melatoin 5mg to Klonopin at night to see if this improves behaviors - choice to add melatonin due to shift work below. SE and ADRs d/w pt. Refills provided. 4. PLMD (periodic limb movement disorder) - ICD9: 327.51, ICD10: G47.61 Possibly exacerbated by Elavil and Prozac, neither of which has benefited sleep. Moving Prozac to AM as above. Stopping Elavil as has never resulted in any benefits. 5. 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 Likely contributing to any sleepiness. Thus, choosing to use melatonin for RBD at this time as it might also help patient adjust to sleep schedules more quickly. Does the patient have a future office visit with this provider/department: No Requested Prescriptions Pending Prescriptions Disp Refills clonazePAM (KLONOPIN) 1 mg tablet 30 tablet 2 Sig: Take 1 tab QHS. ENRIQUE Funk February 19, 2024 3:48 PM documented in this encounter [facility] 02-12-2024 Telephone encounter Note Prescription Refill Information The patient has been identified by name and date of : Yes Caregiver verified no other encounters exist for this prescription request: Yes The last office visit in the department: 01/08/24 [facility]JN ASSESSMENT/PLAN: 1. Obstructive sleep apnea (adult) (pediatric) - ICD9: 327.23, ICD10: G47.33 (primary diagnosis) Patient continues to practice positional therapy. Note that he has known moderate BOBBY exacerbated to severe when also in REM. Uncertain to what extent behaviors at night might be secondary to respiratory events as well. Pt declines PAP. Encouraging pt to keep appt with dentistry for possible oral/dental appliance. 2. High risk medication use - ICD9: V58.69, ICD10: Z79.899 Referring to Klonopin - needs yearly labs. - TOXICOLOGY SCREEN, ROUTINE URINE - BENZO CONFIRM, URINE Refills provided but will cx if invalid or inappropriate lab findings. 3. RBD (REM behavioral disorder) - ICD9: 327.42, ICD10: G47.52 Patient continues to act out at night. Reports later in night and appears associated with dreams. Already on Klonopin 1.0mg qhs which has improved symptoms. Unclear as to why, but again taking Prozac at night which can trigger RBD symptoms in about 6% of users, and thus again encouraged pt to take Prozac in AM. Will add Melatoin 5mg to Klonopin at night to see if this improves behaviors - choice to add melatonin due to shift work below. SE and ADRs d/w pt. Refills provided. 4. PLMD (periodic limb movement disorder) - ICD9: 327.51, ICD10: G47.61 Possibly exacerbated by Elavil and Prozac, neither of which has benefited sleep. Moving Prozac to AM as above. Stopping Elavil as has never resulted in any benefits. 5. 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 Likely contributing to any sleepiness. Thus, choosing to use melatonin for RBD at this time as it might also help patient adjust to sleep schedules more quickly. Jorge Reddy MD Does the patient have a future office visit with this provider/department: No Requested Prescriptions Pending Prescriptions Disp Refills melatonin 5 mg chew 30 tablet 5 Sig: Take 1 tablet by mouth daily at bedtime. Lilo Chaney LPN February 12, 2024 3:55 PM [facility] 02-12-2024 Miscellaneous Notes Prescription Refill Information The patient has been identified by name and date of : Yes Caregiver verified no other encounters exist for this prescription request: Yes The last office visit in the department: 01/08/24 WJN ASSESSMENT/PLAN: 1. Obstructive sleep apnea (adult) (pediatric) - ICD9: 327.23, ICD10: G47.33 (primary diagnosis) Patient continues to practice positional therapy. Note that he has known moderate BOBBY exacerbated to severe when also in REM. Uncertain to what extent behaviors at night might be secondary to respiratory events as well. Pt declines PAP. Encouraging pt to keep appt with dentistry for possible oral/dental appliance. 2. High risk medication use - ICD9: V58.69, ICD10: Z79.899 Referring to Klonopin - needs yearly labs. - TOXICOLOGY SCREEN, ROUTINE URINE - BENZO CONFIRM, URINE Refills provided but will cx if invalid or inappropriate lab findings. 3. RBD (REM behavioral disorder) - ICD9: 327.42, ICD10: G47.52 Patient continues to act out at night. Reports later in night and appears associated with dreams. Already on Klonopin 1.0mg qhs which has improved symptoms. Unclear as to why, but again taking Prozac at night which can trigger RBD symptoms in about 6% of users, and thus again encouraged pt to take Prozac in AM. Will add Melatoin 5mg to Klonopin at night to see if this improves behaviors - choice to add melatonin due to shift work below. SE and ADRs d/w pt. Refills provided. 4. PLMD (periodic limb movement disorder) - ICD9: 327.51, ICD10: G47.61 Possibly exacerbated by Elavil and Prozac, neither of which has benefited sleep. Moving Prozac to AM as above. Stopping Elavil as has never resulted in any benefits. 5. 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 Likely contributing to any sleepiness. Thus, choosing to use melatonin for RBD at this time as it might also help patient adjust to sleep schedules more quickly. Jorge Reddy MD Does the patient have a future office visit with this provider/department: No Requested Prescriptions Pending Prescriptions Disp Refills melatonin 5 mg chew 30 tablet 5 Sig: Take 1 tablet by mouth daily at bedtime. Lilo Chaney LPN February 12, 2024 3:55 PM documented in this encounter [facility] 01-11-2024 Telephone encounter Note The patient has been identified by name and date of : Yes Caregiver verified no other encounters exist for this prescription request: Yes Caregiver confirmed with patient/requestor that no other refills are due, in the near future, with this provider at this time: Yes The last office visit in the department: 07/31/2023 Does the patient have a future office visit with this provider/department: No Visit date not found Requested Prescriptions Pending Prescriptions Disp Refills finasteride (PROSCAR) 5 mg tablet 90 tablet 3 Sig: Take 1 tablet by mouth once daily. Laura Sellers LPN January 11, 2024 11:41 AM [facility] 01-11-2024 Miscellaneous Notes The patient has been identified by name and date of : Yes Caregiver verified no other encounters exist for this prescription request: Yes Caregiver confirmed with patient/requestor that no other refills are due, in the near future, with this provider at this time: Yes The last office visit in the department: 07/31/2023 Does the patient have a future office visit with this provider/department: No Visit date not found Requested Prescriptions Pending Prescriptions Disp Refills finasteride (PROSCAR) 5 mg tablet 90 tablet 3 Sig: Take 1 tablet by mouth once daily. Laura Sellers LPN January 11, 2024 11:41 AM documented in this encounter [facility] 01-08-2024 Instructions Jorge Reddy Jr., MD - 01/08/2024 11:15 AM EST Your most recent body mass index (BMI) that we have on record is 28.4 kg/m2. Obstructive sleep apnea (BOBBY) worsens with an increase in weight; reduction in weight may improve or resolve your BOBBY. If you are not already seeking treatment, there are resources available at the [facility] such as a nutrition consultation or referral to weight management programs at our [facility]. Please let us know if we can assist with a referral. Regarding sleep apnea: Continue to sleep on side. Regarding medications: Discontinue Amitriptyline (Elavil). Continue Klonopin 1.0mg prior to bedtime. Start Melatonin 5mg at bedtime. Move Prozac to the AM or when you wake up. If you are to drink ETOH, try to have glass 4-5 hours prior to bedtime. documented in this encounter [facility] 01-08-2024 Note HNO ID: [id number] Author: JORGE REDDY JR, MD Service: ? Author Type: Physician Type: Progress Notes Filed: 01/08/2024 18:26 Note Text: ESTABLISHED PATIENT VISIT CHIEF COMPLAINT: Follow Up HISTORY OF PRESENT ILLNESS: Kacey Bentley is a 63 year old male, BMI 28.4 kg/m2 with a PMH significant for and per last office visit of 12/11/23: Rbd (rem behavioral disorder) (primary encounter diagnosis) Kacey Bentley is a 63 year old male with RBD, insomnia, PLMD Clonazepam 1 mg dose is effective for his RBD PLAN: Has 01/15/[address] Reddy, must keep that appt Will have him do UTOX then since he has been off the med for a week now Rx for clonazepam 1 mg #30 with 1 RF so he has enough until he sees Dr Reddy Cautioned to avoid etoh with clonazepam Per my last visit with pt on 08/30/23: 1. BOBBY (obstructive sleep apnea) - ICD9: 327.23, ICD10: G47.33 (primary diagnosis) Patient with known positional BOBBY (moderate supine and normal off-supine). While currently treating with positional therapy, attempting to get in with dentistry for oral appliance. Will reach out to dentistry to try and get pt sooner appointment. Besides BOBBY disrupting sleep, untreated BOBBY could also exacerbate parasomnias or RBD type behaviors. Advised pt not to drive or operate heavy machinery if sleepy. 2. PLMD (periodic limb movement disorder) - ICD9: 327.51, ICD10: G47.61 No RLS symptoms but leg kicking can occur during night. Prozac moved to AM. Some decrease in movements since on Klonopin. No ETOH prior to bed. Will increase Klonopin as below. 3. RBD (REM behavioral disorder) - ICD9: 327.42, ICD10: G47.52 History remains suggestive of RBD. Pt with rare cannabis use and while has daily glass of ETOH has moved to earlier in day with meal. Other exacerbating factors including BOBBY are being evaluated and treated and SSRI moved to AM. Still on Elavil with dose recently increased. I was considering having patient stop, but for now, will have patient decrease dose back to 10mg nightly. As symptoms have improved with Klonopin use, will increase dose from 0.5mg to 1.0mg prior to bedtime. SE and ADRs d/w pt. Advised pt of interactions of benzos with ETOH as well as possible effects benzos might have on BOBBY. He expresses understanding. D/w pt means of safe guarding house to avoid injury. Follow up in person with Saul Colmenares CNP in 4 weeks in [place]. At that time will need UDS and urine benzo confirm (annual lab). Would also try to stop Amitriptyline at that time if no contraindications. Patient reportedly having less nightmares. Taking Klonopin 1.0mg - last took last night. Still acting dreams out about once per week. Pt feeling tired in the AM. Still on Elavil even though no influence on symptoms. Still with ETOH use - 1 drink but not nightly - if does still about 2 hours prior to bedtime. 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 Working nights 5PM to 5AM (opposite prior shift). However will then have a week that he has to work 5AM to 5PM. Likely contributing to sleepiness. Moving during the night but no longer kicking during the night. He is again taking Prozac at night. Sleeping on side - states no BOBBY symptoms. No weight changes since sleep study. Pt again declines PAP therapy. Yet to see dentist regarding oral appliance (scheduled for 04/2024). REVIEW OF SYSTEMS GENERAL:No weight loss, malaise or fevers. HEENT:Negative for frequent or significant headaches, No changes in hearing or vision, no nose bleeds or other nasal problems NECK:Negative for lumps, goiter, pain and significant neck swelling RESPIRATORY: Negative for cough, wheezing or shortness of breath. CARDIOVASCULAR: Negative for chest pain, leg swelling or palpitations. GASTROINTESTINAL: Negative for abdominal discomfort, blood in stools or black stools or change in bowel habits GENITOURINARY: No history of dysuria, frequency or incontinence MUSCULOSKELETAL: Negative for joint pain or swelling, back pain or muscle pain. NEUROLOGIC:Negative for focal numbness or weakness, headaches and dizziness or syncope, vision changes, speech/languag changes - EXCEPT that as per HPI above. SKIN:Negative for lesions, rash, and itching. PSYCHIATRIC: Negative for sleep disturbance, mood disorder and recent psychosocial stressors. HEMATOLOGIC/LYMPHATIC/IMMUNOLOGIC :Negative for prolonged bleeding, bruising easily or swollen nodes. ENDOCRINE: Negative for cold or heat intolerance, polyuria, polydipsia and goiter. The remainder of the ROS was reviewed and is negative. LAB/IMAGING: Those performed since patient's last visit have been reviewed. WBC (k/uL) Date Value 03/29/2023 7.42 RBC (m/uL) Date Value 03/29/2023 4.52 Hemoglobin (g/dL) Date Value 03/29/2023 14.3 Hematocrit (%) Date Value 03/29/2023 42.5 MCV (fL) Date Value 03/29/2023 94.0 MCH (pg) Date Value 03/29/2023 31.6 MCHC (g/dL) Date Value 03/29/2023 33.6 RDW- (more content not included)... [facility] 01-08-2024 History of Present illness Narrative ESTABLISHED PATIENT VISIT CHIEF COMPLAINT: Follow Up HISTORY OF PRESENT ILLNESS: Kacey Bentley is a 63 year old male, BMI 28.4 kg/m2 with a PMH significant for and per last office visit of 12/11/23: Rbd (rem behavioral disorder) (primary encounter diagnosis) Kacey Bentley is a 63 year old male with RBD, insomnia, PLMD Clonazepam 1 mg dose is effective for his RBD PLAN: Has 01/15/[address] Reddy, must keep that appt Will have him do UTOX then since he has been off the med for a week now Rx for clonazepam 1 mg #30 with 1 RF so he has enough until he sees Dr Reddy Cautioned to avoid etoh with clonazepam Per my last visit with pt on 08/30/23: 1. BOBBY (obstructive sleep apnea) - ICD9: 327.23, ICD10: G47.33 (primary diagnosis) Patient with known positional BOBBY (moderate supine and normal off-supine). While currently treating with positional therapy, attempting to get in with dentistry for oral appliance. Will reach out to dentistry to try and get pt sooner appointment. Besides BOBBY disrupting sleep, untreated BOBBY could also exacerbate parasomnias or RBD type behaviors. Advised pt not to drive or operate heavy machinery if sleepy. 2. PLMD (periodic limb movement disorder) - ICD9: 327.51, ICD10: G47.61 No RLS symptoms but leg kicking can occur during night. Prozac moved to AM. Some decrease in movements since on Klonopin. No ETOH prior to bed. Will increase Klonopin as below. 3. RBD (REM behavioral disorder) - ICD9: 327.42, ICD10: G47.52 History remains suggestive of RBD. Pt with rare cannabis use and while has daily glass of ETOH has moved to earlier in day with meal. Other exacerbating factors including BOBBY are being evaluated and treated and SSRI moved to AM. Still on Elavil with dose recently increased. I was considering having patient stop, but for now, will have patient decrease dose back to 10mg nightly. As symptoms have improved with Klonopin use, will increase dose from 0.5mg to 1.0mg prior to bedtime. SE and ADRs d/w pt. Advised pt of interactions of benzos with ETOH as well as possible effects benzos might have on BOBBY. He expresses understanding. D/w pt means of safe guarding house to avoid injury. Follow up in person with Saul Colmenares CNP in 4 weeks in [place]. At that time will need UDS and urine benzo confirm (annual lab). Would also try to stop Amitriptyline at that time if no contraindications. Patient reportedly having less nightmares. Taking Klonopin 1.0mg - last took last night. Still acting dreams out about once per week. Pt feeling tired in the AM. Still on Elavil even though no influence on symptoms. Still with ETOH use - 1 drink but not nightly - if does still about 2 hours prior to bedtime. 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 Working nights 5PM to 5AM (opposite prior shift). However will then have a week that he has to work 5AM to 5PM. Likely contributing to sleepiness. Moving during the night but no longer kicking during the night. He is again taking Prozac at night. Sleeping on side - states no BOBBY symptoms. No weight changes since sleep study. Pt again declines PAP therapy. Yet to see dentist regarding oral appliance (scheduled for 04/2024). REVIEW OF SYSTEMS GENERAL:No weight loss, malaise or fevers. HEENT:Negative for frequent or significant headaches, No changes in hearing or vision, no nose bleeds or other nasal problems NECK:Negative for lumps, goiter, pain and significant neck swelling RESPIRATORY: Negative for cough, wheezing or shortness of breath. CARDIOVASCULAR: Negative for chest pain, leg swelling or palpitations. GASTROINTESTINAL: Negative for abdominal discomfort, blood in stools or black stools or change in bowel habits GENITOURINARY: No history of dysuria, frequency or incontinence MUSCULOSKELETAL: Negative for joint pain or swelling, back pain or muscle pain. NEUROLOGIC:Negative for focal numbness or weakness, headaches and dizziness or syncope, vision changes, speech/languag changes - EXCEPT that as per HPI above. SKIN:Negative for lesions, rash, and itching. PSYCHIATRIC: Negative for sleep disturbance, mood disorder and recent psychosocial stressors. HEMATOLOGIC/LYMPHATIC/IMMUNOLOGIC :Negative for prolonged bleeding, bruising easily or swollen nodes. ENDOCRINE: Negative for cold or heat intolerance, polyuria, polydipsia and goiter. The remainder of the ROS was reviewed and is negative. LAB/IMAGING: Those performed since patient's last visit have been reviewed. WBC (k/uL) Date Value 03/29/2023 7.42 RBC (m/uL) Date Value 03/29/2023 4.52 Hemoglobin (g/dL) Date Value 03/29/2023 14.3 Hematocrit (%) Date Value 03/29/2023 42.5 MCV (fL) Date Value 03/29/2023 94.0 MCH (pg) Date Value 03/29/2023 31.6 MCHC (g/dL) Date Value 03/29/2023 33.6 RDW-CV (%) Date Value 03/29/2023 11.9 Platelet Count (k/uL) Date Value 03/29/2023 179 MPV (fL) Date Value 03/29/2023 10.2 Glucose (mg/dL) Date Value 07/31/2023 76 BUN (mg/dL) Date Value 07/31/2023 16 Creatinine (mg/dL) Date Value 07/31/2023 1.16 Sodium (mmol/L) Date Value 07/31/2023 141 Potassium (mmol/L) Date Value 07/31/2023 4.6 Chloride (mmol/L) Date Value 07/31/2023 103 CO2 (mmol/L) Date Value 07/31/2023 26 Protein, Total (g/dL) Date Value 07/31/2023 6.8 Albumin (g/dL) Date Value 07/31/2023 4.6 Calcium, Total (mg/dL) Date Value 07/31/2023 9.5 Alkaline Phosphatase (U/L) Date Value 07/31/2023 64 Bilirubin, Total (mg/dL) Date Value 07/31/2023 0.5 AST (U/L) Date Value 07/31/2023 20 ALT (U/L) Date Value 07/31/2023 7 (L) Hep C Antibody IA (no units) Date Value 05/13/2019 Negative MEDICATIONS: clonazePAM (KLONOPIN) 1 mg tablet Take 1 tab QHS. FLUoxetine (PROZAC) 40 mg capsule Take 1 capsule by mouth once daily. amitriptyline (ELAVIL) 10 mg tablet Take 2 tablets by mouth daily at bedtime. rosuvastatin (CRESTOR) 20 mg tablet Take 1 tablet by mouth once daily. finasteride (PROSCAR) 5 mg tablet Take 1 tablet by mouth once daily. dicyclomine (BENTYL) 10 mg capsule Take 1 capsule by mouth before meals and at bedtime. For bowels/irritable bowels omeprazole (PRILOSEC) 20 mg capsule Take 1 capsule by mouth once daily. 30 min before breakfast HISTORIES PAST MEDICAL HISTORY Diagnosis Date Arthritis Colon polyps 03/26/2010 Dr. Salty Rodrigues, by c scope Depression Dyslipidemia Hyperlipemia BOBBY (obstructive sleep apnea) CPAP Personal history of colonic polyps 03/10/2016 tubular adenoma Sleep apnea FAMILY HISTORY Problem Relation Age of Onset Emphysema Mother 62 Colon Cancer Brother 58 other (black lung) Maternal Grandfather Heart Paternal Grandmother Heart Paternal Grandfather No Ocular Disease No Family History SOCIAL HISTORY Social History Tobacco Use Smoking status: Former Current packs/day: 0.00 Average packs/day: 1.3 packs/day for 35.0 years (43.8 ttl pk-yrs) Types: Cigarettes Start date: 02/20/1970 Quit date: 02/20/2005 Years since quittin.8 Smokeless tobacco: Never Vaping Use Vaping status: Never Used Substance Use Topics Alcohol use: Yes Alcohol/week: 1.3 - 2.6 standard drinks of alcohol Types: 1 - 2 Mixed Drinks per week Comment: 1-2 drinks per day Drug use: Yes Frequency: 7.0 times per week Types: Marijuana Comment: uses daily PHYSICAL EXAMINATION BP 123/77 (BP Site: Right Arm, BP Position: Standing) Pulse 87 Wt 92.4 kg (203 lb 9.6 oz) SpO2 99% BMI 28.40 kg/m GENERAL EXAM: General appearance: NAD, pleasant. HEENT: NC/AT, nasal congestion absent, no oral lesions, membranes moist. Lungs: CTA bilaterally. CV: RRR nl S1, S2 Extr: No cyanosis, clubbing or edema. Skin: Cool to touch. NEUROLOGICAL EXAM: General: Awake, alert, oriented x3 (person,place,time), speech fluent, no dysarthria; comprehension, naming, repetition intact. CN: PERRL, EOMI and without nystagmus, VFF to confrontation, facial sensation and strength are normal and symmetric, hearing is intact, palate and tongue movements are intact and symmetric. SCM and trapezius strength normal. Motor: Normal tone, bulk and strength (5/5) bilaterally (throughout extremities x4). Coordination: FNF, SUZETTE, HTS intact. No tremors. Sensation: Light touch intact throughout. No evidence of neglect. Gait: Stable with normal stride and arm swing. Assessment and Plan: ASSESSMENT/PLAN: 1. Obstructive sleep apnea (adult) (pediatric) - ICD9: 327.23, ICD10: G47.33 (primary diagnosis) Patient continues to practice positional therapy. Note that he has known moderate BOBBY exacerbated to severe when also in REM. Uncertain to what extent behaviors at night might be secondary to respiratory events as well. Pt declines PAP. Encouraging pt to keep appt with dentistry for possible oral/dental appliance. 2. High risk medication use - ICD9: V58.69, ICD10: Z79.899 Referring to Klonopin - needs yearly labs. - TOXICOLOGY SCREEN, ROUTINE URINE - BENZO CONFIRM, URINE Refills provided but will cx if invalid or inappropriate lab findings. 3. RBD (REM behavioral disorder) - ICD9: 327.42, ICD10: G47.52 Patient continues to act out at night. Reports later in night and appears associated with dreams. Already on Klonopin 1.0mg qhs which has improved symptoms. Unclear as to why, but again taking Prozac at night which can trigger RBD symptoms in about 6% of users, and thus again encouraged pt to take Prozac in AM. Will add Melatoin 5mg to Klonopin at night to see if this improves behaviors - choice to add melatonin due to shift work below. SE and ADRs d/w pt. Refills provided. 4. PLMD (periodic limb movement disorder) - ICD9: 327.51, ICD10: G47.61 Possibly exacerbated by Elavil and Prozac, neither of which has benefited sleep. Moving Prozac to AM as above. Stopping Elavil as has never resulted in any benefits. 5. 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 Likely contributing to any sleepiness. Thus, choosing to use melatonin for RBD at this time as it might also help patient adjust to sleep schedules more quickly. Jorge Reddy MD Medical Decision Making: Problems: Moderate: 2+ stable chronic illnesses Data: Unique test result(s) reviewed: 2 Unique test(s) ordered: 1 Risk: Moderate: Drug management Medical Decision Making Level: 4 - Moderate documented in this encounter [facility] 12-11-2023 Note HNO ID: [id number] Author: SUSHANT COLMENARES APRN.SFDC ARCHITECT Service: ? Author Type: Nurse Practitioner Type: Progress Notes Filed: 12/11/2023 14:11 Note Text: [facility] Follow up/ Established patient visit Date of last visit : 06/23/23 The following Impression/Plan was copied and pasted from the patient's last [facility] visit on 06/23/23: ASSESSMENT/PLAN: 1. BOBBY (obstructive sleep apnea) - ICD9: 327.23, ICD10: G47.33 (primary diagnosis) 2. RBD (REM behavioral disorder) - ICD9: 327.42, ICD10: G47.52 3. PLMD (periodic limb movement disorder) - ICD9: 327.51, ICD10: G47.61 Patient with complaints of fragmented sleep, daytime sleepiness, acting out dreams... as above. Suspect patient with multiple sleep disorders contributing to symptoms. These include the following: -BOBBY for which patient tried PAP in past but could not tolerate. He looked into [facility], but after discussing with patient today, his preference would be for an oral appliance which I do feel would be an appropriate alternative given positional nature of sleep apnea and pt's preference to not sleep in the supine position. Reviewed prior sleep studies with pt. Again, based on AASM guidelines his AHI would be in the moderate range overall and severe when supine (CMS guideline results above). Discussed with patient and his : the physiology of OSAS, medical conditions associated with OSAS (DM, HTN, CAD, Depression, Stroke, Headache...) and treatment options (UPPP, Dental appliances, CPAP...). Referral will be made to dentistry and Dr. Perea for appliance. In meantime will use pillows to encourage off-supine sleep. Explained to patient that ETOH use prior to bed could exacerbate BOBBY and advised that if he is to have a drink do so no later than dinner time. Untreated BOBBY may also be resulting in pseudo RBD or or exacerbating his acting out dreams -- although suspect RBD per history provided as below. Advised patient to avoid activities that could harm self or others when tired/sleepy, including driving and/or operating heavy machinery. Encouraged weight loss, and continued compliance with other medications. -RBD with patient acting out dreams during the second half of the night to the point that such actions have resulted in injury. While RSWA did not meet electrodiagnostic criteria for RBD, highly suspect his dx by history. No history of neurodegenerative disorders but pt instructed on relationship between RBD and later development of such disorders. Discussed means of ensuring safety including moving furniture away from the bed. Encouraged pt to move ETOH to an earlier hour if he was to have a drink. Also advised pt to move Prozac (SSRIs) to the AM. D/w pt treatment options but given severity of events in the past (injuries) and that he also has PLMs, will first try to treat with Klonopin 0.25 to 0.5mg QHS. SE and ADRs of Klonopin d/w pt in detail. He will need a UDS andbezon confirmation at 3 month follow up. Note pt does occasionally use minimal cannabis - we have been made aware and explained possible influence of it on meds and conditions. Also note, MRI brain in 2014 did not show intracranial source of symptoms and non focal neuro exam. -PLMD with patient having no RLS symptoms but PLMs on PSG as well as per witnessed history. Possible SSRIs exacerbating and having them move SSRIs to AM rather than PM hours. No history of Fe deficiency. No definite family history of PLMs. At this time will treat with Klonopin as above (treating 2 conditions with 1 med to reduce risk of polypharmacy). Jorge Reddy MD Here for follow up for RBD, needs a short term refill of clonazepam until his scheduled follow up with Dr Reddy. He never did the recommended 4 wk follow up after starting clonazepam in August. Clonazepam 1 mg minimized his movements in bed per his . Hasn't fallen out bed since being on the 1 mg dose. She has been able to sleep with him again. He would remember some dreams but they weren't violent per his (she is on the phone). He ran out of clonazepam about a week ago -- since then he notes recurrent nightmares, wakes in the night, then goes right back into the same dream. He remembers the dreams this week. But no significant increase in his YULISA yet since running out of clonazepam, at least not to the extent of falling out of bed. 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 He gets 7-8 hrs of sleep per night Amitriptyline 10 mg helps with falling asleep [facility] 12/11/2023 Sleep Questions Reason for visit: Difficulty falling or staying asleep or poor sleep quality Excessive daytime sleepiness Abnormal behaviors/movements during sleep On average, hours of sleep in 24 hours: 7 Accidents or near accidents due to drowsy drivin Multiple valu (more content not included)... [facility] 12-11-2023 History of Present illness Narrative Images from the original note were not included. [facility] Follow up/ Established patient visit Date of last visit : 06/23/23 The following Impression/Plan was copied and pasted from the patient's last [facility] visit on 06/23/23: ASSESSMENT/PLAN: 1. BOBBY (obstructive sleep apnea) - ICD9: 327.23, ICD10: G47.33 (primary diagnosis) 2. RBD (REM behavioral disorder) - ICD9: 327.42, ICD10: G47.52 3. PLMD (periodic limb movement disorder) - ICD9: 327.51, ICD10: G47.61 Patient with complaints of fragmented sleep, daytime sleepiness, acting out dreams... as above. Suspect patient with multiple sleep disorders contributing to symptoms. These include the following: -BOBBY for which patient tried PAP in past but could not tolerate. He looked into Inspire, but after discussing with patient today, his preference would be for an oral appliance which I do feel would be an appropriate alternative given positional nature of sleep apnea and pt's preference to not sleep in the supine position. Reviewed prior sleep studies with pt. Again, based on AASM guidelines his AHI would be in the moderate range overall and severe when supine (CMS guideline results above). Discussed with patient and his : the physiology of OSAS, medical conditions associated with OSAS (DM, HTN, CAD, Depression, Stroke, Headache...) and treatment options (UPPP, Dental appliances, CPAP...). Referral will be made to dentistry and Dr. Perea for appliance. In meantime will use pillows to encourage off-supine sleep. Explained to patient that ETOH use prior to bed could exacerbate BOBBY and advised that if he is to have a drink do so no later than dinner time. Untreated BOBBY may also be resulting in pseudo RBD or or exacerbating his acting out dreams -- although suspect RBD per history provided as below. Advised patient to avoid activities that could harm self or others when tired/sleepy, including driving and/or operating heavy machinery. Encouraged weight loss, and continued compliance with other medications. -RBD with patient acting out dreams during the second half of the night to the point that such actions have resulted in injury. While VARSHA did not meet electrodiagnostic criteria for RBD, highly suspect his dx by history. No history of neurodegenerative disorders but pt instructed on relationship between RBD and later development of such disorders. Discussed means of ensuring safety including moving furniture away from the bed. Encouraged pt to move ETOH to an earlier hour if he was to have a drink. Also advised pt to move Prozac (SSRIs) to the AM. D/w pt treatment options but given severity of events in the past (injuries) and that he also has PLMs, will first try to treat with Klonopin 0.25 to 0.5mg QHS. SE and ADRs of Klonopin d/w pt in detail. He will need a UDS and bezon confirmation at 3 month follow up. Note pt does occasionally use minimal cannabis - we have been made aware and explained possible influence of it on meds and conditions. Also note, MRI brain in 2014 did not show intracranial source of symptoms and non focal neuro exam. -PLMD with patient having no RLS symptoms but PLMs on PSG as well as per witnessed history. Possible SSRIs exacerbating and having them move SSRIs to AM rather than PM hours. No history of Fe deficiency. No definite family history of PLMs. At this time will treat with Klonopin as above (treating 2 conditions with 1 med to reduce risk of polypharmacy). Jorge Reddy MD Here for follow up for RBD, needs a short term refill of clonazepam until his scheduled follow up with Dr Reddy. He never did the recommended 4 wk follow up after starting clonazepam in August. Clonazepam 1 mg minimized his movements in bed per his . Hasn't fallen out bed since being on the 1 mg dose. She has been able to sleep with him again. He would remember some dreams but they weren't violent per his (she is on the phone). He ran out of clonazepam about a week ago -- since then he notes recurrent nightmares, wakes in the night, then goes right back into the same dream. He remembers the dreams this week. But no significant increase in his YULISA yet since running out of clonazepam, at least not to the extent of falling out of bed. 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 He gets 7-8 hrs of sleep per night Amitriptyline 10 mg helps with falling asleep PATIENT-ENTERED QUESTIONNAIRE SLEEP SCORES 12/11/2023 Sleep Questions Reason for visit: Difficulty falling or staying asleep or poor sleep quality Excessive daytime sleepiness Abnormal behaviors/movements during sleep On average, hours of sleep in 24 hours: 7 Accidents or near accidents due to drowsy drivin Multiple values from one day are sorted in reverse-chronological order 12/15/2022 12/11/2023 [place] Sleepiness Scale Score 13 (Excessive daytime sleepiness present) 8 (No clinically significant daytime sleepiness) 12/15/2022 12/11/2023 PROMIS CAT Sleep Disturbance PROMIS Sleep Disturbance T-Score 62 (moderate) 64 (moderate) PROMIS Sleep Disturbance Percentile 12 8 12/15/2022 12/11/2023 Insomnia Severity Index Score 19 17 12/15/2022 Restless Leg Syndrome Score 16 (Moderate symptoms) 01/09/2023 03/21/2023 06/27/2023 PHQ-9 Score 5 11 11 06/02/2023 08/30/2023 12/11/2023 PROMIS Global Health - (T-Scores - the mean of general population = 50. Five points is a clinically meaningful difference.) Physical T-Score 47.7 47.7 44.9 47.7 Mental T-Score 45.8 45.8 41.1 43.5 ALLERGIES No Known Allergies CURRENT MEDICATIONS: FLUoxetine (PROZAC) 40 mg capsule Take 1 capsule by mouth once daily. amitriptyline (ELAVIL) 10 mg tablet Take 2 tablets by mouth daily at bedtime. rosuvastatin (CRESTOR) 20 mg tablet Take 1 tablet by mouth once daily. finasteride (PROSCAR) 5 mg tablet Take 1 tablet by mouth once daily. dicyclomine (BENTYL) 10 mg capsule Take 1 capsule by mouth before meals and at bedtime. For bowels/irritable bowels omeprazole (PRILOSEC) 20 mg capsule Take 1 capsule by mouth once daily. 30 min before breakfast clonazePAM (KLONOPIN) 1 mg tablet Take 1 tab QHS. PHYSICAL EXAMINATION: Vital Signs: BP 106/73 Pulse 91 Resp 16 Wt 90.4 kg (199 lb 4.7 oz) SpO2 98% BMI 27.80 kg/m PHYSICAL EXAM: General appearance: pleasant, NAD Mental status: alert and oriented, able to provide own history Constitutional: WNL Skin: No visible rashes on exposed skin Neuro: No focal deficits observed, no tremors IMPRESSION: Rbd (rem behavioral disorder) (primary encounter diagnosis) Kacey Bentley is a 63 year old male with RBD, insomnia, PLMD Clonazepam 1 mg dose is effective for his RBD PLAN: Has 01/15/[address] Reddy, must keep that appt Will have him do UTOX then since he has been off the med for a week now Rx for clonazepam 1 mg #30 with 1 RF so he has enough until he sees Dr Reddy Cautioned to avoid etoh with clonazepam PDMP website checked and validated. All prescriptions have been APPROPRIATELY filled. No suspicious activity was identified. 12/11/2023 by Sushant Colmenares APRN.SFDC ARCHITECT Sushant Colmenares APRN.SFDC ARCHITECT documented in this encounter [facility] 12-10-2023 Telephone encounter Note Pt has not complied with treatment plan including need for follow ups. Pt scheduled for follow up tomorrow 12/11/23 with Saul Colmenares CNP at which time can reevaluate if appropriate to refill Klonopin. Jorge Reddy MD [facility] 12-10-2023 Miscellaneous Notes Pt has not complied with treatment plan including need for follow ups. Pt scheduled for follow up tomorrow 12/11/23 with Saul Colmenares CNP at which time can reevaluate if appropriate to refill Klonopin. Jorge Reddy MD Patients came into office this morning stating that pt. Is completely out of medication. Asking for refill. Does not see Dr. Reddy until 01/15/24. Kiarra Alba MA documented in this encounter [facility] 12-09-2023 Telephone encounter Note Patients came into office this morning stating that pt. Is completely out of medication. Asking for refill. Does not see Dr. Reddy until 01/15/24. Kiarra Alba MA [facility] 11-27-2023 Telephone encounter Note LVM for pt to call and schedule also sent mcm [facility] 11-27-2023 Miscellaneous Notes LVM for pt to call and schedule also sent mcm documented in this encounter [facility] 11-01-2023 Telephone encounter Note Called Spouse-no answer. Left voicemail requesting she call the [facility] to schedule in-office visit with any sleep IVIS. Isabell Maya [facility] 11-01-2023 Miscellaneous Notes Called Spouse-no answer. Left voicemail requesting she call the [facility] to schedule in-office visit with any sleep IVIS. Isabell Maya Received call from patient's . She reports that everything has blown up at his work He is working 12 hour shifts, 7 days a week. He currently works 5A-5P. 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 She reports he may stay on nights though because they just fired someone and he is covering those shifts. Virtual appointments have been missed. During the time he ran out of Kiddify, he had episodes of falling out of bed and extreme dreams. He has been back on the Kiddify as of 10-25-23. He is jumping out of bed, not knowing where he is. Going [facility] around the bedroom and is falling near the window which wakes up and startles her. When he wasn't on the Klonopin, she has heard him downstairs on the floor. He wakes up and doesn't know what he is doing but he does snap out of it and remember the episodes. He just can't recall the dreams he is acting out. She reports he was a big drinker, and has cut down to just a drink a night of hard liquor ( cancino it down though). Has a follow up appointment scheduled for 01-15-[address] Reddy. Spoke to Dr. Reddy who recommended for in person appointment with soonest available IVIS. Received voicemail 10-31-23 at 12:57 PM. Good afternoon my name is Jonathan Bentley. Calling for my Kacey Bentley. Birthday [birth year]. If you could please call me back at [phone]. I would appreciate it. He has started taking the medicine but he is still having some turbulent dreams and I'd like to talk to you about it. Thank you very much and have a good day. Call to patient's . No answer. Left voicemail to return call. Last office visit with Dr. Reddy (virtual) 08-30-23 Assessment and Plan: ASSESSMENT/PLAN: 1. BOBBY (obstructive sleep apnea) - ICD9: 327.23, ICD10: G47.33 (primary diagnosis) Patient with known positional BOBBY (moderate supine and normal off-supine). While currently treating with positional therapy, attempting to get in with dentistry for oral appliance. Will reach out to dentistry to try and get pt sooner appointment. Besides BOBBY disrupting sleep, untreated BOBBY could also exacerbate parasomnias or RBD type behaviors. Advised pt not to drive or operate heavy machinery if sleepy. 2. PLMD (periodic limb movement disorder) - ICD9: 327.51, ICD10: G47.61 No RLS symptoms but leg kicking can occur during night. Prozac moved to AM. Some decrease in movements since on Klonopin. No ETOH prior to bed. Will increase Klonopin as below. 3. RBD (REM behavioral disorder) - ICD9: 327.42, ICD10: G47.52 History remains suggestive of RBD. Pt with rare cannabis use and while has daily glass of ETOH has moved to earlier in day with meal. Other exacerbating factors including BOBBY are being evaluated and treated and SSRI moved to AM. Still on Elavil with dose recently increased. I was considering having patient stop, but for now, will have patient decrease dose back to 10mg nightly. As symptoms have improved with Klonopin use, will increase dose from 0.5mg to 1.0mg prior to bedtime. SE and ADRs d/w pt. Advised pt of interactions of benzos with ETOH as well as possible effects benzos might have on BOBBY. He expresses understanding. D/w pt means of safe guarding house to avoid injury. Follow up in person with Saul Colmenares CNP in 4 weeks in [place]. At that time will need UDS and urine benzo confirm (annual lab). Would also try to stop Amitriptyline at that time if no contraindications. documented in this encounter [facility] 11-01-2023 Telephone encounter Note Received call from patient's . She reports that everything has blown up at his work He is working 12 hour shifts, 7 days a week. He currently works 5A-5P. 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 She reports he may stay on nights though because they just fired someone and he is covering those shifts. Virtual appointments have been missed. During the time he ran out of Kiddify, he had episodes of falling out of bed and extreme dreams. He has been back on the Kiddify as of 10-25-23. He is jumping out of bed, not knowing where he is. Going [facility] around the bedroom and is falling near the window which wakes up and startles her. When he wasn't on the Kiddify, she has heard him downstairs on the floor. He wakes up and doesn't know what he is doing but he does snap out of it and remember the episodes. He just can't recall the dreams he is acting out. She reports he was a big drinker, and has cut down to just a drink a night of hard liquor ( cancino it down though). Has a follow up appointment scheduled for 01-15-[address] Reddy. Spoke to Dr. Reddy who recommended for in person appointment with soonest available IVIS. [facility] 11-01-2023 Telephone encounter Note Received voicemail 10-31-23 at 12:57 PM. Good afternoon my name is Jonathan Bentley. Calling for my Kacey Bentley. Birthday [birth year]. If you could please call me back at [phone]. I would appreciate it. He has started taking the medicine but he is still having some turbulent dreams and I'd like to talk to you about it. Thank you very much and have a good day. Call to patient's . No answer. Left voicemail to return call. Last office visit with Dr. Reddy (virtual) 08-30-23 Assessment and Plan: ASSESSMENT/PLAN: 1. BOBBY (obstructive sleep apnea) - ICD9: 327.23, ICD10: G47.33 (primary diagnosis) Patient with known positional BOBBY (moderate supine and normal off-supine). While currently treating with positional therapy, attempting to get in with dentistry for oral appliance. Will reach out to dentistry to try and get pt sooner appointment. Besides BOBBY disrupting sleep, untreated BOBBY could also exacerbate parasomnias or RBD type behaviors. Advised pt not to drive or operate heavy machinery if sleepy. 2. PLMD (periodic limb movement disorder) - ICD9: 327.51, ICD10: G47.61 No RLS symptoms but leg kicking can occur during night. Prozac moved to AM. Some decrease in movements since on Klonopin. No ETOH prior to bed. Will increase Klonopin as below. 3. RBD (REM behavioral disorder) - ICD9: 327.42, ICD10: G47.52 History remains suggestive of RBD. Pt with rare cannabis use and while has daily glass of ETOH has moved to earlier in day with meal. Other exacerbating factors including BOBBY are being evaluated and treated and SSRI moved to AM. Still on Elavil with dose recently increased. I was considering having patient stop, but for now, will have patient decrease dose back to 10mg nightly. As symptoms have improved with Klonopin use, will increase dose from 0.5mg to 1.0mg prior to bedtime. SE and ADRs d/w pt. Advised pt of interactions of benzos with ETOH as well as possible effects benzos might have on BOBBY. He expresses understanding. D/w pt means of safe guarding house to avoid injury. Follow up in person with Saul Colmenares CNP in 4 weeks in [place]. At that time will need UDS and urine benzo confirm (annual lab). Would also try to stop Amitriptyline at that time if no contraindications. [facility] 10-25-2023 Telephone encounter Note PDMP website checked and validated. All prescriptions have been APPROPRIATELY filled. No suspicious activity was identified. 10/25/2023 by Jorge Reddy MD [facility] 10-25-2023 Miscellaneous Notes [facility]. All prescriptions have been APPROPRIATELY filled. No suspicious activity was identified. 10/25/2023 by Jorge Reddy MD Prescription Refill Information The patient has been identified by name and date of : Yes Caregiver verified no other encounters exist for this prescription request: Yes Caregiver confirmed with patient/requestor that no other refills are due, in the near future, with this provider at this time: Yes The last office visit in the department: 08-30-2023 Does the patient have a future office visit with this provider/department: Yes clonazePAM (KLONOPIN) 1 mg tablet () Patient is currently out. Haylee Rubin October 25, 2023 10:29 AM documented in this encounter [facility] 10-25-2023 Telephone encounter Note Prescription Refill Information The patient has been identified by name and date of : Yes Caregiver verified no other encounters exist for this prescription request: Yes Caregiver confirmed with patient/requestor that no other refills are due, in the near future, with this provider at this time: Yes The last office visit in the department: 08-30-2023 Does the patient have a future office visit with this provider/department: Yes clonazePAM (KLONOPIN) 1 mg tablet () Patient is currently out. Haylee Rubin October 25, 2023 10:29 AM [facility] 09-19-2023 Instructions Danisha Cummins, INSTRUCTOR WATCH ASSEMBLY.SFDC ARCHITECT - 09/19/2023 1:20 PM EDT Dear Kacey, It has come to my attention you missed your appointment on September 19, 2023 without calling to cancel. Our first concern is your health. If your behavioral health concern prompting your appointment is still present, please reschedule soon so that you may receive the appropriate care by calling the appointment number listed above. It is important that you notify our office if you are unable to make an appointment. That time can then be used for other patients. If our information is incorrect, please call so we can correct our records. Since you may be new to our office, I want to alert you to our cancellation policy. Because there are many patients waiting for appointments, we may bill patients $75 when they fail to come to their appointments without giving us adequate notice (i.e., within 24-hours). For example, if you are scheduled for 10:00am on a , you must cancel by 10:00am Monday. Because insurance companies do not cover such fees, patients are billed directly. According to our protocol, if a patient fails to show up for appointments, without calling to cancel, four (4) times within a rolling year period, he/she will be asked to seek care from a provider outside the Department of Psychiatry and Psychology at the [facility]. A rolling year begins with the date of your first No Show incident and goes forward for a 12 month period. This is the 1st time in twelve (12) months that without calling to cancel, you have failed to keep your appointment. It is your responsibility to keep appointments and to alert us in a timely manner when you are unable to do so. Again, if any of this information is incorrect, I apologize in advance. Please call the [facility] Office at [phone] if you have questions about this protocol or question the data on file. If there has been an error, your file will be corrected accordingly. Sincerely, Danisha Cummins APRN, CNP documented in this encounter [facility] 09-19-2023 Note HNO ID: [id number] Author: DANISHA CUMMINS APRN.CNP Service: ? Author Type: Nurse Practitioner Type: Progress Notes Filed: 09/19/2023 13:20 Note Text: Patient did not come in for his scheduled follow up visit with the provider today. [facility] 09-19-2023 History of Present illness Narrative Patient did not come in for his scheduled follow up visit with the provider today. documented in this encounter [facility] 09-08-2023 Telephone encounter Note Multiple attempts to reach patient without success. Letter mailed to patients home address notifying of need to contact office for appointment. ENRIQUE Funk [facility] 09-08-2023 Miscellaneous Notes Multiple attempts to reach patient without success. Letter mailed to patients home address notifying of need to contact office for appointment. ENRIQUE Funk Additional TC no answer, left VM. Appointment below has been filled, will need to find another appointment time. ENRIQUE Funk TC to patient to schedule follow up below. No answer, left VM to return call. Please schedule on 09/21 with Jose Colmenares. ENRIQUE Funk Jorge Reddy Jr., MD P [facility] Maureen Nurse Follow up with Saul Colmenares CNP in [place] in person in 4 weeks or as soon as possible. documented in this encounter [facility] 09-07-2023 Telephone encounter Note Additional TC no answer, left VM. Appointment below has been filled, will need to find another appointment time. ENRIQUE Funk [facility] 08-30-2023 Telephone encounter Note TC to patient to schedule follow up below. No answer, left VM to return call. Please schedule on 09/21 with Jose Colmenares. ENRIQUE Funk [facility] 08-30-2023 Telephone encounter Note Jorge Reddy Jr., MD P Wstr Neur Maureen Nurse Follow up with Saul Colmenares CNP in [place] in person in 4 weeks or as soon as possible. [facility] 08-30-2023 Instructions Jorge Reddy Jr., MD - 08/30/2023 8:33 AM EDT 1) Reduce amitriptyline to 10mg or 1 tablet at night. 2) Increase Klonopin to 1mg nightly (new Rx sent to [facility] for you today). documented in this encounter [facility] 08-30-2023 Note HNO ID: [id number] Author: JORGE REDDY JR, MD Service: ? Author Type: Physician Type: Progress Notes Filed: 08/30/2023 08:36 Note Text: ESTABLISHED PATIENT VISIT (Virtual Visit with Video) For this virtual visit, the patient has been identified by name and (MRN and photo identification as well if available). Those taking part in visit: Patient and physician via [employer]. Consent for this visit received from patient. I have communicated my name and active licensure. The patient's identity and physical location ([place]) were verified at the time of this visit. The patient has been informed of the risks and benefits of -- and alternatives to -- treatment through a remote evaluation and consents to proceed with the evaluation remotely. HISTORY OF PRESENT ILLNESS: Kacey Bentley is a 63 year old male, with a PMH significant for and per last office visit of 06/23/23: ASSESSMENT/PLAN: 1. BOBBY (obstructive sleep apnea) - ICD9: 327.23, ICD10: G47.33 (primary diagnosis) 2. RBD (REM behavioral disorder) - ICD9: 327.42, ICD10: G47.52 3. PLMD (periodic limb movement disorder) - ICD9: 327.51, ICD10: G47.61 Patient with complaints of fragmented sleep, daytime sleepiness, acting out dreams... as above. Suspect patient with multiple sleep disorders contributing to symptoms. These include the following: -BOBBY for which patient tried PAP in past but could not tolerate. He looked into Inspire, but after discussing with patient today, his preference would be for an oral appliance which I do feel would be an appropriate alternative given positional nature of sleep apnea and pt's preference to not sleep in the supine position. Reviewed prior sleep studies with pt. Again, based on AASM guidelines his AHI would be in the moderate range overall and severe when supine (CMS guideline results above). Discussed with patient and his : the physiology of OSAS, medical conditions associated with OSAS (DM, HTN, CAD, Depression, Stroke, Headache...) and treatment options (UPPP, Dental appliances, CPAP...). Referral will be made to dentistry and Dr. Perea for appliance. In meantime will use pillows to encourage off-supine sleep. Explained to patient that ETOH use prior to bed could exacerbate BOBBY and advised that if he is to have a drink do so no later than dinner time. Untreated BOBBY may also be resulting in pseudo RBD or or exacerbating his acting out dreams -- although suspect RBD per history provided as below. Advised patient to avoid activities that could harm self or others when tired/sleepy, including driving and/or operating heavy machinery. Encouraged weight loss, and continued compliance with other medications. -RBD with patient acting out dreams during the second half of the night to the point that such actions have resulted in injury. While RSWA did not meet electrodiagnostic criteria for RBD, highly suspect his dx by history. No history of neurodegenerative disorders but pt instructed on relationship between RBD and later development of such disorders. Discussed means of ensuring safety including moving furniture away from the bed. Encouraged pt to move ETOH to an earlier hour if he was to have a drink. Also advised pt to move Prozac (SSRIs) to the AM. D/w pt treatment options but given severity of events in the past (injuries) and that he also has PLMs, will first try to treat with Klonopin 0.25 to 0.5mg QHS. SE and ADRs of Klonopin d/w pt in detail. He will need a UDS andbezon confirmation at 3 month follow up. Note pt does occasionally use minimal cannabis - we have been made aware and explained possible influence of it on meds and conditions. Also note, MRI brain in 2015 did not show intracranial source of symptoms and non focal neuro exam. -PLMD with patient having no RLS symptoms but PLMs on PSG as well as per witnessed history. Possible SSRIs exacerbating and having them move SSRIs to AM rather than PM hours. No history of Fe deficiency. No definite family history of PLMs. At this time will treat with Klonopin as above (treating 2 conditions with 1 med to reduce risk of polypharmacy). . Patient states he has looked into a dental appliance but appointment still pending with dentistry. Patient trying to sleep on side and doing fairly good job of it per pt. Regarding Klonopin, taking 0.5mg nightly and thinks that since on it has more energy on some days. States he has still woken up screaming. Frequency of behaviors during the night has reduced -- still occur later in the night. Pt wakes and goes back to sleep. No injuries. tells him behaviors are still present but not to the degree he was. No side effects on medications. Moved prozac earlier in the day. No ETOH prior to bed but may have drink with dinner. Admits to rare cannabis use. No issues falling asleep. Still tossing through the night. Still thinks wakes about 5 times per night. Bedtime about 10-11PM. Waking to start (more content not included)... [facility] 08-30-2023 History of Present illness Narrative ESTABLISHED PATIENT VISIT (Virtual Visit with Video) For this virtual visit, the patient has been identified by name and (MRN and photo identification as well if available). Those taking part in visit: Patient and physician via [employer]. Consent for this visit received from patient. I have communicated my name and active licensure. The patient's identity and physical location ([place]) were verified at the time of this visit. The patient has been informed of the risks and benefits of -- and alternatives to -- treatment through a remote evaluation and consents to proceed with the evaluation remotely. HISTORY OF PRESENT ILLNESS: Kacey Bentley is a 63 year old male, with a PMH significant for and per last office visit of 06/23/23: ASSESSMENT/PLAN: 1. BOBBY (obstructive sleep apnea) - ICD9: 327.23, ICD10: G47.33 (primary diagnosis) 2. RBD (REM behavioral disorder) - ICD9: 327.42, ICD10: G47.52 3. PLMD (periodic limb movement disorder) - ICD9: 327.51, ICD10: G47.61 Patient with complaints of fragmented sleep, daytime sleepiness, acting out dreams... as above. Suspect patient with multiple sleep disorders contributing to symptoms. These include the following: -BOBBY for which patient tried PAP in past but could not tolerate. He looked into Inspire, but after discussing with patient today, his preference would be for an oral appliance which I do feel would be an appropriate alternative given positional nature of sleep apnea and pt's preference to not sleep in the supine position. Reviewed prior sleep studies with pt. Again, based on AASM guidelines his AHI would be in the moderate range overall and severe when supine (CMS guideline results above). Discussed with patient and his : the physiology of OSAS, medical conditions associated with OSAS (DM, HTN, CAD, Depression, Stroke, Headache...) and treatment options (UPPP, Dental appliances, CPAP...). Referral will be made to dentistry and Dr. Perea for appliance. In meantime will use pillows to encourage off-supine sleep. Explained to patient that ETOH use prior to bed could exacerbate BOBBY and advised that if he is to have a drink do so no later than dinner time. Untreated BOBBY may also be resulting in pseudo RBD or or exacerbating his acting out dreams -- although suspect RBD per history provided as below. Advised patient to avoid activities that could harm self or others when tired/sleepy, including driving and/or operating heavy machinery. Encouraged weight loss, and continued compliance with other medications. -RBD with patient acting out dreams during the second half of the night to the point that such actions have resulted in injury. While VARSHA did not meet electrodiagnostic criteria for RBD, highly suspect his dx by history. No history of neurodegenerative disorders but pt instructed on relationship between RBD and later development of such disorders. Discussed means of ensuring safety including moving furniture away from the bed. Encouraged pt to move ETOH to an earlier hour if he was to have a drink. Also advised pt to move Prozac (SSRIs) to the AM. D/w pt treatment options but given severity of events in the past (injuries) and that he also has PLMs, will first try to treat with Klonopin 0.25 to 0.5mg QHS. SE and ADRs of Klonopin d/w pt in detail. He will need a UDS and bezon confirmation at 3 month follow up. Note pt does occasionally use minimal cannabis - we have been made aware and explained possible influence of it on meds and conditions. Also note, MRI brain in 2014 did not show intracranial source of symptoms and non focal neuro exam. -PLMD with patient having no RLS symptoms but PLMs on PSG as well as per witnessed history. Possible SSRIs exacerbating and having them move SSRIs to AM rather than PM hours. No history of Fe deficiency. No definite family history of PLMs. At this time will treat with Klonopin as above (treating 2 conditions with 1 med to reduce risk of polypharmacy). . Patient states he has looked into a dental appliance but appointment still pending with dentistry. Patient trying to sleep on side and doing fairly good job of it per pt. Regarding Klonopin, taking 0.5mg nightly and thinks that since on it has more energy on some days. States he has still woken up screaming. Frequency of behaviors during the night has reduced -- still occur later in the night. Pt wakes and goes back to sleep. No injuries. tells him behaviors are still present but not to the degree he was. No side effects on medications. Moved prozac earlier in the day. No ETOH prior to bed but may have drink with dinner. Admits to rare cannabis use. No issues falling asleep. Still tossing through the night. Still thinks wakes about 5 times per night. Bedtime about 10-11PM. Waking to start the day about 7AM. For most part refreshed in AM. Unclear as to reason Elavil was increased to 20mg nightly.as could exacerbate RBD. Note when asked specifically about sleep associated with behaviors during the night, pt is denying nightmares or episodes of waking up in panic or night terror type behavior. PHQ 9 Data More data exists 06/27/2023 03/21/2023 01/09/2023 PHQ-9 All Questions Little interest or pleasure in doing things 1 1 1 Feeling down, depressed, or hopeless 1 1 1 Trouble falling or staying asleep, or sleeping too much 3 3 1 Feeling tired or having little energy 3 2 1 Poor appetite or overeating 1 1 1 Feeling bad about yourself - or that you are a failure or have let yourself or your family down 1 1 0 Trouble concentrating on things, such as reading the newspaper or watching television 1 2 0 Moving or speaking so slowly that other people could have noticed. Or the opposite - being so fidgety or restless that you have been moving around a lot more than usual 0 0 0 Thoughts that you would be better off , or of hurting yourself in some way 0 0 0 PHQ-9 Score 11 11 5 Pt did not complete other questionnaires. REVIEW OF SYSTEMS GENERAL:No weight loss, malaise or fevers. HEENT:Negative for frequent or significant headaches, No changes in hearing or vision, no nose bleeds or other nasal problems RESPIRATORY: Negative for cough, wheezing or shortness of breath. CARDIOVASCULAR: Negative for chest pain, leg swelling or palpitations. GASTROINTESTINAL: Negative for abdominal discomfort, blood in stools or black stools or change in bowel habits GENITOURINARY: No history of dysuria, frequency or incontinence MUSCULOSKELETAL: Negative for joint pain or swelling, back pain or muscle pain. NEUROLOGIC:Negative for focal numbness or weakness, headaches and dizziness or syncope, vision changes, speech/languag changes - EXCEPT that as per HPI above. LAB/IMAGING: Those performed since patient's last visit have been reviewed. WBC (k/uL) Date Value 03/29/2023 7.42 RBC (m/uL) Date Value 03/29/2023 4.52 Hemoglobin (g/dL) Date Value 03/29/2023 14.3 Hematocrit (%) Date Value 03/29/2023 42.5 MCV (fL) Date Value 03/29/2023 94.0 MCH (pg) Date Value 03/29/2023 31.6 MCHC (g/dL) Date Value 03/29/2023 33.6 RDW-CV (%) Date Value 03/29/2023 11.9 Platelet Count (k/uL) Date Value 03/29/2023 179 MPV (fL) Date Value 03/29/2023 10.2 Glucose (mg/dL) Date Value 07/31/2023 76 BUN (mg/dL) Date Value 07/31/2023 16 Creatinine (mg/dL) Date Value 07/31/2023 1.16 Sodium (mmol/L) Date Value 07/31/2023 141 Potassium (mmol/L) Date Value 07/31/2023 4.6 Chloride (mmol/L) Date Value 07/31/2023 103 CO2 (mmol/L) Date Value 07/31/2023 26 Protein, Total (g/dL) Date Value 07/31/2023 6.8 Albumin (g/dL) Date Value 07/31/2023 4.6 Calcium, Total (mg/dL) Date Value 07/31/2023 9.5 Alkaline Phosphatase (U/L) Date Value 07/31/2023 64 Bilirubin, Total (mg/dL) Date Value 07/31/2023 0.5 AST (U/L) Date Value 07/31/2023 20 ALT (U/L) Date Value 07/31/2023 7 (L) Hep C Antibody IA (no units) Date Value 05/13/2019 Negative MEDICATIONS: amitriptyline (ELAVIL) 10 mg tablet Take 2 tablets by mouth daily at bedtime. rosuvastatin (CRESTOR) 20 mg tablet Take 1 tablet by mouth once daily. FLUoxetine (PROZAC) 40 mg capsule Take 1 capsule by mouth once daily. clonazePAM (KLONOPIN) 0.5 mg tablet Take 1/2 tabet 30 minutes prior to bedtime. If still symptoms, please increase to 1 tablet 30 minutes prior to bedtime. finasteride (PROSCAR) 5 mg tablet Take 1 tablet by mouth once daily. dicyclomine (BENTYL) 10 mg capsule Take 1 capsule by mouth before meals and at bedtime. For bowels/irritable bowels omeprazole (PRILOSEC) 20 mg capsule Take 1 capsule by mouth once daily. 30 min before breakfast HISTORIES PAST MEDICAL HISTORY Diagnosis Date Arthritis Colon polyps 03/26/2010 Dr. Salty Rodrigues, by c scope Depression Dyslipidemia Hyperlipemia BOBBY (obstructive sleep apnea) CPAP Personal history of colonic polyps 03/10/2016 tubular adenoma Sleep apnea FAMILY HISTORY Problem Relation Age of Onset Emphysema Mother 62 Colon Cancer Brother 58 other (black lung) Maternal Grandfather Heart Paternal Grandmother Heart Paternal Grandfather No Ocular Disease No Family History SOCIAL HISTORY Social History Tobacco Use Smoking status: Former Packs/day: 1.25 Years: 35.00 Additional pack years: 0.00 Total pack years: 43.75 Types: Cigarettes Quit date: 02/20/2005 Years since quittin.5 Smokeless tobacco: Never Vaping Use Vaping Use: Never used Substance Use Topics Alcohol use: Yes Alcohol/week: 1.3 - 2.6 standard drinks of alcohol Types: 1 - 2 Mixed Drinks per week Comment: 1-2 drinks per day Drug use: Yes Frequency: 7.0 times per week Types: Marijuana Comment: uses daily PHYSICAL EXAMINATION There were no vitals taken for this visit. GENERAL EXAM: General appearance: NAD, pleasant. HEENT: NC/AT, nasal congestion absent, no oral lesions, membranes moist. NECK: ROM nml. Lungs: No audible cough, wheeze, sob. NEUROLOGICAL EXAM: General: Awake, alert, oriented x3 (person,place,time), fluent, no dysarthria; comprehension, naming, repetition intact. CN: EOMI, face symmetric, hearing is intact to finger rub bilaterally, palate and tongue movements are intact and symmetric. SCM and trapezius strength normal. Motor: RAMIREZ equal and symmetric. Coordination: FNF, SUZETTE intact. No tremors. Gait: Stable. Assessment and Plan: ASSESSMENT/PLAN: 1. BOBBY (obstructive sleep apnea) - ICD9: 327.23, ICD10: G47.33 (primary diagnosis) Patient with known positional BOBBY (moderate supine and normal off-supine). While currently treating with positional therapy, attempting to get in with dentistry for oral appliance. Will reach out to dentistry to try and get pt sooner appointment. Besides BOBBY disrupting sleep, untreated BOBBY could also exacerbate parasomnias or RBD type behaviors. Advised pt not to drive or operate heavy machinery if sleepy. 2. PLMD (periodic limb movement disorder) - ICD9: 327.51, ICD10: G47.61 No RLS symptoms but leg kicking can occur during night. Prozac moved to AM. Some decrease in movements since on Klonopin. No ETOH prior to bed. Will increase Klonopin as below. 3. RBD (REM behavioral disorder) - ICD9: 327.42, ICD10: G47.52 History remains suggestive of RBD. Pt with rare cannabis use and while has daily glass of ETOH has moved to earlier in day with meal. Other exacerbating factors including BOBBY are being evaluated and treated and SSRI moved to AM. Still on Elavil with dose recently increased. I was considering having patient stop, but for now, will have patient decrease dose back to 10mg nightly. As symptoms have improved with Klonopin use, will increase dose from 0.5mg to 1.0mg prior to bedtime. SE and ADRs d/w pt. Advised pt of interactions of benzos with ETOH as well as possible effects benzos might have on BOBBY. He expresses understanding. D/w pt means of safe guarding house to avoid injury. Follow up in person with Saul Colmenares CNP in 4 weeks in [place]. At that time will need UDS and urine benzo confirm (annual lab). Would also try to stop Amitriptyline at that time if no contraindications. Jorge Reddy MD I spent a total of 30+ minutes on the date of the service which included preparing to see the patient, [id number] patient care, completing clinical documentation, obtaining and/or reviewing separately obtained history, performing a medically appropriate examination, counseling and educating the patient/family/caregiver, and ordering medications, tests, or procedures. PDMP website checked and validated. All prescriptions have been APPROPRIATELY filled. No suspicious activity was identified. 08/30/2023 by Jorge Reddy MD documented in this encounter [facility] 08-15-2023 History of Present illness Narrative 1. Cortical age-related cataract, bilateral Mild cortical and NS both eyes Educated patient on condition- will monitor 2. Myopia, bilateral 3. Presbyopia Okay to continue with current glasses for now [facility]) Went over refractive surgery options vs waiting for cat surgery in future Educated pt on need for reading glasses if refractive surgery was done- opted to hold off Patient opts [facility] Can follow-up with [facility] as needed Isadora Brown, DAVIN August 15, 2023 1:45 PM documented in this encounter [facility] 07-31-2023 History of Present illness Narrative CC: Kacey Bentley is a 63 year old male who presents to the office for follow up HPI: BOBBY, he is going to be seeing Dental specialist to get a mouth guard fitted to help with his mild BOBBY which is mostly positional when he is laying on his back. HTN, HPL, he has been seen by the Cardiologsit Dr. Stinson. He is taking the Crestor statin 20 mg a day and supposed to have his labs rechecked in September. He has been working on good dietary choices Mood, PTSD, insomnia, feels that the combination of the amitriptyline 10 mg and the klonopin in the evening has been helping his mood and sleep. Seeing Neurologist Dr. Reddy for care. GERD. Stable, taking omeprazole PAST MEDICAL HISTORY Diagnosis Date Arthritis Colon polyps 03/26/2010 Dr. 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 rosuvastatin (CRESTOR) 20 mg tablet Take 1 tablet by mouth once daily. FLUoxetine (PROZAC) 40 mg capsule Take 1 capsule by mouth once daily. clonazePAM (KLONOPIN) 0.5 mg tablet Take 1/2 tabet 30 minutes prior to bedtime. If still symptoms, please increase to 1 tablet 30 minutes prior to bedtime. finasteride (PROSCAR) 5 mg tablet Take 1 tablet by mouth once daily. dicyclomine (BENTYL) 10 mg capsule Take 1 capsule by mouth before meals and at bedtime. For bowels/irritable bowels omeprazole (PRILOSEC) 20 mg capsule Take 1 capsule by mouth once daily. 30 min before breakfast No current facility-administered medications for this visit. ALLERGIES No Known Allergies Social History Tobacco Use Smoking status: Former Packs/day: 1.25 Years: 35.00 Additional pack years: 0.00 Total pack years: 43.75 Types: Cigarettes Quit date: 02/20/2005 Years since quittin.4 Smokeless tobacco: Never Vaping Use Vaping Use: Never used Substance Use Topics Alcohol use: Yes Alcohol/week: 1.3 - 2.6 standard drinks of alcohol Types: 1 - 2 Mixed Drinks per week Comment: 1-2 drinks per day Drug use: Yes Frequency: 7.0 times per week Types: Marijuana Comment: uses daily ROS: See HPI PE: BP 124/80 Pulse 68 Temp (Src) 97 (Right Tympanic) Resp 16 Wt 203 lb (92.1kg) Gen: A&OX3, NAD, non-toxic appearing HEENT: PERRLA, EOMs intact b/l, nares without drainage, pharynx without erythema, exudate, lesions, or drainage. MMM, Uvula midline. Neck: No LAD, no thyromegaly, no meningismus. CV: RRR, no murmur Lungs: CTA b/l, no wheezing Skin: No rashes, lesions, or wounds on exposed skin. No edema, normal pulses ASSESSMENT/PLAN: 1. Well adult exam - ICD9: V70.0, ICD10: Z00.00 (primary diagnosis) - Counseled on healthy diet and regular exercise - HEMOGLOBIN A1C - C-REACTIVE PROTEIN - COMPREHENSIVE METABOLIC PANEL 2. Anxiety with depression - ICD9: 300.4, ICD10: F41.8 Improving F/u with Neurologist regarding sleep and night sandoval. May need adjusted medication or trial of Minipress? - AMITRIPTYLINE 10 MG TABLET 3. Vision abnormalities - ICD9: 368.9, ICD10: H53.9 He is interested in corrective vision surgery, unsure if he would be a candidate - CONSULT TO OPTOMETRY 4. Major depressive disorder, recurrent episode, moderate (HCC) - ICD9: 296.32, ICD10: F33.1 See abvoe, continue same medications. 5. BOBBY (obstructive sleep apnea) - ICD9: 327.23, ICD10: G47.33 He is in process of getting fitted for mouth guard 6. Fatigue, unspecified type - ICD9: 780.79, ICD10: R53.83 stable 7. Subclinical hypothyroidism - ICD9: 244.8, ICD10: E03.8 - Instructed patient on importance of taking on an empty stomach either first thing in the morning or at bedtime. - continue current dose of Synthroid 8. Hypercholesteremia - ICD9: 272.0, ICD10: E78.00 stable 9. Nightmares - ICD9: 307.47, ICD10: F51.5 See above Jules Haynes DO Return if no improvement. Follow up with Jules Haynes DO. To ER if develops chest pain, shortness of breath. Discussed risks, benefits, alternatives, and potential side effects of medications. Patient/Guardian expressed understanding and agreed with the plan. See patient instructions. Jules Haynes DO [address] [place] [address] documented in this encounter [facility] 06-27-2023 History of Present illness Narrative Images from the original note were not included. FOLLOW UP - PSYCHIATRIC PROGRESS NOTE PATIENT: Kacey Bentley DATE: June 27, 2023 Visit Type:In person All information is from Patient report except when noted. This evaluation is NOT intended for forensic, disability or child custody purposes. Some elements were copied from the previous note which have been updated where appropriate and reflect current decision making from today June 27, 2023. CC: Presenting today for follow up regarding psychiatric medication management. HPI: Treatment Plan from Last Visit on 03/21/2023: 1. Message for referral for Behavioral Medicine at [place] 2. Continue Prozac at same dose 3. Follow up visit in 3 months Today Kacey shares that he saw Dr. Reddy regarding his sleep concerns. He is not able to do the inspire and is going to be seeing dentistry for a mouth guard. He denies any side effects from the Prozac. Feels anxiety is well managed. He has aortic aneurysms and abdominal aneurysms. He has an appointment with a provider at the [place] on June 29. Unsure who he is meeting with. Discussed getting resources regarding PTSD. He shares that he has struggled with trauma dreams and acting out of his dreams for over 40 years. He continues to get up at night. Tends to act out his dreams in an aggressive manner. Interval Progress: Same PATIENT DATA: Generalized Anxiety Disorder Scale (CHRISTOPHER-7) 01/09/2023 03/21/2023 06/27/2023 CHRISTOPHER - 7 SCORES Score 2 8 6 (0-4) minimal anxiety, (5-9) mild anxiety, (10-14) moderate anxiety, (15-21) severe anxiety Patient Health Questionnaire (PHQ-9) 01/09/2023 03/21/2023 06/27/2023 PHQ-9 Score 5 11 11 (0-4) minimal depression, (5-9) mild depression, (10-14) moderate depression, (15-19) moderately severe depression, (20-27) severe depression PAST MEDICAL HISTORY Diagnosis Date Arthritis Colon polyps 03/26/2010 Dr. Salty Rodrigues, by c scope Depression Dyslipidemia Hyperlipemia BOBBY (obstructive sleep apnea) CPAP Personal history of colonic polyps 03/10/2016 tubular adenoma Sleep apnea PAST SURGICAL HISTORY Procedure Laterality Date CARPAL TUNNEL 2012 both wrists COLONOSCOPY 2010 COLONOSCOPY GEN ANES 07/09/2020 Repeat in 5 years EGD 07/10/2020 PAST SURGICAL HISTORY OF Bone tumor age 14 PAST SURGICAL HISTORY OF deviated septum repair PROCEDURE RM-COLONSCOPY W/BX 11/2017 ALLERGIES No Known Allergies Current Outpatient Medications on File Prior to Visit Medication Sig clonazePAM (KLONOPIN) 0.5 mg tablet Take 1/2 tabet 30 minutes prior to bedtime. If still symptoms, please increase to 1 tablet 30 minutes prior to bedtime. amitriptyline (ELAVIL) 10 mg tablet Take 2 tablets by mouth daily at bedtime. FLUoxetine (PROZAC) 40 mg capsule Take 1 capsule by mouth once daily. finasteride (PROSCAR) 5 mg tablet Take 1 tablet by mouth once daily. dicyclomine (BENTYL) 10 mg capsule Take 1 capsule by mouth before meals and at bedtime. For bowels/irritable bowels rosuvastatin (CRESTOR) 10 mg tablet take one tablet by mouth every day at bedtime omeprazole (PRILOSEC) 20 mg capsule Take 1 capsule by mouth once daily. 30 min before breakfast No current facility-administered medications on file prior to visit. ROS: See HPI PFSH: See HPI VITAL SIGNS: 06/27/23 1123 BP: 142/74 Pulse: 84 Weight: 93.6 kg (206 lb 6.4 oz) Last 3 Encounter BP Readings: Date: BP: 06/27/2023 142/74 06/23/2023 138/78 05/22/2023 127/82 MENTAL STATUS EXAMINATION: Mental Status Exam General/Sensorium: Alert Orientation: AAOx3 Appearance: Casually dressed and appears well groomed and stated age Eye contact: Appropriate Demeanor: Withdrawn Motor activity: Normal Speech: - reserved and blunted Mood: Anxious Affect: Congruent with mood Thought process: Linear, logical, and goal-directed Associations: Normal Thought content: Discussing stressors and focused on history, symptoms, and management Suicidal ideation: SI: no Plan: no Intent: no Homicidal ideation: HI: no Plan: no Intent: no Abnormal/psychotic thoughts: Absent Perceptions: He does not appear internally stimulated. Intelligence: Average Attention: Intact Memory: Short-term: Intact Long-term: Intact Language: Intact Fund of knowledge: Fair Insight: Poor Judgment: Poor Gait: Steady Station: Sitting DATA REVIEWED: Psychiatric scales, Electronic medical record, labs, science consultant report, and PDMP report PDMP website checked and validated. All prescriptions have been APPROPRIATELY filled. No suspicious activity was identified. 06/27/2023 by Danisha Cummins APRN.CNP DIAGNOSIS: PTSD, chronic Generalized Anxiety Disorder Marijuana use Alcohol use GAF: -60-51 Moderate symptoms or moderate difficulty in social, occupational or school functioning. TREATMENT PLAN: Continue Prozac at the same dose. Reiterated Dr. Reddy's recommendation of taking it in the morning. Utilize Klonopin for REM behavioral disorder and periodic limb movement disorder as recommend by Neurology. [facility]. MEDICATION CHANGES: Current medication regimen unchanged. See above Risks and benefits of the medication, including any black box warnings, were discussed with the patient. Patient is aware to reach out with any questions, concerns, or worsening of symptoms prior to the next appointment. Patient educated on risks of substance use in combination with medications and advised that any substance use along with medications may alter their effectiveness. Follow Up: 3 months I spent a total of 33 minutes on the date of the service which included preparing to see the patient, [id number] patient care, completing clinical documentation, and counseling and educating the patient/family/caregiver, ordering medications/labs. ADD ON PSYCHOTHERAPY CODE : No SIGNATURE: Danisha Cummins APRN.CNP PATIENT NAME: Kacey Bentley DATE: June 27, 2023 TIME: 11:44 AM documented in this encounter [facility] 06-23-2023 History of Present illness Narrative NEW PATIENT (CONSULT) HISTORY AND PHYSICAL EXAM PRIMARY CARE PHYSICIAN: Jules Haynes DO REASON FOR CONSULT: See below REFERRING PHYSICIAN: Virginia Lyon APRN* CHIEF COMPLAINT: BOBBY, Acting out dreams, EDS Consultation requested by Virginia Lyon APRN* for an opinion regarding chief complaint of Patient presents with: New Patient: Pt reported Hx night terrors, fatigue. and my final recommendations will be communicated back to the requesting physician by way of shared medical record or letter via US mail. HISTORY OF PRESENT ILLNESS: Kacey Bentley is a 63 year old male, BMI 28.31 kg/m2 with a PMH significant for BOBBY. Patient underwent sleep study on 11/15/22 showing AHI of 10.2 with supine index of 22.9. Note the RDI was 22.0 with a supine RDI of 45.8. Study also showed PLMI of 25.8 with PLM arousal index of 3.3 Last used CPAP 15 years ago and refuses to use it. RSWA was 10% not meeting electrodiagnostic criteria for RBD. The patient has primary complains of exhaustion. Never finds sleep to be restorative. No issues falling asleep at about 10PM. No RLS symptoms. Wakes up throughout the night. Sometimes due to bad dreams, other times does not know why. Pt does not recall the dreams the next day. Dreams always involve being ambushed or being in fights. Pt has no recollection of specific trauma but spent time in the [email or web address]. Per on many nights around 2AM, starts acting out dreams. Patient will kick, move arms, screams out. Has fallen out of bed due to dreams. Sometimes will talk and say things. Does have history of obsessive compulsive behaviors such as counting telephone poles or repeating last sentences he heard in his head. Has to wake in the AM by about 7AM. Hits snooze 2 or 3 times. No issues falling asleep driving to work but if long trip might start to doze. Comes home to take naps. Does snore if sleeps on back. No family history of PD or other neurologic disease. No history of head trauma or stroke. No s/s of PD on history incluidng no micro graphia, change in gait... 6oz whisky prior to bedtime. Daily cannabis use - for calming. REVIEW OF SYSTEMS GENERAL:No weight loss, malaise or fevers. HEENT:Negative for frequent or significant headaches, No changes in hearing or vision, no nose bleeds or other nasal problems NECK:Negative for lumps, goiter, pain and significant neck swelling RESPIRATORY: Negative for cough, wheezing or shortness of breath. CARDIOVASCULAR: Negative for chest pain, leg swelling or palpitations. GASTROINTESTINAL: Negative for abdominal discomfort, blood in stools or black stools or change in bowel habits GENITOURINARY: No history of dysuria, frequency or incontinence MUSCULOSKELETAL: Negative for joint pain or swelling, back pain or muscle pain. NEUROLOGIC:Negative for focal numbness or weakness, headaches and dizziness or syncope, vision changes, speech/language changes, changes in gait or falls -- besides those complaints as above in HPI. SKIN:Negative for lesions, rash, and itching. PSYCHIATRIC: See HPI. HEMATOLOGIC/LYMPHATIC/IMMUNOLOGIC :Negative for prolonged bleeding, bruising easily or swollen nodes. ENDOCRINE: Negative for cold or heat intolerance, polyuria, polydipsia and goiter. The remainder of the ROS was reviewed and is negative. LAB/IMAGING: Reviewed and include: WBC (k/uL) Date Value 03/29/2023 7.42 RBC (m/uL) Date Value 03/29/2023 4.52 Hemoglobin (g/dL) Date Value 03/29/2023 14.3 Hematocrit (%) Date Value 03/29/2023 42.5 MCV (fL) Date Value 03/29/2023 94.0 MCH (pg) Date Value 03/29/2023 31.6 MCHC (g/dL) Date Value 03/29/2023 33.6 RDW-CV (%) Date Value 03/29/2023 11.9 Platelet Count (k/uL) Date Value 03/29/2023 179 MPV (fL) Date Value 03/29/2023 10.2 Glucose (mg/dL) Date Value 03/29/2023 80 BUN (mg/dL) Date Value 03/29/2023 11 Creatinine (mg/dL) Date Value 03/29/2023 1.07 Sodium (mmol/L) Date Value 03/29/2023 139 Potassium (mmol/L) Date Value 03/29/2023 4.8 Chloride (mmol/L) Date Value 03/29/2023 104 CO2 (mmol/L) Date Value 03/29/2023 28 Protein, Total (g/dL) Date Value 09/12/2022 7.3 Albumin (g/dL) Date Value 09/12/2022 4.9 Calcium, Total (mg/dL) Date Value 03/29/2023 9.4 Alkaline Phosphatase (U/L) Date Value 09/12/2022 64 Bilirubin, Total (mg/dL) Date Value 09/12/2022 0.7 AST (U/L) Date Value 09/12/2022 17 ALT (U/L) Date Value 05/22/2023 7 (L) Hep C Antibody IA (no units) Date Value 05/13/2019 Negative MEDICATIONS: amitriptyline (ELAVIL) 10 mg tablet Take 2 tablets by mouth daily at bedtime. FLUoxetine (PROZAC) 40 mg capsule Take 1 capsule by mouth once daily. finasteride (PROSCAR) 5 mg tablet Take 1 tablet by mouth once daily. dicyclomine (BENTYL) 10 mg capsule Take 1 capsule by mouth before meals and at bedtime. For bowels/irritable bowels rosuvastatin (CRESTOR) 10 mg tablet take one tablet by mouth every day at bedtime omeprazole (PRILOSEC) 20 mg capsule Take 1 capsule by mouth once daily. 30 min before breakfast HISTORIES PAST MEDICAL HISTORY Diagnosis Date Arthritis Colon polyps 03/26/2010 Dr. Salty Rodrigues, by c scope Depression Dyslipidemia Hyperlipemia BOBBY (obstructive sleep apnea) CPAP Personal history of colonic polyps 03/10/2016 tubular adenoma Sleep apnea Aortic and abdominal aneurysm. FAMILY HISTORY Problem Relation Age of Onset Emphysema Mother 62 Colon Cancer Brother 58 Heart Paternal Grandmother Heart Paternal Grandfather other (black lung) Maternal Grandfather SOCIAL HISTORY Social History Tobacco Use Smoking status: Former Packs/day: 1.25 Years: 35.00 Additional pack years: 0.00 Total pack years: 43.75 Types: Cigarettes Quit date: 02/20/2005 Years since quittin.3 Smokeless tobacco: Never Vaping Use Vaping Use: Never used Substance Use Topics Alcohol use: Yes Alcohol/week: 1.3 - 2.6 standard drinks of alcohol Types: 1 - 2 Mixed Drinks per week Comment: 1-2 drinks per day Drug use: Yes Frequency: 7.0 times per week Types: Marijuana Comment: uses daily PHYSICAL EXAMINATION BP 138/78 Pulse 78 Resp 16 Wt 92.1 kg (203 lb) SpO2 96% BMI 28.31 kg/m GENERAL EXAM: General appearance: NAD, pleasant. HEENT: NC/AT, nasal congestion absent, no oral lesions, membranes moist. Greer IV. NECK: ROM nml. Lungs: CTA bilaterally. CV: RRR nl S1, S2. Extr: No cyanosis, clubbing or edema. Skin: Cool to touch. NEUROLOGICAL EXAM: General: Awake, alert, oriented x3 (person,place,time), speech fluent, no dysarthria; comprehension, naming, repetition intact. CN: PERRL, EOMI and without nystagmus, VFF to confrontation, facial sensation and strength are normal and symmetric, hearing is intact to finger rub bilaterally, palate and tongue movements are intact and symmetric. SCM and trapezius strength normal. Motor: Normal tone, bulk and strength (5/5) bilaterally (throughout extremities x4). Coordination: FNF, SUZETTE, HTS intact. No tremors. Sensation: LT, vibration, temperature intact throughout. No evidence of neglect. Gait: Stable with normal stride and arm swing. Assessment and Plan: ASSESSMENT/PLAN: 1. BOBBY (obstructive sleep apnea) - ICD9: 327.23, ICD10: G47.33 (primary diagnosis) 2. RBD (REM behavioral disorder) - ICD9: 327.42, ICD10: G47.52 3. PLMD (periodic limb movement disorder) - ICD9: 327.51, ICD10: G47.61 Patient with complaints of fragmented sleep, daytime sleepiness, acting out dreams... as above. Suspect patient with multiple sleep disorders contributing to symptoms. These include the following: -BOBBY for which patient tried PAP in past but could not tolerate. He looked into Inspire, but after discussing with patient today, his preference would be for an oral appliance which I do feel would be an appropriate alternative given positional nature of sleep apnea and pt's preference to not sleep in the supine position. Reviewed prior sleep studies with pt. Again, based on AASM guidelines his AHI would be in the moderate range overall and severe when supine (CMS guideline results above). Discussed with patient and his : the physiology of OSAS, medical conditions associated with OSAS (DM, HTN, CAD, Depression, Stroke, Headache...) and treatment options (UPPP, Dental appliances, CPAP...). Referral will be made to dentistry and Dr. Perea for appliance. In meantime will use pillows to encourage off-supine sleep. Explained to patient that ETOH use prior to bed could exacerbate BOBBY and advised that if he is to have a drink do so no later than dinner time. Untreated BOBBY may also be resulting in pseudo RBD or or exacerbating his acting out dreams -- although suspect RBD per history provided as below. Advised patient to avoid activities that could harm self or others when tired/sleepy, including driving and/or operating heavy machinery. Encouraged weight loss, and continued compliance with other medications. -RBD with patient acting out dreams during the second half of the night to the point that such actions have resulted in injury. While RSWA did not meet electrodiagnostic criteria for RBD, highly suspect his dx by history. No history of neurodegenerative disorders but pt instructed on relationship between RBD and later development of such disorders. Discussed means of ensuring safety including moving furniture away from the bed. Encouraged pt to move ETOH to an earlier hour if he was to have a drink. Also advised pt to move Prozac (SSRIs) to the AM. D/w pt treatment options but given severity of events in the past (injuries) and that he also has PLMs, will first try to treat with Klonopin 0.25 to 0.5mg QHS. SE and ADRs of Klonopin d/w pt in detail. He will need a UDS and bezon confirmation at 3 month follow up. Note pt does occasionally use minimal cannabis - we have been made aware and explained possible influence of it on meds and conditions. Also note, MRI brain in 2015 did not show intracranial source of symptoms and non focal neuro exam. -PLMD with patient having no RLS symptoms but PLMs on PSG as well as per witnessed history. Possible SSRIs exacerbating and having them move SSRIs to AM rather than PM hours. No history of Fe deficiency. No definite family history of PLMs. At this time will treat with Klonopin as above (treating 2 conditions with 1 med to reduce risk of polypharmacy). Jorge Reddy MD I spent a total of 66 minutes on the date of the service which included preparing to see the patient, [id number] patient care, completing clinical documentation, obtaining and/or reviewing separately obtained history, performing a medically appropriate examination, counseling and educating the patient/family/caregiver, ordering medications, tests, or procedures, and communicating results to the patient/family/caregiver. PDMP website checked and validated. All prescriptions have been APPROPRIATELY filled. No suspicious activity was identified. 06/23/2023 by Jorge Reddy MD documented in this encounter [facility] 06-01-2023 Miscellaneous Notes Patient has been identified by name and date of : Yes Patient phones for refill(s): Requested Prescriptions Pending Prescriptions Disp Refills amitriptyline (ELAVIL) 10 mg tablet 180 tablet 3 Sig: Take 2 tablets by mouth daily at bedtime. Date of last office visit in primary care: 03/31/2023 Date of next office visit in primary care: 06/02/2023 Please advise. Thank you. Cheryl Genao LPN. documented in this encounter [facility] 05-22-2023 History of Present illness Narrative Images from the original note were not included. [facility] Department of Cardiovascular Medicine SECTION OF PREVENTIVE CARDIOLOGY Kacey Bentley 05/22/2023 CURRENT MEDS: Current Outpatient Medications Medication Sig FLUoxetine (PROZAC) 40 mg capsule Take 1 capsule by mouth once daily. finasteride (PROSCAR) 5 mg tablet Take 1 tablet by mouth once daily. dicyclomine (BENTYL) 10 mg capsule Take 1 capsule by mouth before meals and at bedtime. For bowels/irritable bowels rosuvastatin (CRESTOR) 10 mg tablet take one tablet by mouth every day at bedtime amitriptyline (ELAVIL) 10 mg tablet Take 2 tablets by mouth daily at bedtime. omeprazole (PRILOSEC) 20 mg capsule Take 1 capsule by mouth once daily. 30 min before breakfast No current facility-administered medications for this visit. ALLERGIES: ALLERGIES No Known Allergies CHIEF COMPLAINT: Kacey Bentley is a 63 year old White male seen today. Patient presents with: CARD New Patient Consult: Aortic embolism HISTORY OF PRESENT CARDIOVASCULAR ILLNESS: 63 year old male with PTSD, HL, thoracic aorta aneurysm 3.9 cm, bilateral mild Carotid stenosis who is here to establish care. he drinks about 2-3 drinks bourbon (6-8 oz) he smokes 1 join every 4 days. quit smoking 2006 no chest pain, SOB, RAMOS CARDIAC RISK FACTORS: Dyslipidemia : N/A Exercise: One to two per week Avg. Sleep Hours Per Night?: 8.5 CVD EVENTS: 02/20/22 Psychiatric Disease : Sleep apnea : FAMILY AND SOCIAL HISTORY: Lifestyle Employer And Job Title: None on file Years Of Education Completed: Not specified Marital Status: Tobacco use in the last year: No Alcohol Use: Approximately .78 - 1.56 oz/week [which includes 1-2 Mixed Drinks per week] (1-2 drinks per day) REVIEW OF SYSTEMS: CONSTITUTIONAL: No Changes. HEENT:Negative for frequent or significant headaches, No changes in hearing or vision, no nose bleeds or other nasal problems RESPIRATORY: Negative for cough, hemoptysis, wheezing, COPD, dyspnea or shortness of breath CARDIOVASCULAR: Negative for chest pain, leg swelling, hypertension, CHF or palpitations GI: No nausea, vomiting, or diarrhea MUSCULOSKELETAL: Negative for joint pain or swelling, back pain or muscle pain SKIN: Negative for lesions, rash, and itching PSYCH: +PTSD. HEMATOLOGY/LYMPHOLOGY Negative for prolonged bleeding, bruising easily or swollen nodes ENDOCRINE: Negative for cold or heat intolerance, polyuria, polydipsia and goiter NEURO: No history of headaches, syncope, paralysis, seizures or tremors PHYSICAL EXAMINATION: Vital Signs and General Appearance BP 127/82 (BP Site: Left Arm, BP Position: Sitting, BP Cuff Size: Large Adult) Pulse 74 Ht 180.3 cm (5' 11) Wt 91.6 kg (202 lb) SpO2 100% BMI 28.17 kg/m Average Blood Pressure: 127/82 BMI 28.17 kg/(m^2) Well developed, well nourished, alert, active 63 year old male in no apparent distress. Skin: Xanthomas - No Neck: Normal, supple with full range of motion Lungs: Clear to auscultation and percussion Abdomen: Soft, non-tender. Bowel sounds normal. No masses or organomegaly. Lower Extremities: Normal exam of the extremities Neurological:Oriented to person, place and time and No focal motor or sensory deficits Pulses: Carotid: Left: 2+, Right: 2+, Bruit: No Posterior Tibial:Right 2+, Posterior Tibial:Left 2+, Femoral: Left: 2+, Right: 2+, Bruit: No Dorsalis Pedis:Right 2+, Dorsalis Pedis:Left 2+, Heart Sounds: S1: Normal S2: Normal S3: Absent S4: Absent Murmurs: Systolic Murmur Present: No Diastolic Murmur Present: No Xanthomas: No CLINICAL TESTING RESULTS: I have personally reviewed the following: Ejection Fraction: Normal (>50%) EKG Tracing: NSR LAB RESULTS: PATIENT ENTERED QUESTIONNAIRE SCORES 03/21/2023 PHQ-9 PHQ-2 Score 2 PHQ-9 Score 11 03/21/2023 01/09/2023 12/26/2022 CHRISTOPHER - 2/7 SCORES CHRISTOPHER-2 Score 3 0 2 CHRISTOPHER-7 Score 8 2 6 01/09/2023 10/05/2022 06/17/2022 PROMIS Global Health - (T-Scores - the mean of general population = 50. Five points is a clinically meaningful difference.) Physical T-Score 39.8 47.7 54.1 Mental T-Score 41.1 43.5 Consultation requested by Self for an opinion regarding hyperlipidemia, carotid stenosis, Coronary artery calcification , and my final recommendations will be communicated back to the requesting physician by way of shared medical record or letter. IMPRESSION and PLAN: hyperlipidemia - on crestor. his LDL goal is <70 carotid stenosis - bilateral ICA stenosis. repeat in 2024. thoracic aorta aneurysm - 3.9 cm. abd aorta mid 2.9 cm. repeat testing in 2024. 4. decrease ETOH Ira Stinson MD AMBULATORY PATIENT EDUCATION Topic: Instruction Provided To: Patient Barriers: None Motivation to Learn: Interested Methods of Instruction: Verbal instruction and/or handouts. Patient Leans Best By: Multiple Methods Patient Verbalized: Understanding documented in this encounter [facility] 04-07-2023 Miscellaneous Notes Spoke with spouse advised a sooner appointment for / has been scheduled and added to wait list if any other cancellations. Thank you for the update on the vitamin D3/B12, this has been updated in his chart. Are we able to get him in with anyone in Dr. Reddy's office before September? Virginia Lyon APRN.SFDC ARCHITECT documented in this encounter [facility] 03-31-2023 History of Present illness Narrative Chief Complaint Patient presents with: Fatigue HPI Kacey Bentley is a 62 year old male who presents here today for Above Complaints. Currently: Is extremely fatigued. Can sleep the entire weekend and get out of bed only to urinate. Can get up if he needs to, for example to go to [employer]. States does have some known depression, PTSD. Continues with nightmares r/t PTSD, but these have improved somewhat. Denies SI/HI. Drinks a minimum of 5-6 shots of whiskey nightly. Past medical history, appointments, medications, allergies reviewed. Previous Medical History PAST MEDICAL HISTORY Diagnosis Date Arthritis Colon polyps 03/26/2010 Dr. Salty Rodrigues, by c scope Depression Hyperlipemia BOBBY (obstructive sleep apnea) CPAP Personal history of colonic polyps 03/10/2016 tubular adenoma Previous Surgical History PAST SURGICAL HISTORY Procedure Laterality Date CARPAL TUNNEL 2012 both wrists COLONOSCOPY 2010 COLONOSCOPY GEN ANES 07/09/2020 Repeat in 5 years EGD 07/10/2020 PAST SURGICAL HISTORY OF Bone tumor age 14 PAST SURGICAL HISTORY OF deviated septum repair PROCEDURE RM-COLONSCOPY W/BX 11/2017 Family History FAMILY HISTORY Problem Relation Age of Onset Emphysema Mother 62 Colon Cancer Brother 58 Heart Paternal Grandmother Heart Paternal Grandfather other (black lung) Maternal Grandfather Patient Allergies ALLERGIES No Known Allergies Current Medications Current Outpatient Medications on File Prior to Visit Medication Sig FLUoxetine (PROZAC) 40 mg capsule Take 1 capsule by mouth once daily. finasteride (PROSCAR) 5 mg tablet Take 1 tablet by mouth once daily. dicyclomine (BENTYL) 10 mg capsule Take 1 capsule by mouth before meals and at bedtime. For bowels/irritable bowels rosuvastatin (CRESTOR) 10 mg tablet take one tablet by mouth every day at bedtime amitriptyline (ELAVIL) 10 mg tablet Take 2 tablets by mouth daily at bedtime. omeprazole (PRILOSEC) 20 mg capsule Take 1 capsule by mouth once daily. 30 min before breakfast No current facility-administered medications on file prior to visit. Social History Social History Tobacco Use Smoking status: Former Packs/day: 1.25 Years: 35.00 Additional pack years: 0.00 Total pack years: 43.75 Types: Cigarettes Quit date: 02/20/2005 Years since quittin.1 Smokeless tobacco: Never Vaping Use Vaping Use: Never used Substance Use Topics Alcohol use: Yes Alcohol/week: 1.3 - 2.6 standard drinks of alcohol Types: 1 - 2 Mixed Drinks per week Drug use: Yes Frequency: 7.0 times per week Types: Marijuana Comment: uses daily Review of Symptoms REVIEW OF SYSTEMS See HPI, otherwise negative EXAM: BP 138/86 (BP Site: Left Arm, BP Position: Sitting, BP Cuff Size: Regular Adult) Pulse 86 Resp 16 Wt 92.4 kg (203 lb 12.8 oz) BMI 28.42 kg/m General Appearance: Well appearing, alert, in no acute distress, well-hydrated, well nourished.. Lungs: Lungs clear to auscultation. No wheezing, rhonchi, rales.. Heart: RRR without murmur, gallop, or rubs. No ectopy. Psychiatric: pleasant, cooperative. Health Maintenance List RSV Vaccine(1 - 1-dose 60+ series) Never done Shingrix Vaccine(2 of 2) due on 01/20/2021 Covid-19 Vaccine(2022- season) due on 10/21/2022 Annual PCP Team Chronic Disease Visit due on 12/22/2023 Colorectal Cancer Screening due on 07/09/2025 Diabetes Screening due on 03/29/2026 Prostate Cancer Screening Discussion due on 10/20/2026 Lipid Screening due on 10/23/2026 DTaP,Tdap,Td Vaccine(3 - Td or Tdap) due on 09/26/2031 Influenza Vaccine Completed Hepatitis C Screening Completed HIV Screening Completed Data reviewed Previous records, office notes ASSESSMENT/PLAN: 1. Fatigue, unspecified type - ICD9: 780.79, ICD10: R53.83 (primary diagnosis) - CONSULT TO SLEEP MEDICINE - ADULT 2. BOBBY (obstructive sleep apnea) - ICD9: 327.23, ICD10: G47.33 - CONSULT TO SLEEP MEDICINE - ADULT 3. Vivid dream - ICD9: 307.47, ICD10: R68.89 - CONSULT TO SLEEP MEDICINE - ADULT 4. Nightmares - ICD9: 307.47, ICD10: F51.5 - CONSULT TO SLEEP MEDICINE - ADULT 5. Restless sleeper - ICD9: 780.50, ICD10: G47.9 - CONSULT TO SLEEP MEDICINE - ADULT 6. Night sweats - ICD9: 780.8, ICD10: R61 - CONSULT TO SLEEP MEDICINE - ADULT 7. Alcohol abuse - ICD9: 305.00, ICD10: F10.10 Discussed cutting back on Whiskey, alcohol consumption. Virginia Lyon APRN.SFDC ARCHITECT documented in this encounter [facility] 03-30-2023 Miscellaneous Notes Pt called and is notified of providers message and instructions. Pt voices understanding. Pt scheduled tomorrow with Virginia Lyon FIELD ATTENDANT. Kimberly Vazquez RN Please let patient know that his labs all looked good. I would still recommend an appointment to be evaluated for his symptoms. Seek care in ED if worsening/severe symptoms including but not limited to SOB, chest pain, severe dizziness, worsening overall. Edna Sanabria PA-C 03/30/2023 Left message to return call. I have ordered labs. I recommend a close follow up to evaluate symptoms and review labs. Please help schedule appointment with PCP's office. Seek care sooner or in ER for worsening symptoms-chest pain, dizziness, SOB, severe pain. Edna Sanabria PA-C 03/27/2023 Images from the original note were not included. Please see pt message - Jonathan Bentley (proxy for Kacey ALVARENGA) P [facility] My Chart Rx Pool (supporting Jules Haynes, DO) [address] Haynes Would you be able to order some lab work for Jose Ramon? The exhaustion he is experiencing has increased and I am very concerned. Thank you Jonathan Bentley documented in this encounter [facility] 03-27-2023 Miscellaneous Notes Turned into TE Sherri Nixon documented in this encounter [facility] 03-21-2023 History of Present illness Narrative FOLLOW UP - PSYCHIATRIC PROGRESS NOTE Visit Type:In person Reason for Visit: Outpatient follow-up and safety monitoring of previously prescribed psychiatric medication, psychotherapy or other treatment Danisha Land APRN.TIMUR, personally performed the services described in this documentation. All medical record entries made by the SABINE student were at my direction and in my presence. I have reviewed the chart and discharge instructions (if applicable) and agree that the record reflects my personal performance and is accurate and complete. Danisha Cummins APRN.TIMUR March 27, 2023 10:54 PM CC: Follow up for psychiatric medication management HPI: Treatment plan on 01/10/2023: 1. Continue Prozac at the same dose. 2. Ref[facility] provided [facility] related to [facility] such as therapy and support groups. Visit took place with Jose Ramon present and on speaker phone and discussed health concerns: Jose Ramon is waiting for appointment with box car checker in May,. He does not qualify for [email or web address]. His C-PAP machine will be evaluated. Jose Ramon said that he's not remembering his nightmares but Jonathan confirms he is having them based on physical movements. Jose Ramon denies that Prozac is worsening nightmares or making them more vivid. Jose Ramon reports that he is waking up several times throughout the night. He says he can go back to sleep right away. He does not feel rested when he wakes up. Jose Ramon says that he last could recall his nightmares a couple of months ago. Jonathan questions if his sleeping habits are related to marijuana or alcohol. Jose Ramon says that he can try to get sleep ap[facility] treatment [facility] the [facility]. He has an appointment on April 11 for a physical. Both Jonathan and Jose Ramon voice that Prozac is okay for now. Jose Ramon denies side effects. Risks and benefits of the medication, including any black box warnings, were discussed with the patient. Interval Progress: Same PATIENT DATA: Generalized Anxiety Disorder Scale (CHRISTOPHER-7) CHRISTOPHER - 7 SCORES 12/26/2022 01/09/2023 03/21/2023 CHRISTOPHER-7 Score 6 2 8 (0-4) minimal anxiety, (5-9) mild anxiety, (10-14) moderate anxiety, (15-21) severe anxiety Patient Health Questionnaire (PHQ-9) PHQ-9 12/26/2022 01/09/2023 03/21/2023 Score 14 5 11 (0-4) minimal depression, (5-9) mild depression, (10-14) moderate depression, (15-19) moderately severe depression, (20-27) severe depression PROMIS Global Health PROMIS Global Health - (T-Scores - the mean of general population = 50. Five points is a clinically meaningful difference.) 06/17/2022 10/05/2022 01/09/2023 Physical T-Score 54.1 47.7 39.8 Mental T-Score - 43.5 41.1 PAST MEDICAL HISTORY Diagnosis Date Arthritis Colon polyps 03/26/2010 Dr. 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 90 tablet 3 FLUoxetine (PROZAC) 40 mg capsule Take 1 capsule by mouth once daily. 90 capsule 0 dicyclomine (BENTYL) 10 mg capsule Take 1 capsule by mouth before meals and at bedtime. For bowels/irritable bowels 90 capsule 2 rosuvastatin (CRESTOR) 10 mg tablet take one tablet by mouth every day at bedtime 90 tablet 3 amitriptyline (ELAVIL) 10 mg tablet Take 2 tablets by mouth daily at bedtime. 180 tablet 3 omeprazole (PRILOSEC) 20 mg capsule Take 1 capsule by mouth once daily. 30 min before breakfast 90 capsule 3 meclizine (ANTIVERT) 25 mg tab Take 1 tablet by mouth three times a day. (Patient not taking: Reported on 12/21/2022) 30 tablet 0 No current facility-administered medications for this visit. ROS: See HPI PFSH: See HPI VITAL SIGNS: 03/21/23 1351 BP: 140/70 Pulse: 80 Weight: 92.8 kg (204 lb 9.6 oz) MENTAL STATUS EXAM: CONSTITUTIONAL: Well groomed, Appropriately dressed ORIENTATION: Person, Place, Time and Situation MEMORY: Remote intact, Immediate intact CONCENTRATION: Normal MOOD: euthymic AFFECT: Full and appropriate to topic SPEECH : Clear & distinct LANGUAGE : Normal ASSOCIATIONS: Intact THOUGHT PROCESS : Logical, Coherent, and Rational PROGRESSION : There was no evidence of disturbance in thought perception or progression. FUND OF KNOWLEDGE : Appropriate and Adequate SUICIDE: None HOMICIDE: None DATA REVIEWED: Psychiatric scales, Electronic medical record, and collateral information from . DIAGNOSIS: PRIMARY: PTSD, Chronic - experiences night terrors Secondary : Generalized Anxiety Disorder Other : Alcohol use, marijuana use GAF: -60-51 Moderate symptoms or moderate difficulty in social, occupational or school functioning. TREATMENT PLAN: 1. Message for referral for Behavioral Medicine at [place] 2. Continue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 Vitamin D Deficiency Fatigue Chronic Pain of Right Knee Pain in Right Hip Primary Osteoarthritis of Right Knee Diarrhea Subclinical Hypothyroidism Christopher (Generalized Anxiety Disorder) Irritable Bowel Syndrome With Diarrhea Esophageal Dysphagia Urinary Frequency Anxiety With Depression Chronic Insomnia Irritable Bowel Syndrome With Constipation Nightmares Vivid Dream Allergies As of Date: 12/16/2022 (No Known Allergies) Fully Assessed 12/16/2022 CURRENT MEDICATIONS: dicyclomine (BENTYL) 10 mg capsule Take 1 capsule by mouth before meals and at bedtime. For bowels/irritable bowels rosuvastatin (CRESTOR) 10 mg tablet take one tablet by mouth every day at bedtime prazosin (MINIPRESS) 1 mg cap Take 1mg by mouth at bedtime x3 days, then increase to 2mg daily at bedtime. amitriptyline (ELAVIL) 10 mg tablet Take 2 tablets by mouth daily at bedtime. FLUoxetine (PROZAC) 20 mg capsule Take 1 capsule by mouth once daily. omeprazole (PRILOSEC) 20 mg capsule Take 1 capsule by mouth once daily. 30 min before breakfast finasteride (PROSCAR) 5 mg tablet Take 1 tablet by mouth once daily. Review of Systems Constitutional: Positive for fatigue. Negative for recent unintentional weight change. Cardiovascular: Positive for palpitations (with bad dreams). Gastrointestinal: Negative for heartburn. Genitourinary: Negative for nocturia. Neurological: Positive for dizziness and memory loss. Negative for headaches. SOCIAL HISTORY: Social History Tobacco Use Smoking status: Former Packs/day: 1.25 Years: 35.00 Additional pack years: 0.00 Total pack years: 43.75 Types: Cigarettes Quit date: 02/20/2005 Years since quittin.8 Smokeless tobacco: Never Vaping Use Vaping Use: Never used Substance Use Topics Alcohol use: Yes Alcohol/week: 2.5 - 5.0 standard drinks of alcohol Types: 1 - 2 Mixed Drinks per week Drug use: Yes Frequency: 7.0 times per week Types: Marijuana Comment: uses daily FAMILY HISTORY: FAMILY HISTORY Problem Relation Age of Onset Emphysema Mother 62 Colon Cancer Brother 58 Heart Paternal Grandmother Heart Paternal Grandfather other (black lung) Maternal Grandfather There is no family history of sleep disorders. PHYSICAL EXAMINATION: Vital Signs: BP 126/78 Pulse 97 Resp 16 Wt 92.2 kg (203 lb 3.2 oz) SpO2 96% BMI 28.35 kg/m PHYSICAL EXAM: General appearance: pleasant, no distress Mental status: alert and oriented Muscular ENT : Nasal congestion absent, Nasal valve incompetence absent. Posterior airspace: Greer tongue position 4, retrognathia absent. Overbite absent. High arched palate present. Heart: Regular Gait normal IMPRESSION/PLAN: G47.33 BOBBY (obstructive sleep apnea) (primary encounter diagnosis) G47.19 Excessive daytime sleepiness G47.52 Dream enactment behavior Kacey Bentley is a 62 year old male with PMH of hyperlipidemia, anxiety, depression, nightmare disorder who has moderate to severe BOBBY, EDS, RLS, dream enactment behavior. We discussed BOBBY in detail, his PSG results, treatment options. He was intolerant of PAP therapy. He would like to be evaluated for hypoglossal nerve stimulation (Inspire). He meets criteria; discussed that he will need DISE with ENT still. Refer to ENT Dr Hammonds for eval for hypoglossal nerve stimulation (Inspire) Would look for improvement in EDS and RLS and resolution of dream enactment once BOBBY is treated. But RBD persists then will need further discussion and treatment. Might need medication treatment for EDS once BOBBY controlled, or consider MSLT if still as severe. I'll discuss his RBD with Dr Reddy, regarding anything we should do in the meantime for this other than safety measures. Sushant Colmenares APRN.SFDC ARCHITECT I spent a total of 45 minutes on the date of the service which included preparing to see the patient, [id number] patient care, completing clinical documentation, obtaining and/or reviewing separately obtained history, performing a medically appropriate examination, counseling and educating the patient/family/caregiver, and ordering medications, tests, or procedures. documented in this encounter [facility] 12-15-2022 Miscellaneous Notes Behavioral Health Social Work Progress Note Patient identified for [facility] from: PCP Reason for referral: Resources Behavioral Health Resources: Psychiatry med management [facility] encounter type: Telephone Encounter Attempts to Outreach: 1 attempt Referral made: Psychiatry - Internal Psychiatry-Internal referral type: Medication Management Final Disposition: Care established with Patient Discharged?: No Patient reported that caregiver was able to meet their needs today?: N/A therapist spoke with patient's , scheduled [facility] assessment for MondayDecember 20 at 1:00pm GEORGINA Elena-Tho December 15, 2022 documented in this encounter [facility] 12-01-2022 Miscellaneous Notes Pt spouse informed, verbalized understanding. Reports pt has ongoing issues- scheduled with [facility] on 12/09. Please assist with scheduling appt with sleep surgery. Sherri Nixon MA Please let Jose Ramon know his sleep study does again show sleep apnea. I know he was interested in the implanted device as he could not tolerate a CPAP. I'm placing the order for consult for this, please assist him to schedule. Virginia Lyon APRN.TIMUR documented in this encounter [facility] 11-24-2022 Miscellaneous Notes Requested Prescriptions Pending Prescriptions Disp Refills rosuvastatin (CRESTOR) 10 mg tablet [Pharmacy Med Name: ROSUVASTATIN CALCIUM 10MG TABS] 90 tablet 3 Sig: take one tablet by mouth every day at bedtime KAL 10/06/2022 NOV not scheduled at this time Sherri Nixon documented in this encounter [facility] 11-01-2022 History of Present illness Narrative IMPRESSION 62-year-old male with nasal bone fracture with nasal deformity, septal deviation, chronic rhinitis, and impaired auditory discrimination. RECOMMENDATION/PLAN For his nasal bone fracture, patient's options include do-nothing versus surgery. He would require an osteotomy in order to repair his nasal deformity. I will only recommend septorhinoplasty if he developed nasal obstruction in the future. Patient wishes to hold off on surgery for now. For his chronic rhinitis, patient can use Flonase nasal spray. For his hearing loss, I recommend obtaining an audiogram. I will see him back after the hearing test. Chief Complaint Nasal bone fracture, nasal drainage, hearing loss. History of Present Illness Kacey Bentley is a 62 year old male presents for evaluation nasal bone fracture, nasal drainage, and hearing loss. Patient had a fall towards the end of August. Patient had a CT scan of his brain and the imaging was not available for review. According to report, patient had bilateral angulated nasal bone fracture. He noticed that his external nose is slightly deviated. He denies any significant breathing issues. He has a history of septoplasty for deviated septum. He also mentioned that he is experiencing nasal drainage at night and in the morning. He does not use any nasal sprays. Finally, he is also reporting progressive hearing loss in the left ear for many years. PAST MEDICAL HISTORY Diagnosis Date Arthritis Colon polyps 03/26/2010 Dr. 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 amitriptyline (ELAVIL) 10 mg tablet Take 2 tablets by mouth daily at bedtime. FLUoxetine (PROZAC) 20 mg capsule Take 1 capsule by mouth once daily. omeprazole (PRILOSEC) 20 mg capsule Take 1 capsule by mouth once daily. 30 min before breakfast finasteride (PROSCAR) 5 mg tablet Take 1 tablet by mouth once daily. rosuvastatin (CRESTOR) 10 mg tablet Take 1 tablet by mouth daily at bedtime. No current facility-administered medications on file prior to visit. ALLERGIES ALLERGIES No Known Allergies The remainder of the patient's history and review of systems is on the outpatient questionaire which was reviewed by me and placed in the outpatient chart. PHYSICAL EXAMINATION Appearance: General examination of the patient's external face, head and neck reveals no abnormalities. The patient is not retrognathic The patient's voice is strong and clear and they communicate easily. Ears: Exam of the ears revealed normal appearing external auditory canals, tympanic membranes, and middle ears. No signs of infection or fluid were seen. Nose: External nasal exam shows slight dorsal deviation to the left side. Throat: There were no lesions to visualization or palpation of the lips, cheeks, gums, floor of mouth, tongue, hard and soft palate, tonsillar pillars or posterior pharyngeal wall. The patient is a Greer Tongue Position 3 and has grade 1 tonsils. Neck: Palpation of the neck revealed no adenopathy, salivary gland masses or asymmetry, or thyroid masses or enlargement. Procedure In order to assess the patient's complaint of nasal drainage, nasal endoscopy was performed. Consent: verbal Anesthesia: topical lidocaine and Afrin Indication: In order to fully characterize their nasal obstruction/sinusitis, headache, nasal symptoms from both a mechanical and inflammatory perspective, nasal endoscopy was performed. The information gained from this procedure was critical in informing medical decision making, in part because the list of differential diagnosis for this patient is numerous and includes both mechanical and inflammatory causes Procedure detail: After spraying the nose with topical 4% lidocaine and Afrin the nasal endoscope was passed. Findings: Septum was caudally deviated to the right side. Bilateral middle meatus are clear without any pus or polyps. Nasopharynx was patent. Nando Sanchez MD documented in this encounter [facility] 10-06-2022 Miscellaneous Notes Please call patient and assist him to schedule with surgical sleep specialist for evaluation for Inspire device. Virginia Lyon APRN.CNP documented in this encounter [facility] 10-06-2022 Instructions Virginia Lyon APRN.CNP - 10/06/2022 11:57 AM EDT Schedule your sleep study. Start the Minipress-fine to take with amitriptyline. documented in this encounter [facility] 10-06-2022 History of Present illness Narrative Chief Complaint Patient presents with: Sleep Problem: Night terrors- not sleeping well Dizziness: Fell 2 weeks ago, broke nose Memory Loss HPI Kacey Bentley is a 62 year old male who presents here today for Above Complaints. Today: Night terrors-Has been going on for a very long time. Intensity is not increasing but frequency has. Screams at times. Can be violent in his sleep. Has seen a psychiatrist in the past that he did not benefit from. Has some nightmares where people are chasing him but can't see the people. Many are r/t his time in the [employer]. Sleep-can't sleep when supposed to be sleeping can't be awake when supposed to be awake. Chronic as well. Likely r/t nightmares and is constantly moving, uncomfortable. Sleep apnea-was tested years ago but didn't stick with the CPAP, just couldn't tolerate. Wondering if he would be a candidate for the implanted device. Past medical history, appointments, medications, allergies reviewed. Previous Medical History PAST MEDICAL HISTORY Diagnosis Date Arthritis Colon polyps 03/26/2010 Dr. Salty Rodrigues, by c scope Depression Hyperlipemia BOBBY (obstructive sleep apnea) CPAP Personal history of colonic polyps 03/10/2016 tubular adenoma Previous Surgical History PAST SURGICAL HISTORY Procedure Laterality Date CARPAL TUNNEL 2012 both wrists COLONOSCOPY 2010 COLONOSCOPY GEN ANES 07/09/2020 Repeat in 5 years EGD 07/10/2020 PAST SURGICAL HISTORY OF Bone tumor age 14 PAST SURGICAL HISTORY OF deviated septum repair PROCEDURE RM-COLONSCOPY W/BX 11/2017 Family History FAMILY HISTORY Problem Relation Age of Onset Emphysema Mother 62 Colon Cancer Brother 58 Heart Paternal Grandmother Heart Paternal Grandfather other (black lung) Maternal Grandfather Patient Allergies ALLERGIES No Known Allergies Current Medications Current Outpatient Medications on File Prior to Visit Medication Sig amitriptyline (ELAVIL) 10 mg tablet Take 2 tablets by mouth daily at bedtime. FLUoxetine (PROZAC) 20 mg capsule Take 1 capsule by mouth once daily. omeprazole (PRILOSEC) 20 mg capsule Take 1 capsule by mouth once daily. 30 min before breakfast finasteride (PROSCAR) 5 mg tablet Take 1 tablet by mouth once daily. rosuvastatin (CRESTOR) 10 mg tablet Take 1 tablet by mouth daily at bedtime. No current facility-administered medications on file prior to visit. Social History Social History Tobacco Use Smoking status: Former Packs/day: 1.25 Years: 35.00 Additional pack years: 0.00 Total pack years: 43.75 Types: Cigarettes Quit date: 02/20/2005 Years since quittin.6 Smokeless tobacco: Never Vaping Use Vaping Use: Never used Substance Use Topics Alcohol use: Yes Alcohol/week: 2.5 - 5.0 standard drinks of alcohol Types: 1 - 2 Mixed Drinks per week Drug use: Yes Frequency: 7.0 times per week Types: Marijuana Comment: uses daily Review of Symptoms REVIEW OF SYSTEMS See HPI, otherwise negative EXAM: BP 104/68 (BP Site: Left Arm, BP Position: Sitting, BP Cuff Size: Regular Adult) Pulse 87 Resp 16 Wt 89 kg (196 lb 3.2 oz) SpO2 98% BMI 27.36 kg/m General Appearance: Well appearing, alert, in no acute distress, well-hydrated, well nourished.. Back:no pain to palpation of vertebrae, good flexion and extension, good range of motion, no muscle tenderness, motor and sensory appear to be normal Lungs: Lungs clear to auscultation. No wheezing, rhonchi, rales.. Psychiatric: pleasant, cooperative. Health Maintenance List COVID-19 VACCINE(3 - Moderna series) due on 08/06/2020 SHINGRIX VACCINE(2 of 2) due on 01/20/2021 INFLUENZA(1) due on 10/21/2022 ANNUAL PCP TEAM CHRONIC DISEASE VISIT due on 09/08/2023 COLORECTAL CANCER SCREENING due on 07/09/2025 DIABETES SCREEN due on 09/12/2025 PROSTATE CANCER SCREENING DISCUSSION due on 10/20/2026 LIPID SCREEN due on 10/23/2026 DTAP,TDAP,TD(2 - Td or Tdap) due on 07/30/2029 HEPATITIS C SCREENING Completed HIV SCREENING Completed Data reviewed Previous records, office notes ASSESSMENT/PLAN: 1. Nightmares - ICD9: 307.47, ICD10: F51.5 (primary diagnosis) - PAP TITRATION PSG (CPAP, BIPAP, ASV) - PRAZOSIN 1 MG CAPSULE - CONSULT TO SLEEP SURGERY-ADULT 2. Fatigue, unspecified type - ICD9: 780.79, ICD10: R53.83 - PAP TITRATION PSG (CPAP, BIPAP, ASV) - CONSULT TO SLEEP SURGERY-ADULT 3. Chronic insomnia - ICD9: 780.52, ICD10: F51.04 - PAP TITRATION PSG (CPAP, BIPAP, ASV) - PRAZOSIN 1 MG CAPSULE - CONSULT TO SLEEP SURGERY-ADULT 4. Restless sleeper - ICD9: 780.50, ICD10: G47.9 - PAP TITRATION PSG (CPAP, BIPAP, ASV) - PRAZOSIN 1 MG CAPSULE - CONSULT TO SLEEP SURGERY-ADULT 5. BOBBY (obstructive sleep apnea) - ICD9: 327.23, ICD10: G47.33 - PAP TITRATION PSG (CPAP, BIPAP, ASV) - CONSULT TO SLEEP SURGERY-ADULT Virginia Lyon APRN.SFDC ARCHITECT documented in this encounter [facility] 09-17-2022 Discharge summary Note Date/Time September 17, 2022 2:01am [facility] Medical Records Department [address] [place] [address] Emergency Department Summary 09/17/22 MR#: [id number] Acct: [id number] Name: KACEY BENTLEY Rep #:[id number] : 1960 62 From: Brett Marcus MD PCP: Dr. Jules Haynes, DO Status:RE G ER Location: ED HPI History of Present Illness Chief Complaint: Dizziness Informant: patient and spouse/S.O. Narrative Narrative: Patient drank a lot of straight whiskey tonight along with some different marijuana than usual, he got up around 1 AM to use the restroom, he seemed disoriented, he fell several times on the way to the bathroom and on the way back, injuring his nose in his back. Patient states he does not remember any ofthis, his brought him, he now is back to baseline mental status. States his nose hurts, he denies any vision changes, denies any shortness of breath. Pain is in his upper back more to the right. [facility] Medical History BPH (benign prostatic hyperplasia) CPAP (continuous positive airway pressure) dependence Factor 5 Leiden mutation, heterozygous GERD (gastroesophageal reflux disease) Sleep apnea Home Medications amitriptyline 10 mg tablet 10 mg PO DAILY 09/17/22 [History Last Taken Unknown] cyclobenzaprine 10 mg tablet 10 mg PO TID PRN Muscle Spasm #15 TABLETS 09/17/22 [Rx Last Taken Unknown] finasteride 5 mg tablet 5 mg PO DAILY 09/17/22 [History Last Taken Unknown] fluoxetine 10 mg capsule 10 mg PO DAILY 09/17/22 [History Last Taken Unknown] omeprazole 20 mg capsule,delayed release 20 mg PO DAILY 09/17/22 [History Last Taken Unknown] rosuvastatin 10 mg tablet 10 mg PO DAILY 09/17/22 [History Last Taken Unknown] tramadol 50 mg tablet 50 mg PO Q6H PRN pain 2 days #6 tabs 09/17/22 [Rx Last Taken Unknown] Allergy/AdvReac Type Severity Reaction Status Date / Time No Known Allergies Allergy Verified 09/17/22 01:25 Family History Father Heart disease Hypertension Mother COPD (chronic obstructive pulmonary disease) Surgical History H/O excision of mass Social History household members: spouse Smoking Status: Former smoker alcohol intake: current details: drinks 5-6 shots of whisky a day substance use type: marijuana ROS ROS ED Constitutional Constitutional ED: Denies chills or fever(s) Eyes Eyes: Denies change in vision or diplopia ENT ENT ED: Reports nasal trauma and other Details: Nasal pain ; Denies rhinorrhea or sore throat Cardiovascular Cardiovascular: Denies chest pain or palpitations Respiratory/Chest Respiratory/Chest: Denies cough or dyspnea Gastrointestinal Gastrointestinal: Denies abdominal pain, diarrhea, nausea or vomiting Genitourinary Genitourinary ED: Denies dysuria or hematuria Musculoskeletal Musculoskeletal: Reports back pain; Denies neck pain Integumentary Reports Abrasions; Denies abscess or rash Neurologic Neurologic: Reports headache(s) and other Details: Transient confusion/amnesia ; Denies paresthesias or weakness Psychiatric Psychiatric: Denies anxiety or suicidal thoughts EXAM Physical Exam Const Vital Signs: 09/17/22 01:28 09/17/22 01:31 Temperature 97.8 F Temperature Source Temporal Pulse Rate 70 Respiratory Rate 18 Respiratory Effort Normal Respiratory Pattern Normal Blood Pressure 96/56 L Blood Pressure Mean 69 Pulse Ox 98 Oxygen Delivery Method Room Air Positive well nourished and well developed General Appearance ED: well developed and NAD HEENT Reports TM's clear and moist mucous membranes HEENT Narrative: Trauma/minor tenderness to the nose but nowhere else on the face. Midface stable. No dental injury or loosening/subluxation. No trismus. No malocclusion. There are 2 skin injuries to the nose, one 0.5 cm full-thickness laceration and 1 Y-shaped linear superficial laceration off to the right. No significant swelling or asymmetry. normocephalic Face and Sinus: Negative for facial tenderness Tympanic Membrane ED: Yes TM's clear Eyes PERRL and EOMs intact bilaterally Visual Acuity: other Other Details: no entrapment or pain with extraocular movements Neck full ROM and supple General: Negative for tenderness Chest Wall inspection of chest normal and palpation of chest normal Chest: symmetrical chest wall rise; Negative for crepitus or tenderness Resp normal respiratory effort and clear to auscultation bilaterally Percussion: other equal BS bilat Cardio regular rate, regular rhythm and no murmurs Rate: regular rate Rhythm: regular rhythm GI non-tender and non-distended Auscultation: normoactive bowel sounds Palpation: soft Back/Spine no CVA tenderness Back/Spine Narrative: Tender right rhomboids. Stretching to patient's right arm across his body stretches the area and feels good. No pain or tenderness in the midline/spine including with movement. General Back: other FROM Cervical Spine: Negative for cervical spine tenderness Thoracic Spine / Upper Back: Negative for thoracic spinal tenderness Lumbar Spine / Lower Back: Negative for lumbar spinal tenderness Extremity normal to inspection General Extremety ED: Negative for edema, pulses abnormal or tenderness General Extremity: Negative for edema or pulses abnormal Neuro oriented x3, CN's II-XII intact bilaterally and no sensory deficits noted Neuro Narrative: Seems mildly intoxicated. Jimmy Coma Scale: document GCS findings Spontaneous Obeys Commands Oriented 15 Sensorium / Orientation: awake and alert Motor Exam: strength 5/5 throughout Psych mental status grossly normal and thought process normal Skin no rashes or lesions noted Skin Narrative: Wounds to the nasal bridge only see above Lesions: no lesions Rashes: no rashes MDM MDM MDM Narrative Medical decision making narrative: Labs and a CT head were obtained, I reviewed the images and the report which I agree with, negative for any acute intracranial injury, but nasal fractures present. Patient is doing well now, I suspect this was all related to alcohol and/or drugs; unclear what his THC could have had with it. I do not think he ishaving a TIA/stroke. His vital signs are normal, his blood pressure is actuallya little on the low side but not to the point where we need to intervene emergently, 96/56. Alcohol is 127 and this is long after he stopped drinking. It was probably much higher earlier. Reassured, discharged in stable condition. Dermabonded his nose. Lab Data Attestation: I reviewed the patient's lab results. Labs: Laboratory Results - last 24 hr 09/17/22 02:30 WBC 6.6 RBC 4.49 L Hgb 14.3 Hct 42.4 MCV 94.4 H MCH 31.8 MCHC 33.7 RDW Std Deviation 40.8 RDW Coeff of [place] 11.8 Plt Count 166 MPV 10.1 Immature Gran % (Auto) 0.300 Neut % (Auto) 54.5 Lymph % (Auto) 33.7 [place] % (Auto) 8.0 Eos % (Auto) 3.0 Baso % (Auto) 0.5 Absolute Neuts (auto) 3.6 Absolute Lymphs (auto) 2.24 Nucleated RBC % 0 Sodium 141 Potassium 4.0 Chloride 107 Carbon Dioxide 28.0 Anion Gap 6 BUN 15 Creatinine 1.16 Estim Creat Clear Calc 68.52 Est GFR (MDRD) Af Amer 81 Est GFR (MDRD) Non-Af 67 BUN/Creatinine Ratio 12.9 Glucose 97 Calcium 8.9 Ethyl Alcohol 127.0 Radiography Diagnostic Testing: Clinical Impression(s) from Imaging Studies Brain CT 09/17/22 01:55 IMPRESSION: Nasal fractures. Age-related changes as above, without evidence of acute intracranial hemorrhage in this noncontrast head CT. Electronically Signed: Anish Hargrove MD at 3:32 EDT , Procedures Lacerations nose: Length: 0.5 cm Depth: Sub Q Shape: Linear Laceration repair: Dermabond nose #2: Length: 1 cm Depth: Skin Shape: Stellate Prep: Sterile Conditions and Chlorhexadine Laceration repair: Dermabond Discharge Plan Triage Chief Complaint: Dizziness ED Provider: Brett Marcus Dx/Rx/DC Orders Clinical Impression: Alcohol intoxication, Vestibular disequilibrium, Laceration of nose, Closed fracture nasal bone, Back contusion Instructions: ED Nose Fracture, with X-Ray, ED Laceration, Face: Skin Glue, ED Vertigo, Unspecified Prescriptions: New cyclobenzaprine [cyclobenzaprine] 10 mg tablet 10 mg PO TID PRN (Reason: Muscle Spasm) Qty: 15 0RF tramadol 50 mg tablet 50 mg PO Q6H PRN (Reason: pain) 2 Days Qty: 6 0RF No Action fluoxetine 10 mg capsule 10 mg PO DAILY finasteride 5 mg tablet 5 mg PO DAILY amitriptyline 10 mg tablet 10 mg PO DAILY omeprazole 20 mg capsule,delayed release(DR/EC) 20 mg PO DAILY rosuvastatin 10 mg tablet 10 mg PO DAILY Primary Care Provider: Jules Haynes Referrals: Jules Haynes DO [Primary Care Provider] - As Needed Disposition Disposition: Home, Self Care What to do if you have Problems For any increased pain, shortness of breath, bleeding, nausea or vomiting, chestpain, or any unexpected problems, contact your Primary Care Provider. Call [facility] ([phone]) or report to the closest Emergency Room. Call 911 if necessary. 09/17/22 034 <Electronically signed by Brett Marcus MD> Cosigner Signature (if applicable): CC: Dr. Jules Haynes DO ~ Signed [facility] Work Phone: [phone] 713-911907-19-2023 Instructions* Patient Instructions* Jessica French APRN.CNP - 09/07/2022 1:49 PM EDT Get labs completed today Increase water intake 8-10 glasses per day Follow up pending test results or sooner as needed. documented in [facility] encounterC[facility] History of Present illness Narrative* Jessica French APRN.CNP - 09/07/2022 1:20 PM EDT This is a 62 year old male who presents today with: Patient presents with: Follow Up: ER follow up HISTORY OF PRESENT ILLNESS: Kacey Bentley is a 62 year old male. Patient presents with: Follow Up: ER follow up HOSPITAL/ER FOLLOW UP: Reason for visit: Abdominal pain Which facility: [facility] Er Date of visit: 09/05/2022 Diagnosis: Abdominal pain unknown cause. Testing done: CBC was normal, CMP showed slightly low potassium at 3.3. Given oral replacement. Renal function normal. Urinalysis was normal. CT scan of the flank revealed some chronic changes but noacute changes to explain his abdominal pain. Treatment given: None Current symptoms: Symptoms improved while at the hospital. Refers that he has had issues in the past with multiple BM's daily. Had consult with GI. Has had colonoscopy and EGD. Refers he is a good water drinker and works outside. Pain will feel like a cramp at times. Has had increase in sweating, happening during the day and at night. PAST MEDICAL HISTORY: PAST MEDICAL HISTORY Diagnosis Date Arthritis Colon polyps 03/26/2010 Dr. 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 MEDICATIONS Current Outpatient Medications Medication Sig omeprazole (PRILOSEC) 20 mg capsule Take 1 capsule by mouth once daily. 30 min before breakfast amitriptyline (ELAVIL) 10 mg tablet Take 2 tablets by mouth daily at bedtime. FLUoxetine (PROZAC) 20 mg capsule Take 1 capsule by mouth once daily. finasteride (PROSCAR) 5 mg tablet Take 1 tablet by mouth once daily. rosuvastatin (CRESTOR) 10 mg tablet Take 1 tablet by mouth daily at bedtime. No current facility-administered medications for this visit. FAMILY HISTORY Problem Relation Age of Onset Emphysema Mother 62 Colon Cancer Brother 58 Heart Paternal Grandmother Heart Paternal Grandfather other (black lung) Maternal Grandfather Social History Tobacco Use Smoking status: Former Packs/day: 1.25 Years: 35.00 Total pack years: 43.75 Types: Cigarettes Quit date: 02/20/2005 Years since quittin.5 Smokeless tobacco: Never Vaping Use Vaping Use: Never used Substance Use Topics Alcohol use: Yes Alcohol/week: 2.5 - 5.0 standard drinks of alcohol Types: 1 - 2 Mixed Drinks per week Drug use: Yes Frequency: 7.0 times per week Types: Marijuana Comment: uses daily REVIEW OF SYSTEMS GENERAL: + Sweating HEENT: Negative for frequent or significant headaches, No changes in hearing or vision. NECK: Negative for lumps, goiter, pain and significant neck swelling RESPIRATORY: Negative for cough, hemoptysis, wheezing, dyspnea or shortness of breath CARDIOVASCULAR: Negative for chest pain, leg swelling, orthopnea, or palpitations GI: + Abdominal Cramping : No history of dysuria, frequency or incontinence MUSCULOSKELETAL: Negative for joint pain or swelling. SKIN: Negative for lesions, rash, and itching ENDOCRINE: Negative for cold or heat intolerance, polyuria, polydipsia and goiter NEURO: No history of headaches, syncope, paralysis, seizures or tremors MOOD: Negative for depression, anxiety, or suicidal ideation. EXAM: BP 120/70 Pulse 70 Resp 16 Wt 87.1 kg (192 lb) SpO2 98% BMI 26.78 kg/m PHYSICAL EXAM: General Appearance: Well appearing, alert, in no acute distress, well-hydrated, well nourished. Skin: Skin color, texture, turgor normal, no suspicious rashes or lesions. Head: Normocephalic, no masses, lesions, tenderness or abnormalities. Eyes: Anicteric sclera. Extraocular movements are intact. Neck: Supple, no adenopathy; thyroid symmetric, normal size, no bruits. Lungs: Lungs clear to auscultation. No wheezing, rhonchi, rales. Heart: RRR without murmur, gallop, or rubs. No ectopy. Abdomen: Normal abdominal exam, Abdomen soft, non-tender. Bowel sounds normal. No masses, organomegaly. Extremities: No deformities, edema, skin discoloration, clubbing or cyanosis. Good capillary refill. Peripheral Pulses: Normal, Capillary refill <2secs, strong peripheral pulses, Pulses palpable. Neurologic: Gait normal. Sensation grossly intact. ASSESSMENT/PLAN: 1. Hospital discharge follow-up - ICD9: V67.59, ICD10: Z09 (primary diagnosis) - Symptoms have improved since discharge. 2. Abdominal cramping - ICD9: 789.00, ICD10: R10.9 - Recommend increasing water intake during the day. - May consider electrolyte replacement when working outside. 3. Night sweats - ICD9: 780.8, ICD10: R61 - Get labs completed. - TSH BLD - T4 FREE/FREE THYROX - T3 BLD - CBC + DIFF - IRON + TIBC - VITAMIN B12 BLOOD - VITAMIN D 25 HYDROXY - COMP METABOLIC PANEL 4. GERD without esophagitis - ICD9: 530.81, ICD10: K21.9 - Stable, refill provided. - OMEPRAZOLE 20 MG CAPSULE,DELAYED RELEASE 5. Anxiety with depression - ICD9: 300.4, ICD10: F41.8 - Stable, refill provided. - AMITRIPTYLINE 10 MG TABLET - FLUOXETINE 20 MG CAPSULE Follow up pending test results or sooner as needed. Discussed treatment plan and patient voices understanding. Patient's questions answered appropriately. Medications and potential side effects were discussed and patient voices understanding. Jessica French APRN.SFDC ARCHITECT This note was partially generated using [employer] voice recognition system. Note was reviewed for accuracy. There may be minor misspellings or grammar miscues with [employer] voice recognition. documented in this encounterC[facility]04-28-2023 Instructions* Patient Instructions* Adam Galvez MD - 06/17/2022 4:43 PM EDT I would recommend you get scheduled for an EGD with Dr. Han or Dr. Doherty with anesthesia to ensure that you are fully out for the procedure. You can call Christina Shiv at [phone] to schedule - we need t make srue this is done with anesthesia 2. Start omeprazole 20mg daily - take 30 min before breakfast 3. Increase amitriptyline to 20mg at night - we can increase the dose every 2 weeks - this can helpwith your bowel movement 4. Return to clinic in 4 months - you can call [phone] to schedule documented in this encounterC[facility]04-28-2023 History of Present illness Narrative* Adam Galvez MD - 06/17/2022 4:30 PM EDT VIRTUAL VISIT FOLLOW UP I have communicated my name and active licensure. The patient's identity and physical location wereverified at the time of this visit. 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 I had a virtual visit with Mr. Bentley today for follow up of dysphagia. UPDATED HISTORY: --EGD with savary dilation in December - did not tolerate the dilator well --Feels that dilation helped decrease frequency of dysphagia. Still has intermittent dysphagia to meats like chicken --Has been on amitriptyline, no change in bowel movements Answers submitted by the patient for this visit: Review of Systems Gastroenterology (Submitted on 06/17/2022) Fever: No Chills: No Night Sweats: No Unitentional Weight Change: No A Cough: No Difficulty Breathing: No Chest Pain: No Belly pain: Yes A feeling of fullness or have belly pain after eating: Yes Food getting stuck in your throat or chest after eating: Yes Nausea - that is, a feeling like you could vomit: No Regurgitation - that is, food or liquid coming back up into your throat or mouth without vomiting, or feel burning behind your breast bone: No Loss of appetite: No To throw up or vomit: No Blood in your stools: No Black tarry stools: No Loose or watery stools: No The feeling like you need to empty your bowels right away - that is, feel as if you would have an accident: Yes Bowel incontinence - that is, have an accident because you cannot make it to the bathroom in time: No Problems with straining while having bowel movements , hard or lumpy stools, or feel unfinished (that you have not passed all your stool): Yes Pain in rectum or anus during bowel movements: No Problems with jaundice - that is, yellow discoloration of your skin or eyes, now or in the past: No Problems with having to flush the toilet more than two times due to oily stool, or see stool floating with oil: No PAST MEDICAL HISTORY Diagnosis Date Arthritis Colon polyps 03/26/2010 Dr. 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 14 PAST SURGICAL HISTORY OF deviated septum repair PROCEDURE RM-COLONSCOPY W/BX 11/2017 FAMILY HISTORY Problem Relation Age of Onset Emphysema Mother 62 Colon Cancer Brother 58 Heart Paternal Grandmother Heart Paternal Grandfather other (black lung) Maternal Grandfather Social History Tobacco Use Smoking status: Former Packs/day: 1.25 Years: 35.00 Pack years: 43.75 Types: Cigarettes Quit date: 02/20/2005 Years since quittin.3 Smokeless tobacco: Never Vaping Use Vaping Use: Never used Substance Use Topics Alcohol use: Yes Alcohol/week: 2.5 - 5.0 standard drinks Types: 1 - 2 Mixed Drinks per week Drug use: Yes Frequency: 7.0 times per week Types: Marijuana Comment: uses daily Current Outpatient Medications Medication Sig Dispense Refill FLUoxetine (PROZAC) 20 mg capsule Take 1 capsule by mouth once daily. 90 capsule 1 finasteride (PROSCAR) 5 mg tablet Take 1 tablet by mouth once daily. 90 tablet 3 amitriptyline (ELAVIL) 10 mg tablet Take 1 tablet by mouth daily at bedtime. 90 tablet 3 rosuvastatin (CRESTOR) 10 mg tablet Take 1 tablet by mouth daily at bedtime. 90 tablet 3 No current facility-administered medications for this visit. ALLERGIES No Known Allergies REVIEW OF SYSTEMS: PAIN ASSESSMENT: Negative for pain, history of chronic pain, or current treatment for a chronic pain condition. GENERAL: No weight loss, malaise or fevers RESPIRATORY: Negative for cough, hemoptysis, wheezing, COPD, dyspnea or shortness of breath CARDIOVASCULAR: Negative for chest pain, leg swelling, hypertension, CHF or palpitations GI: see above PHYSICAL FINDINGS OF NOTE: General - Normal, healthy, cooperative, in no acute distress Able to interact verbally by video conference Psych - ORIENTATION: normal to time place, person and situation Mood/Affect: AFFECT AND MOOD: Normal Head/Neuro - Normal size and shape Facial appearance normal Pulmonary - respiratory effort normal Cardiovascular - patient describes extremities normal, warm, no cyanosis,no clubbing, and no edema Abdominal - Not performed Skin - abnormal lesions not visualized Motor - patient seen sitting with Normal appearing strength and coordination Anorectal exam - Not Performed REVIEWED ITEMS EGD 12/2021: A moderate Schatzki ring was found at the gastroesophageal junction. A guidewire was placed and the scope was withdrawn. Dilation was performed with a Savary dilator with mild resistance at 20 mm - patient became agitated when dilator was advanced, able to get dilator advanced ~2/3. Estimated blood loss was minimal. The Z-line was regular. The exam of the esophagus was otherwise normal. The entire examined stomach was normal. The examined duodenum was normal. IMPRESSION Pleasant 62M with dysphagia to solids, found to have moderate Schatzki ring. DIlated with 20mm Savary, but patient became agitated during that dilation, so unclear how much the ring was dilated. He has partial improvement after dilation, but still has episodes of solids becoming impacted RECOMMENDATION: --Repeat EGD for further dilation of Schatzki ring, requires MAC --He will start omeprazole 20mg daily - PPIs have been shown to reduce need for repeat dilations inpatients with Schatzki rings (Raulito et al, AJG, 2005) --Increase amitritpyline to 20mg QHS for his IBS-D, further increases as needed --RTC in 4 months Adam Galvez MD documented in this encounterC[facility]12-12-2022 Miscellaneous Notes* Telephone Encounter - Rand Villegas Ma - 01/31/2022 10:55 AM EST Last office visit: 01/05/22 F/u scheduled: none Rand Villegas Ma documented in this encounterC[facility]11-16-2022 History of Present illness Narrative* Virginia Lyon APRN.SFDC ARCHITECT - 01/05/2022 9:02 AM EST VIRTUAL VISIT PROGRESS NOTE This is a virtual visit using [employer] video visit. It required patient-provider interaction for themedical decision making as documented below. Kacey Bentley is a 61 year old male seen for 6 week follow up. Per appointment with Rosalina Perez CNP on 11/26/2021: CHRISTOPHER-- Was on Prozac 40 mg daily. [place] he didn't need it anymore after getting remarried and feeling happyand mood stabilized. Slowly weaned himself off of this medication. Last time he took a dose was about 5-6 months ago. Pt reports today that he realized the medication was doing its job and ever sincecoming off of it -- anxiety and mood changes have returned slowly and now he is at the point that he would like to restart this medication. Denies any side effects while on Prozac -- tolerated well. Reports episodes of overwhelming anxiety that gives him chest discomfort. Was given ativan 0.5 mg prn in the past but only took 1-2 tablets ever. Feels he may need this again until Prozac gets to thera peutic level. Reports stressors with job that he is not sure he can handle if symptoms worsen whilerestarting SSRI therapy. 3. Anxiety with depression - ICD9: 300.4, ICD10: F41.8 Restart SSRI therapy with Prozac 10 mg daily. Follow-up in 6 weeks VV to reassess -- possible need to increase dosage based on prior regimen. Ativan prn as needed for situation anxiety, especially while SSRI reaches therapeutic goal of resolution of symptoms. - FLUOXETINE 10 MG CAPSULE - LORAZEPAM 0.5 MG TABLET 4. Situational anxiety - ICD9: 300.09, ICD10: F41.8 See above. Today: Since restarting the Prozac 10mg about 6 weeks ago. Majority of anxiety and chest pain sx have resolved. No adverse effects. Feels this is a good dose for him. HISTORY REVIEWED (electronic chart updated): PAST MEDICAL HISTORY Diagnosis Date Arthritis Colon polyps 03/26/2010 Dr. 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 14 PAST SURGICAL HISTORY OF deviated septum repair PROCEDURE RM-COLONSCOPY W/BX 11/2017 FAMILY HISTORY Problem Relation Age of Onset Emphysema Mother 62 Colon Cancer Brother 58 Heart Paternal Grandmother Heart Paternal Grandfather other (black lung) Maternal Grandfather Social History Tobacco Use Smoking status: Former Packs/day: 1.25 Years: 35.00 Pack years: 43.75 Types: Cigarettes Quit date: 02/20/2005 Years since quittin.8 Smokeless tobacco: Never Vaping Use Vaping Use: Never used Substance Use Topics Alcohol use: Yes Alcohol/week: 2.5 - 5.0 standard drinks Types: 1 - 2 Mixed Drinks per week Drug use: Yes Frequency: 7.0 times per week Types: Marijuana Comment: uses daily Current Outpatient Medications Medication Sig finasteride (PROSCAR) 5 mg tablet Take 1 tablet by mouth once daily. FLUoxetine (PROZAC) 10 mg capsule Take 1 capsule by mouth once daily. amitriptyline (ELAVIL) 10 mg tablet Take 1 tablet by mouth daily at bedtime. rosuvastatin (CRESTOR) 10 mg tablet Take 1 tablet by mouth daily at bedtime. No current facility-administered medications for this visit. ALLERGIES No Known Allergies REVIEW OF SYSTEMS: All other ROS: negative As noted in HPI PHYSICAL EXAMINATION: VIDEO EXAM: (if completed, performed via video enabled technology) No exam performed ASSESSMENT: (F41.8) Anxiety with depression (primary encounter diagnosis) (F51.5) Nightmares PLAN: Continue same dose of Prozac 10mg, he will notify the office if he would like to increase this to 20mg. No need for appointment at that time to increase, but will need a follow up appointment following any increase. Chronic insomnia r/t nightmares. Will contact patient via [employer] to discuss any possible treatment. Virginia Lyon APRN.CNP documented in this encounterC[facility]11-08-2022 Nurse Note* Kash Gold LPN - 12/28/2021 10:26 AM EST AMBULATORY PATIENT EDUCATION NOTE TOPIC: GI PROCEDURES: Esophagogastroduodenoscopy(EGD) for control of bleeding,dilation(any means),imaging,tube placement READINESS TO LEARN INSTRUCTION PROVIDED TO: Patient and family member COGNITIVE ABILITY: Alert and oriented PTED MOTIVATION TO LEARN: Interested FAMILY SUPPORT: High - Very involved in pt care IPATIENT LEARNS BEST BY: Individual Instruction Written Instruction - Hand-outs Verbal Instruction FACTORS AFFECTING LEARNING: None PHYSICAL LIMITATIONS AFFECTING LEARNING: None LEARNING RESPONSE METHOD OF INSTRUCTION: Individual instruction PATIENT / FAMILY RESPONSE: Verbalizes understanding of: WORSENING CONDITION- Signs and symptoms of aworsening condition that warrant a call to the physician FOLLOW-UP PLAN: Recommend - Recommend continued instruction and follow up as directed SUPPLEMENTAL MATERIAL: Procedure Discharge Instructions REFERRAL (RECOMMENDATION): None * Kristen Flores RN - 12/28/2021 9:29 AM EST PRE OP LEARNING ASSESSMENT PROCEDURE/SURGERY: GI PROCEDURES: EGD READINESS TO LEARN COGNITIVE ABILITY: Alert and oriented MOTIVATION TO LEARN: Interested FAMILY SUPPORT: None - Unavailable/disinterested PATIENT LEARNS BEST BY: Individual Instruction FACTORS AFFECTING LEARNING: None PHYSICAL LIMITATIONS AFFECTING LEARNING: None Electronically Signed By: Kristen Flores RN In Department: GASTROENTEROLOGY documented in this encounterCleveland Clinic Mercy [facility] History and physical note * Adam Galevz MD - 12/28/2021 10:00 AM EST HISTORY AND PHYSICAL Kacey Bentley, 61 year old male Current history and physical on file: Yes Is a new History and Physical required for today's visit? Yes Indication for procedure: Dysphagia PROCEDURE(S) SCHEDULED FOR: Dilation (any means), treatment of bleeding (any means) based on clinical findings and EGD (Esophagogastroduodenoscopy) with or without biopsies, removal of polyps or lesions, dilation ( any means), treatment of bleeding ( any means), Barrx treatment of Junior's Esophagus, image tube placement or cryo therapy treatment based on clinical findings. BASELINE BEHAVIOR: Calm BASELINE ORIENTATION: A & O x3 All medications and allergies reviewed: Yes Skin Assessment: Warm dry mucus membranes pink Airway/Respiratory Assessment: Airway: visualization of the uvula- Yes Mouth: opening greater than 2 fingerbreadths- Yes Neck: full range of motion- Yes Breath sounds clear/equal- Yes Cardiac Assessment: Regular rate and rhythm without murmur Abdominal Assessment: Abdomen soft, non-tender, no masses or organomegaly. Sedation Plan: Moderate Additional Comments: None Adam Galvez MD documented in this encounterC[facility]22 Miscellaneous Notes* Telephone Encounter - Damaris Norton RN - 12/21/2021 4:16 PM EDT Attempted to reach the patient at the contact number that they provided [phone] (home) [phone] (work) . Unable to speak with patient so without identifying the patient the following information was left on their voice mail: Date of procedure, location and report time Instructions to contact their primary care provider regarding their medications and which medications to stop in preparation for their procedure Number to call with questions or concerns [phone] Number to call to cancel their procedure [phone] Damaris Norton RN documented in this encounterC[facility]10-[facility] History of Present illness Narrative* Rosalina Perez APRN.SFDC ARCHITECT - 11/26/2021 12:27 PM EDT Chief Complaint Patient presents with: follow up urgent care: Dx with ringworm, states was unable to get marcs here in town does not have it HPI Kacey Bentley is a 61 year old male who presents here today for Above Complaints. Kacey is an established patient of Dr. Haynes, DO and myself. Concerns today.. UC follow-up --- Seen in [facility] on 11/24/21 due to rash on chest. Per note: 1. Tinea corporis - ICD9: 110.5, ICD10: B35.4 - Treat with clotrimazole twice a day until rash resolves and then another week - Keep area of concern very dry. Ok to use OTC antifungal powder if area is moist - Follow up with PCP if symptoms persist or do not improved after 4-6 weeks of treatment. Today... Stable. Unable to picker tender helper clotrimazole ointment due to not available at [facility]. Not available OTC orprescription. Pt asking to resend to another pharmacy. Rash/ring worm remains the same. No worse but no better. Still no itchiness. No cats but does have dog that could have gave it to him. CHRISTOPHER-- Was on Prozac 40 mg daily. [place] he didn't need it anymore after getting remarried and feeling happyand mood stabilized. Slowly weaned himself off of this medication. Last time he took a dose was about 5-6 months ago. Pt reports today that he realized the medication was doing its job and ever sincecoming off of it -- anxiety and mood changes have returned slowly and now he is at the point that he would like to restart this medication. Denies any side effects while on Prozac -- tolerated well. Reports episodes of overwhelming anxiety that gives him chest discomfort. Was given ativan 0.5 mg prn in the past but only took 1-2 tablets ever. Feels he may need this again until Prozac gets to thera peutic level. Reports stressors with job that he is not sure he can handle if symptoms worsen whilerestarting SSRI therapy. No other concerns or complaints. Past medical history, appointments, medications, allergies reviewed. Previous Medical History PAST MEDICAL HISTORY Diagnosis Date Arthritis Colon polyps 03/26/2010 Dr. Salty Rodrigues, by c scope Depression Hyperlipemia BOBBY (obstructive sleep apnea) CPAP Personal history of colonic polyps 03/10/2016 tubular adenoma Previous Surgical History PAST SURGICAL HISTORY Procedure Laterality Date CARPAL TUNNEL 2012 both wrists COLONOSCOPY 2010 COLONOSCOPY GEN ANES 07/09/2020 Repeat in 5 years EGD 07/10/2020 PAST SURGICAL HISTORY OF Bone tumor age 14 PAST SURGICAL HISTORY OF deviated septum repair PROCEDURE RM-COLONSCOPY W/BX 11/2017 Family History FAMILY HISTORY Problem Relation Age of Onset Emphysema Mother 62 Colon Cancer Brother 58 Heart Paternal Grandmother Heart Paternal Grandfather other (black lung) Maternal Grandfather Patient Allergies ALLERGIES No Known Allergies Current Medications Current Outpatient Medications on File Prior to Visit Medication Sig clotrimazole 1 % oint Apply to affected area twice daily for 14 days. amitriptyline (ELAVIL) 10 mg tablet Take 1 tablet by mouth daily at bedtime. rosuvastatin (CRESTOR) 10 mg tablet Take 1 tablet by mouth daily at bedtime. finasteride (PROSCAR) 5 mg tablet Take 1 tablet by mouth once daily. No current facility-administered medications on file prior to visit. Social History Social History Tobacco Use Smoking status: Former Packs/day: 1.25 Years: 35.00 Pack years: 43.75 Types: Cigarettes Quit date: 02/20/2005 Years since quittin.7 Smokeless tobacco: Never Substance Use Topics Alcohol use: Yes Alcohol/week: 2.5 - 5.0 standard drinks Types: 1 - 2 Mixed Drinks per week Drug use: Yes Frequency: 7.0 times per week Types: Marijuana Comment: uses daily REVIEW OF SYSTEMS: as above Reviewed relevant PMHx, PSHx, Social Hx, current medications and allergies. Review of Symptoms REVIEW OF SYSTEMS See HPI. EXAM: BP 110/62 (BP Site: Left Arm, BP Position: Sitting, BP Cuff Size: Large Adult) Pulse 60 Resp 14 Wt 94.2 kg (207 lb 9.6 oz) BMI 28.35 kg/m General Appearance: Well appearing, alert, in no acute distress, well-hydrated, well nourished.. Skin: Skin color, texture, turgor normal, no suspicious rashes or lesions. 3 circular linear areas of a rash to center chest, over sternum area. Central clearing in round center of each rash. Head: Normocephalic, no masses, lesions, tenderness or abnormalities. Lungs: Lungs clear to auscultation. No wheezing, rhonchi, rales.. Heart: RRR without murmur, gallop, or rubs. No ectopy. Neurologic: Gait normal. Reflexes normal and symmetric. Sensation grossly intact.. Health Maintenance List COVID-19 VACCINE(3 - Booster for Moderna series) due on 08/06/2020 SHINGRIX VACCINE(2 of 2) due on 01/20/2021 INFLUENZA(1) due on 10/21/2021 ANNUAL PCP TEAM CHRONIC DISEASE VISIT due on 11/16/2022 DIABETES SCREEN due on 10/20/2024 COLORECTAL CANCER SCREENING due on 07/09/2025 PROSTATE CANCER SCREENING DISCUSSION due on 10/20/2026 LIPID SCREEN due on 10/23/2026 DTAP,TDAP,TD(2 - Td or Tdap) due on 07/30/2029 HEPATITIS C SCREENING Completed HIV SCREENING Completed ASSESSMENT/PLAN: 1. Tinea corporis - ICD9: 110.5, ICD10: B35.4 (primary diagnosis) - Treat with lotrim twice a day until rash resolves and then another week - Keep area of concern very dry. Ok to use OTC antifungal powder if area is moist - Follow up with PCP if symptoms persist or do not improved after 4-6 weeks of treatment. - CLOTRIMAZOLE 1 % TOPICAL CREAM 2. Urinary frequency - ICD9: 788.41, ICD10: R35.0 Stable. Well controlled. Refilled. - FINASTERIDE 5 MG TABLET 3. Anxiety with depression - ICD9: 300.4, ICD10: F41.8 Restart SSRI therapy with Prozac 10 mg daily. Follow-up in 6 weeks VV to reassess -- possible need to increase dosage based on prior regimen. Ativan prn as needed for situation anxiety, especially while SSRI reaches therapeutic goal of resolution of symptoms. - FLUOXETINE 10 MG CAPSULE - LORAZEPAM 0.5 MG TABLET 4. Situational anxiety - ICD9: 300.09, ICD10: F41.8 See above. RTO in 6 weeks to reassess mood and medication regimen. Prescription instructions reviewed with patient as applicable. Potential red flag symptoms discussed with the patient. Reviewed appropriate action plan to take if red flag symptoms occur. Patient agreeable to treatment plan. Rosalina Perez APRN.CNP [address] [place] [address] documented in this encounterC[facility]10-05-2022 Instructions* Patient Instructions* Luz Elena Edouard APRN.CNP - 11/24/2021 4:46 PM EDT ASSESSMENT/PLAN: 1. Tinea corporis - ICD9: 110.5, ICD10: B35.4 - Treat with clotrimazole twice a day until rash resolves and then another week - Keep area of concern very dry. Ok to use OTC antifungal powder if area is moist - Follow up with PCP if symptoms persist or do not improved after 4-6 weeks of treatment. documented in this encounterC[facility]10-05-2022 History of Present illness Narrative* Luz Elena Edouadr APRN.CNP - 11/24/2021 4:42 PM EDT Images from the original note were not included. Subjective The history is provided by the patient. No silk spooler was used. HPI Kacey Bentley is a 61 year old male who presents today for CC of rash on chest for 2-3 days. He denies any new soaps lotions or detergents, exposure in wooded area. He has not used any treatment or medication. No new medications, exposure to farm or zoo animals. BP 122/78 Pulse 90 Temp 36.2 C (97.1 F) Resp 20 Wt 92.6 kg (204 lb 3.2 oz) SpO2 98% BMI27.89 kg/m Social History Tobacco Use Smoking status: Former Packs/day: 1.25 Years: 35.00 Pack years: 43.75 Types: Cigarettes Quit date: 02/20/2005 Years since quittin.7 Smokeless tobacco: Never Substance Use Topics Alcohol use: Yes Alcohol/week: 2.5 - 5.0 standard drinks Types: 1 - 2 Mixed Drinks per week Drug use: Yes Frequency: 7.0 times per week Types: Marijuana Comment: uses daily PAST MEDICAL HISTORY Diagnosis Date Arthritis Colon polyps 03/26/2010 Dr. Salty Rodrigues, by c scope Depression Hyperlipemia BOBBY (obstructive sleep apnea) CPAP Personal history of colonic polyps 03/10/2016 tubular adenoma I have confirmed and edited as necessary, the [facility] Review of Systems Constitutional: Negative for chills and fever. Musculoskeletal: Negative for joint pain and myalgias. Skin: Positive for rash. Negative for itching. All other systems reviewed and are negative. Objective Physical Exam Vitals and nursing note reviewed. Pulmonary: Effort: Pulmonary effort is normal. Skin: General: Skin is warm and dry. Comments: prurtic annular lesions with central clearing,scaling on border Neurological: Mental Status: He is alert and oriented to person, place, and time. Psychiatric: Mood and Affect: Affect normal. ASSESSMENT/PLAN: 1. Tinea corporis - ICD9: 110.5, ICD10: B35.4 - Treat with clotrimazole twice a day until rash resolves and then another week - Keep area of concern very dry. Ok to use OTC antifungal powder if area is moist - Follow up with PCP if symptoms persist or do not improved after 4-6 weeks of treatment. Diagnosis and treatment plan were discussed and questions were answered to the patient's satisfaction. Pt acknowledged understanding of concepts and follow up plan. Specific signs and symptoms that would indicate the need for higher level of care were discussed indetail warranting prompt ER evaluation. Luz Elena Edouard APRN.CNP documented in this encounterCleveland Clinic [facility]09-27-2022 History of Present illness Narrative* Virginia Horner APRN.CNP - 11/16/2021 2:12 PM EDT 11/16/2021 Patient presents with: Thigh Pain: Right upper stabbing pain that comes and goes; not aware of injury SUBJECTIVE: This is a 61 year old that is here today for Above Complaints. ONSET: three days LOCATION: right upper thigh DURATION: last seconds CHARACTERISTICS: like nerves on fire AGGRAVATING FEATURES: nothing ALLEVIATING FEATURES: does not use anything RADIATION: no Denies past injury or surgery, skin rash, back pain, saddle anaesthesia, extremity numbness/tingling/weakness, urinary/bowel incontinence or inability PAST MEDICAL HISTORY Diagnosis Date Arthritis Colon polyps 03/26/2010 Dr. Salty Rodrigues, by c scope Depression Hyperlipemia BOBBY (obstructive sleep apnea) CPAP Personal history of colonic polyps 03/10/2016 tubular adenoma ALLERGIES Patient has no known allergies. MEDICATIONS Current Outpatient Medications Medication Sig amitriptyline (ELAVIL) 10 mg tablet Take 1 tablet by mouth daily at bedtime. rosuvastatin (CRESTOR) 10 mg tablet Take 1 tablet by mouth daily at bedtime. finasteride (PROSCAR) 5 mg tablet Take 1 tablet by mouth once daily. No current facility-administered medications for this visit. Medications and allergies reviewed by this provider. SOCIAL HISTORY Social History Tobacco Use Smoking status: Former Packs/day: 1.25 Years: 35.00 Pack years: 43.75 Types: Cigarettes Quit date: 02/20/2005 Years since quittin.7 Smokeless tobacco: Never Substance Use Topics Alcohol use: Yes Alcohol/week: 2.5 - 5.0 standard drinks Types: 1 - 2 Mixed Drinks per week Drug use: Yes Frequency: 7.0 times per week Types: Marijuana Comment: uses daily REVIEW OF SYSTEMS All other reviewed and negative other than HPI. OBJECTIVE: BP 144/90 Pulse 75 Resp 18 Wt 93.8 kg (206 lb 12.8 oz) SpO2 98% BMI 28.24 kg/m . Vital signs reviewed by this provider. APPEARANCE Well appearing, alert, in no acute distress, well-hydrated, well nourished. RIGHT LEG: No obvious deformity, erythema, skin rashes, open sores, or swelling COVID-19 VACCINE(3 - Booster for Moderna series) due on 08/06/2020 SHINGRIX VACCINE(2 of 2) due on 01/20/2021 INFLUENZA(1) due on 10/21/2021 ANNUAL PCP TEAM CHRONIC DISEASE VISIT due on 10/20/2022 DIABETES SCREEN due on 10/20/2024 COLORECTAL CANCER SCREENING due on 07/09/2025 PROSTATE CANCER SCREENING DISCUSSION due on 10/20/2026 LIPID SCREEN due on 10/23/2026 DTAP,TDAP,TD(2 - Td or Tdap) due on 07/30/2029 HEPATITIS C SCREENING Completed HIV SCREENING Completed ASSESSMENT/PLAN: 1. Stabbing pain - ICD9: 780.96, ICD10: R52 (primary diagnosis) - no red flag symptoms or exam findings - red flag symptoms discussed, verbalizes understanding - with three days of symptoms which last seconds no testing at this time - if pain persists could consider EMG testing - follow-up with PCP if persists, to ER with red flag symptoms 2. Elevated BP without diagnosis of hypertension - ICD9: 796.2, ICD10: R03.0 - Encouraged dietary sodium restriction/DASH diet - Recommended regular aerobic exercise. - Recommend home blood pressure monitoring, to bring results in on next visit - Encouraged avoidance of excessive alcohol intake - Follow up in 1 month for BP recheck. - Goal of BP <130/80 Virginia Honrer, INSTRUCTOR WATCH ASSEMBLY.SFDC ARCHITECT Prescription instructions reviewed with patient as applicable. Patient advised if symptoms do not improve or if symptoms worsen sooner, to contact their primary care physician. Potential red flag symptoms discussed with the patient. Reviewed appropriate action plan to take if red flag symptoms occur. Patient agreeable to treatment plan. I spent a total of 25 minutes on the date of the service which included preparing to see the patient, [id number] patient care, completing clinical documentation, obtaining and/or reviewing separately obtained history, performing a medically appropriate examination, and counseling and educating the patient/family/caregiver. documented in this encounterCleveland Clinic [facility]09-19-2022 Instructions* Patient Instructions* Adam Galvez MD - 11/08/2021 4:16 PM EDT Schedule EGD with Dr. Galvez 2. I would recommend trying a low dose of an antidepressant called amitriptyline. This helps to decrease nerve pain and confusion - it works through the serotonin and norepinephrine chemicals in yourbody. I start with a very low dose of 10mg (the max dose is 300mg) and increase it every month as ne eded. The main side effect is sleepiness, so you take it at night before bed. Can you send me a [employer] message in 2-4 weeks? We can increase the dose every 2 weeks if needed 3. Return to clinic in 4-6 months documented in this encounterCleveland Clinic [facility] Hospital09-19-2022 History of Present illness Narrative* Adam Galvez MD - 11/08/2021 3:58 PM EDT Images from the original note were not included. Kacey Delilah Bentley, 61 year old male here for follow-up for dysphagia. LAST SEEN: 03/2021 --Has dysphagia to dry meats, pills --Has fecal urgency. Has used levsin with partial improvement. Has not started amitriptyline Answers submitted by the patient for this visit: Review of Systems Gastroenterology (Submitted on 11/07/2021) Fever: No Chills: No Night Sweats: No Unitentional Weight Change: No A Cough: No Difficulty Breathing: No Chest Pain: No Belly pain: Yes A feeling of fullness or have belly pain after eating: Yes Food getting stuck in your throat or chest after eating: Yes Nausea - that is, a feeling like you could vomit: No Regurgitation - that is, food or liquid coming back up into your throat or mouth without vomiting, or feel burning behind your breast bone: No Loss of appetite: No To throw up or vomit: No Blood in your stools: No Black tarry stools: No Loose or watery stools: No The feeling like you need to empty your bowels right away - that is, feel as if you would have an accident: Yes Bowel incontinence - that is, have an accident because you cannot make it to the bathroom in time: No Problems with straining while having bowel movements , hard or lumpy stools, or feel unfinished (that you have not passed all your stool): Yes Pain in rectum or anus during bowel movements: No Problems with jaundice - that is, yellow discoloration of your skin or eyes, now or in the past: No Problems with having to flush the toilet more than two times due to oily stool, or see stool floating with oil: No ALLERGIES No Known Allergies Current Outpatient Medications Medication Sig Dispense Refill rosuvastatin (CRESTOR) 10 mg tablet Take 1 tablet by mouth daily at bedtime. 90 tablet 3 finasteride (PROSCAR) 5 mg tablet Take 1 tablet by mouth once daily. 90 tablet 3 No current facility-administered medications for this visit. Past medical, surgical and social history is reviewed and unchanged from prior visit. C PHYSICAL EXAMINATION BP 137/77 Pulse 66 Ht 5' 11.75 (1.82m) Wt 204 lb 12.8 oz (92.9kg) SpO2 99% BMI 27.98 kg/(m^2). General appearance: NAD Assessment REVIEWED ITEMS EGD GEN ANES 07/09/20 Medicines:- Midazolam 5 mg IV, Fentanyl 100 micrograms IV, Diphenhydramine 50 mg IV Impression: - Normal examined jejunum. Biopsied. - Duodenitis. - Gastritis. Biopsied. - Small hiatal hernia. - Normal lower third of esophagus. Biopsied. - Normal middle third of esophagus. Biopsied. - Mucosal nodule found in the esophagus Biiopsied. FINAL DIAGNOSIS 1. Jejunum, biopsy (A) - Small bowel mucosa with no diagnostic abnormality. 2. Stomach, antrum, biopsy (B) - Gastric antral-type mucosa with no diagnostic abnormality. 3. Distal esophagus, biopsy (C) - Squamous mucosa with no diagnostic abnormality. 4. Mid esophagus, biopsy (D) - Squamous mucosa with no diagnostic abnormality. 5. Proximal esophageal nodule, biopsy (E) - Benign squamous papilloma. COLONOSCOPY GEN ANES 07/09/20 Impression - The examined portion of the ileum was normal. Biopsied. - The entire examined colon is normal. Biopsied. - The distal rectum and anal verge are normal on retroflexion view. Final Diagnosis 6. Terminal ileum, biopsy (F) - Small bowel mucosa with no diagnostic abnormality. 7. Random colon, biopsy (G) - Colonic mucosa with no diagnostic abnormality. US ABD RT UPPER QUADRANT 01/05/18 IMPRESSION: Coarse, heterogeneous liver echotexture, suggesting hepatocellular disease. No cholelithiasis or convincing sonographic evidence for acute cholecystitis. No biliary dilation. IMPRESSION 61M with history of dysphagia to pills and solids. EGD in 2020 with normal distal esophagus on report; however, on my view of the endoscopic pics I wonder if there is a significant ring at the EG junction. He had small nodule in the esophagus - squamous papilloma - this is benign and would not cause these symptoms. He also has fecal urgency and multiple bowel movements per day - negative colonoscopy with biopsieslast year. He fits Camilo IV criteria for IBS RECOMMENDATION: --EGD with esophageal dilation --He will start amitriptyline 10mg QHS for IBS-D (Ramy et al, APT 2007) --RTC in 4-6 months Adam Galvez MD November 08, 2021 4:01 PM documented in this encounterCleveland Clinic [facility] Hospital09-08-2022 Miscellaneous Notes* Telephone Encounter - Jennifer Mccarthy LPN - 10/28/2021 10:05 AM EDT Pt's Jonathan notified of results. Jennifer Mccarthy LPN * Telephone Encounter - Sherri Razo Ma - 10/28/2021 9:43 AM EDT left with patient to contact office for results Sherri Razo Ma * Telephone Encounter - Jules Haynes DO - 10/27/2021 10:02 PM EDT Please inform patient that overall thyroid Us is stable, no concerns Jules Haynes DO documented in this encounterCleveland Clinic [facility] Hospital09-07-2022 Miscellaneous Notes* Telephone Encounter - Adrienne Gomez Cma - 10/27/2021 10:21 AM EDT Patient notified and verbalized understanding Adrienne Gomez Cma * Telephone Encounter - Rosalina Perez APRN.CNP - 10/27/2021 9:34 AM EDT RX signed and sent over. Please also let patient know that Vitamin D level is slightly low. I would recommend an OTC 2000 units per day of vitamin D3. Thank you, Rosalina Perez APRN.CNP The following approved medication requests have been transmitted electronically. Requested Prescriptions Signed Prescriptions Disp Refills rosuvastatin (CRESTOR) 10 mg tablet 90 tablet 3 Sig: Take 1 tablet by mouth daily at bedtime. Authorizing Provider: ROSALINA PEREZ APRN.CNP * Telephone Encounter - Adrienne Gomez Cma - 10/27/2021 8:57 AM EDT Patient notified and verbalized understanding. Patient would like script [facility] pended please sign Adrienne Gomez Cma * Telephone Encounter - Rosalina Perez APRN.CNP - 10/27/2021 8:52 AM EDT Lipid panel remains elevated even with fasting. I recommend restarting Crestor regimen of 10 mg daily. I have sent RX to pharmacy if pt agreeable. The following approved medication requests have been transmitted electronically. Requested Prescriptions Signed Prescriptions Disp Refills rosuvastatin (CRESTOR) 10 mg tablet 90 tablet 3 Sig: Take 1 tablet by mouth daily at bedtime. Authorizing Provider: ROSALINA PEREZ APRN.CNP documented in this encounterCleveland Clinic Mercy Hospital09-01-2022 Miscellaneous Notes* Telephone Encounter - PALMER Funk - 10/21/2021 2:36 PM EDT Previously addressed in TE from 10/21. Pt was notified of results and further recommendations. PALMER Funk * Telephone Encounter - Rosalina Perez APRN.CNP - 10/21/2021 9:55 AM EDT Please refer to TE from this morning about results. Thank you, Rosalina Perez APRN.TIMUR * Telephone Encounter - Sherri Razo Ma - 10/21/2021 8:13 AM EDT Please see pt message documented in this encounterCleveland Clinic Mercy Hospital09-01-2022 Miscellaneous Notes* Telephone Encounter - Hanh Daley LPN - 10/21/2021 10:31 AM EDT Pt notified of such. * Telephone Encounter - Rosalina Perez APRN.CNP - 10/21/2021 10:12 AM EDT Noted. Orders placed. If still elevated, need to consider restarting Crestor. Thank you, Rosalina Perez APRN.CNP * Telephone Encounter - Hanh Daley LPN - 10/21/2021 9:59 AM EDT Spoke with pt gave information provided. Voices understanding. States was not fasting had pancakes for breakfast . Will come back and have drawn when fasting. * Telephone Encounter - Rosalina Perez APRN.CNP - 10/21/2021 9:48 AM EDT Please call patient and let him know that blood work results overall look great! Thyroid levels are normal. T4 is very slightly low. The thyroid antibody test is still not resulted. I will let them know once this is back. With these values and patient feeling well, I don't suggest restarting thyroid medication at this time unless patient would like. Iron levels are normal. Vitamin b12 is normal. Vit D is still in process. PSA normal. Liver function looks great! No concerns. Lipid panel is elevated. Please ask pt if this was fasting. If not, I would like redraw while fasting. Lipids looked to be stable and well controlled 2-3 years ago while he was on the Crestor. If labs were fasting, I recommend restarting low dose Crestor if willing. Thank you, Rosalina Perez APRN.CNP documented in this encounterC[facility]-31-2022 Instructions* Patient Instructions* Rosalina Perez APRN.CNP - 10/20/2021 3:39 PM EDT Schedule thyroid US Get blood work done. Follow-up with GI Dr. Galvez about surgery. documented in this encounterCleveland Clinic [facility]08-31-2022 History of Present illness Narrative* Rosalina Perez APRN.SFDC ARCHITECT - 10/20/2021 3:00 PM EDT Chief Complaint Patient presents with: ER F/U: Was seen at [facility] for cellulitis . States stepped on a nail. HPI Kacey Bentley is a 61 year old male who presents here today for Above Complaints. Kacey is an established patient of Dr. Dallas DO. Kacey is a new patient to me today. Concerns today.. ER Follow-up -- [facility] ED visit on 09/25/21 d/t cellulitis of L foot from wound after stepping on a nail. CBC normal including WBC. CMP unremarkable -- BUN and CR slightly elevated. GFR normal. X-ray of L foot -- normal. Given tetanus shot. Admitted to hospital x 3 days. Started on IV antibiotics, sent home on oral antibiotic (unknown what antibiotic). Today... Finished entire antibiotic regimen as prescribed. No concerns. Wound healed well. 3 weeks post-hospital visit. No redness, warmth, fevers, swelling, or irritation at site. Esophageal stenosis and dysphagia -- Had EGD done June 2020. Noted hiatal hernia. Mucosal nodule found - benign. normal distal esophagus on report. Followed up with Dr. Galvez at [facility] that noted significant ring at the EG junction from EGD. Dr. Galvez recommended EGD with esophageal dilation and manometry. This was never followed up by pt and he admits forgetting to schedule this. Denies any recent GERD/heartburn symptoms. Reports no recent dysphagia episodes. Stopped taking all of his medication. Did not think they were helping. The only medications he is interested in restarting is levothyroxine and proscar if needed. Subclinical hypothyroidism --- Was prescribed levothyroxine 50 mcg daily. Has been without levothyroxine for 3- 4 months now. Is willing to restart medication if needed. Was seen by operational communication chief outside [facility] that said he does nothave hypothyroidism and does not really need to be on this medication so patient stopped. US thyroid in Feb 2020- normal. Repeat ordered in November 2020 d/t dysphagia symptoms that patient never scheduled. Component Latest Ref Rng & Units 02/28/2020 07/29/2020 11/26/2020 03/24/2021 TSH 0.270 - 4.200 uU/mL 4.430 (H) 4.630 (H) 2.230 1.450 T3 79 - 165 ng/dL 105 97 Free T4 0.9 - 1.7 ng/dL 0.9 0.9 0.8 (L) 0.9 Free T3 2.3 - 4.1 pg/mL 2.6 2.9 Pt reports extreme fatigue recently over the past few months. Otherwise, no other symptoms of hypothyroidism. Denies constipation, weight gain, cold intolerance, etc. HLD -- Was on crestor 10 mg daily. Has not taken this for some time per pt. IBD-- Levsin as needed. Reports IBD to be well controlled and managed at this time. No recent episodes orflares. Anxiety/depression -- Stable. Well controlled without prior prozac 40 mg rx. Has not taken this for years. Vitamin D deficiency -- Stopped supplement. Past medical history, appointments, medications, allergies reviewed. Previous Medical History PAST MEDICAL HISTORY Diagnosis Date Arthritis Colon polyps 03/26/2010 Dr. Salty Rodrigues, by c scope Depression Hyperlipemia BOBBY (obstructive sleep apnea) CPAP Personal history of colonic polyps 03/10/2016 tubular adenoma Previous Surgical History PAST SURGICAL HISTORY Procedure Laterality Date CARPAL TUNNEL 2012 both wrists COLONOSCOPY 2010 COLONOSCOPY GEN ANES 07/09/2020 Repeat in 5 years EGD 07/10/2020 PAST SURGICAL HISTORY OF Bone tumor age 14 PAST SURGICAL HISTORY OF deviated septum repair PROCEDURE RM-COLONSCOPY W/BX 11/2017 Family History FAMILY HISTORY Problem Relation Age of Onset Emphysema Mother 62 Colon Cancer Brother 58 Heart Paternal Grandmother Heart Paternal Grandfather other (black lung) Maternal Grandfather Patient Allergies ALLERGIES No Known Allergies Current Medications Current Outpatient Medications on File Prior to Visit Medication Sig amitriptyline (ELAVIL) 10 mg tablet Take 1 tablet by mouth daily at bedtime. finasteride (PROSCAR) 5 mg tablet Take 1 tablet by mouth once daily. hyoscyamine sublingual (LEVSIN SL) 0.125 mg For irritable bowel syndrome, Take 1-2 tablets under tongue every 4hrs as needed. Max 12 tabs per day. levothyroxine (LEVOXYL) 50 mcg tablet Take 1 tablet by mouth once daily. Take on empty stomach. ForThyroid FLUoxetine HCl (PROZAC) 40 mg capsule Take 1 capsule by mouth once daily. polyethylene glycol 3350 (MIRALAX, GLYCOLAX) 17 gram/dose powder Use as directed for Miralax / Gatorade Bowel Prep Kit Gatorade Sports Drink Use as directed for Miralax / Gatorade Bowel Prep Kit Bisacodyl (DULCOLAX) 5 mg tab Use as directed for Miralax / Gatorade Bowel Prep Kit Cholecalciferol, Vitamin D3, 125 mcg (5,000 unit) cap Take 1 capsule by mouth once daily. rosuvastatin (CRESTOR) 10 mg tablet Take 1 tablet by mouth daily at bedtime. lansoprazole (PREVACID) 30 mg capsule Take 1 capsule by mouth once daily. No current facility-administered medications on file prior to visit. Social History Social History Tobacco Use Smoking status: Former Packs/day: 1.25 Years: 35.00 Pack years: 43.75 Types: Cigarettes Quit date: 02/20/2005 Years since quittin.6 Smokeless tobacco: Never Substance Use Topics Alcohol use: Yes Alcohol/week: 2.5 - 5.0 standard drinks Types: 1 - 2 Mixed Drinks per week Drug use: Yes Frequency: 7.0 times per week Types: Marijuana Comment: uses daily REVIEW OF SYSTEMS: as above Reviewed relevant PMHx, PSHx, Social Hx, current medications and allergies. Review of Symptoms REVIEW OF SYSTEMS See HPI. All other systems are negative. EXAM: BP 100/60 (BP Site: Left Arm, BP Position: Sitting, BP Cuff Size: Regular Adult) Pulse 72 Resp 16 Wt 91.2 kg (201 lb) BMI 28.03 kg/m General Appearance: Well appearing, alert, in no acute distress, well-hydrated, well nourished.. Skin: Skin color, texture, turgor normal, no suspicious rashes or lesions. Head: Normocephalic, no masses, lesions, tenderness or abnormalities. Lungs: Lungs clear to auscultation. No wheezing, rhonchi, rales.. Heart: RRR without murmur, gallop, or rubs. No ectopy. Extremities: No deformities, edema, skin discoloration, clubbing or cyanosis. Good capillary refill. . Musculoskeletal: No joint swelling, deformity, or tenderness. Peripheral Pulses: Normal. Neurologic: Gait normal. Reflexes normal and symmetric. Sensation grossly intact.. Health Maintenance List COVID-19 VACCINE(3 - Booster for Moderna series) due on 11/11/2020 SHINGRIX VACCINE(2 of 2) due on 01/20/2021 INFLUENZA(1) due on 10/21/2021 ANNUAL PCP TEAM CHRONIC DISEASE VISIT due on 03/24/2022 DIABETES SCREEN due on 03/24/2024 LIPID SCREEN due on 07/30/2024 PROSTATE CANCER SCREENING DISCUSSION due on 07/30/2024 COLORECTAL CANCER SCREENING due on 07/09/2025 DTAP,TDAP,TD(2 - Td or Tdap) due on 07/30/2029 HEPATITIS C SCREENING Completed HIV SCREENING Completed ASSESSMENT/PLAN: 1. Fatigue, unspecified type - ICD9: 780.79, ICD10: R53.83 (primary diagnosis) x a few months. Hx of subclinical hypothyroidism dx. Has not been taking levothyroxine. Also stopped vitamin D supplement. - TSH BLD - T3 BLD - T4 FREE/FREE THYROX - VITAMIN D 25 HYDROXY - IRON + TIBC - FERRITIN BLD - THYROID PEROXIDASE ANTIBODY BLOOD - VITAMIN B12 BLOOD - CBC + DIFF - COMP METABOLIC PANEL 2. Cellulitis of left lower extremity - ICD9: 682.6, ICD10: L03.116 Improved and completely resolved from prior ED visit 3 weeks ago. 3. Esophageal dysphagia - ICD9: 787.29, ICD10: R13.19 Stable. Well managed currently. Does have interest in recommended EGD and dilation by Dr. Galvez from March. Pt is ready to follow-up and continue with regimen. Pt understands to reach out to Dr. Galvez office to schedule -- RUBEN Schafer helped to facilitate. 4. Subclinical hypothyroidism - ICD9: 244.8, ICD10: E03.8 Will determine need for medication with blood work today. Schedule US of thyroid as ordered prior. - TSH BLD - T3 BLD - T4 FREE/FREE THYROX - THYROID PEROXIDASE ANTIBODY BLOOD 5. Hypercholesteremia - ICD9: 272.0, ICD10: E78.00 To determine based off of blood work. - LIPID PANEL BASIC 6. Urinary frequency - ICD9: 788.41, ICD10: R35.0 Refilled. - FINASTERIDE 5 MG TABLET - PSA/PROSTSPECAG SCRN 7. Irritable bowel syndrome with diarrhea - ICD9: 564.1, ICD10: K58.0 Stable. Well controlled currently. RTO as needed. Prescription instructions reviewed with patient as applicable. Potential red flag symptoms discussed with the patient. Reviewed appropriate action plan to take if red flag symptoms occur. Patient agreeable to treatment plan. Rosalina Perez APRN.CNP [address] [place] [address] documented in this encounterCleveland Clinic [facility]08-08-2022 [facility] Medical Records Department [address] [place] [address] Discharge Summary 09/27/21 0738 MR#: [id number] Acct: [id number] Name: KACEY BENTLEY Rep #: [id number] : 1960 61 From: Yuval Angel MD PCP: Dr. Jules Haynes, Status:ADM IN Location: [place] [address] Providers Date of Admission: 09/25/21 Date of Discharge: 09/27/21 Primary Care Physician: Dr. Jules Haynes DO Reason For Visit: LEFT LEG CELLULITUS Diagnosis Discharge Diagnosis (1) Cellulitis and abscess of left leg: Status: Acute Code(s): L03.116 - Cellulitis of left lower limb; L02.416 - Cutaneous abscess of left lower limb Medications at Discharge Home Medications cefdinir 300 mg capsule 300 mg PO Q12H #10 caps 09/27/21 Hospital Course Summary of Care Provided Minutes Spent on Discharge: 35 Hospital Course: Patient is a 61-year-old gentleman who presented with erythema and pain involving the left lower extremity. He had apparently stepped on a nail a day prior to his admission. An assessment of cellulitis involving the left lower extremity made admitted to regular nursing floor for further management 1. Acute left lower extremity cellulitis ??? Following traumatic nail injury. Patient did receive tetanus booster in the ED started on vancomycin and Zosyn admitted to regular nursing floor for further management ??? 09/27/2021 patient responded to treatment discharged home on cefdinir 300 mg p.o. twice daily for5 days 2. Chronic alcohol use ??? Patient being monitored for possible alcohol withdrawal 3. DVT prophylaxis ??? Lovenox Physical Exam Narrative GENERAL: cooperative HEENT: Atraumatic; EYES; Anicteric, Normal Conjunctiva NECK; supple, normal thyroid, RESPIRATORY: Diminished to auscultation CARDIOVASCULAR: Regular S1 S2, GI: soft, normoactive bowel sounds, : No Renal angle tenderness; EXTREMITIES: No edema, no clubbing, MUSCULOSKELETAL: no muscle wasting NEURO: Awake; no lateralizing signs. SKIN: Erythema involving the left foot resolved PSYCH; Flat affect Weight / BMI Weight Weight: 89.6 kg Body Mass Index (BMI) 27.5 ABG / Lab / Microbiology Data Result Diagrams: 09/27/21 04:15 09/27/21 04:15 Laboratory: Laboratory Results - last 24 hr 09/27/21 04:15: WBC 6.0, RBC 4.19 L, Hgb 13.6, Hct 39.8 L, MCV 95.0 H, MCH 32.5 H, MCHC 34.2, RDW Std Deviation 40.8, RDW Coeff of [place] 11.8, Plt Count 138 L, MPV 10.0, Immature Gran % (Auto) 0.200, Neut % (Auto) 53.2, Lymph % (Auto) 30.2, [place] % (Auto) 10.8 H, Eos % (Auto) 5.3 H, Baso % (Auto) 0.3, Absolute Neuts (auto) 3.2, Absolute Lymphs (auto) 1.82, Nucleated RBC % 0 09/27/21 04:15: Sodium 138, Potassium 4.0, Chloride 105, Carbon Dioxide 29.0, Anion Gap 4 L, BUN 18, Creatinine 0.93, Estim Creat Clear Calc 86.59, Est GFR (MDRD) Af Amer 105, Est GFR (MDRD) Non-Af 87, BUN/Creatinine Ratio 19.3, Glucose 106, Calcium 8.5 D/C Instructions Discharge Diet: No restrictions Discharge Activity: Return to Normal Activity Call your doctor if you observe: Fever of 101 or Higher, Shortness of breath, Fainting spells and Chest pain Meaningful Use Info Meaningful Use Diagnoses (Choose all that apply): None applicable Discharge Plan Admission Admit Date/Time: 09/25/21 21:37 Attending Provider: Yuval Angel Primary Care Provider: Jules Haynes Consulting Providers: Sherron Crockett Discharge Orders/Prescriptions Prescriptions: New cefdinir 300 mg capsule 300 mg PO Q12H Qty: 10 0RF Referrals / Follow Up: Jules Haynes DO [Primary Care Provider] - In 1 Week Disposition Disposition (needs filled in before D/C Order can be placed): Home, Self Care Charges/Coding Visit Charges Inpatient E M: 57409 Disch Hosp 09/27/21 1059 Cosigner Signature (if applicable): CC: Dr. Yuval Angel MD; Dr. Jules Haynes DO SignedV[facility] Administration08-06-2022 Miscellaneous Notes* Telephone Encounter - Za Oliveira RN - 09/25/2021 7:42 PM EDT Reason for call: Puncture of left foot with chato nail Outcome: Patient advised to go to the ED within the next 4 hours for evaluation. Patient verbalizesunderstanding and agreeable, will go to [facility]. Reason for Disposition [1] Puncture wound of foot AND [2] puncture went through shoe (e.g., tennis shoe) Answer Assessment - Initial Assessment Questions 1. LOCATION: Left foot 2. OBJECT: Chato Nail, went right through sole of boot into foot 3. DEPTH: Patient unsure, reports I can see a line in my foot like maybe 1/4 deep 4. ONSET: 09/24/21 1 PM 5. PAIN: Reports no constant pain, however patient has pain with walking, which is pretty bad, butI think it's expected after stepping on a nail. Reports the foot is hot, swollen, I can feel the fluid moving around under my foot if I touch it,denies generalized redness or streaking from puncture site. 6. TETANUS: Unknown, they told me last year it was up to date 7. : N/A Protocols used: Puncture [id number] documented in this encounterCleveland Clinic Mer[facility] Hospital06-07-2022 History of Present illness Narrative* Mariana Weller APRN.SFDC ARCHITECT - 07/27/2021 8:29 AM EDT Images from the original note were not included. Subjective Patient came in with complaints of bleeding wound. patient cut himself with punning morgan yesterday and a steri was placed and patient is bleeding through the bandage. patient does have factor five. The history is provided by the patient. No silk spooler was used. Review of Systems Constitutional: Negative. Skin: Negative. Objective Physical Exam Constitutional: Appearance: Normal appearance. Pulmonary: Effort: Pulmonary effort is normal. Skin: Comments: Laceration about 2 min length. Not actively bleeding at this moment but bandage is very saturated and blood is running down arm from bandage. Neurological: Mental Status: He is alert. PAST MEDICAL HISTORY Diagnosis Date Arthritis Colon polyps 03/26/2010 Dr. 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 MEDICATIONS amitriptyline (ELAVIL) 10 mg tablet Take 1 tablet by mouth daily at bedtime. finasteride (PROSCAR) 5 mg tablet Take 1 tablet by mouth once daily. hyoscyamine sublingual (LEVSIN SL) 0.125 mg For irritable bowel syndrome, Take 1-2 tablets under tongue every 4hrs as needed. Max 12 tabs per day. levothyroxine (LEVOXYL) 50 mcg tablet Take 1 tablet by mouth once daily. Take on empty stomach. ForThyroid FLUoxetine HCl (PROZAC) 40 mg capsule Take 1 capsule by mouth once daily. Cholecalciferol, Vitamin D3, 125 mcg (5,000 unit) cap Take 1 capsule by mouth once daily. rosuvastatin (CRESTOR) 10 mg tablet Take 1 tablet by mouth daily at bedtime. lansoprazole (PREVACID) 30 mg capsule Take 1 capsule by mouth once daily. polyethylene glycol 3350 (MIRALAX, GLYCOLAX) 17 gram/dose powder Use as directed for Miralax / Gatorade Bowel Prep Kit Gatorade Sports Drink Use as directed for Miralax / Gatorade Bowel Prep Kit Bisacodyl (DULCOLAX) 5 mg tab Use as directed for Miralax / Gatorade Bowel Prep Kit FAMILY HISTORY Problem Relation Age of Onset Emphysema Mother 62 Colon Cancer Brother 58 Heart Paternal Grandmother Heart Paternal Grandfather other (black lung) Maternal Grandfather Social History Tobacco Use Smoking status: Former Smoker Packs/day: 1.25 Years: 35.00 Pack years: 43.75 Types: Cigarettes Quit date: 02/20/2005 Years since quittin.4 Smokeless tobacco: Never Used Substance Use Topics Alcohol use: Yes Alcohol/week: 2.5 - 5.0 standard drinks Types: 1 - 2 Mixed Drinks per week Drug use: Yes Frequency: 7.0 times per week Types: Marijuana Comment: uses daily ASSESSMENT/PLAN: 1. Visit for wound check - ICD9: V58.89, ICD10: Z51.89 Removed old bandage to find significant amount of blood under it and clots. Patient wound was cleansed and a non stick Telfa placed with a 4x4 gauze folded over it then OpSite placed over this for pressure dressing. Circulation is intact OpSite only placed over area of wound does not wrap around entire arm. instructed to leave in place at least 24 hours and monitor for bleeding. Mariana Weller APRN.TIMUR documented in this encounterCleveland Clinic [facility]06-06-2022 History of Present illness Narrative* Katherin English APRN.CNP - 07/26/2021 4:30 PM EDT Images from the original note were not included. Subjective Kacey Bentley is a 61 year old male who presents with a laceration to the left forearm. He reports that he stabbed his left forearm with morgan while trimming trees approximately 15 minutes ago. Denies significant bleeding and reports he has been applying pressure to site. Last tetanus vaccine in 2019. The history is provided by the patient. No silk spooler was used. Review of Systems Constitutional: Negative for chills and fever. Musculoskeletal: See HPI Skin: Negative for itching and rash. See HPI Neurological: Negative for tingling, sensory change and weakness. BP 110/76 Pulse 103 Temp 36.4 C (97.6 F) Resp 20 Wt 91.3 kg (201 lb 3.2 oz) SpO2 95% BMI 28.06 kg/m PAST MEDICAL HISTORY Diagnosis Date Arthritis Colon polyps 03/26/2010 Dr. 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 MEDICATIONS amitriptyline (ELAVIL) 10 mg tablet Take 1 tablet by mouth daily at bedtime. finasteride (PROSCAR) 5 mg tablet Take 1 tablet by mouth once daily. hyoscyamine sublingual (LEVSIN SL) 0.125 mg For irritable bowel syndrome, Take 1-2 tablets under tongue every 4hrs as needed. Max 12 tabs per day. levothyroxine (LEVOXYL) 50 mcg tablet Take 1 tablet by mouth once daily. Take on empty stomach. ForThyroid FLUoxetine HCl (PROZAC) 40 mg capsule Take 1 capsule by mouth once daily. polyethylene glycol 3350 (MIRALAX, GLYCOLAX) 17 gram/dose powder Use as directed for Miralax / Gatorade Bowel Prep Kit Gatorade Sports Drink Use as directed for Miralax / Gatorade Bowel Prep Kit Bisacodyl (DULCOLAX) 5 mg tab Use as directed for Miralax / Gatorade Bowel Prep Kit Cholecalciferol, Vitamin D3, 125 mcg (5,000 unit) cap Take 1 capsule by mouth once daily. rosuvastatin (CRESTOR) 10 mg tablet Take 1 tablet by mouth daily at bedtime. lansoprazole (PREVACID) 30 mg capsule Take 1 capsule by mouth once daily. FAMILY HISTORY Problem Relation Age of Onset Emphysema Mother 62 Colon Cancer Brother 58 Heart Paternal Grandmother Heart Paternal Grandfather other (black lung) Maternal Grandfather Social History Tobacco Use Smoking status: Former Smoker Packs/day: 1.25 Years: 35.00 Pack years: 43.75 Types: Cigarettes Quit date: 02/20/2005 Years since quittin.4 Smokeless tobacco: Never Used Substance Use Topics Alcohol use: Yes Alcohol/week: 2.5 - 5.0 standard drinks Types: 1 - 2 Mixed Drinks per week Drug use: Yes Frequency: 7.0 times per week Types: Marijuana Comment: uses daily Objective Physical Exam Vitals and nursing note reviewed. Constitutional: Appearance: Normal appearance. Musculoskeletal: Left elbow: Normal range of motion. Left forearm: Laceration present. No swelling, deformity or tenderness. Left wrist: Normal range of motion. Normal pulse. Left hand: Normal range of motion. Normal strength. Normal sensation. Normal capillary refill. Arms: Skin: General: Skin is warm. Capillary Refill: Capillary refill takes less than 2 seconds. Neurological: Mental Status: He is alert. ASSESSMENT/PLAN: 1. Laceration of left forearm, initial encounter - ICD9: 881.00, ICD10: S51.812A -Wound cleansed and steri-strip applied. -Leave steri-strip in place until it falls off -Return with signs of infection: redness, warmth, increased pain NOBLE Hansen student TEACHING PROVIDER (Physician/PA/INSTRUCTOR WATCH ASSEMBLY) NOTE OF PERSONAL INVOLVEMENT IN CARE: I have personally seen and examined the patient and performed the medical decision-making components. I have reviewed the Advanced Practice Registered Nurse (INSTRUCTOR WATCH ASSEMBLY) Student's documentation and verified the findings in the note as written. Any additions or changes are noted in bold/italics. Signature: Katherin English Date: 07/26/2021 Time: 7:24 PM documented in this encounterCleveland Clinic Mer[facility] Hospital06-06-2022 Instructions* Patient Instructions* Chantell Sidhu - 07/26/2021 4:26 PM EDT ASSESSMENT/PLAN: 1. Laceration of left forearm, initial encounter - ICD9: 881.00, ICD10: S51.812A -Wound cleansed and steri-strip applied. -Leave steri-strip in place until it falls off -Return with signs of infection: redness, warmth, increased pain NOBLE Hansen student documented in this encounterCleveland Clinic [facility]cy Hospital01-08-2021 History of Present illness Narrative* Judy Felton (Rt)Bart - 02/28/2020 4:20 PM EST Radiology Service Progress Note PATIENT NAME: Kacey Bentley DATE OF SERVICE: February 28, 2020 TIME: 4:25 PM PATIENT IDENTITY VERIFICATION COMPLETED USING TWO (2) IDENTIFIERS: Name and Date of confirmedby patient verbally. FALL SCREENING: Has the patient had 2 falls in the last year or 1 fall with injury or currently using an Ambulatory Assistive Device (Walker, Cane, Wheelchair, Crutches, etc.)? No PATIENT GENDER DATA: Male PATIENT RELEVANT IMPLANT DATA REVIEWED: Yes RADIOLOGY DEPARTMENT: General X-ray: Exam(s) Completed: Chest X-Ray PERIPHERAL IV DATA: Not applicable SIGNED BY: RT Ja February 28, 2020 4:25 PM [facility]* Diagnosis Laceration of left forearm, initial encounter- Primary documented in this encounter [facility] note* Diagnosis Visit for wound check- Primary Encounter for other specified aftercare documented in this encounter [facility] note* Diagnosis Onset Date Resolution Status Cellulitis and abscess of left leg acute Puncture wound of foot, left, complicated acute [facility] Work Phone: Evaluation note* Diagnosis Fatigue, unspecified type- Primary Cellulitis of left lower extremity Cellulitis and abscess of leg, except foot Esophageal dysphagia Dysphagia, pharyngoesophageal phase Subclinical hypothyroidism Other specified acquired hypothyroidism Hypercholesteremia Pure hypercholesterolemia Urinary frequency Irritable bowel syndrome with diarrhea Irritable bowel syndrome [facility]* Diagnosis Hypercholesteremia- Primary Pure hypercholesterolemia documented in this encounter [facility] note* Diagnosis Hypercholesteremia Pure hypercholesterolemia documented in this encounter [facility]* Diagnosis Subclinical hypothyroidism Other specified acquired hypothyroidism documented in this encounter [facility] note* Diagnosis Esophageal dysphagia- Primary Dysphagia, pharyngoesophageal phase Irritable bowel syndrome with diarrhea Irritable bowel syndrome documented in this encounter [facility]* Diagnosis Stabbing pain- Primary Pain in limb Elevated BP without diagnosis of hypertension documented in this encounter [facility]* Diagnosis Tinea corporis- Primary Dermatophytosis of the body documented in this encounter [facility]* Diagnosis Tinea corporis- Primary Dermatophytosis of the body Urinary frequency Anxiety with depression Situational anxiety Other anxiety states documented in this encounter [facility]* Diagnosis Esophageal dysphagia Dysphagia, pharyngoesophageal phase documented in this encounter [facility]* Diagnosis Anxiety with depression- Primary Nightmares Other dysfunctions of sleep stages or arousal from sleep documented in this encounter [facility]* Diagnosis Anxiety with depression documented in this encounter [facility]* Diagnosis Lower esophageal ring (Schatzki)- Primary documented in this encounter [facility]* Diagnosis Hospital discharge follow-up- Primary Other follow-up examination Abdominal cramping Abdominal pain, unspecified site Night sweats Generalized hyperhidrosis GERD without esophagitis Esophageal reflux Anxiety with depression documented in this encounter [facility] noteNo assessment information availableWUniversity [facility] Work Phone: Evaluation note* Diagnosis Nightmares- Primary Other dysfunctions of sleep stages or arousal from sleep Fatigue, unspecified type Chronic insomnia Insomnia, unspecified Restless sleeper Sleep disturbance, unspecified BOBBY (obstructive sleep apnea) Obstructive sleep apnea (adult) (pediatric) documented in this encounter [facility] note* Diagnosis Impaired auditory discrimination, left- Primary Closed fracture of nasal bone, initial encounter Chronic rhinitis Deviated nasal septum documented in this encounter [facility]* Diagnosis Hypercholesteremia Pure hypercholesterolemia documented in this encounter [facility]* Diagnosis Nightmares- Primary Other dysfunctions of sleep stages or arousal from sleep Fatigue, unspecified type Chronic insomnia Insomnia, unspecified Restless sleeper Sleep disturbance, unspecified BOBBY (obstructive sleep apnea) Obstructive sleep apnea (adult) (pediatric) documented in this encounter [facility]* Diagnosis BOBBY (obstructive sleep apnea)- Primary Obstructive sleep apnea (adult) (pediatric) Excessive daytime sleepiness Dream enactment behavior [facility] Diagnosis BPPV (benign paroxysmal positional vertigo), unspecified laterality- Primary Dizzy Dizziness and giddiness Nausea Nausea alone [facility] Diagnosis CHRISTOPHER (generalized anxiety disorder)- Primary Generalized anxiety disorder Major depressive disorder, recurrent episode, moderate (HCC) Major depressive disorder, recurrent episode, moderate Night terrors Sleep arousal disorder Marijuana use Cannabis abuse, unspecified Alcohol use [facility] APPOINTMENT CANCELLED- Primary [facility] Diagnosis Abdominal aortic embolism (HCC)- Primary Other arterial embolism and thrombosis of abdominal aorta [facility] Diagnosis PTSD (post-traumatic stress disorder)- Primary Posttraumatic stress disorder CHRISTOPHER (generalized anxiety disorder) Generalized anxiety disorder Marijuana use Cannabis abuse, unspecified Alcohol use Night terrors Sleep arousal disorder [facility] Fatigue, unspecified type- Primary [facility] Diagnosis Fatigue, unspecified type- Primary BOBBY (obstructive sleep apnea) Obstructive sleep apnea (adult) (pediatric) Vivid dream Other dysfunctions of sleep stages or arousal from sleep Nightmares Other dysfunctions of sleep stages or arousal from sleep Restless sleeper Sleep disturbance, unspecified Night sweats Generalized hyperhidrosis Alcohol abuse Alcohol abuse, unspecified [facility] Diagnosis Bilateral carotid artery stenosis- Primary Occlusion and stenosis of carotid artery without mention of cerebral infarction Pure hypercholesterolemia 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) Sleep apnea, unspecified type Aneurysm of ascending aorta without rupture (HCC) [facility] Anxiety with depression [facility] Diagnosis BOBBY (obstructive sleep apnea)- Primary Obstructive sleep apnea (adult) (pediatric) 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 PLMD (periodic limb movement disorder) Periodic limb movement disorder [facility] Diagnosis PTSD (post-traumatic stress disorder)- Primary Posttraumatic stress disorder CHRISTOPHER (generalized anxiety disorder) Generalized anxiety disorder Marijuana use Cannabis abuse, unspecified Alcohol use [facility] Diagnosis Well adult exam- Primary Routine general medical examination at a health care facility Anxiety with depression Vision abnormalities Unspecified visual disturbance Major depressive disorder, recurrent episode, moderate (HCC) Major depressive disorder, recurrent episode, moderate BOBBY (obstructive sleep apnea) Obstructive sleep apnea (adult) (pediatric) Fatigue, unspecified type Subclinical hypothyroidism Other specified acquired hypothyroidism Hypercholesteremia Pure hypercholesterolemia Nightmares Other dysfunctions of sleep stages or arousal from sleep [facility] Diagnosis Cortical age-related cataract, bilateral- Primary Myopia, bilateral Myopia Presbyopia [facility] Diagnosis BOBBY (obstructive sleep apnea)- Primary Obstructive sleep apnea (adult) (pediatric) PLMD (periodic limb movement disorder) Periodic limb movement disorder 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 Anxiety with depression [facility] Diagnosis NO SHOW- Primary [facility]* Diagnosis PLMD (periodic limb movement disorder) Periodic limb movement disorder 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 [facility] Diagnosis Chest tightness Other chest pain [facility] Diagnosis PLMD (periodic limb movement disorder) Periodic limb movement disorder 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 [facility]* Diagnosis 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 [facility] Diagnosis Obstructive sleep apnea (adult) (pediatric)- Primary High risk medication use Encounter for long-term (current) use of other medications 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 PLMD (periodic limb movement disorder) Periodic limb movement 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, shift work type [facility]* Diagnosis Urinary frequency [facility] Diagnosis Urinary frequency [facility] Diagnosis 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, shift work type [facility] Diagnosis 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 [facility]* Diagnosis Fatigue, unspecified type- Primary Need for influenza vaccination Need for prophylactic vaccination and inoculation against influenza BOBBY (obstructive sleep apnea) Obstructive sleep apnea (adult) (pediatric) Anxiety with depression 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 PLMD (periodic limb movement disorder) Periodic limb movement disorder documented in this encounter [facility] note* Diagnosis 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, shift work type documented in this encounter [facility] note* Diagnosis Urinary frequency documented in this encounter [facility] note* Diagnosis 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 documented in this encounter [facility] note* Diagnosis Dog bite of left hand, initial encounter- Primary documented in this encounter [facility] note* Diagnosis 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 documented in this encounter [facility] note* Diagnosis 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 documented in this encounter [facility] note* Diagnosis 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 Obstructive sleep apnea Obstructive sleep apnea (adult) (pediatric) documented in this encounter [facility] Work Phone: Reason for referral (narrative)* Diagnostic Procedure Only (Routine) - Closed Specialty Diagnoses / Procedures Referred By Contjennifer barboza Referred To Contact [facility] Diagnoses Subclinical hypothyroidism Procedures US THYROID/PARATHYROID ULTRASOUND OF THYROID Jules Haynes DO [address] [place] [address] [facility] Referral ID Status Reason Start Date Expiration Date V isits Requested Visits Authorized [id number] Closed Auto-Generate d Referral 11/25/2020 12/25/2021 1 1 [facility] for referral (narrative)* Outpatient Procedure (Routine) - Pending Review Specialty Diagnoses / Procedures Referred By Contjennifer barboza Referred To Contact [facility] Diagnoses Esophageal dysphagia Procedures EGD - THERAPEUTIC, EUS, OR TUBE INTERVENTIONS EGD DILATION GASTRIC/DUODENAL STRICTURE Adam Galvez MD [address] [place] [address] [facility] [address] [place] [address] Referral ID Status Reason Start Date Expiration Date Visits Requested Visits Authorized [id number] Pending Review Auto-Generat ed Referral 11/08/2021 11/08/2022 1 1 [facility] for referral (narrative)* Outpatient Procedure (Routine) - Denied Specialty Diagnoses / Procedures Referred By Mohan barboza Referred To Contact [facility] Diagnoses Esophageal dysphagia Procedures EGD - THERAPEUTIC, EUS, OR TUBE INTERVENTIONS EGD DILATION GASTRIC/DUODENAL STRICTURE Adam Galvez MD [address] [place] [address] [address] Referral ID Status Reason Start Date Expiration Date V isits Requested Visits Authorized [id number] Denied Auto-Generate d Referral 12/28/2021 11/08/2022 1 0 [facility] for referral (narrative)* Outpatient Procedure (Routine) - Pending Review Specialty Diagnoses / Procedures Referred By Mohan barboza Referred To Contact [facility] Diagnoses Lower esophageal ring (Schatzki) Procedures EGD - THERAPEUTIC, EUS, OR TUBE INTERVENTIONS EGD DILATION GASTRIC/DUODENAL STRICTURE Adam Galvez MD [address] [place] [address] [address] Referral ID Status Reason Start Date Expiration Date Visits Requested Visits Authorized [id number] Pending Review Auto-Generat ed Referral 06/17/2022 06/18/2023 1 1 T [facility] for referral (narrative)* Diagnostic Procedure Only (Routine) - Incomplete Specialty Diagnoses / Procedures Referred By Mohan t Referred To Contact [facility] Diagnoses BPPV (benign paroxysmal positional vertigo), unspecified laterality Dizzy Nausea Procedures US CAROTID BILATERAL Virginia Lyon, INSTRUCTOR WATCH ASSEMBLY.[employer] ARCHITECT [address] [place] [address] Us Imaging [id number] Referral ID Status Reason Start Date Expiration Date Visits Requested Visits Authorized [id number] Incomplete Auto-Generat ed Referral 12/21/2022 01/20/2024 1 1 * Outpatient Procedure (Routine) - Authorized Specialty Diagnoses / Procedures Referred By Contac t Referred To Contact [facility] Diagnoses BPPV (benign paroxysmal positional vertigo), unspecified laterality Dizzy Nausea Procedures US CAROTID ARTERIES [facility] DUPLEX SCAN EXTRACRANIAL ART COMPL BI STUDY Virginia Lyon APRN.[employer] ARCHITECT [address] [place] [address] [facility] [address] [address] Referral ID Status Reason Start Date Expiration Date Visits Requested Visits Authorized [id number] Authorized Auto-Generat ed Referral 12/21/2022 12/21/2023 1 1 * Outpatient Procedure (Routine) - Authorized Specialty Diagnoses / Procedures Referred By Contac t Referred To Contact [facility] Diagnoses BPPV (benign paroxysmal positional vertigo), unspecified laterality Dizzy Nausea Procedures ECG COMPLETE ECG ROUTINE ECG W/LEAST 12 LDS W/I&R Virginia Lyon APRN.[employer] ARCHITECT [address] [place] [address] [address] [place] [address] Referral ID Status Reason Start Date Expiration Date Visits Requested Visits Authorized [id number] Authorized Auto-Generat ed Referral 12/21/2022 12/21/2023 1 1 [facility] for referral (narrative)* Outpatient Procedure (Routine) - Authorized Specialty Diagnoses / Procedures Referred By Contac t Referred To Contact [facility] Diagnoses Abdominal aortic embolism (HCC) Procedures ECG COMPLETE ECG ROUTINE ECG W/LEAST 12 LDS W/I&R Edinson Stinson MD [address] [place] [address] [facility] [address] [place] [id number] Referral ID Status Reason Start Date Expiration Date Visits Requested Visits Authorized [id number] Authorized Auto-Generat ed Referral 3 01/30/2024 1 1 [facility] for visit Narrative* Diagnostic Procedure Only (Routine) - Closed Specialty Diagnoses / Procedures Referred By Contjennifer t Referred To Contact [facility] Diagnoses Subclinical hypothyroidism Procedures US THYROID/PARATHYROID ULTRASOUND OF THYROID Jules Haynes, DO [address] [place] [address] Us Imaging Referral ID Status Reason Start Date Expiration Date V isits Requested Visits Authorized [id number] Closed Auto-Generate d Referral 11/25/2020 12/25/2021 1 1 [facility] for visit Narrative* Outpatient Procedure (Routine) - Denied Specialty Diagnoses / Procedures Referred By Mohan barboza Referred To Contact [facility] Diagnoses Esophageal dysphagia Procedures EGD - THERAPEUTIC, EUS, OR TUBE INTERVENTIONS EGD DILATION GASTRIC/DUODENAL STRICTURE Adam Galvez MD [address] [place] [address] [facility] [address] [place] [address] Referral ID Status Reason Start Date Expiration Date V isits Requested Visits Authorized [id number] Denied Auto-Generate d Referral 12/28/2021 11/08/2022 1 0 [facility] Advance Directives No Advanced Directives Records FoundDocuments on File Type Date Recorded 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 Advance Directive(s) 07/09/2020 6:33 AM Advance Directive Response Recorded Date/ Time Living Will No September 25, 2021 10:28pm Power of Paralegal Legal Secretary No September 25 10:28pm Advance Directive Response Recorded Date/ Time Living Will No September 17, 2022 1:30am Power of Paralegal Legal Secretary No September 17 1:30am Chief Complaint and Reason for Visit Chief Complaint LEFT LEG CELLULITUS LEFT LEG CELLULITUS Reason for Visit Cellulitis and absce ss of left leg Puncture wound of foot, left, complicated Chief Complaint LEFT LEG CELLULITUS LEFT LEG CELLULITUS LEFT LEG CELLULITUS LEFT LEG CELLULITUS Reason for Visit Cellulitis and absce ss of left leg Puncture wound of foot, left, complicated Chief Complaint ABD PAIN dizziness, intoxicated Family History No Family History Records Found Relationship Condition Age at Onset Recorded Date/T katharina father Cardiac disease Unknown Hypertension Unknown mother Chronic obstructive pulmonary disease Unk nown Medications Administered Section Inactive Administered Medications - up to 3 most recent administrations Medication Order MAR Action Action Date Dose Rate Site benzocaine 20% (TOPEX) TOPICAL, X (OR/PROCEDURE) PRN, Starting on Mon12/28/21 at 1006, Until Mon12/28/21 at 1006, Intraprocedure Given 12/28/2021 10:06 AM EST 1 [place] diazePAM injection (VALIUM) X (OR/PROCEDURE) PRN, Starting on Mon12/28/21 at 1008, Until Mon12/28/21 at 1013, Intraprocedure Given 12/28/2021 10:13 AM EST 5 mg Given 12/28/2021 10:07 AM EST 5 mg fentaNYL 50 mcg/mL injection (SUBLIMAZE) INTRAVENOUS, X (OR/PROCEDURE) PRN, Starting on Mon12/28/21 at 1007, Until Mon12/28/21 at 1015, Intraprocedure Given 12/28/2021 10:15 AM EST 50 mcg Given 12/28/2021 10:09 AM EST 25 mcg Given 12/28/2021 10:07 AM EST 75 mcg midazolam (PF) injection (VERSED) INTRAVENOUS, X (OR/PROCEDURE) PRN, Starting on Mon12/28/21 at 1007, Until Mon12/28/21 at 1015, Intraprocedure Given 12/28/2021 10:15 AM EST 1 mg Given 12/28/2021 10:09 AM EST 2 mg Given 12/28/2021 10:07 AM EST 3 mg Summary Purpose Reason for Referral Specialty Diagnoses / Procedures Referred By Mohan barboza Referred To Contact Ent - Otolaryngology Diagnoses Nightmares Fatigue, unspecified type Chronic insomnia Restless sleeper BOBBY (obstructive sleep apnea) Procedures CONSULT TO SLEEP SURGERY-ADULT Virginia Lyon, SABINE.[employer] ARCHITECT [address] [place] [address] Referral ID Status Reason Start Date Expiration Date Visits Requested Visits Authorized [id number] Ref Not Required PCP Requested Referral 10/06/2022 09/27/2023 1 1 Specialty Diagnoses / Procedures Referred By Contac t Referred To Contact Diagnoses Impaired auditory discrimination, left Procedures HEARING TEST/AUDIOGRAM COMPRE AUDIOMETRY THRESHOLD EVAL SP Nando Ferrer MD [address] [place] [address] [facility] [address] [place] [address] Referral ID Status Reason Start Date Expiration Date Visits Requested Visits Authorized [id number] Authorized Auto-Generat ed Referral 11/01/2022 01/30/2023 1 1 Referral ID Status Reason Start Date Expiration Date Visits Requested Visits Authorized [id number] Ref Not Required PCP Requested Referral 11/22/2023 1 1 Specialty Diagnoses / Procedures Referred By Contac t Referred To Contact Ent - Otolaryngology Diagnoses BOBBY (obstructive sleep apnea) Excessive daytime sleepiness Dream enactment behavior Procedures CONSULT TO ENT OFFICE/OUTPATIENT [facility] MDM 60-74 MINUTES Marck Hammonds MD [address] [place] [address] Referral ID Status Reason Start Date Expiration Date Visits Requested Visits Authorized [id number] Authorized PCP Requested Referral 12/16/2023 1 1 Specialty Diagnoses / Procedures Referred By Contac t Referred To Contact Diagnoses Fatigue, unspecified type BOBBY (obstructive sleep apnea) Vivid dream Nightmares Restless sleeper Night sweats Procedures CONSULT TO SLEEP MEDICINE - ADULT OFFICE/OUTPATIENT [facility] MDM 60 MINUTES Virginia Lyon APRN.[employer] ARCHITECT [address] [place] [address] Referral ID Status Reason Start Date Expiration Date Visits Requested Visits Authorized [id number] Authorized PCP Requested Referral 03/31/2023 03/30/2024 1 1 Specialty Diagnoses / Procedures Referred By Contac t Referred To Contact [facility] Procedures CARDIOVASCULAR MEDICINE OP FOLLOW UP APPT ORDER Edinson Stinson MD [address] [place] [address] [facility] [address] [place] [address] Referral ID Status Reason Start Date Expiration Date Visits Requested Visits Authorized [id number] Ref Not Required PCP Requested Referral 11/21/2023 05/21/2024 1 1 Specialty Diagnoses / Procedures Referred By Contac t Referred To Contact Dentistry Diagnoses BOBBY (obstructive sleep apnea) RBD (REM behavioral disorder) PLMD (periodic limb movement disorder) Procedures CONSULT TO DENTISTRY OFFICE/OUTPATIENT [facility] 60 MINUTES Jorge Reddy Jr., MD [address] [address] Madhavi Perea DMD [address] [place] [address] Referral ID Status Reason Start Date Expiration Date Visits Requested Visits Authorized [id number] Pending Review PCP Requested Referral 06/23/2023 06/22/2024 1 1 Specialty Diagnoses / Procedures Referred By Contac t Referred To Contact Optometry Diagnoses Vision abnormalities Procedures CONSULT TO OPTOMETRY OFFICE/OUTPATIENT [facility] 60 MINUTES Jules Haynes DO [address] [place] [address] Referral ID Status Reason Start Date Expiration Date Visits Requested Visits Authorized [id number] Authorized PCP Requested Referral 07/31/2023 07/30/2024 1 1 Specialty Diagnoses / Procedures Referred By Contac t Referred To Contact Dentistry Diagnoses Obstructive sleep apnea (adult) (pediatric) Procedures CONSULT TO DENTISTRY OFFICE/OUTPATIENT [facility] 60 MINUTES Jorge Reddy Jr., MD [address] [place] [address] Referral ID Status Reason Start Date Expiration Date Visits Requested Visits Authorized [id number] New Request PCP Requested Referral 01/07/2025 1 1 Additional Source Comments Source Comments (unrecognize d section and content) In the event this informatio n is protected by the Federal Confidentiality of Alcohol and Drug Abuse Patient Records regulations: The Federal rules restrict any use of the information to criminally investigate or prosecute any alcohol or drug abuse patient.[facility] the event this information is protected by the Federal Confidentiality of Alcohol and Drug Abuse Patient Records regulations: The Federal rules restrict any use of the information to criminally investigate or prosecute any alcohol or drug abuse patient.[facility] the event this information is protected by the Federal Confidentiality of Alcohol and Drug Abuse Patient Records regulations: The Federal rules restrict any use of the information to criminally investigate or prosecute any alcohol or drug abuse patient.[facility] the event this information is protected by the Federal Confidentiality of Alcohol and Drug Abuse Patient Records regulations: The Federal rules restrict any use of the information to criminally investigate or prosecute any alcohol or drug abuse patient.[facility] the event this information is protected by the Federal Confidentiality of Alcohol and Drug Abuse Patient Records regulations: The Federal rules restrict any use of the information to criminally investigate or prosecute any alcohol or drug abuse patient.[facility] HospitalIn the event this information is protected by the Federal Confidentiality of Alcohol and Drug Abuse Patient Records regulations: The Federal rules restrict any use of the information to criminally investigate or prosecute any alcohol or drug abuse patient.[facility] HospitalIn the event this information is protected by the Federal Confidentiality of Alcohol and Drug Abuse Patient Records regulations: The Federal rules restrict any use of the information to criminally investigate or prosecute any alcohol or drug abuse patient.[facility] HospitalIn the event this information is protected by the Federal Confidentiality of Alcohol and Drug Abuse Patient Records regulations: The Federal rules restrict any use of the information to criminally investigate or prosecute any alcohol or drug abuse patient.[facility] HospitalIn the event this information is protected by the Federal Confidentiality of Alcohol and Drug Abuse Patient Records regulations: The Federal rules restrict any use of the information to criminally investigate or prosecute any alcohol or drug abuse patient.[facility] HospitalIn the event this information is protected by the Federal Confidentiality of Alcohol and Drug Abuse Patient Records regulations: The Federal rules restrict any use of the information to criminally investigate or prosecute any alcohol or drug abuse patient.[facility] HospitalIn the event this information is protected by the Federal Confidentiality of Alcohol and Drug Abuse Patient Records regulations: The Federal rules restrict any use of the information to criminally investigate or prosecute any alcohol or drug abuse patient.[facility] HospitalIn the event this information is protected by the Federal Confidentiality of Alcohol and Drug Abuse Patient Records regulations: The Federal rules restrict any use of the information to criminally investigate or prosecute any alcohol or drug abuse patient.[facility] HospitalIn the event this information is protected by the Federal Confidentiality of Alcohol and Drug Abuse Patient Records regulations: The Federal rules restrict any use of the information to criminally investigate or prosecute any alcohol or drug abuse patient.[facility] HospitalIn the event this information is protected by the Federal Confidentiality of Alcohol and Drug Abuse Patient Records regulations: The Federal rules restrict any use of the information to criminally investigate or prosecute any alcohol or drug abuse patient.[facility] HospitalIn the event this information is protected by the Federal Confidentiality of Alcohol and Drug Abuse Patient Records regulations: The Federal rules restrict any use of the information to criminally investigate or prosecute any alcohol or drug abuse patient.[facility] HospitalIn the event this information is protected by the Federal Confidentiality of Alcohol and Drug Abuse Patient Records regulations: The Federal rules restrict any use of the information to criminally investigate or prosecute any alcohol or drug abuse patient.[facility] HospitalIn the event this information is protected by the Federal Confidentiality of Alcohol and Drug Abuse Patient Records regulations: The Federal rules restrict any use of the information to criminally investigate or prosecute any alcohol or drug abuse patient.[facility] HospitalIn the event this information is protected by the Federal Confidentiality of Alcohol and Drug Abuse Patient Records regulations: The Federal rules restrict any use of the information to criminally investigate or prosecute any alcohol or drug abuse patient.[facility] HospitalIn the event this information is protected by the Federal Confidentiality of Alcohol and Drug Abuse Patient Records regulations: The Federal rules restrict any use of the information to criminally investigate or prosecute any alcohol or drug abuse patient.[facility] HospitalIn the event this information is protected by the Federal Confidentiality of Alcohol and Drug Abuse Patient Records regulations: The Federal rules restrict any use of the information to criminally investigate or prosecute any alcohol or drug abuse patient.[facility] HospitalIn the event this information is protected by the Federal Confidentiality of Alcohol and Drug Abuse Patient Records regulations: The Federal rules restrict any use of the information to criminally investigate or prosecute any alcohol or drug abuse patient.[facility] HospitalIn the event this information is protected by the Federal Confidentiality of Alcohol and Drug Abuse Patient Records regulations: The Federal rules restrict any use of the information to criminally investigate or prosecute any alcohol or drug abuse patient.[facility] HospitalIn the event this information is protected by the Federal Confidentiality of Alcohol and Drug Abuse Patient Records regulations: The Federal rules restrict any use of the information to criminally investigate or prosecute any alcohol or drug abuse patient.[facility] HospitalIn the event this information is protected by the Federal Confidentiality of Alcohol and Drug Abuse Patient Records regulations: The Federal rules restrict any use of the information to criminally investigate or prosecute any alcohol or drug abuse patient.[facility] HospitalIn the event this information is protected by the Federal Confidentiality of Alcohol and Drug Abuse Patient Records regulations: The Federal rules restrict any use of the information to criminally investigate or prosecute any alcohol or drug abuse patient.[facility] HospitalIn the event this information is protected by the Federal Confidentiality of Alcohol and Drug Abuse Patient Records regulations: The Federal rules restrict any use of the information to criminally investigate or prosecute any alcohol or drug abuse patient.[facility] HospitalIn the event this information is protected by the Federal Confidentiality of Alcohol and Drug Abuse Patient Records regulations: The Federal rules restrict any use of the information to criminally investigate or prosecute any alcohol or drug abuse patient.[facility] HospitalIn the event this information is protected by the Federal Confidentiality of Alcohol and Drug Abuse Patient Records regulations: The Federal rules restrict any use of the information to criminally investigate or prosecute any alcohol or drug abuse patient.[facility] HospitalIn the event this information is protected by the Federal Confidentiality of Alcohol and Drug Abuse Patient Records regulations: The Federal rules restrict any use of the information to criminally investigate or prosecute any alcohol or drug abuse patient.[facility] HospitalIn the event this information is protected by the Federal Confidentiality of Alcohol and Drug Abuse Patient Records regulations: The Federal rules restrict any use of the information to criminally investigate or prosecute any alcohol or drug abuse patient.[facility] HospitalIn the event this information is protected by the Federal Confidentiality of Alcohol and Drug Abuse Patient Records regulations: The Federal rules restrict any use of the information to criminally investigate or prosecute any alcohol or drug abuse patient.[facility] HospitalIn the event this information is protected by the Federal Confidentiality of Alcohol and Drug Abuse Patient Records regulations: The Federal rules restrict any use of the information to criminally investigate or prosecute any alcohol or drug abuse patient.[facility] HospitalIn the event this information is protected by the Federal Confidentiality of Alcohol and Drug Abuse Patient Records regulations: The Federal rules restrict any use of the information to criminally investigate or prosecute any alcohol or drug abuse patient.[facility] HospitalIn the event this information is protected by the Federal Confidentiality of Alcohol and Drug Abuse Patient Records regulations: The Federal rules restrict any use of the information to criminally investigate or prosecute any alcohol or drug abuse patient.[facility] HospitalIn the event this information is protected by the Federal Confidentiality of Alcohol and Drug Abuse Patient Records regulations: The Federal rules restrict any use of the information to criminally investigate or prosecute any alcohol or drug abuse patient.[facility] HospitalIn the event this information is protected by the Federal Confidentiality of Alcohol and Drug Abuse Patient Records regulations: The Federal rules restrict any use of the information to criminally investigate or prosecute any alcohol or drug abuse patient.[facility] HospitalIn the event this information is protected by the Federal Confidentiality of Alcohol and Drug Abuse Patient Records regulations: The Federal rules restrict any use of the information to criminally investigate or prosecute any alcohol or drug abuse patient.[facility] HospitalIn the event this information is protected by the Federal Confidentiality of Alcohol and Drug Abuse Patient Records regulations: The Federal rules restrict any use of the information to criminally investigate or prosecute any alcohol or drug abuse patient.[facility] HospitalIn the event this information is protected by the Federal Confidentiality of Alcohol and Drug Abuse Patient Records regulations: The Federal rules restrict any use of the information to criminally investigate or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 Up Person Family [facility] 01/28/24 Case Sealer Relationship Specialty Start Date End Date Jules Haynes DO [address] [place] [address] PCP - General Family Medicine 06/02/15 Jules Haynes DO [address] [place] [address] Family Medicine 03/05/13 Edinson Stinson MD [address] [facility] [place] [address] Primary Staff Physician Cardiology 05/22/23 Rosalina Morgan, INSTRUCTOR WATCH ASSEMBLY.[employer] ARCHITECT [address] [place] [address] Optical Effects Line Up Person [facility] 01/28/24 Virginia Lyon, INSTRUCTOR WATCH ASSEMBLY.[employer] ARCHITECT [address] [place] [address] Optical Effects Line Up Person Family [facility] 01/28/24 Case Sealer Relationship Specialty Start Date End Date Jules Haynes DO [address] [place] [address] PCP - General Family Medicine 06/02/15 Jules Haynes DO [address] [place] [address] Family Medicine 03/05/13 Edinson Stinson MD [address] [place], [place] [id number] Primary Staff Physician Cardiology 05/22/23 Rosalina Morgan APRN.[employer] ARCHITECT [address] [facility] [place] [address] Optical Effects Line Up Person Family Medicine 01/28/24 Virginia Lyon INSTRUCTOR WATCH ASSEMBLY.[employer] ARCHITECT [address] [facility] [place] [address] Optical Effects Line Up Person [facility] 01/28/24 Case Sealer Relationship Specialty Start Date End Date Jules Haynes DO [address] [facility] [place] [address] PCP - General Family Medicine 06/02/15 Jules Haynes DO [address] [facility] [place] [address] Family Medicine 03/05/13 Edinson Stinson MD [address] [place] [address] Primary Staff Physician Cardiology 05/22/23 Rosalina Morgan INSTRUCTOR WATCH ASSEMBLY.SFDC ARCHITECT [address] [facility] [place] [address] Optical Effects Line Up Person Family [facility] 01/28/24 Virginia Lyon, INSTRUCTOR WATCH ASSEMBLY.[employer]DC ARCHITECT [address] [facility] [place] [address] Optical Effects Line Up Person Family [facility] 01/28/24 Case Sealer Relationship Specialty Start Date End Date Jules Haynes DO [address] [place] [address] PCP - General Family Medicine 06/02/15 Jules Haynes DO [address] [place] [address] Family Medicine 03/05/13 Edinson Stinson MD [address] [place] [address] Primary Staff Physician Cardiology 05/22/23 Rosalina Morgan, INSTRUCTOR WATCH ASSEMBLY.SFDC ARCHITECT [address] [place] [address] [facility]24 Virginia Lyon INSTRUCTOR WATCH ASSEMBLY.SFDC ARCHITECT [address] [place] [address] [facility] 01/28/24 Case Sealer Relationship Specialty Start Date End Date Jules Haynes DO [address] [place] [address] PCP - General Family Medicine 06/02/15 Jules Haynes DO [address] [place] [address] Family Medicine 03/05/13 Edinson Stinson MD [address] [place], [place] [address] Primary Staff Physician Cardiology 05/22/23 Rosalina Morgan, INSTRUCTOR WATCH ASSEMBLY.[employer] ARCHITECT [address] [place] [address] Optical Effects Line Up Person Family [facility] 01/28/24 Virginia Lyon, INSTRUCTOR WATCH ASSEMBLY.SF[employer] ARCHITECT [address] [place] [address] Optical Effects Line Up Person [facility] 01/28/24 Case Sealer Relationship Specialty Start Date End Date Jules Haynes DO [address] [place] [address] PCP - General Family Medicine 06/02/15 Jules Haynes DO [address] [place] [address] Family Medicine 03/05/13 Edinson Stinson MD [address] [place] [address] Primary Staff Physician Cardiology 05/22/23 Virginia Lyon, INSTRUCTOR WATCH ASSEMBLY.SFDC ARCHITECT [address] [place] [address] Optical Effects Line Up Person [facility] 01/28/24 Case Sealer Relationship Specialty Start Date End Date Jules Haynes DO [address] [place] [address] PCP - General Family Medicine 06/02/15 Jules Haynes DO [address] [place] [address] Family Medicine 03/05/13 Edinson Stinson MD [address] [place] [address] Primary Staff Physician Cardiology 05/22/23 Virginia Lyon, INSTRUCTOR WATCH ASSEMBLY.SFDC ARCHITECT [address] [place] [address] Optical Effects Line Up Person Family [facility] 01/28/24 Case Sealer Relationship Specialty Start Date End Date Jules Haynes DO [address] [facility] [place] [address] PCP - General Family Medicine 06/02/15 Jules Haynes DO [address] [place] [address] Family Medicine 03/05/13 Edinson Stinson MD [address] [place] [address] Primary Staff Physician Cardiology 05/22/23 Virginia Lyon, INSTRUCTOR WATCH ASSEMBLY.SF[employer] ARCHITECT [address] [place] [address] Optical Effects Line Up Person [facility] 01/28/24 Case Sealer Relationship Specialty Start Date End Date Jules Haynes DO [address] [place] [address] PCP - General Family Medicine 06/02/15 Jules Haynes DO [address] [place] [address] Family Medicine 03/05/13 Edinson Stinson MD [address] [place] [address] Primary Staff Physician Cardiology 05/22/23 Virginia Lyon, INSTRUCTOR WATCH ASSEMBLY.SF[employer] ARCHITECT [address] [place] [address] Optical Effects Line Up Person Family [facility] 01/28/24 Case Sealer Relationship Specialty Start Date End Date Jules Haynes DO [address] [place] [address] PCP - General Family Medicine 06/02/15 Jules Haynes DO [address] [place] [address] Family Medicine 03/05/13 Edinson Stinson MD [address] [place] [address] Primary Staff Physician Cardiology 05/22/23 Virginia Lyon, INSTRUCTOR WATCH ASSEMBLY.[employer] ARCHITECT [address] [place] [address] Optical Effects Line Up Person Family Medicine 01/28/24 Alicia River, INSTRUCTOR WATCH ASSEMBLY.SFDC ARCHITECT [address] [facility] [place] [address] Optical Effects Line Up Person Family [facility] 08/05/24 Case Sealer Relationship Specialty Start Date End Date Jules Haynes DO [address] [place] [address] PCP - General Family Medicine 06/02/15 Jules Haynes DO [address] [place] [address] Family Medicine 03/05/13 Edinson Stinson MD [address] [place], [place] [address] Primary Staff Physician Cardiology 05/22/23 Virginia Lyon, INSTRUCTOR WATCH ASSEMBLY.SF[employer] ARCHITECT [address] [place] [address] [facility] 01/28/24 Alicia River, INSTRUCTOR WATCH ASSEMBLY.[employer] ARCHITECT [address] [place], [place] [address] [facility] 08/05/24 Case Sealer Relationship Specialty Start Date End Date Jules Haynes DO [address] [place], [place] [address] PCP - General Family Medicine 06/02/15 Jules Haynes DO [address] [place], [place] [address] Family Medicine 03/05/13 Edinson Sitnson MD [address] [place] [address] Primary Staff Physician Cardiology 05/22/23 Virginia Lyon, SABINE.[employer]DC ARCHITECT [address] [place], [place] [address] [facility] 01/28/24 Alicia River, INSTRUCTOR WATCH ASSEMBLY.[employer] ARCHITECT [address] [place], [place] [address] [facility] 08/05/24 Goals (unrecognized section and content) Goals may be documented in a n alternate sectionGoals may be documented in an alternate section (unrecognized sect ion and content) No Status Records FoundNo Status Records FoundNo Status Records Found INFORMATION SOURCE (unrecogn ized section and content) DATE CREATED AUTHOR 09/22/2022 [facility] DATE CREATED AUTHOR 'S ORGANJAMES ATSOFIA 11/23/[address] [facility] DATE CREATED AUTHOR 'S ORGANIZ ATION 08/17/2024 [facility] FOR RECORDS PERTAINING TO PATIENTS WHO ARE OR HAVE BEEN ENROLLED IN A CHEMICAL DEPENDENCY/SUBSTANCEABUSE PROGRAM, SOME INFORMATION MAY BE OMITTED. This clinical summary was aggregated from multiple sources. Caution should be exercised in using it in the provision of clinical care. This summary normalizes information from multiple sources, and as a consequence, information in this document may materially change the coding, format and clinical context of patient data. In addition, data may be omitted in some cases. CLINICAL DECISIONS SHOULD BE BASED ON THE PRIMARY CLINICAL RECORDS. [facility], [facility]. provides no warranty or guarantee of the accuracy or completeness of information in this document.
[2024-08-18 20:55] LABS: Anion Gap 12 (5-15); BUN 17 mg/dL (4-19); BUN/Creat Ratio 13.3 RATIO (10-20); Calcium,Total 9.9 mg/dL (7.6-11.0); Carbon Dioxide 25.7 mmol/L (21.0-32.0); Chloride 102 mmol/L (98-108); EST Glomerular Filtration Rate 61 (>60); Estimated Creatinine Clearance 59.53 ml/min (50-250); Glucose 104 mg/dL (70-99); Sodium Level 140 mmol/L (133-145)
[2024-08-18] MEDS: 0.9% Normal Saline (1000mL) 1,000 ML 999 ML IV (21:38)
[2024-08-18 22:01] LABS: Glucose, Dipstick Normal (Normal); Ketone-Dipstick 5 mg/dl (Negative); Leukocyte Esterase-Dipstick 25 /ul (Negative); Nitrite-Dipstick Negative (Negative); Occult Blood-Urine 250 /ul (Negative); Protein-Dipstick 500 mg/dl (Negative); Urine Bilirubin Dipstick Negative (Negative); Urine Urobilinogen 1 mg/dl (Normal); Urine pH 6.5 (5.0 - 8.0)
[2024-08-18 22:08] VITALS: BP 128/70; PULSE 78; RESP 18; O2SAT 98
[2024-08-18 22:32] LABS: Color, Urine Brown (Yellow); Urine Clarity Cloudy (Clear)
[2024-08-18 22:44] LABS: Red Blood Cells-Urine > 100 SEEN /hpf (0-5); Squamous Epithelial Cells - UA 0-5 SEEN /hpf (0-5); White Blood Cells 10-25 SEEN /hpf (0-5)
[2024-08-18 22:45] LABS: Bacteria RARE /hpf (None Seen); Mucous, Urine 1+ /hpf (<or=2+)
[2024-08-18 22:55] VITALS: BP 128/70; PULSE 78; RESP 18; TEMP 37; O2SAT 98
[2024-08-18] MEDS: Ciprofloxacin 500 MG Tablet PO (23:00)
== END 2024-08-18 23:00 | disposition home or self-care (01) ==
PROVIDERS: Physician Assistant; Emergency Provider Emergency Medicine; PCP Student in an Organized Health Care Education/Training Program; Visit Provider Emergency Medicine
DX: R31.9 Hematuria, unspecified (principal); R39.15 Urgency of urination; E78.5 Hyperlipidemia, unspecified; R10.9 Unspecified abdominal pain; Z87.891 Personal history of nicotine dependence; K21.9 Gastro-esophageal reflux disease without esophagitis
CPT/HCPCS: 74176; 80048; 81001; 85025; 87086; 96360; 99282; A4216

== ENCOUNTER 2024-10-05 00:50 | Emergency (ER) | payer OTHER, SELFPAY ==
[2024-10-05 00:50] VITALS: BP 160/80; PULSE 71; RESP 18; TEMP 36.6; O2SAT 100; BMI 26.3
--- NOTE | 2024-10-05 01:12 | EDS_ITS ---
HPI HPI - GI History of Present Illness Chief Complaint: Flank Pain Informant: patient and spouse/S.O. Narrative Narrative: 64-year-old male seen here a month ago for pain in the left flank he had a negative CT, and he tells me that 4 days ago he had a procedure with [facility] urology in which he had a stent placed on the contralateral side and no other procedure done, this was done at a [facility] in [place]. She states ever since the s tent was placed on the right side has been having pain on the left and gross hematuria with clots and no retention. He presents at 1 AM for this, he states he has not contacted his urologist about any of the symptoms she had. States he is in a lot of pain. He denies any fevers, chills, nausea, vomiting. Pain radiates into his back on both sides, "feels like my kidneys are punched." He states he is on a prophylactic antibiotic, was not diagnosed with any infection but trying to prevent 1. He is still on it and compliant with it. Prior to the procedure he was taken a baby aspirin and advised to stop that, he is still off of it and taking no other antiplatelet or anticoagulant medications. [facility] Medical History BPH (benign prostatic hyperplasia) GERD (gastroesophageal reflux disease) Factor 5 Leiden mutation, heterozygous CPAP (continuous positive airway pressure) dependence Sleep apnea Home Medications Medication Instructions Recorded Last Taken Type amitriptyline 10 mg tablet 10 mg PO DAILY 09/17/22 Unk nown History cyclobenzaprine 10 mg tablet 10 mg PO TID PRN Muscle S pasm #15 09/17/22 Unknown Rx TABLETS finasteride 5 mg tablet 5 mg PO DAILY 09/17/22 Unkno wn History fluoxetine 10 mg capsule 10 mg PO DAILY 09/17/22 Unkn own History omeprazole 20 mg capsule,delayed 20 mg PO DAILY Unknown History release rosuvastatin 10 mg tablet 10 mg PO DAILY 09/17/22 Unkn own History ciprofloxacin HCl 250 mg tablet 250 mg PO Q12H 7 days #14 tabs 10/05/24 Unknown Rx oxycodone-acetaminophen 5 mg-325 1 tab PO Q6H PRN PRN Pain 3 days 10/05/24 Unknown Rx mg tablet #12 TABLETS Allergy/AdvReac Type Severity Reaction Status Date / Time No Known Allergies Allergy Verified 10/05/24 00:52 Family History Father Heart disease Hypertension Mother COPD (chronic obstructive pulmonary disease) Surgical History H/O excision of mass Social History household members: spouse housing: house Smoking Status: Former smoker alcohol intake: current details: drinks 5-6 shots of whisky a day substance use type: marijuana ROS ROS ED Constitutional Constitutional ED: Denies chills or fever(s) Eyes Eyes: Denies change in vision or diplopia ENT ENT ED: Denies rhinorrhea or sore throat Cardiovascular Cardiovascular: Denies chest pain or palpitations Respiratory/Chest Respiratory/Chest: Denies cough or dyspnea Gastrointestinal Gastrointestinal: Reports abdominal pain; Denies diarrhea, nausea or vomiting Genitourinary Genitourinary ED: Reports flank pain and hematuria; Denies difficulty urinating or dysuria Musculoskeletal Musculoskeletal: Reports back pain; Denies neck pain Integumentary Denies abscess or rash Neurologic Neurologic: Denies headache(s), paresthesias or weakness Psychiatric Psychiatric: Denies anxiety or suicidal thoughts EXAM Physical Exam Const Vital Signs: 10/05/24 00:50 10/05/24 02:52 Temperature 98 F Temperature Source Oral Pulse Rate 71 73 Respiratory Rate 18 Blood Pressure 160/80 H Blood Pressure Mean 106 Pulse Ox 100 96 Oxygen Delivery Method Room Air Room Air Positive well nourished and well developed General Appearance ED: well developed and NAD HEENT Reports moist mucous membranes normocephalic and atraumatic Eyes PERRL and EOMs intact bilaterally Neck full ROM and supple Resp normal respiratory effort and clear to auscultation bilaterally Cardio regular rate, regular rhythm and no murmurs GI non-tender and non-distended Auscultation: normoactive bowel sounds Palpation: soft Back/Spine no CVA tenderness General Back: other FROM Extremity normal to inspection General Extremety ED: Negative for edema, pulses abnormal or tenderness General Extremity: Negative for edema or pulses abnormal Neuro oriented x3, CN's II-XII intact bilaterally and no sensory deficits noted Sensorium / Orientation: awake and alert Motor Exam: strength 5/5 throughout Psych mental status grossly normal and thought process normal Skin no rashes or lesions noted and no wounds MDM MDM MDM Narrative Medical decision making narrative: Obtained labs and urinalysis, obtained a CT with and without contrast to evaluate right ureteral stent placement, for ureteral obstruction and possible stone, as well as contrast to evaluate renal perfusion. Discussed with the rv repair technician for timing of that scan. The labs are noted he has some JEOVANNY with an elevating creatinine, his urine appears to be infected, I reviewed the CT imaging and the results which I agree with, it is basically consistent with hydroureteronephrosis on the left which explains his pain, and given that his urine looks infected I suspect this is pyelonephritis and this is in context of him being on an antibiotic. There is no sign of an obstruction on this CT. Sent urine culture and treat empirically with IV Rocephin 1 g. With that and his JEOVANNY I discussed with the patient and family about discussing with urology. If they need to be transferred they prefer to go to [facility] where he was before as opposed to staying here. Therefore discussed with Dr. Deluca who is on-call for Dr. Price with urology at [facility], discussed the case with him. He advises n ot transferring or admitting the patient, discharging him changing the antibiotic which he agrees with, and is comfortable with Cipro, and given him some IV fluids here for the mild JEOVANNY and following up closely as an outpatient after the weekend. I was finally able to view some [facility] records, showing H&P from Dr. Price, but not able to see the procedure note for the cystoscopy and bilateral ureteroscopy. Apparently he had a CT on 09/10 at [facility] that showed that the ureters were nondiagnostic and not really visible so that combined with his hematuria it appears that is why they decided to do the scope. I discussed all this with the patient and his significant other they are in agreement and comfortable with that overall plan. We did discuss reasons to return to the ER including intractable pain, fevers/chills/feeling overall more ill, or hematuria with urinary retention. We did discuss a Holt catheter for the hematuria which he declined at this time saying that he can urinate okay. History & Record Review Additional record(s) reviewed:: Prior labs and Other (prior CT a/p 5-6 wks ago negative; [facility] records, see MDM) Lab Data Attestation: I reviewed the patient's lab results. Labs: Laboratory Results - last 24 hr 10/05/24 10/05/24 01:24 02:00 WBC 7.6 RBC 3.70 L Hgb 11.6 L Hct 34.2 L MCV 92.4 MCH 31.4 MCHC 33.9 RDW Std Deviation 42.0 RDW Coeff of Jessenia 12.4 Plt Count 112 L MPV 9.7 Immature Gran % (Auto) 0.400 Neut % (Auto) 71.5 H Lymph % (Auto) 13.9 L Page % (Auto) 11.0 H Eos % (Auto) 2.9 Baso % (Auto) 0.3 Absolute Neuts (auto) 5.5 Absolute Lymphs (auto) 1.06 Nucleated RBC % 0 Sodium 140 Potassium 3.9 Chloride 104 Carbon Dioxide 24.8 Anion Gap 11 BUN 19 Creatinine 1.75 H Estim Creat Clear Calc 44.22 L Est GFR (MDRD) Non-Af 42 L BUN/Creatinine Ratio 10.8 Glucose 132 H Calcium 9.1 Urine Color Straw Urine Clarity Sl. Cloudy Urine pH 6.5 Ur Specific [place] 1.010 Urine Protein 100 H Urine Glucose (UA) Normal Urine Ketones Negative Urine Occult Blood 250 H Urine Nitrite Negative Urine Bilirubin Negative Urine Urobilinogen Normal Ur Leukocyte Esterase 500 H Urine RBC 50-100 SEEN Urine WBC 5-10 SEEN Ur Squamous Epith Cells 0 SEEN Urine Bacteria RARE Urine Mucus 0 SEEN Radiography Diagnostic Testing: Clinical Impression(s) from Imaging Studies Abdomen/Pelvis CT 10/05/24 01:35 IMPRESSION: Right nephroureteral stent is in good position. Moderate left hydroureteronephrosis, possibly recent passage of a calculus versus an ascending urinary tract infection. No obstructing stone or drainable abscess formation. Mild diffuse thickening of the bladder, possibly cystitis. Minimal gas density in the lumen of the bladder, possibly recent instrum entation. Mild gastroparesis. Reading Location: [place] [id number] Management Discussion w/another healthcare provider: [employer] (urology [facility]) Discharge Plan Triage Chief Complaint: Flank Pain ED Provider: Brett Marcus Dx/Rx/DC Orders Clinical Impression: JEOVANNY (acute kidney injury), Acute pyelonephritis, Ureteral stent present, Hematuria Instructions: ED Pyelonephritis, Male (Adult) Prescriptions: New oxycodone-acetaminophen 5-325 mg tablet 1 tab PO Q6H PRN PRN (Reason: Pain) 3 Days Qty: 12 0RF ciprofloxacin HCl 250 mg tablet 250 mg PO Q12H 7 Days Qty: 14 0RF Continued fluoxetine 10 mg capsule 10 mg PO DAILY finasteride 5 mg tablet 5 mg PO DAILY amitriptyline 10 mg tablet 10 mg PO DAILY omeprazole 20 mg capsule,delayed release(DR/EC) 20 mg PO DAILY rosuvastatin 10 mg tablet 10 mg PO DAILY cyclobenzaprine 10 mg tablet 10 mg PO TID PRN (Reason: Muscle Spasm) Qty: 15 0RF Discontinued tramadol 50 mg tablet 50 mg PO Q6H PRN (Reason: pain) 2 Days Qty: 6 0RF ciprofloxacin HCl 500 mg tablet 500 mg PO BID Qty: 6 0RF Primary Care Provider: Jules Haynes Referrals: Yuval Price MD [Non-Staff] - As soon as possible Activity Restrictions/Additional Instructions: Discontinue the Ceftin you are taking, and you are going to be taking the ciprofloxacin newly prescribed instead. Print Language: Romansh Disposition Disposition: Home, Self Care
[2024-10-05 01:34] LABS: Hematocrit 34.2 % (40-54); Hemoglobin 11.6 g/dL (13.0-16.5); Immature Granulocytes Count 0.030 X10^3/uL (0.0-0.0); Mean Corp Hgb Conc 33.9 g/dL (32-36); Mean Corpuscular Volume 92.4 fL (80-94); Mean Platelet Vol. 9.7 fl (6.2-12.0); NRBC Flagged by Analyzer 0 % (0-5); Platelet Count 112 K/mm3 (150-450); RBC Distribution Width CV 12.4 % (11.6-14.6); RBC Distribution Width SD 42.0 fl (35.1-43.9); Red Blood Count 3.70 M/mm3 (4.6-6.2); White Blood Count 7.6 K/mm3 (4.4-11.0)
--- NOTE | 2024-10-05 01:35 | CT_ITS ---
PROCEDURE: CT ABD/PELVIS W/WO CONTRAST 10/05/2024 REASON FOR EXAM: LEFT FLANK PAIN, RECENT RIGHT URETERAL STENT TECHNIQUE: CT ABD/PELVIS W/WO CONTRAST Coronal and Sagittal reconstruction series were provided. CONTRAST: VOLUME: mL One or more dose reduction techniques were used (e.g., Automated exposure control, adjustment of the mA and/or kV according to patient size, use of iterative reconstruction technique. RADIATION DOSE SUMMARY: CTDlvol: 8.15 mGy DLP: 394 mGycm COMPARISON: CT SCAN ON 08/18/2024. FINDINGS: Right nephroureteral stent is in good position. Moderate left hydroureteronephrosis, possibly recent passage of a calculus versus an ascending urinary tract infection. No obstructing stone or drainable abscess formation. Mild diffuse thickening of the bladder, possibly cystitis. Minimal gas density in the lumen of the bladder, possibly recent instrumentation. Mild gastroparesis. The visualized lung bases are unremarkable. Normal unenhanced liver. Normal gallbladder and extrahepatic biliary system. Normal unenhanced spleen. Normal pancreas. Normal bilateral adrenal glands. Normal size of the right kidney. There is no right renal mass. There are no right renal calculi. There is no right hydronephrosis. Normal visualized right ureter. Normal size of the left kidney. There is no left renal mass. There are no left renal calculi. Normal small intestine. Normal colon. The appendix is visualized and appears normal. There is no demonstrated peritoneal fluid. Calcified atheromatous plaques of the abdominal aorta. Normal inferior vena cava. Normal retroperitoneum. There is no pelvic mass lesion or lymphadenopathy. There is no pelvic fluid. Normal abdominal wall. CT/CT Abd/Pelvis W/WO Contrast IMPRESSION: Right nephroureteral stent is in good position. Moderate left hydroureteronephrosis, possibly recent passage of a calculus vers us an ascending urinary tract infection. No obstructing stone or drainable abscess formation. Mild diffuse thickening of the bladder, possibly cystitis. Minimal gas density in the lumen of the bladder, possibly recent instrumentatio n. Mild gastroparesis. Reading Location: [place] [id number]
[2024-10-05 02:06] LABS: Mucous, Urine 0 SEEN /hpf (<or=2+); Squamous Epithelial Cells - UA 0 SEEN /hpf (0-5)
[2024-10-05 02:06] LABS: Anion Gap 11 (5-15); BUN 19 mg/dL (4-19); BUN/Creat Ratio 10.8 RATIO (10-20); Calcium,Total 9.1 mg/dL (7.6-11.0); Carbon Dioxide 24.8 mmol/L (21.0-32.0); Chloride 104 mmol/L (98-108); Estimated Creatinine Clearance 44.22 ml/min (50-250); Glucose 132 mg/dL (70-99); Potassium 3.9 mmol/L (3.3-5.1)
[2024-10-05 02:07] LABS: Color, Urine Straw (Yellow); Glucose, Dipstick Normal (Normal); Ketone-Dipstick Negative (Negative); Leukocyte Esterase-Dipstick 500 /ul (Negative); Nitrite-Dipstick Negative (Negative); Occult Blood-Urine 250 /ul (Negative); Protein-Dipstick 100 mg/dl (Negative); Specific Gravity, Urine 1.010 (1.002-1.030); Urine Bilirubin Dipstick Negative (Negative)
--- OUTSIDE RECORDS SUMMARY | 2024-10-05 02:15 | XMS RPT_ITS | CCD ---
Author Organization [facility] Care Team Providers Care Food Analyst Name Role Phone Jules Haynes DO Unavailable Jules Haynes DO Primary Care Provider Dr. Jules Haynes Primary Care Provider Dr. Carolina Denis Emergency Provider Dr. Sherron Crockett Admit Provider Dr. Sherron Crockett Attending Provider Dr. Sherron Crockett Other Provider Jules Haynes DO Unavailable Jules Haynes DO Primary Care Provider Dr. Clemencia Angel Attending Provider Unavailable Dr. Clemencia Angel Other Provider Unavailable Jules Haynes DO Unavailable Jules Haynes DO Primary Care Provider Jules Haynes DO Unavailable Jules Haynes DO Primary Care Provider JULES HAYNES Primary Care Unavailable VIRGINIA LYON Referring Unavailable Edinson Stinson MD Unavailable [phone] Jules Haynes DO Primary Care Provider Eddie DENTAL THERAPIST.Rosalina DING Unavailable Virginia Lyon APRN.CNP Unavailable Alicia River APRN.CNP Unavailable Dr. Jules Haynes DO Primary Care Provider [phone] Dr. Julian Sifuentes DO Emergency Provider Julian Sifuentes Attending Unavailable Haynes, Jules Primary Care Unavailable CLARISSE CEE Attending Unavailable HAYNES, JULES L Primary Care Unavailable HAYNES, JULES L Primary Care Unavailable SUSHANT COLMENARES Attending Unavailable HAYNES, JULES Olivo Primary Care Unavailable JORGE REDDY JR Attending Unavailable HAYNES, JULES Pallavi Primary Care Unavailable JORGE REDDY JR Referring Unavailable HAYNES, JULES L Attending Unavailable HAYNES, JULES L Primary Care Unavailable HAYNES, JULES L Primary Care Unavailable KENJI MARR Attending Unavailable SUSHANT COLMENARES Attending Unavailable HAYNES, JULES L Primary Care Unavailable CEE, CLARISSE Referring Unavailable HAYNES, JULES L Primary Care Unavailable CEE, CLARISSE Referring Unavailable HAYNES, JULES L Primary Care Unavailable CEE, CLARISSE Referring Unavailable HAYNES, JULES L Primary Care Unavailable HAYNES, JULES L Primary Care Unavailable JOAQUIN ELLISON Referring Unavailable CLEMENCIA PRICE Attending Unavailable HAYNES, JULES Pallavi Primary Care Unavailable CLEMENCIA PRICE Admitting Unavailable CLEMENCIA PRICE Attending Unavailable HAYNES, JULES L Primary Care Unavailable Medications Current Medications Medication Drug Class(es) Dates Sig (Normalized) Sig (Original) amitriptyline hydrochloride 10 mg oral tablet (20 sources) Tricyclic Antidepressant Start: 09-17-2022 take 1 tablet by mouth once daily Amitriptyline 10 mg tablet Active 10 mg PO DAILY September 17, 2022 12:00am Start: [...] tablets by mo uth daily at bedtime. amoxicillin 875 mg / clavulanate 125 mg oral tablet (3 sources) Penicillin-class Antibacterial Start: 08-05-19 End: 08-15-19 take 1 tablet by mouth twice daily amoxicillin-clavulan ate potassium (AUGMENTIN) 875-125 mg per tablet Indications: Dog bite of left hand, initial encounter Take 1 tablet by mouth two times a day for 10 days. 20 tablet 08/04/2024 08/14/2024 Active aspirin 81 mg oral tablet (2 sources) Platelet Aggregation Inhibitor, Nonsteroidal Anti-inflammatory Drug Aspirin 81 mg tab Take 81 mg by mouth. Active ciprofloxacin 500 mg oral tablet (1 source) Quinolone Antimicrobial Start: 08-19-19 take 1 tablet by mouth twice daily Ciprofloxacin Hcl 500 mg tablet Active 500 mg PO TWICE A DAY 6 August 18, 2024 12:00am clonazePAM 1 mg oral tablet (20 sources) Benzodiazepine Start: 02-19-20 End: 03-02-19 take 1 tablet by mouth once daily at bedtime clonazePAM (KLONOPIN) 1 mg tablet Indications: RBD (REM behavioral disorder) Take 1 tablet by mouth daily at bedtime for 180 days. Patient should start on September 03, 2024. 30 tablet 5 09/03/2024 03/02/2025 Active Start: 08-30-2023 End: 02-08-2024 clonazePAM (KLONOPIN) 1 [...] bedtime. 30 tablet 2 06/23/2023 08/30/2023 Discontinued clotrimazole 10 mg/ml topical cream (4 sources) [...] daily. cyclobenzaprine hydrochloride 10 mg oral tablet (2 sources) Muscle Relaxant Start: take 1 tablet by mouth three times daily as needed for muscle spasms Cyclobenzaprine 10 mg tablet Active 10 mg PO THREE TIMES A DAY as needed for Muscle Spasm 15 0 September 17, 2022 12:00am dicyclomine hydrochloride 10 mg oral capsule (20 sources) Anticholinergic Start: End: 025 take 1 capsule by mouth at bedtime dicyclomine (BENTYL) 10 mg capsule Indications: Irritable bowel syndrome with constipation Take 1 capsule by mouth before meals and at bedtime. For bowels/irritable bowels 90 capsule 2 08/19/2024 Active Start: 10-15-2019 End: 03-04-2020 take 1 tablet by mouth three times daily dicyclomine (BENTYL) 20 mg tablet Indications: Functional bowel disorder Take 1 tablet by mouth three times daily. 90 tablet 2 10/15/2019 03/04/2020 Discontinued Comment on above: Take 1 capsule by mo [facility] before meals and at bedtime. For bowels/irritable bowels finasteride 5 mg oral tablet (20 sources) 5-alpha Reductase Inhibitor Start: 09-18-19 End: 08-22-19 take 1 tablet by mouth once daily finasteride (PROSCAR) 5 mg tablet Indications: Urinary frequency Take 1 tablet by mouth once daily. 90 tablet 3 08/21/2024 Active Start: 03-24-2021 End: 11-26-2021 take 1 [...] on above: Take 1 tablet by aki once daily. FLUoxetine 40 mg oral capsule (20 sources) Serotonin Reuptake Inhibitor Start: 05-13-2024 End: 11-19-2024 take 1 capsule by mouth once daily FLUoxetine (PROZAC) 40 mg capsule Take 1 capsule by mouth once daily. 90 capsule 08/21/2024 11/19/2024 Active Start: 12-26-2022 End: 02-28-2024 take 1 capsule by mouth once daily FLUoxetine (PROZAC) 40 mg capsule Take 1 capsule by mouth once daily. 90 capsule 11/30/2023 Active Start: 09-17-2022 take 1 capsule by mo [facility] once daily Fluoxetine 10 mg capsule Active 10 mg PO DAILY September 17, 2022 12:00am Start: [...] on above: Take 1 capsule by mo uth once daily. TAKE ONE CAPSULE BY MOUTH EVERY DAY LORazepam 0.5 mg oral tablet (2 sources) Benzodiazepine Start: 11-27-19 End: 12-27-19 take 1 tablet by mouth once daily as needed LORazepam (ATIVAN) 0.5 mg Indications: Anxiety with depression Take 1 tablet by mouth once daily as needed for up to 30 days. 30 tablet 0 11/26/2021 12/26/2021 Active Comment on above: Take 1 tablet by aki once daily as needed for up to 30 days. melatonin 5 mg chewable tablet (20 sources) Start: 01-08-20 End: 08-15-19 take 1 tablet by mouth once daily at bedtime melatonin 5 mg chew Indications: RBD (REM behavioral disorder) , Shift work sleep disorder Take 1 tablet by mouth daily at bedtime. 90 tablet 3 08/19/2024 08/14/2025 Active omeprazole 20 mg delayed release oral capsule (20 sources) Proton Pump Inhibitor Start: 06-18-19 End: 08-07-19 take 1 capsule by mouth once daily Omeprazole 20 mg capsule,delayed release(DR/EC) Active 20 mg PO DAILY September 17, 2022 12:00am Comment on above: Take [address] [facility] once daily. 30 min before breakfast phenylephrine hydrochloride 25 mg/ml ophthalmic solution (2 sources) alpha-1 Adrenergic Agonist Start: 08-15-19 End: 08-16-19 PHENYLephrine 2.5 % 1 Drop (AK-DILATE, LUCY-SYNEPHRINE) proparacaine hydrochloride 5 mg/ml ophthalmic solution (2 sources) Local Anesthetic Start: 08-15-19 End: 08-16-19 proparacaine 0.5 % 1 Drop (ALCAINE) rosuvastatin calcium 20 mg oral tablet (20 sources) HMG-CoA Reductase Inhibitor Start: 09-11-19 take 1 tablet by mouth once daily rosuvastatin (CRESTOR) 20 mg tablet Take 1 tablet by mouth once daily. 90 tablet 3 09/10/2024 Active Start: 06-29-2023 take 1 tablet by aki once daily in the evening rosuvastatin (CRESTOR) 20 mg tablet Take 1 tablet by mouth once daily. 90 tablet 3 05/21/2024 1:27 PM EDT 06/29/2023 Active Start: 10-27-2021 End: 06-29-2023 take 1 tablet by mouth once daily Rosuvastatin 10 mg tablet Active 10 mg PO DAILY September 17, 2022 12:00am Start: 02-12-2019 End: 10-20-2021 take 1 tablet by mouth once daily at bedtime rosuvastatin (CRESTOR) 10 mg tablet Indications: Hypercholesteremia Take 1 tablet by mouth daily at bedtime. 90 tablet 3 02/12/2019 10/20/2021 Discontinued Comment on above: Take 1 tablet by aki th daily at bedtime. take one tablet by m outh every day at bedtime traMADol hydrochloride 50 mg oral tablet (2 sources) Opioid Agonist Start: 09-18-19 take 1 tablet by mouth every six hours as needed for pain Tramadol 50 mg tablet Active 50 mg PO EVERY 6 HOURS as needed for pain 6 2 0 September 17, 2022 3:47am Closed fracture of nasal bone Fracture of nasal bones, initial encounter for closed fracture tropicamide 10 mg/ml ophthalmic solution (2 sources) Anticholinergic Start: 08-15-19 End: 08-16-19 tropicamide 1 % 1 Drop (MYDRIACYL) Completed/Discontinued Medications Medication Drug Class(es) Dates Sig (Normalized) Sig (Original) bisacodyl 5 mg delayed release oral tablet [...] Prep Kit cefdinir 300 mg oral capsule (3 sources) Cephalosporin Antibacterial Start: 09-28-19 End: 09-18-19 take 1 capsule by mouth every twelve hours Cefdinir 300 mg capsule Discontinued 300 mg PO Q12H 10 0 September 27, 2021 12:00am September 17, 2022 1:26am cholecalciferol 0.125 mg oral capsule (4 sources) Vitamin D Start: 03-05-19 End: 10-21-19 take 1 capsule by mouth once daily Cholecalciferol, Vitamin D3, 125 mcg (5,000 unit) cap Indications: Vitamin D deficiency Take 1 capsule by mouth once daily. 90 capsule 3 03/05/2020 10/20/2021 Discontinued Comment on above: Take [address] [facility] once daily. Gatorade Sports Drink (5 sources) Start: 06-04-19 End: 10-21-19 Gatorade Sports Drink Indications: Tenesmus Use as directed for [...] 0.125 mg sublingual tablet (4 sources) Start: 03-24-19 End: 10-21-19 take 1 tablet under the tongue once [...] as needed. Max 12 tabs per day. ibuprofen 800 mg oral tablet (11 sources) Nonsteroidal Anti-inflammatory Drug Start: 04-09-19 End: 08-20-19 take 1 tablet by mouth every eight hours as needed ibuprofen (MOTRIN) 800 mg tablet Take 1 tablet by mouth three times a day as needed for pain or fever (specify temp.). 100 tablet 1 04/09/2024 08/19/2024 Discontinued iv contrast (will be provided with radiology test) (2 sources) Start: 08-21-19 End: 08-22-19 iv contrast (will be provided with radiology test) CT Urogram WO/W Inject, intravenously, once for 1 dose.No IV access, insert saline lock prior to the beginning of sedation, infusion, injection of imaging exam. Discontinue saline lock post exam. If Pt. has a central line or IVAD, may access for administration according to line specific nursing protocol. Once exam is complete flush line and de-access according to line specific nursing protocol in the CT contrast administration guidelines link. 1 each 08/20/2024 08/21/2024 Start: 08-20-2024 End: 08-21-2024 iv contrast (will be provide d with radiology test) CT Urogram WO/W Inject, intravenously, once for 1 dose.No IV access, insert saline lock prior to the beginning of sedation, infusion, injection of imaging exam. Discontinue saline lock post exam. If Pt. has a central line or IVAD, may access for administration according to line specific nursing protocol. Once exam is complete flush line and de-access according to line specific nursing protocol in the CT contrast administration guidelines link. 1 each 08/20/2024 08/21/2024 Active lansoprazole 30 mg delayed release oral capsule (5 sources) Proton Pump Inhibitor Start: 06-19-2017 End: 10-20-2021 take 1 capsule by mouth once daily lansoprazole (PREVACID) 30 mg capsule Indications: GERD without esophagitis Take 1 capsule by mouth once daily. 90 capsule 3 06/19/2017 10/20/2021 Discontinued Comment on above: Take [address] [facility] once daily. levothyroxine sodium 0.05 mg oral tablet (5 sources) l-Thyroxine Start: 11-30-2020 End: 10-21-2021 take 1 tablet by mouth once daily for thyroid dysfunction levothyroxine (LEVOXYL) 50 mcg tablet Indications: Subclinical hypothyroidism Take 1 tablet by mouth once daily. Take on empty stomach. For Thyroid 0 11/30/2020 10/21/2021 Discontinued Comment on above: Take 1 tablet by [facility] once daily. Take on empty stomach. For Thyroid meclizine hydrochloride 25 mg oral tablet (7 sources) Antiemetic Start: 12-19-2022 End: 03-21-2023 take 1 tablet by mouth three times [...] above: Take 1 tablet by aki th three times a day. perflutren lipid microspheres 1.3 mL in NaCl (PF) 0.9% 10 mL injection (DEFINITY) (1 source) Start: 02-28-2020 End: 05-29-2021 perflutren lipid microspheres 1.3 mL in NaCl (PF) 0.9% 10 mL injection (DEFINITY) polyethylene glycol 3350 38126 mg powder for oral solution (5 sources) Osmotic Laxative Start: 06-03-2020 End: 10-20-2021 polyethylene glycol 3350 (MIRALAX, GLYCOLAX) 17 gram/dose powder Indications: Tenesmus Use as directed for Miralax / Gatorade Bowel Prep Kit 238 g 0 06/03/2020 10/20/2021 Discontinued Start: 10-15-2019 End: 03-04-2020 polyethylene glycol 3350 (OK RALAX, GLYCOLAX) 17 gram/dose powder Indications: Functional bowel disorder Use as directed for Miralax / Gatorade Bowel Prep Kit 238 g 10/15/2019 03/04/2020 Discontinued Comment on above: Use as directed for Miralax / Gatorade Bowel Prep Kit prazosin 1 mg oral capsule (11 sources) alpha-Adrenergic Faith Start: take 1 capsule by mouth at bedtime, [...] then increase to 2mg daily at bedtime. 1000 ml sodium chloride 9 mg/ml injection (2 sources) Start: 5 End: 0.9 % sodium chloride (NACL 0.9%) infusion Indications: Gross hematuria Administer at rate defined per CT contrast administration specifications. To be provided with radiology test. 150 mL 08/20/2024 08/20/2024 Start: 02-28-2020 End: 05-29-2021 sodium chloride 0.9 % (flush ) 10 mL (BD POSIFLUSH) Problems Active Problems Problem Classification Problem Date Documented Da te Episodic/Chronic Abdominal pain (9 sources) Abdominal pain; Translations: [Unspecified abdominal pain] Onset: 5 09-07-2022 Episodic Alcohol-related disorders (1 source) Alcohol abuse; Translations: [Alcohol abuse, uncomplicated] 2023 Chronic Alcohol-related disorders (2 sources) Alcohol intoxication; Translations: [Alcohol use, unspecified with [...] vision; Translations: [Unspecified visual disturbance] 07-31-2023 Episodic Calculus of urinary tract (2 sources) History of calculus of kidney; Translations: [Personal history of urinary calculi] Onset: 5 08-20-2024 Episodic Cataract (1 source) Bilateral cortical age-related cataract eyes; Translations: [Cortical age-related cataract, bilateral] 08-15-2023 Chronic Conditions associated with dizziness or vertigo (4 sources) Labyrinthine disorder; Translations: [Labyrinthine dysfunction, unspecified ear] 09-17-2022 Episodic Disorders of lipid metabolism (20 sources) Hypercholesterolemia; Translations: [Pure hypercholesterolemia, unspecified] Onset: 4 03-29-2013 Chronic E Codes: Natural/environment (1 source) Bitten by dog, initial encounter; Translations: [Dog bite of left hand, initial encounter] Onset: 5 Episodic Esophageal disorders (20 sources) Gastroesophageal reflux disease without esophagitis; Translations: [Gastro-esophageal reflux disease without esophagitis] Onset: 8 06-19-2017 Chronic Genitourinary symptoms and ill-defined conditions (20 sources) Increased frequency of urination; Translations: [Frequency of micturition] Onset: 2 03-24-2021 Episodic Hyperplasia of prostate (4 sources) Weak urinary stream due to benign prostatic hypertrophy; Translations: [Benign prostatic hyperplasia with lower urinary tract symptoms] Onset: 5 08-20-2024 Chronic Immunizations and screening for infectious disease (1 source) Needs influenza immunization; Translations: [Encounter for immunization] 03-25-2024 Episodic Miscellaneous mental health disorders (20 sources) Dream anxiety disorder; 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 Mood disorders (20 sources) Depressive disorder; Translations: [Depression] Onset: 4 03-29-2013 Chronic Mycoses (2 sources) Tinea corporis; Translations: [Tinea corporis] Episodic Nausea and vomiting (5 sources) Nausea and vomiting; Translations: [Nausea with [...] arteries] 05-22-2023 Chronic Open wounds of extremities (9 sources) Laceration of left forearm; Translations: [Laceration without foreign body of left forearm, initial encounter] Onset: 5 Episodic Open wounds of head; neck; and trunk (2 sources) Laceration of nose; Translations: [Laceration without foreign [...] source) Taking high risk medication; Translations: [Other penitentiary (current) drug therapy] 01-08-2024 Episodic Other circulatory [...] 3 12-15-2022 Chronic Other nervous system disorders (4 sources) Circadian rhythm sleep disorder of shift work type; Translations: [Circadian rhythm sleep disorder, shift work type] 01-08-2024 Chronic Other nervous system disorders (19 sources) Chronic low back pain; Translations: [Other chronic pain] Onset: 6 09-08-2015 Chronic Other nutritional; endocrine; and metabolic disorders (20 sources) Obese class I; Translations: [Obesity, unspecified] Onset: 8 06-19-2017 Chronic Other screening for suspected conditions (not mental disorders or infectious disease) (3 sources) Patient encounter status; Translations: [Encounter for screening for other disorder] Onset: 5 08-20-2024 Episodic Other skin disorders (2 sources) Night sweats; Translations: [Generalized hyperhidrosis] 09-07-2022 Episodic Other upper respiratory disease (1 source) Chronic rhinitis; Translations: [Chronic rhinitis] 11-01-2022 Chronic Other upper respiratory disease (1 source) Deviated nasal septum; Translations: [Deviated nasal septum] 11-01-2022 Episodic Other upper respiratory infections (4 sources) Sinusitis; Translations: [Chronic sinusitis, unspecified] 11-30-2015 [...] Onset: 5 06-23-2023 Chronic Residual codes; unclassified (19 sources) Periodic leg movements of sleep ; [...] Translations: [Other specified health status] 12-26-2022 Episodic Skin and subcutaneous tissue infections (7 sources) Cellulitis and abscess of lower limb; Translations: [Cellulitis of left lower limb] Episodic Skull and face fractures (3 sources) Closed fracture of nasal bones; Translations: [Fracture of nasal bones, initial encounter for closed fracture] 09-17-2022 Episodic Substance-related disorders (3 sources) Marijuana user; Translations: [Cannabis use, unspecified, uncomplicated] 12-26-2022 Episodic Superficial injury; contusion (2 sources) Contusion of back; Translations: [Contusion of unspecified back wall of thorax, initial encounter] 09-17-2022 Episodic Thyroid disorders (20 sources) Subclinical hypothyroidism; Translations: [Other specified hypothyroidism] Onset: 11-25-2020 Chronic Unclassified (1 source) APPOINTMENT CANCELLED 01-09-2023 Unclassified (1 source) NO SHOW 09-19-2023 Past or Other Problems Problem Classification Problem Date Documented Da te Episodic/Chronic Malaise and fatigue (20 sources) Fatigue; Translations: [Other fatigue] Onset: 06-20-2018 03-24-2021 Episodic Other aftercare (1 source) Other sales trainer (current) drug therapy; Translations: [High risk medication [...] symptoms and signs] Onset: 12-15-2022 12-15-2022 Episodic Spondylosis; intervertebral disc disorders; other back problems (20 sources) Chronic low back pain; Translations: [Lumbago with sciatica, left side] Onset: 09-08-2015 09-08-2015 Episodic Results Test Name Value Interpretation Reference Range Facility [id number] 10-01-2024 [id number] HNO ID: [id number] Author: TAD IZQUIERDO RN Service: ? Author Type: Registered Nurse Type: [id number] Filed: 10/01/2024 11:04 Note Text: How long does it take to fully recover from a cystoscopy? Most people recover within a day or two from a cystoscopy. It may take longer depending on whether you had additional procedures at the same time (like a biopsy). Ask your provider what to expect. You may have belly pain, blood-tinged pee or pain and/or burning when peeing for the first day or two after the procedure. You might also feel like you need to pee often and urgently. To ease these symptoms, you can: Apply a warm, damp washcloth over the urethral opening or relax in a warm bath. Drink several glasses of water every day to flush out your bladder. Take an [id number] (OTC) pain reliever, such as nonsteroidal anti-inflammatory drugs (NSAIDs). What are the potential risks or complications of a cystoscopy? A cystoscopy is a relatively low-risk procedure. Potential complications include: Infection (UTI). Bladder spasms. These can cause painful cramps and leaking pee. Damage to your bladder. Damage to your urethra, like scarring or narrowing. Results and Follow-Up: What type of results do you get after cystoscopy? Your urologist will make notes about anything they notice during the procedure. This includes blockages, narrowing of your urethra, bladder stones, abnormal tissue or growths. They?ll also note if everything looks normal. They might talk to you about the results soon after the procedure or schedule a follow-up appointment to talk about them. If your provider took samples of tissue for biopsy, a lab will look at them under a microscope for cancerous cells. When should I call my healthcare provider? Most post-procedure problems like painful urination and blood-tinged pee get better within a day or two. Call your healthcare provider if problems last longer or you experience: Severe pain when you pee. Significant amounts of blood or blood clots in your pee. Painfully full bladder and inability to pee. Signs of infection (fever, pelvic pain, strong-smelling or cloudy pee). A note from [facility] Symptoms like pain, blood in your pee or an inability to control when you pee can make you feel anxious for answers about the cause. Cystoscopy is a way for your provider to start getting those answers. It?s a quick procedure with minimal risks and a short recovery time. Don?t hesitate to ask your provider about any concerns you have before or after the procedure. They can help you understand what to expect and make sense of the results. INFORMATION OBTAINED FROM [email or web address] [facility] ANES POSTPROC EVALon 025 ANES POSTPROC EVAL HNO ID: [id number] Author: SHARMIN CONDE DO Service: Anesthesiology Author Type: Anesthesiologist Type: Anesthesia Postprocedure Evaluation Filed: 10/01/2024 11:24 Note Text: POST ANESTHESIA EVALUATION NOTE : 1960 Procedure Summary Date: 10/01/24 Room / Location: [facility] OR 07 / OR Anesthesia Start: 935 Anesthesia Stop: 1017 Procedures: CYSTOSCOPY (Abdomen) CYSTOURETHROSCOPY BILATERAL W/URETEROSCOPY AND URETERAL STENT PLACEMENT Diagnosis: Gross hematuria (Gross hematuria [R31.0]) Surgeons: Clemencia Price MD Responsible Provider: Sharmin Conde DO Anesthesia Type: general ASA Status: 2 Anesthesia Type: general Airway Type: LMA Last Vitals Vitals Value Taken Time BP 193/81 10/01/24 11:16 Temp 36.8 ?C (98.3 ?F) 10/01/24 10:55 Pulse 62 10/01/24 11:19 Resp 16 10/01/24 11:00 SpO2 99 % 10/01/24 11:19 Vitals shown include unfiled device data. Post Anesthesia Patient Status Patient Evaluation: PACU. PACU/ICU Patient Condition: stable. Anticipated Disposition: phase 2 then home. Neurological Status: aware and responsive. Pulmonary Status: breathing comfortably on room air Airway Control: returned to baseline unsupported. Cardiovascular Status: stable. Pain Management: clinically adequate - multimodal analgesia pain management approach Postoperative Hydration: acceptable. Intraoperative Events: no significant anesthesia events Post Operative Nausea/Vomiting Status: no significant post operative nausea or vomiting Recommendation: continue current plan of care. Anesthesia Observations No Documentation SIGNATURE: Sharmin Conde DO PATIENT NAME: Kacey Bentley DATE: October 01, 2024 TIME: 11:24 AM CSN: [id number] [facility] ANES PRE-OPon 10-01-2024 ANES PRE-OP HNO ID: [id number] Author: SHARMIN CONDE DO Service: Anesthesiology Author Type: Anesthesiologist Type: Anesthesia Preprocedure Evaluation Filed: 10/01/2024 08:02 Note Text: ANESTHESIOLOGY DAY OF SURGERY NOTE : 1960 Procedure Information Date/Time: 10/01/24 0840 Procedures: CYSTOSCOPY (Abdomen) CYSTOURETHROSCOPY W/URETEROSCOPY AND/OR PYELOSCOPY DIAG Location: OR / OR Surgeons: Clemencia Price MD Estimated body mass index is 26.24 kg/m? as calculated from the following: Height as of this encounter: 181.6 cm (5' 11.5"). Weight as of this encounter: 86.5 kg (190 lb 12.8 oz). Most recent hematocrit and potassium results: Hematocrit 40.8 09/16/2024 Potassium 4.6 09/16/2024 Hemoglobin (g/dL) Date Value 09/16/2024 13.4 03/24/2021 14.7 Hematocrit (%) Date Value 09/16/2024 40.8 03/24/2021 42.3 WBC (k/uL) Date Value 09/16/2024 5.76 03/24/2021 5.94 Platelet Count (k/uL) Date Value 09/16/2024 158 03/24/2021 188 CMP: Glucose 159 09/16/2024 BUN 12 09/16/2024 Creatinine 1.05 09/16/2024 Sodium 136 09/16/2024 Potassium 4.6 09/16/2024 Chloride 101 09/16/2024 CO2 25 09/16/2024 Protein, Total 6.5 09/16/2024 Albumin 4.3 09/16/2024 Calcium 9.3 09/16/2024 Alkaline Phosphatase 53 09/16/2024 Bilirubin, Total 0.6 09/16/2024 AST 19 09/16/2024 ALT 14 09/16/2024 64 yo male with HX: anxiety, depression, PTSD, lung nodule, AAA, thyroid disease, BOBBY-noncompliant with cpap, BPH, IBS, HLD, Factor 5 Leiden mutation-heterozygous CAROTIDS 12/2022: 20-39% bilat SPECT 02/2020 CONCLUSIONS: 1. SPECT Perfusion Study: Normal. 2. There is no scintigraphic evidence for inducible ischemia. 3. No evidence of scarred myocardium. 4. Left ventricle is normal in size. The left ventricle systolic function is normal. 5. Right ventricle is normal in size. 6. This is a low risk scan. LVEF % 69 Echo 02/2020 CONCLUSIONS: - Exam indication: Chest Pain - The left ventricle is small. Left ventricular systolic function is normal. EF = 61 ? 5% (2D biplane) Normal left ventricular diastolic function. - The right ventricle is normal in size. Right ventricular systolic function is normal. - There are no significant valvular abnormalities. - The patient has not had a prior CC echocardiographic exam for comparison. Relevant Problems ANESTHESIA (+) BOBBY (obstructive sleep apnea) ENDO (+) Subclinical hypothyroidism GI (+) GERD without esophagitis NEURO-PSYCH (+) Personal history of colonic polyps PULMONARY (+) BOBBY (obstructive sleep apnea) Other (+) Primary osteoarthritis of right knee Dyslipidemia PRIMARY Sleep apnea X2 STUDIES, SLEEP APNEA, CPAP NON COMPLIANT 2004 OR LONGER Anxiety state PRIMARY Insomnia PRIMARY IBS (irritable bowel syndrome) Thyroid disease HYPERTHYROID, NO MEDS PRIMARY MANAGES Abdominal aortic aneurysm [facility] AND DR IBARRA [facility] Lung nodule MONITORED BY PRIMARY AND [facility] [place] [place] Patient consumes caffeinated coffee DRINKS MUSHROOM COFFEE DAILY Enlarged prostate MILD, DR PRICE Hematuria DR PRICE PTSD (post-traumatic stress disorder) Surgical History Current as of 10/01/24 075 CARPAL TUNNEL PAST SURGICAL HISTORY OF COLONOSCOPY PAST SURGICAL HISTORY OF PROCEDURE RM-COLONSCOPY W/BX COLONOSCOPY GEN ANES EGD Substance History Current as of 10/01/24 0754 Smoking Status: Former - 43.8 pack years Quit Smokin02/20/05 Passive Exposure: Past Smokeless Tobacco Status: Never Alcohol use: Not Currently Comments: Quit 04/29/2024 Drug use: Marijuana; Times per week: 7 Comments: uses daily Diagnosis: Gross hematuria [R31.0] Pre-op diagnosis: Gross hematuria [R31.0] Location: MR OR 07 / OR Surgeons: Clemencia Price MD I - PHYSICAL EVALUATION AIRWAY Patient intubated: No. Tracheostomy tube not present Mallampati: I. TM distance: >3 FB. Neck ROM: full ROM without neurological symptoms. Mouth opening: adequate. Short neck: no. Thick neck: no Torres present: yes Lip Bite Test: I Microretrognathia/Micronag thia/Recessed Chin: No DENTAL Dental findings: teeth intact. Additional exam findings: yes. CARDIOVASCULAR Rhythm: regular PULMONARY Breath sounds clear to auscultation. II - ANESTHESIA PLAN ASA Score: 2 Anesthetic Plan: general Airway type: LMA The patient is a current smoker. NPO Status: adequate Anesthetic plan additional comments: Vapes "weed". Beta Faith Monitoring Plan Monitoring plan: standard ASA. Post Procedure Analgesic Plan Postoperative analgesic plan: multimodal analgesia. Informed Consent Anesthetic risks, benefits, alternatives, personnel and consent discussed: yes. Patient / Responsible Democrat agrees to proceed: yes Patient / Surrogate agrees to blood products: Yes Discussed the possibility of lip / dental damage: yes Vitals Value Taken Time BP 162/81 10/01/24 07:26 Pulse 55 10/01/24 (more content not included)... Normal [facility] HISTORY PHYSICALon HISTORY PHYSICAL HNO ID: [id number] Author: CLEMENCIA PRICE MD Service: Urology Author Type: Physician Type: H&P Filed: 10/01/2024 09:20 Note Text: The patient on 1 day had a severe attack of left lower quadrant pain as well as some gross hematuria that 1 day. The patient does have a history of renal stones and this was not typical of that prior event. The patient had the CAT scan noted below and there was concerns of distal ureteral changes both on the left and right. The patient has not had any further hematuria cytology was negative. The patient now presents for cystoscopy and bilateral ureteroscopy of the lower ureters if any other lesions are identified then upper renal investigation will be required. CTU--09/10/2024 8:46 AM - Radiology, Oru In Impression IMPRESSION: 1. No urinary tract calculi or renal solid masses identified. 2. Nondiagnostic evaluation of portions of the mid to distal right ureter and long segment of the mid to distal left ureter due to nonopacification during this study. Otherwise, no CT evidence of urothelial lesion. 3. Mildly enlarged prostate. Correlate with PSA levels. 4. 3 cm abdominal aortic aneurysm. Review of Systems The remainder of the ROS was reviewed and is negative. LAB Creatinine Date Value Ref Range Status 09/04/2024 1.27 (H) 0.73 - 1.22 mg/dL Final PSA (ng/mL) Date Value 07/31/2019 0.20 05/13/2019 0.16 PSA Screening (ng/mL) Date Value 10/20/2021 0.26 05/18/2018 0.10 12/06/2016 0.10 03/26/2013 0.28 GLUCOSE UA (POCT) (mg/dL) Date Value 09/16/2024 Negative BILIRUBIN UA (POCT) (no units) Date Value 09/16/2024 Negative KETONE UA (POCT) (mg/dL) Date Value 09/16/2024 Negative SPECIFIC GRAVITY UA (POCT) (no units) Date Value 09/16/2024 1.015 HEMOGLOBIN/BLOOD UA (POCT) (no units) Date Value 09/16/2024 Negative PH UA (POCT) (no units) Date Value 09/16/2024 7.5 PROTEIN UA (POCT) (mg/dL) Date Value 09/16/2024 Negative UROBILINOGEN UA (POCT) (E.U./dL) Date Value 09/16/2024 0.2 NITRITE UA (POCT) (no units) Date Value 09/16/2024 Negative LEUKOCYTES UA (POCT) (no units) Date Value 09/16/2024 Negative COLOR UA (POCT) (no units) Date Value 09/16/2024 Yellow CLARITY UA (POCT) (no units) Date Value 09/16/2024 Clear ] MEDICATIONS CURRENT MEDICATIONS Aspirin 81 mg tab Take 81 mg by mouth. rosuvastatin (CRESTOR) 20 mg tablet Take 1 tablet by mouth once daily. FLUoxetine (PROZAC) 40 mg capsule Take 1 capsule by mouth once daily. finasteride (PROSCAR) 5 mg tablet Take 1 tablet by mouth once daily. melatonin 5 mg chew Take 1 tablet by mouth daily at bedtime. dicyclomine (BENTYL) 10 mg capsule Take 1 capsule by mouth before meals and at bedtime. For bowels/irritable bowels clonazePAM (KLONOPIN) 1 mg tablet Take 1 tablet by mouth daily at bedtime for 180 days. Patient should start on September 03, 2024. 0 HISTORIES PAST MEDICAL HISTORY PAST MEDICAL HISTORY Diagnosis Date Arthritis Colon polyps 03/26/2010 Dr. Salty Rodrigues, by c scope Depression Dyslipidemia Hyperlipemia BOBBY (obstructive sleep apnea) CPAP Personal history of colonic polyps 03/10/2016 tubular adenoma Sleep apnea PAST SURGICAL HISTORY PAST SURGICAL HISTORY Procedure Laterality Date CARPAL TUNNEL 2012 both wrists COLONOSCOPY 2010 COLONOSCOPY GEN ANES 07/09/2020 Repeat in 5 years EGD 07/10/2020 PAST SURGICAL HISTORY OF Bone tumor age 14 PAST SURGICAL HISTORY OF deviated septum repair PROCEDURE RM-COLONSCOPY W/BX 11/2017 FAMILY HISTORY FAMILY HISTORY Problem Relation Age of Onset Emphysema Mother 62 Heart Attack Father No Known Problems Sister No Known Problems Sister Heart Attack Sister No Known Problems Sister No Known Problems Sister Colon Cancer Brother 58 Heart Attack Brother No Known Problems Brother No Known Problems Maternal Grandmother other (black lung) Maternal Grandfather Heart Paternal Grandmother Heart Paternal Grandfather No Ocular Disease No Family History SOCIAL HISTORY SOCIAL HISTORY Exam Lungs-clear bilaterally Heart-regular rate Abdomen-soft nontender 1. Gross hematuria-based on the CAT scan findings and gross hematuria the plan is cystoscopy and bilateral distal to mid ureteroscopy. [facility] OPERATIVE NOon 10-01-2024 OPERATIVE NO HNO ID: [id number] Author: CLEMENCIA PRICE MD Service: Urology Author Type: Physician Type: Operative Report Filed: 10/01/2024 10:11 Note Text: OPERATIVE/PROCEDURE REPORT LOG ID: [id number] SURGERY/PROCEDURE DATE: 10/01/2024 INCISION/PROCEDURE START TIME: 9:52 AM INCISION CLOSE/PROCEDURE END TIME: 10:04 AM SURGEON(S)/PROCEDURALIST(S ) AND USPS LETTER CARRIER(S): Surgeons and Role: * Clemencia Price MD - Primary No Additional Staff SURGERY/PROCEDURE(S): Cystoscopy bilateral ureteroscopy and right stent placement ANESTHESIA: General SURGERY/PROCEDURE DETAILS: The patient was taken Apsey given anesthetic in a supine position with SCDs on. The patient then was placed in dorsolithotomy prepped and draped. The patient had insertion of the cystoscope that revealed a normal urethra some mild BPH and a normal bladder with no exophytic lesions masses growths. The patient then had a Glidewire placed up the left distal ureter with the aid of a dual-lumen catheter a second wire was placed the ureteroscope was advanced there was some resistance in the distal ureter at approximately 3 to 4 cm in requiring some persuasion to get past the area and then beyond that the ureter was completely normal and on careful withdrawal from the high proximal ureter down to the ureteral orifice there was no obvious lesions or masses noted. Both Glidewire's were removed on the right side a Glidewire was placed up the right ureter with the aid of a dual-lumen and a second wire was placed. The ureteroscope was then advanced and similar to the opposite side there was some resistance however this was more dramatic and was not able to be easily bypassed and there was some shearing of the ureter to bypass this area hence he will require stent placement. However ureteroscopy into the high proximal ureter there were no exophytic lesions masses or growths. For the entire ureter. The patient due to the mild narrow narrowing and ureteral shear I placed a stent which will leave in place for 2 weeks. The patient overall seem to tolerate the procedure well. PRE-OP/PRE-PROCEDURE DIAGNOSIS: Gross hematuria, possible ureteral lesion POST-OP/POST-PROCEDURE DIAGNOSIS: Same as Preop And bilateral distal narrowing ESTIMATED BLOOD LOSS: 0 ml SPECIMENS: None IMPLANTABLE DEVICES: NONE DRAINS: None COMPLICATIONS: None PARTICIPATION IN SURGERY/PROCEDURE: I/primary surgeon/proceduralist performed the procedure with assistance. SIGNATURE: Clemencia Price MD PATIENT NAME: Kacey Bentley DATE: October 01, 2024 TIME: 10:07 AM [facility] CNCOon 09-27-2024 CNCO Letter Text [facility] CNPBertha 09-17-2024 FRANCISCO Telephone (URCANT) -- KACEY BENTLEY ([id number]) 1960 M Date Time Provider Department 09/17/24 CLEMENCIA PRICE During your visit today, we recorded the following information about you: Carlos Wheeler 09/17/2024 8:22 AM Signed Clemencia Price MD Smith-Mizik, Marryssa Anne On day of OR, cysto, add L use diagnostic dont need laser Allergies As of Date: 09/17/2024 (No Known Allergies) Date Reviewed: 09/16/2024 Reviewed by: Guillermo Rawls MA - Fully Assessed Reason for Visit: Surgery [Other] Prescriptions as of 09/17/2024 - Aspirin 81 mg tab Take 81 mg by mouth. - rosuvastatin (CRESTOR) 20 mg tablet Take 1 tablet by mouth once daily. - FLUoxetine (PROZAC) 40 mg capsule Take 1 capsule by mouth once daily. - finasteride (PROSCAR) 5 mg tablet Take 1 tablet by mouth once daily. - melatonin 5 mg chew Take 1 tablet by mouth daily at bedtime. - dicyclomine (BENTYL) 10 mg capsule Take 1 capsule by mouth before meals and at bedtime. For bowels/irritable bowels - clonazePAM (KLONOPIN) 1 mg tablet Take 1 tablet by mouth daily at bedtime for 180 days. Patient should start on September 03, 2024. Meds Comments as of 04/05/2023: 2023: Taking Vit D3-B12 gummy supplement, D3 2000 international unit(s) and B12 500mcg Problem List As Of Date 09/17/2024 Noted Resolved Hypercholesteremia [E78.00] 03/29/2013 Depression [F32.A] [...] disorder) [G47.61] 03/25/2024 Encounter Status:Closed by CARLOS WHEELER on 09/17/24 [facility] 25(OH)D3 [facility] 25-hydroxyvitamin D3 [Mass/Vol] 44.7 ng/mL Normal 31.0-80.0 [facility] Comment on above: Order Comment: Speci men Type: BLOOD SPECIMENOrdering Facility: [facility] Address: [facility] [place] [address] Result Comment: Clas sification of 25 [place] Vitamin D status: Deficiency/Insufficiency: < or = 30 ng/ml. Sufficiency/Optimal Levels: 31-80 ng/mL Toxicity: > 100 ng/mL. Test performed by chemiluminescent immunoassay. Performed By: #### 1 989-3 ####[facility] LABIA [id number] [address] [address] [place] CBC panel Auto (Bld)on 09-16 Erythrocyte distribution width (RBC) [Ratio] 12.4 % Normal 11.5-15.0 [facility] Comment on above: Order Comment: Speci men Type: BLOOD SPECIMENOrdering Facility: [facility] Address: [address] [place] [address] Performed By: #### 5 8410-2 ####[facility] LABIA [id number] [place] [address] [place] Hematocrit (Bld) [Volume fraction] 40.8 % Normal 39.0-51.0 [facility] Comment on above: Order Comment: Speci men Type: BLOOD SPECIMENOrdering Facility: [facility] Address: [address] [place] [address] Performed By: #### 5 8410-2 ####[facility] [id number] [address] [place] Hemoglobin (Bld) [Mass/Vol] 13.4 g/dL Normal 13.0-17.0 [facility] Comment on above: Order Comment: Speci men Type: BLOOD SPECIMENOrdering Facility: [facility] Address: [address] [place] [address] Performed By: #### 5 8410-2 ####[facility] LABIA [id number] [place] [id number] [place] MCH (RBC) [Entitic mass] 31.3 pg Normal 26.0-34.0 [facility] Comment on above: Order Comment: Speci men Type: BLOOD SPECIMENOrdering Facility: [facility] Address: [address] [place] [address] Performed By: #### 5 8410-2 ####[facility] [id number] [place] [id number] [place] MCHC (RBC) [Mass/Vol] 32.8 g/dL Normal 30.5-36.0 [facility] Comment on above: Order Comment: Speci men Type: BLOOD SPECIMENOrdering Facility: [facility] Address: [address] [place] [address] Performed By: #### 5 8410-2 ####[facility] LABCLIA [id number] [place] [address] [place] MCV (RBC) [Entitic vol] 95.3 fL Normal 80.0-100.0 [facility] Comment on above: Order Comment: Speci men Type: BLOOD SPECIMENOrdering Facility: [facility] Address: [address] [place] [address] Performed By: #### 5 8410-2 ####[facility] LABCLIA [id number] [place] [address] [place] Nucleated RBC (Bld) [#/Vol] 10*3/uL Normal <0.01 [facility] Comment on above: Order Comment: Speci men Type: BLOOD SPECIMENOrdering Facility: [facility] Address: [address] [place] [address] Performed By: #### 5 8410-2 ####[facility] LABCLIA [id number] [place] [id number] [place] Platelet mean volume (Bld) [Entitic vol] 10.6 fL Normal 9.0-12.7 [facility] Comment on above: Order Comment: Speci men Type: BLOOD SPECIMENOrdering Facility: [facility] Address: [address] [place] [address] Performed By: #### 5 8410-2 ####[facility] LABCLIA [id number] [place] [id number] [place] Platelets (Bld) [#/Vol] 158 10*3/uL Normal 150-400 [facility] Comment on above: Order Comment: Speci men Type: BLOOD SPECIMENOrdering Facility: [facility] Address: [address] [place] [address] Performed By: #### 5 8410-2 ####[facility] [id number] [place] [address] [place] RBC (Bld) [#/Vol] 4.28 10*6/uL Normal 4.20-6.00 [facility] Comment on above: Order Comment: Speci men Type: BLOOD SPECIMENOrdering Facility: [facility] Address: [address] [place] [address] Performed By: #### 5 8410-2 ####[facility] [id number] [place] [address] [place] WBC (Bld) [#/Vol] 5.76 10*3/uL Normal 3.70-11.00 [facility] Comment on above: Order Comment: Speci men Type: BLOOD SPECIMENOrdering Facility: [facility] Address: [address] [place] [address] Performed By: #### 5 8410-2 ####[facility] [id number] [place] [address] [place] CNOVon 09-16-2024 CNOV Office Visit (URCANT ) -- KACEY BENTLEY ([id number]) 1960 M Date Time Provider Department 09/16/24 10:30 AM CLEMENCIA PRICE URCANT During your visit today, we recorded the following information about you: Clemencia Price MD 09/16/2024 11:51 AM Signed [facility] ESTABLISHED PATIENT OFFICE VISIT Patient presents with: Blood In Urine: Patient here today to discuss having his Cystoscopy HISTORY OF PRESENT ILLNESS Kacey Bentley is a 64 year old male who is here for follow up gross hematuria 1 day but had been on Augmentin for dog bite, was loading laundry bending over and sudden, V severe LLQ pain (had to crawl up stairs, passed out on couch?) sudden urge to void at home and gross hem, and then to ER, (gross again)no pain since that brief event, then cleared by days end, never prior Had severe sweating/nausea ??? Did not feel like prior stone? Noct 0x, day q 3-5hr, flow good, no dribbles or prior uti's Reviewed ct and pics, dw do to pain on L and ct findings of L distal ureter, plan dx use on L CTU--09/10/2024 8:46 AM - Radiology, Oru In Impression IMPRESSION: 1. No urinary tract calculi or renal solid masses identified. 2. Nondiagnostic evaluation of portions of the mid to distal right ureter and long segment of the mid to distal left ureter due to nonopacification during this study. Otherwise, no CT evidence of urothelial lesion. 3. Mildly enlarged prostate. Correlate with PSA levels. 4. 3 cm abdominal aortic aneurysm. Review of Systems The remainder of the ROS was reviewed and is negative. LAB Creatinine Date Value Ref Range Status 09/04/2024 1.27 (H) 0.73 - 1.22 mg/dL Final PSA (ng/mL) Date Value 07/31/2019 0.20 05/13/2019 0.16 PSA Screening (ng/mL) Date Value 10/20/2021 0.26 05/18/2018 0.10 12/06/2016 0.10 03/26/2013 0.28 GLUCOSE UA (POCT) (mg/dL) Date Value 09/16/2024 Negative BILIRUBIN UA (POCT) (no units) Date Value 09/16/2024 Negative KETONE UA (POCT) (mg/dL) Date Value 09/16/2024 Negative SPECIFIC GRAVITY UA (POCT) (no units) Date Value 09/16/2024 1.015 HEMOGLOBIN/BLOOD UA (POCT) (no units) Date Value 09/16/2024 Negative PH UA (POCT) (no units) Date Value 09/16/2024 7.5 PROTEIN UA (POCT) (mg/dL) Date Value 09/16/2024 Negative UROBILINOGEN UA (POCT) (E.U./dL) Date Value 09/16/2024 0.2 NITRITE UA (POCT) (no units) Date Value 09/16/2024 Negative LEUKOCYTES UA (POCT) (no units) Date Value 09/16/2024 Negative COLOR UA (POCT) (no units) Date Value 09/16/2024 Yellow CLARITY UA (POCT) (no units) Date Value 09/16/2024 Clear ] MEDICATIONS Aspirin 81 mg tab Take 81 mg by mouth. rosuvastatin (CRESTOR) 20 mg tablet Take 1 tablet by mouth once daily. FLUoxetine (PROZAC) 40 mg capsule Take 1 capsule by mouth once daily. finasteride (PROSCAR) 5 mg tablet Take 1 tablet by mouth once daily. melatonin 5 mg chew Take 1 tablet by mouth daily at bedtime. dicyclomine (BENTYL) 10 mg capsule Take 1 capsule by mouth before meals and at bedtime. For bowels/irritable bowels clonazePAM (KLONOPIN) 1 mg tablet Take 1 tablet by mouth daily at bedtime for 180 days. Patient should start on September 03, 2024. 0 HISTORIES PAST MEDICAL HISTORY Diagnosis Date Arthritis [...] Relation Age of Onset Emphysema Mother 62 Heart Attack Father No Known Problems Sister No Known Problems Sister Heart Attack Sister No Known Problems Sister No Known Problems Sister Colon Cancer Brother 58 Heart Attack Brother No Known Problems Brother No Known Problems Maternal Grandmother other (black lung) Maternal Grandfather Heart Paternal Grandmother Heart Paternal Grandfather No Ocular Disease No Family History SOCIAL HISTORY Social History Tobacco Use Smoking status: Former Current packs/day: 0.00 Average packs/day: 1.3 packs/day for 35.0 years (43.8 ttl pk-yrs) Types: Cigarettes Start date: 02/20/1970 Quit date: 02/20/2005 Years since quittin.5 Smokeless tobacco: Never Vaping Use Vaping status: Never Used Substance Use Topics Alcohol use: Not Currently Comment: Quit 04/29/2024 Drug use: Yes Frequency: 7.0 times per week Types: Marijuana Comment: uses daily There were no vitals taken for this visit. Physical Exam Visit complexit (more content not included)... Normal [facility] Comprehensive metabolic 2000 panelon 09-16-2024 Albumin [Mass/Vol] 4.3 g/dL Normal 3.9-4.9 [facility] Comment on above: Order Comment: Speci men Type: BLOOD SPECIMENOrdering Facility: [facility] Address: [address] [place] [address] Performed By: #### 2 4323-8, 87072-5, 3051-0, 302-7 ####[facility] LABIA [id number] [place] [address] [place] ALP [Catalytic activity/Vol] 53 U/L Normal 38-113 [facility] Comment on above: Order Comment: Speci men Type: BLOOD SPECIMENOrdering Facility: [facility] Address: [address] [place] [address] Performed By: #### 2 4323-8, 37817-9, 3051-0, 3024-7 ####[facility] LABIA [id number] [place] [address] [place] ALT [Catalytic activity/Vol] 14 U/L Normal 10-54 [facility] Comment on above: Order Comment: Speci men Type: BLOOD SPECIMENOrdering Facility: [facility] Address: [address] [place] [address] Performed By: #### 2 4323-8, 02515-1, 3051-0, 3024-7 ####[facility] LABIA [id number] [address] [address] [place] Anion gap [Moles/Vol] 10 mmol/L Normal 8-15 [facility] Comment on above: Order Comment: Speci men Type: BLOOD SPECIMENOrdering Facility: [facility] Address: [address] [place], [place] [id number] Performed By: #### 2 4323-8, 32162-2, 3051-0, 3024-7 ####[facility] LABCLIA [id number] [place] [id number] [place] AST [Catalytic activity/Vol] 19 U/L Normal 14-40 [facility] Comment on above: Order Comment: Speci men Type: BLOOD SPECIMENOrdering Facility: [facility] Address: [address] [place] [address] Performed By: #### 2 4323-8, 27983-7, 3051-0, 3024-7 ####[facility] LABIA [id number] [place] [id number] [place] Bilirubin [Mass/Vol] 0.6 mg/dL Normal 0.2-1.3 [facility] Comment on above: Order Comment: Speci men Type: BLOOD SPECIMENOrdering Facility: [facility] Address: [address] [place] [address] Performed By: #### 2 4323-8, 91575-1, 3051-0, 3024-7 ####[facility] LABIA [id number] [place] [id number] [place] Calcium [Mass/Vol] 9.3 mg/dL Normal 8.5-10.2 [facility] Comment on above: Order Comment: Speci men Type: BLOOD SPECIMENOrdering Facility: [facility] Address: [address] [place], [place] [address] Performed By: #### 2 4323-8, 22692-6, 3051-0, 3024-7 ####[facility] LABCLIA [id number] [address] [address] [place] Chloride [Moles/Vol] 101 mmol/L Normal 98-107 [facility] Comment on above: Order Comment: Speci men Type: BLOOD SPECIMENOrdering Facility: [facility] Address: [address] [place] [address] Performed By: #### 2 4323-8, 76379-2, 3051-0, 3024-7 ####[facility] LABIA [id number] [place] [address] [place] CO2 [Moles/Vol] 25 mmol/L Normal 22-30 [facility] Comment on above: Order Comment: Speci men Type: BLOOD SPECIMENOrdering Facility: [facility] Address: [address] [place] [address] Performed By: #### 2 4323-8, 38411-5, 3051-0, 3024-7 ####[facility] LABIA [id number] [place] [address] [place] Creatinine [Mass/Vol] 1.05 mg/dL Normal 0.73-1.22 [facility] Comment on above: Order Comment: Speci men Type: BLOOD SPECIMENOrdering Facility: [facility] Address: [address] [place] [address] Performed By: #### 2 4323-8, 92095-6, 3051-0, 3024-7 ####[facility] [id number] [place] [address] [place] eGFRcr SerPlBld CKD-EPI 2020 78 mL/min/1.73m??? Normal >=60 [facility] Comment on above: Order Comment: Speci men Type: BLOOD SPECIMENOrdering Facility: [facility] Address: [address] [place] [address] Result Comment: Rochelle mated Glomerular Filtration Rate (eGFR) is calculated using the 2020 CKD-EPI creatinine equation. This equation utilizes serum creatinine, sex, and age as parameters. The creatinine assay has traceable calibration to isotope dilution-mass spectrometry. Refer to KDIGO guidelines for clinical interpretation. In patients with unstable renal function, e.g. those with acute kidney injury, the eGFR may not accurately reflect actual GFR. Performed By: #### 2 4323-8, 18761-2, 3051-0, 3023-08 ####[facility] LABCLIA [id number] [facility] [place] [id number] [address] [place] Glucose [Mass/Vol] 159 mg/dL High 74-99 [facility] Comment on above: Order Comment: Speccarlie solis Type: BLOOD SPECIMENOrdering Facility: [facility] Address: [address] [place] [address] Result Comment: The [place] Diabetes Association (ADA) provides guidance for cutoff values for fasting glucose and random glucose. The ADA defines fasting as no caloric intake for at least 8 hours. Fasting plasma glucose results between 100 to 125 mg/dL indicate increased risk for diabetes (prediabetes). Fasting plasma glucose results greater than or equal to 126 mg/dL meet the criteria for diagnosis of diabetes. In the absence of unequivocal hyperglycemia, results should be confirmed by repeat testing. In a patient with classic symptoms of hyperglycemia or hyperglycemic crisis, random plasma glucose results greater than or equal to 200 mg/dL meet the criteria for diagnosis of diabetes. Reference: Standards of Medical Care in Diabetes 2016, [place] Diabetes Association. Diabetes Care. 2016.39(Suppl 1). Performed By: #### 2 4323-8, 59695-5, 305-0, 3023-08 ####[facility] LABCLIA [id number] [facility] [address] [address] [place] Potassium [Moles/Vol] 4.6 mmol/L Normal 3.7-5.1 [facility] Comment on above: Order Comment: Zenaida solis Type: BLOOD SPECIMENOrdering Facility: [facility] Address: [address] [place] [address] Performed By: #### 2 4323-8, 53392-9, 305-0, 7 ####[facility] LABCLIA [id number] [facility] [id number] [id number] [place] Protein [Mass/Vol] 6.5 g/dL Normal 6.3-8.0 [facility] Comment on above: Order Comment: Speci men Type: BLOOD SPECIMENOrdering Facility: [facility] Address: [address] [place] [address] Performed By: #### 2 4323-8, 98151-9, 3051-0, 302-7 ####[facility] LABCLIA [id number] [place] [address] [place] Sodium [Moles/Vol] 136 mmol/L Normal 136-144 [facility] Comment on above: Order Comment: Speci men Type: BLOOD SPECIMENOrdering Facility: [facility] Address: [address] [place] [address] Performed By: #### 2 4323-8, 30994-0, 3051-0, 302-7 ####[facility] LABIA [id number] [place] [address] [place] Urea nitrogen [Mass/Vol] 12 mg/dL Normal 9-24 [facility] Comment on above: Order Comment: Speci men Type: BLOOD SPECIMENOrdering Facility: [facility] Address: [address] [place] [address] Performed By: #### 2 4323-8, 71983-6, 3051-0, 3027 ####[facility] LABIA [id number] [place] [id number] [place] Lipid 1996 panelon 5 Cholesterol [Mass/Vol] 167 mg/dL Normal <200 [facility] Comment on above: Order Comment: Speci men Type: BLOOD SPECIMENOrdering Facility: [facility] Address: [address] [place] [address] Result Comment: <200 mg/dL, Desirable 200-239 mg/dL, Borderline high >239 mg/dL, High Performed By: #### 2 4323-8, 54264-5, 3051-0, 302-7 ####[facility] LABCLIA [id number] [address] [address] [place] Cholesterol in HDL [Mass/Vol] 51 mg/dL Normal >39 [facility] Comment on above: Order Comment: Speci men Type: BLOOD SPECIMENOrdering Facility: [facility] Address: [address] [place] [address] Result Comment: 40-5 9 mg/dL, Acceptable >59 mg/dL, High: Negative risk factor for coronary heart disease <40 mg/dL, Low: Positive risk factor for coronary heart disease Performed By: #### 2 4323-8, 31651-7, 305-0, 7 ####[facility] LABIA [id number] [place] [address] [place] Cholesterol in LDL [Mass/Vol] 102 mg/dL High <100 [facility] Comment on above: Order Comment: Bernardi men Type: BLOOD SPECIMENOrdering Facility: [facility] Address: [address] [place] [address] Result Comment: <100 mg/dL, Optimal 100-129 mg/dL, Near optimal/above optimal 130-159 mg/dL, Borderline high 160-189 mg/dL, High >189 mg/dL, Very high Secondary prevention optimal LDL Cholesterol levels are recommended to be <70 mg/dL LDL cholesterol is calculated using the Vasquez-NIH equation. Performed By: #### 2 4323-8, 16180-1, 305-0, 3023-08 ####[facility] LABIA [id number] [address] [address] [place] Cholesterol in LDL/Cholesterol in HDL [Mass ratio] 2.00 {ratio} Normal <2.54 [facility] Comment on above: Order Comment: Speci men Type: BLOOD SPECIMENOrdering Facility: [facility] Address: [address] [place] [address] Result Comment: Refe rence: 1. National Cholesterol Education Program ATP III Guideline At-A-Glance Quick Desk Reference: National Heart, Lung, [facility] [place] [facility]. National Institutes of Health. 2001: NIH Publication No. 01-3305. 2. An International Atherosclerosis Society position paper: global recommendations for the management of dyslipidemia: executive summary, Atherosclerosis. 2014: 232(2):410-413. Performed By: #### 2 4323-8, 64340-5, 3051-0, 3023-08 ####[facility] LABCLIA [id number] [address] [address] [place] Cholesterol in VLDL [Mass/Vol] 12 mg/dL Normal <30 [facility] Comment on above: Order Comment: Speci men Type: BLOOD SPECIMENOrdering Facility: [facility] Address: [address] [place] [address] Performed By: #### 2 4323-8, 93426-7, 305-0, 3023-08 ####[facility] LABCLIA [id number] [address] [address] [place] Cholesterol non HDL [Mass/Vol] 116 mg/dL Normal <130 [facility] Comment on above: Order Comment: Speci men Type: BLOOD SPECIMENOrdering Facility: [facility] Address: [address] [place] [address] Result Comment: <130 mg/dL, Optimal 130-159 mg/dL, Near optimal/above optimal 160-189 mg/dL, Borderline high 190-219 mg/dL, High >219 mg/dL, Very high Secondary prevention optimal non HDL Cholesterol levels are recommended to be <100 mg/dL Performed By: #### 2 4323-8, 31738-2, 305-0, 3023-08 ####[facility] LABCLIA [id number] [address] [address] [place] Cholesterol.total/Chol esterol in HDL [Mass ratio] 3.27 {ratio} Normal <5.10 [facility] Comment on above: Order Comment: Speci men Type: BLOOD SPECIMENOrdering Facility: [facility] Address: [address] [place] [address] Performed By: #### 2 4323-8, 42263-7, 305-0, 3024-7 ####[facility] LABCLIA [id number] [address] [place] [address] [place] FASTING TIME 12 hrs Normal [facility] Comment on above: Order Comment: Speci men Type: BLOOD SPECIMENOrdering Facility: [facility] Address: [address] [place] [address] Performed By: #### 2 4323-8, 68026-1, 305-0, 3024-7 ####[facility] LABIA [id number] [address] [place] [address] [place] Triglyceride [Mass/Vol] 73 mg/dL Normal <150 [facility] Comment on above: Order Comment: Speci men Type: BLOOD SPECIMENOrdering Facility: [facility] Address: [address] [place] [address] Result Comment: <150 mg/dL, Normal 150-199 mg/dL, Borderline high 200-499 mg/dL, High >499 mg/dL, Very high Performed By: #### 2 4323-8, 01881-3, 305-0, 30247 ####[facility] LABIA [id number] [address], [facility] [place] PSA/PROSTATE SPECIFIC ANTIGE N SCREENINGon 09-16-2024 Prostate specific Ag [Mass/Vol] 0.06 ng/mL Normal <2.60 [facility] Comment on above: Order Comment: Speci men Type: BLOOD SPECIMENOrdering Facility: [facility] Address: [address] [place] [address] Result Comment: Tota l PSA test methodology used is the Electrochemiluminescence Immunoassay by [employer]. Total PSA values by differing methodologies cannot be interchanged. Performed By: #### P SAS1 ####[facility] LABCLIA [id number] [address] [place] [address] [place] T3Free SerPl-mCncon 09-17-19 25 Free T3 [Mass/Vol] 2.7 pg/mL Normal 2.3-4.1 [facility] Comment on above: Order Comment: Speci men Type: BLOOD SPECIMENOrdering Facility: [facility] Address: [address] [place] [address] Performed By: #### 2 4323-8, 63798-2, 3051-0, 3024-7 ####[facility] LABCLIA [id number] [place] [address] [place] T4 Free SerPl-mCncon 025 Free T4 [Mass/Vol] 0.8 ng/dL Low 0.9-1.7 [facility] Comment on above: Order Comment: Speci men Type: BLOOD SPECIMENOrdering Facility: [facility] Address: [address] [place] [address] Performed By: #### 2 4323-8, 73020-3, 3051-0, 3024-7 ####[facility] LABCLIA [id number] [place] [address] [place] TSH SerPl-aCncon 09-16-2024 TSH Qn 2.600 m[IU]/L Normal 0.270-4.200 [facility] Comment on above: Order Comment: Speci men Type: BLOOD SPECIMENOrdering Facility: [facility] Address: [address] [place] [address] Performed By: #### 3 016-3 ####[facility] LABCLIA [id number] [place] [address] [place] UA DIP, URINE (POC)on 2024 BILIRUBIN UA (POCT) Negative Negative [facility] CLARITY UA (POCT) Clear [facility] COLOR UA (POCT) Yellow [facility] GLUCOSE UA (POCT) Negative Negative mg/dL [facility] Hemoglobin Ql (U) Negative Negative [facility] KETONE UA (POCT) Negative Negative mg/dL [facility] LEUKOCYTES UA (POCT) Negative Negative [facility] NITRITE UA (POCT) Negative Negative [facility] PH UA (POCT) 7.5 4.5 - 8.0 [facility] Protein Ql (U) Negative Negative mg/dL [facility] SPECIFIC GRAVITY UA (POCT) 1.015 1.005 - 1.030 [facility] UROBILINOGEN UA (POCT) 0.2 Constance l E.U./dL [facility] Location:[facility] cris Duran, [address] [facility], [place], [place], [id number] [place] [address] POINT OF CARE [facility] CNPNon 09-13-2024 CNPN Telephone (URCANT) -- KACEY BENTLEY ([id number]) 1960 M Date Time Provider Department 09/13/24 CLEMENCIA PRICE During your visit today, we recorded the following information about you: Zulay Medina 09/13/2024 9:51 AM Signed Clemencia Price MD [facility] Pt is scheduled for cysto but I want to see pt next week to better plan his procedure and meet. Previous Messages ----- Message ----- From: Glo Molina Sent: 09/11/2024 3:47 PM EDT To: Clemencia Price MD Subject: Case [id number] Scheduled: Patient * You are receiving this message because you are assigned as the primary surgeon for this case. Your surgery request has been scheduled on 10/01/2024 in OR . Please access Case [id number] by clicking on the blue case link in the Case Information above to enter in day of surgery orders and any other documentation that is needed for the case. You will need to forward to another caregiver to complete the work (like a resident or METAL WIRE COATING OPERATOR/PA) if you have additional team members assisting you. Procedure(s): CYSTOSCOPY (N/A) Zulay Medina 09/13/2024 9:52 AM Signed Called patient to schedule, could only come in on Monday next week. Scheduled with Dr. Price per note Allergies As of Date: 09/13/2024 (No Known Allergies) Date Reviewed: 09/03/2024 Reviewed by: Za Arechiga, RT(R) - Fully Assessed Reason for Visit: Surgery [Other] Prescriptions as of 09/13/2024 - rosuvastatin (CRESTOR) 20 mg tablet Take 1 tablet by mouth once daily. - FLUoxetine (PROZAC) 40 mg capsule Take 1 capsule by mouth once daily. - finasteride (PROSCAR) 5 mg tablet Take 1 tablet by mouth once daily. - melatonin 5 mg chew Take 1 tablet by mouth daily at bedtime. - dicyclomine (BENTYL) 10 mg capsule Take 1 capsule by mouth before meals and at bedtime. For bowels/irritable bowels - clonazePAM (KLONOPIN) 1 mg tablet Take 1 tablet by mouth daily at bedtime for 180 days. Patient should start on September 03, 2024. Meds Comments as of 04/05/2023: 2023: Taking Vit D3-B12 gummy supplement, D3 2000 international unit(s) and B12 500mcg Problem List As Of Date 09/13/2024 Noted Resolved Hypercholesteremia [E78.00] 03/29/2013 Depression [F32.A] [...] movement disorder) [G47.61] 03/25/2024 Encounter Status:Closed by ZULAY MEDINA on 09/13/24 [facility] 09-06-2024 [facility] Telephone (URCANT) -- KACEY BENTLEY ([id number]) 1960 Date Time Provider Department 09/06/24 CLEMENCIA PRICE During your visit today, we recorded the following information about you: Allergies As of Date: 09/06/2024 (No Known Allergies) Date Reviewed: 09/03/2024 Reviewed by: Za Arechiga, RT(R) - Fully Assessed Primary Visit Diagnosis:Gross hematuria [R31.0] Order(s):SURGICAL REQUEST - ELECTIVE (09/2019) [5368932] Order #: [id number]: 1 Prescriptions as of 09/06/2024 - FLUoxetine (PROZAC) 40 mg capsule Take 1 capsule by mouth once daily. - finasteride (PROSCAR) 5 mg tablet Take 1 tablet by mouth once daily. - melatonin 5 mg chew Take 1 tablet by mouth daily at bedtime. - dicyclomine (BENTYL) 10 mg capsule Take 1 capsule by mouth before meals and at bedtime. For bowels/irritable bowels - clonazePAM (KLONOPIN) 1 mg tablet Take 1 tablet by mouth daily at bedtime for 180 days. Patient should start on September 03, 2024. - rosuvastatin (CRESTOR) 20 mg tablet Take 1 tablet by mouth once daily. Meds Comments as of 04/05/2023: 2023: Taking Vit D3-B12 gummy supplement, D3 2000 international unit(s) and B12 500mcg Problem List As Of Date 09/06/2024 Noted Resolved Hypercholesteremia [E78.00] 03/29/2013 Depression [F32.A] [...] movement disorder) [G47.61] 03/25/2024 Encounter Status:Closed by CLEMENCIA PRICE on 09/06/24 [facility] 09-05-2024 CNPN Telephone (URCANT) -- KACEY BENTLEY ([id number]) 1960 M Date Time Provider Department 09/05/24 KLAUS ORDONEZ During your visit today, we recorded the following information about you: Roro Plata RN 09/05/2024 3:13 PM Signed Patient's called to clarify that patient's cystoscopy on 09/10 is to be in OR under anesthesia. 09/10 patient is scheduled in office cystoscopy Please advise next steps DHAVAL Liao Marsha 09/05/2024 3:30 PM Signed Spouse anxious to connect with Dr Ordonez's office. Spouse was scheduled for a cystoscopy with Dr Ordonez in [place] on 09/10/24. She said that her has to have the cystoscopy under anesthesia; she said that he flails/is unable to be still. Since the procedure of 09/10/[address] Ordonez was scheduled in the office, the appointment has been canceled. Patient sees Clarisse Cee in [place]. Please call spouse to assist/arrange procedure so that it accommodates patient's special needs. Carlos Wheelere 09/06/2024 8:46 AM Signed How to proceed? Carlos Wheeler 09/06/2024 11:42 AM Signed Called pt and made him aware it has been sent to Dr. Price and we will call him back. Carlos Vega 09/10/2024 11:10 AM Signed Called pt and he is on 10/08. Aware of instructions. Carlos Vega 09/12/2024 1:24 PM Signed Pt is on for a cystoscopy under general anesthesia with on 10/01/2024 CASE# [id number] Pt is aware of prep and arrival instructions given verbally 09/10. Pt states they are on aspirn. [employer] message sent 09/13. Post Op 10/22/2024 at 12:00 in the [place] office Carlos Vegae 09/20/2024 9:09 AM Signed Clemencia Price MD [facility] Carlos Espinozae On day of OR, cysto, add L use diagnostic dont need laser Sent case message to add code [id number] (cysto USE diagnostic only no laser needed) Carlos Vegae 09/30/2024 11:12 AM Signed Called to confirm surgery and pt confirmed date and procedure. 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 Reminded no NSAIDS and NPO. Pt confirmed he stopped his Asprin last week. Carlos Vegae 10/02/2024 9:[address] Price's bubble chat: set up 2 week follow up for cysto and stent removal, if needed ok in [place] Patient is on 10/14. Patient states he is having a lot of pain and discomfort on his left side. States he is nauseous, woke up in a sweat, going between hot and cold. He is aware to go to the ER if pain is not tolerable or he spikes a fever. Carlos MichaelKassandraCarlos Edmondson 10/02/2024 4:23 PM Signed Called and made pt aware and he voiced understanding. He states he is feeling better. Carlos MichaelKassandraDebo Allergies As of Date: 09/05/2024 (No Known Allergies) Date Reviewed: 09/03/2024 Reviewed by: Za Arechiga, RT(R) - Fully Assessed Reason for Visit: Appointment [186] SURGERY [Other] Prescriptions as of 10/02/2024 - cefUROXime (CEFTIN) 500 mg tablet Take 1 tablet by mouth two times a day for 5 days. - cholecalciferol (VITAMIN D-3) 5,000 unit tab Take 5,000 Units by mouth once daily. - calcium carbonate/vitamin D3 (CALCIUM 500 + D, D3, ORAL) Take 1 tablet by mouth once daily. - CPAP NON COMPLIANT - rosuvastatin (CRESTOR) 20 mg tablet Take 1 tablet by mouth once daily. - FLUoxetine (PROZAC) 40 mg capsule Take 1 capsule by mouth once daily. - finasteride (PROSCAR) 5 mg tablet Take 1 tablet by mouth once daily. - melatonin 5 mg chew Take 1 tablet by mouth daily at bedtime. - dicyclomine (BENTYL) 10 mg capsule Take 1 capsule by mouth before meals and at bedtime. For bowels/irritable bowels - clonazePAM (KLONOPIN) 1 mg tablet Take 1 tablet by mouth daily at bedtime for 180 days. Patient should start on September 03, 2024. Problem List As Of Date 09/05/2024 Noted Resolved Hypercholesteremia [E78.00] 03/29/2013 Depression [F32.A] [...] Irritable bowel syndrome with diarrhea [K58.0] 03/24/2021 (more content not included)... Normal [facility] CT UROGRAM WO/W IVCONon 07- CT UROGRAM WO/W IVCON * * *Final Report* * * DATE OF EXAM: Sep 04 2024 3:42PM [facility] 0560 - CT UROGRAM WO/W IVCON / PROCEDURE REASON: Gross hematuria * * * * Physician Interpretation * * * * EXAMINATION: CT ABDOMEN AND PELVIS WITHOUT AND WITH IV CONTRAST, INCLUDING EXCRETORY PHASE IMAGING (CT UROGRAM) 3D RECONSTRUCTIONS CLINICAL HISTORY: Hematuria. TECHNIQUE: CT urogram protocol including unenhanced, renal parenchymal phase and excretory phase renal imaging was obtained following IV contrast. Normal saline was also administered IV. No oral contrast was given. 3D image post-processing was performed and archived at the request of the referring physician, on the CT scanner workstation without concurrent physician supervision. MQ: CTU_2 Contrast: IV: 125 ml of Omnipaque 350 IV Saline: 100 ml of 0.9% NACL Solution Oral Contrast: None CT Radiation dose: Integrated dose-length product (DLP) for this visit = 1651 mGy*cm. CT Dose Reduction Employed: Automated exposure control(AEC) and iterative recon COMPARISON: MRI abdomen dated 01/17/2018 RESULT: Kidneys and urinary tract: Right: There are no renal calculi or masses. The opacified calices, renal pelvis and opacified portions of the ureter are normal without dilation, filling defect, or stricture. Portions of the mid to distal right ureter did not opacify and therefore are not evaluated Left: There are no renal calculi or solid masses. Stable 6 mm left renal midpole cyst. The opacified calices, renal pelvis and opacified portions of the proximal ureter are normal without dilation, filling defect, or stricture. Nondiagnostic evaluation of a long segment of the mid to distal left ureter due to nonopacification during the course of the study. Bladder: No filling defect, calculus, focal or diffuse wall thickening. Abdomen and Pelvis: Liver: No mass. Biliary: No bile duct dilation. Spleen: No mass. No splenomegaly. Pancreas: No mass or duct dilation. Adrenals: No mass. GI tract: No dilation or wall thickening. Normal appendix. Scattered uncomplicated colonic diverticuli. Lymph nodes: No abdominal or pelvic lymphadenopathy. Mesentery/Peritoneum: No ascites or mass. Retroperitoneum: No mass. Vasculature: Arterial atherosclerotic calcifications with 3 cm infrarenal abdominal aortic aneurysm. Pelvis: Prostate measures 4.5 cm in transverse dimension. No ascites. Bones and Soft Tissues: Degenerative changes. Lower thorax: Mild atelectatic changes. Localizer images: No additional findings. IMPRESSION: 1. No urinary tract calculi or renal solid masses identified. 2. Nondiagnostic evaluation of portions of the mid to distal right ureter and long segment of the mid to distal left ureter due to nonopacification during this study. Otherwise, no CT evidence of urothelial lesion. 3. Mildly enlarged prostate. Correlate with PSA levels. 4. 3 cm abdominal aortic aneurysm. Visiting Teacher: DEMIAN Transcribe Date/Time: Sep 10 2024 8:20A Dictated by : MOISES SANTANA MD This examination was interpreted and the report reviewed and electronically signed by: MOISES SANTANA MD on Sep 10 2024 8:44AM EST [id number] Normal [facility] Creatinine and Glomerular fi ltration rate.predicted panel (S/P/Bld)on 09-04-2024 Creatinine [Mass/Vol] 1.27 mg/dL High 0.73-1.22 [facility] Comment on above: Order Comment: Speci men Type: BLOOD SPECIMENOrdering Facility: [facility] Address: [address] [place] [address] Performed By: #### 4 5066-8 ####[facility] [id number] [place] [address] [place] eGFRcr SerPlBld CKD-EPI 2020 62 mL/min/1.73m??? Normal >=60 [facility] Comment on above: Order Comment: Speci men Type: BLOOD SPECIMENOrdering Facility: [facility] Address: [address] [place] [address] Result Comment: Rochelle mated Glomerular Filtration Rate (eGFR) is calculated using the 2020 CKD-EPI creatinine equation. This equation utilizes serum creatinine, sex, and age as parameters. The creatinine assay has traceable calibration to isotope dilution-mass spectrometry. Refer to KDIGO guidelines for clinical interpretation. In patients with unstable renal function, e.g. those with acute kidney injury, the eGFR may not accurately reflect actual GFR. Performed By: #### 4 5066-8 ####[facility] CARLOSROCKINGH[facility] MEMORIAL HOSPITALAJAYTom [id number] [place] [id number] [place] [address] OF [facility] Meseret 09-03-2024 TIMURN Telephone (UROLWS) -- KACEY BENTLEY ([id number]) 1960 M Date Time Provider Department 09/03/24 CLARISSE CEE During your visit today, we recorded the following information about you: Patricia Clifton PSS 09/03/2024 10:[address] order for creatinine order for pt , pt appt on 09/04/24 for Za Bates LPN 09/03/2024 3:40 PM Signed Called patient. Verified name and date of . Patient aware of order and will check in for CT Urogram as scheduled. Za Colón LPN Allergies As of Date: 09/03/2024 (No Known Allergies) Date Reviewed: 09/03/2024 Reviewed by: Za Arechiga, RT(R) - Fully Assessed Reason for Visit: Orders [681] Primary Visit Diagnosis:Gross hematuria [R31.0] Order(s):CREATININE BLD [SQCRET] Order #: [id number] FUTURE Prescriptions as of 09/03/2024 - FLUoxetine (PROZAC) 40 mg capsule Take 1 capsule by mouth once daily. - finasteride (PROSCAR) 5 mg tablet Take 1 tablet by mouth once daily. - melatonin 5 mg chew Take 1 tablet by mouth daily at bedtime. - dicyclomine (BENTYL) 10 mg capsule Take 1 capsule by mouth before meals and at bedtime. For bowels/irritable bowels - clonazePAM (KLONOPIN) 1 mg tablet Take 1 tablet by mouth daily at bedtime for 180 days. Patient should start on September 03, 2024. - rosuvastatin (CRESTOR) 20 mg tablet Take 1 tablet by mouth once daily. Meds Comments as of 04/05/2023: 2023: Taking Vit D3-B12 gummy supplement, D3 2000 international unit(s) and B12 500mcg Problem List As Of Date 09/03/2024 Noted Resolved Hypercholesteremia [E78.00] 03/29/2013 Depression [F32.A] [...] movement disorder) [G47.61] 03/25/2024 Encounter Status:Closed by ZA COLÓN on 09/03/24 Normal [facility] CYTOLOGY NON-GYNOrdered By: Kt Quintanilla on 08-22-2024 Case Report Medical Cytology Rep ort Case: [id number] Authorizing Provider: Clarisse Cee PA-C Collected: 08/20/2024 09:14 AM Ordering Location: Urology Received: 08/20/2024 04:51 PM Pathologist: Kt Quintanilla MD Specimen: Urine, Midstream [facility] Work Phone: Clinical History x5oazSUhUVMdu0fxDRRp bGFuZz GgXlZxBfZdXvc2HNJixmN2Jje3 MSCmFBluzZ7nVJUxBAmmV4jamt TdmMZzVYLgOXj2nM4dnZgawZ3r HeWnBnFcKHHAop7tkeZJXU9bfN VyaWFccGFyIH0= [facility] Work Phone: Disclaimer a9bykBZgQWJpw4peAVXj bGFuZz EwMzNcZnRuYmpcdWMxIHtccnRm SRrpzDsbIZKxMMSlh1cds6zckP FpONDws7rre7SsbCTmxSUtRFgi wNAomaOrpq82bRV0zA34PU9mOS JiIwT3AYRhhmD8Lsi4JCZvHKTd rKYiZ791v7ucx4qpscPhuVU3JX LyJKXiJ6KhXM3xRFWxlTKyJ38l uEJgCXZ7ABAbUBBgsGHtSFLlQX R2FXZcsWKqQ0gnEBHwFJ9etkhq ALerODzwJFByyOA1KFOwpTQyZ3 EhHFDgFGtxODJmliu7FlRfWj2x gECvtAbvBDzcX6ypyU7jYpS6PW lyN3jwhF0zRPu4EVgxMMYuqIZ3 vxH3JQDeaIPiQ9LucE5iZZOaIE 0rcnh4n1ugQLG4SAevWUIzPkE7 dhL1EBVhoQIsXDvwvJPvumvpGW NtXHLhN7JqPXiqQt5nRTNjdjay JFK8SHsjxNMxERDgd5FwLUhKDA gjHWtgH7xfdR3mxufzmOKbEUOh MUDbCAEPQYVgt1KxWD6aZAQkeO TdVBH2RDWox6VjV7Opx3NntE7u pR5ynBokcA4ggHElwDOhyMzuiL 7fiE4tAba5j6Npa0ZvqmMzRGOe BYWocXCkbI1wON4wTdJnye6isB S8VOa8CoOlQTl8VFLyw67bkCBy zXRbpEB3MVXjCOUkZKXrwACtgD peLYFrJewraUwaHAWohuQjtl8v gmeloGVil3HneS9ehUB8pVTtfZ 9uL8mkcuUvUJ0wQKMruT4mQzhj VPKnKmUgfIROJaTYc97mpPDfYZ AfoHfmpN7wpZOvwxRmDGPjq2Td qY5aeOYCXXQeM7jyKZPZYRGezd UuIY08WFcLGFpzZJLxbWV5riUY a3TxuHKgdXprHEpgb72fW4EeAC OtuQGHd2YpnJImmGlzOistfznd WLPKJXY8p57iKU1dfDa5IGmhAZ 6hqoG6HCwly9ZcbZOlWUIUeqQa VK9yKkw5XVWcUQXcpDWqeFBNWO 13FKBkRN9cpjFgdyZDPMHbyBmc Sk2yyNjdMQ4qkQt4PIwdLO7uXN ArhN6sEMivi8UjcKZbDKLoyeDw TK5elp7wwpVqt82oiTW9UA33BN rebOytR3oVYEAuBPO6eGWgoTWc aALrKO6fGMXvjuEzw2SvVH5jXF NfSNIxRYIiv4QpNS7jjORtz4Cf qPL9VVJaOYMbTRDyZMDpRKDvp3 UrQMPxbd95RRBjKagqkEgaQKPK EV8wTjWoJTgCFSkoDUTdB0ByKO QdITI8bcWvtcYJTKpNWOYpFMD9 MQoiMqcoBZC4ryYyGZFzw6NsPW niG2rlY34nqSimuAn4qLT6AZW2 uK5vKaZDhINrKMF0RBJ8knIkkv ZhmFOdYLGqc3HlO7ffedanQGjn gIFbtA3pXUWnNZRxQKGaLHIko5 LyJHVjy0KdPaNmdxEfSEZzFTSa JOQraE05WYU1bKkpoPeszwGnOW 7nQTSuznTsBTNxQSRbnX1aPF6y gPPefyQgBY8eWS9tN2Y6oAToGD PmhyVik4arOQY2AHdoACDrqPDb tWRhZECkkQphBPGtwd43 [facility] Work Phone: FINAL DIAGNOSIS c7ahfNRoRIAxzQFzAbPc MDAwXG Mvs7liSZXhuVClMiUkEtKjAlPq TffhrPIvYIFaPoFrv1fjc969oC Qmm6gmVWRcUyU1jOFyQQOvoCAt F350BQLwAAskw7uor4ZeSJNazO Xrw8B3CVMYcmogcYo1zBzvD44j b0V4QaayH2jdPGQkFWUaL4CzEK 2cMHMgUck2UPM1ERR4WLOpMAKu T3MhQL7wLPPgdKVyPGescrBrBZ xuguKesnJyJuf0AUM7ZCL4bSpc b6G3uCErgMMhdTroFhPmKwBaCc UCm4ZqAMi6pTsaZ0HsUVSjWeJ3 eCHlRUQmXXktUJJiOWBywzL5pG 33JWsmevG8sCNjl8Vhc76vs685 mK1gkWQuURA8OBFvUSVgqHIbRX VuXQG3XJZozUEtW3e8LdGblGHz V6T5OfMjjKGqV9U5KdYhdAEvZ3 W3MfNzrGJqLRQplMduBJqho772 GPR7FrEyRW9aR2Dwu5X7fE1zvC RiHCBvfVElLlYoIJDkln4qqMPn QFdxl7WhCCL5yqJ5eDViyYXmDJ VbIN59Pnzyq5BuElyrKTU1EHRc ipTbk7Mju8zsCvLnluDmE1bxZ0 WzTAWyZJRbYJSiUaAfvgJei1Vg a2CbpHNhfYa8n0mlCFIbCTMneC pxt5ckEZF6TNKeK9L9pUFrq1ki QBxmWSHnlQD7mkwpKRtlGPHkjm Z7qunrNTduVAQvfTZ9ptyrIUmy JEWiIgO0pbsxPMgoIRWyBTN5Ke AzXYShg5Dlzzl8KgYjy8KotOPn NGsuV09bl339WBSzxdErF5ypbP AowsjfxSOpsjltOSjasmY8XDIl XHBsYWluXGYxXGZzMjJcbGFuZz EwMzNcaGljaFxmMVxkYmNoXGYx ZTnpQ1fjSfSlD1ByTKQuFjFsGi SKXS8qZGJwkdYxJB8wDCK7jiNd bSAgIFxwYXIgICAgICAgICAgIE 6eC3N0wTGdIOApzpPxcJpvHYzk HUKmBXQnc8JoOBjpCPbzO8ByU2 srm48gHfffIMGeIHXbRCOsRCTp ZPfhZCOqJEBeDSIrmFuhlJ5lAa KvPwLhJqeuZP2qINSiF5satZWb NSTvGDYmO8ipZrMxbA8neTtbYY xmczIyXGJccGFyXHBhcmRccGxh kZ5pXyOhQjSvYRauhRArupiyVP glruUhXMaxvwtiOKMjMVesZ5st XlAwSBZdzSciWQsci0ZvBIMcGC MtLsGjVut6JEWtWNHpPUXcJSBw omjuiFpsjFSprxlcEFcclhL7HZ BsYWluXGYxXGZzMjJcbGFuZzEw MzNcaGljaFxmMVxkYmNoXGYxXG ayO0koPwRoTqWwOcbyMWIvzzpo YXJkXHBsYWluXGYwXGZzMjRccG zkjC0tBcHiZtJgHjavBI1hVUDt N2njrYUfADTlCGSmG3xpQwYfwT 9jaFxmMVxjZjNcZnMyMlxiIFxw HHXcxZulyR7kUkMmBnNsSnmmJS 9eKSXwW1objRKpFSQqOVAeB8eu WzKglC5rzQxfJJhqhjSiONQyrq 0= [facility] Work Phone: Gross Description k0voxUUhOROneKYAGQGv MDNcYW 7meUbubDx8nMzfOEYrvmQ5yNUc IKzvn6mcERW7k6vsueVDKkmjMX TqBY6aCUhuCGBdUU1yCrMpJRPm ZmYxXHBhcGVydzEyMjQwXHBhcG VdvMW8ABWhFN8qynhdNVusXHho NTYvidZ1BDFzzPWbU8XtCMXxQR 7fzqqiWZF2ATRKNhsxMn8gwACq bHtcZjFcZmNoYXJzZXQwXGZzd2 wbzzCTztztfZc1tZ6EGFCqI4Vt LR9Ob0lkDZLszWGiSJU5RLwyy7 rnMCzfQYY8QSWuUGMbFCIgNR7V UjGmLRz6RTV4RxAeOzK4XWr5AQ HAUZRlOOMnYbDsDEOrDUh3YRbg XFxuaCBcXHQgMSBcXGZsIFxcbm X3t0egIUPxbQQwUKN6NCzbe6eb GXbcDDQ9PDIzBkRxFHVkPA7VIw EiFMi7JNL9FlNsMgT1UOk4TRWQ TuRzQuDnYjQ4ThDwBZIhYMr2DG k6PSlOHvAyExP0UuBaNSC4KmA9 LZP9NCVkCAApHgUnQOAjPJFvKU ygoRYiOH0ncPmlXHFuKP8IRNCh ETwwDGKtDjZqYI3nJJRkknQfYU 9rYXF2vhHjyKghwQNybHkodmSo DNXegqVKObtqWXCrHJ8BTOIuHT wfWYj8ckFmUYGlSlYuWZQaG93r m0YTc0ZnJZ4XHZg1cbEkbyFGGf jaD0ApRIHiw0DjR6J9PCCvUOlr p1niSIOvRXanx6XuLAlRTDBVCT 7SJL8ngWQ4MLzSQUIIW0tNbGJ1 QEpzSGtgvTL2n5jseOBkb8n7PA adULH1gRIaTHIow9dviKLpZQmt JoqzsRVtveI3VTzQJKBVRZeUFu ImQF6gPGcCP0IPBkU5KIWxHnZ7 mMD4MG78AZJxKHKagPSpDVkuI3 50AROnVBgdRBv7uqDqFOJbWpBg PMjszn76WJP2s6zywUSxTSgaIn mdfJMrjhI1DTpPLIKFQBeTOpAm SO3rVAoMR5PVAWeIVhvwYTR2XC S2XbgnzRrsOczakiMdyGHrHyAL gQ6rhVihkC0bLKGhI4ZZVEMeOI t8mfEdYPHkYsG4STDjYZzex4nx SPRkVRbhp1ClHJgLIHLNIS6XEP 1vfKU5B3eAUCHZD2kKuBS4e8gi oEKuv4h1QLeiKZJ1fVmwvHWrqz S8QXsnu0u1ZMVgIVlap5voMYHw UMwmg7VuISeNNJWOPZ5UAU8mqX J7I4mOAQXAFWnvrWqwDolhirEl eCOxPqEFdS5reCxupP1qwEZhL3 hccHJvdGVjdFxmczIyXHBsYWlu XGVwaWNTTFAwIFxsdHJjaFxwcm 83KXX8GECuBgQ7WEMwKAass1bg INSuTBuwa9WrQYvSARJQBB0PWH 2zwRB5OQiFALSGZJtpUEU6XFU0 MnwyfXtcZmxkcnNsdCBcJzFDfX 6abLouoV6bfUSfN8exYnPdQaSt VZOxl9UwP9A4HXMpQQsni7mrYW PbPPwlh9ZmQDrUULREJW0QKX3l jCB5PCqFICCXF7hSlCJ0WRbeUV w3iIJ8d3xbmITnn1m7YQmeNSL1 mHQaaXddq6qcmIUoAAcoOtcnrW PdkaF1TZbQZMDAYTvMTfEtBI7p NKaIK6GDFeU6SWHeDvX2wMH9NW 02WCKcLAAzvBPpYLxuU304JOXh VMexXYi7haOmTQMaQbTmLP3wHD mfrl09LMZ9x6cshVZmKIxyMwcu aEIreoV1JFxXIUFNDMlCWlXyPB 7pTGzIY1UWNHhRFulxODLpNbz5 UUv4eOakBvcbmfFqsQQjWlELrX 6ZdJgdJKHxdGncYngluMW2XZbw LdstpT5buUHZAREIBwtOTskgxs QgZI9UTNBNYC2PvYL5DAG7N1x4 gQO2f2kglPQvp6p0HBwpMWF8cO xwbGFpblxsdHJjaFxmczIyICBw krLwHLMaGS2ufVBhCP7SFVVsRe GiXLSmP2xaGTPdWY8ETQOuECoh yxBnRTDsW21dt9WTo5Azl2nzpY xac3PdgSAvRZ20MAScqPJfPAJ4 GX2ayAfpZPPhOUuxwPHmSEFWQb xwbGFpbiANCn0= [facility] Work Phone: Performing Lab u9jkxNTwQRYmk1foVQMl bGFuZz EwMzNcZnRuYmpcdWMxIHtccnRm MVxhbnNpXGRlZmxhbmcxMDMzXG S2uwUcQSBpKPJ4QXD4IrYwWGGn GgNcTMK3VXAyn5rnb8KnpCAkmN YoAZohwLAnsjFwce55lMD9sB51 RZ8nLMFrKiV2UFGsgbS7Fpb2RQ XiJSRxxQMdH558j5jyc5kukjJr sDO5zHubCTYpunqhGuN4ULtbOG WthvlcXHz3KShpMQGtcTC7FTYh fTCuO5DdXZUyYB9wglz2PIH8OO ttOIBdVeY7IKKozTCeOPVodKow YToes186KPY5ApLfRMZmb5T7za KfAsPkXXApoAU8dbK7NDXuJR7a sokzo0qeCGvgYEmrABMmapS8ra H8XZVebYSlR0UktK7gJUOhIG3m iriqc9usUQS9UMzvQDOiACOdCS ucSQJaLpUfLZGpbZ5eX1ZaNVVw uTCcyvFfoVjeO6j4l8BdB5fxj7 wkT9mbkVAjS7EbXN8qqkkbeOOa Zq8vvNEiGRU6LkCLkAI9GOcczd MnG3dfohnzPY1yqJ3fE7GnuCAm EJjvt0QnmZEsHXitBi8xMCPhew pcAAc2WEOeADIrpQnkYYL3PZ93 ZSwgRGVzayBMMjEsIENsZXZlbG EaPJRWGMH6VHW0ENXnK2nHOLyb XlKEHHL8LiM9YBblBCG3hNvmmx FpGNknqYxkEOUqIERpCB3pxHlu qOe2uQxfWUTisvC5tBXrURvpm6 fjDWH2o3qisjghBYQzGXlqNp3s cHSudBmbDyKsALMuLMx8pO14GS YqmN6peLDqWRp4NKYrlFMifjXd FvXiSQHdpHUjdNM7NAAhQK8rlg pfQMirSJrdYHMgdyW8DPRgtBXk S9TkREFyQF3hjtklYXN8MViwSS BnVJA4TkWwQNFug9Yocbe5MlBj fRd2z7juNIUkLETxjUryg1wlNG W7WEViwWTgP4metF0rTGFcTY8t souwc6rsANijMZdpADQpjJI2wv Q3UAFqjFIiO0EvxM0hKSVkYVBu ceDdbWavlM7cJyJvJZCFlRZzlt 6yfWhdWLsvoWJgrYFniEL8bB5y ZBHqbrCzru7wQBDtwZspK5qdhu WcUI0fNBTggZ4dMiCSWTqjGCZd sOS6gmDNx6LnaFFnxGIJTXOgsc S8b6E6GNI6THOxZSV3O7xtMRRL jkOasEFeLINdx1hiWNLkOHCFaU G7VUqhlcHcU4guUVTmTILmASUN WMhIPuZnYaCiPgB4GOo0IHZaze KtzVJiZSijCi0cCOYppcidKIjx TTH5v1I1TDppbIQvvcYYUZ0orX NrcywgTURccGFyfX0= [facility] Work Phone: [facility] Work Phone: BACTERIAL CULTURE, URINEOrde red By: Anjel Orta on 08-21-2024 Bacteria identified Cx Nom (U) No growth (<1,000 CFU/ml) [facility] Bacteria identified Cx Nom ( U)Ordered By: Anjel Orta on 08-21-2024 Interpretation and review of laboratory results Normal [facility] Bacteria Ur Culton 5 Bacteria identified Cx Nom (U) CULTURE, URINE: No growth (<1,000 CFU/ml) Normal [facility] Comment on above: Performed By: #### 6 30-4 ####[facility] LABCLIA [id number] [address] [place] CNOVon 08-20-2024 CNOV Office Visit (UROLWS ) -- KACEY BENTLEY ([id number]) 1960 M Date Time Provider Department 08/20/24 8:30 AM CLARISSE CEE UROLDEE During your visit today, we recorded the following information about you: Temperature Pulse Respiration Blood pressure 97.8 degrees 76/minute 14/minute 112/70 Weight Height 84.4 kg 1.822 m Za Colón LPN 08/26/2024 9:45 AM Signed Verified name and date of . CC Post Void Residual HPI: Kacey Bentley is a 64 year old male. The patient is here now for an appointment with JANESSA Kay MT, PA-COV. Procedure: Explained procedure to patient and verbalizes understanding. Performed a PVR. Patient urinated and instructed to empty bladder as much as possible just prior to having PVR done using bladder ultrasound scanner. Results of scan: x mL The patient tolerated the procedure well. Plan: Appointment with Clarisse Beasley PA-C 08/26/2024 9:45 AM Signed [facility] NEW PATIENT CLINIC NOTE (M) Note was generated by [facility] [employer] and edited as appropriate SERVICE DATE: August 20, 2024 NAME: Kacey Bentley GENDER: male CHIEF COMPLAINT: The patient is a 64-year-old male with a history of BPH, presenting for evaluation of gross hematuria. HISTORY OF PRESENT ILLNESS: The patient is a 64-year-old male with a history of BPH, presenting for evaluation of gross hematuria. Hematuria: - Gross hematuria noted on 11/18. - Recent CT scan without contrast showed no stones or abnormalities. - Hematuria has resolved; only trace blood detected on dipstick today. - No blood noted in semen. BPH: - Taking finasteride for 10-15 years. - Reports urgency and incomplete bladder emptying. - Describes weak urine stream and sudden urgency. - Admits to being "usually dehydrated." LABS: PSA (ng/mL) Date Value 07/31/2019 0.20 05/13/2019 0.16 PSA Screening (ng/mL) Date Value 10/20/2021 0.26 05/18/2018 0.10 12/06/2016 0.10 03/26/2013 0.28 Testosterone (ng/dL) Date Value 05/13/2019 289 06/21/2018 368 06/30/2014 290 Hematocrit (%) Date Value 03/29/2023 42.5 09/12/2022 46.1 10/20/2021 43.8 03/24/2021 42.3 07/29/2020 43.7 02/28/2020 42.9 PSA (ng/mL) Date Value 07/31/2019 0.20 05/13/2019 0.16 PSA Screening (ng/mL) Date Value 10/20/2021 0.26 05/18/2018 0.10 12/06/2016 0.10 03/26/2013 0.28 Creatinine Date Value Ref Range Status 07/31/2023 1.16 0.73 - 1.22 mg/dL Final 03/29/2023 1.07 0.73 - 1.22 mg/dL Final 09/12/2022 1.06 0.73 - 1.22 mg/dL Final MEDICATIONS: melatonin 5 mg chew Take 1 tablet by mouth daily at bedtime. dicyclomine (BENTYL) 10 mg capsule Take 1 [...] tablet by mouth once daily. rosuvastatin (CRESTOR) 20 mg tablet Take 1 tablet by mouth once daily. iv contrast (will be provided with radiology test) CT Urogram WO/W Inject, intravenously, once for 1 dose.No IV access, insert saline lock prior to the beginning of sedation, infusion, injection of imaging exam. Discontinue saline lock post exam. If Pt. has a central line or IVAD, may access for administration according to line specific nursing protocol. Once exam is complete flush line and de-access according to line specific nursing protocol in the CT contrast administration guidelines link. 0.9 % sodium chloride (NACL 0.9%) infusion Administer at rate defined per CT contrast administration specifications. To be provided with radiology test. PAST MEDICAL HISTORY: PAST MEDICAL HISTORY Diagnosis Date Arthritis Colon polyps 03/26/2010 Dr. Salty Rodrigues, by c scope Depression Dyslipidemia Hyperlipemia BOBBY (obstructive sleep apnea) CPAP Personal history of colonic polyps 03/10/2016 tubular adenoma Sleep apnea PAST SURGICAL HISTORY: PAST SURGICAL HISTORY Procedure Laterality Date CARPAL TUNNEL 2012 both wrists COLONOSCOPY 2010 COLONOSCOPY GEN ANES 07/09/2020 Repeat in 5 years EGD 07/10/2020 PAST SURGICAL HISTORY OF Bone tumor age 14 PAST SURGICAL HISTORY OF deviated septum repair PROCEDURE RM-COLONSCOPY W/BX 11/2017 FAMILY HISTORY: FAMILY HISTORY Problem Relation Age of Onset Emphysema Mother 62 Heart Attack Father No Known Problems Sister No Known Problems Sister Heart Attack Sister No Known Problems Sister No Known Problems Sister Colon Cancer Brother 58 Heart Attack Brother No Known Problems Brother No Known Problems Maternal Grandmother other (black lung) Maternal Grandfat (more content not included)... Normal [facility] CYTOLOGY NON-GYNon 5 AP DISCLAIMER Normal [facility] Comment on above: Order Comment: Speci men Type: URINE SPECIMENOrdering Facility: [facility] Address: [address] [place] [address] Result Comment: Jorge flores Developed Test (LDT) Disclaimer: Performance characteristics of immunohistochemical, immunofluorescent, and chromogenic in-situ hybridization tests have been determined by the performing laboratory within [facility]'s Vinayak Raul [facility] Pathology and Laboratory Medicine Department ([facility], [facility], [facility], [facility], [facility], [facility], or [facility]) in a manner consistent with CLIA requirements. One or more of these tests may not have been cleared or approved by the FDA. [facility] is regulated under CLIA as qualified to perform high-complexity testing. These tests are used for clinical purposes. These should not be regarded as investigational or for research. Positive and negative controls stain appropriately. Performed By: #### C NANCY ####[facility] LABCLIA [id number] [place] [address] [place] CASE REPORT Normal [facility] Comment on above: Order Comment: Speci men Type: URINE SPECIMENOrdering Facility: [facility] Address: [address] [place] [address] Result Comment: [facility] Cytology Report Case: [id number] Authorizing Provider: Clarisse Cee PA-C Collected: 08/20/2024 09:14 AM Ordering Location: Urology Received: 08/20/2024 04:51 PM Pathologist: Kt Quintanilla MD Specimen: Urine, Midstream Performed By: #### C YTONON ####[facility] LABCLIA [id number] [place] [address] [place] CLINICAL HISTORY Gross Hematuria Normal [facility] Comment on above: Order Comment: Speci men Type: URINE SPECIMENOrdering Facility: [facility] Address: [address] [place] [address] Performed By: #### C YTONON ####[facility] LABCLIA [id number] [address] STATES OF [facility] FINAL DIAGNOSIS Normal [facility] Comment on above: Order Comment: Speci men Type: URINE SPECIMENOrdering Facility: [facility] Address: [address] [place] [address] Result Comment: A - Urine, Midstream Negative for high-grade urothelial carcinoma. at 0751 EDT Performed By: #### C YTONON ####[facility] LABCLIA [id number] [address] [place] FINAL PERFORMING LAB Normal [facility] Comment on above: Order Comment: Speci men Type: URINE SPECIMENOrdering Facility: [facility] Address: [address] [place] [address] Result Comment: Tech nical component, telephone order supervisor screening performed at: [facility], [address] [place], [place] [id number] CLIA: [id number] Diagnostic interpretation performed at: [facility], [address] [place], [place] [address] CLIA# [id number] Pest Control Worker Helper: Jacky Hess MD Performed By: #### C YTONON ####[facility] LABCLIA [id number] [place] [address] [place] GROSS DESCRIPTION Normal [facility] Comment on above: Order Comment: Speci men Type: URINE SPECIMENOrdering Facility: [facility] Address: [address] [place] [address] Result Comment: A. U rine, Midstream 9 cc clear mcmullen yellow fluid . ThinPrep prepared. Performed By: #### C YTONON ####[facility] LABCLIA [id number] [place] [address] [place] UA DIP, URINE (POC)on 2024 BILIRUBIN UA (POCT) Negative Negative [facility] CLARITY UA (POCT) Slightly Cloudy [facility] COLOR UA (POCT) Yellow [facility] GLUCOSE UA (POCT) Negative Negative mg/dL [facility] Hemoglobin Ql (U) Trace-intact Abnormal Negative [facility] Interpretation and review of laboratory results Abnormal [facility] KETONE UA (POCT) Negative Negative mg/dL [facility] LEUKOCYTES UA (POCT) Negative Negative [facility] NITRITE UA (POCT) Negative Negative [facility] PH UA (POCT) 5.5 4.5 - 8.0 [facility] Protein Ql (U) Negative Negative mg/dL [facility] SPECIFIC GRAVITY UA (POCT) >=1.030 1.005 - 1.030 [facility] UROBILINOGEN UA (POCT) 0.2 Constance l E.U./dL [facility] Location:[facility], [address], [place], [address] [facility] POINT OF CARE [facility] Meseret 08-19-2024 FRANCISCO Telephone (UROLWS) -- MCKACEY Ragsdale ([id number]) 1960 M Date Time Provider Department 08/19/24 CLARISSE CEE During your visit today, we recorded the following information about you: Za Colón LPN 08/19/2024 4:32 PM Signed Faxed request for imaging/emergency room visit from [facility] on 08/18/2024. RUBEN Perez Kimberly, LPN 08/19/2024 4:32 PM Signed [facility] notified of request for records to be pushed. Za Colón LPN Allergies As of Date: 08/19/2024 (No Known Allergies) Date Reviewed: 08/12/2024 Reviewed by: Sushant Colmenares APRN.MANAGER MEDICARE - Fully Assessed Reason for Visit: Request Outside Medical Records [[id number]] Prescriptions as of 08/21/2024 - iv contrast (will be provided with radiology test) CT Urogram WO/W Inject, intravenously, once for 1 dose.No IV access, insert saline lock prior to the beginning of sedation, infusion, injection of imaging exam. Discontinue saline lock post exam. If Pt. has a central line or IVAD, may access for administration according to line specific nursing protocol. Once exam is complete flush line and de-access according to line specific nursing protocol in the CT contrast administration guidelines link. - melatonin 5 mg chew Take 1 tablet by mouth daily at bedtime. - dicyclomine (BENTYL) 10 mg capsule Take 1 capsule by mouth before meals and at bedtime. For bowels/irritable bowels - clonazePAM (KLONOPIN) 1 mg tablet Take 1 tablet by mouth daily at bedtime for 180 days. Patient should start on September 03, 2024. - FLUoxetine (PROZAC) 40 mg capsule Take 1 capsule by mouth once daily. - finasteride (PROSCAR) 5 mg tablet Take 1 tablet by mouth once daily. - rosuvastatin (CRESTOR) 20 mg tablet Take 1 tablet by mouth once daily. Meds Comments as of 04/05/2023: 2023: Taking Vit D3-B12 gummy supplement, D3 2000 international unit(s) and B12 500mcg Problem List As Of Date 08/19/2024 Noted Resolved Hypercholesteremia [E78.00] 03/29/2013 Depression [F32.A] [...] movement disorder) [G47.61] 03/25/2024 Encounter Status:Closed by ZA COLÓN on 08/21/24 Normal [facility] Urine Cultureon 08-19-2024 [facility] Culture exhibits no growth. Normal [facility] Comment on above: Performed By: #### M 100.2200 #### [facility] [address] [place], [place], [address] Abdomen/Pelvis without Conto n 08-18-2024 Abdomen/Pelvis without Cont [facility] [address] [place] [address] Abdomen/Pelvis without Cont MR#: [id number] Acct: [id number] Name: KACEY BENTLEY Rep #: [id number] : 1960 M 64 From: Faraz Arita MD PCP: Dr. Jules Haynes DO Status: REG ER Study: Abdomen/Pelvis without Cont Date of Exam: 07/22 11/14 Exam# [id number] Ordering Dr: Annie Jones PROCEDURE: ABDOMEN/PELVIS WITHOUT CONT 08/18/2024 REASON FOR EXAM: LLQ PAIN AND HEMATURIA TECHNIQUE: ABDOMEN/PELVIS WITHOUT CONT Noncontrast technique limits evaluation of the abdominal and pelvic viscera. Coronal and Sagittal reconstruction series were provided. One or more dose reduction techniques were used (e.g., Automated exposure control, adjustment of the mA and/or kV according to patient size, use of iterative reconstruction technique). COMPARISON: 09/05/2022 FINDINGS: Dependent atelectasis. Normal heart size. Normal liver, gallbladder, pancreas, spleen, adrenal glands, kidneys. No hydronephrosis or ureteral stone. Unremarkable bladder. No retroperitoneal or pelvic adenopathy. Borderline prominent infrarenal aorta, 3 cm maximum AP dimension. No free air. Nondistended bowel. Normal appendix. No acute large bowel findings. Lumbar spine degeneration. CT/Abdomen/Pelvis without Cont IMPRESSION: No acute abdominopelvic findings. Reading Location: [place] [address] CC: Dr. Jules Haynes DO; ADITYA Verma Visiting Teacher: Signed Normal [facility] Absolute lymphocyte countOrd ered By: Annie Jones on 08-18-2024 Lymphocytes Auto (Unsp spec) [#/Vol] 1.80 10*3/uL 0.83-4.51 [facility] Absolute neutrophil countOrd ered By: Annie Jones on 08-18-2024 Neutrophils (Bld) [#/Vol] 6.6 10*3/uL 2.0-7.7 [facility] Anion gap in Serum or Plasma Ordered By: Annie Jones on 08-18-2024 Anion gap [Moles/Vol] 12 mmol/L 5-15 [facility] Automated lymphocyte count a s percentage of total leukocytesOrdered By: Annie Jones on 08-18-2024 Lymphocytes/100 WBC Auto (Unsp spec) 19.3 % [facility] BUN/creatinine ratioOrdered By: Annie Jones on 08-18-2024 Urea nitrogen/Creatinine [Mass ratio] 13.3 mg/mg - [facility] Basic Metabolic Profile (BMP )on 08-18-2024 BUN/CRE 13.3 RATIO Normal - [facility] Comment on above: Performed By: #### L 100.0100, L500.2500 #### [facility] [address] [place], [address] Calcium [Mass/Vol] 9.9 mg/dL Normal 7.6-11.0 [facility] Comment on above: Performed By: #### L 100.0100, L500.2500 #### [facility] [address] [place], [address] Chloride [Moles/Vol] 102 mmol/L Normal 98-108 [facility] Comment on above: Performed By: #### L 100.0100, L500.2500 #### [facility] [address] [place], [address] CO2 [Moles/Vol] 25.7 mmol/L Normal 21.0-32.0 [facility] Comment on above: Performed By: #### L 100.0100, L500.2500 #### [facility] [address] [place], [address] Creatinine [Mass/Vol] 1.30 mg/dL High 0.70-1.20 [facility] Comment on above: Performed By: #### L 100.0100, L500.2500 #### [facility] [address] [place], [address] ECRCL 59.53 ml/min Normal 50-250 [facility] Comment on above: Performed By: #### L 100.0100, L500.2500 #### [facility] [address] [place], [address] GAP 12 Normal 5-15 [facility] Comment on above: Performed By: #### L 100.0100, L500.2500 #### [facility] [address] [place], [address] GFR/1.73 sq M.predicted among non-blacks MDRD (S/P/Bld) [Vol rate/Area] 61 mL/min/{1.73_m2} Normal >60 [facility] Comment on above: Result Comment: mL/m in/1.73m2 CKD-EPI Creatinine Equation (2020) Performed By: #### L 100.0100, L500.2500 #### [facility] [address] [place], [address] Glucose [Mass/Vol] 104 mg/dL High 70-99 [facility] Comment on above: Performed By: #### L 100.0100, L500.2500 #### [facility] [address] [place], [address] Potassium [Moles/Vol] 4.0 mmol/L Normal 3.3-5.1 [facility] Comment on above: Performed By: #### L 100.0100, L500.2500 #### [facility] [address] [place], [address] Sodium [Moles/Vol] 140 mmol/L Normal 133-145 [facility] Comment on above: Performed By: #### L 100.0100, L500.2500 #### [facility] [address] [place], [address] Urea nitrogen [Mass/Vol] 17 mg/dL Normal 4-19 [facility] Comment on above: Performed By: #### L 100.0100, L500.2500 #### [facility] [address] [place], [address] Basophil percentageOrdered B y: Annie Jones on 08-18-2024 Basophils/100 WBC (Bld) 0.4 % 0-1 [facility] Bilirubin Test strip Ql (U)O rdered By: Annie Jones on 08-18-2024 Bilirubin Ql (U) Negative Negative [facility] CBC W/Diff, Automatedon 07-22 Absolute Lymph 1.80 X10 3/uL Normal 0.83-4.51 [facility] Comment on above: Performed By: #### L 100.0100, L500.2500 #### [facility] [address] [place], [address] Absolute Neut 6.6 X10 3/uL Normal 2.0-7.7 [facility] Comment on above: Performed By: #### L 100.0100, L500.2500 #### [facility] [address] [place], [address] Basophils/100 WBC (Bld) 0.4 % Normal 0-1 [facility] Comment on above: Performed By: #### L 100.0100, L500.2500 #### [facility] [address] [place], [address] Eosinophils/100 WBC (Bld) 1.4 % Normal 0-5 [facility] Comment on above: Performed By: #### L 100.0100, L500.2500 #### [facility] [address] [place], [address] Erythrocyte distribution width (RBC) [Ratio] 11.8 % Normal 11.6-14.6 [facility] Comment on above: Performed By: #### L 100.0100, L500.2500 #### [facility] [address] [place], [address] Hematocrit (Bld) [Volume fraction] 39.9 % Low 40-54 [facility] Comment on above: Performed By: #### L 100.0100, L500.2500 #### [facility] [address] [place], [address] Hemoglobin (Bld) [Mass/Vol] 13.9 g/dL Normal 13.0-16.5 [facility] Comment on above: Performed By: #### L 100.0100, L500.2500 #### [facility] [address], [address] IG% 0.200 Normal 0.0-0.9 [facility] Comment on above: Result Comment: IG% - Immature Granulocytes (promyelocytes, myelocytes and metamyelocytes) > 1% indicates that a LEFT SHIFT is Present. Performed By: #### L 100.0100, L500.2500 #### [facility] [address] [place], [address] Lymphocytes/100 WBC (Bld) 19.3 % Normal 19-41 [facility] Comment on above: Performed By: #### L 100.0100, L500.2500 #### [facility] [address] [place], [address] MCH (RBC) [Entitic mass] 32.0 pg Normal 27.0-32.0 [facility] Comment on above: Performed By: #### L 100.0100, L500.2500 #### [facility] [address] [place], [address] MCHC (RBC) [Mass/Vol] 34.8 g/dL Normal 32-36 [facility] Comment on above: Performed By: #### L 100.0100, L500.2500 #### [facility] [address] [place], [address] MCV (RBC) [Entitic vol] 91.7 fL Normal 80-94 [facility] Comment on above: Performed By: #### L 100.0100, L500.2500 #### [facility] [address] [place], [address] Monocytes/100 WBC (Bld) 7.7 % Normal 0-10 [facility] Comment on above: Performed By: #### L 100.0100, L500.2500 #### [facility] [address] [place], [address] Neutrophils/100 WBC (Bld) 71.0 % High 47-70 [facility] Comment on above: Performed By: #### L 100.0100, L500.2500 #### [facility] [address] [place], [address] Nucleated RBC (Bld) [#/Vol] 0 10*3/uL Normal 0-5 [facility] Comment on above: Performed By: #### L 100.0100, L500.2500 #### [facility] [address] [place], [address] Platelet mean volume (Bld) [Entitic vol] 10.1 fL Normal 6.2-12.0 [facility] Comment on above: Performed By: #### L 100.0100, L500.2500 #### [facility] [address] [place], [address] Platelets (Bld) [#/Vol] 178 10*3/uL Normal 150-450 [facility] Comment on above: Performed By: #### L 100.0100, L500.2500 #### [facility] [address] [place], [address] RBC (Bld) [#/Vol] 4.35 10*6/uL Low 4.6-6.2 [facility] Comment on above: Performed By: #### L 100.0100, L500.2500 #### [facility] [address] [place], [address] RDW SD 40.1 fl Normal 35.1-43.9 [facility] Comment on above: Performed By: #### L 100.0100, L500.2500 #### [facility] [address] [place], [address] WBC (Bld) [#/Vol] 9.4 10*3/uL Normal 4.4-11.0 [facility] Comment on above: Performed By: #### L 100.0100, L500.2500 #### [facility] [address] [place], [address] Carbon dioxide, total [Moles /volume] in Central venous bloodOrdered By: Annie Jones on 08-18-2024 CO2 [Moles/Vol] 25.7 mmol/L 21.0-32.0 [facility] Chloride assayOrdered By: Laura Jones on 08-18-2024 Chloride [Moles/Vol] 102 mmol/L 98-108 [facility] Emergency Department Summary on 08-18-2024 Emergency Department Summary [facility] Medical Records Department [address] [place] [address] Emergency Department Summary 08/18/24 MR#: [id number] Acct: [id number] Name: KACEY BENTLEY Rep #: [id number] : 1960 64 From: Annie BURGESS PCP: Dr. Jules Haynes, DO Status:REG ER Location: ED HPI History of Present Illness Chief Complaint: Abd Pain Narrative Narrative: 64-year-old male with past medical history of hyperlipidemia, kidney stones, AAA, night terrors presents with abdominal pain. This afternoon he had the sudden urge to urinate and then a sharp pain in the left lower quadrant of his abdomen. He took a nap and when he woke up he urinated and it looked purple. No clots. He urinated again later and it looked pink. The LLQ pain has lessened but is still present. He denies fever or chills. No nausea or vomiting. Normal bowel movements. He had a kidney stone once before that passed on its own. He has a AAA they are monitoring. No abdominal surgeries. [facility] Medical History BPH (benign prostatic hyperplasia) CPAP (continuous positive airway pressure) dependence Factor 5 Leiden mutation, heterozygous GERD (gastroesophageal reflux disease) Sleep apnea Home Medications ???Medication ???Instructions ???Recorded ???Last Taken ???Type amitriptyline 10 mg tablet 10 mg PO DAILY 09/17/22 Unknown Hi story cyclobenzaprine 10 mg tablet 10 mg PO TID PRN Muscle Spasm #15 09/17/22 Unknown Rx TABLETS finasteride 5 mg tablet 5 mg PO DAILY 09/17/22 Unknown His tory fluoxetine 10 mg capsule 10 mg PO DAILY 09/17/22 Unknown Hi story omeprazole 20 mg capsule,delayed 20 mg PO DAILY 09/17/22 Unknown Hi story release rosuvastatin 10 mg tablet 10 mg PO DAILY 09/17/22 Unknown Hi story tramadol 50 mg tablet 50 mg PO Q6H PRN pain 2 days #6 Unknown Rx tabs ciprofloxacin HCl 500 mg tablet 500 mg PO BID #6 TABLETS 08/18/24 Unknown Rx Allergy/AdvReac Type Severity Reaction Status Date / Time No Known Allergies Allergy Verified 08/18/24 20:09 Family History Father Heart disease Hypertension Mother COPD (chronic obstructive pulmonary disease) Surgical History H/O excision of mass Social History (Updated 08/18/24 @ 20:13 by Damaris Dave) household members: spouse housing: house Smoking Status: Former smoker alcohol intake: current details: drinks 5-6 shots of whisky a day substance use type: marijuana ROS ROS ED ROS Narrative Constitutional: Negative for fever, chills, malaise. CVS: Negative for chest pain. Respiratory: Negative for shortness of breath. GI: Positive for abdominal pain. Negative for nausea, vomiting, diarrhea, constipation, melena, hematochezia. : Positive for urgency, hematuria. EXAM Physical Exam Narrative Exam Narrative: CONST: Patient appears comfortable walking around the room and then sitting in the bed in no distress. EYES: Normal inspection. NECK: Normal inspection. RESP: No respiratory distress, CTAB. CVS: Regular rate and rhythm, no murmur, no gallop. ABD: Soft and nontender, no guarding or rebound, nondistended. Back: Normal inspection, no CVA tenderness. SKIN: Color normal, no rash, warm, dry, intact. EXTREMITIES: Normal appearance, no pedal edema. NEURO: Alert and answering questions appropriately. PSYCH: Normal affect. Const Vital Signs: 08/18/24 20:09 08/18/24 22:08 Temperature 98 F Temperature Source Oral Pulse Rate 80 78 Respiratory Rate 18 18 Blood Pressure 119/87 H 128/70 H Blood Pressure Mean 97 89 Pulse Ox 98 98 Oxygen Delivery Method Room Air Physical Exam Const Vital Signs: 08/18/24 20:09 08/18/24 22:08 Temperature 98 F Temperature Source Oral Pulse Rate 80 78 Respiratory Rate 18 18 Blood Pressure 119/87 H 128/70 H Blood Pressure Mean 97 89 Pulse Ox 98 98 Oxygen Delivery Method Room Air MDM MDM MDM Narrative Medical decision making narrative: Differential includes but not limited to: Kidney stone, UTI, pyelonephritis 64-year-old male presents with urinary urgency, hematuria, and sudden onset left lower quadrant abdominal pain. He has history of kidney stone x 1 in the past. His pain has subsided and he appears comfortable and nontoxic. Vitals are stable. Normal cardiopulmonary exam. He indicates he has pain in the lateral aspect of his left lower quadrant but there is no tenderness with palpation of his abdomen. No CVA tenderness. CBC is within normal limits. Electrolytes are unremarkable. Creatinine is 1.40. In the past it has ranged between 0.93-1.26 so this may be very minimally (more content not included)... Normal [facility] Eosinophil percentageOrdered By: Annie Jones on 08-18-2024 Eosinophils/100 WBC (Bld) 1.4 % 0-5 [facility] Erythrocyte distribution wid th ratioOrdered By: Annie Jones on 08-18-2024 Erythrocyte distribution width (RBC) [Ratio] 11.8 % 11.6-14.6 [facility] Erythrocyte distribution wid th standard deviationOrdered By: Annie Jones on 08-18-2024 Erythrocyte distribution width (RBC) [Ratio] 40.1 fl 35.1-43.9 [facility] Glomerular filtration rate ( GFR) estimation/1.73 sq m using serum, plasma, or whole bOrdered By: Annie Jones on 08-18-2024 GFR/1.73 sq M.predicted among non-blacks MDRD (S/P/Bld) [Vol rate/Area] 61 mL/min/{1.73_m2} >60 [facility] Comment on above: mL/min/1.73m2 CKD-EP I Creatinine Equation (2020) Hematocrit Auto (Bld) [Volum e fraction]Ordered By: Annie Jones on 08-18-2024 Hematocrit (Bld) [Volume fraction] 39.9 % Low 40-54 [facility] Hemoglobin measurementOrdere d By: Annie Jones on 08-18-2024 Hemoglobin (Bld) [Mass/Vol] 13.9 g/dL 13.0-16.5 [facility] Immature granulocytes/100 WB C Auto (Bld)Ordered By: Annie Jones on 08-18-2024 Immature granulocytes/100 WBC (Bld) 0.200 % 0.0-0.9 [facility] Comment on above: IG% - Immature Granu locytes (promyelocytes, myelocytes and metamyelocytes) > 1% indicates that a LEFT SHIFT is Present. Ketones Test strip Ql (U)Ord ered By: Annie Jones on 08-18-2024 Ketones Ql (U) 5 mg/dl High Negative [facility] MCV (mean corpuscular volume ) determinationOrdered By: Annie Jones on 08-18-2024 MCV (RBC) [Entitic vol] 91.7 fL 80-94 [facility] Mean corpuscular hemoglobin (MCH) determinationOrdered By: Annie Jones on 08-18-2024 MCH (RBC) [Entitic mass] 32.0 pg 27.0-32.0 [facility] Mean corpuscular hemoglobin concentration (MCHC) determinationOrdered By: Annie Jones on 08-18-2024 MCHC (RBC) [Mass/Vol] 34.8 g/dL 32-36 [facility] Mean platelet volume determi nationOrdered By: Annie Jones on 08-18-2024 Platelet mean volume (Bld) [Entitic vol] 10.1 fL 6.2-12.0 [facility] Microscopic analysis of urin e for red blood cells (RBC)Ordered By: Annie Jones on 08-18-2024 Microscopic analysis of urine for red blood cells (RBC) > 100 SEEN /hpf 0-5 [facility] Comment on above: Microscopic field is filled. Other elements may be obscured. Monocyte percentageOrdered B y: Annie Jones on 08-18-2024 Monocytes/100 WBC (Bld) 7.7 % 0-10 [facility] Mucus LM Ql (Urine sed)Order ed By: Annie Jones on 08-18-2024 Mucus Ql (Urine sed) 1+ /hpf [facility] Neutrophil percentageOrdered By: Annie Jones on 08-18-2024 Neutrophils/100 WBC (Bld) 71.0 % High 47-70 [facility] Nitrite Test strip Ql (U)Ord ered By: Annie Jones on 08-18-2024 Nitrite Ql (U) Negative Negative [facility] Nucleated red blood cell per centageOrdered By: Annie Jones on 08-18-2024 Nucleated RBC/100 WBC (Bld) [Ratio] 0 % 0-5 [facility] Platelet countOrdered By: Laura Jones on 08-18-2024 Platelets (Bld) [#/Vol] 178 10*3/uL 150-450 [facility] Potassium measurement (mass/ volume)Ordered By: Annie Jones on 08-18-2024 Potassium (Unsp spec) [Mass/Vol] 4.0 mmol/L 3.3-5.1 [facility] Protein Test strip Ql (U)Ord ered By: Annie Jones on 08-18-2024 Protein Ql (U) 500 mg/dl High Negative [facility] RBC Auto (Bld) [#/Vol]Ordere d By: Annie Jones on 08-18-2024 RBC (Bld) [#/Vol] 4.35 10*6/uL Low 4.6-6.2 [facility] Serum creatinine measurement (mass/volume)Ordered By: Annietom Jones on 08-18-2024 Creatinine [Mass/Vol] 1.30 mg/dL High 0.70-1.20 [facility] Serum glucose measurement (m ass/volume)Ordered By: Annie Jones on 08-18-2024 Glucose [Mass/Vol] 104 mg/dL High 70-99 [facility] Serum or plasma calcium manuel urement (mass/volume)Ordered By: Annie Jones on 08-18-2024 Calcium [Mass/Vol] 9.9 mg/dL 7.6-11.0 [facility] Serum or plasma urea nitroge n measurement (mass/volume)Ordered By: Annie Jones on 08-18-2024 Urea nitrogen [Mass/Vol] 17 mg/dL 4-19 [facility] Sodium levelOrdered By: Annie Jones on 08-18-2024 Sodium [Moles/Vol] 140 mmol/L 133-145 [facility] Squamous epithelial cells de tection in urine sediment by light microscopyOrdered By: Annie Jones on 08-18-2024 Epithelial cells.squamous LM Ql (Urine sed) 0-5 SEEN /hpf 0-5 [facility] Urinalysis, Completeon 08-18 BACTERIA RARE Normal None Seen [facility] Comment on above: Order Comment: COLOR OF URINE MAY AFFECT DIPSTICK RESULTS. CLEAN CATCH Performed By: #### L 400.0001 #### [facility] [address] [place], [place], [id number] Mucus Ql (Urine sed) 1+ /hpf Normal [facility] Comment on above: Order Comment: COLOR OF URINE MAY AFFECT DIPSTICK RESULTS. CLEAN CATCH Performed By: #### L 400.0001 #### [facility] [address] [place], [place], [id number] EPI,SQUAMOUS 0-5 SEEN Normal 0-5 [facility] Comment on above: Order Comment: COLOR OF URINE MAY AFFECT DIPSTICK RESULTS. CLEAN CATCH Performed By: #### L 400.0001 #### [facility] [address] [place], [address] RBC > 100 SEEN Normal 0-5 [facility] Comment on above: Order Comment: COLOR OF URINE MAY AFFECT DIPSTICK RESULTS. CLEAN CATCH Result Comment: Micr oscopic field is filled. Other elements may be obscured. Performed By: #### L 400.0001 #### [facility] [address] [place], [address] WBC 10-25 SEEN Normal 0-5 [facility] Comment on above: Order Comment: COLOR OF URINE MAY AFFECT DIPSTICK RESULTS. CLEAN CATCH Performed By: #### L 400.0001 #### [facility] [address] [place], [address] Clarity (U) Cloudy Normal Clear [facility] Comment on above: Order Comment: COLOR OF URINE MAY AFFECT DIPSTICK RESULTS. CLEAN CATCH Performed By: #### L 400.0001 #### [facility] [address] [facility] [address] Color (U) Brown Normal Yellow [facility] Comment on above: Order Comment: COLOR OF URINE MAY AFFECT DIPSTICK RESULTS. CLEAN CATCH Performed By: #### L 400.0001 #### [facility] [address] [place], [address] BILIRUBIN URINE Negative Normal Negative [facility] Comment on above: Order Comment: COLOR OF URINE MAY AFFECT DIPSTICK RESULTS. CLEAN CATCH Performed By: #### L 400.0001 #### [facility] [address] [place], [address] GLUCOSE, UR Normal Normal Normal [facility] Comment on above: Order Comment: COLOR OF URINE MAY AFFECT DIPSTICK RESULTS. CLEAN CATCH Performed By: #### L 400.0001 #### [facility] [address] [place], [address] KETONE UR 5 mg/dl Abnormal Negative [facility] Comment on above: Order Comment: COLOR OF URINE MAY AFFECT DIPSTICK RESULTS. CLEAN CATCH Performed By: #### L 400.0001 #### [facility] [address] [place], [address] LEUK ESTERASE 25 /ul Abnormal Negative [facility] Comment on above: Order Comment: COLOR OF URINE MAY AFFECT DIPSTICK RESULTS. CLEAN CATCH Performed By: #### L 400.0001 #### [facility] [address] [place] [address] Nitrite Ql (U) Negative Normal Negative [facility] Comment on above: Order Comment: COLOR OF URINE MAY AFFECT DIPSTICK RESULTS. CLEAN CATCH Performed By: #### L 400.0001 #### [facility] [address] [place], [address] OCCULT BLOOD-UR 250 /ul Abnormal Negative [facility] Comment on above: Order Comment: COLOR OF URINE MAY AFFECT DIPSTICK RESULTS. CLEAN CATCH Performed By: #### L 400.0001 #### [facility] [address] [place], [address] pH UR 6.5 Normal 5.0 - 8.0 [facility] Comment on above: Order Comment: COLOR OF URINE MAY AFFECT DIPSTICK RESULTS. CLEAN CATCH Performed By: #### L 400.0001 #### [facility] [address] [place] [id number] PROT DIPSTX 500 mg/dl Abnormal Negative [facility] Comment on above: Order Comment: COLOR OF URINE MAY AFFECT DIPSTICK RESULTS. CLEAN CATCH Performed By: #### L 400.0001 #### [facility] [address] [place], [address] SP.GR. DIPSTX 1.020 Normal 1.002-1.030 [facility] Comment on above: Order Comment: COLOR OF URINE MAY AFFECT DIPSTICK RESULTS. CLEAN CATCH Performed By: #### L 400.0001 #### [facility] [address] [place], [place], [address] UROBILI 1 mg/dl Abnormal Normal [facility] Comment on above: Order Comment: COLOR OF URINE MAY AFFECT DIPSTICK RESULTS. CLEAN CATCH Performed By: #### L 400.0001 #### [facility] [address] [place], [place], [id number] Urine clarityOrdered By: Barbara Jones on 08-18-2024 Clarity (U) Cloudy Clear [facility] Urine color determinationOrd ered By: Annie Jones on 08-18-2024 Color (U) Brown Yellow [facility] Urine glucose detectionOrder ed By: Annie Jones on 08-18-2024 Glucose Ql (U) Normal mg/dl Normal [facility] Urine leukocyte esterase det ection by dipstickOrdered By: Annie Jones on 08-18-2024 Leukocyte esterase Test strip Ql (U) 25 /ul High Negative [facility] Urine pHOrdered By: Annie islas on 08-18-2024 pH (U) 6.5 [pH] 5.0 - 8.0 [facility] Urine sediment bacteria coun t by microscopy (number/high power field)Ordered By: Annie Jones on 08-18-2024 Bacteria LM.HPF (Urine sed) [#/Area] RARE /hpf None Seen [facility] Urine specific gravity measu rementOrdered By: Annie Jones on 08-18-2024 Specific gravity (U) [Rel density] 1.020 1.002-1.030 [facility] Urine urobilinogen measureme ntOrdered By: Annie Jones on 08-18-2024 Urobilinogen Ql (U) 1 mg/dl High Normal [facility] White blood cell (WBC) count Ordered By: Annie Jones on 08-18-2024 WBC (Bld) [#/Vol] 9.4 10*3/uL 4.4-11.0 [facility] White blood cell countOrdere d By: Annie Jones on 08-18-2024 White blood cell count 10-25 SEEN /hpf 0-5 [facility] CNOVon 08-12-2024 CNOV Office Visit (SLEWST ) -- MCKACEY ([id number]) 1960 M Date Time Provider Department 08/12/24 1:30 PM SUSHANT COLMENARES SLEWST During your visit today, we recorded the following information about you: Pulse Respiration Blood pressure Weight 98/minute 16/minute 94/64 84.4 kg Sushant Colmenares APRN.CNP 08/12/2024 4:55 PM Signed [facility] Follow up/ Established patient visit Recording using ambient AI software for draft documentation of the visit was discussed with the patient/authorized call center support representative; all questions welcomed and answered. 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 [...] side to side, not comfortable on back -- ---- Latest Reference Range AND Units 01/08/24 11:32 [...] ng/mL <40 (more content not included)... Normal [facility] CNOVon 08-04-2024 CNOV Office Visit (LIZETTE ) -- KACEY BENTLEY ([id number]) 1960 M Date Time Provider Department 08/04/24 2:15 PM KENJI MARR During your visit today, we recorded the following information about you: Pulse Respiration Blood pressure Weight 70/minute 16/minute 137/78 85.7 kg Kenji Marr PA-C 08/04/2024 2:47 PM Signed This note was created using [employer] Studios[employer]. Subjective Kacey Bentley is a 64 year old male. Patient is a 64-year-old male who arrives for evaluation of redness and swelling to his left hand secondary to a dog bite injury that he sustained yesterday evening. Patient reports that he was at home trying to separate his 2 dogs while they were fighting when his Macanese Ang quickly bit his radial left hand. [...] is current and that all of his [place] Ang's immunizations are also current. Patient has [...] the left index finger secondary to pain. Him Clerk is otherwise strong and equal. Neurological: General: [...] Fully Assessed Reason for Visit: Dog Bite [58475] Cmt: Was bite by dog. Refill Request [94] Cmt: Wants refill of klonipin Primary Visit Diagnosis:Dog bite of left hand, initial encounter [S61.452A, W54.0XXA] Order(s):amoxicillin-clavu lanate potassium (AUGMENTIN) 875-125 mg per tabletTake 1 tablet by mouth two times a day for 10 days.Disp: 20 tabletRfl: 0 Prescriptions as of 08/04/2024 - amoxicillin-clavulanate potassium (AUGMENTIN) 875-125 mg per tablet [...] Take 1 (more content not included)... Normal [facility] KACEY BENTLEY ([id number]) 1960 M Date Time Provider Department 04/08/24 JULES HAYNES [facility] During your visit today, we recorded the following information about you: Hanh Daley LPN 04/08/2024 2:30 PM Signed Copied from phone encounter. Good morning. Jose Ramon hurt his shoulder muscle and we have tried advil and Tylenol but it does t work as well as my prescription of ibuprofen 800mg I had. Could he please have a prescription sent to [facility] in [place]. Thank you. Jonathan. 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 Need for job coverage for these concerns. Sleep is being managed by Neurologist 4. 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 Need for job coverage for these concerns. Sleep is being managed by Neurologist 5. 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 Need for (more content not included)... [facility]Y ([id number]) 1960 M Date Time Provider Department 03/25/24 JULES HAYNES [facility] During your visit today, we recorded the following information about you: Hanh Daley LPN 03/25/2024 3:35 PM Signed Patient has been identified by name and date of : Yes, Provider haynes Date 03/25/24 Time 3:34 Type of form: [...] by CARLOS RIZVI LPN on 04/16/24 Normal [facility] BENZO CONFIRM, URINEon 01-07 7-Aminoclonazepam Confirm (U) [Mass/Vol] 481 ng/mL High <40 [facility] Comment on above: Order Comment: Speci men Type: URINE SPECIMENOrdering Facility: [facility] Address: [address] [place] [address] Result Comment: 7-Am blanca-clonazepam is the primary metabolite of clonazepam (Klonopin). Presence of 4-Wgfhy-mfwlwkinxd indicates use of clonazepam-containing drugs. Performed By: #### B ENZOCFMU ####[facility] [id number] [address] STATES OF [facility] Alpha hydroxyalprazolam Confirm (U) [Mass/Vol] <60 Normal <60 [facility] Comment on above: Order Comment: Speci men Type: URINE SPECIMENOrdering Facility: [facility] Address: [address] [place] [address] Result Comment: Alph a-hydroxyalprazolam is the primary metabolite of alprazolam (Xanax). Presence of alpha-hydroxyalprazolam indicates use of alprazolam-containing drugs. Performed By: #### B ENZOCFMU ####[facility] LABIA [id number] [address] STATES OF [facility] Alpha hydroxytriazolam Confirm (U) [Mass/Vol] <40 Normal <40 [facility] Comment on above: Order Comment: Speci men Type: URINE SPECIMENOrdering Facility: [facility] Address: [address] [place] [address] Result Comment: Alph a-hydroxytriazolam is the primary metabolite of triazolam (Halcion). Presence of alpha-hydroxytriazolam indicates use of triazolam-containing drugs. Performed By: #### B ENZOCFMU ####[facility] LABCLIA [id number] [place] [address] [place] BENZO CONFIRM, NOTE Normal [facility] Comment on above: Order Comment: Speci men Type: URINE SPECIMENOrdering Facility: [facility] Address: [address] [place] [address] Result Comment: This test is for medical use only. This test was developed, and its performance characteristics determined by the [facility] Department of Pathology and Laboratory Medicine. It has not been cleared or approved by the FDA. The [facility] Department of Pathology and Laboratory Medicine is regulated under CLIA as qualified to perform high-complexity testing. This test is used for clinical purposes. It should not be regarded as investigational or for research. Performed By: #### B ENZOCFMU ####[facility] LABIA [id number] [place] [address] [place] LORazepam Confirm (U) [Mass/Vol] <40 Normal <40 [facility] Comment on above: Order Comment: Speci men Type: URINE SPECIMENOrdering Facility: [facility] Address: [address] [place] [address] Result Comment: Pres ence of lorazepam indicates use of lorazepam-containing drugs. Performed By: #### B ENZOCFMU ####[facility] LABIA [id number] [place] [address] [place] Nordiazepam Confirm (U) [Mass/Vol] <40 Normal <40 [facility] Comment on above: Order Comment: Speci men Type: URINE SPECIMENOrdering Facility: [facility] Address: [address] [place] [address] Result Comment: Obie iazepam may arise from nordiazepam-containing drugs or by metabolism of many benzodiazepines including Medazepam (Nobrium), Clorazepate (Tranxene), Halazepam (Paxipam), Prazepam (Centrax), Chlordiazepoxide (Librium), Pinazepam (Domar), and Diazepam (Valium). Nordiazepam is metabolized to oxazepam. Performed By: #### B ENZOCFMU ####[facility] [id number] [address] STATES [facility] Oxazepam [Mass/Vol] <40 Normal <40 [facility] Comment on above: Order Comment: Speci men Type: URINE SPECIMENOrdering Facility: [facility] Address: [address] [place] [address] Result Comment: Oxaz epam may arise from oxazepam-containing drugs or by metabolism from many benzodiazepines including Medazepam (Nobrium), Clorazepate (Tranxene), Halazepam (Paxipam), Prazepam (Centrax), Chlordiazepoxide (Librium), Pinazepam (Domar), and Diazepam (Valium). Performed By: #### B ENZOCFMU ####[facility] [id number] [address] [place] Temazepam Confirm (U) [Mass/Vol] <40 Normal <40 [facility] Comment on above: Order Comment: Speci men Type: URINE SPECIMENOrdering Facility: [facility] Address: [address] [place] [address] Result Comment: Renny zepam may arise from temazepam-containing drugs or by metabolism from many benzodiazepines including Medazepam (Nobrium), Clorazepate (Tranxene), Halazepam (Paxipam), Prazepam (Centrax), Chlordiazepoxide (Librium), Pinazepam (Domar), and Diazepam (Valium). Temazepam is metabolized to oxazepam. Performed By: #### B ENZOCFMU ####[facility] [id number] [address] [place] CNOVon 01-08-2024 CNOV Office Visit (SLEWST ) -- KACEY BENTLEY ([id number]) 1960 M Date Time Provider Department 01/08/24 10:40 AM [...] Saul Colmenares CNP in 4 weeks in [place]. At that time will need UDS and [...] disturbance, mood disorder and recent psychosocial stressors. HEMATOLOGIC/LYMPHATIC/IMMU NOLOGIC:Negative for prolonged bleeding, bruising easily or swollen nodes. ENDOCRINE: Negative for cold or heat intolerance, polyuria, polydipsia and goiter. The remainder of the ROS was reviewed and is negative. LAB/IMAGING: Those performed since patient's last visit have been reviewed. WBC (k/uL) Date Value 03/29/2023 7.42 RBC (m/uL) Date V (more content not included)... Normal [facility] SPECIMEN VALIDITY, URINEon 1 03-09-2023 CHROMATE,URINE <10 Normal <50 [facility] Comment on above: Order Comment: Speci men Type: URINE SPECIMENOrdering Facility: [facility] Address: [address] [place] [address] Performed By: #### L [id number] ####[facility] LABCLIA [id number] [place] [address] [place] CREATININE,URINE 239.9 mg/dL Normal 20.0-300.0 [facility] Comment on above: Order Comment: Speci men Type: URINE SPECIMENOrdering Facility: [facility] Address: [address] [place] [address] Performed By: #### L [id number] ####[facility] LABCLIA [id number] [place] [address] [place] NITRITES,URINE 55 mg/L Normal <500 [facility] Comment on above: Order Comment: Speci men Type: URINE SPECIMENOrdering Facility: [facility] Address: [address] [place] [address] Performed By: #### L [id number] ####[facility] LABCLIA [id number] [place] [address] [place] OXIDANTS,URINE 52 mg/L Normal <200 [facility] Comment on above: Order Comment: Speci men Type: URINE SPECIMENOrdering Facility: [facility] Address: [address] [place] [address] Performed By: #### L [id number] ####[facility] LABCLIA [id number] [place] [address] [place] pH (U) 6.0 [pH] Normal 4.5-8.0 [facility] Comment on above: Order Comment: Speci men Type: URINE SPECIMENOrdering Facility: [facility] Address: [address] [place] [address] Performed By: #### L [id number] ####[facility] LABCLIA [id number] [place] [address] [place] SPEC GRAVITY,UR 1.027 Normal 1.003-1.035 [facility] Comment on above: Order Comment: Speci men Type: URINE SPECIMENOrdering Facility: [facility] Address: [address] [place] [address] Performed By: #### L [id number] ####[facility] LABCLIA [id number] [place] [address] [place] SPECIMEN VALIDITY QUALITY Specimen quality results within acceptable limits Normal [facility] Comment on above: Order Comment: Speci men Type: URINE SPECIMENOrdering Facility: [facility] Address: [address] [place] [address] Performed By: #### L [id number] ####[facility] LABCLIA [id number] [place] [address] [place] TOXICOLOGY SCREEN, ROUTINE U RINEon 01-08-2024 Amphetamines Confirm (U) [Mass/Vol] Negative Negative [facility] Comment on above: Cutoff threshold at 1000 ng/mL. Barbiturates Urine Negative Negative [facility] Comment on above: Cutoff threshold at 200 ng/mL. Benzodiazepines Urine Positive Abnormal Negative [facility] Comment on above: Cutoff threshold at 200 ng/mL. Cannabinoids Screen Ql (U) Positive Abnormal Negative [facility] Comment on above: Cutoff threshold at 50 ng/mL. Cocaine Ql (U) Negative Negative [facility] Comment on above: Cutoff threshold at 300 ng/mL. Ethanol (U) [Mass/Vol] mg/dL NINF - 11 mg/dL [facility] Interpretation and review of laboratory results Abnormal [facility] Opiates Screen Ql (U) Negative Negative [facility] Comment on above: Cutoff threshold at 300 ng/mL. oxyCODONE cutoff Screen (U) [Mass/Vol] Negative Negative [facility] Comment on above: Cutoff threshold at 100 ng/mL. Phencyclidine Ql (U) Negative Negative [facility] Comment on above: Cutoff threshold at 25 ng/mL. Immunoassay screen o nly. Cross reactivity with other substances can occur [...] on the same specimen through Client Services ([phone]) if contacted within 48 hours of initial testing. [1]Substance Abuse and Mental Health Services Administration (2012). Clinical Drug Testing in Primary Care Technical Assistance Publication Series 32. Department of Health and Human Services, [place], p.10. [facility] Amphetamines Confirm (U) [Mass/Vol] Negative Normal Negative [facility] Comment on above: Order Comment: Speci men Type: URINE SPECIMENOrdering Facility: [facility] Address: [address] [place] [address] Result Comment: Cuto ff threshold at 1000 ng/mL. Performed By: #### U TOX2 ####[facility] LABCLIA [id number] [place] [address] [place] BARBITURATES, URINE Negative Normal Negative [facility] Comment on above: Order Comment: Speci men Type: URINE SPECIMENOrdering Facility: [facility] Address: [address] [place] [address] Result Comment: Cuto ff threshold at 200 ng/mL. Performed By: #### U TOX2 ####[facility] LABCLIA [id number] [place] [address] [place] BENZODIAZEPINES, UR Positive Abnormal Negative [facility] Comment on above: Order Comment: Speci men Type: URINE SPECIMENOrdering Facility: [facility] Address: [address] [place] [address] Result Comment: Cuto ff threshold at 200 ng/mL. Performed By: #### U TOX2 ####[facility] LABCLIA [id number] [place] [address] [place] Cannabinoids Screen Ql (U) Positive Abnormal Negative [facility] Comment on above: Order Comment: Speci men Type: URINE SPECIMENOrdering Facility: [facility] Address: [address] [place] [address] Result Comment: Cuto ff threshold at 50 ng/mL. Performed By: #### U TOX2 ####[facility] LABCLIA [id number] [place] [address] [place] Cocaine Ql (U) Negative Normal Negative [facility] Comment on above: Order Comment: Speci men Type: URINE SPECIMENOrdering Facility: [facility] Address: [address] [place] [address] Result Comment: Cuto ff threshold at 300 ng/mL. Performed By: #### U TOX2 ####[facility] LABCLIA [id number] [place] [address] [place] Ethanol (U) [Mass/Vol] <11 Normal <11 [facility] Comment on above: Order Comment: Speci men Type: URINE SPECIMENOrdering Facility: [facility] Address: [address] [place] [address] Performed By: #### U TOX2 ####[facility] LABIA [id number] [place] [address] [place] Opiates Screen Ql (U) Negative Normal Negative [facility] Comment on above: Order Comment: Speci men Type: URINE SPECIMENOrdering Facility: [facility] Address: [address] [place] [address] Result Comment: Cuto ff threshold at 300 ng/mL. Performed By: #### U TOX2 ####[facility] LABIA [id number] [address] [place] oxyCODONE cutoff Screen (U) [Mass/Vol] Negative Normal Negative [facility] Comment on above: Order Comment: Speci men Type: URINE SPECIMENOrdering Facility: [facility] Address: [address] [place] [address] Result Comment: Cuto ff threshold at 100 ng/mL. Performed By: #### U TOX2 ####[facility] [id number] [address] [place] Phencyclidine Ql (U) Negative Normal Negative [facility] Comment on above: Order Comment: Speci men Type: URINE SPECIMENOrdering Facility: [facility] Address: [address] [place] [address] Result Comment: Cuto ff threshold at 25 ng/mL. 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 He gets 7-8 hrs of sleep per night Amitriptyline 10 mg helps with falling asleep PATIENT-ENTERED QUESTIONNAIRE SLEEP SCORES 12/11/2023 Sleep Questions R (more content not included)... Normal [facility] CNPNon 11-27-2023 CNPN Telephone (DMFPMN) -- KACEY BENTLEY ([id number]) 1960 M Date Time Provider Department 11/27/23 [facility] During your visit today, we recorded the following information about you: Von Conner 11/27/2023 3:15 PM Signed LVM for pt [...] Encounter Status:Closed by VON CONNER on 11/27/23 [facility] [place] 11-01-2023 FRANCISCO Telephone ([facility]) -- MCKACEY Ragsdale ([id number]) 1960 M Date Time Provider Department 11/01/23 MAUREEN SUE, JORGE JOHNSON During your visit today, we recorded the following information about you: Britney Greco RN 11/01/2023 9:41 AM Signed Received voicemail 10-31-23 at 12:57 PM. Good afternoon my name is Jonathan Bentley. Calling for my Kacey Bentley. Birthday [birth year]. If you could please call me back at [phone]. I would appreciate it. He has started taking the medicine but he is still having some turbulent dreams and I'd like to talk to you about it. Thank you very much and have a good day." Call to patient's . No answer. Left [...] Saul Colmenares CNP in 4 weeks in [place]. At that time will need UDS and urine benzo confirm (annual lab). Would also try to stop Amitriptyline at that time if no contraindications." Britney Greco RN 11/01/2023 11:04 AM Signed Received call from patient's . She reports that everything has blown up at his work" He is working 12 hour shifts, 7 days a week. He currently works [employer]. 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 She reports he may stay on nights though because they just fired someone and he is covering those shifts. Virtual appointments have been missed. During the time he ran out of [employer], he had episodes of falling out of bed and extreme dreams. He has been back on the [employer] as of 10-25-23. He is jumping out of bed, not knowing where he is. Going detention around the bedroom and is falling near the window which wakes up and startles her. When he wasn't on the [employer], she has heard him downstairs on the floor. He wakes up and doesn't know what he is doing but he does "snap out of it" and remember the episodes. He just can't [...] Left voicemail requesting she call the [facility] to schedule in-office visit with any sleep [...] 1 capsule (more content not included)... Normal [facility] [place] 10-25-2023 FRANCISCO Telephone (SATYA) -- KACEY BENTLEY ([id number]) 1960 M Date Time Provider Department 10/25/23 JORGE REDDY [...] by: Isadora Brown OD - Fully Assessed Visit Diagnoses:PLMD (periodic [...] Encounter Status:Closed by JORGE REDDY on 10/25/23 [facility]PT[facility] 05-22-2023 ALT [Catalytic activity/Vol] 7 U/L Low 10 - 54 U/L [facility] Cholesterol in LDL Direct as say [Mass/Vol]on 05-22-2023 Cholesterol in LDL [Mass/Vol] 100 mg/dL High <100 mg/dL [facility] LIPOPROTEIN (A)on 05-22-2023 Lipoprotein a [Mass/Vol] 13 mg/dL <30 mg/dL [facility] Basic metabolic 2000 panelon 03-30-2023 Anion gap [Moles/Vol] 7 mmol/L Low 9 - 18 mmol/L [facility] Calcium [Mass/Vol] 9.4 mg/dL 8.5 - 10. 2 mg/dL [facility] Chloride [Moles/Vol] 104 mmol/L 97 - 10 5 mmol/L [facility] CO2 [Moles/Vol] 28 mmol/L 22 - 30 mmol/L [facility] Creatinine [Mass/Vol] 1.07 mg/dL 0.73 - 1.22 mg/dL [facility] Estimated Glomerular Filtration Rate 77 mL/min/1.73m >=60 mL/min/1.73 m [facility] Glucose [Mass/Vol] 80 mg/dL 74 - 99 mg/dL [facility] Potassium [Moles/Vol] 4.8 mmol/L 3.7 - 5.1 mmol/L [facility] Sodium [Moles/Vol] 139 mmol/L 136 - 144 mmol/L [facility] Urea nitrogen [Mass/Vol] 11 mg/dL 9 - 24 mg/dL [facility] T3 FREE BLDon 03-30-2023 Free T3 [Mass/Vol] 2.6 pg/mL 2.3 - 4.1 pg/mL [facility] T4 FREE/FREE THYROXon 2023 Free T4 [Mass/Vol] 0.9 ng/dL 0.9 - 1.7 ng/dL [facility] TSH BLDon 03-30-2023 TSH Qn 2.230 m[IU]/L 0.270 - 4.200 mIU/L [facility] VITAMIN B12 BLOODon 03-30-19 Cobalamin (Vitamin B12) [Mass/Vol] 544 pg/mL 232 - 1,245 pg/mL [facility] CBC W Auto Differential pane l (Bld)on 03-29-2023 Basophils (Bld) [#/Vol] 0.04 10*3/uL <0.11 k/uL [facility] Basophils/100 WBC (Bld) 0.5 % [facility] Differential cell count method Nom (Bld) Auto [facility] Eosinophils (Bld) [#/Vol] 0.23 10*3/uL <0.46 k/uL [facility] Eosinophils/100 WBC (Bld) 3.1 % [facility] Erythrocyte distribution width (RBC) [Ratio] 11.9 % 11.5 - 15.0 % [facility] Hematocrit (Bld) [Volume fraction] 42.5 % 39.0 - 51.0 % [facility] Hemoglobin (Bld) [Mass/Vol] 14.3 g/dL 13.0 - 17.0 g/dL [facility] Immature granulocytes (Bld) [#/Vol] <0.10 k/uL [facility] Immature granulocytes/100 WBC (Bld) 0.1 % [facility] Lymphocytes (Bld) [#/Vol] 2.05 10*3/uL 1.00 - 4.00 k/uL [facility] Lymphocytes/100 WBC (Bld) 27.6 % [facility] MCH (RBC) [Entitic mass] 31.6 pg 26.0 - 34.0 pg [facility] MCHC (RBC) [Mass/Vol] 33.6 g/dL 30.5 - 36.0 g/dL [facility] MCV (RBC) [Entitic vol] 94.0 fL 80.0 - 100.0 fL [facility] Monocytes (Bld) [#/Vol] 0.77 10*3/uL <0.87 k/uL [facility] Monocytes/100 WBC (Bld) 10.4 % [facility] Neutrophils (Bld) [#/Vol] 4.32 10*3/uL 1.45 - 7.50 k/uL [facility] Neutrophils/100 WBC (Bld) 58.3 % [facility] Nucleated RBC (Bld) [#/Vol] <0.01 k/uL [facility] Nucleated RBC/100 WBC (Bld) [Ratio] 0.0 /100 WBC [facility] Platelet mean volume (Bld) [Entitic vol] 10.2 fL 9.0 - 12.7 fL [facility] Platelets (Bld) [#/Vol] 179 10*3/uL 150 - 400 k/uL [facility] RBC (Bld) [#/Vol] 4.52 10*6/uL 4.20 - 6.0 0 m/uL [facility] WBC (Bld) [#/Vol] 7.42 10*3/uL 3.70 - 11.00 k/uL [facility] Absolute lymphocyte countOrd ered By: Brett Marcus on 09-17-2022 Lymphocytes Auto (Unsp spec) [#/Vol] 2.24 10*3/uL 0.83-4.51 [facility] Basophil percentageOrdered B y: Brett Marcus on 09-17-2022 Basophils/100 WBC (Bld) 0.5 % 0-1 [facility] Chloride [Moles/Vol] 107 mmol/L 98-107 [facility] Eosinophils/100 WBC (Bld) 3.0 % 0-5 [facility] Glucose [Mass/Vol] 97 mg/dL 74-106 [facility] Neutrophils (Bld) [#/Vol] 3.6 10*3/uL 2.0-7.7 [facility] Neutrophils/100 WBC (Bld) 54.5 % 47-70 [facility] Potassium [Moles/Vol] 4.0 mmol/L 3.5-5.1 [facility] Sodium [Moles/Vol] 141 mmol/L 136-145 [facility] WBC (Bld) [#/Vol] 6.6 10*3/uL 4.4-11.0 [facility] Blood erythrocytes count (nu mber/volume)Ordered By: Brett Marcus on 09-17-2022 RBC (Bld) [#/Vol] 4.49 10*6/uL 4.6-6.2 [facility] Blood hemoglobin measurement (mass/volume)Ordered By: Brett Marcus on 09-17-2022 Hemoglobin (Bld) [Mass/Vol] 14.3 g/dL 13.0-16.5 [facility] Blood lymphocytes/100 leukoc ytesOrdered By: Brett Marcus on 09-17-2022 Lymphocytes/100 WBC (Bld) 33.7 % 19-41 [facility] Blood monocytes/100 leukocyt esOrdered By: Brett Marcus on 09-17-2022 Monocytes/100 WBC (Bld) 8.0 % 0-10 [facility] Blood platelet mean volumeOr dered By: Brett Marcus on 09-17-2022 Platelet mean volume (Bld) [Entitic vol] 10.1 fL 6.2-12.0 [facility] Determination of erythrocyte mean corpuscular volume (MCV)Ordered By: Brett Marcus on 09-17-2022 MCV (RBC) [Entitic vol] 94.4 fL 80-94 [facility] Hematocrit Auto (Bld) [Volum e fraction]Ordered By: Brett Marcus on 09-17-2022 Hematocrit (Bld) [Volume fraction] 42.4 % 40-54 [facility] Laboratory - Chemistry and C hemistry - challengeOrdered By: Brett Marcus on 09-17-2022 CO2 [Moles/Vol] 28.0 mmol/L 21.0-32.0 [facility] Urea nitrogen/Creatinine [Mass ratio] 12.9 mg/mg 10-20 [facility] Laboratory - Hematology and Cell countsOrdered By: Brett Marcus on 09-17-2022 Erythrocyte distribution width (RBC) [Entitic vol] 40.8 fL 35.1-43.9 [facility] Erythrocyte distribution width (RBC) [Ratio] 11.8 % 11.6-14.6 [facility] Immature granulocytes/100 WBC (Bld) 0.300 % 0.0-0.9 [facility] Comment on above: IG% - Immature Granu locytes (promyelocytes, myelocytes and metamyelocytes) > 1% indicates that a LEFT SHIFT is Present. MCH (RBC) [Entitic mass] 31.8 pg 27.0-32.0 [facility] Nucleated RBC/100 WBC (Bld) [Ratio] 0 % 0-5 [facility] MCHC Auto (RBC) [Mass/Vol]Or dered By: Brett Marcus on 09-17-2022 MCHC (RBC) [Mass/Vol] 33.7 g/dL 32-36 [facility] No Panel InformationOrdered By: Brett Marcus on 09-17-2022 Estimated Creatinine Clearance Calc 68.52 ml/min [facility] Estimated GFR (MDRD) Amer 81 mL/min >60 [facility] Comment on above: GFR Calc Estimated GFR (MDRD) Non-Af Amer 67 mL/min >60 [facility] Comment on above: Non- GFR Calc Ethyl Alcohol Level 127.0 mg/dL [facility] Comment on above: The serum:whole bloo d ethanol ratio is approximately 1.14and varies slightly with hematocrit. Medical Alcohol reference interval and critical value innon-tolerant individuals; 50 - 100 Impairment 100 Intoxication 100 - 250 Severe Poisoning 250 - 400 Deep/possible fatal coma Platelets bldOrdered By: Jose dunbarrian Amrit on 09-17-2022 Platelets (Bld) [#/Vol] 166 10*3/uL 150-450 [facility] Serum or plasma calcium manuel urement (mass/volume)Ordered By: Brett Marcus on 09-17-2022 Calcium [Mass/Vol] 8.9 mg/dL 8.5-10.1 [facility] Serum or plasma creatinine m easurement (mass/volume)Ordered By: Brett Marcus on 09-17-2022 Creatinine [Mass/Vol] 1.16 mg/dL 0.70-1.30 [facility] Comment on above: The validity of the calculated GFR & GFRAA in patients over 70 years has not been determined. Clinical correlation is essential. Serum or plasma urea nitroge n measurement (mass/volume)Ordered By: Brett Marcus on 09-17-2022 Urea nitrogen [Mass/Vol] 15 mg/dL 7-18 [facility] Thin prep Papanicolaou smear with manual screeningOrdered By: Brett Marcus on 09-17-2022 Thin prep Papanicolaou smear with manual screening 6 5-15 [facility] Absolute lymphocyte countOrd ered By: Zulay Sanz on 09-05-2022 Lymphocytes Auto (Unsp spec) [#/Vol] 1.92 10*3/uL 0.83-4.51 [facility] Basophil percentageOrdered B y: Zulay Sanz on 09-05-2022 Basophil percentage 0-5 SEEN /hpf 0-[address] [facility] Basophils/100 WBC (Bld) 0.6 % 0-1 [facility] Chloride [Moles/Vol] 108 mmol/L 98-107 [facility] Eosinophils/100 WBC (Bld) 1.4 % 0-5 [facility] Glucose [Mass/Vol] 92 mg/dL 74-106 [facility] Neutrophils (Bld) [#/Vol] 3.8 10*3/uL 2.0-7.7 [facility] Neutrophils/100 WBC (Bld) 58.8 % 47-70 [facility] Potassium [Moles/Vol] 3.3 mmol/L 3.5-5.1 [facility] Sodium [Moles/Vol] 140 mmol/L 136-145 [facility] WBC (Bld) [#/Vol] 6.5 10*3/uL 4.4-11.0 [facility] Bilirubin Test strip Ql (U)O rdered By: Zulay Sanz on 09-05-2022 Bilirubin Ql (U) Negative Negative [facility] Blood erythrocytes count (nu mber/volume)Ordered By: Zulay Sanz on 09-05-2022 RBC (Bld) [#/Vol] 4.72 10*6/uL 4.6-6.2 [facility] Blood hemoglobin measurement (mass/volume)Ordered By: Zulay Sanz on 09-05-2022 Hemoglobin (Bld) [Mass/Vol] 15.0 g/dL 13.0-16.5 [facility] Blood lymphocytes/100 leukoc ytesOrdered By: Zulay Sanz on 09-05-2022 Lymphocytes/100 WBC (Bld) 29.6 % 19-41 [facility] Blood monocytes/100 leukocyt esOrdered By: Zulay Sanz on 09-05-2022 Monocytes/100 WBC (Bld) 9.4 % 0-10 [facility] Blood platelet mean volumeOr dered By: Zulay Sanz on 09-05-2022 Platelet mean volume (Bld) [Entitic vol] 10.1 fL 6.2-12.0 [facility] Determination of erythrocyte mean corpuscular volume (MCV)Ordered By: Zulay Sanz on 09-05-2022 MCV (RBC) [Entitic vol] 94.5 fL 80-94 [facility] Hematocrit Auto (Bld) [Volum e fraction]Ordered By: Zulay Sanz on 09-05-2022 Hematocrit (Bld) [Volume fraction] 44.6 % 40-54 [facility] Ketones Test strip Ql (U)Ord ered By: Zulay Sanz on 09-05-2022 Ketones Ql (U) Negative Negative [facility] Laboratory - Chemistry and C hemistry - challengeOrdered By: Zulay Sanz on 09-05-2022 CO2 [Moles/Vol] 28.0 mmol/L 21.0-32.0 [facility] Urea nitrogen/Creatinine [Mass ratio] 16.7 mg/mg 10-20 [facility] Laboratory - Hematology and Cell countsOrdered By: Zulay Sanz on 09-05-2022 Erythrocyte distribution width (RBC) [Entitic vol] 40.8 fL 35.1-43.9 [facility] Erythrocyte distribution width (RBC) [Ratio] 11.8 % 11.6-14.6 [facility] Immature granulocytes/100 WBC (Bld) 0.200 % 0.0-0.9 [facility] Comment on above: IG% - Immature Granu locytes (promyelocytes, myelocytes and metamyelocytes) > 1% indicates that a LEFT SHIFT is Present. MCH (RBC) [Entitic mass] 31.8 pg 27.0-32.0 [facility] Nucleated RBC/100 WBC (Bld) [Ratio] 0 % 0-5 [facility] MCHC Auto (RBC) [Mass/Vol]Or dered By: Zulay Sanz on 09-05-2022 MCHC (RBC) [Mass/Vol] 33.6 g/dL 32-36 [facility] Mucus LM Ql (Urine sed)Order ed By: Zulay Sanz on 09-05-2022 Mucus Ql (Urine sed) 0 SEEN /hpf [facility] Nitrite Test strip Ql (U)Ord ered By: Zulay Sanz on 09-05-2022 Nitrite Ql (U) Negative Negative [facility] No Panel InformationOrdered By: Zulay Sanz on 09-05-2022 Estimated Creatinine Clearance Calc 73.60 ml/min [facility] Estimated GFR (MDRD) Amer 88 mL/min >60 [facility] Comment on above: GFR Calc Estimated GFR (MDRD) Non-Af Amer 73 mL/min >60 [facility] Comment on above: Non- GFR Calc Platelets bldOrdered By: Trina Sanz on 09-05-2022 Platelets (Bld) [#/Vol] 157 10*3/uL 150-450 [facility] Protein Test strip Ql (U)Ord ered By: Zulay Sanz on 09-05-2022 Protein Ql (U) 15 mg/dl Negative [facility] Respiratory pathogens detect ion panel by molecular detection methodOrdered By: Zulay Sanz on 09-05-2022 Respiratory pathogens DNA and RNA panel ALMAS+probe (Resp) [facility] Serum or plasma calcium manuel urement (mass/volume)Ordered By: Zulay Sanz on 09-05-2022 Calcium [Mass/Vol] 9.1 mg/dL 8.5-10.1 [facility] Serum or plasma creatinine m easurement (mass/volume)Ordered By: Zulay Sanz on 09-05-2022 Creatinine [Mass/Vol] 1.08 mg/dL 0.70-1.30 [facility] Comment on above: The validity of the calculated GFR & GFRAA in patients over 70 years has not been determined. Clinical correlation is essential. Serum or plasma urea nitroge n measurement (mass/volume)Ordered By: Zulay Sanz on 09-05-2022 Urea nitrogen [Mass/Vol] 18 mg/dL 7-18 [facility] Squamous epithelial cells de tection in urine sediment by light microscopyOrdered By: Zulay Sanz on 09-05-2022 Epithelial cells.squamous LM Ql (Urine sed) 0-5 SEEN /hpf 0-5 [facility] Thin prep Papanicolaou smear with manual screeningOrdered By: Zulay Sanz on 09-05-2022 Thin prep Papanicolaou smear with manual screening 4 5-15 [facility] Urine blood detectionOrdered By: Zulay Sanz on 09-05-2022 RBC Ql (U) 10 /ul Negative [facility] RBC Ql (U) 0-5 SEEN /hpf 0-5 [facility] Urine clarityOrdered By: Trina Sanz on 09-05-2022 Clarity (U) Clear Clear [facility] Urine color determinationOrd ered By: Zulay Sanz on 09-05-2022 Color (U) Yellow Yellow [facility] Urine glucose detectionOrder ed By: Zulay Sanz on 09-05-2022 Glucose Ql (U) Normal mg/dl Normal [facility] Urine leukocyte esterase det ection by dipstickOrdered By: Zulay Sanz on 09-05-2022 Leukocyte esterase Test strip Ql (U) 25 /ul Negative [facility] Urine pHOrdered By: Zulay Sanz on 09-05-2022 pH (U) 7.0 [pH] 5.0 - 8.0 [facility] Urine sediment bacteria coun t by microscopy (number/high power field)Ordered By: Zulay Sanz on 09-05-2022 Bacteria LM.HPF (Urine sed) [#/Area] 0 /[HPF] None Seen [facility] Urine specific gravity measu rementOrdered By: Zulay Sanz on 09-05-2022 Specific gravity (U) [Rel density] 1.010 1.002-1.030 [facility] Urobilinogen Auto test strip Ql (U)Ordered By: Zulay Sanz on 09-05-2022 Urobilinogen Ql (U) Normal mg/dl Normal [facility] EGD - THERAPEUTIC, EUS, OR T UBE INTERVENTIONSon 12-28-2021 [facility] US THYROID/PARATHYROIDon [facility] Absolute lymphocyte counton 09-27-2021 Lymphocytes Auto (Unsp spec) [#/Vol] 1.82 10*3/uL 0.83-4.51 [facility] Work Phone: Basophil percentageon 2021 Basophils/100 WBC (Bld) 0.3 % 0-1 [facility] Work Phone: Chloride [Moles/Vol] 105 mmol/L 98-107 [facility] Work Phone: Eosinophils/100 WBC (Bld) 5.3 % 0-5 [facility] Work Phone: Glucose [Mass/Vol] 106 mg/dL 74-106 [facility] Work Phone: Comment on above: Fasting Glucose resu lt from 100 to 125 mg/dL suggests IMPAIRED HOMEOSTASIS per A.D.A. criteria. Neutrophils (Bld) [#/Vol] 3.2 10*3/uL 2.0-7.7 [facility] Work Phone: Neutrophils/100 WBC (Bld) 53.2 % 47-70 [facility] Work Phone: Potassium [Moles/Vol] 4.0 mmol/L 3.5-5.1 [facility] Work Phone: Sodium [Moles/Vol] 138 mmol/L 136-145 [facility] Work Phone: [phone] WBC (Bld) [#/Vol] 6.0 10*3/uL 4.4-11.0 [facility] Work Phone: Blood erythrocytes count (nu mber/volume)on 09-27-2021 RBC (Bld) [#/Vol] 4.19 10*6/uL 4.6-6.2 [facility] Work Phone: Blood hemoglobin measurement (mass/volume)on 09-27-2021 Hemoglobin (Bld) [Mass/Vol] 13.6 g/dL 13.0-16.5 [facility] Work Phone: Blood lymphocytes/100 leukoc yteson 09-27-2021 Lymphocytes/100 WBC (Bld) 30.2 % 19-41 [facility] Work Phone: [phone] Blood monocytes/100 leukocyt eson 09-27-2021 Monocytes/100 WBC (Bld) 10.8 % 0-10 [facility] Work Phone: Blood platelet mean volumeon 09-27-2021 Platelet mean volume (Bld) [Entitic vol] 10.0 fL 6.2-12.0 [facility] Work Phone: Determination of erythrocyte mean corpuscular volume (MCV)on 09-27-2021 MCV (RBC) [Entitic vol] 95.0 fL 80-94 [facility] Work Phone: Hematocrit Auto (Bld) [Volum e fraction]on 09-27-2021 Hematocrit (Bld) [Volume fraction] 39.8 % 40-54 [facility] Work Phone: Laboratory - Chemistry and C hemistry - challengeon 09-27-2021 CO2 [Moles/Vol] 29.0 mmol/L 21.0-32.0 [facility] Work Phone: Urea nitrogen/Creatinine [Mass ratio] 19.3 mg/mg 10-20 [facility] Work Phone: Laboratory - Hematology and Cell countson 09-27-2021 Erythrocyte distribution width (RBC) [Entitic vol] 40.8 fL 35.1-43.9 [facility] Work Phone: Erythrocyte distribution width (RBC) [Ratio] 11.8 % 11.6-14.6 [facility] Work Phone: Immature granulocytes/100 WBC (Bld) 0.200 % 0.0-0.9 [facility] Work Phone: Comment on above: IG% - Immature Granu locytes (promyelocytes, myelocytes and metamyelocytes) > 1% indicates that a LEFT SHIFT is Present. MCH (RBC) [Entitic mass] 32.5 pg 27.0-32.0 [facility] Work Phone: Nucleated RBC/100 WBC (Bld) [Ratio] 0 % 0-5 [facility] Work Phone: MCHC Auto (RBC) [Mass/Vol]on 09-27-2021 MCHC (RBC) [Mass/Vol] 34.2 g/dL 32-36 [facility] Work Phone: No Panel Informationon 09-27 Estimated Creatinine Clearance Calc 86.59 ml/min [facility] Work Phone: Estimated GFR (MDRD) Amer 105 mL/min >60 [facility] Work Phone: Comment on above: GFR Calc Estimated GFR (MDRD) Non-Af Amer 87 mL/min >60 [facility] Work Phone: Comment on above: Non- GFR Calc Platelets bldon 09-27-2021 Platelets (Bld) [#/Vol] 138 10*3/uL 150-450 [facility] Work Phone: Serum or plasma calcium manuel urement (mass/volume)on 09-27-2021 Calcium [Mass/Vol] 8.5 mg/dL 8.5-10.1 [facility] Work Phone: Serum or plasma creatinine m easurement (mass/volume)on 09-27-2021 Creatinine [Mass/Vol] 0.93 mg/dL 0.70-1.30 [facility] Work Phone: Comment on above: The validity of the calculated GFR & GFRAA in patients over 70 years has not been determined. Clinical correlation is essential. Serum or plasma urea nitroge n measurement (mass/volume)on 09-27-2021 Urea nitrogen [Mass/Vol] 18 mg/dL 7-18 [facility] Work Phone: Thin prep Papanicolaou smear with manual screeningon 09-27-2021 Thin prep Papanicolaou smear with manual screening 4 5-15 [facility] Work Phone: Basophil percentageon 2021 Bilirubin [Mass/Vol] 0.50 mg/dL 0.20-1.00 [facility] Work Phone: Comment on above: For patients on eltr ombopag therapy, use of Dimension [place] TBIL is not recommended. Protein [Mass/Vol] 6.3 g/dL 6.4-8.2 [facility] Work Phone: Laboratory - Chemistry and C hemistry - challengeon 09-26-2021 ALP [Catalytic activity/Vol] 48 U/L 45-117 [facility] Work Phone: ALT [Catalytic activity/Vol] 12 U/L 16-61 [facility] Work Phone: Globulin (S) [Mass/Vol] 2.9 g/dL 2.2-4.2 [facility] Work Phone: Serum or plasma albumin manuel urement (mass/volume)on 09-26-2021 Albumin [Mass/Vol] 3.4 g/dL 3.2-5.0 [facility] Work Phone: Serum or plasma albumin/glob ulin mass ratioon 09-26-2021 Albumin/Globulin [Mass ratio] 1.2 {ratio} 0.9-2.4 [facility] Work Phone: Thin prep Papanicolaou smear with manual screeningon 09-26-2021 Thin prep Papanicolaou smear with manual screening 21 U/L 15-37 [facility] Work Phone: Absolute lymphocyte counton 09-25-2021 Lymphocytes Auto (Unsp spec) [#/Vol] 1.99 10*3/uL 0.83-4.51 [facility] Work Phone: Basophil percentageon 2021 Basophils/100 WBC (Bld) 0.4 % 0-1 [facility] Work Phone: Chloride [Moles/Vol] 108 mmol/L 98-107 [facility] Work Phone: Eosinophils/100 WBC (Bld) 3.9 % 0-5 [facility] Work Phone: [phone] Glucose [Mass/Vol] 112 mg/dL 74-106 [facility] Work Phone: Comment on above: Fasting Glucose resu lt from 100 to 125 mg/dL suggests IMPAIRED HOMEOSTASIS per A.D.A. criteria. Neutrophils (Bld) [#/Vol] 3.7 10*3/uL 2.0-7.7 [facility] Work Phone: [phone] Neutrophils/100 WBC (Bld) 55.1 % 47-70 [facility] Work Phone: Potassium [Moles/Vol] 3.8 mmol/L 3.5-5.1 [facility] Work Phone: Sodium [Moles/Vol] 139 mmol/L 136-145 [facility] Work Phone: WBC (Bld) [#/Vol] 6.7 10*3/uL 4.4-11.0 [facility] Work Phone: Blood erythrocytes count (nu mber/volume)on 09-25-2021 RBC (Bld) [#/Vol] 4.18 10*6/uL 4.6-6.2 [facility] Work Phone: Blood hemoglobin measurement (mass/volume)on 09-25-2021 Hemoglobin (Bld) [Mass/Vol] 13.6 g/dL 13.0-16.5 [facility] Work Phone: Blood lymphocytes/100 leukoc yteson 09-25-2021 Lymphocytes/100 WBC (Bld) 29.7 % 19-41 [facility] Work Phone: Blood monocytes/100 leukocyt eson 09-25-2021 Monocytes/100 WBC (Bld) 10.6 % 0-10 [facility] Work Phone: Blood platelet mean volumeon 09-25-2021 Platelet mean volume (Bld) [Entitic vol] 10.1 fL 6.2-12.0 [facility] Work Phone: Determination of erythrocyte mean corpuscular volume (MCV)on 09-25-2021 MCV (RBC) [Entitic vol] 94.5 fL 80-94 [facility] Work Phone: Erythrocyte sedimentation ra chuck 09-25-2021 ESR (Bld) [Velocity] 8 mm/h 0-20 [facility] Work Phone: Hematocrit Auto (Bld) [Volum e fraction]on 09-25-2021 Hematocrit (Bld) [Volume fraction] 39.5 % 40-54 [facility] Work Phone: Laboratory - Chemistry and C hemistry - challengeon 09-25-2021 CK [Catalytic activity/Vol] 263 U/L 39-308 [facility] Work Phone: CO2 [Moles/Vol] 25.0 mmol/L 21.0-32.0 [facility] Work Phone: Urea nitrogen/Creatinine [Mass ratio] 18.3 mg/mg 10-20 [facility] Work Phone: Laboratory - Hematology and Cell countson 09-25-2021 Erythrocyte distribution width (RBC) [Entitic vol] 40.6 fL 35.1-43.9 [facility] Work Phone: Erythrocyte distribution width (RBC) [Ratio] 11.7 % 11.6-14.6 [facility] Work Phone: Immature granulocytes/100 WBC (Bld) 0.300 % 0.0-0.9 [facility] Work Phone: Comment on above: IG% - Immature Granu locytes (promyelocytes, myelocytes and metamyelocytes) > 1% indicates that a LEFT SHIFT is Present. MCH (RBC) [Entitic mass] 32.5 pg 27.0-32.0 [facility] Work Phone: Nucleated RBC/100 WBC (Bld) [Ratio] 0 % 0-5 [facility] Work Phone: MCHC Auto (RBC) [Mass/Vol]on 09-25-2021 MCHC (RBC) [Mass/Vol] 34.4 g/dL 32-36 [facility] Work Phone: No Panel Informationon 09-25 Estimated Creatinine Clearance Calc 63.91 ml/min [facility] Work Phone: Estimated GFR (MDRD) Amer 74 mL/min >60 [facility] Work Phone: Comment on above: GFR Calc Estimated GFR (MDRD) Non-Af Amer 61 mL/min >60 [facility] Work Phone: Comment on above: Non- GFR Calc Platelets bldon 09-25-2021 Platelets (Bld) [#/Vol] 153 10*3/uL 150-450 [facility] Work Phone: Serum or plasma C reactive p rotein measurement (mass/volume)on 09-25-2021 CRP [Mass/Vol] 25.60 mg/L 0.0-3.0 [facility] Work Phone: Comment on above: C-Reactive Protein ( CRP) provides useful information for thediagnosis, therapy and monitoring of inflammatory processesand associated diseases. For the evaluation of Relative Riskfor Cardiovascular Disease, a High Sensitivity CRP (HSCRP)should be ordered. Serum or plasma calcium manuel urement (mass/volume)on 09-25-2021 Calcium [Mass/Vol] 9.1 mg/dL 8.5-10.1 [facility] Work Phone: Serum or plasma creatinine m easurement (mass/volume)on 09-25-2021 Creatinine [Mass/Vol] 1.26 mg/dL 0.70-1.30 [facility] Work Phone: Comment on above: The validity of the calculated GFR & GFRAA in patients over 70 years has not been determined. Clinical correlation is essential. Serum or plasma urea nitroge n measurement (mass/volume)on 09-25-2021 Urea nitrogen [Mass/Vol] 23 mg/dL 7-18 [facility] Work Phone: Thin prep Papanicolaou smear with manual screeningon 09-25-2021 Thin prep Papanicolaou smear with manual screening 6 5-15 [facility] Work Phone: XR Chest PA and Lateralon IMPRESSION: No acute radiographic abnormality. Visiting Teacher: PSCB Transcribe Date/Time: Feb 28 2020 4:34P Dictated by : LEONA WYATT MD This examination was interpreted and the report reviewed and electronically signed by: LEONA WYATT MD on Feb 28 2020 4:34PM [facility] DIVISION OF RADIOLOGY * * *Final Report* [...] soft tissues: Unremarkable. DIVISION OF RADIOLOGY Provider, [facility] - 02/28/2020 * * *Final Report* * [...] Unremarkable. IMPRESSION IMPRESSION: No acute radiographic abnormality. Visiting Teacher: DEMIAN Transcribe Date/Time: Feb 28 2020 4:34P Dictated by : LEONA WYATT MD This examination was interpreted and the report reviewed and electronically signed by: LEONA WYATT MD on Feb 28 2020 4:34PM EST [facility] Radiology Study observation (narrative) [facility] XR Chest PA and LateralOrder ed By: Ccf Provider on 02-28-2020 [facility] Vital Signs Date Time Vital Sign Value Performing Clinician Facility 08-20-2024 08:26-0400 Body height 182.2 cm Clarisse Cee PA-C Work Phone: [facility] 08-20-2024 08:26-0400 Body mass index (BMI) [Ratio] 25.4 kg/m2 Clarisse Cee PA-C Work Phone: [facility] 08-20-2024 08:26-0400 Body temperature 97.81 [degF] Clarisse Cee PA-C Work Phone: [facility] 08-20-2024 08:26-0400 Body weight 84.37 kg Clarisse Cee PA-C Work Phone: [facility] 08-20-2024 08:26-0400 Diastolic blood pressure 70 mm[Hg] Clarisse Cee PA-C Work Phone: [facility] 08-20-2024 08:26-0400 Heart rate 76 /min Clarisse Cee PA-C Work Phone: [facility] 08-20-2024 08:26-0400 Respiratory rate 14 /min Clarisse Cee PA-C Work Phone: [facility] 08-20-2024 08:26-0400 SaO2% (BldA) [Mass fraction] 97 % Clarisse Cee PA-C Work Phone: [facility] 08-20-2024 08:26-0400 Systolic blood pressure 112 mm[Hg] Clarisse Cee PA-C Work Phone: [facility] 08-18-2024 22:55-0400 Body temperature 98.6 [degF] Dr. Jules Haynes DO Work Phone: [facility] 08-18-2024 22:55-0400 Diastolic blood pressure 70 mm[Hg] Dr. Jules Haynes DO Work Phone: [facility] 08-18-2024 22:55-0400 Heart rate 78 /min Dr. Jules Haynes DO Work Phone: [facility] 08-18-2024 22:55-0400 Respiratory rate 18 /min Dr. Jules Haynes DO Work Phone: [facility] 08-18-2024 22:55-0400 SaO2% (BldA) [Mass fraction] 98 % Dr. Jules Haynes DO Work Phone: [facility] 08-18-2024 22:55-0400 Systolic blood pressure 128 mm[Hg] Dr. Jules Haynes DO Work Phone: [facility] 08-18-2024 20:09-0400 Body height 182.[address] Jules Haynes DO Work Phone: [facility] 08-18-2024 20:09-0400 Body mass index (BMI) [Ratio] 25 kg/m2 Dr. Jules Haynes DO Work Phone: [facility] 08-18-2024 20:09-0400 Body weight 83.[address] Jules Haynes DO Work Phone: [facility] 08-12-2024 13:25-0400 Body mass index (BMI) [Ratio] 25.94 kg/m2 Sushant Darrian DENTAL THERAPIST.MANAGER MEDICARE Work Phone: [facility] 08-12-2024 13:25-0400 Body weight 84.37 kg Sushant Darrian DENTAL THERAPIST.MANAGER MEDICARE Work Phone: [facility] 08-12-2024 13:25-0400 Diastolic blood pressure 64 mm[Hg] Sushant Darrian DENTAL THERAPIST.MANAGER MEDICARE Work Phone: [facility] 08-12-2024 13:25-0400 Heart rate 98 /min Sushant Darrian DENTAL THERAPIST.MANAGER MEDICARE Work Phone: [facility] 08-12-2024 13:25-0400 Respiratory rate 16 /min Sushant Darrian DENTAL THERAPIST.MANAGER MEDICARE Work Phone: [facility] 08-12-2024 13:25-0400 SaO2% (BldA) [Mass fraction] 97 % Sushant Darrian DENTAL THERAPIST.MANAGER MEDICARE Work Phone: [facility] 08-12-2024 13:25-0400 Systolic blood pressure 94 mm[Hg] Sushant Darrian DENTAL THERAPIST.MANAGER MEDICARE Work Phone: [facility] 08-04-2024 14:20-0400 Body mass index (BMI) [Ratio] 26.35 kg/m2 Kenji Clutter PA-C Work Phone: [facility] 08-04-2024 14:20-0400 Body weight 85.7 kg Kenji Clutter PA-C Work Phone: [facility] 08-04-2024 14:20-0400 Diastolic blood pressure 78 mm[Hg] Kenji Clutter PA-C Work Phone: [facility] 08-04-2024 14:20-0400 Heart rate 70 /min Kenji Clutter PA-C Work Phone: [facility] 08-04-2024 14:20-0400 Respiratory rate 16 /min Kenji Clutter PA-C Work Phone: [facility] 08-04-2024 14:20-0400 SaO2% (BldA) [Mass fraction] 97 % Kenji Clutter PA-C Work Phone: [facility] 08-04-2024 14:20-0400 Systolic blood pressure 137 mm[Hg] Kenji Clutter PA-C Work Phone: [facility] 03-25-2024 08:29-0500 Body mass index (BMI) [Ratio] 27.75 kg/m2 Jules Haynes DO Work Phone: [facility] 03-25-2024 08:29-0500 Body temperature 97.59 [degF] Jules Haynes DO Work Phone: [facility] 03-25-2024 08:29-0500 Body weight 90.27 kg Jules Haynes DO Work Phone: [facility] 03-25-2024 08:29-0500 Diastolic blood pressure 80 mm[Hg] Jules Haynes DO Work Phone: [facility] 03-25-2024 08:29-0500 Heart rate 76 /min Jules Haynes DO Work Phone: [facility] 03-25-2024 08:29-0500 Respiratory rate 16 /min Jules Haynes DO Work Phone: [facility] 03-25-2024 08:29-0500 Systolic blood pressure 124 mm[Hg] Jules Haynes DO Work Phone: [facility] 01-08-2024 10:47-0500 Body mass index (BMI) [Ratio] 28.4 kg/m2 Jorge Reddy Jr., MD Work Phone: [facility] 01-08-2024 10:47-0500 Body weight 92.35 kg Jorge Reddy Jr., MD Work Phone: [facility] 01-08-2024 10:47-0500 Diastolic blood pressure 77 mm[Hg] Jorge Reddy Jr., MD Work Phone: [facility] 01-08-2024 10:47-0500 Heart rate 87 /min Jorge Reddy Jr., MD Work Phone: [facility] 01-08-2024 10:47-0500 SaO2% (BldA) [Mass fraction] 99 % Jorge Reddy Jr., MD Work Phone: [facility] 01-08-2024 10:47-0500 Systolic blood pressure 123 mm[Hg] Jorge Reddy Jr., MD Work Phone: [facility] 12-11-2023 13:33-0400 Body mass index (BMI) [Ratio] 27.8 kg/m2 Sushant Darrian DENTAL THERAPIST.MANAGER MEDICARE Work Phone: [facility] 12-11-2023 13:33-0400 Body weight 90.4 kg Sushant Darrian DENTAL THERAPIST.MANAGER MEDICARE Work Phone: [facility] 12-11-2023 13:33-0400 Diastolic blood pressure 73 mm[Hg] Sushant Darrian DENTAL THERAPIST.MANAGER MEDICARE Work Phone: [facility] 12-11-2023 13:33-0400 Heart rate 91 /min Sushant Darrian DENTAL THERAPIST.MANAGER MEDICARE Work Phone: [facility] 12-11-2023 13:33-0400 Respiratory rate 16 /min Sushant Darrian DENTAL THERAPIST.MANAGER MEDICARE Work Phone: [facility] 12-11-2023 13:33-0400 SaO2% (BldA) [Mass fraction] 98 % Sushant Darrian DENTAL THERAPIST.MANAGER MEDICARE Work Phone: [facility] 12-11-2023 13:33-0400 Systolic blood pressure 106 mm[Hg] Sushant Darrian DENTAL THERAPIST.MANAGER MEDICARE Work Phone: [facility] 07-31-2023 11:49-0400 Body mass index (BMI) [Ratio] 28.31 kg/m2 Jules Haynes DO Work Phone: [facility] 07-31-2023 11:49-0400 Body temperature 97 [degF] Jules Haynes DO Work Phone: [facility] 07-31-2023 11:49-0400 Body weight 92.08 kg Jules Haynes DO Work Phone: [facility] 07-31-2023 11:49-0400 Diastolic blood pressure 80 mm[Hg] Jules Haynes DO Work Phone: [facility] 07-31-2023 11:49-0400 Heart rate 68 /min Jules Haynes DO Work Phone: [facility] 07-31-2023 11:49-0400 Respiratory rate 16 /min Jules Haynes DO Work Phone: [facility] 07-31-2023 11:49-0400 Systolic blood pressure 124 mm[Hg] Jules Haynes DO Work Phone: [facility] 06-27-2023 11:23-0400 Body mass index (BMI) [Ratio] 28.79 kg/m2 Danisha Rajguru DENTAL THERAPIST.MANAGER MEDICARE Work Phone: [facility] 06-27-2023 11:23-0400 Body weight 93.62 kg Danisha Rajguru DENTAL THERAPIST.MANAGER MEDICARE Work Phone: [facility] 06-27-2023 11:23-0400 Diastolic blood pressure 74 mm[Hg] Danisha Rajguru DENTAL THERAPIST.MANAGER MEDICARE Work Phone: [facility] 06-27-2023 11:23-0400 Heart rate 84 /min Danisha Rajguru DENTAL THERAPIST.MANAGER MEDICARE Work Phone: [facility] 06-27-2023 11:23-0400 Systolic blood pressure 142 mm[Hg] Danisha Rajguru DENTAL THERAPIST.MANAGER MEDICARE Work Phone: [facility] 06-23-2023 09:13-0400 Body mass index (BMI) [Ratio] 28.31 kg/m2 Jorge Reddy Jr., MD Work Phone: [facility] 06-23-2023 09:13-0400 Body weight 92.08 kg Jorge Reddy Jr., MD Work Phone: [facility] 06-23-2023 09:13-0400 Diastolic blood pressure 78 mm[Hg] Jorge Reddy Jr., MD Work Phone: [facility] 06-23-2023 09:13-0400 Heart rate 78 /min Jorge Reddy Jr., MD Work Phone: [facility] 06-23-2023 09:13-0400 Respiratory rate 16 /min Jorge Reddy Jr., MD Work Phone: [facility] 06-23-2023 09:13-0400 SaO2% (BldA) [Mass fraction] 96 % Jorge Reddy Jr., MD Work Phone: [facility] 06-23-2023 09:13-0400 Systolic blood pressure 138 mm[Hg] Jorge Reddy Jr., MD Work Phone: [facility] 05-22-2023 14:50-0400 Diastolic blood pressure 82 mm[Hg] Edinson Stinson MD Work Phone: [facility] 05-22-2023 14:50-0400 Heart rate 74 /min Edinson Stinson MD Work Phone: [facility] 05-22-2023 14:50-0400 Systolic blood pressure 127 mm[Hg] Edinson Stinson MD Work Phone: [facility] 05-22-2023 14:43-0400 Body height 180.3 cm Edinson Stinson MD Work Phone: [facility] 05-22-2023 14:43-0400 Body weight 91.63 kg Edinson Stinson MD Work Phone: [facility] 05-22-2023 14:43-0400 SaO2% (BldA) [Mass fraction] 100 % Edinson Stinson MD Work Phone: [facility] 03-31-2023 11:02-0500 Body weight 92.44 kg Virginia Keshav DENTAL THERAPIST.MANAGER MEDICARE Work Phone: [facility] 03-31-2023 11:02-0500 Diastolic blood pressure 86 mm[Hg] Virginia Keshav DENTAL THERAPIST.MANAGER MEDICARE Work Phone: [facility] 03-31-2023 11:02-0500 Heart rate 86 /min Virginia Keshav DENTAL THERAPIST.MANAGER MEDICARE Work Phone: [facility] 03-31-2023 11:02-0500 Respiratory rate 16 /min Virginia Keshav DENTAL THERAPIST.MANAGER MEDICARE Work Phone: [facility] 03-31-2023 11:02-0500 Systolic blood pressure 138 mm[Hg] Virginia Keshav DENTAL THERAPIST.MANAGER MEDICARE Work Phone: [facility] 03-21-2023 13:51-0500 Body weight 92.81 kg Danisha Rajguru DENTAL THERAPIST.MANAGER MEDICARE Work Phone: [facility] 03-21-2023 13:51-0500 Diastolic blood pressure 70 mm[Hg] Danisha Rajguru DENTAL THERAPIST.MANAGER MEDICARE Work Phone: [facility] 03-21-2023 13:51-0500 Heart rate 80 /min Danisha Rajguru DENTAL THERAPIST.MANAGER MEDICARE Work Phone: [facility] 03-21-2023 13:51-0500 Systolic blood pressure 140 mm[Hg] Danisha Rajguru DENTAL THERAPIST.MANAGER MEDICARE Work Phone: [facility] 12-21-2022 15:49-0400 Body weight 91.35 kg Virginia Keshav DENTAL THERAPIST.MANAGER MEDICARE Work Phone: [facility] 12-21-2022 15:49-0400 Diastolic blood pressure 78 mm[Hg] Virginia Keshav DENTAL THERAPIST.MANAGER MEDICARE Work Phone: [facility] 12-21-2022 15:49-0400 Heart rate 85 /min Virginia Keshav DENTAL THERAPIST.MANAGER MEDICARE Work Phone: [facility] 12-21-2022 15:49-0400 Respiratory rate 16 /min Virginia Keshav DENTAL THERAPIST.MANAGER MEDICARE Work Phone: [facility] 12-21-2022 15:49-0400 SaO2% (BldA) [Mass fraction] 97 % Virginia Keshav DENTAL THERAPIST.MANAGER MEDICARE Work Phone: [facility] 12-21-2022 15:49-0400 Systolic blood pressure 130 mm[Hg] Virginia Keshav DENTAL THERAPIST.MANAGER MEDICARE Work Phone: [facility] 12-16-2022 10:55-0400 Body weight 92.17 kg Sushant Darrian DENTAL THERAPIST.MANAGER MEDICARE Work Phone: [facility] 12-16-2022 10:55-0400 Diastolic blood pressure 78 mm[Hg] Sushant Darrian DENTAL THERAPIST.MANAGER MEDICARE Work Phone: [facility] 12-16-2022 10:55-0400 Heart rate 97 /min Sushant Darrian DENTAL THERAPIST.MANAGER MEDICARE Work Phone: [facility] 12-16-2022 10:55-0400 Respiratory rate 16 /min Sushant Darrian DENTAL THERAPIST.MANAGER MEDICARE Work Phone: [facility] 12-16-2022 10:55-0400 SaO2% (BldA) [Mass fraction] 96 % Sushant Darrian DENTAL THERAPIST.MANAGER MEDICARE Work Phone: [facility] 12-16-2022 10:55-0400 Systolic blood pressure 126 mm[Hg] Sushant Darrian DENTAL THERAPIST.MANAGER MEDICARE Work Phone: [facility] 10-06-2022 11:33-0400 Body weight 89 kg Virginia Keshav DENTAL THERAPIST.MANAGER MEDICARE Work Phone: [facility] 10-06-2022 11:33-0400 Diastolic blood pressure 68 mm[Hg] Virginia Keshav DENTAL THERAPIST.MANAGER MEDICARE Work Phone: [facility] 10-06-2022 11:33-0400 Heart rate 87 /min Virginia Keshav DENTAL THERAPIST.MANAGER MEDICARE Work Phone: [facility] 10-06-2022 11:33-0400 Respiratory rate 16 /min Virginiacindy Smallsman DENTAL THERAPIST.MANAGER MEDICARE Work Phone: [facility] 10-06-2022 11:33-0400 SaO2% (BldA) [Mass fraction] 98 % Virginiacindy Smallsman DENTAL THERAPIST.MANAGER MEDICARE Work Phone: [facility] 10-06-2022 11:33-0400 Systolic blood pressure 104 mm[Hg] Virginiacindy Smallsman DENTAL THERAPIST.MANAGER MEDICARE Work Phone: [facility] 09-17-2022 01:28-0400 Body height 180.34 cm [facility] 09-17-2022 01:28-0400 Body mass index (BMI) [Ratio] 26.7 kg/m2 [facility] 09-17-2022 01:28-0400 Body temperature 97.8 [degF] [facility] 09-17-2022 01:28-0400 Body weight 86.9 kg [facility] 09-17-2022 01:28-0400 Diastolic blood pressure 56 mm[Hg] [facility] 09-17-2022 01:28-0400 Heart rate 70 /min [facility] 09-17-2022 01:28-0400 Respiratory rate 18 /min [facility] 09-17-2022 01:28-0400 SaO2% (BldA) [Mass fraction] 98 % [facility] 09-17-2022 01:28-0400 Systolic blood pressure 96 mm[Hg] [facility] 09-07-2022 13:29-0400 Body weight 87.09 kg Jessica French DENTAL THERAPIST.MANAGER MEDICARE Work Phone: [facility] 09-07-2022 13:29-0400 Diastolic blood pressure 70 mm[Hg] Jessica Grigsbyf DENTAL THERAPIST.MANAGER MEDICARE Work Phone: [facility] 09-07-2022 13:29-0400 Heart rate 70 /min Jessica Grigsbyf DENTAL THERAPIST.MANAGER MEDICARE Work Phone: [facility] 09-07-2022 13:29-0400 Respiratory rate 16 /min Jessica Riveradelilah DENTAL THERAPIST.MANAGER MEDICARE Work Phone: [facility] 09-07-2022 13:29-0400 SaO2% (BldA) [Mass fraction] 98 % Jessica Grigsbyflores DENTAL THERAPIST.MANAGER MEDICARE Work Phone: [facility] 09-07-2022 13:29-0400 Systolic blood pressure 120 mm[Hg] Jessicajasen French DENTAL THERAPIST.MANAGER MEDICARE Work Phone: [facility] 09-05-2022 13:49-0400 Diastolic blood pressure 86 mm[Hg] [facility] 09-05-2022 13:49-0400 Heart rate 53 /min [facility] 09-05-2022 13:49-0400 Respiratory rate 12 /min [facility] 09-05-2022 13:49-0400 SaO2% (BldA) [Mass fraction] 100 % [facility] 09-05-2022 13:49-0400 Systolic blood pressure 169 mm[Hg] [facility] 09-05-2022 12:37-0400 Body mass index (BMI) [Ratio] 26.2 kg/m2 [facility] 09-05-2022 12:37-0400 Body temperature 97.8 [degF] [facility] 09-05-2022 12:37-0400 Body weight 85.4 kg [facility] 12-28-2021 11:00-0500 Diastolic blood pressure 83 mm[Hg] Adam Galvez MD Work Phone: [facility] 12-28-2021 11:00-0500 Heart rate 63 /min Adam Galvez MD Work Phone: [facility] 12-28-2021 11:00-0500 Respiratory rate 16 /min Adam Galvez MD Work Phone: [facility] 12-28-2021 11:00-0500 SaO2% (BldA) [Mass fraction] 94 % Adam Galvez MD Work Phone: [facility] 12-28-2021 11:00-0500 Systolic blood pressure 149 mm[Hg] Adam Galvez MD Work Phone: [facility] 12-28-2021 09:36-0500 Body height 180.3 cm Adam Galvez MD Work Phone: [facility] 12-28-2021 09:36-0500 Body temperature 97.3 [degF] Adam Galvez MD Work Phone: [facility] 12-28-2021 09:36-0500 Body weight 90.72 kg Adam Galvez MD Work Phone: [facility] 11-26-2021 12:32-0400 Body weight 94.17 kg Rosalina Zurawick DENTAL THERAPIST.MANAGER MEDICARE Work Phone: [facility] 11-26-2021 12:32-0400 Diastolic blood pressure 62 mm[Hg] Rosalina Zurawick DENTAL THERAPIST.MANAGER MEDICARE Work Phone: [facility] 11-26-2021 12:32-0400 Heart rate 60 /min Rosalina Zurawick DENTAL THERAPIST.MANAGER MEDICARE Work Phone: [facility] 11-26-2021 12:32-0400 Respiratory rate 14 /min Rosalina Zurawick DENTAL THERAPIST.MANAGER MEDICARE Work Phone: [facility] 11-26-2021 12:32-0400 Systolic blood pressure 110 mm[Hg] Rosalina Zurawick DENTAL THERAPIST.MANAGER MEDICARE Work Phone: [facility] 11-24-2021 16:30-0400 Body temperature 97.11 [degF] Luz Elena Javan DENTAL THERAPIST.MANAGER MEDICARE Work Phone: [facility] 11-24-2021 16:30-0400 Body weight 92.63 kg Luz Elena Javan DENTAL THERAPIST.MANAGER MEDICARE Work Phone: [facility] 11-24-2021 16:30-0400 Diastolic blood pressure 78 mm[Hg] Luz Elena Javan DENTAL THERAPIST.MANAGER MEDICARE Work Phone: [facility] 11-24-2021 16:30-0400 Heart rate 90 /min Luz Elena Javan DENTAL THERAPIST.MANAGER MEDICARE Work Phone: [facility] 11-24-2021 16:30-0400 Respiratory rate 20 /min Luz Elena Javan DENTAL THERAPIST.MANAGER MEDICARE Work Phone: [facility] 11-24-2021 16:30-0400 SaO2% (BldA) [Mass fraction] 98 % Luz Elena Javan DENTAL THERAPIST.MANAGER MEDICARE Work Phone: [facility] 11-24-2021 16:30-0400 Systolic blood pressure 122 mm[Hg] Luz Elena Javan DENTAL THERAPIST.MANAGER MEDICARE Work Phone: [facility] 11-16-2021 14:36-0400 Diastolic blood pressure 90 mm[Hg] Virginia Podlogar DENTAL THERAPIST.MANAGER MEDICARE Work Phone: [facility] 11-16-2021 14:36-0400 Heart rate 75 /min Virginia Podlogar DENTAL THERAPIST.MANAGER MEDICARE Work Phone: [facility] 11-16-2021 14:36-0400 Systolic blood pressure 144 mm[Hg] Virginia Podlogar DENTAL THERAPIST.MANAGER MEDICARE Work Phone: [facility] 11-16-2021 14:10-0400 Body weight 93.8 kg Virginia Podlogar DENTAL THERAPIST.MANAGER MEDICARE Work Phone: [facility] 11-16-2021 14:10-0400 Respiratory rate 18 /min Virginia Podlogar DENTAL THERAPIST.MANAGER MEDICARE Work Phone: [facility] 11-16-2021 14:10-0400 SaO2% (BldA) [Mass fraction] 98 % Virginia Podlogar DENTAL THERAPIST.MANAGER MEDICARE Work Phone: [facility] 11-08-2021 15:58-0400 Body height 182.2 cm Adam Galvez MD Work Phone: [facility] 11-08-2021 15:58-0400 Body weight 92.9 kg Adam Galvez MD Work Phone: [facility] 11-08-2021 15:58-0400 Diastolic blood pressure 77 mm[Hg] Adam Galvez MD Work Phone: [facility] 11-08-2021 15:58-0400 Heart rate 66 /min Adam Galvez MD Work Phone: [facility] 11-08-2021 15:58-0400 SaO2% (BldA) [Mass fraction] 99 % Adam Galvez MD Work Phone: [facility] 11-08-2021 15:58-0400 Systolic blood pressure 137 mm[Hg] Adam Galvez MD Work Phone: [facility] 10-20-2021 15:09-0400 Body weight 91.17 kg Rosalina Zurawick DENTAL THERAPIST.MANAGER MEDICARE Work Phone: [facility] 10-20-2021 15:09-0400 Diastolic blood pressure 60 mm[Hg] Rosalina Zurawick DENTAL THERAPIST.MANAGER MEDICARE Work Phone: [facility] 10-20-2021 15:09-0400 Heart rate 72 /min Rosalina Zurawick DENTAL THERAPIST.MANAGER MEDICARE Work Phone: [facility] 10-20-2021 15:09-0400 Respiratory rate 16 /min Rosalina Zurawick DENTAL THERAPIST.MANAGER MEDICARE Work Phone: [facility] 10-20-2021 15:09-0400 Systolic blood pressure 100 mm[Hg] Rosalina Zurawick DENTAL THERAPIST.MANAGER MEDICARE Work Phone: [facility] 09-27-2021 09:00-0400 Body temperature 97.5 [degF] Dr. Jules Haynes Work Phone: [facility] Work Phone: 09-27-2021 09:00-0400 Diastolic blood pressure 88 mm[Hg] Dr. Jules Haynes Work Phone: [facility] Work Phone: 09-27-2021 09:00-0400 Heart rate 61 /min Dr. Jules Haynes Work Phone: [facility] Work Phone: 09-27-2021 09:00-0400 Respiratory rate 18 /min Dr. Jules Haynes Work Phone: [facility] Work Phone: 09-27-2021 09:00-0400 SaO2% (BldA) [Mass fraction] 98 % Dr. Jules Haynes Work Phone: [facility] Work Phone: 09-27-2021 09:00-0400 Systolic blood pressure 125 mm[Hg] Dr. Jules Haynes Work Phone: [facility] Work Phone: 09-25-2021 22:30-0400 Body temperature 97.7 [degF] Dr. Jules Haynes Work Phone: [facility] Work Phone: 09-25-2021 22:30-0400 Diastolic blood pressure 76 mm[Hg] Dr. Jules Haynes Work Phone: [facility] Work Phone: 09-25-2021 22:30-0400 Heart rate 72 /min Dr. Jules Haynes Work Phone: [facility] Work Phone: 09-25-2021 22:30-0400 Respiratory rate 18 /min Dr. Jules Haynes Work Phone: [facility] Work Phone: 09-25-2021 22:30-0400 SaO2% (BldA) [Mass fraction] 92 % Dr. Jules Haynes Work Phone: [facility] Work Phone: 09-25-2021 22:30-0400 Systolic blood pressure 136 mm[Hg] Dr. Jules Haynes Work Phone: [facility] Work Phone: 09-25-2021 22:28-0400 Body height 180.[address] Jules Haynes Work Phone: [facility] Work Phone: 09-25-2021 22:28-0400 Body mass index (BMI) [Ratio] 27.5 kg/m2 Dr. Jules Haynes Work Phone: [facility] Work Phone: 09-25-2021 22:28-0400 Body weight 89.[address] Jules Haynes Work Phone: [facility] Work Phone: 07-27-2021 08:02-0400 Body temperature 97.39 [degF] Mariana Weller APRN.MANAGER MEDICARE Work Phone: [facility] 07-27-2021 08:02-0400 Body weight 91.26 kg Mariana Weller APRN.MANAGER MEDICARE Work Phone: [facility] 07-27-2021 08:02-0400 Diastolic blood pressure 80 mm[Hg] Mariana Weller APRN.MANAGER MEDICARE Work Phone: [facility] 07-27-2021 08:02-0400 Heart rate 70 /min Mariana Weller APRN.MANAGER MEDICARE Work Phone: [facility] 07-27-2021 08:02-0400 Respiratory rate 16 /min Mariana Weller APRN.MANAGER MEDICARE Work Phone: [facility] 07-27-2021 08:02-0400 SaO2% (BldA) [Mass fraction] 95 % Mariana Weller APRN.MANAGER MEDICARE Work Phone: [facility] 07-27-2021 08:02-0400 Systolic blood pressure 138 mm[Hg] Mariana Weller APRN.MANAGER MEDICARE Work Phone: [facility] 07-26-2021 16:09-0400 Body temperature 97.59 [degF] Katherin English APRN.MANAGER MEDICARE Work Phone: [facility] 07-26-2021 16:09-0400 Body weight 91.26 kg Katherin Praisler-Wood DENTAL THERAPIST.MANAGER MEDICARE Work Phone: [facility] 07-26-2021 16:09-0400 Diastolic blood pressure 76 mm[Hg] Katherin Praisler-Wood DENTAL THERAPIST.MANAGER MEDICARE Work Phone: [facility] 07-26-2021 16:09-0400 Heart rate 103 /min Katherin Praisler-Wood DENTAL THERAPIST.MANAGER MEDICARE Work Phone: [facility] 07-26-2021 16:09-0400 Respiratory rate 20 /min Katherin Praisler-Wood DENTAL THERAPIST.MANAGER MEDICARE Work Phone: [facility] 07-26-2021 16:09-0400 SaO2% (BldA) [Mass fraction] 95 % Katherin Praisler-Wood DENTAL THERAPIST.MANAGER MEDICARE Work Phone: [facility] 07-26-2021 16:09-0400 Systolic blood pressure 110 mm[Hg] Katherin Praisler-Wood DENTAL THERAPIST.MANAGER MEDICARE Work Phone: [facility] Encounters Encounter Date Encounter Type Care Provider Facility Start: 10-01-2024 End: 10-01-2024 ambulatory CLEMENCIA PRICE Facility:[id number] Start: 09-17-2024 End: 09-17-2024 Telephone encounter Clemencia Price MD Work Phone: Urology Comment on above: Surgery Start: 09-16-2024 End: 09-16-2024 ambulatory JULES HAYNES Facility:[facility] Start: 09-16-2024 End: 09-16-2024 Patient encounter procedure Clemencia Price MD Work Phone: Urology Comment on above: Hematuria, unspecifi ed type [R31.9] (Primary Dx); Gross hematuria; Benign prostatic hyperplasia with weak urinary stream; Incomplete bladder emptying Start: 09-16-2024 End: 09-16-2024 ambulatory CLEMENCIA PRICE Facility:[id number] Start: 09-13-2024 End: 09-13-2024 Telephone encounter Clemencia Price MD Work Phone: Urology Comment on above: Surgery Start: 09-09-2024 End: 09-09-2024 ambulatory CLARISSE CEE Facility:[facility] Start: 09-06-2024 End: 09-06-2024 Telephone encounter Clemencia Price MD Work Phone: Urology Start: 09-05-2024 End: 09-06-2024 Telephone encounter Klaus Ordonez MD Work Phone: Urology Comment on above: Appointment Start: 09-04-2024 End: 09-04-2024 Subsequent hospital visit by physician [facility] ([facility]) Work Phone: Cat Scan Comment on above: Gross hematuria [R31 .0] Start: 09-04-2024 End: 09-04-2024 ambulatory CLARISSE CEE Facility:[facility] Start: 09-03-2024 End: 09-03-2024 Telephone encounter Clarisse BURGESS-C Work Phone: Urology Comment on above: Orders Start: 08-27-2024 End: 08-30-2024 Follow-up encounter Clarisse Cee PA-C Work Phone: Urology Comment on above: Results Start: 08-21-2024 End: 08-21-2024 Refill Jules Haynes DO Work Phone: [facility] Comment on above: Refill Request Start: 08-20-2024 End: 08-20-2024 Patient encounter procedure Clarisse Cee PA-C Work Phone: Urology Comment on above: Gross hematuria (Helen teresa Dx); Screening for genitourinary condition; Personal history of kidney stones; Benign prostatic hyperplasia with weak urinary stream Start: 08-20-2024 End: 08-20-2024 ambulatory CLARISSE CEE Facility:[facility] Start: 08-19-2024 End: 08-21-2024 Telephone encounter Clarisse BURGESS-C Work Phone: Urology Comment on above: Request Outside [facility] Records Start: 08-18-2024 End: 08-18-2024 Emergency department patient visit Dr. Jules Haynes DO Work Phone: -Emergency Department Work Phone: Start: 08-18-2024 End: 08-20-2024 Refill Jorge Reddy MD Work Phone: Neurology Comment on above: Refill Request Start: 08-12-2024 End: 08-12-2024 Patient encounter procedure Sushant Darrian REGALADO.MANAGER MEDICARE Work Phone: Neurology Comment on above: RBD (REM behavioral disorder) (Primary Dx); Obstructive sleep apnea Start: 08-12-2024 End: 08-12-2024 ambulatory SUSHANT DARRIAN Facility:[facility] Start: 08-05-2024 End: 08-08-2024 Refill Sushant Darrian DENTAL THERAPIST.MANAGER MEDICARE Work Phone: Neurology Comment on above: Prescription Refills Start: 08-04-2024 End: 08-04-2024 ambulatory JULES L HAYNES Facility:[facility] Start: 08-04-2024 End: 08-04-2024 Office outpatient new 30 minutes Kenji Marr PA-C Work Phone: [facility] Comment on above: Dog bite of left leong d, initial encounter (Primary Dx) Start: 08-02-2024 End: 08-08-2024 ambulatory Jules Pallavi PeñaHaynes DO Work Phone: [facility] [place] Comment on above: Klonopin Refill Request (/) Start: 08-01-2024 End: 08-02-2024 Refill Sushant Darrian REGALADO.MANAGER MEDICARE Work Phone: Neurology Comment on above: Refill Request Start: 05-21-2024 End: 05-21-2024 Refill Jules L Haynes DO Work Phone: [facility] [place] Comment on above: Refill Request Start: 05-12-2024 End: 05-13-2024 Refill Kenji Mann MD Work Phone: [facility] [place] Comment on above: Refill Request Start: 04-08-2024 End: 04-09-2024 Telephone encounter Jules Peñarison DO Work Phone: [facility] [place] Start: 04-06-2024 End: 04-08-2024 Refill Jorge Reddy MD Work Phone: Neurology Comment on above: Refill Request Request new prescrip tion Start: 03-25-2024 End: 03-25-2024 ambulatory JULES L HAYNES Facility:[facility] Start: 03-25-2024 End: 03-25-2024 Patient encounter procedure Jules Haynes DO Work Phone: [facility] [place] Comment on above: Fatigue, unspecified type (Primary Dx); Need for influenza vaccination; BOBBY (obstructive sleep apnea); Anxiety with depression; RBD (REM behavioral disorder); PLMD (periodic limb movement disorder) Start: 02-19-2024 End: 02-19-2024 Refill Jorge Reddy MD Work Phone: Neurology Comment on above: Refill Request Start: 02-12-2024 End: 02-12-2024 Refill Jules Haynes DO Work Phone: [facility] Comment on above: Refill Request Start: 01-11-2024 End: 01-12-2024 Refill Rosalina Morgan APRN.MANAGER MEDICARE Work Phone: [facility] Comment on above: Refill Request Start: 01-08-2024 End: 01-08-2024 ambulatory JULES PEÑARISON Facility:[facility] Start: 01-08-2024 End: 01-08-2024 Patient encounter procedure Jorge Reddy MD Work Phone: Neurology Comment on above: Obstructive sleep ap ramírez (adult) (pediatric) (Primary Dx); High risk medication use; RBD (REM behavioral disorder); PLMD (periodic limb movement disorder); Shift work sleep disorder Start: 12-11-2023 End: 12-11-2023 Patient encounter procedure Sushant Colmenares APRN.MANAGER MEDICARE Work Phone: Neurology Comment on above: RBD (REM behavioral disorder) (Primary Dx) Start: 12-11-2023 End: 12-11-2023 ambulatory JULES L HAYNES Facility:[facility] Start: 12-09-2023 End: 12-10-2023 Refill Jules Haynes DO Work Phone: [facility] [place] Comment on above: Refill Request (Clon azepam ) Start: 11-27-2023 End: 11-27-2023 Telephone encounter Madhavi Perea DMD Work Phone: Dentistry Comment on above: Appointment Start: 11-01-2023 End: 11-01-2023 Telephone encounter Jorge Reddy MD Work Phone: Neurology Comment on above: Patient Update Start: 10-25-2023 End: 10-25-2023 Telephone encounter Jorge Reddy MD Work Phone: Neurology Start: 09-19-2023 End: 09-19-2023 Patient encounter procedure Danisha Delarosa APRN.MANAGER MEDICARE Work Phone: Psychiatry Comment on above: NO [...] Jules Haynes DO Work Phone: [facility] [place] Comment on above: Well adult exam ([facility] Dx); Anxiety with depression; Vision abnormalities; Major depressive disorder, recurrent episode, moderate (HCC); BOBBY (obstructive sleep apnea); Fatigue, unspecified type; Subclinical hypothyroidism; Hypercholesteremia; Nightmares Start: 07-31-2023 End: 07-31-2023 Patient encounter status Jules Haynes DO Work Phone: [facility] Work Phone: Start: 06-27-2023 End: 06-27-2023 Patient encounter procedure Danisha Delarosa DENTAL THERAPIST.MANAGER MEDICARE Work Phone: Psychiatry Comment on above: PTSD (post-traumatic stress disorder) (Primary Dx); CHRISTOPHER (generalized anxiety disorder); Marijuana use; Alcohol use Start: 06-23-2023 End: 06-23-2023 Patient encounter procedure Jorge Reddy MD Work Phone: Neurology Comment on above: BOBBY (obstructive sle ep apnea) (Primary Dx); RBD (REM behavioral disorder); PLMD (periodic limb movement disorder) Start: 05-31-2023 Refill Jessica French DENTAL THERAPIST.MANAGER MEDICARE Work Phone: [facility] Medicine [place] Comment on above: Refill Request Start: 05-22-2023 End: 05-22-2023 Patient encounter procedure Edinson Stinson MD Work Phone: [facility] Cardiovascular Comment on above: Bilateral carotid ar fadumo stenosis (Primary Dx); Pure hypercholesterolemia; 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); Sleep apnea, unspecified type; Aneurysm of ascending aorta without rupture (HCC) Start: 03-31-2023 ambulatory Sushant Colmenares DENTAL THERAPIST.MANAGER MEDICARE Work Phone: Neurology Comment on above: Oralia Madrigal Start: 03-31-2023 End: 03-31-2023 Patient encounter procedure Virginia Keshav DENTAL THERAPIST.MANAGER MEDICARE Work Phone: [facility] [place] Comment on above: Fatigue, unspecified type (Primary Dx); BOBBY (obstructive sleep apnea); Vivid dream; Nightmares; Restless sleeper; Night sweats; Alcohol abuse Start: 03-27-2023 Telephone encounter Jules bhatjeannette DO Work Phone: [facility] [place] Comment on above: Patient Question Start: 03-25-2023 ambulatory Jules Olivo Lindy son DO Work Phone: [facility] [place] Comment on above: lab work Start: 03-21-2023 End: 03-21-2023 Patient encounter procedure Danisha Delarosa DENTAL THERAPIST.MANAGER MEDICARE Work Phone: Psychiatry Comment on above: PTSD (post-traumatic stress disorder) (Primary Dx); CHRISTOPHER (generalized anxiety disorder); Marijuana use; Alcohol use; Night terrors Start: 01-30-2023 Orders Only Elmag Jose Stinson MD Work Phone: [facility] Cardiovascular Comment on above: Abdominal aortic emb olism (HCC) (Primary Dx) Start: 01-09-2023 End: 01-09-2023 Patient encounter procedure Danisha Delarosa APRN.MANAGER MEDICARE Work Phone: Psychiatry Comment on above: APPOINTMENT CANCELLE D (Primary Dx) Start: 01-09-2023 End: 01-09-2023 Telemedicine consultation with patient Danisha Delarosa APRN.MANAGER MEDICARE Work Phone: [facility] [place] Start: 12-26-2022 End: 12-26-2022 [facility] Danisha Delarosa APRN.MANAGER MEDICARE Work Phone: Psychiatry Comment on above: CHRISTOPHER (generalized anx iety disorder) (Primary Dx); Major depressive disorder, recurrent episode, moderate (HCC); Night terrors; Marijuana use; Alcohol use Start: 12-21-2022 End: 12-21-2022 Patient encounter procedure Virginia Lyon APRN.MANAGER MEDICARE Work Phone: [facility] Comment on above: BPPV (benign paroxys mal positional vertigo), unspecified laterality (Primary Dx); Dizzy; Nausea Start: 12-19-2022 Refill Jules Israel son DO Work Phone: Family [facility] [place] Start: 12-16-2022 End: 12-16-2022 Patient encounter procedure Sushant Colmenares APRN.MANAGER MEDICARE Work Phone: Neurology Comment on above: BOBBY (obstructive sle ep apnea) (Primary Dx); Excessive daytime sleepiness; Dream enactment behavior Start: 12-15-2022 Telephone encounter Zulay fraga [facility] Work Phone: Psychology Comment on above: consult Start: 12-01-2022 Telephone encounter Virginia Melchor APRN.CNP Work Phone: [facility] [place] Start: 11-24-2022 Refill Rosalina Morgan DENTAL THERAPIST.MANAGER MEDICARE Work Phone: [facility] Comment on above: Refill Request Start: 11-15-2022 End: 11-16-2022 ambulatory JULES HAYNES Facility:[facility] Start: 11-01-2022 End: 11-01-2022 Patient encounter procedure Nando Sanchez MD Work Phone: Otolaryngology Comment on above: Impaired auditory di scrimination, left (Primary Dx); Closed fracture of nasal bone, initial encounter; Chronic rhinitis; Deviated nasal septum Start: 10-06-2022 Telephone encounter Virginia Melchor DENTAL THERAPIST.MANAGER MEDICARE Work Phone: [facility] Comment on above: Appointment Start: 10-06-2022 End: 10-06-2022 Patient encounter procedure Virginia Lyon DENTAL THERAPIST.MANAGER MEDICARE Work Phone: [facility] Comment on above: Nightmares (Primary Dx); Fatigue, unspecified type; Chronic insomnia; Restless sleeper; BOBBY (obstructive sleep apnea) Start: 09-17-2022 End: 09-17-2022 [facility] Start: 09-07-2022 End: 09-07-2022 Patient encounter procedure Jessica French DENTAL THERAPIST.MANAGER MEDICARE Work Phone: [facility] Comment on above: Hospital discharge f ollow-up (Primary Dx); Abdominal cramping; Night sweats; GERD without esophagitis; Anxiety with depression Start: 09-05-2022 End: 09-05-2022 [facility] Start: 06-17-2022 End: 06-17-2022 ambulatory Adam Galvez MD Work Phone: Gastroenterology Comment on above: Lower esophageal rin g (Fernando) (Primary Dx) Start: 06-17-2022 End: 06-17-2022 Telemedicine consultation with patient Adam Galvez MD Work Phone: [facility] Start: 01-31-2022 Refill Rosalina Christosroman ko DENTAL THERAPIST.MANAGER MEDICARE Work Phone: [facility] [place] Comment on above: Refill Request Start: 01-05-2022 End: 01-05-2022 ambulatory Virginia Lyon DENTAL THERAPIST.MANAGER MEDICARE Work Phone: [facility] [place] Comment on above: Anxiety with depress ion (Primary Dx); Nightmares Start: 01-05-2022 End: 01-05-2022 Telemedicine consultation with patient Virginia Lyon DENTAL THERAPIST.MANAGER MEDICARE Work Phone: [facility] [place] Start: 12-28-2021 End: 12-28-2021 Subsequent hospital visit by physician Adam Galvez MD Work Phone: Gastroenterology Comment on above: Esophageal dysphagia [R13.19] Start: 12-21-2021 Telephone encounter Damaris Norton RNcommunity living coach Comment on above: Appointment Start: 11-26-2021 End: 11-26-2021 Patient encounter procedure Rosalina Perez DENTAL THERAPIST.MANAGER MEDICARE Work Phone: [facility] Comment on above: Tinea corporis (Prim mik Dx); Urinary frequency; Anxiety with depression; Situational anxiety Start: 11-24-2021 End: 11-24-2021 Patient encounter procedure Luz Elena Edouard DENTAL THERAPIST.MANAGER MEDICARE Work Phone: [place] [facility] Comment on above: Tinea corporis (Prim mik Dx) Start: 11-16-2021 End: 11-16-2021 Patient encounter procedure Virginia Horner DENTAL THERAPIST.MANAGER MEDICARE Work Phone: [facility] [place] Comment on above: Stabbing pain (Prima ry Dx); Elevated BP without diagnosis of hypertension Start: 11-08-2021 End: 11-08-2021 Patient encounter procedure Adam Galvez MD Work Phone: Gastroenterology Comment on above: Esophageal dysphagia (Primary Dx); Irritable bowel syndrome with diarrhea Start: 10-27-2021 Telephone encounter Rosalina henriquez DENTAL THERAPIST.MANAGER MEDICARE Work Phone: [facility] Comment on above: Results Results (radiology) Start: 10-27-2021 End: 10-27-2021 Subsequent hospital visit by physician [facility] Work Phone: Radiology Comment on above: Subclinical hypothyr oidism [E03.8] Start: 10-21-2021 ambulatory Rosalina Christosninfac maikel DENTAL THERAPIST.MANAGER MEDICARE Work Phone: [facility] Comment on above: Test Results Start: 10-21-2021 Telephone encounter Rosalina henriquez DENTAL THERAPIST.MANAGER MEDICARE Work Phone: [facility] Comment on above: Results Start: 10-20-2021 End: 10-20-2021 Patient encounter procedure Rosalina Perez DENTAL THERAPIST.MANAGER MEDICARE Work Phone: [facility] Comment on above: Fatigue, unspecified type (Primary Dx); Cellulitis of left lower extremity; Esophageal dysphagia; Subclinical hypothyroidism; Hypercholesteremia; Urinary frequency; Irritable bowel syndrome with diarrhea Start: 09-27-2021 Non-patient / Non-visit Dr. Jules Haynes Work Phone: [facility] Start: 09-26-2021 Non-patient / Non-visit Dr. Jules Haynes Work Phone: [facility] Start: 09-25-2021 Non-patient / Non-visit Dr. Jules Haynes Work Phone: [facility] Start: 09-25-2021 End: 09-27-2021 Evaluation and management of inpatient Dr. Jules Haynes Work Phone: [facility] Start: 09-25-2021 ambulatory Za Oliveira RN [facility] [employer] Comment on above: Puncture Wound (Step ped on chato nail 09/24/21) Start: 07-27-2021 End: 07-27-2021 Patient encounter procedure Mariana Weller DENTAL THERAPIST.MANAGER MEDICARE Work Phone: [facility] Comment on above: Visit for wound chec k (Primary Dx) Start: 07-26-2021 End: 07-26-2021 Patient encounter procedure Katherin MatiasEdgardo REGALADO.MANAGER MEDICARE Work Phone: [facility] Comment on above: Laceration of left f orearm, initial encounter (Primary Dx) Start: 02-28-2020 End: 02-28-2020 Subsequent hospital visit by physician Xr [facility] [place] Work Phone: Radiology Comment on above: Chest tightness [R07 .89] Procedures Date Procedure Procedure Detail Performing Clinician Start: 09-16-2024 Urnls dip stick/tabl et rgnt auto w/o microscopy Clemencia Price MD Work Phone: Start: 09-16-2024 Lipid 1996 panel - S yomi or Plasma Clemencia Price MD Work Phone: Start: 08-20-2024 Culture bacterial quanttative colony count urine Clarisse BURGESS-C Work Phone: Start: 08-20-2024 Cytp slctv cell enhancement interpj xcpt c/v Clarisse Cee PA-C Work Phone: Start: 08-20-2024 Urnls dip stick/tabl et rgnt auto w/o microscopy Clarisse Cee PA-C Work Phone: Start: 08-18-2024 Urnls dip stick/tabl et reagent auto microscopy Dr. Jules Haynes DO Work Phone: Start: 08-18-[address] Jules Haynes DO Work Phone: Start: 08-18-2024 CT of abdomen and pe lvis without contrast Dr. Jules Haynes DO Work Phone: Start: 05-22-2023 Lipid 1996 panel - S [...] Start: 10-23-2021 Lipid 1996 panel - S ymoi or Plasma Nando Sanchez MD Work Phone: Start: 09-25-2021 X-ray of both feet Dr. Jules Haynes Work Phone: Start: 07-09-2020 Colonoscopy Katherin Cullen DENTAL THERAPIST.MANAGER MEDICARE Work Phone: Start: 02-28-2020 Radiologic exam ches t 2 views Virginia Lyon DENTAL THERAPIST.MANAGER MEDICARE Work Phone: Plan of Treatment Date Care Activity Detail Author Start: 2033 RSV Vaccine (1 - 1-dose 75+ series) RSV Vaccine (1 - 1-dose 75+ series) [facility] Start: 09-26-2031 Urine microalbumin profile DTaP,Tdap,Td Vaccine (3 - Td or Tdap) [facility] Start: 09-16-2029 Lipid panel Lipid Screening [facility] Start: 09-16-2029 Prostate specific antigen measurement Prostate Cancer Screening Discussion [facility] Start: 07-30-2029 Urine microalbumin profile [facility] Start: 05-21-2028 Lipid panel Lipid Screening [facility] Start: 09-17-2027 Diabetes Screening Diabetes Screening [facility] Start: 10-23-2026 Lipid 1996 panel - Serum or Plasma Lipid Screening [facility] Start: 10-23-2026 Lipid panel Lipid Screening [facility] Start: 10-23-2026 LIPID SCREEN LIPID SCREEN [facility] Start: 10-20-2026 LIPID SCREEN LIPID SCREEN [facility] Start: 10-20-2026 PROSTATE CANCER SCREENING DISCUSSION PROSTATE CANCER SCREENING DISCUSSION [facility] Start: 10-20-2026 Prostate specific antigen measurement Prostate Cancer Screening Discussion [facility] Start: 07-30-2026 Diabetes Screening Diabetes Screening [facility] Start: 03-29-2026 Diabetes Screening Diabetes Screening [facility] Start: 09-12-2025 DIABETES SCREEN DIABETES SCREEN [facility] Start: 09-12-2025 Diabetes Screening Diabetes Screening [facility] Start: 07-09-2025 Colonoscopy COLONOSCOPY [facility] Start: 07-09-2025 COLORECTAL CANCER SCREENING COLORECTAL CANCER SCREENING [facility] Start: 07-09-2025 Screening for malignant neoplasm of colon [facility] Start: 03-31-2025 End: 03-31-2025 Patient encounter procedure 03/31/2025 10:40 AM EST Office Visit Neurology [address] [place], [place] [id number] Jorge Reddy Jr., MD [address] [place] [address] [phone] 6 mo follow up Neurology Comment on above: 6 mo follow up Start: 03-25-2025 Annual PCP Team Chronic Disease Visit Annual PCP Team Chronic Disease Visit [facility] Start: 03-25-2025 Covid-19 Vaccine () Covid-19 Vaccine () [facility] Comment on above: Postponed from 10/22/2023 (Declined at t his time) Start: 03-10-2025 End: 03-10-2025 Follow-up encounter 03/10/2025 9:20 AM EST [facility] [address] [facility] [place] [id number] Jorge Reddy Jr., MD [address] [place] [address] [phone] 6 month follow up Neurology Comment on above: 6 month follow up Start: 11-12-2024 End: 02-11-2025 TOXICOLOGY SCREEN, ROUTINE URINE TOXICOLOGY SCREEN, ROUTINE URINE Lab Routine RBD (REM behavioral disorder) Expected: 11/12/2024 (Approximate), Expires: 02/11/2025 [facility] Work Phone: Comment on above: Expected: 11/12/2024 (Approximate), Expi res: 02/11/2025 Start: 11-12-2024 End: 11-12-2024 ambulatory 11/12/2024 9:00 AM EDT Results Only [facility] [address] [place] [address] [facility] Start: 10-22-2024 End: 10-22-2024 Patient encounter procedure 10/22/2024 12:00 PM EDT Office Visit Urology [address] [facility] [place] [address] Shruthi Rosenberg APRN.MANAGER MEDICARE [address] [facility] [place] [address] post op cysto Urology Comment on above: post op cysto Start: 10-21-2024 Influenza vaccination Influenza Vaccine (#1) [facility] Start: 10-20-2024 DIABETES SCREEN DIABETES SCREEN [facility] Start: 10-02-2024 End: 10-02-2024 Patient encounter procedure 10/02/2024 6:00 PM EDT Office Visit Family Medicine [place] [address] [place], [place] [phone] Alicia River APRN.MANAGER MEDICARE [address] [place], [place] [phone] medication review with labs [facility] Comment on above: medication review with labs Start: 10-01-2024 End: 10-01-2024 Admission to same day surgery center 10/01/2024 1:45 PM EDT - 10/01/2024 2:35 PM EDT Surgery [facility] [place] [address] Clemencia Price MD [address] [place] [address] CYSTOSCOPY [facility] Comment on above: CYSTOSCOPY Start: 10-01-2024 End: 10-01-2024 Cystourethroscopy CYSTOSCOPY Gross hematuria 10/01/2024 1:45 PM EDT MR OR Start: 10-01-2024 Subsequent hospital visit by physician 10/01/2024 1:45 PM EDT Hospital Encounter [facility] [address] [facility] [place] [address] Clemencia Price MD [address] [place] [address] Gross hematuria [R31.0] [facility] Comment on above: Gross hematuria [R31.0] Start: 09-16-2024 End: 09-16-2024 ambulatory 09/16/2024 1:00 PM EDT Results Only [place] [facility] [address] [place] [address] [place] [facility] Start: 09-16-2024 End: 09-16-2024 Patient encounter procedure 09/16/2024 10:30 AM EDT Office Visit Urology [address] [place] [address] [place] [address] Clemencia Price MD [address] [place] [address] [place] [address] discuss cysto--per Dr. Price Urology Comment on above: discuss cysto--per Dr. Price Start: 09-10-2024 End: 09-10-2024 Patient encounter procedure 09/10/2024 8:00 AM EDT Office Visit Urology [address] [place] [address] [place] [address] Klaus Ordonez MD [address] [place] [address] [place] [address] cysto Urology Comment on above: cysto Start: 09-09-2024 End: 09-09-2024 ambulatory 09/09/2024 10:00 AM EDT Results Only [place] [facility] [address] [place] [address] [place] [facility] Start: 09-04-2024 End: 09-04-2024 Patient encounter procedure 09/04/2024 3:00 PM EDT Appointment Cat Scan [address] [place] [address] UROGRAM Cat Scan Comment on above: UROGRAM Start: 09-04-2024 End: 09-04-2024 ambulatory 09/04/2024 2:00 PM EDT Results Only [place] [address] [place] [address] STAT [facility] Comment on above: STAT LABS Start: 09-03-2024 End: 12-03-2024 Creatinine and Glomerular filtration rate.predicted panel - Serum, Plasma or Blood CREATININE BLD Lab Routine Gross hematuria Expected: 09/03/2024, Expires: 12/03/2024 [facility] Work Phone: Comment on above: Expected: 09/03/2024, Expires: Start: 08-27-2024 End: 09-19-2025 CT Kidney WO and W contrast IV CT UROGRAM WO/W IVCON Radiology Routine Gross hematuria Expected: 08/27/2024 (Approximate), Expires: 09/19/2025 [facility] Comment on above: Expected: 08/27/2024 (Approximate), Expi res: 09/19/2025 Start: 08-27-2024 Cystourethroscopy CYSTO.PANENDO Procedures Routine Gross hematuria Expected: 08/27/2024 (Approximate) [facility] Comment on above: Expected: 08/27/2024 (Approximate) Start: 08-27-2024 End: 08-27-2024 Orders Only 08/27/2024 Orders Only Urology [address] [place] [address] Clarisse Cee PA-C [address] [place] [address] Gross hematuria Urology Comment on above: Gross hematuria Start: 08-18-2024 End: 08-18-2024 [facility] Start: 08-12-2024 End: 08-12-2024 Patient encounter procedure 08/12/2024 1:30 PM EDT Office Visit Neurology [address] [facility] [place] [address] Sushant Colmenares APRN.MANAGER MEDICARE [address] [place] [address] Medication follow up Neurology Comment on above: Medication follow up Start: 07-30-2024 Annual PCP Team Chronic Disease Visit Annual PCP Team Chronic Disease Visit [facility] Start: 07-30-2024 LIPID SCREEN LIPID SCREEN [facility] Start: 07-30-2024 PROSTATE CANCER SCREENING DISCUSSION PROSTATE CANCER SCREENING DISCUSSION [facility] Start: 04-22-2024 End: 04-22-2024 Patient encounter procedure 04/22/2024 1:50 PM EST Office Visit Dentistry [address] [address] Madhavi Perea, DMD [address] [place], [place] [id number] [facility] Comment on above: [facility] Start: 03-31-2024 Annual PCP Team Chronic Disease Visit Annual PCP Team Chronic Disease Visit [facility] Start: 03-24-2024 DIABETES SCREEN DIABETES SCREEN [facility] Start: 02-21-2024 Advance Directive Discussion Advance Directive Discussion [facility] Start: 01-15-2024 End: 01-15-2024 Patient encounter procedure Neurology Comment on above: Refill on medication Refill on medication , [facility] 7.10.24 [facility]- see TE 11/01/23 Start: 01-08-2024 End: 04-08-2024 BENZO CONFIRM, URINE [facility] Work Phone: Comment on above: Expected: 01/08/2024, Expires: Start: 12-22-2023 Annual PCP Team Chronic Disease Visit Annual PCP Team Chronic Disease Visit [facility] Start: 12-11-2023 End: 12-11-2023 Patient encounter procedure 12/11/2023 1:30 PM EDT Office Visit Neurology [address] [place] [address] Sushant Colmenares, DENTAL THERAPIST.MANAGER MEDICARE [address] [place], [place] [id number] extreme dreams, sleep walking per [facility] Comment on above: extreme dreams, sleep walking per [facility] Start: 12-10-2023 Annual PCP Team Chronic Disease Visit Annual PCP Team Chronic Disease Visit [facility] Start: 10-22-2023 Covid-19 Vaccine ( season) Covid-19 Vaccine ( season) [facility] Start: 10-22-2023 Covid-19 Vaccine ( season) Covid-19 Vaccine () [facility] Start: 10-22-2023 Influenza vaccination Influenza Vaccine (#1) Sathish ernandez Start: 10-07-2023 ANNUAL PCP TEAM CHRONIC DISEASE VISIT ANNUAL PCP TEAM CHRONIC DISEASE VISIT [facility] Start: 10-06-2023 End: 10-06-2023 Patient encounter procedure 10/06/2023 10:40 AM EDT Office Visit Family Medicine [place] [address] [place], [place] [phone] Jules Haynes, [address], [place] [phone] Re cardiology appt with Dr Stinson 05/22/23. cpap altern Family [facility] Comment on above: Re cardiology appt with Dr Stinson 05/22/23. c pap altern Start: 09-19-2023 End: 09-19-2023 Patient encounter procedure 09/19/2023 1:00 PM EDT Office Visit Psychiatry [address] [place] [phone] Danisha Delarosa, DENTAL THERAPIST.MANAGER MEDICARE [address] [place] [phone] 3 month follow up Psychiatry Comment on above: 3 month follow up Start: 09-08-2023 ANNUAL PCP TEAM CHRONIC DISEASE VISIT ANNUAL PCP TEAM CHRONIC DISEASE VISIT [facility] Start: 08-30-2023 End: 08-30-2023 Patient encounter procedure 08/30/2023 8:00 AM EDT Office Visit Neurology [address] [phone] Jorge Reddy Jr., MD [address] [phone] BOBBY (obstructive sleep apnea) [G47.33] Neurology Comment on above: BOBBY (obstructive sleep apnea) [G47.33] Start: 08-15-2023 End: 08-15-2023 Patient encounter procedure 08/15/2023 1:00 PM EDT Office Visit [facility] Ophthalmology [address] [place] [address] Isadora Brown, OD [address] [place] [address] Vision abnormalities [H53.9] Ophthalmology Comment on above: Vision abnormalities [H53.9] Start: 07-31-2023 End: 10-30-2023 C reactive protein [Mass/volume] in Serum or Plasma [facility] Comment on above: Expected: 07/31/2023, Expires: Start: 07-31-2023 End: 10-30-2023 Comprehensive metabolic 2000 panel - Serum or Plasma [facility] Comment on above: Expected: 07/31/2023, Expires: Start: 07-31-2023 End: 10-30-2023 Hemoglobin A1c in Blood [facility] Work Phone: Comment on above: Expected: 07/31/2023, Expires: Start: 06-27-2023 End: 06-27-2023 Patient encounter procedure 06/27/2023 11:30 AM EDT Office Visit Psychiatry [address] [place] [phone] Danisha Delarosa, DENTAL THERAPIST.MANAGER MEDICARE [address] [place] [phone] follow up Psychiatry Comment on above: follow up Start: 2023 Advance Directive Discussion Advance Directive Discussion [facility] Start: 2023 Pneumococcal Vaccine: 65+ (1 of 1 - PCV) Pneumococcal Vaccine: 65+ (1 of 1 - PCV) [facility] Start: 01-05-2023 ANNUAL PCP TEAM CHRONIC DISEASE VISIT ANNUAL PCP TEAM CHRONIC DISEASE VISIT [facility] Start: 11-26-2022 ANNUAL PCP TEAM CHRONIC DISEASE VISIT ANNUAL PCP TEAM CHRONIC DISEASE VISIT [facility] Start: 11-16-2022 ANNUAL PCP TEAM CHRONIC DISEASE VISIT ANNUAL PCP TEAM CHRONIC DISEASE VISIT [facility] Start: 10-21-2022 Covid-19 Vaccine ( season) Covid-19 Vaccine () [facility] Start: 10-21-2022 Covid-19 Vaccine ( season) Covid-19 Vaccine () [facility] Start: 10-21-2022 Influenza vaccination [facility] Start: 10-20-2022 ANNUAL PCP TEAM CHRONIC DISEASE VISIT ANNUAL PCP TEAM CHRONIC DISEASE VISIT [facility] Start: 09-07-2022 End: 11-07-2022 25-hydroxyvitamin D3 [Mass/volume] in Serum or Plasma VITAMIN D 25 HYDROXY Lab Routine Night sweats Expected: 09/07/2022, Expires: 11/07/2022 [facility] Work Phone: Comment on above: Expected: 09/07/2022, Expires: 3 Start: 09-07-2022 End: 11-07-2022 CBC W Auto Differential panel - Blood CBC + DIFF Lab Routine Night sweats Expected: 09/07/2022, Expires: 11/07/2022 [facility] Work Phone: Comment on above: Expected: 09/07/2022, Expires: 3 Start: 09-07-2022 End: 11-07-2022 Cobalamin (Vitamin B12) [Mass/volume] in Serum or Plasma VITAMIN B12 BLOOD Lab Routine Night sweats Expected: 09/07/2022, Expires: 11/07/2022 [facility] Work Phone: Comment on above: Expected: 09/07/2022, Expires: 3 Start: 09-07-2022 End: 11-07-2022 Comprehensive metabolic 2000 panel - Serum or Plasma COMP METABOLIC PANEL Lab Routine Night sweats Expected: 09/07/2022, Expires: 11/07/2022 [facility] Work Phone: Comment on above: Expected: 09/07/2022, Expires: 3 Start: 09-07-2022 End: 11-07-2022 Iron and Iron binding capacity panel - Serum or Plasma IRON + TIBC Lab Routine Night sweats Expected: 09/07/2022, Expires: 11/07/2022 [facility] Work Phone: Comment on above: Expected: 09/07/2022, Expires: 3 Start: 09-07-2022 End: 11-07-2022 Thyrotropin [Units/volume] in Serum or Plasma TSH BLD Lab Routine Night sweats Expected: 09/07/2022, Expires: 11/07/2022 [facility] Work Phone: Comment on above: Expected: 09/07/2022, Expires: 3 Start: 09-07-2022 End: 11-07-2022 Thyroxine (T4) free [Mass/volume] in Serum or Plasma T4 FREE/FREE THYROX Lab Routine Night sweats Expected: 09/07/2022, Expires: 11/07/2022 [facility] Work Phone: Comment on above: Expected: 09/07/2022, Expires: 3 Start: 09-07-2022 End: 11-07-2022 Triiodothyronine (T3) [Mass/volume] in Serum or Plasma T3 BLD Lab Routine Night sweats Expected: 09/07/2022, Expires: 11/07/2022 [facility] Work Phone: Comment on above: Expected: 09/07/2022, Expires: 3 Start: 09-05-2022 Taking nasal swab [facility] Start: 08-19-2022 Influenza vaccination INFLUENZA (#1) [facility] Comment on above: Postponed from 10/21/2021 (Declined at t his time) Start: 03-24-2022 ANNUAL PCP TEAM CHRONIC DISEASE VISIT ANNUAL PCP TEAM CHRONIC DISEASE VISIT [facility] Start: 10-21-2021 Influenza vaccination [facility] Start: 10-21-2021 End: 12-21-2021 Lipid 1996 panel - Serum or Plasma LIPID PANEL BASIC Lab Routine Hypercholesteremia Expected: 10/21/2021, Expires: 12/21/2021 [facility] Work Phone: Comment on above: Expected: 10/21/2021, Expires: 2 Start: 10-20-2021 End: 12-20-2021 25-hydroxyvitamin D3 [Mass/volume] in Serum or Plasma [facility] Work Phone: Comment on above: Expected: 10/20/2021, Expires: 2 Start: 10-20-2021 End: 12-20-2021 CBC W Auto Differential panel - Blood [facility] Work Phone: Comment on above: Expected: 10/20/2021, Expires: 2 Start: 10-20-2021 End: 12-20-2021 Cobalamin (Vitamin B12) [Mass/volume] in Serum or Plasma [facility] Work Phone: Comment on above: Expected: 10/20/2021, Expires: 2 Start: 10-20-2021 End: 12-20-2021 Comprehensive metabolic 2000 panel - Serum or Plasma [facility] Work Phone: Comment on above: Expected: 10/20/2021, Expires: 2 Start: 10-20-2021 End: 12-20-2021 Ferritin [Mass/volume] in Serum or Plasma [facility] Work Phone: Comment on above: Expected: 10/20/2021, Expires: 2 Start: 10-20-2021 End: 12-20-2021 Iron and Iron binding capacity panel - Serum or Plasma [facility] Work Phone: Comment on above: Expected: 10/20/2021, Expires: 2 Start: 10-20-2021 End: 12-20-2021 Lipid 1996 panel - Serum or Plasma [facility] Work Phone: Comment on above: Expected: 10/20/2021, Expires: 2 Start: 10-20-2021 End: 12-20-2021 PSA/PROSTSPECAG SCRN [facility] Work Phone: Comment on above: Expected: 10/20/2021, Expires: 2 Start: 10-20-2021 End: 12-20-2021 THYROID PEROXIDASE ANTIBODY BLOOD [facility] Work Phone: Comment on above: Expected: 10/20/2021, Expires: 2 Start: 10-20-2021 End: 12-20-2021 Thyrotropin [Units/volume] in Serum or Plasma [facility] Work Phone: Comment on above: Expected: 10/20/2021, Expires: 2 Start: 10-20-2021 End: 12-20-2021 Thyroxine (T4) free [Mass/volume] in Serum or Plasma [facility] Work Phone: Comment on above: Expected: 10/20/2021, Expires: 2 Start: 10-20-2021 End: 12-20-2021 Triiodothyronine (T3) [Mass/volume] in Serum or Plasma [facility] Work Phone: Comment on above: Expected: 10/20/2021, Expires: 2 Start: 09-27-2021 Patient discharge [facility] Work Phone: Start: 09-26-2021 Provision of activity privileges [facility] Work Phone: Start: 09-26-2021 [facility] Work Phone: Start: 09-25-2021 Following clinical pathway protocol [facility] Work Phone: Start: 09-25-2021 Assessment of risk of venous thromboembolism [facility] Work Phone: Start: 09-25-2021 Catheterization of vein [facility] Work Phone: Start: 09-25-2021 Elevation of affected extremity [facility] Work Phone: Start: 09-25-2021 Insertion of catheter into peripheral vein [facility] Work Phone: Start: 09-25-2021 Measuring intake and output [facility] Work Phone: Start: 09-25-2021 Providing care according to standard [facility] Work Phone: Start: 09-25-2021 Provision of activity privileges [facility] Work Phone: Start: 09-25-2021 [facility] Work Phone: Start: 09-25-2021 Admission procedure [facility] Work Phone: Start: 01-20-2021 SHINGRIX VACCINE (2 of 2) SHINGRIX VACCINE (2 of 2) [facility] Start: 11-11-2020 COVID-19 VACCINE (3 - Booster for Moderna series) COVID-19 VACCINE (3 - Booster for Moderna series) [facility] Start: 08-06-2020 COVID-19 VACCINE (3 - Booster for Moderna series) COVID-19 VACCINE (3 - Booster for Moderna series) [facility] Start: 08-06-2020 COVID-19 VACCINE (3 - Moderna series) COVID-19 VACCINE (3 - Moderna series) [facility] Start: 2018 RSV Vaccine (1 - 1-dose 60+ series) RSV Vaccine (1 - 1-dose 60+ series) [facility] Start: 2008 Pneumococcal Vaccine: 50+ (1 of 1 - PCV) Pneumococcal Vaccine: 50+ (1 of 1 - PCV) [facility] Start: 2003 COLOGUARD (FIT-DNA) [facility] Start: [address] COLONOGRAPHY [facility] Start: 2003 FECAL OCCULT BLOOD FECAL OCCULT BLOOD [facility] Start: 2003 Screening for malignant neoplasm of colon [facility] Start: 2003 SIGMOIDOSCOPY SIGMOIDOSCOPY [facility] Start: 1960 Abdominal aortic aneurysm screening Abdominal Aortic Aneurysm Screening [facility] Alanine aminotransfe rase [Enzymatic activity/volume] in Serum or Plasma [facility] Work Phone: Albumin [Mass/volume ] in Serum or Plasma [facility] Work Phone: Alkaline phosphatase [Enzymatic activity/volume] in Serum or Plasma [facility] Work Phone: Anion gap measurement [facility] Work Phone: Aspartate aminotransferase [Enzymatic activity/volume] in Serum or Plasma [facility] Work Phone: Bilirubin, total measurement [facility] Work Phone: BUN/Creatinine ratio [facility] Work Phone: Calcium [Mass/volume ] in Serum or Plasma [facility] Work Phone: Carbon dioxide, tota l [Moles/volume] in Serum or Plasma [facility] Work Phone: Chloride [Moles/volu me] in Serum or Plasma [facility] Work Phone: Creatinine [Moles/vo lume] in Serum or Plasma [facility] Work Phone: CT Kidney WO and W contrast IV CT UROGRAM WO/W IVCON Radiology Routine Gross hematuria 09/04/2024 3:42 PM EDT [facility] Work Phone: Cystourethroscopy CYSTOSCOPY [facility] hematuria MR OR ECG COMPLETE ECG COMPLETE ECG Routine BPPV (benign paroxysmal positional vertigo), unspecified laterality Dizzy Nausea Ordered: 12/21/2022 [facility] Work Phone: Comment on above: Ordered: 12/21/2022 End: 01-31-2024 ECG COMPLETE ECG COMPLETE ECG Routine Abdominal aortic embolism (HCC) 1 Occurrences starting 01/30/2023 until 01/31/2024 [facility] Work Phone: Comment on above: 1 Occurrences starting 01/30/2023 until 01/31/2024 End: 11-08-2022 EGD - THERAPEUTIC, EUS, OR TUBE INTERVENTIONS EGD - THERAPEUTIC, EUS, OR TUBE INTERVENTIONS Endoscopy Routine Esophageal dysphagia 1 Occurrences starting 11/08/2021 until 11/08/2022 [facility] Work Phone: Comment on above: 1 Occurrences starting 11/08/2021 until 11/08/2022 End: 06-18-2023 EGD - THERAPEUTIC, EUS, OR TUBE INTERVENTIONS EGD - THERAPEUTIC, EUS, OR TUBE INTERVENTIONS Endoscopy Routine Lower esophageal ring (Schatzki) 1 Occurrences starting 06/17/2022 until 06/18/2023 [facility] Work Phone: Comment on above: 1 Occurrences starting 06/17/2022 until 06/18/2023 Glucose [Mass/volume ] in Serum or Plasma [facility] Work Phone: HEARING TEST/AUDIOGRAM HEARING T EST/AUDIOGRAM Audiology Routine Impaired auditory discrimination, left Ordered: 11/01/2022 [facility] Work Phone: Comment on above: Ordered: 11/01/2022 Hematocrit [Volume Fraction] of Blood [facility] Work Phone: Hemoglobin [Mass/vol ume] in Blood [facility] Work Phone: Leukocytes [#/volume ] in Blood [facility] Work Phone: Mean corpuscular hemoglobin concentration determination [facility] Work Phone: Mean corpuscular hemoglobin determination [facility] Work Phone: Measurement of renal function [facility] Work Phone: Neutrophil count [facility] Work Phone: Neutrophil percent differential count [facility] Work Phone: End: 11-05-2023 PAP TITRATION PSG (CPAP, BIPAP, ASV) PAP TITRATION PSG (CPAP, BIPAP, ASV) Procedures Routine Nightmares Fatigue, unspecified type Chronic insomnia Restless sleeper BOBBY (obstructive sleep apnea) 1 Occurrences starting 10/06/2022 until 11/05/2023 [facility] Work Phone: Comment on above: 1 Occurrences starting 10/06/2022 until 11/05/2023 Patient Education [facility] Work Phone: Patient referral [facility] Work Phone: Platelets [#/volume] in Blood [facility] Work Phone: POST VOID RESIDUAL POST VOID RES IDUAL Procedures Routine Screening for genitourinary condition Ordered: 08/20/2024 [facility] Work Phone: Comment on above: Ordered: 08/20/2024 Potassium [Moles/vol ume] in Serum or Plasma [facility] Work Phone: Red blood cell count [facility] Work Phone: Red cell distributio n width determination [facility] Work Phone: Sodium [Moles/volume ] in Serum or Plasma [facility] Work Phone: Total protein measurement [facility] Work Phone: Urea nitrogen [Mass/volume] in Serum or Plasma [facility] Work Phone: Urine culture [facility] End: 12-22-2023 US CAROTID ARTERIES [facility] US CAROTID ARTERIES [facility] Vascular Lab Routine BPPV (benign paroxysmal positional vertigo), unspecified laterality Dizzy Nausea 1 Occurrences starting 12/21/2022 until 12/22/2023 [facility] Work Phone: Comment on above: 1 Occurrences starting 12/21/2022 until 12/22/2023 End: 01-20-2024 US CAROTID BILATERAL US CAROTID BILATERAL Radiology Routine BPPV (benign paroxysmal positional vertigo), unspecified laterality Dizzy Nausea 1 Occurrences starting 12/21/2022 until 01/20/2024 [facility] Work Phone: Comment on above: 1 Occurrences starting 12/21/2022 until 01/20/2024 [facility] Immunizations Immunization Date Immunization Notes Care Provider Felicity pastrana 03-25-2024 influenza, high dose seasonal, preservative-free Jules Haynes DO Work Phone: [facility] 03-25-2024 influenza virus vaccine, unspecified formulation Jorge Reddy Jr., MD Work Phone: [facility] 12-09-2022 influenza, injectabl e, quadrivalent, contains preservative Zulay Lord [facility] Work Phone: [facility] Work Phone: 12-09-2022 influenza virus vaccine, unspecified formulation Jorge Reddy Jr., MD Work Phone: [facility] 09-25-2021 tetanus toxoid, redu demi diphtheria toxoid, and acellular pertussis vaccine, adsorbed Dr. Jules Haynes Work Phone: [facility] 11-25-2020 zoster vaccine recombinant Katherin English DENTAL THERAPIST.MANAGER MEDICARE Work Phone: [facility] 06-11-2020 Covid (Moderna) Dr. Jules lopez Work Phone: [facility] 05-14-2020 Covid (Moderna) Dr. Jules lopez Work Phone: [facility] 09-21-2019 influenza virus vaccine, unspecified formulation Nando Sanchez MD Work Phone: [facility] 07-31-2019 tetanus toxoid, redu demi diphtheria toxoid, and acellular pertussis vaccine, adsorbed Katherin English DENTAL THERAPIST.MANAGER MEDICARE Work Phone: [facility] 02-10-2019 Influenza, injectabl e, Madin Hardin Canine Kidney, preservative free, quadrivalent Dr. Jules Haynes Work Phone: [facility] 12-19-2017 influenza, injectabl e, quadrivalent, contains preservative Katherin English DENTAL THERAPIST.MANAGER MEDICARE Work Phone: [facility] Work Phone: 12-05-2016 influenza, injectabl e, quadrivalent, contains preservative Katherin English APRN.[facility] Work Phone: [facility] Work Phone: Payers Date Payer Category Payer Private Health Insurance [id number] 2024 Self-pay [id number] 2022 Unknown [id number] 2022 Unknown [id number] 2019 Private Health Insurance [employer] OAP [id number] 2019-Present [phone] [address] [place] [address] Open Access [id number] 2019 Private Health Insurance [id number] 2017 [employer] ( and others) [id number] 2017 Unknown [facility] [id number] 2017-Present [phone] [address] [place] [address] Indemnity [id number] 2017 Unknown [id number] Private Health Insurance [id number] Private Health Insurance [id number] Unknown [id number] Social History Date Type Detail Facility Start: 03-29-2013 End: 12-11-2023 Tobacco smoking status NHIS Ex-smoker [facility] Work Phone: Start: 02-20-1970 End: 02-20-2005 History of tobacco use Current smoker [facility] Work Phone: Start: 02-20-1970 End: 02-20-2005 History of tobacco use Cigarette Smoker [facility] Work Phone: Start: 03-29-2013 End: 09-07-2022 Cigarettes smoked current (pack per day) - Reported 1.25 [facility] Start: 03-29-2013 End: 12-11-2023 Tobacco use and exposure Smokeless tobacco non-user [facility] Work Phone: Start: 07-26-2021 End: 08-12-2024 Alcohol intake Current drinker of alcohol (finding) [facility] Start: 03-18-2021 History SDOH Alcohol Frequency 5 [facility] Start: 03-18-2021 End: 11-26-2021 History SDOH Alcohol Std Drinks 2 [facility] Start: 03-18-2021 History SDOH Social Connections Phone 4 [facility] Start: 03-18-2021 End: 11-26-2021 History SDOH Social Connections Get Together 1 [facility] Start: 03-18-2021 History SDOH Social Connections Living 3 [facility] Start: 03-18-2021 History SDOH Physical Activity DPW 0 [facility] Start: 02-27-2020 Education 14 [facility] Start: 1960 Sex Assigned At Male [facility] Start: 01-29-2020 End: 12-28-2021 Exposure to SARS-CoV-2 (event) Not sure [facility] Start: 09-25-2021 End: 09-17-2022 Tobacco smoking status PRIS Unknown if ever smoked [facility] Start: 03-18-2021 End: 09-07-2022 Social connection and isolation panel [facility] Do you belong to any clubs or organizations such as [employer] groups, [employer], [employer] or [employer] groups, or school groups? No [facility] Are you now , , , , never or living with a partner? [facility] How often to you hav e a drink containing alcohol? 4 or more times a week [facility] How many standard dr inks containing alcohol do you have on a typical day? 3 or 4 [facility] How often do you hav e 6 or more drinks on 1 occasion? Less than monthly [facility] How hard is it for y ou to pay for the very basics like food, housing, medical care, and heating Not hard at all [facility] Do you feel stress - tense, restless, nervous, or anxious, or unable to sleep at night because your mind is troubled all the time - these days [OSQ] Only a little [facility] (I/We) worried [place] (my/our) food would run out before (I/we) got money to buy more. Never true [facility] Start: 03-04-2020 Gender identity Identifies as male gender (finding) [facility] Start: 03-04-2020 Sexual orientation Heterosexual (finding) [facility] Do you belong to any clubs or organizations such as [employer] groups, [employer], [employer] or athletic groups, or school groups? Yes [facility] How many standard dr inks containing alcohol do you have on a typical day? 1 or 2 [facility] How often do you hav e 6 or more drinks on 1 occasion? Never [facility] Do you feel stress - tense, restless, nervous, or anxious, or unable to sleep at night because your mind is troubled all the time - these days [OSQ] Very much [facility] Start: 05-22-2023 Alcohol Comment 1-2 drinks per day [facility] Are you now , , , , never or living with a partner? Living with partner [facility] Start: 08-20-2024 End: 09-16-2024 Alcoholic beverage intake Ex-drinker (finding) [employer] [facility] Start: 08-20-2024 Alcohol Comment Quit 04/29/2024 [facility] Goals Date Patient Goal Desired Activity /State Personal health goal Functional Status Date Assessment Result Facility 09-27-2021 Functional status Ambulates;Up ad [place] [facility] Work Phone: 09-25-2021 Functional status Activity Abili ty Independent [facility] Work Phone: 09-24-2014 Are you deaf, or do you have serious difficulty hearing No 09/24/2014 12:52 PM EDT Carlos Rizvi LPN No [facility] 09-24-2014 Are you blind, or do you have serious difficulty seeing, even when wearing glasses No 09/24/2014 12:52 PM EDT Carlos Rizvi LPN No [facility] 09-24-2014 Do you have serious difficulty walking or climbing stairs No 09/24/2014 12:52 PM EDT Carlos Rizvi LPN No [facility] 09-24-2014 Do you have difficul ty dressing or bathing No 09/24/2014 12:52 PM EDT Carlos Rizvi LPN No [facility] 09-24-2014 Because of a physica l, mental, or emotional condition, do you have difficulty doing errands alone such as visiting a physician's office or shopping No 09/24/2014 12:52 PM EDT Carlos Rizvi LPN No [facility] Mental Status Date Assessment Result Facility 09-17-2022 Cognitive function Level Of Cons ciousness Awake;Alert;Restless [facility] Work Phone: 09-27-2021 Cognitive function Voice/Name [facility] Work Phone: 09-25-2021 Cognitive function Voice/Name [facility] Work Phone: 09-24-2014 Because of a physica l, mental, or emotional condition, do you have serious difficulty concentrating, remembering, or making decisions Yes 09/24/2014 12:52 PM EDT Carlos Rizvi LPN Yes [facility] Clinical Notes 02-28-2020 to 10-01-2024 Telephone Encounter - Carlos Wheeler - 09/17/2024 8:22 AM EDTTelephone Encounter - Abbie Wheelerssa Meryl - 09/17/2024 8:22 AM EDClemencia Olsen MD - 09/16/2024 11:15 AM EDT Note Date & Type Note Facility 10-01-2024 Note HNO ID: [id number] Author: ANGE LOPEZ CPhT Service: Pharmacy Author Type: Natural Gas Plant Supervisor Type: Plan of Care Filed: 10/01/2024 11:35 Note Text: PHARMACY BEDSIDE DELIVERY SERVICE Patient Name: Kacey Bentley The marked outpatient medications were Filled at: [facility] and delivered to the patient's bedside to pt Medication List START taking these medications cefUROXime 500 mg tablet Commonly known as: CEFTIN Take 1 tablet by mouth two times a day for 5 days. delivered CONTINUE taking these medications CALCIUM 500 + D (D3) ORAL clonazePAM 1 mg tablet Commonly known as: KlonoPIN Take 1 tablet by mouth daily at bedtime for 180 days. Patient should start on September 03, 2024. CPAP dicyclomine 10 mg capsule Commonly known as: BENTYL Take 1 capsule by mouth before meals and at bedtime. For bowels/irritable bowels finasteride 5 mg tablet Commonly known as: PROSCAR Take 1 tablet by mouth once daily. FLUoxetine 40 mg capsule Commonly known as: PROzac Take 1 capsule by mouth once daily. melatonin 5 mg Chew Take 1 tablet by mouth daily at bedtime. rosuvastatin 20 mg tablet Commonly known as: CRESTOR Take 1 tablet by mouth once daily. Vitamin D-3 5,000 unit Tab Generic drug: cholecalciferol You might also be taking other medications not listed above. If you have questions about any of your other medications, talk to the person who prescribed them or your Primary Care Provider. STOP taking these medications Aspirin 81 mg Tab Ange Lopez CPhT PAGER: norberto October 01, 2024 11:33 AM [facility] 10-01-2024 Note HNO ID: [id number] Author: CEM BREWSTER AA Service: ? Author Type: Risk Management Director Type: Anesthesia Procedure Notes Filed: 10/01/2024 09:52 Note Text: ANESTHESIOLOGY PROCEDURE NOTE Airway General Information Procedure Start Time/Medication Administration: 10/01/2024 9:41 AM Procedure End Time: 10/01/2024 9:41 AM Patient location during procedure: OR Timeout Performed Pre-procedure: timeout performed Consent Obtained: Yes Patient identity confirmed: arm band and patient Staffing Anesthesiologist: Sharmin Conde DO CAA: Cem Brewster AA Performed by: JUAN Indications and Patient Condition Indications for airway management: anesthesia Preoxygenated: yes anesthesia circuit Patient position: sniffing Method: asleep Final Airway Details Final airway type: supraglottic airway Number of attempts at approach: 1 Final Supraglottic Airway: i-gel Size: 4Seal Adequate: yes Airway not difficult SIGNATURE: SHYAM Zhang PATIENT NAME: Kacey Bentley DATE: October 01, 2024 TIME: 9:51 AM CSN: [id number] [facility] 09-30-2024 Note HNO ID: [id number] Author: TYLER BAPTISTE RN Service: Nursing Author Type: Registered Nurse Type: Progress Notes Filed: 09/30/2024 14:25 Note Text: MEDICATION INSTRUCTIONS PRIOR TO SURGERY Please read below carefully for your personalized instructions. Medications: If you are on blood thinner or anticoagulants including aspirin, please confirm with your surgical team on when to stop these medications. Unless instructed differently by your surgical team, stay on all of your medications until your surgery. Pre Surgery Med Instructions Medication instructions Aspirin 81 mg tab Follow prescriber's instructions. calcium carbonate/vitamin D3 (CALCIUM 500 + D, D3, ORAL) Follow surgeon's instructions. cholecalciferol (VITAMIN D-3) 5,000 unit tab Follow surgeon's instructions. clonazePAM (KLONOPIN) 1 mg tablet Continue as prescribed. CPAP dicyclomine (BENTYL) 10 mg capsule Continue as prescribed. finasteride (PROSCAR) 5 mg tablet Continue as prescribed. FLUoxetine (PROZAC) 40 mg capsule Continue as prescribed. melatonin 5 mg chew rosuvastatin (CRESTOR) 20 mg tablet Continue as prescribed. If you have any medication changes between receiving these instructions and your surgery date, please provide this updated information with the nurse who calls you the week day prior to your surgical procedure so we can update your list and provide you with updated instructions for the morning of your procedure. PRE-PROCEDURE INSTRUCTIONS TO PREPARE FOR YOUR PROCEDURE: Your arrival time for your procedure is 0715. Do NOT eat any solid foods after MIDNIGHT the night prior to your procedure - this includes gum or mints. You can drink clear liquids* up until 0515, which is 2 hours before your arrival time. *Clear liquids = water, carbohydrate drink (sports drink that is clear or yellow in color), Ensure Pre-Surgery (given by MARK or your DrChristina), fruit juice without pulp (apple/cranberry), clear tea, black coffee (no cream). NO CARBONATED BEVERAGES AND NO ALCOHOL. Shower the morning of the procedure, put on clean clothes, and have clean sheets for your bed to help prevent infection after your procedure. Leave all valuables such as jewelry including rings, piercings, wallets, and purses at home. Wear comfortable, loose-fitting clothing. If you wear glasses or contacts, please bring a case. SPECIAL INSTRUCTIONS: If instructed, bring your first voided urine specimen with you. If you were provided skin preparation to use prior to your procedure, complete this as directed. If a bowel preparation has been ordered by your physician, it is very important to follow the bowel prep instructions or your procedure may need to be rescheduled. If you use crutches or a walker, bring them with you. If you have a home CPAP/BIPAP machine, bring it with you. If you were instructed to complete a fleets enema or bowel prep, complete as directed. Bring copy of Living Will/Power of Band Cutting Machine Operator. Do not smoke or chew. If you use tobacco, quit or at least cut down before surgery. Do not smoke or chew after midnight the day before your surgery. This effects bleeding, infection, healing, and so much more. Do not take any Diet or Herbal Supplements 2 weeks prior to your surgery date. Please notify your physician if there is any change in your physical condition such as a cold, cough, fever, sore throat, or skin irritation near the surgical site. Visitors under the age of 14 are restricted in the Surgery Center. UPON ARRIVAL: Access to [facility] (the [facility] building) is located on [address] Child Care Group Leader parking is available for your convenience from 5am-5pm- there is a $5.00 charge for this service. Take the elevators directly inside the entrance to the 1st Floor Surgery Lobby. Sign in at the podium located to the left when you get off the elevators. A payment may be expected at the time of service. One visitor may come back to the preoperative area with you. The preoperative staff will be reviewing your medical history, please let them know if you prefer not to have a visitor with you during this time. Once you are ready for your procedure, two visitors at a time are permitted in your preprocedure room. [facility] 09-27-2024 Note HNO ID: [id number] Author: MADISON GARCIAS APRN.CNP Service: ? Author Type: Nurse Practitioner Type: Progress Notes Filed: 09/27/2024 15:43 Note Text: Summary: PAT REVIEW 64 yo male with HX: anxiety, depression, PTSD, lung nodule, AAA, thyroid disease, BOBBY-noncompliant with cpap, BPH, IBS, HLD, Factor 5 Leiden mutation-heterozygous CAROTIDS 12/2022: 20-39% bilat SPECT 02/2020 CONCLUSIONS: 1. SPECT Perfusion Study: Normal. 2. There is no scintigraphic evidence for inducible ischemia. 3. No evidence of scarred myocardium. 4. Left ventricle is normal in size. The left ventricle systolic function is normal. 5. Right ventricle is normal in size. 6. This is a low risk scan. LVEF % 69 Echo 02/2020 CONCLUSIONS: - Exam indication: Chest Pain - The left ventricle is small. Left ventricular systolic function is normal. EF = 61 ? 5% (2D biplane) Normal left ventricular diastolic function. - The right ventricle is normal in size. Right ventricular systolic function is normal. - There are no significant valvular abnormalities. - The patient has not had a prior CC echocardiographic exam for comparison. [facility] 09-27-2024 Note HNO ID: [id number] Author: MADISON GARCIAS APRN.TIMUR Service: ? Author Type: Nurse Practitioner Type: Progress Notes Filed: 09/27/2024 15:38 Note Text: Summary: DO [facility] MEDICATION INSTRUCTIONS PRIOR TO SURGERY Please read below carefully for your personalized instructions. Medications: If you are on blood thinner or anticoagulants including aspirin, please confirm with your surgical team on when to stop these medications. Unless instructed differently by your surgical team, stay on all of your medications until your surgery. Pre Surgery Med Instructions Medication instructions Aspirin 81 mg tab Follow prescriber's instructions. calcium carbonate/vitamin D3 (CALCIUM 500 + D, D3, ORAL) Follow surgeon's instructions. cholecalciferol (VITAMIN D-3) 5,000 unit tab Follow surgeon's instructions. clonazePAM (KLONOPIN) 1 mg tablet Continue as prescribed. CPAP dicyclomine (BENTYL) 10 mg capsule Continue as prescribed. finasteride (PROSCAR) 5 mg tablet Continue as prescribed. FLUoxetine (PROZAC) 40 mg capsule Continue as prescribed. melatonin 5 mg chew rosuvastatin (CRESTOR) 20 mg tablet Continue as prescribed. If you have any medication changes between receiving these instructions and your surgery date, please provide this updated information with the nurse who calls you the week day prior to your surgical procedure so we can update your list and provide you with updated instructions for the morning of your procedure. [facility] 09-17-2024 Telephone encounter Note Images from the original note were not included. Clemencia Price MD Smith-Mizik, Marryssa Anne On day of OR, cysto, add L use diagnostic dont need laser [facility] 09-17-2024 Miscellaneous Notes Images from the original note were not included. Clemencia Price MD Smith-Mizik, Marryssa Anne On day of OR, cysto, add L use diagnostic dont need laser documented in this encounter [facility] 09-16-2024 Note HNO ID: [id number] Author: CLEMENCIA PRICE MD Service: ? Author Type: Physician Type: Progress Notes Filed: 09/16/2024 11:51 Note Text: [facility] ESTABLISHED PATIENT OFFICE VISIT Patient presents with: Blood In Urine: Patient here today to discuss having his Cystoscopy HISTORY OF PRESENT ILLNESS Kacey Bentley is a 64 year old male who is here for follow up gross hematuria 1 day but had been on Augmentin for dog bite, was loading laundry bending over and sudden, V severe LLQ pain (had to crawl up stairs, passed out on couch?) sudden urge to void at home and gross hem, and then to ER, (gross again)no pain since that brief event, then cleared by days end, never prior Had severe sweating/nausea ??? Did not feel like prior stone? Noct 0x, day q 3-5hr, flow good, no dribbles or prior uti's Reviewed ct and pics, dw do to pain on L and ct findings of L distal ureter, plan dx use on L CTU--09/10/2024 8:46 AM - Radiology, Oru In Impression IMPRESSION: 1. No urinary tract calculi or renal solid masses identified. 2. Nondiagnostic evaluation of portions of the mid to distal right ureter and long segment of the mid to distal left ureter due to nonopacification during this study. Otherwise, no CT evidence of urothelial lesion. 3. Mildly enlarged prostate. Correlate with PSA levels. 4. 3 cm abdominal aortic aneurysm. Review of Systems The remainder of the ROS was reviewed and is negative. LAB Creatinine Date Value Ref Range Status 09/04/2024 1.27 (H) 0.73 - 1.22 mg/dL Final PSA (ng/mL) Date Value 07/31/2019 0.20 05/13/2019 0.16 PSA Screening (ng/mL) Date Value 10/20/2021 0.26 05/18/2018 0.10 12/06/2016 0.10 03/26/2013 0.28 GLUCOSE UA (POCT) (mg/dL) Date Value 09/16/2024 Negative BILIRUBIN UA (POCT) (no units) Date Value 09/16/2024 Negative KETONE UA (POCT) (mg/dL) Date Value 09/16/2024 Negative SPECIFIC GRAVITY UA (POCT) (no units) Date Value 09/16/2024 1.015 HEMOGLOBIN/BLOOD UA (POCT) (no units) Date Value 09/16/2024 Negative PH UA (POCT) (no units) Date Value 09/16/2024 7.5 PROTEIN UA (POCT) (mg/dL) Date Value 09/16/2024 Negative UROBILINOGEN UA (POCT) (E.U./dL) Date Value 09/16/2024 0.2 NITRITE UA (POCT) (no units) Date Value 09/16/2024 Negative LEUKOCYTES UA (POCT) (no units) Date Value 09/16/2024 Negative COLOR UA (POCT) (no units) Date Value 09/16/2024 Yellow CLARITY UA (POCT) (no units) Date Value 09/16/2024 Clear ] MEDICATIONS Aspirin 81 mg tab Take 81 mg by mouth. rosuvastatin (CRESTOR) 20 mg tablet Take 1 tablet by mouth once daily. FLUoxetine (PROZAC) 40 mg capsule Take 1 capsule by mouth once daily. finasteride (PROSCAR) 5 mg tablet Take 1 tablet by mouth once daily. melatonin 5 mg chew Take 1 tablet by mouth daily at bedtime. dicyclomine (BENTYL) 10 mg capsule Take 1 capsule by mouth before meals and at bedtime. For bowels/irritable bowels clonazePAM (KLONOPIN) 1 mg tablet Take 1 tablet by mouth daily at bedtime for 180 days. Patient should start on September 03, 2024. 0 HISTORIES PAST MEDICAL HISTORY Diagnosis Date Arthritis [...] Relation Age of Onset Emphysema Mother 62 Heart Attack Father No Known Problems Sister No Known Problems Sister Heart Attack Sister No Known Problems Sister No Known Problems Sister Colon Cancer Brother 58 Heart Attack Brother No Known Problems Brother No Known Problems Maternal Grandmother other (black lung) Maternal Grandfather Heart Paternal Grandmother Heart Paternal Grandfather No Ocular Disease No Family History SOCIAL HISTORY Social History Tobacco Use Smoking status: Former Current packs/day: 0.00 Average packs/day: 1.3 packs/day for 35.0 years (43.8 ttl pk-yrs) Types: Cigarettes Start date: 02/20/1970 Quit date: 02/20/2005 Years since quittin.5 Smokeless tobacco: Never Vaping Use Vaping status: Never Used Substance Use Topics Alcohol use: Not Currently Comment: Quit 04/29/2024 Drug use: Yes Frequency: 7.0 times per week Types: Marijuana Comment: uses daily There were no vitals taken for this visit. Physical Exam Visit complexity inherent to evaluation and management associated with medical care services that serve as the continuing focal point for all needed health care services and/or with medical care services (more content not included)... [facility] 09-16-2024 History of Presen t illness Narrative Images from the original note were not included. [facility] ESTABLISHED PATIENT OFFICE VISIT Patient presents with: Blood In Urine: Patient here today to discuss having his Cystoscopy HISTORY OF PRESENT ILLNESS Kacey Bentley is a 64 year old male who is here for follow up gross hematuria 1 day but had been on Augmentin for dog bite, was loading laundry bending over and sudden, V severe LLQ pain (had to crawl up stairs, passed out on couch?) sudden urge to void at home and gross hem, and then to ER, (gross again)no pain since that brief event, then cleared by days end, never prior Had severe sweating/nausea ??? Did not feel like prior stone? Noct 0x, day q 3-5hr, flow good, no dribbles or prior uti's Reviewed ct and pics, dw do to pain on L and ct findings of L distal ureter, plan dx use on L CTU--09/10/2024 8:46 AM - Radiology, Oru In Impression IMPRESSION: 1. No urinary tract calculi or renal solid masses identified. 2. Nondiagnostic evaluation of portions of the mid to distal right ureter and long segment of the mid to distal left ureter due to nonopacification during this study. Otherwise, no CT evidence of urothelial lesion. 3. Mildly enlarged prostate. Correlate with PSA levels. 4. 3 cm abdominal aortic aneurysm. Review of Systems The remainder of the ROS was reviewed and is negative. LAB Creatinine Date Value Ref Range Status 09/04/2024 1.27 (H) 0.73 - 1.22 mg/dL Final PSA (ng/mL) Date Value 07/31/2019 0.20 05/13/2019 0.16 PSA Screening (ng/mL) Date Value 10/20/2021 0.26 05/18/2018 0.10 12/06/2016 0.10 03/26/2013 0.28 GLUCOSE UA (POCT) (mg/dL) Date Value 09/16/2024 Negative BILIRUBIN UA (POCT) (no units) Date Value 09/16/2024 Negative KETONE UA (POCT) (mg/dL) Date Value 09/16/2024 Negative SPECIFIC GRAVITY UA (POCT) (no units) Date Value 09/16/2024 1.015 HEMOGLOBIN/BLOOD UA (POCT) (no units) Date Value 09/16/2024 Negative PH UA (POCT) (no units) Date Value 09/16/2024 7.5 PROTEIN UA (POCT) (mg/dL) Date Value 09/16/2024 Negative UROBILINOGEN UA (POCT) (E.U./dL) Date Value 09/16/2024 0.2 NITRITE UA (POCT) (no units) Date Value 09/16/2024 Negative LEUKOCYTES UA (POCT) (no units) Date Value 09/16/2024 Negative COLOR UA (POCT) (no units) Date Value 09/16/2024 Yellow CLARITY UA (POCT) (no units) Date Value 09/16/2024 Clear ] MEDICATIONS Aspirin 81 mg tab Take 81 mg by mouth. rosuvastatin (CRESTOR) 20 mg tablet Take 1 tablet by mouth once daily. FLUoxetine (PROZAC) 40 mg capsule Take 1 capsule by mouth once daily. finasteride (PROSCAR) 5 mg tablet Take 1 tablet by mouth once daily. melatonin 5 mg chew Take 1 tablet by mouth daily at bedtime. dicyclomine (BENTYL) 10 mg capsule Take 1 capsule by mouth before meals and at bedtime. For bowels/irritable bowels clonazePAM (KLONOPIN) 1 mg tablet Take 1 tablet by mouth daily at bedtime for 180 days. Patient should start on September 03, 2024. 0 HISTORIES PAST MEDICAL HISTORY Diagnosis Date Arthritis [...] Relation Age of Onset Emphysema Mother 62 Heart Attack Father No Known Problems Sister No Known Problems Sister Heart Attack Sister No Known Problems Sister No Known Problems Sister Colon Cancer Brother 58 Heart Attack Brother No Known Problems Brother No Known Problems Maternal Grandmother other (black lung) Maternal Grandfather Heart Paternal Grandmother Heart Paternal Grandfather No Ocular Disease No Family History SOCIAL HISTORY Social History Tobacco Use Smoking status: Former Current packs/day: 0.00 Average packs/day: 1.3 packs/day for 35.0 years (43.8 ttl pk-yrs) Types: Cigarettes Start date: 02/20/1970 Quit date: 02/20/2005 Years since quittin.5 Smokeless tobacco: Never Vaping Use Vaping status: Never Used Substance Use Topics Alcohol use: Not Currently Comment: Quit 04/29/2024 Drug use: Yes Frequency: 7.0 times per week Types: Marijuana Comment: uses daily There were no vitals taken for this visit. Physical Exam Visit complexity inherent to evaluation and management associated with medical care services that serve as the continuing focal point for all needed health care services and/or with medical care services that are part of ongoing care related to a patient s single, serious condition or a complex condition. ASSESSMENT/PLAN: 1. Hematuria, unspecified type [R31.9] - ICD9: 599.70, ICD10: R31.9 (primary diagnosis) See note 2. Gross hematuria - ICD9: 599.71, ICD10: R31.0 1 day after severe brief LLQ pain event but not like prior stone? Did take augmentin recent-dog bite? 09/04/24 CTU--L distal ureter no seen? Plan cysto and L use/dx semi rigid scope 3. Benign prostatic hyperplasia with weak urinary stream - ICD9: 600.01, 788.62, ICD10: N40.1, R39.12 On finasteride 10-15 yrs stable 4. Incomplete bladder emptying - ICD9: 788.21, ICD10: R33.9 5.Renal stone- 15 years ago, Clemencia Price MD This note was partially created using voice recognition software and is inherently subject to errors including those of syntax and "sound-alike" substitutions which may escape proofreading. In such instances, original meaning may be extrapolated by contextual derivation. documented in this encounter [facility] 09-13-2024 Telephone encounter Note Called patient to schedule, could only come in on Monday next . Scheduled with Dr. Price per note [facility] 09-13-2024 Miscellaneous Notes Called patient to schedule, could only come in on Monday next . Scheduled with Dr. Price per note Images from the original note were not included. Clemencia Price MD P Urol [facility] Pt is scheduled for cysto but I want to see pt next week to better plan his procedure and meet. Previous Messages ----- Message ----- From: Glo Molina Sent: 09/11/2024 3:47 PM EDT To: Clemencia Prcie MD Subject: Case [id number] Scheduled: Patient * You are receiving this message because you are assigned as the primary surgeon for this case. Your surgery request has been scheduled on 10/01/2024 in OR 07. Please access Case [id number] by clicking on the blue case link in the Case Information above to enter in day of surgery orders and any other documentation that is needed for the case. You will need to forward to another caregiver to complete the work (like a resident or METAL WIRE COATING OPERATOR/PA) if you have additional team members assisting you. Procedure(s): CYSTOSCOPY (N/A) documented in this encounter [facility] 09-13-2024 Telephone encounter Note Images from the original note were not included. Clemencia Price MD P Urol [facility] Pt is scheduled for cysto but I want to see pt next week to better plan his procedure and meet. Previous Messages ----- Message ----- From: Glo Molina Sent: 09/11/2024 3:47 PM EDT To: Clemencia Price MD Subject: Case [id number] Scheduled: Patient * You are receiving this message because you are assigned as the primary surgeon for this case. Your surgery request has been scheduled on 10/01/2024 in OR 07. Please access Case [id number] by clicking on the blue case link in the Case Information above to enter in day of surgery orders and any other documentation that is needed for the case. You will need to forward to another caregiver to complete the work (like a resident or METAL WIRE COATING OPERATOR/PA) if you have additional team members assisting you. Procedure(s): CYSTOSCOPY (N/A) [facility] 09-06-2024 Telephone encounter Note Called pt and made him aware it has been sent to Dr. Price and we will call him back. Carlos Wheeler [facility] 09-06-2024 Miscellaneous Notes Called pt and made him aware it has been sent to Dr. Price and we will call him back. Carlos Wheeler How to proceed? Spouse anxious to connect with Dr Ordonez's office. Spouse was scheduled for a cystoscopy with Dr Ordonez in [place] on 09/10/24. She said that her has to have the cystoscopy under anesthesia; she said that he flails/is unable to be still. Since the procedure of 09/10/[address] Ordonez was scheduled in the office, the appointment has been canceled. Patient sees Clarisse Cee in [place]. Please call spouse to assist/arrange procedure so that it accommodates patient's special needs. Patient's called to clarify that patient's cystoscopy on 09/10 is to be in OR under anesthesia. 09/10 patient is scheduled in office cystoscopy Please advise next steps Roro Plata RN documented in this encounter [facility] 09-06-2024 Telephone encounter Note How to proceed? [facility] 09-05-2024 Telephone encounter Note Spouse anxious to connect with Dr Ordonez's office. Spouse was scheduled for a cystoscopy with Dr Ordonez in [place] on 09/10/24. She said that her has to have the cystoscopy under anesthesia; she said that he flails/is unable to be still. Since the procedure of 09/10/[address] Ordonez was scheduled in the office, the appointment has been canceled. Patient sees Clarisse Cee in [place]. Please call spouse to assist/arrange procedure so that it accommodates patient's special needs. T [facility] 09-05-2024 Telephone encounter Note Patient's called to clarify that patient's cystoscopy on 09/10 is to be in OR under anesthesia. 09/10 patient is scheduled in office cystoscopy Please advise next steps Roro Plata RN [facility] 09-04-2024 History of Presen t illness Narrative Radiology Service Progress Note DATE OF SERVICE: September 04, 2024 TIME: 3:55 PM PATIENT IDENTITY VERIFICATION COMPLETED USING TWO (2) STANDARD IDENTIFIERS: Name and Date of confirmed by patient verbally. FALL SCREENING: Has the patient had 2 falls in the last year or 1 fall with injury or currently using an Ambulatory Assistive Device (Walker, Cane, Wheelchair, Crutches, etc.)? No PATIENT GENDER DATA: Assigned male at PATIENT RELEVANT IMPLANT DATA REVIEWED: Yes PATIENT PRESENTS WITH AN IMPLANTABLE OR ATTACHED FISH SKINNING MACHINE FEEDER: No ALLERGIES: Reviewed and unchanged CONTRAST ALLERGY: NO. EXAM: CT -CONTRAST INDUCED NEPHROPATHY RISK FACTORS: Patient age > 60 years CREATININE: Creatinine Date Value Ref Range Status 09/04/2024 1.27 (H) 0.73 - 1.22 mg/dL Final 07/31/2023 1.16 0.73 - 1.22 mg/dL Final 03/29/2023 1.07 0.73 - 1.22 mg/dL Final Estimated Glomerular Filtration Rate Date Value Ref Range Status 09/04/2024 62 >=60 mL/min/1.73m Final Comment: Estimated Glomerular Filtration Rate (eGFR) is calculated using the 2020 CKD-EPI creatinine equation. This equation utilizes serum creatinine, sex, and age as parameters. The creatinine assay has traceable calibration to isotope dilution-mass spectrometry. Refer to KDIGO guidelines for clinical interpretation. In patients with unstable renal function, e.g. those with acute kidney injury, the eGFR may not accurately reflect actual GFR. eGFR- Date Value Ref Range Status 03/24/2021 >60 Final P.O.C.T. RESULTS: POC done: Yes, See Lab Tab September 04, 2024 TREATMENT: N/A PERIPHERAL IV DATA: Ambulatory: A peripheral IV was started in the Left antecubital site with a Angio cath: 22 gauge. RADIOLOGY DEPARTMENT: CT; Exam(s) Completed: Urogram SIGNATURE: ASHLYN Toth) PATIENT NAME: Kacey Bentley DATE: September 04, 2024 TIME: 3:55 PM documented in this encounter [facility] 09-04-2024 Note HNO ID: [id number] Author: ZA ARECHIGA RT(R) Service: ? Author Type: [employer] Type: Progress Notes Filed: 09/04/2024 15:55 Note Text: Radiology Service Progress Note DATE OF SERVICE: September 04, 2024 TIME: 3:55 PM PATIENT IDENTITY VERIFICATION COMPLETED USING TWO (2) STANDARD IDENTIFIERS: Name and Date of confirmed by patient verbally. FALL SCREENING: Has the patient had 2 falls in the last year or 1 fall with injury or currently using an Ambulatory Assistive Device (Walker, Cane, Wheelchair, Crutches, etc.)? No PATIENT GENDER DATA: Assigned male at PATIENT RELEVANT IMPLANT DATA REVIEWED: Yes PATIENT PRESENTS WITH AN IMPLANTABLE OR ATTACHED FISH SKINNING MACHINE FEEDER: No ALLERGIES: Reviewed and unchanged CONTRAST ALLERGY: NO. EXAM: CT -CONTRAST INDUCED NEPHROPATHY RISK FACTORS: Patient age > 60 years CREATININE: Creatinine Date Value Ref Range Status 09/04/2024 1.27 (H) 0.73 - 1.22 mg/dL Final 07/31/2023 1.16 0.73 - 1.22 mg/dL Final 03/29/2023 1.07 0.73 - 1.22 mg/dL Final Estimated Glomerular Filtration Rate Date Value Ref Range Status 09/04/2024 62 >=60 mL/min/1.73m? Final Comment: Estimated Glomerular Filtration Rate (eGFR) is calculated using the 2020 CKD-EPI creatinine equation. This equation utilizes serum creatinine, sex, and age as parameters. The creatinine assay has traceable calibration to isotope dilution-mass spectrometry. Refer to KDIGO guidelines for clinical interpretation. In patients with unstable renal function, e.g. those with acute kidney injury, the eGFR may not accurately reflect actual GFR. eGFR- Date Value Ref Range Status 03/24/2021 >60 Final P.O.C.T. RESULTS: POC done: Yes, See Lab Tab September 04, 2024 TREATMENT: N/A PERIPHERAL IV DATA: Ambulatory: A peripheral IV was started in the Left antecubital site with a Angio cath: 22 gauge. RADIOLOGY DEPARTMENT: CT; Exam(s) Completed: Urogram SIGNATURE: RT Navneet(R) PATIENT NAME: Kacey Bentley DATE: September 04, 2024 TIME: 3:55 PM [facility] 09-03-2024 Telephone encounter Note Called patient. Verified name and date of . Patient aware of order and will check in for CT Urogram as scheduled. Za Colón LPN [facility] 09-03-2024 Miscellaneous Notes Called patient. Verified name and date of . Patient aware of order and will check in for CT Urogram as scheduled. Za Colón LPN Please place order for creatinine order for pt , pt appt on 09/04/[address] documented in this encounter [facility] 09-03-2024 Telephone encounter Note Please place order for creatinine order for pt , pt appt on 09/04/[address] [facility] 08-30-2024 Telephone encounter Note Scheduled Nanda Bates [facility] 08-30-2024 Miscellaneous Notes Scheduled Nanda Bates Called patient. Verified name and date of . Patient informed of results- verbalizes understanding. Reviewed upcoming appointments but states he may have received a call from [facility] but is not certain and would like a call back to schedule. Za Colón LPN ----- Message from Clarisse Cee PA-C sent at 08/27/2024 3:56 PM EDT ----- No infection in the urine No cancer cells in urine, please continue the rest of the testing JANESSA Kay, TAY OMALLEY documented in this encounter [facility] 08-27-2024 Telephone encounter Note Called patient. Verified name and date of . Patient informed of results- verbalizes understanding. Reviewed upcoming appointments but states he may have received a call from [facility] but is not certain and would like a call back to schedule. Za Colón LPN [facility] 08-27-2024 Telephone encounter Note ----- Message from Clarisse Cee PA-C sent at 08/27/2024 3:56 PM EDT ----- No infection in the urine No cancer cells in urine, please continue the rest of the testing JANESSA Kay MT, PA-C [facility] 08-20-2024 Instructions Clarisse Cee PA-C - 08/20/2024 8:54 AM EDT - Continue taking Finasteride (ProScar) at your current dose as prescribed; no changes are needed. - Continue your daily low-dose (baby) aspirin as usual. - Increase plain water intake to about 64 ounces between 7:00 am and 7:00 pm to help reduce bladder urgency. - A urine culture and urine cytology will be performed on the sample you provided today; we will notify you of the results (expected by Monday or Monday). - Schedule a CT scan of your abdomen and pelvis with and without contrast before leaving today using the order provided. - Schedule a cystoscopy with the urology surgeon at [facility]; Millie will call you at [phone] to arrange this. If you miss her call, please return her call directly. - If your urine culture shows an infection, begin the prescribed antibiotic before the cystoscopy as directed. - If urine cytology shows tumor cells, we will still complete the CT scan and cystoscopy to locate any areas of concern. CT Urogram to be scheduled at [facility] Cystoscopy to scheduled at [facility] - Urology they will contact patient # [phone] Urine Culture Pending Urine Cytology - Pending documented in this encounter [facility] 08-20-2024 Note HNO ID: [id number] Author: CLARISSE CEE PA-C Service: ? Author Type: Physician Patient Registration Manager Type: Progress Notes Filed: 08/26/2024 09:45 Note Text: [facility] PATIENT CLINIC NOTE (M) Note was generated by [facility] [employer] and edited as appropriate SERVICE DATE: August 20, 2024 NAME: Kacey Bentley GENDER: male CHIEF COMPLAINT: The patient is a 64-year-old male with a history of BPH, presenting for evaluation of gross hematuria. HISTORY OF PRESENT ILLNESS: The patient is a 64-year-old male with a history of BPH, presenting for evaluation of gross hematuria. Hematuria: - Gross hematuria noted on 11/18. - Recent CT scan without contrast showed no stones or abnormalities. - Hematuria has resolved; only trace blood detected on dipstick today. - No blood noted in semen. BPH: - Taking finasteride for 10-15 years. - Reports urgency and incomplete bladder emptying. - Describes weak urine stream and sudden urgency. - Admits to being "usually dehydrated." LABS: PSA (ng/mL) Date Value 07/31/2019 0.20 05/13/2019 0.16 PSA Screening (ng/mL) Date Value 10/20/2021 0.26 05/18/2018 0.10 12/06/2016 0.10 03/26/2013 0.28 Testosterone (ng/dL) Date Value 05/13/2019 289 06/21/2018 368 06/30/2014 290 Hematocrit (%) Date Value 03/29/2023 42.5 09/12/2022 46.1 10/20/2021 43.8 03/24/2021 42.3 07/29/2020 43.7 02/28/2020 42.9 PSA (ng/mL) Date Value 07/31/2019 0.20 05/13/2019 0.16 PSA Screening (ng/mL) Date Value 10/20/2021 0.26 05/18/2018 0.10 12/06/2016 0.10 03/26/2013 0.28 Creatinine Date Value Ref Range Status 07/31/2023 1.16 0.73 - 1.22 mg/dL Final 03/29/2023 1.07 0.73 - 1.22 mg/dL Final 09/12/2022 1.06 0.73 - 1.22 mg/dL Final MEDICATIONS: melatonin 5 mg chew Take 1 tablet by mouth daily at bedtime. dicyclomine (BENTYL) 10 mg capsule Take 1 [...] tablet by mouth once daily. rosuvastatin (CRESTOR) 20 mg tablet Take 1 tablet by mouth once daily. iv contrast (will be provided with radiology test) CT Urogram WO/W Inject, intravenously, once for 1 dose.No IV access, insert saline lock prior to the beginning of sedation, infusion, injection of imaging exam. Discontinue saline lock post exam. If Pt. has a central line or IVAD, may access for administration according to line specific nursing protocol. Once exam is complete flush line and de-access according to line specific nursing protocol in the CT contrast administration guidelines link. 0.9 % sodium chloride (NACL 0.9%) infusion Administer at rate defined per CT contrast administration specifications. To be provided with radiology test. PAST MEDICAL HISTORY: PAST MEDICAL HISTORY Diagnosis Date Arthritis Colon polyps 03/26/2010 Dr. Salty Rodrigues, by c scope Depression Dyslipidemia Hyperlipemia BOBBY (obstructive sleep apnea) CPAP Personal history of colonic polyps 03/10/2016 tubular adenoma Sleep apnea PAST SURGICAL HISTORY: PAST SURGICAL HISTORY Procedure Laterality Date CARPAL TUNNEL 2012 both wrists COLONOSCOPY 2010 COLONOSCOPY GEN ANES 07/09/2020 Repeat in 5 years EGD 07/10/2020 PAST SURGICAL HISTORY OF Bone tumor age 14 PAST SURGICAL HISTORY OF deviated septum repair PROCEDURE RM-COLONSCOPY W/BX 11/2017 FAMILY HISTORY: FAMILY HISTORY Problem Relation Age of Onset Emphysema Mother 62 Heart Attack Father No Known Problems Sister No Known Problems Sister Heart Attack Sister No Known Problems Sister No Known Problems Sister Colon Cancer Brother 58 Heart Attack Brother No Known Problems Brother No Known Problems Maternal Grandmother other (black lung) Maternal Grandfather Heart Paternal Grandmother Heart Paternal Grandfather No Ocular Disease No Family History SOCIAL HISTORY: Social Connections: Moderately Integrated (10/05/2022) Social Connection and Isolation Panel [NHANES] Frequency of Communication with Friends and Family: Three times a week Frequency of Social Gatherings with Friends and Family: Once a week Attends Jehovah'S Witness Services: Never Active Member of Clubs or Organizations: Yes Attends Club or Organization Meetings: More than 4 times per year Marital Status: REVIEW OF SYSTEMS: Genitourinary: (+) urinary urgency, (+) weak urinary stream, (+) sensation of incomplete bladder emptying, (-) gross hematuria, (-) hematospermia PHYSICAL EXAMINATION: Blood pressure 112/70, pulse 76, temperature 36.6 ?C (97.8 ?F), temperature source Temporal, resp. rate 14, height 182.2 cm (5' 11.7 (more content not included)... [facility] 08-20-2024 History of Presen t illness Narrative Images from the original note were not included. [facility] PATIENT CLINIC NOTE (M) Note was generated by [facility] [employer] and edited as appropriate SERVICE DATE: August 20, 2024 NAME: Kacey Bentley GENDER: male CHIEF COMPLAINT: The patient is a 64-year-old male with a history of BPH, presenting for evaluation of gross hematuria. HISTORY OF PRESENT ILLNESS: The patient is a 64-year-old male with a history of BPH, presenting for evaluation of gross hematuria. Hematuria: - Gross hematuria noted on 11/18. - Recent CT scan without contrast showed no stones or abnormalities. - Hematuria has resolved; only trace blood detected on dipstick today. - No blood noted in semen. BPH: - Taking finasteride for 10-15 years. - Reports urgency and incomplete bladder emptying. - Describes weak urine stream and sudden urgency. - Admits to being "usually dehydrated." LABS: PSA (ng/mL) Date Value 07/31/2019 0.20 05/13/2019 0.16 PSA Screening (ng/mL) Date Value 10/20/2021 0.26 05/18/2018 0.10 12/06/2016 0.10 03/26/2013 0.28 Testosterone (ng/dL) Date Value 05/13/2019 289 06/21/2018 368 06/30/2014 290 Hematocrit (%) Date Value 03/29/2023 42.5 09/12/2022 46.1 10/20/2021 43.8 03/24/2021 42.3 07/29/2020 43.7 02/28/2020 42.9 PSA (ng/mL) Date Value 07/31/2019 0.20 05/13/2019 0.16 PSA Screening (ng/mL) Date Value 10/20/2021 0.26 05/18/2018 0.10 12/06/2016 0.10 03/26/2013 0.28 Creatinine Date Value Ref Range Status 07/31/2023 1.16 0.73 - 1.22 mg/dL Final 03/29/2023 1.07 0.73 - 1.22 mg/dL Final 09/12/2022 1.06 0.73 - 1.22 mg/dL Final MEDICATIONS: melatonin 5 mg chew Take 1 tablet by mouth daily at bedtime. dicyclomine (BENTYL) 10 mg capsule Take 1 [...] tablet by mouth once daily. rosuvastatin (CRESTOR) 20 mg tablet Take 1 tablet by mouth once daily. iv contrast (will be provided with radiology test) CT Urogram WO/W Inject, intravenously, once for 1 dose.No IV access, insert saline lock prior to the beginning of sedation, infusion, injection of imaging exam. Discontinue saline lock post exam. If Pt. has a central line or IVAD, may access for administration according to line specific nursing protocol. Once exam is complete flush line and de-access according to line specific nursing protocol in the CT contrast administration guidelines link. 0.9 % sodium chloride (NACL 0.9%) infusion Administer at rate defined per CT contrast administration specifications. To be provided with radiology test. PAST MEDICAL HISTORY: PAST MEDICAL HISTORY Diagnosis Date Arthritis Colon polyps 03/26/2010 Dr. Salty Rodrigues, by c scope Depression Dyslipidemia Hyperlipemia BOBBY (obstructive sleep apnea) CPAP Personal history of colonic polyps 03/10/2016 tubular adenoma Sleep apnea PAST SURGICAL HISTORY: PAST SURGICAL HISTORY Procedure Laterality Date CARPAL TUNNEL 2012 both wrists COLONOSCOPY 2010 COLONOSCOPY GEN ANES 07/09/2020 Repeat in 5 years EGD 07/10/2020 PAST SURGICAL HISTORY OF Bone tumor age 14 PAST SURGICAL HISTORY OF deviated septum repair PROCEDURE RM-COLONSCOPY W/BX 11/2017 FAMILY HISTORY: FAMILY HISTORY Problem Relation Age of Onset Emphysema Mother 62 Heart Attack Father No Known Problems Sister No Known Problems Sister Heart Attack Sister No Known Problems Sister No Known Problems Sister Colon Cancer Brother 58 Heart Attack Brother No Known Problems Brother No Known Problems Maternal Grandmother other (black lung) Maternal Grandfather Heart Paternal Grandmother Heart Paternal Grandfather No Ocular Disease No Family History SOCIAL HISTORY: Social Connections: Moderately Integrated (10/05/2022) Social Connection and Isolation Panel [NHANES] Frequency of Communication with Friends and Family: Three times a week Frequency of Social Gatherings with Friends and Family: Once a week Attends Jehovah'[employer] Witness Services: Never Active Member of Clubs or Organizations: Yes Attends Club or Organization Meetings: More than 4 times per year Marital Status: REVIEW OF SYSTEMS: Genitourinary: (+) urinary urgency, (+) weak urinary stream, (+) sensation of incomplete bladder emptying, (-) gross hematuria, (-) hematospermia PHYSICAL EXAMINATION: Blood pressure 112/70, pulse 76, temperature 36.6 C (97.8 F), temperature source Temporal, resp. rate 14, height 182.2 cm (5' 11.75"), weight 84.4 kg (186 lb), SpO2 97%. General: Alert & oriented, no acute distress Skin: Normal HEENT: Pupils equal, round. Oral cavity, oropharynx clear Neck: Supple, no mass Breast: Deferred Respiratory: Clear to auscultation, bilaterally Cardiovascular: Regular rate and rhythm, no murmurs, rubs, or gallops Abdomen: Soft, non-tender, non-distended, no masses palpable, no hepatosplenomegaly, normal bowel sounds Genitourinary: Deferred MSK: Back is non-tender Extremities: No clubbing, cyanosis, or edema PROBLEM LIST REVIEW: Yes LABS: Results for orders placed or performed in visit on 08/20/24 UA DIP, URINE (POC) Result Value Ref Range GLUCOSE UA (POCT) Negative Negative mg/dL BILIRUBIN UA (POCT) Negative Negative KETONE UA (POCT) Negative Negative mg/dL SPECIFIC GRAVITY UA (POCT) >=1.030 1.005 - 1.030 HEMOGLOBIN/BLOOD UA (POCT) Trace-intact (A) Negative PH UA (POCT) 5.5 4.5 - 8.0 PROTEIN UA (POCT) Negative Negative mg/dL UROBILINOGEN UA (POCT) 0.2 Normal E.U./dL NITRITE UA (POCT) Negative Negative LEUKOCYTES UA (POCT) Negative Negative COLOR UA (POCT) Yellow CLARITY UA (POCT) Slightly Cloudy Urine Culture: Pending Urine Cytology: Pending PROCEDURES: PVR: 0 ml IMAGING: CT Flank ABDOMEN/PELVIS WITHOUT CONT 08/18/2024 FINDINGS: Dependent atelectasis. Normal heart size. Normal liver, gallbladder, pancreas, spleen, adrenal glands, kidneys. No hydronephrosis or ureteral stone. Unremarkable bladder. No retroperitoneal or pelvic adenopathy. Borderline prominent infrarenal aorta,3 cm maximum AP dimension. No free air. Nondistended bowel. Normal appendix. No acute large bowel findings. Lumbar spine degeneration. CT Urogram - Pending ASSESSMENT/PLAN: 1. Gross hematuria (R31.0) 2. Screening for genitourinary condition (Z13.89) - Recent episode of gross hematuria on 11/18 at [facility]; CT scan without contrast showed no stones or significant abnormalities. Trace hematuria on today's urine dipstick. Initiated full workup to rule out malignancy, including bladder cancer. Ordered urine culture and urine cytology on today's sample. Scheduled CT scan with and without contrast to be done here. Referred for cystoscopy to be performed by [facility] Urologist at [facility]; discussed possibility of sedation with the surgeon. Serum creatinine level from 11/18 is adequate for contrast evaluation; no need for repeat. Patient is not on diabetic medications and takes low-dose aspirin, which is not contraindicated for the procedures. Results of urine tests expected by Monday or Monday; will notify patient of results and any further steps. Emphasized importance of completing all diagnostic steps to rule out malignancy. 3. Personal history of kidney stones (Z87.442) - Previous history of kidney stones with similar pain episodes; current episode of hematuria may be related but no stones visible on recent CT scan. Discussed possibility of spontaneous passage of a stone. No further action required at this time unless new symptoms arise. 4. Benign prostatic hyperplasia with weak urinary stream (N40.1) - Long-term use of Finasteride (Proscar) for BPH; patient reports persistent urgency and weak urinary stream. Advised increasing water intake to 64 ounces daily before 7 PM to reduce urinary symptoms. Cystoscopy will evaluate for any prostatic enlargement or obstruction. Discussed potential for procedural intervention to remove prostate tissue if obstruction is significant. No changes to current medication regimen at this time. New Diagnosis of unknown prognosis testing to follow > Follow-up to be determined by testing ordered today > Will contact patient with the Results & Recommendations once testing is completed CT Urogram to be scheduled at [facility] Cystoscopy to scheduled at [facility] - Urology they will contact patient # [phone] Urine Culture Pending Urine Cytology - Pending Patient Instructions (AVS) - printed for patient - Continue taking Finasteride (ProScar) at your current dose as prescribed; no changes are needed. - Continue your daily low-dose (baby) aspirin as usual. - Increase plain water intake to about 64 ounces between 7:00 am and 7:00 pm to help reduce bladder urgency. - A urine culture and urine cytology will be performed on the sample you provided today; we will notify you of the results (expected by Monday or Monday). - Schedule a CT scan of your abdomen and pelvis with and without contrast before leaving today using the order provided. - Schedule a cystoscopy with the urology surgeon at [facility]; Millie will call you at [phone] to arrange this. If you miss her call, please return her call directly. - If your urine culture shows an infection, begin the prescribed antibiotic before the cystoscopy as directed. - If urine cytology shows tumor cells, we will still complete the CT scan and cystoscopy to locate any areas of concern. Consultation requested by Jules Haynes MD defined for this encounter. for an opinion regarding Kacey Bentley patient and my final recommendations will be communicated back to the requesting physician by way of shared Medical record or letter via [place] mail. Clarisse Cee, JANESSA, MT, PA-C Verified name and date of . CC Post Void Residual HPI: Kacey Bentley is a 64 year old male. The patient is here now for an appointment with JANESSA Kay MT, PA-COV. Procedure: Explained procedure to patient and verbalizes understanding. Performed a PVR. Patient urinated and instructed to empty bladder as much as possible just prior to having PVR done using bladder ultrasound scanner. Results of scan: x mL The patient tolerated the procedure well. Plan: Appointment with Clarisse. documented in this encounter [facility] 08-20-2024 Note HNO ID: [id number] Author: ZA COLÓN LPN Service: ? Author Type: LICENSED NURSE Type: Progress Notes Filed: 08/26/2024 09:45 Note Text: Verified name and date of . CC Post Void Residual HPI: Kacey Bentley is a 64 year old male. The patient is here now for an appointment with JANESSA Kay MT, PA-COV. Procedure: Explained procedure to patient and verbalizes understanding. Performed a PVR. Patient urinated and instructed to empty bladder as much as possible just prior to having PVR done using bladder ultrasound scanner. Results of scan: x mL The patient tolerated the procedure well. Plan: Appointment with Clarisse. [facility] 08-19-2024 Telephone encounter Note [facility] notified of request for records to be pushed. Za Colón LPN [facility] 08-19-2024 Miscellaneous Notes [facility] notified of request for records to be pushed. Za Colón LPN Faxed request for imaging/emergency room visit from [facility] on 08/18/2024. Za Colón LPN documented in this encounter [facility] 08-19-2024 Telephone encounter Note Fax[facility] [facility] on 08/18/2024. Za Colón LPN [facility] 08-19-2024 Telephone encounter Note Melatonin refilled Sushant Colmenares APRN.CNP [facility] 08-19-2024 Miscellaneous Notes Melatonin refilled Sushant Colmenares APRN.MANAGER MEDICARE Prescription Refill Information The patient has been identified by name and date of : Yes Caregiver verified no other encounters exist for this prescription request: Yes Caregiver confirmed with patient/requestor that no other refills are due, in the near future, with this provider at this time: Yes The last office visit in the department: 08/12/24 with Jose Colmenares Does the patient have a future office visit with this provider/department: Yes, 08/26/24 with Jose Colmenares Requested Prescriptions Pending Prescriptions Disp Refills melatonin 5 mg chew 30 tablet 5 Sig: Take 1 tablet by mouth daily at bedtime. ENRIQUE Funk August 19, 2024 1:03 PM documented in this encounter [facility] 08-19-2024 Telephone encounter Note Prescription Refill Information The patient has been identified by name and date of : Yes Caregiver verified no other encounters exist for this prescription request: Yes Caregiver confirmed with patient/requestor that no other refills are due, in the near future, with this provider at this time: Yes The last office visit in the department: 08/12/24 with Jose Colmenares Does the patient have a future office visit with this provider/department: Yes, 08/26/24 with Jose Colmenares Requested Prescriptions Pending Prescriptions Disp Refills melatonin 5 mg chew 30 tablet 5 Sig: Take 1 tablet by mouth daily at bedtime. ENRIQUE Funk August 19, 2024 1:03 PM [facility] 08-18-2024 Discharge summary [facility] 08-18-2024 Radiology Diagnostic study note [facility] [address], [place] [id number] Abdomen/Pelvis without Cont MR#: [id number] Acct: [id number] Name: KACEY BENTLEY Rep #: [id number] : 1960 M 64 From: Rashida Arita MD PCP: Dr. Jules Haynes, DO Status: RE G ER Study:Abdomen/Pelvis without Cont Date of Exa m: 08/18/24 Exam# [id number] Ordering Dr: Annie Roes PROCEDURE: ABDOMEN/PELVIS WITHOUT CONT 08/18/2024 REASON FOR EXAM: LLQ PAIN AND HEMATURIA TECHNIQUE: ABDOMEN/PELVIS WITHOUT CONT Noncontrast technique limits evaluation of the abdominal and pelvic viscera. Coronal and Sagittal reconstruction series were provided. One or more dose reduction techniques were used (e.g., Automated exposure control, adjustment of the mA and/or kV according to patient size, use of iterative reconstruction technique). COMPARISON: 09/05/2022 FINDINGS: Dependent atelectasis. Normal heart size. Normal liver, gallbladder, pancreas, spleen, adrenal glands, kidneys. No hydronephrosis or ureteral stone. Unremarkable bladder. No retroperitoneal or pelvic adenopathy. Borderline prominent infrarenal aorta,3 cm maximum AP dimension. No free air. Nondistended bowel. Normal appendix. No acute large bowel findings. Lumbar spine degeneration. CT/Abdomen/Pelvis without Cont IMPRESSION: No acute abdominopelvic findings. Reading Location: [place] [address] CC: Dr. Jules Haynes, DO; ADITYA Verma ~ Visiting Teacher: Signed [facility] 08-18-2024 Discharge summary Note Date/Time August 18, 2024 10:54pm [facility] Medical Records Department [address] [place] [address] Emergency Department Summary 08/18/24 MR#: [id number] Acct: [id number] Name: KACEY BENTLEY Rep #:[id number] : 1960 64 From: Annie BURGESS PCP: Dr. Jules Haynes DO Status:RE G ER Location: ED HPI <ADITYA Verma - Last Filed: 08/18/24 21:55> History of Present Illness Chief Complaint: Abd Pain Narrative Narrative: 64-year-old male with past medical history of hyperlipidemia, kidney stones, AAA, night terrors presents with abdominal pain. This afternoon he had the sudden urge to urinate and then a sharp pain in the left lower quadrant of his abdomen. He took a nap and when he woke up he urinated and it looked purple. No clots. He urinated again later and it looked pink. The LLQ pain has lessened but is still present. He denies fever or chills. No nausea or vomiting. Normal bowel movements. He had a kidney stone once before that passed on its own. He has a AAA they are monitoring. No abdominal surgeries. [facility] <ADITYA Verma - Last Filed: 08/18/24 21:55> [facility] Medical History BPH (benign prostatic hyperplasia) CPAP (continuous positive airway pressure) dependence Factor 5 Leiden mutation, heterozygous GERD (gastroesophageal reflux disease) Sleep apnea Home Medications ?Medication ?Instructions ?Recorded ?Last Taken ?Type amitriptyline 10 mg tablet 10 mg PO DAILY 09/17/22 Unk nown History cyclobenzaprine 10 mg tablet 10 mg PO TID PRN Muscle S pasm #15 09/17/22 Unknown Rx TABLETS finasteride 5 mg tablet 5 mg PO DAILY 09/17/22 Unkno wn History fluoxetine 10 mg capsule 10 mg PO DAILY 09/17/22 Unkn own History omeprazole 20 mg capsule,delayed 20 mg PO DAILY Unknown History release rosuvastatin 10 mg tablet 10 mg PO DAILY 09/17/22 Unkn own History tramadol 50 mg tablet 50 mg PO Q6H PRN pain 2 days #6 09/17/22 Unknown Rx tabs ciprofloxacin HCl 500 mg tablet 500 mg PO BID #6 TABLE TS 08/18/24 Unknown Rx Allergy/AdvReac Type Severity Reaction Status Date / Time No Known Allergies Allergy Verified 08/18/24 20:09 Family History Father Heart disease Hypertension Mother COPD (chronic obstructive pulmonary disease) Surgical History H/O excision of mass Social History (Updated 08/18/24 @ 20:13 by Damaris Dave) household members: spouse housing: house Smoking Status: Former smoker alcohol intake: current details: drinks 5-6 shots of whisky a day substance use type: marijuana ROS <ADITYA Verma - Last Filed: 08/18/24 21:55> ROS ED ROS Narrative Constitutional: Negative for fever, chills, malaise. CVS: Negative for chest pain. Respiratory: Negative for shortness of breath. GI: Positive for abdominal pain. Negative for nausea, vomiting, diarrhea, constipation, melena, hematochezia. : Positive for urgency, hematuria. EXAM <ADITYA Verma - Last Filed: 08/18/24 21:55> Physical Exam Narrative Exam Narrative: CONST: Patient appears comfortable walking around the room and then sitting in the bed in no distress. EYES: Normal inspection. NECK: Normal inspection. RESP: No respiratory distress, CTAB. CVS: Regular rate and rhythm, no murmur, no gallop. ABD: Soft and nontender, no guarding or rebound, nondistended. Back: Normal inspection, no CVA tenderness. SKIN: Color normal, no rash, warm, dry, intact. EXTREMITIES: Normal appearance, no pedal edema. NEURO: Alert and answering questions appropriately. PSYCH: Normal affect. Const Vital Signs: 08/18/24 20:09 08/18/24 22:08 Temperature 98 F Temperature Source Oral Pulse Rate 80 78 Respiratory Rate 18 18 Blood Pressure 119/87 H 128/70 H Blood Pressure Mean 97 89 Pulse Ox 98 98 Oxygen Delivery Method Room Air <Dr. Julian Sifuentes DO - Last Filed: 08/18/24 22:54> Physical Exam Const Vital Signs: 08/18/24 20:09 08/18/24 22:08 Temperature 98 F Temperature Source Oral Pulse Rate 80 78 Respiratory Rate 18 18 Blood Pressure 119/87 H 128/70 H Blood Pressure Mean 97 89 Pulse Ox 98 98 Oxygen Delivery Method Room Air MDM <ADITYA Verma - Last Filed: 08/18/24 21:55> [facility] MDM Narrative Medical decision making narrative: Differential includes but not limited to: Kidney stone, UTI, pyelonephritis 64-year-old male presents with urinary urgency, hematuria, and sudden onset leftlower quadrant abdominal pain. He has history of kidney stone x 1 in the past. His pain has subsided and he appears comfortable and nontoxic. Vitals are stable. Normal cardiopulmonary exam. He indicates he has pain in the lateral aspect of his left lower quadrant but there is no tenderness with palpation of his abdomen. No CVA tenderness. CBC is within normal limits. Electrolytes are unremarkable. Creatinine is 1.40. In the past it has ranged between 0.93-1.26 so this may be very minimally elevated. He was given IV fluids. He declined pain or nausea medication and appears very comfortable. CT scan shows no acute findings and no evidence of stone. His urine sample has gross hematuria and is pending analysis. Patient was advised he needs to follow-up with urologist to have this evaluated and that neoplasm is on the differential. I provided urology contact information but he states he would like to follow-up with [facility] and will call and make an appointment. Lab Data Attestation: I reviewed the patient's lab results. Labs: Laboratory Results - last 24 hr 08/18/24 08/18/24 20:23 21:52 WBC 9.4 RBC 4.35 L Hgb 13.9 Hct 39.9 L MCV 91.7 MCH 32.0 MCHC 34.8 RDW Std Deviation 40.1 RDW Coeff of [place] 11.8 Plt Count 178 MPV 10.1 Immature Gran % (Auto) 0.200 Neut % (Auto) 71.0 H Lymph % (Auto) 19.3 [place] % (Auto) 7.7 Eos % (Auto) 1.4 Baso % (Auto) 0.4 Absolute Neuts (auto) 6.6 Absolute Lymphs (auto) 1.80 Nucleated RBC % 0 Sodium 140 Potassium 4.0 Chloride 102 Carbon Dioxide 25.7 Anion Gap 12 BUN 17 Creatinine 1.30 H Estim Creat Clear Calc 59.53 Est GFR (MDRD) Non-Af 61 BUN/Creatinine Ratio 13.3 Glucose 104 H Calcium 9.9 Urine Color Brown Urine Clarity Cloudy Urine pH 6.5 Ur Specific [place] 1.020 Urine Protein 500 H Urine Glucose (UA) Normal Urine Ketones 5 H Urine Occult Blood 250 H Urine Nitrite Negative Urine Bilirubin Negative Urine Urobilinogen 1 H Ur Leukocyte Esterase 25 H Urine RBC > 100 SEEN Urine WBC 10-25 SEEN Ur Squamous Epith Cells 0-5 SEEN Urine Bacteria RARE Urine Mucus 1+ Radiography Diagnostic Testing: Clinical Impression(s) from Imaging Studies Abdomen/Pelvis CT 08/18/24 20:19 IMPRESSION: No acute abdominopelvic findings. Reading Location: [facility] <Dr. Julian Sifuentes, DO - Last Filed: 08/18/24 22:54> [facility] Lab Data Labs: Laboratory Results - last 24 hr 08/18/24 08/18/24 20:23 21:52 WBC 9.4 RBC 4.35 L Hgb 13.9 Hct 39.9 L MCV 91.7 MCH 32.0 MCHC 34.8 RDW Std Deviation 40.1 RDW Coeff of [place] 11.8 Plt Count 178 MPV 10.1 Immature Gran % (Auto) 0.200 Neut % (Auto) 71.0 H Lymph % (Auto) 19.3 [place] % (Auto) 7.7 Eos % (Auto) 1.4 Baso % (Auto) 0.4 Absolute Neuts (auto) 6.6 Absolute Lymphs (auto) 1.80 Nucleated RBC % 0 Sodium 140 Potassium 4.0 Chloride 102 Carbon Dioxide 25.7 Anion Gap 12 BUN 17 Creatinine 1.30 H Estim Creat Clear Calc 59.53 Est GFR (MDRD) Non-Af 61 BUN/Creatinine Ratio 13.3 Glucose 104 H Calcium 9.9 Urine Color Brown Urine Clarity Cloudy Urine pH 6.5 Ur Specific [place] 1.020 Urine Protein 500 H Urine Glucose (UA) Normal Urine Ketones 5 H Urine Occult Blood 250 H Urine Nitrite Negative Urine Bilirubin Negative Urine Urobilinogen 1 H Ur Leukocyte Esterase 25 H Urine RBC > 100 SEEN Urine WBC 10-25 SEEN Ur Squamous Epith Cells 0-5 SEEN Urine Bacteria RARE Urine Mucus 1+ Radiography Diagnostic Testing: Clinical Impression(s) from Imaging Studies Abdomen/Pelvis CT 08/18/24 20:19 IMPRESSION: No acute abdominopelvic findings. Reading Location: [facility] Treatment and Re-Evaluation :: I have personally performed a face to face assessment of the patient and have reviewed the IVIS Note. I performed a substantive portion of the visit including all aspects of the following. My carl findings include: History: Patient presents with left flank pain that began tonight. Patient states it began rather suddenly. Patient states his pain is waxing and waning. Currently, patient denies any pain. Patient states it feels similar to prior kidney stone except that it has improved. Patient states his prior kidney stonebleeding was constant. Patient admits to some hematuria. Patient denies any fevers or chills. Patient denies any nausea or vomiting. Exam: Vital signs are stable. Patient is afebrile. Patient is in no acute distress. Oral mucosa is pink and moist. Neck is supple. Trachea is midline. There is no JVD. Heart was regular rate and rhythm. Lungs are clear and equal bilaterally. Abdomen is soft. Bowel sounds are normal. There is some mild left CVA tenderness. There is no rebound or guarding noted. Cranial nerves II through XII are intact. There are no focal motor or sensory deficits. Medical Decision Making: Differential diagnosis includes ureteral calculus, pyelonephritis, diverticulitis, and electrolyte abnormality. CT scan of the abdomen and pelvis will be obtained to assess for ureteral calculus and pyelonephritis. CBC will be obtained to assess for leukocytosis and anemia. Basic metabolic profile will be obtained to assess for electrolyte abnormality and renal function. Urinalysis will be obtained to assess for urinary tract infection and hematuria. CBC was reviewed and was within normal limits. Basic metabolic profile was reviewed. Creatinine was slightly elevated at 1.3. Urinalysis was reviewed. Occult blood was 250 with greater than 100 red blood cells. Leukocyte esterase was 25 with 10-25 white blood cells. There are 05 epithelial cells. There is rare bacteria. Urine culture was ordered. Patient was advised of his findings. Patient was given a short course for Cipro. Patient was instructed to take Tylenol or ibuprofen as needed for pain. Patient was instructed to return if worse in any way. Patient was instructed to follow-up with urology. Patient understood and was agreeable with plan. All questions were answered. Discharge Plan Triage Chief Complaint: Abd Pain ED Midlevel Provider: Annie Jones ED Provider: Julian Sifuentes Dx/Rx/DC Orders Clinical Impression: Hematuria, Abdominal pain Instructions: ED Hematuria Prescriptions: New ciprofloxacin HCl 500 mg tablet 500 mg PO BID Qty: 6 0RF No Action fluoxetine 10 mg capsule 10 mg PO DAILY finasteride 5 mg tablet 5 mg PO DAILY amitriptyline 10 mg tablet 10 mg PO DAILY omeprazole 20 mg capsule,delayed release(DR/EC) 20 mg PO DAILY rosuvastatin 10 mg tablet 10 mg PO DAILY cyclobenzaprine [cyclobenzaprine] 10 mg tablet 10 mg PO TID PRN (Reason: Muscle Spasm) Qty: 15 0RF tramadol 50 mg tablet 50 mg PO Q6H PRN (Reason: pain) 2 Days Qty: 6 0RF Primary Care Provider: Jules Haynes Referrals: Jules Haynes DO [Primary Care Provider] - Lebron Beverly MD [Med Staff - Active Staff] - Activity Restrictions/Additional Instructions: You need to call your urologist to make an appointment for evaluation of blood in your urine. Take Tylenol Motrin as needed for pain. If you have new or worsening symptoms please come back to the ER. Print Language: Macedonian Disposition Disposition: Home, Self Care What to do if you have Problems For any increased pain, shortness of breath, bleeding, nausea or vomiting, chestpain, or any unexpected problems, contact your Primary Care Provider. Call [facility] [facility] ([phone]) or report to the closest Emergency Room. Call 911 if necessary. 08/18/242201 <Electronically signed by Annie BURGESS> Cosigner Signature (if applicable): 08/18/242253 <Electronically signed by Julian Sifuentes DO> CC: Dr. Jules Haynes DO ~ Signed [facility] Work Phone: [phone]) 644-820806-23-2025 Instructions* Patient Instructions* Sushant Colmenares APRN.CNP - 08/12/2024 2:01 PM EDT Order for urine drug screen--aim to get it done in before your follow up appointment If unable to get a sooner appointment with Dr Reddy, contact me before you run out of your 6 month supply of clonazepam so I can give you a bridge prescription for one month [facility] History of Present illness Narrative* Sushant Colmenares APRN.CNP - 08/12/2024 1:30 PM EDT Images from the original note were not included. [facility] Follow up/ Established patient visit Recording using [employer] software for draft documentation of the visit was discussed with the patient/authorized call center support representative; all questions welcomed and answered. 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 [...] Index (AHI): 10, supine 22, off-supine 1.8, off- supine REM 3.4 Treatment : positional, goes from side to side, not comfortable on back Latest Reference Range & Units 01/08/24 11:32 Amphetamines, [...] results within acceptable limits Specimen Validity Specific [place] 1.003 - 1.035 1.027 !: Data is [...] are sorted in reverse-chronological order 12/15/2022 12/11/2023 Cos Cob Sleepiness Scale Score 13 (Excessive daytime sleepiness [...] population = 50. Five points is a clinicallymeaningful difference.) Physical T-Score 47.7 47.7 44.9 47.7 [...] approximately 4-5 times per night, with immediate returnto sleep. Notable for nightmares and physical movements during sleep, including bed sheet disarray.Previous episodes of falling out of bed and [...] - Refilled clonazepam prescription and sent to [facility] pharmacy. - Discussed potential impact of cannabis use on urine drug screen results; discussed that we preferhim to avoid cannibis along with benzodiazepine. - [...] on the side. No significant BOBBY observed inoff-supine position; more pronounced when supine. Patient naturally prefers side sleeping and reports discomfort when attempting to sleep on the back. - Continue current sleep positioning to minimize apneic events. He's not interested in PAP therapy. Sushant Colmenares APRN.TIMUR documented [facility] NoteHNO ID: [id number] Author: SUSHANT COLMENARES APRN.CNP Service: ? Author Type: Nurse Practitioner Type: Progress Notes Filed: 08/12/2024 16:55 Note Text: [facility] Follow up/ Established patient visit Recording using [employer] [facility] software for draft documentation of the visit was discussed with the patient/authorized call center support representative; all questions welcomed and answered. Patient/authorized call center support representative agreed to proceed Assessment/Plan from last visit: [...] patient adjust to sleep schedules more quickly. 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 [...] 55 Specimen Validity O (more content not included)...[facility] 08-08-2024 Telephone encounter Note* Telephone Encounter - Rand Villegas MA - 08/08/2024 9:36 AM EDT Looks like Neuro refilled on 08/06/24 [facility]06-19-2025 Miscellaneous Notes* Telephone Encounter - Rand Vlilegas MA - 08/08/2024 9:36 AM EDT Looks like Neuro refilled on 08/06/24 * Telephone Encounter - Rand Villegas MA - 08/02/2024 3:36 PM EDT Images from the original note were not included. See [employer] message below: JOSE RAMON Bentley Wstr [employer] [...] it. Thanks you Jonathan documented [facility] Telephone encounter Note * Telephone Encounter - Siria Singh - 08/06/2024 9:33 AM EDT Spouse called and made 6 mo follow up after 08/12 visit , however Dr Reddy's next opening was not until 03/31/2025 [facility]-17[facility]2025 Miscellaneous Notes* Telephone Encounter - Siria Singh - 08/06/2024 9:33 AM EDT Spouse called and made 6 mo follow up after 08/12 visit , however Dr Reddy's next opening was not until 03/31/2025 * Telephone Encounter - Sushant Colmenares APRN.CNP - 08/06/2024 7:37 AM EDT Images from the original note were not included. 30 day rx of clonazepam sent in since pt now has appointment with me. His 6 mo follow up after his July appointment with me will need to be with Dr Reddy. Sushant Colmenares APRN.CNP * Telephone Encounter - Lori Toro MA - 08/06/2024 7:09 AM EDT Pt scheduled with you on 08/12/24 at 1:30 pm. Notified to schedule 6 month f/u. Lori Toro MA * Telephone Encounter - Kimberly Vazquez RN - 08/05/2024 5:22 PM EDT Pt called and is notified of providers [...] Vazquez RN August 05, 2024 5:25 PM * Telephone Encounter - Lori Toro MA - 08/05/2024 4:40 PM EDT Attempted to reach Jonathan, received Christina JASMINE to return call to office and speak with Triage Nurse. Also sent [employer] message regarding appt time currently held with Andie Colmenares on Monday08/12/24 at1:30 pm. Advised pt/ to contact office and speak with Schedulers to assist in making an appt. Updated pt that in message that a prescription would be sent in once an appt is made, as well as a 6 month follow up with [address]. Reddy. Lori Toro MA * Telephone Encounter - Sushant Colmenares APRN.CNP - 08/05/2024 4:27 PM EDT I received a voice mail on my [...] he is scheduled with me. Sushant Colmenares APRN.CNP PDMP website checked and validated. All prescriptions have been APPROPRIATELY filled. No suspiciousactivity was identified. 08/05/2024 by Sushant Colmenares APRN.CNP documented in [facility] Telephone encounter Note * Telephone Encounter - Sushant Colmenares APRN.CNP - 08/06/2024 7:37 AM EDT Images from the original note were not included. 30 day rx of clonazepam sent in since pt now has appointment with me. His 6 mo follow up after his July appointment with me will need to be with Dr Reddy. Sushant Colmenares APRN.TIMUR [facility] Telephone encounter Note* Telephone Encounter - Lori Toro MA - 08/06/2024 7:09 AM EDT Pt scheduled with you on 08/12/24 at 1:30 pm. Notified to schedule 6 month f/u. Lori Toro MA [facility]06-16-2025 Telephone encounter Note* Telephone Encounter - Kimberly Vazquez RN - 08/05/2024 5:22 PM EDT Pt called and is notified of providers [...] Vazquez RN August 05, 2024 5:25 PM [facility] Telephone encounter Note* Telephone Encounter - Lori Toro MA - 08/05/2024 4:40 PM EDT Attempted to reach Jonathan, received . LM to return call to office and speak with Triage Nurse. Also sent [employer] message regarding appt time currently held with Andie Colmenares on Monday08/12/24 at1:30 pm. Advised pt/ to contact office and speak with Schedulers to assist in making an appt. Updated pt that in message that a prescription would be sent in once an appt is made, as well as a 6 [address] follow up with [address]. Reddy. Lori Toro MA [facility]06-16-2025 Telephone encounter Note* Telephone Encounter - Sushant Colmenares APRN.CNP - 08/05/2024 4:27 PM EDT I received a voice mail on my [...] All prescriptions have been APPROPRIATELY filled. No suspiciousactivity was identified. 08/05/2024 by Sushant Colmenares APRN.MANAGER MEDICARE [facility]06-15-2025 NoteHNO ID: [id number] Author: KENJI MARR PA-C Service: ? Author Type: Physician Patient Registration Manager Type: Progress Notes Filed: 08/04/2024 14:47 Note Text: This note was created using [employer]way [employer]. Subjective Kacey Bentley is a 64 year old male. Patient is a 64-year-old male who arrives for evaluation of redness and swelling to his left hand secondary to a dog bite injury that he sustained yesterday evening. Patient reports that he was at home trying to separate his 2 dogs while they were fighting when his [place] Ang quickly bit his radial left hand. [...] is current and that all of his [place] Ang's immunizations are also current. Patient has [...] the left index finger secondary to pain. Him Clerk is otherwise strong and equal. Neurological: General: [...] problems: low Diagnostic procedures: low Management options: low [facility]06-15-2025 History of Present illness Narrative* Kenji Marr PA-C - 08/04/2024 2:41 PM EDT This note was created using NoteWriter. Subjective Kacey Bentley is a 64 year old male. Patient is a 64-year-old male who arrives for evaluation of redness and swelling to his left hand secondary to a dog bite injury that he sustained yesterday evening. Patient reports that he was at home trying to separate his 2 dogs while they were fighting when his [place] Ang quickly bit his radial left hand. Patient states that the dog immediately released and he sustained no direct blow orcrush injury to his left hand. Patient has noted increased redness and swelling to the dorsal aspect of his left hand with pain radiating to his left index finger. Patient did not sustain any additional injury. Patient states that his tetanus immunization is current and that all of his [place]'s immunizations are also current. Patient has no history of diabetes and is not on anticoagulantmedication. Review of Systems Skin: Positive for wound. [...] left fingers and hand is intact. Patient demonstratesslightly decreased range of motion in flexion to the left index finger secondary to pain. Him Clerk is otherwise strong and equal. Neurological: General: [...] options: clari Marr PA-C documented in [facility] encounterThe [facility] Telephone encounter Note * Telephone Encounter - Rand Villegas MA - 08/02/2024 3:36 PM EDT Images from the original note were not included. See [employer] message below: JOSE RAMON Bentley tr [facility] My Chart Rx Pool Good afternoon, Dr. Haynes. I hope you re had a good week. Jose Ramon needs a refill for the Klonopin precription refill and he is out of the medicatio. We cannot get into see the nurologist or his PA until mid-August and we cannot go that long without it. Thanks you Jonathan [facility]-13[facility] Telephone encounter Note* Telephone Encounter - Rand Villegas MA - 08/02/2024 3:36 PM EDT See refill request August 02, 2024 [facility]-13[facility] Miscellaneous Notes* Telephone Encounter - Rand Villegas MA - 08/02/2024 3:36 PM EDT See refill request August 02, 2024 documented in this encounterThe [facility] Hospital06-13-[facility] Telephone encounter Note * Telephone Encounter - Eveline Curiel OCCA - 08/02/2024 1:34 PM EDT Bridge refill denied. TC to patient to provider scheduling number to see if sooner available with any provider. Patient asking for 08/26 appointment to be cancelled. Done. ENRIQUE Funk [facility] Miscellaneous Notes* Telephone Encounter - Eveline Curiel OCCA - 08/02/2024 1:34 PM EDT Bridge refill denied. TC to patient to provider scheduling number to see if sooner available with any provider. Patient asking for 08/26 appointment to be cancelled. Done. ENRIQUE Funk * Telephone Encounter - Eveline Curiel OCCA - 08/02/2024 9:05 AM EDT Prescription Refill Information The patient has been [...] this provider/department: No, TC to patient who isnow scheduled for follow up with Jose Colmenares [...] 02, 2024 9:05 AM documented in this encounterThe [facility]06-[facility] Telephone encounter Note * Telephone Encounter - Eveline Curiel OCCA - 08/02/2024 9:05 AM EDT Prescription Refill Information The patient has been [...] this provider/department: No, TC to patient who isnow scheduled for follow up with Jose Colmenares [...] ENRIQUE Funk August 02, 2024 9:05 AM [facility] Tele[facility] encounter Note* Telephone Encounter - Hanh Daley LPN - 05/13/2024 8:42 AM EDT Prescription Refill Information The patient has been [...] Daley LPN May 13, 2024 8:42 AM [facility]-24[facility] Miscellaneous Notes* Telephone Encounter - Hanh Daley LPN - 05/13/2024 8:42 AM EDT Prescription Refill Information The patient has been [...] 13, 2024 8:42 AM documented in this encounterThe [facility]03-[facility] Telephone encounter Note * Telephone Encounter - Hanh Daley LPN - 05/13/2024 8:40 AM EDT Prescription Refill Information The patient has been [...] Daley LPN May 13, 2024 8:41 AM [facility] Miscellaneous Notes* Telephone Encounter - Hanh Daley LPN - 05/13/2024 8:40 AM EDT Prescription Refill Information The patient has been [...] 13, 2024 8:41 AM documented in this encounterThe [facility]02-18-[facility] Telephone encounter Note * Telephone Encounter - Rand Villegas MA - 04/09/2024 8:57 AM EST Pt notified. Rand Villegas MA [facility] Miscellaneous Notes* Telephone Encounter - Rand Villegas MA - 04/09/2024 8:57 AM EST Pt notified. Rand Villegas MA * Telephone Encounter - Jules Haynes DO - 04/09/2024 8:23 AM EST Okay for rx as below Jules Haynes DO The following approved medication requests have been transmitted electronically. Requested Prescriptions Signed Prescriptions Disp Refills ibuprofen (MOTRIN) 800 mg tablet 100 tablet 1 Sig: Take 1 tablet by mouth three times a day as needed for pain or fever (specify temp.). Authorizing Provider: JULES HAYNES DO * Telephone Encounter - Hanh Daley LPN - 04/08/2024 2:30 PM EST Copied from phone encounter. Good morning. Jose Ramon hurt his shoulder muscle and we have tried advil and Tylenol but it does t work as well as my prescription of ibuprofen 800mg I had. Could he please have a prescription sent to [facility] in [place]. Thank you. Jonathan. documented in this encounterThe [facility]02-[facility] Telephone encounter Note * Telephone Encounter - Jules Haynes DO - 04/09/2024 8:23 AM EST Okay for rx as below Jules Haynes DO The following approved medication requests have been transmitted electronically. Requested Prescriptions Signed Prescriptions Disp Refills ibuprofen (MOTRIN) 800 mg tablet 100 tablet 1 Sig: Take 1 tablet by mouth three times a day as needed for pain or fever (specify temp.). Authorizing Provider: JULES HAYNES DO [facility] Telephone encounter Note* Telephone Encounter - Hanh Daley LPN - 04/08/2024 2:30 PM EST Copied from phone encounter. Good morning. Jose Ramon hurt his shoulder muscle and we have tried advil and Tylenol but it does t work as well as my prescription of ibuprofen 800mg I had. Could he please have a prescription sent to [facility] in [place]. Thank you. Jonathan. [facility] Telephone encounter Note* Telephone Encounter - Hanh Daley LPN - 04/08/2024 2:29 PM EST Turned into phone encounter for pt. [facility] Miscellaneous Notes* Telephone Encounter - Hahn Daley LPN - 04/08/2024 2:29 PM EST Turned into phone encounter for pt. documented in this encounterThe [facility] Hospital02-17-2025 Telephone encounter Note * Telephone Encounter - Lilo Chaney LPN - 04/08/2024 9:40 AM EST Prescription Refill Information The patient has been [...] Unclear as to why, but again taking Prozacat night which can trigger RBD symptoms in [...] Chaney LPN April 08, 2024 9:40 AM [facility] Miscellaneous Notes* Telephone Encounter - Lilo Chaney LPN - 04/08/2024 9:40 AM EST Prescription Refill Information The patient has been [...] Unclear as to why, but again taking Prozacat night which can trigger RBD symptoms in [...] 08, 2024 9:40 AM documented in this encounterThe [facility]02-03-2025 NoteHNO ID: [id number] Author: JULES HAYNES, DO Service: ? 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 Need for job coverage for these concerns. Sleep is being managed by Neurologist 4. 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 Need for job coverage for these concerns. Sleep is being managed by Neurologist 5. 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 Need for job coverage for these concerns. Sleep is being managed by Neurologist 6. PLMD (periodic limb movement disorder) - ICD9: 327.51, ICD10: G47.61 Okay to fill out FMLA papers for patient as he is at high risk to be overwhelmed, lack of sleep contributing to his symptoms with his work shifts/sched (more content not included)...[facility]02-03-2025 History of Present illness Narrative* Jules Haynes, - 03/25/2024 9:47 AM EST CC: Kacey Bentley is a 63 year old male who presents to the office for follow up HPI: Long standing issues with BOBBY/CPAP use and chronic insomnia, as well as his cardiac history. 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 Difficulty with focusing, concentrating and feeling very tired. No SI or HI. Has a lot of support from hiswife and family. Is doing his best to [...] nares without drainage, pharynx without erythema, exudate, lesions,or drainage. Uvula midline. 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 Need for job coverage for these concerns. Sleep is being managed by Neurologist 4. 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 Need for job coverage for these concerns. Sleep is being managed by Neurologist 5. 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 Need for job coverage for these concerns. Sleep is being managed by Neurologist 6. 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 Need for job coverage for these concerns. Sleep is being managed by Neurologist Jules Haynes DO I spent 35 minutes in the visit, with more than 50% of the total aocc-oh-inme time of the visit in counseling / coordination of care. Return if no improvement. Follow up with Jules Haynes DO. To ER if develops chest pain, shortness of breath. Discussed risks, benefits, alternatives, and potential side effects of medications. Patient/Guardian expressed understanding and agreed with the plan. See patient instructions. Jules Haynes DO [address] [place] [address] documented in this encounterThe [facility]12-30-2024 Telephone encounter Note * Telephone Encounter - Eveline CurielENRIQUE - 02/19/2024 3:48 PM EST Prescription Refill Information The patient has been [...] Unclear as to why, but again taking Prozacat night which can trigger RBD symptoms in [...] ENRIQUE Funk February 19, 2024 3:48 PM [facility]30[facility] Miscellaneous Notes* Telephone Encounter - Eveline Curiel OCCA - 02/19/2024 3:48 PM EST Prescription Refill Information The patient has been identified by name and date of : Yes Caregiver verified no other encounters exist for this prescription request: Yes Caregiver confirmed with patient/requestor that no other refills are due, in the near future, with this provider at this time: Yes The last office visit in the department: [place] ASSESSMENT/PLAN: 1. Obstructive sleep apnea (adult) (pediatric) [...] Unclear as to why, but again taking Prozacat night which can trigger RBD symptoms in [...] 19, 2024 3:48 PM documented in this encounterThe [facility]12-23-2024 Telephone encounter Note * Telephone Encounter - Lilo Chaney LPN - 02/12/2024 3:55 PM EST Prescription Refill Information The patient has been [...] Unclear as to why, but again taking Prozacat night which can trigger RBD symptoms in [...] Chaney LPN February 12, 2024 3:55 PM [facility] Miscellaneous Notes* Telephone Encounter - Lilo Chaney LPN - 02/12/2024 3:55 PM EST Prescription Refill Information The patient has been [...] Unclear as to why, but again taking Prozacat night which can trigger RBD symptoms in [...] 12, 2024 3:55 PM documented in this encounterThe [facility]11-21-2024 Telephone encounter Note * Telephone Encounter - Laura Sellers LPN - 01/11/2024 11:40 AM EST The patient has been identified by name [...] Sellers LPN January 11, 2024 11:41 AM [facility]-21[facility] Miscellaneous Notes* Telephone Encounter - Laura Sellers LPN - 01/11/2024 11:40 AM EST The patient has been identified by name [...] 11, 2024 11:41 AM documented in this encounterThe [facility] Hospital11-18-2024 Instructions* Patient Instructions* Jorge Reddy Jr., MD - 01/08/2024 11:15 AM EST Your most recent body mass index (BMI) that we have on record is 28.4 kg/m2. Obstructive sleep apnea (BOBBY) worsens with an increase in weight; reduction in weight may improve or resolve your BOBBY. If you are not already seeking treatment, there are resources available at the [facility] such asa nutrition consultation or referral to weight management programs at our [facility]. Please let us know if we can assist with a referral. Regarding sleep apnea: Continue to sleep on side. Regarding medications: Discontinue Amitriptyline (Elavil). Continue Klonopin 1.0mg prior to bedtime. Start Melatonin 5mg at bedtime. Move Prozac to the AM or when you wake up. If you are to drink ETOH, try to have glass 4-5 hours prior to bedtime. documented in this encounterThe [facility]vue Hospital11-18-2024 NoteHNO ID: [id number] Author: JORGE REDDY JR, MD Service: ? Author Type: Physician Type: Progress Notes Filed: 01/08/2024 18:26 Note Text: ESTABLISHED PATIENT VISIT CHIEF COMPLAINT: Follow Up HISTORY OF PRESENT ILLNESS: Kacey Bentley is a 63 year old male, BMI 28.4 kg/m2 with a PMH significant for and per last office visit of 12/11/23: Rbd (rem behavioral disorder) (primary encounter diagnosis) aKcey Bentley is a 63 year old male [...] Saul Colmenares CNP in 4 weeks in [place]. At that time will need UDS and [...] disturbance, mood disorder and recent psychosocial stressors. HEMATOLOGIC/LYMPHATIC/IMMUNOLOGIC:Negative for prolonged bleeding, bruising easily or swollen [...] Value 03/29/2023 33.6 RDW- (more content not included)...[facility]11-18-2024 History of Present illness Narrative* Jorge Reddy Jr., MD - 01/08/2024 11:00 AM EST ESTABLISHED PATIENT VISIT CHIEF COMPLAINT: Follow Up [...] (moderate supine and normal off-supine). While currently treatingwith positional therapy, attempting to get in with [...] with dose recently increased. I was considering havingpatient stop, but for now, will have patient [...] Saul Colmenares CNP in 4 weeks in [place]. At that time will need UDS and [...] changes since sleep study. Pt again declines PAPtherapy. Yet to see dentist regarding oral appliance [...] disturbance, mood disorder and recent psychosocial stressors. HEMATOLOGIC/LYMPHATIC/IMMUNOLOGIC:Negative for prolonged bleeding, bruising easily or swollen [...] Unclear as to why, but again taking Prozacat night which can trigger RBD symptoms in [...] Level: 4 - Moderate documented in this encounterThe [facility]10-21-2024 NoteHNO ID: [id number] Author: SUSHANT COLMENARES APRN.MANAGER MEDICARE Service: ? Author Type: Nurse Practitioner Type: Progress Notes Filed: 12/11/2023 14:11 Note Text: [facility] Follow up/ Established patient visit Date of last visit : 06/23/23 The following Impression/Plan was copied and pasted from the patient's last [facility] visit on 06/23/23: ASSESSMENT/PLAN: 1. OBBBY (obstructive sleep apnea) - ICD9: 327.23, ICD10: [...] such actions have resulted in injury. 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 [...] drowsy drivin Multiple valu (more content not included)...[facility]10-21-20[facility] History of Present illness Narrative* Sushant Colmenares APRN.MANAGER MEDICARE - 12/11/2023 1:38 PM EDT Images from the original note were not included. [facility] Follow up/ Established [...] sleep apnea and pt's preference to not sleepin the supine position. Reviewed prior sleep studies [...] that could harm self or others when tired/sleepy,including driving and/or operating heavy machinery. Encouraged weight [...] He will need a UDS and bezon confirmationat 3 month follow up. Note pt does occasionally use minimal cannabis - we have been made aware and explained possible influence of it on meds and conditions. 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 [...] are sorted in reverse-chronological order 12/15/2022 12/11/2023 [place] Sleepiness Scale Score 13 (Excessive daytime sleepiness [...] population = 50. Five points is a clinicallymeaningful difference.) Physical T-Score 47.7 47.7 44.9 47.7 [...] All prescriptions have been APPROPRIATELY filled. No suspiciousactivity was identified. 12/11/2023 by JAYDA Zamudio APRN.MANAGER MEDICARE documented in this encounterThe [facility]10-20-2024 Telephone encounter Note * Telephone Encounter - Jorge Reddy Jr., MD - 12/10/2023 11:23 PM EDT Pt has not complied with treatment plan including need for follow ups. Pt scheduled for follow up tomorrow 12/11/23 with Saul Colmenares CNP at which time can reevaluate if appropriate to refill Klonopin. Jorge Reddy MD [facility]10-20-2024 Miscellaneous Notes* Telephone Encounter - Jorge Reddy Jr., MD - 12/10/2023 11:23 PM EDT Pt has not complied with treatment plan including need for follow ups. Pt scheduled for follow up tomorrow 12/11/23 with Saul Colmenares CNP at which time can reevaluate if appropriate to refill Klonopin. Jorge Reddy MD * Telephone Encounter - Kiarra Alba MA - 12/09/2023 9:10 AM EDT Patients came into office this morning stating that pt. Is completely out of medication. Asking for refill. Does not see Dr. Reddy until 01/15/24. Kiarra Alba MA documented in this encounterThe [facility] Hospital10-19-2024 Telephone encounter Note * Telephone Encounter - Kiarra Alba MA - 12/09/2023 9:10 AM EDT Patients came into office this morning stating that pt. Is completely out of medication. Asking for refill. Does not see Dr. Reddy until 01/15/24. Kiarra Alba MA [facility]10-07-2024 Telephone encounter Note* Telephone Encounter - Von Conner - 11/27/2023 3:15 PM EDT LVM for pt to call and schedule also sent mcm [facility]10-07-2024 Miscellaneous Notes* Telephone Encounter - Von Conner - 11/27/2023 3:15 PM EDT LVM for pt to call and schedule also sent mcm documented in this encounterThe [facility] Hospital09-11-2024 Telephone encounter Note * Telephone Encounter - Isabell Maya - 11/01/2023 1:42 PM EDT Called Spouse-no answer. Left voicemail requesting she call the [facility] to schedule in-office visit with any sleep IVIS. Isabell Maya [facility]09-11-2024 Miscellaneous Notes* Telephone Encounter - Isabell Maya - 11/01/2023 1:42 PM EDT Called Spouse-no answer. Left voicemail requesting she call the [facility] to schedule in-office visit with any sleep IVIS. Isabell Maya * Telephone Encounter - Britney Greco RN - 11/01/2023 10:36 AM EDT Received call from patient's . She reports that "everything has blown up at his work" He is working 12 hour shifts, 7 days a week.He currently works [employer]-5[employer]. 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 She reports he may stay on nights though because they just fired someone and he is covering those shifts. Virtual appointments have been missed. During the time he ran out of [employer], he had episodes of falling out of bed and extreme dreams. He has been back on the Klonopin as of 10-25-23. He is jumping out of bed, not knowing where he is. Going detention around the bedroom and is falling near the window which wakes up and startles her. When he wasn't on the Klonopin, she has heard him downstairs on the floor. He wakes up and doesn't know what he is doing but he does "snap out of it" and remember the episodes. He just can't recall thedreams he is "acting out." She reports he was a big drinker, and has cut down to just a drink a night of hard liquor ( cancino it down though). Has a follow up appointment scheduled for 01-15-[address] Reddy. Spoke to Dr. Reddy who recommended for in person appointment with soonest available IVIS. * Telephone Encounter - Britney Greco RN - 11/01/2023 9:27 AM EDT Received voicemail 10-31-23 at 12:57 PM. Good afternoon my name is Jonathan Bentley. Calling for my Kacey Bentley. Birthday [birth year]. If you could please call me back at [phone]. I would appreciate it. He has started taking the medicine but he is still having some turbulent dreams and I'd like to talk to you about it. Thank you very muchand have a good day." Call to patient's . No answer. Left voicemail to return call. Last office visit with Dr. Reddy (virtual) 08-30-23 Assessment and Plan: ASSESSMENT/PLAN: 1. BOBBY (obstructive sleep apnea) - ICD9: 327.23, ICD10: G47.33 (primary diagnosis) Patient with known positional BOBBY (moderate supine and normal off-supine). While currently treatingwith positional therapy, attempting to get in with [...] with dose recently increased. I was considering havingpatient stop, but for now, will have patient [...] Saul Colmenares CNP in 4 weeks in [place]. At that time will need UDS and urine benzo confirm (annual lab). Would also try to stop Amitriptyline at that time if no contraindications." documented in this encounterThe [facility]09-11-2024 Telephone encounter Note * Telephone Encounter - Britney Greco RN - 11/01/2023 10:36 AM EDT Received call from patient's . She reports that "everything has blown up at his work" He is working 12 hour shifts, 7 days a week.He currently works [employer]A-[employer]. 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 She reports he may stay on nights though because they just fired someone and he is covering those shifts. Virtual appointments have been missed. During the time he ran out of [employer], he had episodes of falling out of bed and extreme dreams. He has been back on the [employer] as of 10-25-23. He is jumping out of bed, not knowing where he is. Going detention around the bedroom and is falling near the window which wakes up and startles her. When he wasn't on the Klonopin, she has heard him downstairs on the floor. He wakes up and doesn't know what he is doing but he does "snap out of it" and remember the episodes. He just can't recall thedreams he is "acting out." She reports he was a big drinker, and has cut down to just a drink a night of hard liquor ( cancino it down though). Has a follow up appointment scheduled for 01-15-[address] Reddy. Spoke to Dr. Reddy who recommended for in person appointment with soonest available IVIS. [facility] Telephone encounter Note* Telephone Encounter - Britney Greco RN - 11/01/2023 9:27 AM EDT Received voicemail 10-31-23 at 12:57 PM. Good afternoon my name is Jonathan Bentley. Calling for my Kacey Bentley. Birthday [birth year]. If you could please call me back at [phone]. I would appreciate it. He has started taking the medicine but he is still having some turbulent dreams and I'd like to talk to you about it. Thank you very muchand have a good day." Call to patient's . No answer. Left voicemail to return call. Last office visit with Dr. Reddy (virtual) 08-30-23 Assessment and Plan: ASSESSMENT/PLAN: 1. BOBBY (obstructive sleep apnea) - ICD9: 327.23, ICD10: G47.33 (primary diagnosis) Patient with known positional BOBBY (moderate supine and normal off-supine). While currently treatingwith positional therapy, attempting to get in with [...] with dose recently increased. I was considering havingpatient stop, but for now, will have patient [...] Saul Colmenares CNP in 4 weeks in [place]. At that time will need UDS and urine benzo confirm (annual lab). Would also try to stop Amitriptyline at that time if no contraindications." [facility]09-04-2024 Telephone encounter Note* Telephone Encounter - Jorge Reddy Jr., MD - 10/25/2023 12:55 PM EDT PDMP website checked and validated. All prescriptions have been APPROPRIATELY filled. No suspiciousactivity was identified. 10/25/2023 by Jorge Reddy MD [facility]09-04-2024 Miscellaneous Notes* Telephone Encounter - Jorge Reddy Jr., MD - 10/25/2023 12:55 PM EDT PDMP website checked and validated. All prescriptions have been APPROPRIATELY filled. No suspiciousactivity was identified. 10/25/2023 by Jorge Reddy MD * Telephone Encounter - Haylee Rubin - 10/25/2023 10:29 AM EDT Prescription Refill Information The patient has been [...] 25, 2023 10:29 AM documented in this encounterThe [facility] Telephone encounter Note * Telephone Encounter - Haylee Rubin - 10/25/2023 10:29 AM EDT Prescription Refill Information The patient has been [...] Haylee Rubin October 25, 2023 10:29 AM [facility]07-30-2024 Instructions* Patient Instructions* Danisha Delarosa, SABINE.MANAGER MEDICARE - 09/19/2023 1:20 PM EDT Dear Kacey, It has come to my attention you missed your appointment on September 19, 2023 without calling to cancel.Our first concern is your health. If your [...] to alert you to our cancellation policy. Becausethere are many patients waiting for appointments, we [...] Department of Psychiatry and Psychology at the [facility]. A rolling year begins with the [...] I apologize in advance. Please call the [facility] Office at [phone] if you have questions about this protocol or question the data on file. If there has been an error, your file will be corrected accordingly. Sincerely, Danisha Delarosa APRN, CNP documented in this encounterThe [facility]07-[facility] History of Present illness Narrative* Danisha Delarosa APRN.CNP - 09/19/2023 1:16 PM EDT Patient did not come in for his scheduled follow up visit with the provider today. documented in this encounterThe [facility]07-[facility] Telephone encounter Note * Telephone Encounter - Eveline Curiel OCCA - 09/08/2023 2:22 PM EDT Multiple attempts to reach patient without success. Letter mailed to patients home address notifying of need to contact office for appointment. ENRIQUE Funk [facility]07-19-2024 Miscellaneous Notes* Telephone Encounter - Eveline Curiel OCCA - 09/08/2023 2:22 PM EDT Multiple attempts to reach patient without success. Letter mailed to patients home address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 T-Score 47.7 [...] Nasal valve incompetence absent. Posterior airspace: Greer tongueposition 4, retrognathia absent. Overbite absent. High arched [...] this other than safety measures. Sushant Colmenares APRN.MANAGER MEDICARE I spent a total of 45 minutes on the date of the service which included preparing to see the patient, [id number] patient care, completing clinical documentation, obtaining and/or reviewing separately obtained history, performing a medically appropriate examination, counseling and educating the pat ient/family/caregiver, and ordering medications, tests, or procedures. documented in this encounterThe [facility] Hospital10-26-2023 Miscellaneous Notes* Telephone Encounter - Zulay Lord LPCC - 12/15/2022 3:34 PM EDT Behavioral Health Social Work Progress Note Patient identified for [facility] from: PCP Reason for referral: Resources Behavioral Health Resources: Psychiatry med management [facility] encounter type: Telephone Encounter Attempts to Outreach: 1 attempt Referral made: Psychiatry - Internal Psychiatry-Internal referral type: Medication Management Final Disposition: Care established with Patient Discharged?: No Patient reported that caregiver was able to meet their needs today?: N/A therapist spoke with patient's , scheduled [facility] assessment for MondayDecember 20 at 1:00pm GEORGINA Elena-Tho December 15, 2022 documented in this encounterThe [facility]10-12-2023 Miscellaneous Notes* Telephone Encounter - Sherri Nixon - 12/01/2022 9:33 AM EDT Pt spouse informed, verbalized understanding. Reports pt has ongoing issues- scheduled with on 12/09. Please assist with scheduling appt with sleep surgery. Sherri Nixon MA * Telephone Encounter - Virginia Lyon APRN.CNP - 12/01/2022 9:05 AM EDT Please let Jose Ramon know his sleep study does again show sleep apnea. I know he was interested in the implanted device as he could not tolerate a CPAP. I'm placing the order for consult for this, please assist him to schedule. Virginia Lyon APRN.MANAGER MEDICARE documented in this encounterThe [facility] Hospital10-05-2023 Miscellaneous Notes* Telephone Encounter - Sherri Nixon - 11/24/2022 2:16 PM EDT Requested Prescriptions Pending Prescriptions Disp Refills rosuvastatin (CRESTOR) 10 mg tablet [Pharmacy Med Name: ROSUVASTATIN CALCIUM 10MG TABS] 90 tablet 3 Sig: take one tablet by mouth every day at bedtime KAL 10/06/2022 NOV not scheduled at this time Sherri Nixon documented in this encounterThe [facility] Hospital09-12-2023 History of Present illness Narrative* Nando Sanchez MD - 11/01/2022 9:18 AM EDT IMPRESSION 62-year-old male with nasal bone fracture with nasal deformity, septal deviation, chronic rhinitis,and impaired auditory discrimination. RECOMMENDATION/PLAN For his nasal [...] for evaluation nasal bone fracture, nasal drainage, andhearing loss. Patient had a fall towards the [...] patent. Nando Sanchez MD documented in this encounterThe [facility] Hospital08-17-2023 Miscellaneous Notes* Telephone Encounter - Virginia Lyon APRN.CNP - 10/06/2022 12:10 PM EDT Please call patient and assist him to schedule with surgical sleep specialist for evaluation for Inspire device. Virginia Lyon APRN.CNP documented in this encounterThe [facility] Hospital08-17-2023 Instructions* Patient Instructions* Virginia Lyon APRN.CNP - 10/06/2022 11:57 AM EDT Schedule your sleep study. Start the Minipress-fine to take with amitriptyline. documented in this encounterThe [facility] Hospital08-17-2023 History of Present illness Narrative* Virginia Lyon APRN.CNP - 10/06/2022 11:37 AM EDT Chief Complaint Patient presents with: Sleep Problem: [...] psychiatrist in the past that he did notbenefit from. Has some nightmares where people are chasing him but can't see the people. Many are r/t his time in the [employer]. Sleep-can't sleep when supposed to be sleeping can't be awake when supposed to be awake. Chronic aswell. Likely r/t nightmares and is constantly moving, [...] and extension, good range of motion, no muscletenderness, motor and sensory appear to be normal [...] - CONSULT TO SLEEP SURGERY-ADULT Virginia Lyon APRN.MANAGER MEDICARE documented in this encounterThe [facility] Hospital07-29-2023 Discharge summary Author Brett Marcus [facility] September 17, 2022 3:48am Note Date/Time September 17, 2022 2:01 am [facility] Medical Records Department [address] [place] [id number] Emergency Department Summary 09/17/22 MR#: [id number] Acct: [id number] Name: KACEY BENTLEY Rep #:[id number] : 1960 62 From: Brett Marcus MD [...] his upper back more to the right. [facility] Medical History BPH (benign prostatic hyperplasia) CPAP [...] % (Auto) 54.5 Lymph % (Auto) 33.7 [place] % (Auto) 8.0 Eos % (Auto) 3.0 [...] your Primary Care Provider. Call [facility] ([phone]) or report to the closest Emergency Room. Call 911 if necessary. 09/17/228 <Electronically signed by Brett Marcus MD> Cosigner Signature (if applicable): CC: Dr. Jules Haynes DO ~ Signed [facility] Work Phone: 1(325) 536-984207-19-2023 Instructions* Patient Instructions* Jessica French APRN.CNP - 09/07/2022 1:49 PM EDT Get labs completed today Increase water intake 8-10 glasses per day Follow up pending test results or sooner as needed. documented in this encounterThe [facility] Hospital07-19-2023 History of Present illness Narrative* Jessica French APRN.MANAGER MEDICARE - 09/07/2022 1:20 PM EDT This is a 62 year old male who presents today with: Patient presents with: Follow Up: ER follow up HISTORY OF PRESENT ILLNESS: Kacey Bentley is a 62 year old male. Patient presents with: Follow Up: ER follow up HOSPITAL/ER FOLLOW UP: Reason for visit: Abdominal pain Which facility: [facility] Er Date of visit: 09/05/2022 [...] discussed and patient voices understanding. Jessica French APRN.TIMUR This note was partially generated using [employer] voice recognition system. Note was reviewed for accuracy. There may be minor misspellings or grammar miscues with [employer] voice recognition. documented in this encounterThe [facility] Hospital04-28-2023 Instructions* Patient Instructions* Adam Galvez MD - 06/17/2022 4:43 PM EDT I would recommend you get scheduled for an EGD with Dr. Han or Dr. Doherty with anesthesia to ensure that you are fully out for the procedure. You can call Ms. Chaney at [phone] to schedule - we need t make srue this is done with anesthesia 2. Start omeprazole 20mg daily - take 30 min before breakfast 3. Increase amitriptyline to 20mg at night - we can increase the dose every 2 weeks - this can helpwith your bowel movement 4. Return to clinic in 4 months - you can call [phone] to schedule documented in this encounterThe [facility] Hospital04-28-2023 History of Present illness Narrative* Adam Galvez MD - 06/17/2022 4:30 PM EDT VIRTUAL VISIT FOLLOW UP I have communicated my name and active licensure. The patient's identity and physical location wereverified at the time of this visit. Either the patient or their legal call center support representative has been informed of the risks and [...] months Adam Galvez MD documented in this encounterThe [facility] Hospital12-12-2022 Miscellaneous Notes* Telephone Encounter - Rand Villegas Ma - 01/31/2022 10:55 AM EST Last office visit: 01/05/22 F/u scheduled: none Rand Villegas Ma documented in this encounterThe [facility] Hospital11-16-2022 History of Present illness Narrative* Virginia Lyon APRN.TIMUR - 01/05/2022 9:02 AM EST VIRTUAL VISIT PROGRESS NOTE This is a virtual visit using [employer] video visit. It required patient-provider interaction for themedical decision making as documented below. Kacey Bentley is a 61 year old male seen for 6 week follow up. Per appointment with Rosalina Perez CNP on 11/26/2021: CHRISTOPHER-- Was on Prozac 40 mg daily. Guin he didn't need it anymore after getting [...] insomnia r/t nightmares. Will contact patient via [employer] to discuss any possible treatment. Virginia Lyon APRN.CNP documented in this encounterThe [facility] Hospital11-08-2022 Nurse Note* Kash Gold LPN - [...] RN In Department: GASTROENTEROLOGY documented in this encounterThe [facility] Hospital11-08-2022 History and physical note * Adam Galvez MD - 12/28/2021 10:00 AM EST HISTORY AND PHYSICAL Kacey Mazariegos Mc, 61 year old male Current history and [...] None Adam Galvez MD documented in this encounterThe [facility]11-01-2022 Miscellaneous Notes* Telephone Encounter - Damaris Norton RN - 12/21/2021 4:16 PM EDT Attempted to reach the patient at the contact number that they provided [phone] (home) [phone] (work) . Unable to speak with patient so without identifying the patient the following information was left on their voice mail: Date of procedure, location and report time Instructions to contact their primary care provider regarding their medications and which medications to stop in preparation for their procedure Number to call with questions or concerns [phone] Number to call to cancel their procedure [phone] Damaris Norton RN documented in this encounterThe [facility] Hospital10-07-2022 History of Present illness Narrative* Rosalina Perez APRN.MANAGER MEDICARE - 11/26/2021 12:27 PM EDT Chief Complaint [...] Concerns today.. UC follow-up --- Seen in [facility] on 11/24/21 due to rash on chest. [...] clotrimazole ointment due to not available at [facility]. Not available OTC orprescription. Pt asking to resend to another pharmacy. Rash/ring worm remains the same. No worse but no better. Still no itchiness. No cats but does have dog that could have gave it to him. CHRISTOPHER-- Was on Prozac 40 mg daily. Guin he didn't need it anymore after getting [...] agreeable to treatment plan. Rosalina Perez APRN.CNP [address] [place] [address] documented in this encounterThe [facility] Hospital10-05-2022 Instructions* Patient Instructions* Luz Elena Edouard [...] 4-6 weeks of treatment. documented in this encounterThe [facility] Hospital10-05-2022 History of Present illness Narrative* Luz Elena Edouard APRN.CNP - 11/24/2021 4:42 PM EDT Images from the original note were not included. Subjective The history is provided by the patient. No speech language therapist was used. DINORAH Bentley is a 61 year old male [...] Colon polyps 03/26/2010 Dr. Salty Rodrigues, by awais scope Depression Hyperlipemia BOBBY (obstructive sleep apnea) CPAP Personal history of colonic polyps 03/10/2016 tubular adenoma I have confirmed and edited as necessary, the [facility] Review of Systems Constitutional: Negative for chills [...] warranting prompt ER evaluation. Luz Elena Edouard APRN.TIMUR documented in this encounterThe [facility] Hospital09-27-2022 History of Present illness Narrative* Virginia Horner APRN.CNP - 11/16/2021 2:12 PM EDT 11/16/2021 Patient presents with: Thigh Pain: Right upper stabbing pain that comes and goes; not aware of injury SUBJECTIVE: This is a 61 year old that is here today for Above Complaints. ONSET: three days LOCATION: right upper thigh DURATION: last seconds CHARACTERISTICS: "like nerves on fire" AGGRAVATING FEATURES: nothing ALLEVIATING FEATURES: does not use anything RADIATION: no Denies past injury or surgery, skin rash, back pain, saddle anaesthesia, extremity numbness/tingling/weakness, urinary/bowel incontinence or inability PAST MEDICAL HISTORY Diagnosis Date Arthritis Colon polyps 03/26/2010 Dr. Salty Rodrigues, by awais scope Depression Hyperlipemia BOBBY (obstructive sleep apnea) [...] recheck. - Goal of BP <130/80 Virginia Horner APRN.TIMUR Prescription instructions reviewed with patient as applicable. [...] which included preparing to see the patient, [id number] patient care, completing clinical documentation, obtaining and/or reviewing separately obtained history, performing a medically appropriate examination, and counseling and educating the patient/family/caregiver. documented in this encounterThe [facility] Hospital09-19-2022 Instructions* Patient Instructions* Adam Galvez MD [...] before bed. Can you send me a [employer] message in 2-4 weeks? We can increase the dose every 2 weeks if needed 3. Return to clinic in 4-6 months documented in this encounterThe [facility] Hospital09-19-2022 History of Present illness Narrative* Adam Galvez MD - 11/08/2021 3:58 PM EDT Images from the original note were not included. Kacey Mazariegos Mc, 61 year old male here for follow-up [...] EXAMINATION BP 137/77 Pulse 66 Ht 5' 11.75" (1.82m) Wt 204 lb 12.8 oz (92.9kg) [...] negative colonoscopy with biopsieslast year. He fits Delanson IV criteria for IBS RECOMMENDATION: --EGD with esophageal dilation --He will start amitriptyline 10mg QHS for IBS-D (Ramy et al, APT 2008) --RTC in 4-6 months Adam Galvez MD November 08, 2021 4:01 PM documented in this encounterThe [facility] Hospital09-08-2022 Miscellaneous Notes* Telephone Encounter - Jennifer [...] concerns Jules Haynes DO documented in this encounterThe [facility] Hospital09-07-2022 Miscellaneous Notes* Telephone Encounter - Adrienne [...] understanding. Patient would like script sent to [facility] pharmacy not [facility] pended please sign Adrienne [...] Provider: ROSALINA PEREZ APRN.CNP documented in this encounterThe [facility] Hospital09-01-2022 Miscellaneous Notes* Telephone Encounter - PALMER [...] Please see pt message documented in this encounterThe [facility] Hospital09-01-2022 Miscellaneous Notes* Telephone Encounter - Hanh [...] you, Rosalina Perez APRN.CNP documented in this encounterThe [facility] Hospital08-31-2022 Instructions* Patient Instructions* Rosalina Perez APRN.CNP - 10/20/2021 3:39 PM EDT Schedule thyroid US Get blood work done. Follow-up with GI Dr. Galvez about surgery. documented in this encounterThe [facility] Hospital08-31-2022 History of Present illness Narrative* Rosalina Perez APRN.CNP - 10/20/2021 3:00 PM EDT Chief Complaint Patient presents with: ER F/U: Was seen at [facility] for cellulitis . States stepped on a nail. HPI Kacey Bentley is a 61 year old male who presents here today for Above Complaints. Kacey is an established patient of Dr. Dallas DO. Kacey is a new patient to me today. Concerns today.. ER Follow-up -- [facility] ED visit on 09/25/21 d/t [...] report. Followed up with Dr. Galvez at [facility] GI that noted significant ring at [...] restart medication if needed. Was seen by supervisor outside [facility] that said he does nothave [...] Salty Rodrigues, by c scope Depression Hyperlipemia BOBYB (obstructive sleep apnea) CPAP Personal history of [...] Patient agreeable to treatment plan. Rosalina Perez APRN.TIMUR [address] [place] [address] documented in this encounterThe [facility] Hospital08-06-2022 Miscellaneous Notes* Telephone Encounter - Za Oliveira RN - 09/25/2021 7:42 PM EDT Reason for call: Puncture of left foot with chato nail Outcome: Patient advised to go to the ED within the next 4 hours for evaluation. Patient verbalizesunderstanding and agreeable, will go to [facility]. Reason for Disposition [1] Puncture wound of foot AND [2] puncture went through shoe (e.g., tennis shoe) Answer Assessment - Initial Assessment Questions 1. LOCATION: Left foot 2. OBJECT: Chato Nail, went right through sole of boot into foot 3. DEPTH: Patient unsure, reports "I can see a line in my foot like maybe 1/4" deep" 4. ONSET: 09/24/21 1 PM 5. PAIN: Reports no constant pain, however patient has pain with walking, "which is pretty bad, butI think it's expected after stepping on a nail." Reports the foot is hot, swollen, "I can feel the fluid moving around under my foot if I touch it",denies generalized redness or streaking from puncture site. 6. TETANUS: Unknown, "they told me last year it was up to date" 7. : N/A Protocols used: Puncture [id number] documented in this encounterThe [facility] Hospital06-07-2022 History of Present illness Narrative* Mariana Weller APRN.MANAGER MEDICARE - 07/27/2021 8:29 AM EDT Images from the original note were not included. Subjective Patient came in with complaints of bleeding wound. patient cut himself with punning morgan yesterday and a steri was placed and patient is bleeding through the bandage. patient does have factor five. The history is provided by the patient. No speech language therapist was used. Review of Systems Constitutional: Negative. [...] bleeding. Mariana Weller APRN.TIMUR documented in this encounterThe [facility] Hospital06-06-2022 History of Present illness Narrative* Katherin English APRN.CNP - 07/26/2021 4:30 PM EDT Images from the original note were not included. Tere Bentley is a 61 year old male who presents with a laceration to the left forearm. He reports that he "stabbed" his left forearm with morgan while trimming trees approximately 15 minutes ago. Denies significant bleeding and reports he has been applying pressure to site. Last tetanus vaccine in 2019. The history is provided by the patient. No speech language therapist was used. Review of Systems Constitutional: Negative [...] increased pain NOBLE Hansen student TEACHING PROVIDER (Physician/PA/DENTAL THERAPIST) NOTE OF PERSONAL INVOLVEMENT IN CARE: I have personally seen and examined the patient and performed the medical decision-making components. I have reviewed the Advanced Practice Registered Nurse (DENTAL THERAPIST) Student's documentation and verified the findings in the note as written. Any additions or changes are noted in bold/italics. Signature: Katherin English Date: 07/26/2021 Time: 7:24 PM documented in this encounterThe [facility] Hospital06-06-2022 Instructions* Patient Instructions* Chantell Sidhu - 07/26/2021 4:26 PM EDT ASSESSMENT/PLAN: 1. Laceration of left forearm, initial encounter - ICD9: 881.00, ICD10: S51.812A -Wound cleansed and steri-strip applied. -Leave steri-strip in place until it falls off -Return with signs of infection: redness, warmth, increased pain NOBLE Hansen student documented in this encounterThe [facility] Hospital01-08-2021 History of Present illness Narrative* Judy Felton)Bart - 02/28/2020 4:20 PM EST Radiology Service [...] 28, 2020 4:25 PM [facility]* Diagnosis Laceration of left forearm, initial encounter- Primary documented in this encounter [facility] note* Diagnosis Visit for wound check- Primary Encounter for other specified aftercare documented in this encounter [facility] note* Diagnosis Onset Date Resolution Status Cellulitis and abscess of left leg acute Puncture wound of foot, left, complicated acute [facility] Work Phone: Evaluation note* Diagnosis Fatigue, unspecified type- Primary Cellulitis of left lower extremity Cellulitis and abscess of leg, except foot Esophageal dysphagia Dysphagia, pharyngoesophageal phase Subclinical hypothyroidism Other specified acquired hypothyroidism Hypercholesteremia Pure hypercholesterolemia Urinary frequency Irritable bowel syndrome with diarrhea Irritable bowel syndrome documented in this encounter [facility] note* Diagnosis Hypercholesteremia- Primary Pure hypercholesterolemia documented in this encounter [facility] note* Diagnosis Hypercholesteremia Pure hypercholesterolemia documented in this encounter [facility] note* Diagnosis Subclinical hypothyroidism Other specified acquired hypothyroidism documented in this encounter [facility] note* Diagnosis Esophageal dysphagia- Primary Dysphagia, pharyngoesophageal phase Irritable bowel syndrome with diarrhea Irritable bowel syndrome documented in this encounter [facility] note* Diagnosis Stabbing pain- Primary Pain in limb Elevated BP without diagnosis of hypertension documented in this encounter [facility] note* Diagnosis Tinea corporis- Primary Dermatophytosis of the body documented [facility]* Diagnosis Tinea corporis- Primary Dermatophytosis of the body Urinary frequency Anxiety with depression Situational anxiety Other anxiety states documented in this encounter [facility] note* Diagnosis Esophageal dysphagia Dysphagia, pharyngoesophageal phase [facility] Diagnosis Anxiety with depression- Primary Nightmares Other dysfunctions of sleep stages or arousal from sleep documented in this encounter [facility] note* Diagnosis Anxiety with depression documented in this encounter [facility] note* Diagnosis Lower esophageal ring (Schatzki)- Primary documented in this encounter [facility] note* Diagnosis Hospital discharge follow-up- Primary Other follow-up examination Abdominal cramping Abdominal pain, unspecified site Night sweats Generalized hyperhidrosis GERD without esophagitis Esophageal reflux Anxiety with depression documented in this encounter [facility] noteNo assessment information availableWProMedica [facility] Work Phone: Evaluation note* Diagnosis Nightmares- Primary Other dysfunctions of sleep stages or arousal from sleep Fatigue, unspecified type Chronic insomnia Insomnia, unspecified Restless sleeper Sleep disturbance, unspecified BOBBY (obstructive sleep apnea) Obstructive sleep apnea (adult) (pediatric) documented in this encounter [facility] note* Diagnosis Impaired auditory discrimination, left- Primary Closed fracture of nasal bone, initial encounter Chronic rhinitis Deviated nasal septum [facility] Hypercholesteremia Pure hypercholesterolemia [facility]* Diagnosis Nightmares- Primary Other dysfunctions of sleep stages or arousal from sleep Fatigue, unspecified type Chronic insomnia Insomnia, unspecified Restless sleeper Sleep disturbance, unspecified BOBBY (obstructive sleep apnea) Obstructive sleep apnea (adult) (pediatric) documented [facility]* Diagnosis BOBBY (obstructive sleep apnea)- Primary Obstructive sleep apnea (adult) (pediatric) Excessive daytime sleepiness Dream enactment behavior [facility]* Diagnosis BPPV (benign paroxysmal positional vertigo), unspecified laterality- Primary Dizzy Dizziness and giddiness Nausea Nausea alone [facility]* Diagnosis CHRISTOPHER (generalized anxiety disorder)- Primary Generalized anxiety disorder Major depressive disorder, recurrent episode, moderate (HCC) Major depressive disorder, recurrent episode, moderate Night terrors Sleep arousal disorder Marijuana use Cannabis abuse, unspecified Alcohol use [facility]* Diagnosis APPOINTMENT CANCELLED- Primary [facility]* Diagnosis Abdominal aortic embolism (HCC)- Primary Other arterial embolism and thrombosis of abdominal aorta documented in this encounter [facility] note* Diagnosis PTSD (post-traumatic stress disorder)- Primary Posttraumatic stress disorder CHRISTOPHER (generalized anxiety disorder) Generalized anxiety disorder Marijuana use Cannabis abuse, unspecified Alcohol use Night terrors Sleep arousal disorder documented in this encounter [facility] note* Diagnosis Fatigue, unspecified type- Primary [facility]* Diagnosis Fatigue, unspecified type- Primary BOBBY (obstructive sleep apnea) Obstructive sleep apnea (adult) (pediatric) Vivid dream Other dysfunctions of sleep stages or arousal from sleep Nightmares Other dysfunctions of sleep stages or arousal from sleep Restless sleeper Sleep disturbance, unspecified Night sweats Generalized hyperhidrosis Alcohol abuse Alcohol abuse, unspecified [facility]* Diagnosis Bilateral carotid artery stenosis- Primary Occlusion and stenosis of carotid artery without mention of cerebral infarction Pure hypercholesterolemia 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) Sleep apnea, unspecified type Aneurysm of ascending aorta without rupture (HCC) documented [facility]* Diagnosis Anxiety with depression [facility]* Diagnosis BOBBY (obstructive sleep apnea)- Primary Obstructive sleep apnea (adult) (pediatric) 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 PLMD (periodic limb movement disorder) Periodic limb movement disorder [facility]* Diagnosis PTSD (post-traumatic stress disorder)- Primary Posttraumatic stress disorder CHRISTOPHER (generalized anxiety disorder) Generalized anxiety disorder Marijuana use Cannabis abuse, unspecified Alcohol use [facility] Well adult exam- Primary [...] arousal from sleep [facility]* Diagnosis Cortical age-related cataract, bilateral- Primary Myopia, bilateral Myopia Presbyopia documented [facility]* Diagnosis BOBBY (obstructive sleep apnea)- Primary Obstructive sleep apnea (adult) (pediatric) PLMD (periodic limb movement disorder) Periodic limb movement disorder 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 Anxiety with depression [facility] Diagnosis NO SHOW- Primary [facility] Diagnosis PLMD (periodic limb movement disorder) Periodic limb movement disorder 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 [facility] Diagnosis Chest tightness Other chest pain [facility] Diagnosis PLMD (periodic limb movement disorder) Periodic limb movement disorder 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 [facility] Diagnosis 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 [facility] Diagnosis Obstructive sleep apnea (adult) (pediatric)- Primary High risk medication use Encounter for long-term (current) use of other medications 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 PLMD (periodic limb movement disorder) Periodic limb movement 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, shift work type [facility] Diagnosis Urinary frequency [facility]* Diagnosis Urinary frequency [facility] Diagnosis 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, shift work type [facility]* Diagnosis 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 [facility]* Diagnosis Fatigue, unspecified type- Primary Need for influenza vaccination Need for prophylactic vaccination and inoculation against influenza BOBBY (obstructive sleep apnea) Obstructive sleep apnea (adult) (pediatric) Anxiety with depression 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 PLMD (periodic limb movement disorder) Periodic limb movement disorder [facility]* Diagnosis 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, shift work type [facility]* Diagnosis Urinary frequency [facility]* Diagnosis 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 [facility]* Diagnosis Dog bite of left hand, initial encounter- Primary documented [facility]* Diagnosis 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 [facility]* Diagnosis 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 [facility]* Diagnosis 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 Obstructive sleep apnea Obstructive sleep apnea (adult) (pediatric) documented [facility]* Diagnosis 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, shift work type [facility]* Diagnosis Urinary frequency [facility]* Diagnosis Gross hematuria- Primary Screening for genitourinary condition Screening for other and unspecified genitourinary condition Personal history of kidney stones Personal history of urinary calculi Benign prostatic hyperplasia with weak urinary stream Gross hematuria [facility]* Diagnosis Gross hematuria- Primary Gross hematuria- Primary documented [facility]* Diagnosis Gross hematuria Gross hematuria- Primary documented [facility]* Diagnosis Gross hematuria- Primary documented [facility]* Diagnosis Hematuria, unspecified type [R31.9]- Primary Gross hematuria Benign prostatic hyperplasia with weak urinary stream Incomplete bladder emptying Gross hematuria [facility] this [facility] Dis[facility] instructionsWooProMed[facility] Work Phone: Hospital Discharge instructionsAdditional Instructions You need to call your urologist to make an appointment for evaluation of blood in your urine. Take Tylenol Motrin as needed for pain. If you have new or worsening symptoms please come back to the ER.[facility] Work Phone: Reason for referral (narrative)* Diagnostic Procedure Only (Routine) - Closed Specialty Diagnoses / Procedures Referred By Mohan t Referred To Contact US IMAGING Diagnoses Subclinical hypothyroidism Procedures US THYROID/PARATHYROID ULTRASOUND OF THYROID Jules Haynes DO [address] [place] [address] Us Imaging Referral ID Status Reason Start Date Expiration Date V isits Requested Visits Authorized [id number] Closed Auto-Generate d Referral 11/25/2020 12/25/2021 1 1 [facility] for referral (narrative)* Outpatient Procedure (Routine) - Pending Review Specialty Diagnoses / Procedures Referred By Mohan barboza Referred To Contact [facility] Diagnoses Esophageal dysphagia Procedures EGD - THERAPEUTIC, EUS, OR TUBE INTERVENTIONS EGD DILATION GASTRIC/DUODENAL STRICTURE Adam Galvez MD [address] [place] [address] [facility] [address] [place] [address] Referral ID Status Reason Start Date Expiration Date Visits Requested Visits Authorized [id number] Pending Review Auto-Generat ed Referral 11/08/2021 11/08/2022 1 1 [facility] for referral (narrative)* Outpatient Procedure (Routine) - Denied Specialty Diagnoses / Procedures Referred By Mohan barboza Referred To Contact [facility] Diagnoses Esophageal dysphagia Procedures EGD - THERAPEUTIC, EUS, OR TUBE INTERVENTIONS EGD DILATION GASTRIC/DUODENAL STRICTURE Adam Galvez MD [address] [place] [address] [address] Referral ID Status Reason Start Date Expiration Date V isits Requested Visits Authorized [id number] Denied Auto-Generate d Referral 12/28/2021 11/08/2022 1 0 [facility] for referral (narrative)* Outpatient Procedure (Routine) - Pending Review Specialty Diagnoses / Procedures Referred By Mohan t Referred To Contact [facility] [place] Diagnoses Lower esophageal ring (Schatzki) Procedures EGD - THERAPEUTIC, EUS, OR TUBE INTERVENTIONS EGD DILATION GASTRIC/DUODENAL STRICTURE Adam Galvez MD [address] [place], [place] [id number] [address] [address] Referral ID Status Reason Start Date Expiration Date Visits Requested Visits Authorized [id number] Pending Review Auto-Generat ed Referral 06/17/2022 06/18/2023 1 1 [facility] for referral (narrative)* Diagnostic Procedure Only (Routine) - Incomplete Specialty Diagnoses / Procedures Referred By Mohan barboza Referred To Contact [facility] IMAGING Diagnoses BPPV (benign paroxysmal positional vertigo), unspecified laterality Dizzy Nausea Procedures US CAROTID BILATERAL Virginia Lyon APRN.MANAGER MEDICARE [address] [place] [address] Us Imaging [id number] Referral ID Status Reason Start Date Expiration Date Visits Requested Visits Authorized [id number] Incomplete Auto-Generat ed Referral 12/21/2022 01/20/2024 1 1 * Outpatient Procedure (Routine) - Authorized Specialty Diagnoses / Procedures Referred By Mohan barboza Referred [facility] Diagnoses BPPV (benign paroxysmal positional vertigo), unspecified laterality Dizzy Nausea Procedures US CAROTID ARTERIES [facility] DUPLEX SCAN EXTRACRANIAL ART COMPL BI STUDY Virginia Lyon APRN.CNP [address] [place] [address] [facility] [address] [address] Referral ID Status Reason Start Date Expiration Date Visits Requested Visits Authorized [id number] Authorized Auto-Generat ed Referral 12/21/2022 12/21/2023 1 1 * Outpatient Procedure (Routine) - Authorized Specialty Diagnoses / Procedures Referred By Contac t Referred To Contact [facility] [place] Diagnoses BPPV (benign paroxysmal positional vertigo), unspecified laterality Dizzy Nausea Procedures ECG COMPLETE ECG ROUTINE ECG W/LEAST 12 LDS W/I&R Virginia Lyon APRN.CNP [address] [place] [address] [address] Referral ID Status Reason Start Date Expiration Date Visits Requested Visits Authorized [id number] Authorized Auto-Generat ed Referral 12/21/2022 12/21/2023 1 1 [facility] for referral (narrative)* Outpatient Procedure (Routine) - Authorized Specialty Diagnoses / Procedures Referred By Contac t Referred To Contact [facility] Diagnoses Abdominal aortic embolism (HCC) Procedures ECG COMPLETE ECG ROUTINE ECG W/LEAST 12 LDS W/[place] [address] [place] [address] [address] Referral ID Status Reason Start Date Expiration Date Visits Requested Visits Authorized [id number] Authorized Auto-Generat ed Referral 01/30/2024 1 1 [facility] for referral (narrative)No reason for referral information availableWProMedica [facility] Hospital Work Phone: Reason for visit Narrative* Diagnostic Procedure Only (Routine) - Closed Specialty Diagnoses / Procedures Referred By Contac t Referred To Contact US IMAGING Diagnoses Subclinical hypothyroidism Procedures US THYROID/PARATHYROID ULTRASOUND OF THYROID Jules Haynes DO [address] [place] [address] Us Imaging Referral ID Status Reason Start Date Expiration Date V isits Requested Visits Authorized [id number] Closed Auto-Generate d Referral 11/25/2020 12/25/2021 1 1 [facility] for visit Narrative* Outpatient Procedure (Routine) - Denied Specialty Diagnoses / Procedures Referred By Contac t Referred To Contact [facility] [place] Diagnoses Esophageal dysphagia Procedures EGD - THERAPEUTIC, EUS, OR TUBE INTERVENTIONS EGD DILATION GASTRIC/DUODENAL STRICTURE Adam Galvez MD [address] [place] [address] [facility] [address] [place] [address] Referral ID Status Reason Start Date Expiration Date V isits Requested Visits Authorized [id number] Denied Auto-Generate d Referral 12/28/2021 11/08/2022 1 0 [facility] Advance Directives No Advanced Directives Records FoundDocuments on File Type Date Recorded 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 No August 18, 2024 8:13pm Chief Complaint and Reason for Visit Chief [...] complicated Chief Complaint ABD PAIN dizziness, intoxicated Chief Complaint Admit Date abd pain, hematuria August 18, 2024 8:07 pm Family History No Family History Records Found [...] Intraprocedure Given 12/28/2021 10:06 AM EST 1 Lovilia diazePAM injection (VALIUM) X (OR/PROCEDURE) PRN, Starting [...] Given 12/28/2021 10:07 AM EST 3 mg Reason for Referral Specialty Diagnoses / Procedures Referred By Mohan barboza Referred To Contact Ent - Otolaryngology Diagnoses Nightmares Fatigue, unspecified type Chronic insomnia Restless sleeper BOBBY (obstructive sleep apnea) Procedures CONSULT TO SLEEP SURGERY-ADULT Virginia Lyon APRN.MANAGER MEDICARE [address] [place] [address] Referral ID Status Reason Start Date Expiration Date Visits Requested Visits Authorized [id number] Ref Not Required PCP Requested Referral 10/06/2022 09/27/2023 1 1 Specialty Diagnoses / Procedures Referred By Contac t Referred To Contact Diagnoses Impaired auditory discrimination, left Procedures HEARING TEST/AUDIOGRAM COMPRE AUDIOMETRY THRESHOLD EVAL SP Nando Ferrer MD [address] [place] [address] [facility] [address] [place] [address] Referral ID Status Reason Start Date Expiration Date Visits Requested Visits Authorized [id number] Authorized Auto-Generat ed Referral 11/01/2022 01/30/2023 1 1 Referral ID Status Reason Start Date Expiration Date Visits Requested Visits Authorized [id number] Ref Not Required PCP Requested Referral 3 11/22/2023 1 1 Specialty Diagnoses / Procedures Referred By Contac t Referred To Contact Ent - Otolaryngology Diagnoses BOBBY (obstructive sleep apnea) Excessive daytime sleepiness Dream enactment behavior Procedures CONSULT TO ENT OFFICE/OUTPATIENT [facility] 60-74 MINUTES Marck Hammonds MD [address] [place] [address] Referral ID Status Reason Start Date Expiration Date Visits Requested Visits Authorized [id number] Authorized PCP Requested Referral 3 12/16/2023 1 1 Specialty Diagnoses / Procedures Referred By Contac t Referred To Contact Diagnoses Fatigue, unspecified type BOBBY (obstructive sleep apnea) Vivid dream Nightmares Restless sleeper Night sweats Procedures CONSULT TO SLEEP MEDICINE - ADULT OFFICE/OUTPATIENT [facility] 60 MINUTES Virginia Lyon APRN.[facility] [address] [place] [address] Referral ID Status Reason Start Date Expiration Date Visits Requested Visits Authorized [id number] Authorized PCP Requested Referral 03/31/2023 03/30/2024 1 1 Specialty Diagnoses / Procedures Referred By Contac t Referred To Contact [facility] Procedures CARDIOVASCULAR MEDICINE OP FOLLOW UP APPT ORDER Edinson Stinson MD [address] [place] [address] [facility] [address] [place] [address] Referral ID Status Reason Start Date Expiration Date Visits Requested Visits Authorized [id number] Ref Not Required PCP Requested Referral 11/21/2023 05/21/2024 1 1 Specialty Diagnoses / Procedures Referred By Contac t Referred To Contact Dentistry Diagnoses BOBBY (obstructive sleep apnea) RBD (REM behavioral disorder) PLMD (periodic limb movement disorder) Procedures CONSULT TO DENTISTRY OFFICE/OUTPATIENT [facility] 60 MINUTES Jorge Reddy Jr., MD [address] [address] Madhavi Perea, CRISTI [address] [place] [address] Referral ID Status Reason Start Date Expiration Date Visits Requested Visits Authorized [id number] Pending Review PCP Requested Referral 06/23/2023 06/22/2024 1 1 Specialty Diagnoses / Procedures Referred By Contac t Referred To Contact Optometry Diagnoses Vision abnormalities Procedures CONSULT TO OPTOMETRY OFFICE/OUTPATIENT [facility] 60 MINUTES Jules Haynes DO [address] [place] [address] Referral ID Status Reason Start Date Expiration Date Visits Requested Visits Authorized [id number] Authorized PCP Requested Referral 07/31/2023 07/30/2024 1 1 Specialty Diagnoses / Procedures Referred By Contac t Referred To Contact Dentistry Diagnoses Obstructive sleep apnea (adult) (pediatric) Procedures CONSULT TO DENTISTRY OFFICE/OUTPATIENT [facility] 60 MINUTES Jorge Reddy Jr., MD [address] [place] [address] Referral ID Status Reason Start Date Expiration Date Visits Requested Visits Authorized [id number] New Request PCP Requested Referral 01/07/2025 1 1 Summary Purpose Additional Source Comments Source Comments (unrecognize d section and content) In the event this informatio n is protected by the Federal Confidentiality of Alcohol and Drug Abuse Patient Records regulations: The Federal rules restrict any use of the information to criminally investigate or prosecute any alcohol or drug abuse patient.[facility] the event this information is protected by the Federal Confidentiality of Alcohol and Drug Abuse Patient Records regulations: The Federal rules restrict any use of the information to criminally investigate or prosecute any alcohol or drug abuse patient.[facility] the event this information is protected by the Federal Confidentiality of Alcohol and Drug Abuse Patient Records regulations: The Federal rules restrict any use of the information to criminally investigate or prosecute any alcohol or drug abuse patient.[facility] the event this information is protected by the Federal Confidentiality of Alcohol and Drug Abuse Patient Records regulations: The Federal rules restrict any use of the information to criminally investigate or prosecute any alcohol or drug abuse patient.[facility] the event this information is protected by the Federal Confidentiality of Alcohol and Drug Abuse Patient Records regulations: The Federal rules restrict any use of the information to criminally investigate or prosecute any alcohol or drug abuse patient.[facility] the event this information is protected by the Federal Confidentiality of Alcohol and Drug Abuse Patient Records regulations: The Federal rules restrict any use of the information to criminally investigate or prosecute any alcohol or drug abuse patient.[facility] the event this information is protected by the Federal Confidentiality of Alcohol and Drug Abuse Patient Records regulations: The Federal rules restrict any use of the information to criminally investigate or prosecute any alcohol or drug abuse patient.[facility] the event this information is protected by the Federal Confidentiality of Alcohol and Drug Abuse Patient Records regulations: The Federal rules restrict any use of the information to criminally investigate or prosecute any alcohol or drug abuse patient.[facility]In the event this information is protected by the Federal Confidentiality of Alcohol and Drug Abuse Patient Records regulations: The Federal rules restrict any use of the information to criminally investigate or prosecute any alcohol or drug abuse patient.[facility] HospitalIn the event this information is protected by the Federal Confidentiality of Alcohol and Drug Abuse Patient Records regulations: The Federal rules restrict any use of the information to criminally investigate or prosecute any alcohol or drug abuse patient.[facility] HospitalIn the event this information is protected by the Federal Confidentiality of Alcohol and Drug Abuse Patient Records regulations: The Federal rules restrict any use of the information to criminally investigate or prosecute any alcohol or drug abuse patient.[facility] HospitalIn the event this information is protected by the Federal Confidentiality of Alcohol and Drug Abuse Patient Records regulations: The Federal rules restrict any use of the information to criminally investigate or prosecute any alcohol or drug abuse patient.[facility] HospitalIn the event this information is protected by the Federal Confidentiality of Alcohol and Drug Abuse Patient Records regulations: The Federal rules restrict any use of the information to criminally investigate or prosecute any alcohol or drug abuse patient.[facility] HospitalIn the event this information is protected by the Federal Confidentiality of Alcohol and Drug Abuse Patient Records regulations: The Federal rules restrict any use of the information to criminally investigate or prosecute any alcohol or drug abuse patient.[facility] HospitalIn the event this information is protected by the Federal Confidentiality of Alcohol and Drug Abuse Patient Records regulations: The Federal rules restrict any use of the information to criminally investigate or prosecute any alcohol or drug abuse patient.[facility] HospitalIn the event this information is protected by the Federal Confidentiality of Alcohol and Drug Abuse Patient Records regulations: The Federal rules restrict any use of the information to criminally investigate or prosecute any alcohol or drug abuse patient.[facility] HospitalIn the event this information is protected by the Federal Confidentiality of Alcohol and Drug Abuse Patient Records regulations: The Federal rules restrict any use of the information to criminally investigate or prosecute any alcohol or drug abuse patient.[facility] HospitalIn the event this information is protected by the Federal Confidentiality of Alcohol and Drug Abuse Patient Records regulations: The Federal rules restrict any use of the information to criminally investigate or prosecute any alcohol or drug abuse patient.[facility] HospitalIn the event this information is protected by the Federal Confidentiality of Alcohol and Drug Abuse Patient Records regulations: The Federal rules restrict any use of the information to criminally investigate or prosecute any alcohol or drug abuse patient.[facility] HospitalIn the event this information is protected by the Federal Confidentiality of Alcohol and Drug Abuse Patient Records regulations: The Federal rules restrict any use of the information to criminally investigate or prosecute any alcohol or drug abuse patient.[facility] HospitalIn the event this information is protected by the Federal Confidentiality of Alcohol and Drug Abuse Patient Records regulations: The Federal rules restrict any use of the information to criminally investigate or prosecute any alcohol or drug abuse patient.[facility] HospitalIn the event this information is protected by the Federal Confidentiality of Alcohol and Drug Abuse Patient Records regulations: The Federal rules restrict any use of the information to criminally investigate or prosecute any alcohol or drug abuse patient.[facility] HospitalIn the event this information is protected by the Federal Confidentiality of Alcohol and Drug Abuse Patient Records regulations: The Federal rules restrict any use of the information to criminally investigate or prosecute any alcohol or drug abuse patient.[facility] HospitalIn the event this information is protected by the Federal Confidentiality of Alcohol and Drug Abuse Patient Records regulations: The Federal rules restrict any use of the information to criminally investigate or prosecute any alcohol or drug abuse patient.[facility] HospitalIn the event this information is protected by the Federal Confidentiality of Alcohol and Drug Abuse Patient Records regulations: The Federal rules restrict any use of the information to criminally investigate or prosecute any alcohol or drug abuse patient.[facility] HospitalIn the event this information is protected by the Federal Confidentiality of Alcohol and Drug Abuse Patient Records regulations: The Federal rules restrict any use of the information to criminally investigate or prosecute any alcohol or drug abuse patient.[facility] HospitalIn the event this information is protected by the Federal Confidentiality of Alcohol and Drug Abuse Patient Records regulations: The Federal rules restrict any use of the information to criminally investigate or prosecute any alcohol or drug abuse patient.[facility] HospitalIn the event this information is protected by the Federal Confidentiality of Alcohol and Drug Abuse Patient Records regulations: The Federal rules restrict any use of the information to criminally investigate or prosecute any alcohol or drug abuse patient.[facility] HospitalIn the event this information is protected by the Federal Confidentiality of Alcohol and Drug Abuse Patient Records regulations: The Federal rules restrict any use of the information to criminally investigate or prosecute any alcohol or drug abuse patient.[facility] HospitalIn the event this information is protected by the Federal Confidentiality of Alcohol and Drug Abuse Patient Records regulations: The Federal rules restrict any use of the information to criminally investigate or prosecute any alcohol or drug abuse patient.[facility] HospitalIn the event this information is protected by the Federal Confidentiality of Alcohol and Drug Abuse Patient Records regulations: The Federal rules restrict any use of the information to criminally investigate or prosecute any alcohol or drug abuse patient.[facility] HospitalIn the event this information is protected by the Federal Confidentiality of Alcohol and Drug Abuse Patient Records regulations: The Federal rules restrict any use of the information to criminally investigate or prosecute any alcohol or drug abuse patient.[facility] HospitalIn the event this information is protected by the Federal Confidentiality of Alcohol and Drug Abuse Patient Records regulations: The Federal rules restrict any use of the information to criminally investigate or prosecute any alcohol or drug abuse patient.[facility] HospitalIn the event this information is protected by the Federal Confidentiality of Alcohol and Drug Abuse Patient Records regulations: The Federal rules restrict any use of the information to criminally investigate or prosecute any alcohol or drug abuse patient.[facility] HospitalIn the event this information is protected by the Federal Confidentiality of Alcohol and Drug Abuse Patient Records regulations: The Federal rules restrict any use of the information to criminally investigate or prosecute any alcohol or drug abuse patient.[facility] HospitalIn the event this information is protected by the Federal Confidentiality of Alcohol and Drug Abuse Patient Records regulations: The Federal rules restrict any use of the information to criminally investigate or prosecute any alcohol or drug abuse patient.[facility] HospitalIn the event this information is protected by the Federal Confidentiality of Alcohol and Drug Abuse Patient Records regulations: The Federal rules restrict any use of the information to criminally investigate or prosecute any alcohol or drug abuse patient.[facility] HospitalIn the event this information is protected by the Federal Confidentiality of Alcohol and Drug Abuse Patient Records regulations: The Federal rules restrict any use of the information to criminally investigate or prosecute any alcohol or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 [address] PCP - General Family Medicine 06/02/15 Jules Haynes DO [address] [place] [address] Family Medicine 03/05/13 Edinson Stinson MD [address] [place] [address] Primary Staff Physician Cardiology 05/22/23 Food Analyst Relationship Specialty Start Date End Date Jules Haynes DO [address] [facility] [place] [address] PCP - General Family Medicine 06/02/15 Jules Haynes DO [address] [facility] [place] [address] Family Medicine 03/05/13 Food Analyst Relationship Specialty Start Date End Date Jules Haynes DO [address] [facility] [place] [address] PCP - General Family Medicine 06/02/15 Jules Haynes DO [address] [facility] [place] [address] Family Medicine 03/05/13 Edinson Stinson MD [address] [facility] [place] [place] [id number] Primary Staff Physician Cardiology 05/22/23 Food Analyst Relationship Specialty Start Date End Date Jules Haynes DO [address] [facility] [place] [address] PCP - General Family Medicine 06/02/15 Jules Haynes DO [address] [facility] [place] [address] Family Medicine 03/05/13 Edinson Stinson MD [address] [facility] [place], [place] [address] Primary Staff Physician Cardiology 05/22/23 Rosalina Morgan, SABINE.MANAGER MEDICARE [address] [facility] [place] [address] Newspaper Vendor Family Medicine 01/28/24 Virginia Lyon APRN.MANAGER MEDICARE [address] [facility] [place] [address] Newspaper Vendor Family [facility] 01/28/24 Food Analyst Relationship Specialty Start Date End Date Jules Haynes DO [address] [facility] [place] [address] PCP - General Family Medicine 06/02/15 Jules Haynes DO [address] [facility] [place] [address] Family Medicine 03/05/13 Edinson Stinson MD [address] [place] [address] Primary Staff Physician Cardiology 05/22/23 Rosalina Morgan, DENTAL THERAPIST.MANAGER MEDICARE [address] [place] [address] Newspaper Vendor Family [facility] 01/28/24 Virginia Lyon, DENTAL THERAPIST.MANAGER MEDICARE [address] [place] [address] [facility] 01/28/24 Food Analyst Relationship Specialty Start Date End Date Jules Haynes DO [address] [facility] [place] [address] PCP - General Family Medicine 06/02/15 Jules Haynes DO [address] [facility] [place] [address] Family Medicine 03/05/13 Edinson Stinson MD [address] [place], [place] [address] Primary Staff Physician Cardiology 05/22/23 Rosalina Morgan, DENTAL THERAPIST.MANAGER MEDICARE [address] [place] [address] Newspaper Vendor Family [facility] 01/28/24 Virginia Lyon, DENTAL THERAPIST.MANAGER MEDICARE [address] [place] [address] Newspaper Vendor Family [facility] 01/28/24 Food Analyst Relationship Specialty Start Date End Date Jules Haynes DO [address] [place] [address] PCP - General Family Medicine 06/02/15 Jules Haynes DO [address] [place] [address] Family Medicine 03/05/13 Edinson Stinson MD [address] [place] [address] Primary Staff Physician Cardiology 05/22/23 Rosalina Morgan, DENTAL THERAPIST.MANAGER MEDICARE [address] [place] [address] Newspaper Vendor [facility] 01/28/24 Virginia Lyon, DENTAL THERAPIST.MANAGER MEDICARE [address] [place] [address] Newspaper Vendor Family [facility] 01/28/24 Food Analyst Relationship Specialty Start Date End Date Jules Haynes DO [address] [place] [address] PCP - General Family Medicine 06/02/15 Jules Haynes DO [address] [place] [address] Family Medicine 03/05/13 Edinson Stinson MD [address] [place], [place] [address] Primary Staff Physician Cardiology 05/22/23 Rosalina Morgan APRN.MANAGER MEDICARE [address] [facility] [place] [address] Newspaper Vendor Family Medicine 01/28/24 Virginia Lyon DENTAL THERAPIST.MANAGER MEDICARE [address] [facility] [place] [address] Newspaper Vendor [facility] 01/28/24 Food Analyst Relationship Specialty Start Date End Date Jules Haynes DO [address] [facility] [place] [address] PCP - General Family Medicine 06/02/15 Jules Haynes DO [address] [facility] [place] [address] Family Medicine 03/05/13 Edinson Stinson MD [address] [place] [address] Primary Staff Physician Cardiology 05/22/23 Rosalina Morgan DENTAL THERAPIST.MANAGER MEDICARE [address] [facility] [place] [address] Newspaper Vendor Family [facility] 01/28/24 Virginia Lyon APRN.MANAGER MEDICARE [address] [facility] [place] [address] Newspaper Vendor Family [facility] 01/28/24 Food Analyst Relationship Specialty Start Date End Date Jules Haynes DO [address] [facility] [place] [address] PCP - General Family Medicine 06/02/15 Jules Haynes DO [address] [place] [address] Family Medicine 03/05/13 Edinson Stinson MD [address] [place] [address] Primary Staff Physician Cardiology 05/22/23 Rosalina Morgan DENTAL THERAPIST.MANAGER MEDICARE [address] [place] [address] Newspaper Vendor Family [facility] 01/28/24 Virginia Lyon DENTAL THERAPIST.MANAGER MEDICARE [address] [place] [address] Newspaper Vendor [facility] 01/28/24 Food Analyst Relationship Specialty Start Date End Date Jules Haynes DO [address] [place] [address] PCP - General Family Medicine 06/02/15 Jules Haynes DO [address] [place] [address] Family Medicine 03/05/13 Edinson Stinson MD [address] [place] [address] Primary Staff Physician Cardiology 05/22/23 Virginia Lyon, DENTAL THERAPIST.MANAGER MEDICARE [address] [place] [address] Newspaper Vendor Family [facility] 01/28/24 Food Analyst Relationship Specialty Start Date End Date Jules Haynes DO [address] [place] [address] PCP - General Family Medicine 06/02/15 Jules Haynes DO [address] [place] [address] Family Medicine 03/05/13 Edinson Stinson MD [address] [place], [place] [address] Primary Staff Physician Cardiology 05/22/23 Virginia Lyon, DENTAL THERAPIST.MANAGER MEDICARE [address] [place] [address] Newspaper Vendor [facility] 01/28/24 Food Analyst Relationship Specialty Start Date End Date Jules Haynes DO [address] [place] [address] PCP - General Family Medicine 06/02/15 Jules Haynse DO [address] [place] [address] Family Medicine 03/05/13 Edinson Stinson MD [address] [facility] [place] [address] Primary Staff Physician Cardiology 05/22/23 Virginia Lyon, DENTAL THERAPIST.MANAGER MEDICARE [address] [place] [address] Newspaper Vendor Family Medicine 01/28/24 Food Analyst Relationship Specialty Start Date End Date Jules Haynes DO [address] [place] [address] PCP - General Family Medicine 06/02/15 Jules Haynes DO [address] [place] [address] Family Medicine 03/05/13 Edinson Stinson MD [address] [place] [address] Primary Staff Physician Cardiology 05/22/23 Virginia Lyon, DENTAL THERAPIST.MANAGER MEDICARE [address] [place] [address] Newspaper Vendor Family Medicine 01/28/24 Food Analyst Relationship Specialty Start Date End Date Jules Haynes DO [address] [place] [address] PCP - General Family Medicine 06/02/15 Jules Haynes DO [address] [place] [address] Family Medicine 03/05/13 Edinson Stinson MD [address] [place] [address] Primary Staff Physician Cardiology 05/22/23 Virginia Lyon, DENTAL THERAPIST.MANAGER MEDICARE [address] [place] [address] Newspaper Vendor Family Medicine 01/28/24 Alicia River, DENTAL THERAPIST.MANAGER MEDICARE [address] [place] [address] Newspaper Vendor Family Medicine 08/05/24 Food Analyst Relationship Specialty Start Date End Date Jules Haynes DO [address] [facility] [place] [address] PCP - General Family Medicine 06/02/15 Jules Haynes DO [address] [facility] [place] [place] [address] Family Medicine 03/05/13 Edinson Stinson MD [address] [place], [place] [address] Primary Staff Physician Cardiology 05/22/23 Virginia Lyon, DENTAL THERAPIST.MANAGER MEDICARE [address] [facility] [place] [address] Newspaper Vendor Family Medicine 01/28/24 Alicia River, DENTAL THERAPIST.MANAGER MEDICARE [address] [place] [address] Newspaper Vendor Family [facility] 08/05/24 Food Analyst Relationship Specialty Start Date End Date Jules Haynes DO [address] [facility] [place] [address] PCP - General Family Medicine 06/02/15 Jules Haynes DO [address] [facility] [place] [place] [address] Family Medicine 03/05/13 Edinson Stinson MD [address] [place], [place] [address] Primary Staff Physician Cardiology 05/22/23 Virginia Lyon, DENTAL THERAPIST.MANAGER MEDICARE [address] [facility] [place], [place] [address] [facility] Family [facility] 01/28/24 Alicia River, DENTAL THERAPIST.MANAGER MEDICARE [address] [place], [place] [id number] [facility] 08/05/24 Team Status: Active Member Role/Relationship Status Dates Dr. Jules Haynes DO Primary Care Provider Active Team Status: Inactive Member Role/Relationship Status Dates Dr. Jules Haynes DO Primary Care Provider Active Start: August 18, 2024 End: August 18, 2024 Dr. Julian Sifuentes DO Emergency Provider Active Start: August 18, 2024 End: August 18, 2024 Food Analyst Relationship Specialty Start Date End Date Jules Haynes DO [address] [place], [place] [address] PCP - General Family Medicine 06/02/15 Jules Haynes DO [address] [place], [place] [address] Family Medicine 03/05/13 Edinson Stinson MD [address] [place] [address] Primary Staff Physician Cardiology 05/22/23 Virginia Lyon, DENTAL THERAPIST.MANAGER MEDICARE [address] [place], [place] [address] [facility] 01/28/24 Alicia River, DENTAL THERAPIST.MANAGER MEDICARE [address] [place], [place] [id number] [facility] 08/05/24 Food Analyst Relationship Specialty Start Date End Date Jules Haynes DO [address] [place], [place] [address] PCP - General Family Medicine 06/02/15 Jules Haynes DO [address] [place] [address] Family Medicine 03/05/13 Edinson Stinson MD [address] [place] [address] Primary Staff Physician Cardiology 05/22/23 Virginia Lyon APRN.MANAGER MEDICARE [address] [place] [address] [facility] 01/28/24 Alicia River APRN.MANAGER MEDICARE [address] [place] [address] [facility] 08/05/24 Food Analyst Relationship Specialty Start Date End Date Jules Haynes DO [address] [place] [address] PCP - General Family Medicine 06/02/15 Jules Haynes DO [address] [place] [address] Family Medicine 03/05/13 Edinson Stinson MD [address] [facility] [place] [address] Primary Staff Physician Cardiology 05/22/23 Virginia Lyon, SABINE.MANAGER MEDICARE [address] [place] [address] [facility] 01/28/24 Alicia River APRN.MANAGER MEDICARE [address] [place] [address] [employer] [facility] 08/05/24 Food Analyst Relationship Specialty Start Date End Date Jules Haynes DO [address] [place] [address] PCP - General Family Medicine 06/02/15 Jules Haynes DO [address] [place] [address] Family Medicine 03/05/13 Edinson Stinson MD [address] [place] [address] Primary Staff Physician Cardiology 05/22/23 Virginia Lyon, DENTAL THERAPIST.MANAGER MEDICARE [address] [place] [address] Newspaper Vendor Family Medicine 01/28/24 Alicia River, DENTAL THERAPIST.MANAGER MEDICARE [address] [place] [address] Newspaper Vendor Family [facility] 08/05/24 Food Analyst Relationship Specialty Start Date End Date Jules Haynes DO [address] [place] [address] PCP - General Family Medicine 06/02/15 Jules Haynes DO [address] [place] [address] Family Medicine 03/05/13 Edinson Stinson MD [address] [place] [address] Primary Staff Physician Cardiology 05/22/23 Virginia Lyon, DENTAL THERAPIST.MANAGER MEDICARE [address] [place], [place] [address] [facility] 01/28/24 Alicia River, DENTAL THERAPIST.MANAGER MEDICARE [address] [place], [place] [address] [facility] 08/05/24 Food Analyst Relationship Specialty Start Date End Date Jules Haynes DO [address] [place], [place] [address] PCP - General Family Medicine 06/02/15 Jules Haynes DO [address] [place], [place] [address] Family [facility] 03/05/13 Edinson Stinson MD [address] [place] [address] Primary Staff Physician Cardiology 05/22/23 Virginia Lyon, DENTAL THERAPIST.MANAGER MEDICARE [address] [place], [place] [address] [facility] 01/28/24 Alicia River, DENTAL THERAPIST.MANAGER MEDICARE [address] [place], [place] [phone] [facility] 08/05/24 Goals (unrecognized section and content) Goals may be documented in a n alternate sectionGoals may be documented in an alternate sectionGoals may be documented in an alternate section (unrecognized sect ion and content) No Status Records FoundNo Status Records FoundNo Status Records FoundNo Status Records Found INFORMATION SOURCE (unrecogn ized section and content) DATE CREATED AUTHOR 11/23/2022 [facility] DATE CREATED AUTHOR AUTHOR'S ORGANIZ ATION 08/23/2024 [facility] DATE CREATED AUTHOR AUTHOR'S ORGANIZ ATION 09/19/2024 [facility] DATE CREATED AUTHOR AUTHOR'S ORGANIZ ATION 10/04/2024 [facility] nter FOR RECORDS PERTAINING TO PATIENTS WHO ARE [...] BE BASED ON THE PRIMARY CLINICAL RECORDS. The [employer]. provides no warranty or guarantee of the accuracy or completeness of information in this document.
[2024-10-05 02:31] LABS: Red Blood Cells-Urine 50-100 SEEN /hpf (0-5)
[2024-10-05 02:52] VITALS: PULSE 73; O2SAT 96
[2024-10-05] MEDS: 0.9% Normal Saline (500mL Bag) 500 ML 999 ML IV (03:58)
[2024-10-05 04:00] VITALS: BP 144/83; PULSE 70; PULSE 73; RESP 18; TEMP 36.6; O2SAT 96; O2SAT 97
== END 2024-10-05 04:39 | disposition home or self-care (01) ==
PROVIDERS: Emergency Provider Emergency Medicine; PCP Student in an Organized Health Care Education/Training Program; Visit Provider Emergency Medicine
DX: N17.9 Acute kidney failure, unspecified (principal); N10 Acute pyelonephritis; R31.9 Hematuria, unspecified; Z87.891 Personal history of nicotine dependence; R10.9 Unspecified abdominal pain; Z96.0 Presence of urogenital implants; Z99.89 Dependence on other enabling machines and devices; K21.9 Gastro-esophageal reflux disease without esophagitis; Z79.899 Other long term (current) drug therapy; N40.0 Benign prostatic hyperplasia without lower urinary tract symptoms; G47.33 Obstructive sleep apnea (adult) (pediatric)
CPT/HCPCS: 74178; 80048; 80053; 81001; 83605; 85025; 87040; 87086; 96361; 96365; 96374; 96375; 96376; 99283; 99284; Q9967; A4216; J2405

== ENCOUNTER 2024-10-05 12:15 | Emergency (ER) | payer OTHER, SELFPAY ==
[2024-10-05] VITALS (10 sets, daily range): BP systolic 131–211; BP diastolic 74–106; PULSE 57–84; RESP 11–20; TEMP 36.1–36.9; O2SAT 94–99; BMI 26.9
--- NOTE | 2024-10-05 12:46 | EDS_ITS ---
HPI History of Present Illness Chief Complaint: Complaint Narrative Narrative: Patient is a 64-year-old male past medical history of factor V Leiden, BOBBY, GERD, BPH who presents to the emergency department chief complaint of left-sided abdominal and back pain. Patient states that he was here earlier today and notes that he was ultimately sent home. He states that he recently had a procedure where he had a stent placed on the right side but notes that ever since the surgery his left side had also been not right. He states that he was given new antibiotic care yesterday. Patient's significant other bedside states that they wanted to admit him earlier this morning. However after discussions they ultimately went home. Patient states that his pain has significantly worsened prompting him to come to the emergency department. Patient did note that he has been pushing lots of water and notes that he was peeing however notes that he has tried to pee 3 times now and has been unable to do so [facility] Medical History BPH (benign prostatic hyperplasia) GERD (gastroesophageal reflux disease) Factor 5 Leiden mutation, heterozygous CPAP (continuous positive airway pressure) dependence Sleep apnea Home Medications ?Medication ?Instructions ?Recorded ?Last Taken ?Type finasteride 5 mg tablet 5 mg PO DAILY 09/17/2210/04 History aspirin 81 mg tablet 81 mg PO DAILY 10/05/2408/14 History cefuroxime axetil 500 mg tablet 500 mg PO BID 10/05/24 10/04/24 History clonazepam 1 mg tablet 1 mg PO QHS 10/05/24 5 History dicyclomine 10 mg capsule 10 mg PO 4X/DAY 10/05/24 History fluoxetine 40 mg capsule 40 mg PO DAILY 10/05/2409/20 History melatonin 5 mg capsule 5 mg PO QHS 10/05/24 5 History rosuvastatin 20 mg tablet 20 mg PO QHS 10/05/24 History Allergy/AdvReac Type Severity Reaction Status Date / Time No Known Allergies Allergy Verified 10/05/24 12:58 Family History Father Heart disease Hypertension Mother COPD (chronic obstructive pulmonary disease) Surgical History H/O excision of mass Social History household members: spouse housing: house Smoking Status: Former smoker alcohol intake: current details: drinks 5-6 shots of whisky a day substance use type: marijuana ROS ROS ED ROS Narrative Constitutional: Denies fevers, chills Cardiovascular: Denies chest pain Respiratory: Denies shortness of breath Abdomen: Complains of abdominal discomfort as noted above : States that he was urinating clots earlier and now he states that he cannot urinate Neurological: Denies numbness, weakness, tingling Musculoskeletal: Complains of left-sided back pain Skin: Denies any rashes or lesions EXAM Physical Exam Narrative Exam Narrative: General: Patient lying in bed resting comfortably did not appear to be acute distress Head: Atraumatic, normocephalic Eyes: PERRL bilaterally, EOMI bilaterally, no conjunctival injection noted Neck: Soft, supple, trachea midline Cardiovascular: Regular rate and rhythm Respiratory: Clear to auscultation bilaterally Abdomen: Patient has mild tenderness to palpation suprapubic region in the left lower quadrant no rebound or guarding on exam Extremities: +5/5 strength noted in the bilateral upper and lower extremities Neurological: Patient follow commands knew that he was at [facility] the year is 2024 Skin: Warm, dry, intact no rashes or lesions noted Const Vital Signs: 10/05/24 12:16 10/05/24 13:34 10/05/24 14:23 Temperature 97 F L 98.4 F Temperature Source Temporal Oral Pulse Rate 84 60 57 L Respiratory Rate 20 H 16 11 L Blood Pressure 131/78 H 131/76 H 134/78 H Blood Pressure Mean 95 94 96 Pulse Ox 99 97 94 Oxygen Delivery Method Room Air Room Air Room Air 10/05/24 15:31 Temperature Temperature Source Pulse Rate 62 Respiratory Rate 20 H Blood Pressure 149/84 H Blood Pressure Mean 105 Pulse Ox 97 Oxygen Delivery Method Room Air MDM MDM MDM Narrative Medical decision making narrative: Patient is a 64-year-old male who presented to the emergency department with the chief complaint of abdominal pain and back pain. On the differential diagnosis includes but not limited to urinary retention, kidney stone, UTI, pyelonephritis. Once workup is obtained reviewed he will be reevaluated. Patient will be given IV fluids, and be bladder scan. If bladder scan is within normal limits will provide pain medication such as morphine and Zofran. Dr. Marcus note was reviewed from earlier this morning and patient earlier this morning was given a gram of Rocephin was changed antibiotic to ciprofloxacin. He did discuss the case with on-call urologist at [facility] Dr. Deluca who advises not transferring or admitting the patient and discharging him with follow-up in the outpatient setting on Monday. Patient CBC was reviewed showed no evidence leukocytosis white blood count was normal 8.1, he was 1.4, platelet count was 119. Patient sodium normal 136, potassium was 4.3, creatinine was 1.58 which earlier today was 1.75. Lactic acid was less than 1. Patient AST and ALT are [address] abdomen pelvis with and without contrast was reviewed earlier today which showed right nephroureteral stent in good position. Moderate left hydroureteronephrosis possibly recent passage of calculus versus an ascending urinary tract infection. No obstructing stone or drainable abscess formation. Mild diffuse thickening of the bladder possibly cystitis. Minimal gas density in the lumen of the bladder possibly recent instrumentation mild gastroparesis noted. I went back in and discussed the results with the patient and given that he was here earlier this morning around 1 AM I advised him that we should transfer to [facility] in [place] for his intractable pain. He was agreeable with this plan. Patient did urinate and had significant pain again therefore he was given a second dose of morphine. I reached out to the internal medicine physician at [facility] in [place] Dr. Howe who accept the patient for transfer. Patient notified as well as significant other at bedside all question concerns answered. Lab Data Labs: Laboratory Results - last 24 hr 10/05/24 10/05/24 12:43 12:45 WBC 8.1 RBC 3.62 L Hgb 11.4 L Hct 33.3 L MCV 92.0 MCH 31.5 MCHC 34.2 RDW Std Deviation 41.6 RDW Coeff of Jessenia 12.3 Plt Count 119 L MPV 10.3 Immature Gran % (Auto) 0.200 Neut % (Auto) 75.2 H Lymph % (Auto) 10.8 L Douglas % (Auto) 10.8 H Eos % (Auto) 2.8 Baso % (Auto) 0.2 Absolute Neuts (auto) 6.1 Absolute Lymphs (auto) 0.87 Nucleated RBC % 0 Sodium 136 Potassium 4.3 Chloride 103 Carbon Dioxide 23.5 Anion Gap 10 BUN 16 Creatinine 1.58 H Estim Creat Clear Calc 48.98 L Est GFR (MDRD) Non-Af 48 L BUN/Creatinine Ratio 10.2 Glucose 115 H Lactic Acid < 1.0 Calcium 9.0 Total Bilirubin 0.55 AST 21 ALT 9 Alkaline Phosphatase 50 Total Protein 5.9 Albumin 3.8 Globulin 2.1 L Albumin/Globulin Ratio 1.8 Discharge Plan Triage Chief Complaint: Complaint ED Provider: Juliano Pepper Dx/Rx/DC Orders Clinical Impression: JEOVANNY (acute kidney injury), Hematuria, Intractable abdominal pain, Status post cystoscopy with ureteral stent placement Prescriptions: No Action finasteride 5 mg tablet 5 mg PO DAILY fluoxetine 40 mg capsule 40 mg PO DAILY clonazepam 1 mg tablet 1 mg PO QHS dicyclomine 10 mg capsule 10 mg PO 4X/DAY rosuvastatin 20 mg tablet 20 mg PO QHS melatonin 5 mg capsule 5 mg PO QHS cefuroxime axetil 500 mg tablet 500 mg PO BID aspirin 81 mg tablet 81 mg PO DAILY Primary Care Provider: Jules Haynes Referrals: Jules Haynes DO [Primary Care Provider] - Print Language: Telugu Disposition Disposition: DC/Tx to Another Type of HCF
[2024-10-05] MEDS: 0.9% Normal Saline (1000mL) 1,000 ML 999 ML IV (13:02)
[2024-10-05 13:04] LABS: Hematocrit 33.3 % (40-54); Hemoglobin 11.4 g/dL (13.0-16.5); Immature Granulocytes Count 0.020 X10^3/uL (0.0-0.0); Mean Corp Hgb Conc 34.2 g/dL (32-36); Mean Corpuscular Volume 92.0 fL (80-94); Mean Platelet Vol. 10.3 fl (6.2-12.0); NRBC Flagged by Analyzer 0 % (0-5); Platelet Count 119 K/mm3 (150-450); RBC Distribution Width CV 12.3 % (11.6-14.6); RBC Distribution Width SD 41.6 fl (35.1-43.9); Red Blood Count 3.62 M/mm3 (4.6-6.2); White Blood Count 8.1 K/mm3 (4.4-11.0)
--- OUTSIDE RECORDS SUMMARY | 2024-10-05 13:14 | XMS RPT_ITS | CCD ---
Author Organization [facility] Care Team Providers Care Parts Designer Name Role Phone Jules Haynes DO Unavailable [...] LYON Referring Unavailable Edinson Stinson MD Unavailable Jules Haynes DO Primary Care Provider Eddie REJECTOR.Rosalina DING Unavailable Virginia Lyon APRN.CNP Unavailable Perico REJECTOR.Alicia DING Unavailable Dr. Jules Haynes DO Primary Care Provider [phone] Dr. Julian Sifuentes DO Emergency Provider [phone] Julian Sifuentes Attending Unavailable Haynes, Jules Primary Care Unavailable CEE, CLARISSE Attending Unavailable HAYNES, JULES L Primary Care Unavailable HAYNES, JULES L Primary Care Unavailable SUSHANT COLMENARSE Attending Unavailable HAYNES, JULES L Primary Care Unavailable JORGE REDDY JR Attending Unavailable HAYNES, JULES L Primary Care Unavailable JORGE REDDY JR Referring [...] Primary Care Unavailable JOAQUIN ELLISON Referring Unavailable CLEMENCAI PRICE Attending Unavailable HAYNES, JULES Pallavi Primary Care Unavailable CLEMENCIA PRICE Admitting Unavailable CLEMENCIA PRICE Attending Unavailable HAYNES, JULES L Primary Care Unavailable Dr. Julian Sifuenets DO Attending Provider Dr. Brett Marcus MD Emergency Provider Medications Current Medications Medication Drug Class(es) Dates Sig (Normalized) Sig (Original) acetaminophen 325 mg / oxyCODONE hydrochloride 5 mg oral tablet (1 source) Opioid Agonist Start: 10-05-2024 take 1 tablet by mouth every six hours as needed for pain Oxycodone-Acetaminop hen 5-325 mg tablet Active 1 {tbl} PO EVERY 6 HOURS NEEDED as needed for Pain 12 3 0 October 05, 2024 Acute pyelonephritis Acute pyelonephritis Start: 10-05-2024 take 1 tablet by aki th every six hours as needed for pain Oxycodone-Acetaminophen 5-325 mg tablet Active 1 {tbl} PO EVERY 6 HOURS NEEDED as needed for Pain 12 3 0 October 05, 2024 Acute pyelonephritis Acute pyelonephritis amoxicillin 875 mg / clavulanate 125 mg oral tablet (3 sources) Penicillin-class Antibacterial Start: 08-04-2024 End: 08-14-2024 take 1 tablet by mouth twice daily amoxicillin-clavulanate potassium (AUGMENTIN) 875-125 mg per tablet Indications: Dog bite of left hand, initial encounter Take 1 tablet by mouth two times a day for 10 days. 20 tablet 08/04/2024 08/14/2024 Active aspirin 81 mg oral tablet (2 sources) Platelet Aggregation Inhibitor, Nonsteroidal Anti-inflammatory Drug Aspirin 81 mg tab Ta ke 81 mg by mouth. Active ciprofloxacin 250 mg oral tablet (3 sources) Quinolone Antimicrobial Start: 10-05-2024 take 1 tablet by mouth every twelve hours Ciprofloxacin Hcl 250 mg tablet Active 250 mg PO Q12H 14 7 0 October 05, 2024 12:00am Start: 08-18-2024 End: 10-05-2024 take 1 tablet by mouth twice daily Ciprofloxacin Hcl 500 mg tablet Discontinued 500 mg PO TWICE A DAY 6 0 August 18, 2024 12:00am October 05, 2024 3:50am clonazePAM 1 mg oral tablet (20 sources) Benzodiazepine Start: 02-19-2024 End: 03-02-2025 take 1 tablet by mouth at bedtime Clonazepam 1 mg tablet Active 1 mg PO AT BEDTIME October 05, 2024 12:00am Start: 08-30-2023 End: 02-08-2024 clonazePAM (KLONOPIN) 1 [...] Apply to affected ar ea twice daily. dicyclomine hydrochloride 10 mg oral capsule (20 sources) Anticholinergic Start: 10-06-19 take 1 capsule by mouth four times daily Dicyclomine 10 mg capsule Active 10 mg PO 4 TIMES DAILY October 05, 2024 12:00am Start: 12-09-2022 End: 08-18-2024 take 1 capsule by mouth at bedtime [...] on above: Take 1 capsule by mo [facility] before meals and at bedtime. For bowels/irritable bowels finasteride 5 mg oral tablet (20 sources) 5-alpha Reductase Inhibitor Start: 09-18-19 End: 08-22-19 take 1 tablet by mouth once daily Finasteride 5 mg tablet Active 5 mg PO DAILY September 17, 2022 12:00am Start: 03-24-2021 End: 11-26-2021 take 1 tablet [...] take 1 capsule by mouth once daily Fluoxetine 40 mg capsule Active 40 mg PO DAILY October 05, 2024 12:00am Start: 12-26-2022 End: 02-28-2024 take 1 capsule by mouth once daily FLUoxetine (PROZAC) 40 mg capsule Take 1 capsule by mouth once daily. 90 capsule 11/30/2023 Active Start: 09-17-2022 End: 10-05-2024 take 1 capsule by mouth once daily Fluoxetine 10 mg capsule Discontinued 10 mg PO DAILY September 17, 2022 12:00am October 05, 2024 4:03am Start: 04-11-2022 End: 12-26-2022 take 1 capsule [...] on above: Take 1 capsule by mo [facility] once daily. TAKE ONE CAPSULE BY MOUTH EVERY DAY LORazepam 0.5 mg oral tablet (2 sources) Benzodiazepine Start: 2 End: 2 take 1 tablet by mouth once daily as needed LORazepam (ATIVAN) 0.5 mg Indications: Anxiety with depression Take 1 tablet by mouth once daily as needed for up to 30 days. 30 tablet 0 11/26/2021 12/26/2021 Active Comment on above: Take 1 tablet by aki once daily as needed for up to 30 days. melatonin 5 mg oral capsule (20 sources) Start: take 1 capsule by mouth at bedtime Melatonin 5 mg capsule Active 5 mg PO AT BEDTIME October 05, 2024 12:00am Start: 01-08-2024 End: 08-14-2025 take 1 tablet by mouth once daily at bedtime melatonin 5 mg chew Indications: RBD (REM behavioral disorder) , Shift work sleep disorder Take 1 tablet by mouth daily at bedtime. 90 tablet 3 08/19/2024 08/14/2025 Active phenylephrine hydrochloride 25 mg/ml ophthalmic solution (2 sources) alpha-1 Adrenergic Agonist Start: 08-15-2023 End: 08-16-2023 PHENYLephrine 2.5 % 1 Drop (AK-DILATE, LUCY-SYNEPHRINE) proparacaine hydrochloride 5 mg/ml ophthalmic solution (2 sources) Local Anesthetic Start: 08-15-2023 End: 08-16-2023 proparacaine 0.5 % 1 Drop (ALCAINE) rosuvastatin calcium 20 mg oral tablet (20 sources) HMG-CoA Reductase Inhibitor Start: 10-05-2024 take 1 tablet by mouth at bedtime Rosuvastatin 20 mg tablet Active 20 mg PO AT BEDTIME October 05, 2024 12:00am Start: 09-10-2024 take 1 tablet by aki th once daily rosuvastatin (CRESTOR) 20 mg tablet Take 1 tablet by mouth once daily. 90 tablet 3 09/10/2024 Active Start: 06-29-2023 take 1 tablet by aki th once daily in the evening rosuvastatin (CRESTOR) 20 mg tablet Take 1 tablet by mouth once daily. 90 tablet 3 05/21/2024 1:27 PM EDT 06/29/2023 Active Start: 10-27-2021 End: 10-05-2024 take 1 tablet by mouth once daily Rosuvastatin 10 mg tablet Discontinued 10 mg PO DAILY September 17, 2022 12:00am October 05, 2024 4:03am Start: 02-12-2019 End: 10-20-2021 take 1 tablet by mouth once daily at bedtime rosuvastatin (CRESTOR) 10 mg tablet Indications: Hypercholesteremia Take 1 tablet by mouth daily at bedtime. 90 tablet 3 02/12/2019 10/20/2021 Discontinued Comment on above: Take 1 tablet by aki th daily at bedtime. take one tablet by m outh every day at bedtime tropicamide 10 mg/ml ophthalmic solution (2 sources) Anticholinergic Start: 08-15-2023 End: 08-16-2023 tropicamide 1 % 1 Drop (MYDRIACYL) Completed/Discontinued Medications Medication Drug Class(es) Dates Sig (Normalized) Sig (Original) amitriptyline hydrochloride 10 mg oral tablet (20 sources) Tricyclic Antidepressant Start: 09-17-2022 End: 10-05-2024 take 1 tablet by mouth once daily Amitriptyline 10 mg tablet Discontinued 10 mg PO DAILY September 17, 2022 12:00am October 05, 2024 4:04am Start: 06-17-2022 End: 01-08-2024 take 2 tablets [...] at bedtime. Take 2 tablets by mo idh daily at bedtime. bisacodyl 5 mg delayed [...] Prep Kit cefdinir 300 mg oral capsule (4 sources) Cephalosporin Antibacterial Start: End: take 1 capsule by mouth every twelve hours Cefdinir 300 mg capsule Discontinued 300 mg PO Q12H 10 0 September 27, 2021 12:00am September 17, 2022 1:26am cholecalciferol 0.125 mg oral capsule (4 sources) Vitamin D Start: End: take 1 capsule by mouth once daily Cholecalciferol, Vitamin D3, 125 mcg (5,000 unit) cap Indications: Vitamin D deficiency Take 1 capsule by mouth once daily. 90 capsule 3 03/05/2020 10/20/2021 Discontinued Comment on above: Take 1 capsule by mo [facility] once daily. cyclobenzaprine hydrochloride 10 mg oral tablet (3 sources) Muscle Relaxant Start: End: take 1 tablet by mouth three times daily as needed for muscle spasms Cyclobenzaprine 10 mg tablet Discontinued 10 mg PO THREE TIMES A DAY as needed for Muscle Spasm 15 0 September 17, 2022 12:00am October 05, 2024 4:04am Gatorade Sports Drink (5 sources) Start: End: Gatorade Sports Drink Indications: Tenesmus Use as [...] Comment on above: Take 1 capsule by [facility] once daily. levothyroxine sodium 0.05 mg oral tablet (5 sources) l-Thyroxine Start: 11-30-2020 End: 10-21-2021 take 1 tablet by mouth once daily for thyroid dysfunction levothyroxine (LEVOXYL) 50 mcg tablet Indications: Subclinical hypothyroidism Take 1 tablet by mouth once daily. Take on empty stomach. For Thyroid 0 11/30/2020 10/21/2021 Discontinued Comment on above: Take 1 tablet by aki once daily. Take on empty stomach. For [...] once daily Omeprazole 20 mg capsule,delayed release(DR/EC) Discontinued 20 mg PO DAILY September 17, 2022 12:00am October 05, 2024 4:04am Comment on above: Take 1 capsule by [facility] once daily. 30 min before breakfast perflutren lipid microspheres 1.3 mL in NaCl (PF) 0.9% 10 mL injection (DEFINITY) (1 source) Start: 1 End: 2 perflutren lipid microspheres 1.3 mL in NaCl (PF) 0.9% 10 mL injection (DEFINITY) polyethylene glycol 3350 47252 mg powder for oral solution (5 sources) Osmotic Laxative Start: 1 End: 2 polyethylene glycol 3350 (MIRALAX, GLYCOLAX) 17 gram/dose powder Indications: Tenesmus Use as directed for Miralax / Gatorade Bowel Prep Kit 238 g 0 06/03/2020 10/20/2021 Discontinued Start: 10-15-2019 End: 03-04-2020 polyethylene glycol 3350 (NC RALAX, GLYCOLAX) 17 gram/dose powder Indications: Functional bowel disorder Use as directed for Miralax / Gatorade Bowel Prep Kit 238 g 10/15/2019 03/04/2020 Discontinued Comment on above: Use as directed for Miralax / Gatorade Bowel Prep Kit prazosin 1 mg oral capsule (11 sources) alpha-Adrenergic Faith Start: 3 take 1 capsule by mouth at bedtime, [...] mg/ml injection (2 sources) Start: 5 End: 5 0.9 % sodium chloride (NACL 0.9%) infusion Indications: Gross hematuria Administer at rate defined per CT contrast administration specifications. To be provided with radiology test. 150 mL 08/20/2024 08/20/2024 Start: 02-28-2020 End: 05-29-2021 sodium chloride 0.9 % (flush ) 10 mL (BD POSIFLUSH) traMADol hydrochloride 50 mg oral tablet (3 sources) Opioid Agonist Start: 09-17-2022 End: 10-05-2024 take 1 tablet by mouth every six hours as needed for pain Tramadol 50 mg tablet Discontinued 50 mg PO EVERY 6 HOURS as needed for pain 6 2 0 September 17, 2022 3:47am October 05, 2024 3:50am Closed fracture of nasal bone Fracture of nasal bones, initial encounter for closed fracture Problems Active Problems Problem Classification Problem Date Documented Da te Episodic/Chronic Abdominal pain (12 sources) Abdominal pain; Translations: [Unspecified abdominal pain] Onset: 5 09-07-2022 Episodic Acute and unspecified renal failure (1 source) Acute renal failure syndrome; Translations: [Acute kidney failure, unspecified] 10-05-2024 Episodic Alcohol-related disorders (1 source) Alcohol abuse; Translations: [Alcohol abuse, uncomplicated] 2023 Chronic Alcohol-related disorders (3 sources) Alcohol intoxication; Translations: [Alcohol use, unspecified [...] Chronic Conditions associated with dizziness or vertigo (5 sources) Labyrinthine disorder; Translations: [Labyrinthine dysfunction, unspecified [...] 06-19-2017 Chronic Genitourinary symptoms and ill-defined conditions (1 source) Presence of urogenital implants; Translations: [Ureteral stent present] 10-05-2024 Chronic Genitourinary symptoms and ill-defined conditions (20 [...] Translations: [Tinea corporis] Episodic Nausea and vomiting (6 sources) Nausea and vomiting; Translations: [Nausea with [...] arteries] 05-22-2023 Chronic Open wounds of extremities (10 sources) Laceration of left forearm; Translations: [Laceration without foreign body of left forearm, initial encounter] Onset: 5 Episodic Open wounds of head; neck; and trunk (3 sources) Laceration of nose; Translations: [Laceration without [...] source) Taking high risk medication; Translations: [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] 01-08-2024 Episodic Other circulatory [...] with constipation] Onset: 3 12-15-2022 Chronic Other gastrointestinal disorders (20 sources) Diarrhea; Translations: [Diarrhea, unspecified] Onset: 1 11-25-2020 Episodic Other nervous system disorders (4 sources) Circadian [...] septum] 11-01-2022 Episodic Other upper respiratory infections (5 sources) Sinusitis; Translations: [Chronic sinusitis, unspecified] 11-30-2015 [...] 12-26-2022 Episodic Skin and subcutaneous tissue infections (8 sources) Cellulitis and abscess of lower limb; Translations: [Cellulitis of left lower limb] Episodic Skull and face fractures (4 sources) Closed fracture of nasal bones; Translations: [Fracture of nasal bones, initial encounter for closed fracture] 09-17-2022 Episodic Substance-related disorders (3 sources) Marijuana user; Translations: [Cannabis use, unspecified, uncomplicated] 12-26-2022 Episodic Superficial injury; contusion (3 sources) Contusion of back; Translations: [Contusion of unspecified back wall of thorax, initial encounter] 09-17-2022 Episodic Thyroid disorders (20 sources) Subclinical hypothyroidism; Translations: [Other specified hypothyroidism] Onset: 11-25-2020 Chronic Unclassified (1 source) APPOINTMENT CANCELLED 01-09-2023 Unclassified (1 source) NO SHOW 09-19-2023 Urinary tract infections (1 source) Acute pyelonephritis; Translations: [Acute pyelonephritis] 10-05-2024 Episodic Past or Other Problems Problem Classification Problem Date Documented Da te Episodic/Chronic Malaise and fatigue (20 sources) Fatigue; Translations: [Other fatigue] Onset: 06-20-2018 03-24-2021 Episodic Other aftercare (1 source) 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; Translations: [High risk medication use] Onset: 01-08-2024 Episodic Other and unspecified benign neoplasm (20 sources) History of polyp of colon; Translations: [Personal history of colonic polyps] Onset: 03-10-2016 03-10-2016 Episodic Other gastrointestinal disorders (20 sources) Esophageal [...] Test Name Value Interpretation Reference Range Facility Absolute lymphocyte countOrd ered By: Brett Marcus on 10-05-2024 Lymphocytes Auto (Unsp spec) [#/Vol] 1.06 10*3/uL 0.83-4.51 [facility] Absolute neutrophil countOrd ered By: Brett Marcus on 10-05-2024 Neutrophils (Bld) [#/Vol] 5.5 10*3/uL 2.0-7.7 [facility] Anion gap in Serum or Plasma Ordered By: Brett aMrcus on 10-05-2024 Anion gap [Moles/Vol] 11 mmol/L 5-15 [facility] Automated lymphocyte count a s percentage of total leukocytesOrdered By: Brett Marcus on 10-05-2024 Lymphocytes/100 WBC Auto (Unsp spec) 13.9 % Low 19-41 [facility] BUN/creatinine ratioOrdered By: Brett Marcus on 10-05-2024 Urea nitrogen/Creatinine [Mass ratio] 10.8 mg/mg 10-20 [facility] Basophil percentageOrdered B y: Brett Marcus on 10-05-2024 Basophils/100 WBC (Bld) 0.3 % 0-1 [facility] Bilirubin Test strip Ql (U)O rdered By: Brett Marcus on 10-05-2024 Bilirubin Ql (U) Negative Negative [facility] Carbon dioxide, total [Moles /volume] in Central venous bloodOrdered By: Brett Marcus on 10-05-2024 CO2 [Moles/Vol] 24.8 mmol/L 21.0-32.0 [facility] Chloride assayOrdered By: Kal Marcus on 10-05-2024 Chloride [Moles/Vol] 104 mmol/L 98-108 [facility] Eosinophil percentageOrdered By: Brett Marcus on 10-05-2024 Eosinophils/100 WBC (Bld) 2.9 % 0-5 [facility] Erythrocyte distribution wid th ratioOrdered By: Brett Marcus on 10-05-2024 Erythrocyte distribution width (RBC) [Ratio] 12.4 % 11.6-14.6 [facility] Erythrocyte distribution wid th standard deviationOrdered By: Brett Marcus on 10-05-2024 Erythrocyte distribution width (RBC) [Ratio] 42.0 fl 35.1-43.9 [facility] Glomerular filtration rate ( GFR) estimation/1.73 sq m using serum, plasma, or whole bOrdered By: Brett Marcus on 10-05-2024 GFR/1.73 sq M.predicted among non-blacks MDRD (S/P/Bld) [Vol rate/Area] 42 mL/min/{1.73_m2} Low >60 [facility] Comment on above: mL/min/1.73m2 CKD-EP I Creatinine Equation (2020) Hematocrit Auto (Bld) [Volum e fraction]Ordered By: Brett Marcus on 10-05-2024 Hematocrit (Bld) [Volume fraction] 34.2 % Low 40-54 [facility] Hemoglobin measurementOrdere d By: Brett Marcus on 10-05-2024 Hemoglobin (Bld) [Mass/Vol] 11.6 g/dL Low 13.0-16.5 [facility] Immature granulocytes/100 WB C Auto (Bld)Ordered By: Brett Marcus on 10-05-2024 Immature granulocytes/100 WBC (Bld) 0.400 % 0.0-0.9 [facility] Comment on above: IG% - Immature Granu locytes (promyelocytes, myelocytes and metamyelocytes) > 1% indicates that a LEFT SHIFT is Present. Ketones Test strip Ql (U)Ord ered By: Brett Marcus on 10-05-2024 Ketones Ql (U) Negative Negative [facility] MCV (mean corpuscular volume ) determinationOrdered By: Brett Mracus on 10-05-2024 MCV (RBC) [Entitic vol] 92.4 fL 80-94 [facility] Mean corpuscular hemoglobin (MCH) determinationOrdered By: Brett Marcus 10-05-2024 MCH (RBC) [Entitic mass] 31.4 pg 27.0-32.0 [facility] Mean corpuscular hemoglobin concentration (MCHC) determinationOrdered By: Brett Marcus 10-05-2024 MCHC (RBC) [Mass/Vol] 33.9 g/dL 32-36 [facility] Mean platelet volume determi nationOrdered By: Brett Marcus on 10-05-2024 Platelet mean volume (Bld) [Entitic vol] 9.7 fL 6.2-12.0 [facility] Microscopic analysis of urin e for red blood cells (RBC)Ordered By: Brett Marcus on 10-05-2024 Microscopic analysis of urine for red blood cells (RBC) 50-100 SEEN /hpf 0-5 [facility] Monocyte percentageOrdered B y: Brett Marcus on 10-05-2024 Monocytes/100 WBC (Bld) 11.0 % High 0-10 [facility] Mucus LM Ql (Urine sed)Order ed By: Brett Marcus on 10-05-2024 Mucus Ql (Urine sed) 0 SEEN /hpf [facility] Neutrophil percentageOrdered By: Brett Marcus on 10-05-2024 Neutrophils/100 WBC (Bld) 71.5 % High 47-70 [facility] Nitrite Test strip Ql (U)Ord ered By: Brett Marcus on 10-05-2024 Nitrite Ql (U) Negative Negative [facility] Nucleated red blood cell per centageOrdered By: Brett Marcus on 10-05-2024 Nucleated RBC/100 WBC (Bld) [Ratio] 0 % 0-5 [facility] Platelet countOrdered By: Kal Marcus on 10-05-2024 Platelets (Bld) [#/Vol] 112 10*3/uL Low 150-450 [facility] Potassium measurement (mass/ volume)Ordered By: Brett Marcus on 10-05-2024 Potassium (Unsp spec) [Mass/Vol] 3.9 mmol/L 3.3-5.1 [facility] Protein Test strip Ql (U)Ord ered By: Brett Marcus on 10-05-2024 Protein Ql (U) 100 mg/dl High Negative [facility] RBC Auto (Bld) [#/Vol]Ordere d By: Brett Marcus on 10-05-2024 RBC (Bld) [#/Vol] 3.70 10*6/uL Low 4.6-6.2 [facility] Serum creatinine measurement (mass/volume)Ordered By: Brett Marcus on 10-05-2024 Creatinine [Mass/Vol] 1.75 mg/dL High 0.70-1.20 [facility] Serum glucose measurement (m ass/volume)Ordered By: Brett Marcus on 10-05-2024 Glucose [Mass/Vol] 132 mg/dL High 70-[address] [facility] Serum or plasma calcium manuel urement (mass/volume)Ordered By: Brett Marcus on 10-05-2024 Calcium [Mass/Vol] 9.1 mg/dL 7.6-11.[address] [facility] Serum or plasma urea nitroge n measurement (mass/volume)Ordered By: Brett Marcus on 10-05-2024 Urea nitrogen [Mass/Vol] 19 mg/dL 4-19 [facility] Sodium levelOrdered By: Babak Marcus on 10-05-2024 Sodium [Moles/Vol] 140 mmol/L 133-[address] [facility] Squamous epithelial cells de tection in urine sediment by light microscopyOrdered By: Brett Marcus on 10-05-2024 Epithelial cells.squamous LM Ql (Urine sed) 0 SEEN /hpf 0-5 [facility] Urine clarityOrdered By: Jose Marcus on 10-05-2024 Clarity (U) Sl. Cloudy Clear [facility] Urine color determinationOrd ered By: Brett Marcus on 10-05-2024 Color (U) Straw Yellow [facility] Urine glucose detectionOrder ed By: Brett Marcus on 10-05-2024 Glucose Ql (U) Normal mg/dl Normal [facility] Urine leukocyte esterase det ection by dipstickOrdered By: Brett Marcus on 10-05-2024 Leukocyte esterase Test strip Ql (U) 500 /ul High Negative [facility] Urine pHOrdered By: Brett Marcus on 10-05-2024 pH (U) 6.5 [pH] 5.0 - 8.0 [facility] Urine sediment bacteria coun t by microscopy (number/high power field)Ordered By: Brett Marcus on 10-05-2024 Bacteria LM.HPF (Urine sed) [#/Area] RARE /hpf None Seen [facility] Urine specific gravity measu rementOrdered By: Brett Marcus on 10-05-2024 Specific gravity (U) [Rel density] 1.010 1.002-1.030 [facility] Urine urobilinogen measureme ntOrdered By: Brett Marcus on 10-05-2024 Urobilinogen Ql (U) Normal mg/dl Normal [facility] White blood cell (WBC) count Ordered By: Brett Marcus on 10-05-2024 WBC (Bld) [#/Vol] 7.6 10*3/uL 4.4-11.[address] [facility] White blood cell countOrdere d By: Brett Marcus on 10-05-2024 White blood cell count 5-10 SEEN /hpf 0-5 [facility] [id number] 10-01-2024 [id number] HNO ID: [id number] Author: TAD IZQUIERDO RN Service: ? Author Type: Registered Nurse Type: [id number] Filed: 10/01/2024 11:04 Note Text: How long [...] to flush out your bladder. Take an [id number] (OTC) pain reliever, such as nonsteroidal anti-inflammatory [...] strong-smelling or cloudy pee). A note from [facility] Symptoms like pain, blood in your pee [...] sense of the results. INFORMATION OBTAINED FROM [email or web address] [facility] ANES POSTPROC EVALon 025 ANES POSTPROC EVAL HNO ID: [id number] Author: SHARMIN CONDE DO Service: Anesthesiology Author Type: Anesthesiologist Type: Anesthesia Postprocedure Evaluation Filed: 10/01/2024 11:24 Note Text: POST ANESTHESIA EVALUATION NOTE : 1960 Procedure Summary Date: 10/01/24 Room / Location: OR / OR Anesthesia Start: 935 Anesthesia Stop: [...] October 01, 2024 TIME: 11:24 AM CSN: [id number] [facility] ANES PRE-OPon 10-01-2024 ANES PRE-OP HNO ID: [id number] Author: SHARMIN CONDE DO Service: Anesthesiology Author [...] as of this encounter: 181.6 cm (5' 11.5). Weight as of this encounter: 86.5 kg [...] depression, PTSD, lung nodule, AAA, thyroid disease, BBOBY-noncompliant with cpap, BPH, IBS, HLD, Factor 5 [...] NO MEDS PRIMARY MANAGES Abdominal aortic aneurysm DONTA MICHEL AND DR IBARRA AT [facility] Lung nodule MONITORED BY PRIMARY AND [place] Patient consumes caffeinated coffee DRINKS MUSHROOM COFFEE DAILY Enlarged prostate MILD, DR PRICE Hematuria DR PRICE PTSD (post-traumatic stress disorder) Surgical History Current as of 10/01/24 0754 CARPAL TUNNEL PAST SURGICAL HISTORY OF COLONOSCOPY [...] [R31.0] Pre-op diagnosis: Gross hematuria [R31.0] Location: OR 07 / OR Surgeons: Clemencia Price [...] Status: adequate Anesthetic plan additional comments: Vapes weed. [employer] Monitoring Plan Monitoring plan: standard [...] 53 10/01/24 (more content not included)... Normal [facility] HISTORY PHYSICALon HISTORY PHYSICAL HNO ID: [id number] Author: CLEMENCIA PRICE MD Service: Urology Author [...] cystoscopy and bilateral distal to mid ureteroscopy. [facility] OPERATIVE NOon 10-01-2024 OPERATIVE NO HNO ID: [id number] Author: CLEMENCIA PRICE MD Service: Urology Author Type: Physician Type: Operative Report Filed: 10/01/2024 10:11 Note Text: OPERATIVE/PROCEDURE REPORT LOG ID: [id number] SURGERY/PROCEDURE DATE: 10/01/2024 INCISION/PROCEDURE START TIME: 9:52 AM INCISION CLOSE/PROCEDURE END TIME: 10:04 AM SURGEON(S)/PROCEDURALIST(S ) AND OFFICE SERVICES REPRESENTATIVE(S): Surgeons and Role: * Clemencia Price MD [...] DATE: October 01, 2024 TIME: 10:07 AM [facility] CNCOon 09-27-2024 CNCO Letter Text [facility] CNPNon 09-17-2024 CNPN Telephone (URCANT) -- KACEY BENTLEY ([id number]) 1960 M Date Time Provider Department 09/17/24 [...] Encounter Status:Closed by CARLOS WHEELER on 09/17/24 [facility] 25(OH)D3 Idris 2024 25-hydroxyvitamin D3 [Mass/Vol] 44.7 ng/mL Normal 31.0-80.0 [facility] Comment on above: Order Comment: Speci men Type: BLOOD SPECIMENOrdering Facility: [facility] Address: [address] [place] [address] Result Comment: Clas sification of 25 OH Vitamin D status: Deficiency/Insufficiency: < or = 30 ng/ml. Sufficiency/Optimal Levels: 31-80 ng/mL Toxicity: > 100 ng/mL. Test performed by chemiluminescent immunoassay. Performed By: #### 1 989-3 ####[facility] LABIA [id number] [address] [place] CBC panel Auto (Bld)on 09-16 Erythrocyte distribution width (RBC) [Ratio] 12.4 % Normal 11.5-15.0 [facility] Comment on above: Order Comment: Speci men Type: BLOOD SPECIMENOrdering Facility: [facility] Address: [address] [place] [address] Performed By: #### 5 8410-2 ####[facility] LABIA [id number] [address] [place] Hematocrit (Bld) [Volume fraction] 40.8 % Normal 39.0-51.0 [facility] Comment on above: Order Comment: Speci men Type: BLOOD SPECIMENOrdering Facility: [facility] Address: [address] [place] [address] Performed By: #### 5 8410-2 ####[facility] LABIA [id number] [address], [facility] [place] Hemoglobin (Bld) [Mass/Vol] 13.4 g/dL Normal 13.0-17.0 [facility] Comment on above: Order Comment: Speci men Type: BLOOD SPECIMENOrdering Facility: [facility] Address: [address] [place] [address] Performed By: #### 5 8410-2 ####[facility] LABIA [id number] [address] [place] [address] [place] MCH (RBC) [Entitic mass] 31.3 pg Normal 26.0-34.0 [facility] Comment on above: Order Comment: Speci men Type: BLOOD SPECIMENOrdering Facility: [facility] Address: [address] [place] [address] Performed By: #### 5 8410-2 ####[facility] [id number] [place] [address] [place] MCHC (RBC) [Mass/Vol] 32.8 g/dL Normal 30.5-36.0 [facility] Comment on above: Order Comment: Speci men Type: BLOOD SPECIMENOrdering Facility: [facility] Address: [address] [place] [address] Performed By: #### 5 8410-2 ####[facility] [id number] [place] [address] [place] MCV (RBC) [Entitic vol] 95.3 fL Normal 80.0-100.0 [facility] Comment on above: Order Comment: Speci men Type: BLOOD SPECIMENOrdering Facility: [facility] Address: [address] [place] [address] Performed By: #### 5 8410-2 ####[facility] [id number] [place] [address] [place] Nucleated RBC (Bld) [#/Vol] 10*3/uL Normal <0.01 [facility] Comment on above: Order Comment: Speci men Type: BLOOD SPECIMENOrdering Facility: [facility] Address: [address] [place] [address] Performed By: #### 5 8410-2 ####[facility] [id number] [place] [address] [place] Platelet mean volume (Bld) [Entitic vol] 10.6 fL Normal 9.0-12.7 [facility] Comment on above: Order Comment: Speci men Type: BLOOD SPECIMENOrdering Facility: [facility] Address: [address] [place] [address] Performed By: #### 5 8410-2 ####[facility] LABIA [id number] [place] [address] [place] Platelets (Bld) [#/Vol] 158 10*3/uL Normal 150-400 [facility] Comment on above: Order Comment: Speci men Type: BLOOD SPECIMENOrdering Facility: [facility] Address: [address] [place] [address] Performed By: #### 5 8410-2 ####[facility] [id number] [place] [id number] [place] RBC (Bld) [#/Vol] 4.28 10*6/uL Normal 4.20-6.00 [facility] Comment on above: Order Comment: Speci men Type: BLOOD SPECIMENOrdering Facility: [facility] Address: [address] [place] [address] Performed By: #### 5 8410-2 ####[facility] [id number] [place] [address] [place] WBC (Bld) [#/Vol] 5.76 10*3/uL Normal 3.70-11.00 [facility] Comment on above: Order Comment: Speci men Type: BLOOD SPECIMENOrdering Facility: [facility] Address: [address] [place] [address] Performed By: #### 5 8410-2 ####[facility] [id number] [place] [id number] [facility] [place] CNOVon 09-16-2024 CNOV Office Visit (URCANT ) -- KACEY BENTLEY ([id number]) 1960 M Date Time Provider Department 09/16/24 10:30 AM CLEMENCIA PRICE URCANT During your visit today, we recorded the following information about you: Clemencia Price MD 09/16/2024 11:51 AM Signed [facility] [place] ESTABLISHED PATIENT OFFICE VISIT Patient presents with: [...] Visit complexit (more content not included)... Normal [facility] Comprehensive metabolic 2000 panelon 09-16-2024 Albumin [Mass/Vol] 4.3 g/dL Normal 3.9-4.9 [facility] Comment on above: Order Comment: Speci men Type: BLOOD SPECIMENOrdering Facility: [facility] Address: [address] [place] [address] Performed By: #### 2 4323-8, 37563-9, 305-0, 3027 ####[facility] LABIA [id number] [place] [address] [place] ALP [Catalytic activity/Vol] 53 U/L Normal 38-113 [facility] Comment on above: Order Comment: Speci men Type: BLOOD SPECIMENOrdering Facility: [facility] Address: [address] [place] [address] Performed By: #### 2 4323-8, 82069-3, 305-0, 3027 ####[facility] LABIA [id number] [address] [place] ALT [Catalytic activity/Vol] 14 U/L Normal 10-54 [facility] Comment on above: Order Comment: Speci men Type: BLOOD SPECIMENOrdering Facility: [facility] Address: [address] [place], [place] [address] Performed By: #### 2 4323-8, 54533-5, 3051-0, 3024-7 ####[facility] LABCLIA [id number] [address] [address] [place] Anion gap [Moles/Vol] 10 mmol/L Normal 8-15 [facility] Comment on above: Order Comment: Speci men Type: BLOOD SPECIMENOrdering Facility: [facility] Address: [address] [place], [place] [address] Performed By: #### 2 4323-8, 85770-0, 305-0, 302-7 ####[facility] LABCLIA [id number] [place] [id number] [place] AST [Catalytic activity/Vol] 19 U/L Normal 14-40 [facility] Comment on above: Order Comment: Speci men Type: BLOOD SPECIMENOrdering Facility: [facility] Address: [address] [place], [place] [address] Performed By: #### 2 4323-8, 09184-6, 305-0, 3027 ####[facility] LABCLIA [id number] [place] [id number] [place] Bilirubin [Mass/Vol] 0.6 mg/dL Normal 0.2-1.3 [facility] Comment on above: Order Comment: Speci men Type: BLOOD SPECIMENOrdering Facility: [facility] Address: [address] [place] [address] Performed By: #### 2 4323-8, 38238-9, 305-0, 302-7 ####[facility] LABCLIA [id number] [place] [id number] [place] Calcium [Mass/Vol] 9.3 mg/dL Normal 8.5-10.2 [facility] Comment on above: Order Comment: Speci men Type: BLOOD SPECIMENOrdering Facility: [facility] Address: [address] [place], [place] [address] Performed By: #### 2 4323-8, 96011-7, 305-0, 302-7 ####[facility] LABCLIA [id number] [address] [address] [place] Chloride [Moles/Vol] 101 mmol/L Normal 98-107 [facility] Comment on above: Order Comment: Speci men Type: BLOOD SPECIMENOrdering Facility: [facility] Address: [address] [place] [address] Performed By: #### 2 4323-8, 44794-2, 305-0, 302-7 ####[facility] LABCLIA [id number] [place] [id number] [place] CO2 [Moles/Vol] 25 mmol/L Normal 22-30 [facility] Comment on above: Order Comment: Speci men Type: BLOOD SPECIMENOrdering Facility: [facility] Address: [address] [place] [address] Performed By: #### 2 4323-8, 77158-5, 305-0, 3027 ####[facility] LABCLIA [id number] [place] [id number] [place] Creatinine [Mass/Vol] 1.05 mg/dL Normal 0.73-1.22 [facility] Comment on above: Order Comment: Speci men Type: BLOOD SPECIMENOrdering Facility: [facility] Address: [address] [place], [place] [address] Performed By: #### 2 4323-8, 70216-6, 305-0, 3027 ####[facility] LABCLIA [id number] [place] [id number] [place] eGFRcr SerPlBld CKD-EPI 2020 78 mL/min/1.73m??? Normal >=60 [facility] Comment on above: Order Comment: Speci men Type: BLOOD SPECIMENOrdering Facility: [facility] Address: [address] [place] [address] Result Comment: Rochelle mated Glomerular Filtration Rate [...] actual GFR. Performed By: #### 2 4323-8, 74652-2, 3051-0, 7 ####[facility] LABIA [id number] [place] [address] [place] Glucose [Mass/Vol] 159 mg/dL High 74-99 [facility] Comment on above: Order Comment: Zenaida solis Type: BLOOD SPECIMENOrdering Facility: [facility] Address: [address] [place] [place] [address] Result Comment: The [place] Diabetes Association (ADA) provides guidance for cutoff [...] Standards of Medical Care in Diabetes 2016, [place] Diabetes Association. Diabetes Care. 2016.39(Suppl 1). Performed By: #### 2 4323-8, 27983-5, 305-0, 7 ####[facility] LABIA [id number] [place] [id number] [place] Potassium [Moles/Vol] 4.6 mmol/L Normal 3.7-5.1 [facility] Comment on above: Order Comment: Zenaida solis Type: BLOOD SPECIMENOrdering Facility: [facility] Address: [address] [place], [place] [address] Performed By: #### 2 4323-8, 57167-1, 3051-0, 3027 ####[facility] LABIA [id number] [address] [address] [place] Protein [Mass/Vol] 6.5 g/dL Normal 6.3-8.0 [facility] Comment on above: Order Comment: Speci men Type: BLOOD SPECIMENOrdering Facility: [facility] Address: [address] [place] [address] Performed By: #### 2 4323-8, 18269-4, 305-0, 7 ####[facility] LABIA [id number] [address] [address] [place] Sodium [Moles/Vol] 136 mmol/L Normal 136-144 [facility] Comment on above: Order Comment: Speci men Type: BLOOD SPECIMENOrdering Facility: [facility] Address: [address] [place] [address] Performed By: #### 2 4323-8, 01000-3, 305-0, 7 ####[facility] LABIA [id number] [address] [address] [place] Urea nitrogen [Mass/Vol] 12 mg/dL Normal 9-24 [facility] Comment on above: Order Comment: Speci men Type: BLOOD SPECIMENOrdering Facility: [facility] Address: [address] [place], [place] [address] Performed By: #### 2 4323-8, 85934-5, 305-0, 3027 ####[facility] LABIA [id number] [address] [address] [place] Lipid 1996 panelon 5 Cholesterol [Mass/Vol] 167 mg/dL Normal <200 [facility] Comment on above: Order Comment: Speci men Type: BLOOD SPECIMENOrdering Facility: [facility] Address: [address] [place] [address] Result Comment: <200 mg/dL, Desirable 200-239 mg/dL, Borderline high >239 mg/dL, High Performed By: #### 2 4323-8, 46740-1, 305-0, 3023-08 ####[facility] LABCLIA [id number] [address] [address] [place] Cholesterol in HDL [Mass/Vol] 51 mg/dL Normal >39 [facility] Comment on above: Order Comment: Speci men Type: BLOOD SPECIMENOrdering Facility: [facility] Address: [address] [place] [address] Result Comment: 40-5 9 mg/dL, Acceptable >59 mg/dL, High: Negative risk factor for coronary heart disease <40 mg/dL, Low: Positive risk factor for coronary heart disease Performed By: #### 2 4323-8, 38153-4, 0, 3023-08 ####[facility] LABCLIA [id number] [address] [place] [address] [place] Cholesterol in LDL [Mass/Vol] 102 mg/dL High <100 [facility] Comment on above: Order Comment: Speci men Type: BLOOD SPECIMENOrdering Facility: [facility] Address: [address] [place] [address] Result Comment: <100 mg/dL, Optimal 100-129 mg/dL, Near optimal/above optimal 130-159 mg/dL, Borderline high 160-189 mg/dL, High >189 mg/dL, Very high Secondary prevention optimal LDL Cholesterol levels are recommended to be <70 mg/dL LDL cholesterol is calculated using the Vasquez-NIH equation. Performed By: #### 2 4323-8, 56500-1, 3050-0, 3023-08 ####[facility] LABCLIA [id number] [address] [place] [address] [place] Cholesterol in LDL/Cholesterol in HDL [Mass ratio] 2.00 {ratio} Normal <2.54 [facility] Comment on above: Order Comment: Speci men Type: BLOOD SPECIMENOrdering Facility: [facility] Address: [address] [place] [address] Result Comment: Abdoulaye suarez: 1. National Cholesterol Education Program ATP III Guideline At-A-Glance Quick Desk Reference: National Heart, Lung, and Blood [place]. National Institutes of Health. 2001: NIH Publication No. 01-3305. 2. An International Atherosclerosis Society position paper: global recommendations for the management of dyslipidemia: executive summary, Atherosclerosis. 2014: 232(2):410-413. Performed By: #### 2 4323-8, 59183-7, 3051-0, 3024-7 ####[facility] LABCLIA [id number] [place] [address] [place] Cholesterol in VLDL [Mass/Vol] 12 mg/dL Normal <30 [facility] Comment on above: Order Comment: Speci men Type: BLOOD SPECIMENOrdering Facility: [facility] Address: [address] [place] [address] Performed By: #### 2 4323-8, 33011-4, 3051-0, 3024-7 ####[facility] LABIA [id number] [place] [address] [place] Cholesterol non HDL [Mass/Vol] 116 mg/dL Normal <130 [facility] Comment on above: Order Comment: Speci men Type: BLOOD SPECIMENOrdering Facility: [facility] Address: [address] [place] [address] Result Comment: <130 mg/dL, Optimal 130-159 mg/dL, Near optimal/above optimal 160-189 mg/dL, Borderline high 190-219 mg/dL, High >219 mg/dL, Very high Secondary prevention optimal non HDL Cholesterol levels are recommended to be <100 mg/dL Performed By: #### 2 4323-8, 08381-4, 3051-0, 3024-7 ####[facility] LABCLIA [id number] [address] [place] [address] [place] Cholesterol.total/Chol esterol in HDL [Mass ratio] 3.27 {ratio} Normal <5.10 [facility] Comment on above: Order Comment: Speci men Type: BLOOD SPECIMENOrdering Facility: [facility] Address: [address] [place] [address] Performed By: #### 2 4323-8, 37349-0, 3051-0, 3024-7 ####[facility] LABCLIA [id number] [address] [address] [place] FASTING TIME 12 hrs Normal [facility] Comment on above: Order Comment: Speci men Type: BLOOD SPECIMENOrdering Facility: [facility] Address: [address] [place] [address] Performed By: #### 2 4323-8, 59632-1, 3051-0, 3024-7 ####[facility] LABIA [id number] [address] [address] [place] Triglyceride [Mass/Vol] 73 mg/dL Normal <150 [facility] Comment on above: Order Comment: Speci men Type: BLOOD SPECIMENOrdering Facility: [facility] Address: [address] [place] [address] Result Comment: <150 mg/dL, Normal 150-199 mg/dL, Borderline high 200-499 mg/dL, High >499 mg/dL, Very high Performed By: #### 2 4323-8, 24490-0, 3051-0, 3024-7 ####[facility] LABIA [id number] [address] [address] [place] PSA/PROSTATE SPECIFIC ANTIGE N SCREENINGon 09-16-2024 Prostate specific Ag [Mass/Vol] 0.06 ng/mL Normal <2.60 [facility] Comment on above: Order Comment: Speci men Type: BLOOD SPECIMENOrdering Facility: [facility] Address: [address] [place] [address] Result Comment: Tota l PSA test methodology used is the Electrochemiluminescence Immunoassay by [employer]. Total PSA values by differing methodologies cannot be interchanged. Performed By: #### P SAS1 ####[facility] LABCLIA [id number] [place] [id number] [place] T3Free SerPl-mCncon 09-17-19 25 Free T3 [Mass/Vol] 2.7 pg/mL Normal 2.3-4.1 [facility] Comment on above: Order Comment: Speci men Type: BLOOD SPECIMENOrdering Facility: [facility] Address: [address] [place] [address] Performed By: #### 2 4323-8, 09932-0, 3051-0, 3024-7 ####[facility] LABIA [id number] [place] [address] [place] T4 Free SerPl-mCncon 025 Free T4 [Mass/Vol] 0.8 ng/dL Low 0.9-1.7 [facility] Comment on above: Order Comment: Speci men Type: BLOOD SPECIMENOrdering Facility: [facility] Address: [address] [place] [address] Performed By: #### 2 4323-8, 94931-0, 3051-0, 3024-7 ####[facility] LABIA [id number] [place] [id number] [place] TSH SerPl-aCncon 09-16-2024 TSH Qn 2.600 m[IU]/L Normal 0.270-4.200 [facility] Comment on above: Order Comment: Speci men Type: BLOOD SPECIMENOrdering Facility: [facility] Address: [address] [place] [address] Performed By: #### 3 016-3 ####[facility] LABIA [id number] [place] [id number] [place] UA DIP, URINE (POC)on 2024 BILIRUBIN UA (POCT) Negative Negative [facility] CLARITY UA (POCT) Clear [facility] COLOR UA (POCT) Yellow [facility] GLUCOSE UA (POCT) Negative Negative mg/dL [facility] Hemoglobin Ql (U) Negative Negative [facility] KETONE UA (POCT) Negative Negative mg/dL [facility] LEUKOCYTES UA (POCT) Negative Negative [facility] NITRITE UA (POCT) Negative Negative [facility] PH UA (POCT) 7.5 4.5 - 8.0 [facility] Protein Ql (U) Negative Negative mg/dL [facility] SPECIFIC GRAVITY UA (POCT) 1.015 1.005 - 1.030 [facility] UROBILINOGEN UA (POCT) 0.2 Constance l E.U./dL [facility] Location:[facility], [address] [place] [address], [address] [place] [address] POINT OF CARE [facility] -- KACEY BENTLEY ([id number]) 1960 M Date Time Provider Department 09/13/24 CLEMENCIA PRICE During your visit today, we recorded the following information about you: Zulya Medina 09/13/2024 9:51 AM Signed Clemencia Price MD [facility] Pt is scheduled for cysto but I want to see pt next week to better plan his procedure and meet. Previous Messages ----- Message ----- From: Glo Molina Sent: 09/11/2024 3:47 PM EDT To: Clemencia Price MD Subject: Case [id number] Scheduled: Patient * You are receiving this message because you are assigned as the primary surgeon for this case. Your surgery request has been scheduled on 10/01/2024 in OR . Please access Case [id number] by clicking on the blue case link in the Case Information above to enter in day of surgery orders and any other documentation that is needed for the case. You will need to forward to another caregiver to complete the work (like a resident or BUNCHER MACHINE/PA) if you have additional team members assisting [...] Encounter Status:Closed by ZULAY MEDINA on 09/13/24 [facility] [place] 09-06-2024 [facility] Telephone (URCANT) -- KACEY BENTLEY ([id number]) 1960 [place] Date Time Provider Department 09/06/24 CLEMENCIA PRICE During your visit today, we recorded the following information about you: Allergies As of Date: 09/06/2024 (No Known Allergies) Date Reviewed: 09/03/2024 Reviewed by: Za Arechiga, RT(R) - Fully Assessed Primary Visit Diagnosis:Gross hematuria [R31.0] Order(s):SURGICAL REQUEST - ELECTIVE (09/2019) [[id number]] Order #: [id number]: 1 Prescriptions as of 09/06/2024 - FLUoxetine [...] Encounter Status:Closed by CLEMENCIA PRICE on 09/06/24 [facility] [place] 09-05-2024 [facility] Telephone (URCANT) -- KACEY BENTLEY ([id number]) 1960 M Date Time Provider Department 09/05/24 [...] for a cystoscopy with Dr Ordonez in [place] on 09/10/24. She said that her has to have the cystoscopy under anesthesia; she said that he flails/is unable to be still. Since the procedure of 09/10/[address] Ordonez was scheduled in the office, the appointment has been canceled. Patient sees Clarisse Cee in [place]. Please call spouse to assist/arrange procedure so that it accommodates patient's special needs. [place] 09/06/2024 8:46 AM Signed How to proceed? [...] under general anesthesia with on 10/01/2024 CASE# [id number] Pt is aware of prep and arrival instructions given verbally 09/10. Pt states they are on aspirn. [employer] message sent 09/13. Post Op 10/22/2024 at 12:00 in the [place] office [place] 09/20/2024 9:09 AM Signed Clemencia Price MD [facility], Marryssa Anne On day of OR, cysto, add L use diagnostic dont need laser Sent case message to add code [id number] (cysto USE diagnostic only no laser needed) [place] 09/30/2024 11:12 AM Signed Called to confirm surgery and pt confirmed date and procedure. 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 Reminded no NSAIDS and NPO. Pt confirmed he stopped his Asprin last week. [place] 10/02/2024 9:[address] Price's bubble chat: set up 2 week follow up for cysto and stent removal, if needed maribell Urias Patient is on 10/14. Patient states he is having a lot of pain and discomfort on his left side. States he is nauseous, woke up in a sweat, going between hot and cold. He is aware to go to the ER if pain is not tolerable or he spikes a fever. [place] 10/02/2024 4:23 PM Signed Called and made pt aware and he voiced understanding. He states he is feeling better. [place] Allergies As of Date: 09/05/2024 (No Known [...] [K58.0] 03/24/2021 (more content not included)... Normal [facility] CT UROGRAM WO/W IVCONon 07-1 CT UROGRAM WO/W IVCON * * *Final Report* * * DATE OF EXAM: Sep 04 2024 3:42PM [facility] 0560 - CT UROGRAM WO/W IVCON / [...] levels. 4. 3 cm abdominal aortic aneurysm. 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[facility] Transcribe Date/Time: Sep 10 2024 8:20A Dictated by : MOISES SANTANA MD This examination was interpreted and the report reviewed and electronically signed by: MOISES SANTANA MD on Sep 10 2024 8:44AM EST [id number] Normal [facility] Creatinine and Glomerular fi ltration rate.predicted panel (S/P/Bld)on 09-04-2024 Creatinine [Mass/Vol] 1.27 mg/dL High 0.73-1.22 [facility] Comment on above: Order Comment: Speci men Type: BLOOD SPECIMENOrdering Facility: [facility] Address: [address] [place] [address] Performed By: #### 4 5066-8 ####[facility] ORANGENCLIA [id number] [place] [address] [place] eGFRcr SerPlBld CKD-EPI 2020 62 mL/min/1.73m??? Normal >=60 [facility] Comment on above: Order Comment: Speci men Type: BLOOD SPECIMENOrdering Facility: [facility] Address: [address] [place] [address] Result Comment: Rochelle mated Glomerular Filtration Rate [...] actual GFR. Performed By: #### 4 5066-8 ####[facility] DORALWNCLIA [id number] [address] [place] Meseret 09-03-2024 FRANCISCO Telephone (FELIPE) -- KACEY BENTLEY ([id number]) 1960 M Date Time Provider Department 09/03/24 CLARISSE CEE During your visit today, we recorded the following information about you: Patricia Clifton PSS 09/03/2024 10:[address] order for creatinine order for pt , pt appt on 09/04/[address] Za Colón LPN 09/03/2024 3:40 PM Signed Called patient. Verified name and date of . Patient aware of order and will check in for CT Urogram as scheduled. Za Colón LPN Allergies As of Date: 09/03/2024 (No Known Allergies) Date Reviewed: 09/03/2024 Reviewed by: Za Arechiga, RT(R) - Fully Assessed Reason for Visit: Orders [681] Primary Visit Diagnosis:Gross hematuria [R31.0] Order(s):CREATININE BLD [SQCRET] Order #: [id number] FUTURE Prescriptions as of 09/03/2024 - FLUoxetine [...] Status:Closed by ZA COLÓN on 09/03/24 Normal [facility] CYTOLOGY NON-GYNOrdered By: Kt Quintanilla on 08-22-2024 Case Report Medical Cytology Rep ort Case: [id number] Authorizing Provider: Clarisse Cee PA-C Collected: 08/20/2024 09:14 AM Ordering Location: Urology Received: 08/20/2024 04:51 PM Pathologist: Kt Quintanilla MD Specimen: Urine, Midstream [facility] Work Phone: Clinical History h5aznUGpMYFxq2uiNVIx bGFuZz QhAyQlQiKxLdt9LJXhjkL6Xus6 BPAdOKxxbK5iYXYmARgtG2givg XsaYFyRSLtNUw0bZ1usAlahI9x ObOzBmGgDFVAtj2lhoPCQG6ivL VyaWFccGFyIH0= [facility] Work Phone: Disclaimer u0fomAMaAITdy8moOWJr bGFuZz EwMzNcZnRuYmpcdWMxIHtccnRm CHnzhEqaJZUwXKZxh5adg4apvL SuNIQas6ylj2VksFQvwTKjWCzz jTJjarKmxa72tIP6yI20CP3gBM QxTtB2DPSbbdB1Dfm4FCPtOOHr oRGwB174x7dcz7gvziIjoWK3BF MfMFZgY6FlLG9kZUTcsNItI36n hCZiIVD6QHAxXPYjkTIlTPTkBB S6NRUbnLFnO8moUWZuGU1xgtmc VXumAPwsDCFdtIZ0QWFzeZHiM5 BuZXQcAQsvJTWefed3QqJkJh6s kROyvIjfVMzuK8jamV2iAgB8IU lzX7qhzD5nTYq7FSvwFWGgqOR9 sdM5MBBilZAuV8UxeP3jSRHyZE 7roje1o5pbLBG8IFitRLFqKwW5 piJ8KDTooXUrROwbwFSzgxfcJD GiFOKcR5NnIFwpUo3sOKIvqstw JNB3HFytyAAoTHXio6MyYDdUHP jbTVxfW3dtzH9ljedpcICiAQUg YIOaPJKMICWly3ZpLP1yXMGcfV XbYAT1RFPyy5XxP7Hjp5HjkC5q sE6cuKphuI7wmQMawMNeaWzawS 5olN7vMvj3t5Bjk9CwqpRcTFJa IKNdmUShtU7wDM5kVhNxol3dsC H9XIb3GaXsCAq3ZOFum96tcFZl qVBknYE2XOBoNRMrXAEjfCQviI rgKTDlUwpxjLzdEHUozzThiw0k csrjzXAvd6PxpC0tcEX8dYSsqF 7iO1fuwyWoRH6oVIIarU1cJwpa YHSfFvPuhBKFRiEUw18rsBHmKE DrsChgvQ4xtDFdhdRwYAPud9Xe zN3tfNODSZShZ4ggJZAMVSDywl VpDN81QFzYCCgaSCQubZI6gbBD e7DbbHUxbPjbQEyya51wH5YhCQ RrjNUPh5XxaVGwjRcdArnrwejh UQHLJAJ9y87bWY7daOe5DEowVT 2oksA6VIuxw7CbuEXuOVKKrzOj DO5yFbd9MMEuHEQoeZYomVDZIH 32FPGlNH5dngIwhsGJQYYtrEhj Xz2rpOqqEC8zvGe4IAobIA5yGL ZdcL0wNEjwl6DxpHQuUOUrysXu QM8olt9oseYbk49jsUO9OO35FP yufBodS2rFDNAxENC6hYZhkQWl jZXtKV8hYXNggaFfw2TrNC7gIX ZhTLYjAEXyc8JiXB0wyYHyf3Ru vCX4GINnXDBgIPPvPYNdONDid3 MoKNUjcf22EVIvWhzptNynBALK UO4wYjTkJPyLKVojLVLnB7KuGO GqBYO9seAvzpZNGCdIFVSaYTB2 CNqwYkhwQOT7ncVhAFWpz9KfHC wuM5lkE22qqQdeaMw7pRH2LMQ0 sU5hFuDAoLQqXIQ5DJJ9dyTuis HimTJdZWOfe7RrX8xjtdhoIFji yMMfkJ8sVGZjCHOaNESyFFKqt5 ArUJRym3EwUvKcpfGhXAToXDAz KVEjqF11YXU6uHgznDyjtzGhME 7eBJIuylDwFFWcVSAadB2yFN8j lHBogtPfYG6cEF5pZ9P9aSEmOR NoygPcz8sjRYG9STqfUYTuaLFy yHBdDJKtcXkwTPHenp92 [facility] Work Phone: FINAL DIAGNOSIS h6qakMJbFSPtzSNpGkBz MDAwXG Tny1qdCVTooIYeRxJkHrTsXpZn CaoviWEfHDRtPxBss2qeo116xQ Lqv3knVCLdTrW8cHXbBUDsmLNo Y313HLZcQVnrl6spf2AfABQmbK Rax1B7ISBIkurmxPk8oOsnQ76o f0P2PaduE8vmPWDfUQGhI1KkWV 4lBGEzStv0IHZ7OAQ1NCTaIQKe X2NvNK5iKXAcaDZtCPxcmgSeYO kuriWuzxVhYjf6WNE9JHQ0uJwx x0B0iZYnaTEtuBklVzMrRgTxQc IId0BcECe0xSugX4YbHVCxJyP8 dFIfSBYgBTgiPZAnKPJqhfJ6iO 85XFmwqoG3bUBjq0Pvv25le980 oL5rpAXkVMT0FQLlUVLicMXpNT ItJZD3EGSjuNJoR9o7FhGsbAAb M4B2FyLzrNAbU9M7ZrGpbKHmR4 J0KhYcsMMsPPAqoVdyPWpys730 UBN0IfDkTU5tH7Vvx0Z7zQ6hbL MqCHMxvNOaTsOgVOXvjz6ntIPi TDeml2AbSUI0gvG3aBYnsLLcNK EmHR99Avysu2CgNyhsNMC9OIZi xhGrm9Can8xvTuLnhvOwK8enH8 CsCWQrOGXfDIHfIySpuzVez2Yj e6VwhKZytWd7u2xcJWJlULSlnN ety3ofJLL5CEXyW0Q7rVLeo9za AKueTFJdjYT8buitLLqkOAWray A3obueOFpuAYFgrOH6pesvTIxd KSOlStB0dvtrAUrqCBGvPSZ7Yy EbJOQvn3Hbfzm2HjQww1PgsVMh HSjyR35lr095OSXudaEeO5mrsK QqxlulnSIjagfkSUiexpM4CMRs XHBsYWluXGYxXGZzMjJcbGFuZz EwMzNcaGljaFxmMVxkYmNoXGYx IKawI4gnOjPzL7OqBJSdMgQwGp UKAX3qPWHlecNgIA4aALC8taRv bSAgIFxwYXIgICAgICAgICAgIE 6cL3H8eZSbRIGucvDdtKuqQNnx DMYoVKLai9YlXHnfDKayG5VkZ5 vlc66eKlweUTKoWHWgLIIfYPNj YCkkSRGpSXWsQIUqeEkebN6wSi KrXnAhZfsqKH0pXEVjJ1wwvMHb ZMYhVVCrF5nuWmJrwG3tbSsnSF xmczIyXGJccGFyXHBhcmRccGxh sY1sEbWiVuIiESpiuVMkymkpTB uufzNlSWnymuucXQFlYHvrH2wh LsGoXSRfxRwuWLbqo7EcPVZpOS AuHvFeOvm8QTVfUTGuBGIiKEEf llgusFlssHNdiqsdOZibsiJ3GL BsYWluXGYxXGZzMjJcbGFuZzEw MzNcaGljaFxmMVxkYmNoXGYxXG ufV1feAnZfIgHmEtfdSOGfooqt YXJkXHBsYWluXGYwXGZzMjRccG wkvW7gBmTsHsNaVysaGD4zLWWj I2ubhGRrWOVbEWVpD6bpHhOrgA 9jaFxmMVxjZjNcZnMyMlxiIFxw IEInbVfceX1uFxNeRhKpVgmfVN 1yGODnH7firQKgJDDwJOWuQ4fq XlLqoD2orZcwWAuuqyKuYPHuoz 0= [facility] Work Phone: Gross Description l6gfyIXfTDXjuWZKRTZe MDNcYW 0afDkusSh7nWktQGGujhH4xHHt JMloq0enLPX5j4zehgPQHimjAX AaBT9uXQisKBXpYL8lBtPgTCHo ZmYxXHBhcGVydzEyMjQwXHBhcG ShtHU3PVUjKP2jebxzSTdaTAgr TRStplO5TTWcpCHcP1GbZAQsII 7hlugvKJZ8TEPLNuozMq9pbPDg bHtcZjFcZmNoYXJzZXQwXGZzd2 ceqeYQiltuzCj2rB5KSSPrU7Hg WD0Vo9dxNZQusGTiLGE5YCaat1 kgJBhlYYY1OCKxCOYfULKbKD9V CrPiGEp4GAC6VvNzQvW7PJe1OI NAYJYlIUPlUnGtKZHfBUc3EVzl XFxuaCBcXHQgMSBcXGZsIFxcbm N2v6zpMREunZGsEQQ5HBaan5ud VHjeIRV6ZGYyUoKeAVLwJU5ZWz IfGDp1GVN7MfFlFdN0WOi2MKSF HwGiEwOsWjS5AqDwJKUxWCx6KN k1BVvGXyKgDlY6BrDlHAE6KdK4 EMT3ZHFmLSEkNdDzSDElYOBoUQ zsgDSbXJ9vzFplUAWiEP2YKLWk SJrvEIHmOkFlOA7iGPWugcOeRG 5jJTF8duHttAvlsHXxbJsiyoYs OIJtgqZGOhbhKOJcJP5ZHUScQB ciBJd1boQiSLOiPpFxCOFcB62f a4CTq3WsGD4RPAy4ccQuejAKUz igI7FpFSDwg0KsQ2E6SCMoFYzz k6vwQDDbVFifa8McLDqXQEJZRP 1ZQL2wlJV1TGfKKOLPK3vKlCW4 ITsuOEornVM0v6vqgJBfx1x5ZO egESR6uZCvYQWsm9tlaFRiXOre LinwhGVppzJ8USfKNAGJGPeJAv SeEP4aPDtNV4CWQmU1KZAkWfH4 lEN6HG27ELVhABJnxERcGWzgZ3 57BYXiICgrRRl5seQdTIFjFgTn TWapsi28ROS5t6zhjRQrWOjrIr hcwUYigtP7SZgMGEDVCTiEPbJs TV2aCYnQZ9DEPSnGBparSUP3SH T0WkwrbNclZjjfpdJikHLfPyZG bC5geOqpmY0iUFBtM5GXWLYvLC b1yaPwILKvWrY6QOXyEHiru8js EJDhUJdmk1WqEBmMXMUUNU6ICJ 1bmBC4H8iZDEELU0qViNX0r8nq kXPxg3a8IEdqHWE4gYikfRKvwx R2WOvda2u4JNLuVYuei3trHMKm OXvxs1SkSBaSSJSTLC5ULF2hxP W3M6qUSJWXKMdzcMppYxxqztAz zZNpQfACgQ6jlOrjfK4skGKwV6 hccHJvdGVjdFxmczIyXHBsYWlu XGVwaWNTTFAwIFxsdHJjaFxwcm 58YHW6FKIfTnO5RVPcUNtui9ie FGMyXKewi3ZfAVlQJOZDDV2YMB 4hnRB0NGsKWMAOZQdyPLM5LAN2 MnwyfXtcZmxkcnNsdCBcJzFDfX 2izTktgX8rvZIyB6woKeAcCvBy IHUzw7YtH2C2EKRsGIoen3sbDR RkQNhmw2QjCDwLEUDEXU3YMU3c aNZ2QRgMGPBYC6lJxLB4XGvzBW f3jDG9c5czhSEiy7o6XRsjLVJ9 qAJhfVaua4vpjNMrKRkpBbwpeQ QlktY0HQxUUNVLTUyRExEdRL7k PIgVP1OFUvI2SVNbYuK6uCI5LU 49KCImTPXbbWNjODupF762LWSr KVmaVIs7spOsTRRtSdSoOG7aBQ gwin86JBK0m2bpjERvBMerDadg iIXgzkV9BRdTHJAMKPjYFmGlSQ 1wIBjPI9CTJCsYSxddHOOkCye4 DCx2oWwpVfreugJrrSCxIaNLeE 6AoVbuBURiqGqkJxiiuXE0NLgu ZaefqI5zlPZPQPRUYsvFQrzrzw CeOC8GDYCJWP1PqWC1FWO6E2r5 qXM2d5leeAEei4r8UJaeKFZ7lU xwbGFpblxsdHJjaFxmczIyICBw weCyGDSqMB6paFOfHA3LECWxXs QrVRBcI7ukRFMnKK7IKMWgCQyn jnAeLZPfT39gy0JRr5Zcv9yqzT fmx9ErgOWmEU58AEIqmOEfPBM3 GU3ggMfqHVCyPKkdnFYcYLWJAn xwbGFpbiANCn0= [facility] Work Phone: Performing Lab k4evqNVtSMShu7nbDUMd bGFuZz EwMzNcZnRuYmpcdWMxIHtccnRm MVxhbnNpXGRlZmxhbmcxMDMzXG A7lwSgHYCiOVN0JXS3ApAfCOWp AqLdCXA2CWXrg6fgd8DfbGJqwY IpJAczoGIixiWewn60kUK8cS44 VB0tMIQyVxX8YGXwarN8Juv3NZ KiLYVjeALcD262n6tvg7gfahVq kBD7iLixFBDlbohtNuZ0YOtaPJ BzxkieFTy2EWwbCCViuQF9UGDw vGWtJ1AgCOEnNF9yizj0SZK8YW ehQJFvBjR3PIMirWZgWSBvtNuo HWtww296QJW8RsUoIFAak3C4eh PcRgEqXIAnsEI4htU8YONbHY3b lwrkg8saDCikJSmgHGEtalQ9gg C7KNBjkQMbF6WfrZ9qXFGcUR1z tvpjy0inPOD4IQxaXLQqLESbQY lgOTZfEpCeHPQgrD5fX5MxBZDf lUYjbdKvfUbgV7i6y8PyG3fbe5 okO2owyHCtX3RsDE9kijrzsTQu Mg4tbOXmBKJ8YdYUiQC7ZIahhp NgR9wsjcbnAR3txQ2kT1QkfEEq MXmyc7PlsKYbATbxIz3vJLSisc lnMRs4WXVySBSikJhpKCR7IW42 ZSwgRGVzayBMMjEsIENsZXZlbG OhEABLDRC6NMR5HUOiB7pMRUiw EiAFCPB8MzW6XGsrJBE5tQxotf XiFXvumHolDKGaHXDtVR2fzNwu gSt7cQcpDIMgosU9oZNcNQuvc9 swKUI1a9gjygwpBJSbJKxgHg5y fQLnuFyaVkJmEFZuBZu6cB92GT PeuX4nuBHyVIm7UOGidDSgrgPu YnAdSUQxeOSqvCO4GJUmRB4bbe liVKmxREgmQGSlmgI0WUFjoVZw J5BvPLMgNQ6rjzsqYUQ4CTbtTI SjWCS4ItZrXTVey5Yrvhg5TmOi mGn3l6nhXOCnZVYjmYsca1xjSC P8IZCuqIZbX9yohX1mWVTcFG1o vthhc4vbIExrRMfrBBVuqJG6rk M8DFHapAIpV6CxyV2zXLHjMFQf vhQywXvcgY8sVdCuXVVCiUKsii 0ydPxsSBkdjCFeaXZsnLZ8rL6b TLNejuSwmi4iTOCjrRgnN8hcxq EoRL4nIJQomN3bOfFRLCulXVGe zZU3xmCIr8UobONbiNYXULJoaw M9t3R0ATQ8ZMEzXTM5N3ipVCCA glLyeFBnTJSjv3btNBPzUSNZkZ S3GTdpswZnX5hcYQJbKWRyIAUG CHrQVxHvKgWaZrZ4CFe1SPKvpn UmhQJtMCwrYx9mWGDbqfwrOUwr TAC9u8L0VCcdhBBrfuGYNN7dtU NrcywgTURccGFyfX0= [facility] Work Phone: [facility] Work Phone: BACTERIAL CULTURE, URINEOrde red By: Anjel Orta on 08-21-2024 Bacteria identified Cx Nom (U) No growth (<1,000 CFU/ml) [facility] Bacteria identified Cx Nom ( U)Ordered By: Anjel Orta on 08-21-2024 Interpretation and review of laboratory results Normal [facility] Bacteria Ur Culton Bacteria identified Cx Nom (U) CULTURE, URINE: No growth (<1,000 CFU/ml) Normal [facility] Comment on above: Performed By: #### 6 30-4 ####[facility] LABCLIA [id number] [address] [place] CNOVon 08-20-2024 CNOV Office Visit (UROLWS ) -- KACEY BENTLEY ([id number]) 1960 M Date Time Provider Department 08/20/24 [...] Clarisse Beasley PA-C 08/26/2024 9:45 AM Signed [facility] NEW PATIENT CLINIC NOTE (M) Note was generated by [employer] and edited as appropriate SERVICE DATE: [...] and sudden urgency. - Admits to being usually dehydrated. LABS: PSA (ng/mL) Date Value 07/31/2019 0.20 [...] Maternal Grandfat (more content not included)... Normal [facility] CYTOLOGY NON-GYNon 5 AP DISCLAIMER Normal [facility] Comment on above: Order Comment: Speci men Type: URINE SPECIMENOrdering Facility: [facility] Address: [address] [place] [address] Result Comment: Jorge flores Developed Test (LDT) Disclaimer: Performance characteristics of immunohistochemical, immunofluorescent, and chromogenic in-situ hybridization tests have been determined by the performing laboratory within [facility]'s [facility] Pathology and Laboratory Medicine Department ([facility], [facility], [facility], [facility], [facility], [facility], or [facility]) in a manner consistent with CLIA requirements. One or more of these tests may not have been cleared or approved by the FDA. [facility] is regulated under CLIA as qualified to perform high-complexity testing. These tests are used for clinical purposes. These should not be regarded as investigational or for research. Positive and negative controls stain appropriately. Performed By: #### C YTONON ####[facility] LABCLIA [id number] [address] [address] [place] CASE REPORT Normal [facility] Comment on above: Order Comment: Speci men Type: URINE SPECIMENOrdering Facility: [facility] Address: [address] [place] [address] Result Comment: [facility] Cytology Report Case: [id number] Authorizing Provider: Clarisse Cee PA-C Collected: 08/20/2024 09:14 AM Ordering Location: Urology Received: 08/20/2024 04:51 PM Pathologist: Kt Quintanilla MD Specimen: Urine, Midstream Performed By: #### C YTONON ####[facility] LABCLIA [id number] [address] [address] [place] CLINICAL HISTORY Gross Hematuria Normal [facility] Comment on above: Order Comment: Speci men Type: URINE SPECIMENOrdering Facility: [facility] Address: [address] [place] [address] Performed By: #### C YTONON ####[facility] LABCLIA [id number] [place] [address] [place] FINAL DIAGNOSIS Normal [facility] Comment on above: Order Comment: Speci men Type: URINE SPECIMENOrdering Facility: [facility] Address: [address] [place] [address] Result Comment: A - Urine, Midstream Negative for high-grade urothelial carcinoma. at 0751 EDT Performed By: #### C YTONON ####[facility] LABCLIA [id number] [address] [address] [place] FINAL PERFORMING LAB Normal [facility] Comment on above: Order Comment: Speci men Type: URINE SPECIMENOrdering Facility: [facility] Address: [address] [place] [address] Result Comment: Tech nical component, auto painter helper screening performed at: [facility], [address] [place] [address] CLIA: [id number] Diagnostic interpretation performed at: [facility], [address] [place] [address] CLIA# [id number] Grinder Hand: Jacky Hess MD Performed By: #### C YTONON ####[facility] LABCLIA [id number] [place] [address] [place] GROSS DESCRIPTION Normal [facility] Comment on above: Order Comment: Speci men Type: URINE SPECIMENOrdering Facility: [facility] Address: [address] [place] [address] Result Comment: A. U rine, Midstream 9 cc clear mcmullen yellow fluid . ThinPrep prepared. Performed By: #### C YTONON ####[facility] LABCLIA [id number] [place] [address] [place] UA DIP, URINE (POC)on 2024 BILIRUBIN UA (POCT) Negative Negative [facility] CLARITY UA (POCT) Slightly Cloudy Cl [facility] COLOR UA (POCT) Yellow [facility] GLUCOSE UA (POCT) Negative Negative mg/dL [facility] Hemoglobin Ql (U) Trace-intact Abnormal Negative [facility] Interpretation and review of laboratory results Abnormal [facility] KETONE UA (POCT) Negative Negative mg/dL [facility] LEUKOCYTES UA (POCT) Negative Negative [facility] NITRITE UA (POCT) Negative Negative [facility] PH UA (POCT) 5.5 4.5 - 8.0 [facility] Protein Ql (U) Negative Negative mg/dL [facility] SPECIFIC GRAVITY UA (POCT) >=1.030 1.005 - 1.030 [facility] UROBILINOGEN UA (POCT) 0.2 Constance l E.U./dL [facility] Location:[facility], [address] , [place], [place], [id number] [place] [address] POINT OF CARE [facility] CNPNon 08-19-2024 CNPN Telephone (UROLWS) -- MCKACEY ([id number]) 1960 M Date Time Provider Department 08/19/24 CLARISSE CEE During your visit today, we recorded the following information about you: Za Colón LPN 08/19/2024 4:32 PM Signed Faxed [facility] on 08/18/2024. RUBEN Perez Kimberly, LPN 08/19/2024 4:32 PM Signed [facility] notified of request for records to be pushed. Za Colón LPN Allergies As of Date: 08/19/2024 (No Known Allergies) Date Reviewed: 08/12/2024 Reviewed by: Sushant Colmenares APRN.STREET LIGHT REPAIRER HELPER - Fully Assessed Reason for Visit: Request Outside Medical Records [[id number]] Prescriptions as of 08/21/2024 - iv contrast [...] Status:Closed by ZA COLÓN on 08/21/24 Normal [facility] Urine Cultureon 08-19-2024 URC Culture exhibits no growth. Normal [facility] Comment on above: Performed By: #### M 100.2200 #### [facility] [address] [place], [place], [address] Abdomen/Pelvis without Conto n 08-18-2024 Abdomen/Pelvis without Cont [facility] [address] [place], [place] [address] Abdomen/Pelvis without Cont MR#: [id number] Acct: [id number] Name: KACEY BENTLEY Rep #: [id number] : 1960 M 64 From: Faraz Grant MD PCP: Dr. Jules Haynes, Status: REG ER Study: Abdomen/Pelvis without Cont Date of Exam: 07/22 11/14 Exam# [id number] Ordering Dr: Annie Jones PROCEDURE: ABDOMEN/PELVIS WITHOUT [...] IMPRESSION: No acute abdominopelvic findings. Reading Location: [place] [address] CC: Dr. Jules Haynes DO; ADITYA Verma 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: Signed Normal [facility] Absolute lymphocyte countOrd ered By: Annie Jones on 08-18-2024 Lymphocytes Auto (Unsp spec) [#/Vol] 1.80 10*3/uL 0.83-4.51 [facility] Absolute neutrophil countOrd ered By: Annie Jones on 08-18-2024 Neutrophils (Bld) [#/Vol] 6.6 10*3/uL 2.0-7.7 [facility] Anion gap in Serum or Plasma Ordered By: Annie Jones on 08-18-2024 Anion gap [Moles/Vol] 12 mmol/L 5- [facility] Automated lymphocyte count a s percentage of total leukocytesOrdered By: Annie Jones on 08-18-2024 Lymphocytes/100 WBC Auto (Unsp spec) 19.3 % -41 [facility] BUN/creatinine ratioOrdered By: Annie Jones on 08-18-2024 Urea nitrogen/Creatinine [Mass ratio] 13.3 mg/mg 10- [facility] Basic Metabolic Profile (BMP )on 08-18-2024 BUN/CRE 13.3 RATIO Normal - [facility] Comment on above: Performed By: #### L 100.0100, L500.2500 #### [facility] [address] [place], [address] Calcium [Mass/Vol] 9.9 mg/dL Normal 7.6-11.[address] [facility] Comment on above: Performed By: #### L 100.0100, L500.2500 #### [facility] [address] [place], [address] Chloride [Moles/Vol] 102 mmol/L Normal 98-108 [facility] Comment on above: Performed By: #### L 100.0100, L500.2500 #### [facility] [address] [place], [address] CO2 [Moles/Vol] 25.7 mmol/L Normal 21.0-32.0 [facility] Comment on above: Performed By: #### L 100.0100, L500.2500 #### [facility] [address] [place], [address] Creatinine [Mass/Vol] 1.30 mg/dL High 0.70-1.20 [facility] Comment on above: Performed By: #### L 100.0100, L500.2500 #### [facility] [address] [place], [address] ECRCL 59.53 ml/min Normal 50-250 [facility] Comment on above: Performed By: #### L 100.0100, L500.2500 #### [facility] [address] [place], [address] GAP 12 Normal 5-15 [facility] Comment on above: Performed By: #### L 100.0100, L500.2500 #### [facility] [address] [place], [address] GFR/1.73 sq M.predicted among non-blacks MDRD (S/P/Bld) [Vol rate/Area] 61 mL/min/{1.73_m2} Normal >60 [facility] Comment on above: Result Comment: mL/m in/1.73m2 CKD-EPI Creatinine Equation (2020) Performed By: #### L 100.0100, L500.2500 #### [facility] [address] [place], [address] Glucose [Mass/Vol] 104 mg/dL High 70-[address] [facility] Comment on above: Performed By: #### L 100.0100, L500.2500 #### [facility] [address] [place], [address] Potassium [Moles/Vol] 4.0 mmol/L Normal 3.3-5.1 [facility] Comment on above: Performed By: #### L 100.0100, L500.2500 #### [facility] [address] [place], [address] Sodium [Moles/Vol] 140 mmol/L Normal 133-[address] [facility] Comment on above: Performed By: #### L 100.0100, L500.2500 #### [facility] [address] [place], [address] Urea nitrogen [Mass/Vol] 17 mg/dL Normal 4-19 [facility] Comment on above: Performed By: #### L 100.0100, L500.2500 #### [facility] [address] [place], [address] Basophil percentageOrdered B y: Annie Jones on 08-18-2024 Basophils/100 WBC (Bld) 0.4 % 0-1 [facility] Bilirubin Test strip Ql (U)O rdered By: Annie Jones on 08-18-2024 Bilirubin Ql (U) Negative Negative [facility] CBC W/Diff, Automatedon - Absolute Lymph 1.80 X10 3/uL Normal 0.83-4.51 [facility] Comment on above: Performed By: #### L 100.0100, L500.2500 #### [facility] [address] [place], [address] Absolute Neut 6.6 X10 3/uL Normal 2.0-7.7 [facility] Comment on above: Performed By: #### L 100.0100, L500.2500 #### [facility] [address] [place], [address] Basophils/100 WBC (Bld) 0.4 % Normal 0-1 [facility] Comment on above: Performed By: #### L 100.0100, L500.2500 #### [facility] [address] [place], [address] Eosinophils/100 WBC (Bld) 1.4 % Normal 0-5 [facility] Comment on above: Performed By: #### L 100.0100, L500.2500 #### [facility] [address] [place], [address] Erythrocyte distribution width (RBC) [Ratio] 11.8 % Normal 11.6-14.6 [facility] Comment on above: Performed By: #### L 100.0100, L500.2500 #### [facility] [address] [place], [address] Hematocrit (Bld) [Volume fraction] 39.9 % Low 40-54 [facility] Comment on above: Performed By: #### L 100.0100, L500.2500 #### [facility] [address] [place], [address] Hemoglobin (Bld) [Mass/Vol] 13.9 g/dL Normal 13.0-16.5 [facility] Comment on above: Performed By: #### L 100.0100, L500.2500 #### [facility] [address] [place], [address] IG% 0.200 Normal 0.0-0.9 [facility] Comment on above: Result Comment: IG% - Immature Granulocytes (promyelocytes, myelocytes and metamyelocytes) > 1% indicates that a LEFT SHIFT is Present. Performed By: #### L 100.0100, L500.2500 #### [facility] [address] [place], [address] Lymphocytes/100 WBC (Bld) 19.3 % Normal 19-41 [facility] Comment on above: Performed By: #### L 100.0100, L500.2500 #### [facility] [address] [place], [address] MCH (RBC) [Entitic mass] 32.0 pg Normal 27.0-32.0 [facility] Comment on above: Performed By: #### L 100.0100, L500.2500 #### [facility] [address] [place], [address] MCHC (RBC) [Mass/Vol] 34.8 g/dL Normal 32-36 [facility] Comment on above: Performed By: #### L 100.0100, L500.2500 #### [facility] [address] [place], [address] MCV (RBC) [Entitic vol] 91.7 fL Normal 80-94 [facility] Comment on above: Performed By: #### L 100.0100, L500.2500 #### [facility] [address] [place], [address] Monocytes/100 WBC (Bld) 7.7 % Normal 0-10 [facility] Comment on above: Performed By: #### L 100.0100, L500.2500 #### [facility] [address] [place], [address] Neutrophils/100 WBC (Bld) 71.0 % High 47-70 [facility] Comment on above: Performed By: #### L 100.0100, L500.2500 #### [facility] [address] [place], [address] Nucleated RBC (Bld) [#/Vol] 0 10*3/uL Normal 0-5 [facility] Comment on above: Performed By: #### L 100.0100, L500.2500 #### [facility] [address] [place], [address] Platelet mean volume (Bld) [Entitic vol] 10.1 fL Normal 6.2-12.0 [facility] Comment on above: Performed By: #### L 100.0100, L500.2500 #### [facility] [address] [place], [address] Platelets (Bld) [#/Vol] 178 10*3/uL Normal 150-450 [facility] Comment on above: Performed By: #### L 100.0100, L500.2500 #### [facility] [address] [place], [address] RBC (Bld) [#/Vol] 4.35 10*6/uL Low 4.6-6.2 [facility] Comment on above: Performed By: #### L 100.0100, L500.2500 #### [facility] [address] [place], [address] RDW SD 40.1 fl Normal 35.1-43.9 [facility] Comment on above: Performed By: #### L 100.0100, L500.2500 #### [facility] [address] [place], [address] WBC (Bld) [#/Vol] 9.4 10*3/uL Normal 4.4-11.[address] [facility] Comment on above: Performed By: #### L 100.0100, L500.2500 #### [facility] [address] [place], [address] Carbon dioxide, total [Moles /volume] in Central venous bloodOrdered By: Annie Jones on 08-18-2024 CO2 [Moles/Vol] 25.7 mmol/L 21.0-32.0 [facility] Chloride assayOrdered By: Laura Jones on 08-18-2024 Chloride [Moles/Vol] 102 mmol/L 98-108 [facility] Emergency Department Summary on 08-18-2024 Emergency Department Summary [facility] Medical Records Department [address] [place] [address] Emergency Department Summary 08/18/24 MR#: [id number] Acct: [id number] Name: KACEY BENTLEY Rep #: [id number] : 1960 64 From: Annie BURGESS PCP: [...] AAA they are monitoring. No abdominal surgeries. [facility] Medical History BPH (benign prostatic hyperplasia) CPAP [...] very minimally (more content not included)... Normal [facility] Eosinophil percentageOrdered By: Annie Jones on 08-18-2024 Eosinophils/100 WBC (Bld) 1.4 % 0-5 [facility] Erythrocyte distribution wid th ratioOrdered By: Annie Jones on 08-18-2024 Erythrocyte distribution width (RBC) [Ratio] 11.8 % 11.6-14.6 [facility] Erythrocyte distribution wid th standard deviationOrdered By: Annie Jones on 08-18-2024 Erythrocyte distribution width (RBC) [Ratio] 40.1 fl 35.1-43.9 [facility] Glomerular filtration rate ( GFR) estimation/1.73 sq m using serum, plasma, or whole bOrdered By: Annie Jones on 08-18-2024 GFR/1.73 sq M.predicted among non-blacks MDRD (S/P/Bld) [Vol rate/Area] 61 mL/min/{1.73_m2} >60 [facility] Comment on above: mL/min/1.73m2 CKD-EP I Creatinine Equation (2020) Hematocrit Auto (Bld) [Volum e fraction]Ordered By: Annie Jones on 08-18-2024 Hematocrit (Bld) [Volume fraction] 39.9 % Low 40-54 [facility] Hemoglobin measurementOrdere d By: Annie Jones on 08-18-2024 Hemoglobin (Bld) [Mass/Vol] 13.9 g/dL 13.0-16.5 [facility] Immature granulocytes/100 WB C Auto (Bld)Ordered By: Annie Jones on 08-18-2024 Immature granulocytes/100 WBC (Bld) 0.200 % 0.0-0.9 [facility] Comment on above: IG% - Immature Granu locytes (promyelocytes, myelocytes and metamyelocytes) > 1% indicates that a LEFT SHIFT is Present. Ketones Test strip Ql (U)Ord ered By: Annie Jones on 08-18-2024 Ketones Ql (U) 5 mg/dl High Negative [facility] MCV (mean corpuscular volume ) determinationOrdered By: Annie Jones on 08-18-2024 MCV (RBC) [Entitic vol] 91.7 fL 80-94 [facility] Mean corpuscular hemoglobin (MCH) determinationOrdered By: Annie Jones on 08-18-2024 MCH (RBC) [Entitic mass] 32.0 pg 27.0-32.0 [facility] Mean corpuscular hemoglobin concentration (MCHC) determinationOrdered By: Annie Jones on 08-18-2024 MCHC (RBC) [Mass/Vol] 34.8 g/dL 32-36 [facility] Mean platelet volume determi nationOrdered By: Annie Jones on 08-18-2024 Platelet mean volume (Bld) [Entitic vol] 10.1 fL 6.2-12.0 [facility] Microscopic analysis of urin e for red blood cells (RBC)Ordered By: Annie Jones on 08-18-2024 Microscopic analysis of urine for red blood cells (RBC) > 100 SEEN /hpf 0-5 [facility] Comment on above: Microscopic field is filled. Other elements may be obscured. Monocyte percentageOrdered B y: Annie Jones on 08-18-2024 Monocytes/100 WBC (Bld) 7.7 % 0-10 [facility] Mucus LM Ql (Urine sed)Order ed By: Annie Jones on 08-18-2024 Mucus Ql (Urine sed) 1+ /hpf [facility] Neutrophil percentageOrdered By: Annie Jones on 08-18-2024 Neutrophils/100 WBC (Bld) 71.0 % High 47-70 [facility] Nitrite Test strip Ql (U)Ord ered By: Annie Jones on 08-18-2024 Nitrite Ql (U) Negative Negative [facility] Nucleated red blood cell per centageOrdered By: Annie Jones on 08-18-2024 Nucleated RBC/100 WBC (Bld) [Ratio] 0 % 0-5 [facility] Platelet countOrdered By: Laura Jones on 08-18-2024 Platelets (Bld) [#/Vol] 178 10*3/uL 150-450 [facility] Potassium measurement (mass/ volume)Ordered By: Annie Jones on 08-18-2024 Potassium (Unsp spec) [Mass/Vol] 4.0 mmol/L 3.3-5.1 [facility] Protein Test strip Ql (U)Ord ered By: Annie Jones on 08-18-2024 Protein Ql (U) 500 mg/dl High Negative [facility] RBC Auto (Bld) [#/Vol]Ordere d By: Annie Jones on 08-18-2024 RBC (Bld) [#/Vol] 4.35 10*6/uL Low 4.6-6.2 [facility] Serum creatinine measurement (mass/volume)Ordered By: Annie Jones on 08-18-2024 Creatinine [Mass/Vol] 1.30 mg/dL High 0.70-1.20 [facility] Serum glucose measurement (m ass/volume)Ordered By: Annie Jones on 08-18-2024 Glucose [Mass/Vol] 104 mg/dL High 70-[address] [facility] Serum or plasma calcium manuel urement (mass/volume)Ordered By: Annie Jones on 08-18-2024 Calcium [Mass/Vol] 9.9 mg/dL 7.6-11.[address] [facility] Serum or plasma urea nitroge n measurement (mass/volume)Ordered By: Annie Jones on 08-18-2024 Urea nitrogen [Mass/Vol] 17 mg/dL 4-19 [facility] Sodium levelOrdered By: Annie Jones on 08-18-2024 Sodium [Moles/Vol] 140 mmol/L 133-[address] [facility] Squamous epithelial cells de tection in urine sediment by light microscopyOrdered By: Annie Jones on 08-18-2024 Epithelial cells.squamous LM Ql (Urine sed) 0-5 SEEN /hpf 0-5 [facility] Urinalysis, Completeon 08-18 BACTERIA RARE Normal None Seen [facility] Comment on above: Order Comment: COLOR OF URINE MAY AFFECT DIPSTICK RESULTS. CLEAN CATCH Performed By: #### L 400.0001 #### [facility] [address] [place], [address] Mucus Ql (Urine sed) 1+ /hpf Normal [facility] Comment on above: Order Comment: COLOR OF URINE MAY AFFECT DIPSTICK RESULTS. CLEAN CATCH Performed By: #### L 400.0001 #### [facility] [address] [place], [address] EPI,SQUAMOUS 0-5 SEEN Normal 0-5 [facility] Comment on above: Order Comment: COLOR OF URINE MAY AFFECT DIPSTICK RESULTS. CLEAN CATCH Performed By: #### L 400.0001 #### [facility] [address] [place], [address] RBC > 100 SEEN Normal 0-5 [facility] Comment on above: Order Comment: COLOR OF URINE MAY AFFECT DIPSTICK RESULTS. CLEAN CATCH Result Comment: Micr oscopic field is filled. Other elements may be obscured. Performed By: #### L 400.0001 #### [facility] [address] [place], [address] WBC 10-25 SEEN Normal 0-5 [facility] Comment on above: Order Comment: COLOR OF URINE MAY AFFECT DIPSTICK RESULTS. CLEAN CATCH Performed By: #### L 400.0001 #### [facility] [address] [place], [address] Clarity (U) Cloudy Normal Clear [facility] Comment on above: Order Comment: COLOR OF URINE MAY AFFECT DIPSTICK RESULTS. CLEAN CATCH Performed By: #### L 400.0001 #### [facility] [address] [place], [address] Color (U) Brown Normal Yellow [facility] Comment on above: Order Comment: COLOR OF URINE MAY AFFECT DIPSTICK RESULTS. CLEAN CATCH Performed By: #### L 400.0001 #### [facility] [address] [place], [address] BILIRUBIN URINE Negative Normal Negative [facility] Comment on above: Order Comment: COLOR OF URINE MAY AFFECT DIPSTICK RESULTS. CLEAN CATCH Performed By: #### L 400.0001 #### [facility] [address] [place], [address] GLUCOSE, UR Normal Normal Normal [facility] Comment on above: Order Comment: COLOR OF URINE MAY AFFECT DIPSTICK RESULTS. CLEAN CATCH Performed By: #### L 400.0001 #### [facility] [address] [place] [id number] KETONE UR 5 mg/dl Abnormal Negative [facility] Comment on above: Order Comment: COLOR OF URINE MAY AFFECT DIPSTICK RESULTS. CLEAN CATCH Performed By: #### L 400.0001 #### [facility] [address] [place] [address] LEUK ESTERASE 25 /ul Abnormal Negative [facility] Comment on above: Order Comment: COLOR OF URINE MAY AFFECT DIPSTICK RESULTS. CLEAN CATCH Performed By: #### L 400.0001 #### [facility] [address] [place] [address] Nitrite Ql (U) Negative Normal Negative [facility] Comment on above: Order Comment: COLOR OF URINE MAY AFFECT DIPSTICK RESULTS. CLEAN CATCH Performed By: #### L 400.0001 #### [facility] [place] [address] OCCULT BLOOD-UR 250 /ul Abnormal Negative [facility] Comment on above: Order Comment: COLOR OF URINE MAY AFFECT DIPSTICK RESULTS. CLEAN CATCH Performed By: #### L 400.0001 #### [facility] [address] [place] [address] pH UR 6.5 Normal 5.0 - 8.0 [facility] Comment on above: Order Comment: COLOR OF URINE MAY AFFECT DIPSTICK RESULTS. CLEAN CATCH Performed By: #### L 400.0001 #### [facility] [address] [place] [address] PROT DIPSTX 500 mg/dl Abnormal Negative [facility] Comment on above: Order Comment: COLOR OF URINE MAY AFFECT DIPSTICK RESULTS. CLEAN CATCH Performed By: #### L 400.0001 #### [facility] [address] [place], [address] SP.GR. DIPSTX 1.020 Normal 1.002-1.030 [facility] Comment on above: Order Comment: COLOR OF URINE MAY AFFECT DIPSTICK RESULTS. CLEAN CATCH Performed By: #### L 400.0001 #### [facility] [address] [place], [address] UROBILI 1 mg/dl Abnormal Normal [facility] Comment on above: Order Comment: COLOR OF URINE MAY AFFECT DIPSTICK RESULTS. CLEAN CATCH Performed By: #### L 400.0001 #### [facility] [address] [place], [address] Urine clarityOrdered By: Barbara Jones on 08-18-2024 Clarity (U) Cloudy Clear [facility] Urine color determinationOrd ered By: Annie Jones on 08-18-2024 Color (U) Brown Yellow [facility] Urine cultureOrdered By: Brittni Sifuentes on 08-18-2024 Bacteria identified Cx Nom (U) Culture exhibits no growth. [facility] Urine glucose detectionOrder ed By: Annie Jones on 08-18-2024 Glucose Ql (U) Normal mg/dl Normal [facility] Urine leukocyte esterase det ection by dipstickOrdered By: Annie Jones on 08-18-2024 Leukocyte esterase Test strip Ql (U) 25 /ul High Negative [facility] Urine pHOrdered By: Annie islas on 08-18-2024 pH (U) 6.5 [pH] 5.0 - 8.0 [facility] Urine sediment bacteria coun t by microscopy (number/high power field)Ordered By: Annie Jones on 08-18-2024 Bacteria LM.HPF (Urine sed) [#/Area] RARE /hpf None Seen [facility] Urine specific gravity measu rementOrdered By: Annie Jones on 08-18-2024 Specific gravity (U) [Rel density] 1.020 1.002-1.030 [facility] Urine urobilinogen measureme ntOrdered By: Annie Jones on 08-18-2024 Urobilinogen Ql (U) 1 mg/dl High Normal [facility] White blood cell (WBC) count Ordered By: Anniehiro Jones on 08-18-2024 WBC (Bld) [#/Vol] 9.4 10*3/uL 4.4-11.[address] [facility] White blood cell countOrdere d By: Annie Jones on 08-18-2024 White blood cell count 10-25 SEEN /hpf 0-5 [facility] CNOVon 08-12-2024 CNOV Office Visit (SLEWST ) -- KACEY BENTLEY ([id number]) 1960 M Date Time Provider Department 08/12/24 1:30 PM SUSHANT COLMENARES During your visit today, we recorded the following information about you: Pulse Respiration Blood pressure Weight 98/minute 16/minute 94/64 84.4 kg Sushant Colmenares APRN.CNP 08/12/2024 4:55 PM Signed [facility] Follow up/ Established patient visit Recording using ambient Intellinote software for draft documentation of the visit was discussed with the patient/authorized territory account representative; all questions welcomed and answered. 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 [...] ng/mL <40 (more content not included)... Normal [facility] CNOVon 08-04-2024 CNOV Office Visit (WALKWA ) -- KACEY BENTLEY ([id number]) 1960 M Date Time Provider Department 08/04/24 2:15 PM KENJI MARR During your visit today, we recorded the following information about you: Pulse Respiration Blood pressure Weight 70/minute 16/minute 137/78 85.7 kg Kenji Marr PA-C 08/04/2024 2:47 PM Signed This note was created using [employer]. Subjective Kacey Bentley is a 64 year old male. Patient is a 64-year-old male who arrives for evaluation of redness and swelling to his left hand secondary to a dog bite injury that he sustained yesterday evening. Patient reports that he was at home trying to separate his 2 dogs while they were fighting when his [place] Ang quickly bit his radial left hand. [...] is current and that all of his [place] Ang's immunizations are also current. Patient has [...] the left index finger secondary to pain. 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 Neurological: General: [...] Fully Assessed Reason for Visit: Dog Bite [89226] Cmt: Was bite by dog. Refill Request [...] Take 1 (more content not included)... Normal [facility] 04-08-2024 [facility] Telephone (FAMWS) -- KACEY BENTLEY ([id number]) 1960 M Date Time Provider Department 04/08/24 [facility] During your visit today, we recorded the following information about you: Hanh Daley, EQUIPMENT OPERATOR WAREHOUSE 04/08/2024 2:30 PM Signed Copied from phone encounter. Good morning. Jose Ramon hurt his shoulder muscle and we have tried advil and Tylenol but it does t work as well as my prescription of ibuprofen 800mg I had. Could he please have a prescription sent to [facility] in [place]. Thank you. Jonathan. Jules Haynes DO 04/09/2024 [...] Encounter Status:Closed by RAND VILLEGAS on 04/09/24 [facility] CNOVon 03-25-2024 CNOV Office Visit (FAMPWS ) -- KACEY BENTLEY ([id number]) 1960 [place] Date Time Provider Department 03/25/24 8:20 AM JULES HAYNESPWS During your visit today, we recorded the following information about you: Temperature Pulse Respiration Blood pressure 97.6 degrees 76/minute 16/minute 124/80 Weight 90.3 kg HaynesJules hernandes, DO 03/25/2024 9:52 AM Signed CC: Kacey Bentley is a 63 year old male who presents to the office for follow up HPI: Long standing issues with BOBBY/CPAP use and chronic insomnia, as well as his cardiac history. 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 Need for job coverage for these concerns. Sleep is being managed by Neurologist 4. 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 Need for job coverage for these concerns. Sleep is being managed by Neurologist 5. 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 Need for (more content not included)... Normal [facility] CNPNon 03-25-2024 [facility] KACEY BENTLEY ([id number]) 1960 Date Time Provider Department 03/25/24 JULES HAYNES [facility] During your visit today, we recorded the [...] by CARLOS RIZVI LPN on 04/16/24 Normal [facility] BENZO CONFIRM, URINEon 01-07 7-Aminoclonazepam Confirm (U) [Mass/Vol] 481 ng/mL High <40 [facility] Comment on above: Order Comment: Speci men Type: URINE SPECIMENOrdering Facility: [facility] Address: [address] [place] [address] Result Comment: 7-Am blanca-clonazepam is the primary metabolite of clonazepam (Klonopin). Presence of 0-Xhwlr-vwbtolwovq indicates use of clonazepam-containing drugs. Performed By: #### B ENZOCFMU ####[facility] LABIA [id number] [address] [place] Alpha hydroxyalprazolam Confirm (U) [Mass/Vol] <60 Normal <60 [facility] Comment on above: Order Comment: Speci men Type: URINE SPECIMENOrdering Facility: [facility] Address: [address] [place] [address] Result Comment: Alph a-hydroxyalprazolam is the primary metabolite of alprazolam (Xanax). Presence of alpha-hydroxyalprazolam indicates use of alprazolam-containing drugs. Performed By: #### B ENZOCFMU ####[facility] LABIA [id number] [place] [address] [place] Alpha hydroxytriazolam Confirm (U) [Mass/Vol] <40 Normal <40 [facility] Comment on above: Order Comment: Speci men Type: URINE SPECIMENOrdering Facility: [facility] Address: [address] [place] [address] Result Comment: Alph a-hydroxytriazolam is the primary metabolite of triazolam (Halcion). Presence of alpha-hydroxytriazolam indicates use of triazolam-containing drugs. Performed By: #### B ENZOCFMU ####[facility] LABCLIA [id number] [place] [address] [place] BENZO CONFIRM, NOTE Normal [facility] Comment on above: Order Comment: Speci men Type: URINE SPECIMENOrdering Facility: [facility] Address: [address] [place] [address] Result Comment: This test is for medical use only. This test was developed, and its performance characteristics determined by the [facility] Department of Pathology and Laboratory Medicine. It has not been cleared or approved by the FDA. The [facility] Department of Pathology and Laboratory Medicine is regulated under CLIA as qualified to perform high-complexity testing. This test is used for clinical purposes. It should not be regarded as investigational or for research. Performed By: #### B ENZOCFMU ####[facility] LABCLIA [id number] [place] [address] [place] LORazepam Confirm (U) [Mass/Vol] <40 Normal <40 [facility] Comment on above: Order Comment: Speci men Type: URINE SPECIMENOrdering Facility: [facility] Address: [address] [place] [address] Result Comment: Pres ence of lorazepam indicates use of lorazepam-containing drugs. Performed By: #### B ENZOCFMU ####[facility] LABCLIA [id number] [address] [place] Nordiazepam Confirm (U) [Mass/Vol] <40 Normal <40 [facility] Comment on above: Order Comment: Speci men Type: URINE SPECIMENOrdering Facility: [facility] Address: [address] [place] [address] Result Comment: [place] iazepam may arise from nordiazepam-containing drugs or by metabolism of many benzodiazepines including Medazepam (Nobrium), Clorazepate (Tranxene), Halazepam (Paxipam), Prazepam (Centrax), Chlordiazepoxide (Librium), Pinazepam (Domar), and Diazepam (Valium). Nordiazepam is metabolized to oxazepam. Performed By: #### B ENZOCFMU ####[facility] [id number] [place] [address] [place] Oxazepam [Mass/Vol] <40 Normal <40 [facility] Comment on above: Order Comment: Speci men Type: URINE SPECIMENOrdering Facility: [facility] Address: [address] [place] [address] Result Comment: Oxaz epam may arise from oxazepam-containing drugs or by metabolism from many benzodiazepines including Medazepam (Nobrium), Clorazepate (Tranxene), Halazepam (Paxipam), Prazepam (Centrax), Chlordiazepoxide (Librium), Pinazepam (Domar), and Diazepam (Valium). Performed By: #### B ENZOCFMU ####[facility] [id number] [place] [address] [place] Temazepam Confirm (U) [Mass/Vol] <40 Normal <40 [facility] Comment on above: Order Comment: Speci men Type: URINE SPECIMENOrdering Facility: [facility] Address: [address] [place] [address] Result Comment: Renny zepam may arise from temazepam-containing drugs or by metabolism from many benzodiazepines including Medazepam (Nobrium), Clorazepate (Tranxene), Halazepam (Paxipam), Prazepam (Centrax), Chlordiazepoxide (Librium), Pinazepam (Domar), and Diazepam (Valium). Temazepam is metabolized to oxazepam. Performed By: #### B ENZOCFMU ####[facility] LABERNESTO [id number] [place] [id number] [place] CNOVon 01-08-2024 CNOV Office Visit (SLEWST ) -- KACEY BENTLEY ([id number]) 1960 M Date Time Provider Department 01/08/24 10:40 AM JORGE REDDY JR SLEWSJv During your visit today, we recorded the [...] Saul Colmenares CNP in 4 weeks in [place]. At that time will need UDS and [...] Date V (more content not included)... Normal [facility] SPECIMEN VALIDITY, URINEon 1 03-09-2023 CHROMATE,URINE <10 Normal <50 [facility] [facility] Comment on above: Order Comment: Speci men Type: URINE SPECIMENOrdering Facility: [facility] Address: [address] [place] [address] Performed By: #### L [id number] ####[facility] LABCLIA [id number] [place] [address] [place] CREATININE,URINE 239.9 mg/dL Normal 20.0-300.0 [facility] Comment on above: Order Comment: Speci men Type: URINE SPECIMENOrdering Facility: [facility] Address: [address] [place] [address] Performed By: #### L [id number] ####[facility] LABCLIA [id number] [place] [address] [place] NITRITES,URINE 55 mg/L Normal <500 [facility] Comment on above: Order Comment: Speci men Type: URINE SPECIMENOrdering Facility: [facility] Address: [address] [place] [address] Performed By: #### L [id number] ####[facility] LABCLIA [id number] [place] [address] [place] OXIDANTS,URINE 52 mg/L Normal <200 [facility] Comment on above: Order Comment: Speci men Type: URINE SPECIMENOrdering Facility: [facility] Address: [address] [place] [address] Performed By: #### L [id number] ####[facility] LABCLIA [id number] [place] [address] [place] pH (U) 6.0 [pH] Normal 4.5-8.0 [facility] Comment on above: Order Comment: Speci men Type: URINE SPECIMENOrdering Facility: [facility] Address: [address] [place] [address] Performed By: #### L [id number] ####[facility] LABCLIA [id number] [place] [address] [place] SPEC GRAVITY,UR 1.027 Normal 1.003-1.035 [facility] Comment on above: Order Comment: Speci men Type: URINE SPECIMENOrdering Facility: [facility] Address: [address] [place] [address] Performed By: #### L [id number] ####[facility] LABCLIA [id number] [place] [address] [place] SPECIMEN VALIDITY QUALITY Specimen quality results within acceptable limits Normal [facility] Comment on above: Order Comment: Speci men Type: URINE SPECIMENOrdering Facility: [facility] Address: [address] [place] [address] Performed By: #### L [id number] ####[facility] LABCLIA [id number] [place] [address] [place] TOXICOLOGY SCREEN, ROUTINE U RINEon 01-08-2024 Amphetamines Confirm (U) [Mass/Vol] Negative Negative [facility] Comment on above: Cutoff threshold at 1000 ng/mL. Barbiturates Urine Negative Negative [facility] Comment on above: Cutoff threshold at 200 ng/mL. Benzodiazepines Urine Positive Abnormal Negative [facility] Comment on above: Cutoff threshold at 200 ng/mL. Cannabinoids Screen Ql (U) Positive Abnormal Negative [facility] Comment on above: Cutoff threshold at 50 ng/mL. Cocaine Ql (U) Negative Negative [facility] Comment on above: Cutoff threshold at 300 ng/mL. Ethanol (U) [Mass/Vol] mg/dL NINF - 11 mg/dL [facility] Interpretation and review of laboratory results Abnormal [facility] Opiates Screen Ql (U) Negative Negative [facility] Comment on above: Cutoff threshold at 300 ng/mL. oxyCODONE cutoff Screen (U) [Mass/Vol] Negative Negative [facility] Comment on above: Cutoff threshold at 100 ng/mL. Phencyclidine Ql (U) Negative Negative [facility] Comment on above: Cutoff threshold at 25 [...] on the same specimen through Client Services ([phone]) if contacted within 48 hours of initial testing. [1]Substance Abuse and Mental Health Services Administration (2012). Clinical Drug Testing in Primary Care Technical Assistance Publication Series 32. Department of Health and Human Services, [place], p.10. [facility] Amphetamines Confirm (U) [Mass/Vol] Negative Normal Negative [facility] Comment on above: Order Comment: Speci men Type: URINE SPECIMENOrdering Facility: [facility] Address: [address] [place] [address] Result Comment: Cuto ff threshold at 1000 ng/mL. Performed By: #### U TOX2 ####[facility] LABCLIA [id number] [place] [address] [place] BARBITURATES, URINE Negative Normal Negative [facility] Comment on above: Order Comment: Speci men Type: URINE SPECIMENOrdering Facility: [facility] Address: [address] [place] [address] Result Comment: Cuto ff threshold at 200 ng/mL. Performed By: #### U TOX2 ####[facility] LABCLIA [id number] [place] [address] [place] BENZODIAZEPINES, UR Positive Abnormal Negative [facility] Comment on above: Order Comment: Speci men Type: URINE SPECIMENOrdering Facility: [facility] Address: [address] [place] [address] Result Comment: Cuto ff threshold at 200 ng/mL. Performed By: #### U TOX2 ####[facility] LABCLIA [id number] [place] [address] [place] Cannabinoids Screen Ql (U) Positive Abnormal Negative [facility] Comment on above: Order Comment: Speci men Type: URINE SPECIMENOrdering Facility: [facility] Address: [address] [place] [address] Result Comment: Cuto ff threshold at 50 ng/mL. Performed By: #### U TOX2 ####[facility] LABCLIA [id number] [place] [address] [place] Cocaine Ql (U) Negative Normal Negative [facility] Comment on above: Order Comment: Speci men Type: URINE SPECIMENOrdering Facility: [facility] Address: [address] [place] [address] Result Comment: Cuto ff threshold at 300 ng/mL. Performed By: #### U TOX2 ####[facility] LABCLIA [id number] [place] [address] [place] Ethanol (U) [Mass/Vol] <11 Normal <11 [facility] Comment on above: Order Comment: Speci men Type: URINE SPECIMENOrdering Facility: [facility] Address: [address] [place] [address] Performed By: #### U TOX2 ####[facility] LABIA [id number] [place] [address] [place] Opiates Screen Ql (U) Negative Normal Negative [facility] Comment on above: Order Comment: Speci men Type: URINE SPECIMENOrdering Facility: [facility] Address: [address] [place] [address] Result Comment: Cuto ff threshold at 300 ng/mL. Performed By: #### U TOX2 ####[facility] LABIA [id number] [place] [address] [place] oxyCODONE cutoff Screen (U) [Mass/Vol] Negative Normal Negative [facility] Comment on above: Order Comment: Speci men Type: URINE SPECIMENOrdering Facility: [facility] Address: [address] [place] [address] Result Comment: Cuto ff threshold at 100 ng/mL. Performed By: #### U TOX2 ####[facility] LABIA [id number] [place] [address] [place] Phencyclidine Ql (U) Negative Normal Negative [facility] Comment on above: Order Comment: Speci men Type: URINE SPECIMENOrdering Facility: [facility] Address: [address] [place] [address] Result Comment: Cuto ff threshold at 25 ng/mL. Performed By: #### U TOX2 ####[facility] LABIA [id number] [place] [address] [place] CNOVon 12-11-2023 CNOV Office Visit (SLEWST ) -- KACEY BENTLEY ([id number]) 1960 M Date Time Provider Department 12/11/23 1:30 PM SUSHANT COLMENARES During your visit today, we recorded the following information about you: Pulse Respiration Blood pressure Weight 91/minute 16/minute 106/73 90.4 kg Sushant Colmenares APRN.CNP 12/11/2023 2:11 PM Signed [facility] Disorders Center Follow up/ Established patient [...] working a lot -- 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 He gets 7-8 hrs of sleep per night Amitriptyline 10 mg helps with falling asleep PATIENT-ENTERED QUESTIONNAIRE SLEEP SCORES 12/11/2023 Sleep Questions R (more content not included)... [facility] KACEY BENTLEY ([id number]) 1960 M Date Time Provider Department 11/27/23 [facility]ADHAVI PEREA [facility] During your visit today, we recorded the [...] Encounter Status:Closed by VON CONNER on 11/27/23 [facility] 11-01-2023 [facility] -- KACEY BENTLEY ([id number]) 1960 M Date Time Provider Department 11/01/23 JORGE REDDY JR During your visit today, we recorded the following information about you: Britney Greco RN 11/01/2023 9:41 AM Signed Received voicemail 10-31-23 at 12:57 PM. Good afternoon my name is Jonathan Bentley. Calling for my Kacey Bentley. Birthday [birth year]. If you could please call me back at [phone]. I would appreciate it. He has started [...] Saul Colmenares CNP in 4 weeks in [place]. At that time will need UDS and urine benzo confirm (annual lab). Would also try to stop Amitriptyline at that time if no contraindications. Britney Greco RN 11/01/2023 11:04 AM Signed Received call from patient's . She reports that everything has blown up at his work He is working 12 hour shifts, 7 days a week. He currently works 5A-5P. 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 She reports he may stay on nights though because they just fired someone and he is covering those shifts. Virtual appointments have been missed. During the time he ran out of [employer], he had episodes of falling out of bed and extreme dreams. He has been back on the [employer] as of 10-25-23. He is jumping out of bed, not knowing where he is. Going intermediate around the bedroom and is falling near the window which wakes up and startles her. When he wasn't on the [employer], she has heard him downstairs on the [...] Left voicemail requesting she call the [facility] to schedule in-office visit with any sleep [...] 1 capsule (more content not included)... Normal [facility] Meseret 10-25-2023 [facility] Telephone ([facility]ATYA) -- KACEY BENTLEY ([id number]) 1960 [place] Date Time Provider Department 10/25/23 JORGE REDDY [...] tablet () Patient is currently out. Haylee Soliston October 25, 2023 10:29 AM Jorge Reddy [...] Status:Closed by JORGE REDDY on 10/25/23 Normal [facility] ALT/SGPTon 05-22-2023 ALT [Catalytic activity/Vol] 7 U/L Low 10 - 54 U/L [facility] Cholesterol in LDL Direct as say [Mass/Vol]on 05-22-2023 Cholesterol in LDL [Mass/Vol] 100 mg/dL High <100 mg/dL [facility] LIPOPROTEIN (A)on 05-22-2023 Lipoprotein a [Mass/Vol] 13 mg/dL <30 mg/dL [facility] Basic metabolic 2000 panelon 03-30-2023 Anion gap [Moles/Vol] 7 mmol/L Low 9 - 18 mmol/L [facility] Calcium [Mass/Vol] 9.4 mg/dL 8.5 - 10. 2 mg/dL [facility] Chloride [Moles/Vol] 104 mmol/L 97 - 10 5 mmol/L [facility] CO2 [Moles/Vol] 28 mmol/L 22 - 30 mmol/L [facility] Creatinine [Mass/Vol] 1.07 mg/dL 0.73 - 1.22 mg/dL [facility] Estimated Glomerular Filtration Rate 77 mL/min/1.73m >=60 mL/min/1.73 m [facility] Glucose [Mass/Vol] 80 mg/dL 74 - 99 mg/dL [facility] Potassium [Moles/Vol] 4.8 mmol/L 3.7 - 5.1 mmol/L [facility] Sodium [Moles/Vol] 139 mmol/L 136 - 144 mmol/L [facility] Urea nitrogen [Mass/Vol] 11 mg/dL 9 - 24 mg/dL [facility] T3 FREE Don 03-30-2023 Free T3 [Mass/Vol] 2.6 pg/mL 2.3 - 4.1 pg/mL [facility] T4 FREE/FREE THYROXon 2023 Free T4 [Mass/Vol] 0.9 ng/dL 0.9 - 1.7 ng/dL [facility] TSH Don 03-30-2023 TSH Qn 2.230 m[IU]/L 0.270 - 4.200 mIU/L [facility] VITAMIN B12 BLOODon 03-30-19 Cobalamin (Vitamin B12) [Mass/Vol] 544 pg/mL 232 - 1,245 pg/mL [facility] CBC W Auto Differential pane l (Bld)on 03-29-2023 Basophils (Bld) [#/Vol] 0.04 10*3/uL <0.11 k/uL [facility] Basophils/100 WBC (Bld) 0.5 % [facility] Differential cell count method Nom (Bld) Auto [facility] Eosinophils (Bld) [#/Vol] 0.23 10*3/uL <0.46 k/uL [facility] Eosinophils/100 WBC (Bld) 3.1 % [facility] Erythrocyte distribution width (RBC) [Ratio] 11.9 % 11.5 - 15.0 % [facility] Hematocrit (Bld) [Volume fraction] 42.5 % 39.0 - 51.0 % [facility] Hemoglobin (Bld) [Mass/Vol] 14.3 g/dL 13.0 - 17.0 g/dL [facility] Immature granulocytes (Bld) [#/Vol] <0.10 k/uL [facility] Immature granulocytes/100 WBC (Bld) 0.1 % [facility] Lymphocytes (Bld) [#/Vol] 2.05 10*3/uL 1.00 - 4.00 k/uL [facility] Lymphocytes/100 WBC (Bld) 27.6 % [facility] MCH (RBC) [Entitic mass] 31.6 pg 26.0 - 34.0 pg [facility] MCHC (RBC) [Mass/Vol] 33.6 g/dL 30.5 - 36.0 g/dL [facility] MCV (RBC) [Entitic vol] 94.0 fL 80.0 - 100.0 fL [facility] Monocytes (Bld) [#/Vol] 0.77 10*3/uL <0.87 k/uL [facility] Monocytes/100 WBC (Bld) 10.4 % [facility] Neutrophils (Bld) [#/Vol] 4.32 10*3/uL 1.45 - 7.50 k/uL [facility] Neutrophils/100 WBC (Bld) 58.3 % [facility] Nucleated RBC (Bld) [#/Vol] <0.01 k/uL [facility] Nucleated RBC/100 WBC (Bld) [Ratio] 0.0 /100 WBC [facility] Platelet mean volume (Bld) [Entitic vol] 10.2 fL 9.0 - 12.7 fL [facility] Platelets (Bld) [#/Vol] 179 10*3/uL 150 - 400 k/uL [facility] RBC (Bld) [#/Vol] 4.52 10*6/uL 4.20 - 6.0 0 m/uL [facility] WBC (Bld) [#/Vol] 7.42 10*3/uL 3.70 - 11.00 k/uL [facility] Absolute lymphocyte countOrd ered By: Brett Marcus on 09-17-2022 Lymphocytes Auto (Unsp spec) [#/Vol] 2.24 10*3/uL 0.83-4.51 [facility] Basophil percentageOrdered B y: Brett Marcus on 09-17-2022 Basophils/100 WBC (Bld) 0.5 % 0-1 [facility] Chloride [Moles/Vol] 107 mmol/L 98-107 [facility] Eosinophils/100 WBC (Bld) 3.0 % 0-5 [facility] Glucose [Mass/Vol] 97 mg/dL 74-[address] [facility] Neutrophils (Bld) [#/Vol] 3.6 10*3/uL 2.0-7.7 [facility] Neutrophils/100 WBC (Bld) 54.5 % 47-70 [facility] Potassium [Moles/Vol] 4.0 mmol/L 3.5-5.1 [facility] Sodium [Moles/Vol] 141 mmol/L 136-[address] [facility] WBC (Bld) [#/Vol] 6.6 10*3/uL 4.4-11.[address] [facility] Blood erythrocytes count (nu mber/volume)Ordered By: Brett Marcus on 09-17-2022 RBC (Bld) [#/Vol] 4.49 10*6/uL 4.6-6.2 [facility] Blood hemoglobin measurement (mass/volume)Ordered By: Brett Marcus on 09-17-2022 Hemoglobin (Bld) [Mass/Vol] 14.3 g/dL 13.0-16.5 [facility] Blood lymphocytes/100 leukoc ytesOrdered By: Brett Marcus on 09-17-2022 Lymphocytes/100 WBC (Bld) 33.7 % 19-41 [facility] Blood monocytes/100 leukocyt esOrdered By: Brett Marcus on 09-17-2022 Monocytes/100 WBC (Bld) 8.0 % 0-10 [facility] Blood platelet mean volumeOr dered By: Brett Marcus on 09-17-2022 Platelet mean volume (Bld) [Entitic vol] 10.1 fL 6.2-12.0 [facility] Determination of erythrocyte mean corpuscular volume (MCV)Ordered By: Brett Marcus on 09-17-2022 MCV (RBC) [Entitic vol] 94.4 fL 80-94 [facility] Hematocrit Auto (Bld) [Volum e fraction]Ordered By: Brett Marcus on 09-17-2022 Hematocrit (Bld) [Volume fraction] 42.4 % 40-54 [facility] Laboratory - Chemistry and C hemistry - challengeOrdered By: Brett Marcus on 09-17-2022 CO2 [Moles/Vol] 28.0 mmol/L 21.0-32.0 [facility] Urea nitrogen/Creatinine [Mass ratio] 12.9 mg/mg 10-20 [facility] Laboratory - Hematology and Cell countsOrdered By: Brett Marcus on 09-17-2022 Erythrocyte distribution width (RBC) [Entitic vol] 40.8 fL 35.1-43.9 [facility] Erythrocyte distribution width (RBC) [Ratio] 11.8 % 11.6-14.6 [facility] Immature granulocytes/100 WBC (Bld) 0.300 % 0.0-0.9 [facility] Comment on above: IG% - Immature Granu locytes (promyelocytes, myelocytes and metamyelocytes) > 1% indicates that a LEFT SHIFT is Present. MCH (RBC) [Entitic mass] 31.8 pg 27.0-32.0 [facility] Nucleated RBC/100 WBC (Bld) [Ratio] 0 % 0-5 [facility] MCHC Auto (RBC) [Mass/Vol]Or dered By: Brett Marcus on 09-17-2022 MCHC (RBC) [Mass/Vol] 33.7 g/dL 32-36 [facility] No Panel InformationOrdered By: Brett Marcus on 09-17-2022 Estimated Creatinine Clearance Calc 68.52 ml/min [facility] Estimated GFR (MDRD) Amer 81 mL/min >60 [facility] Comment on above: GFR Calc Estimated GFR (MDRD) Non-Af Amer 67 mL/min >60 [facility] Comment on above: Non- GFR Calc Ethyl Alcohol Level 127.0 mg/dL [facility] Comment on above: The serum:whole bloo d ethanol ratio is approximately 1.14and varies slightly with hematocrit. Medical Alcohol reference interval and critical value innon-tolerant individuals; 50 - 100 Impairment 100 Intoxication 100 - 250 Severe Poisoning 250 - 400 Deep/possible fatal coma Platelets bldOrdered By: Jose Marcus on 09-17-2022 Platelets (Bld) [#/Vol] 166 10*3/uL 150-450 [facility] Serum or plasma calcium manuel urement (mass/volume)Ordered By: Brett Marcus on 09-17-2022 Calcium [Mass/Vol] 8.9 mg/dL 8.5-10.[address] [facility] Serum or plasma creatinine m easurement (mass/volume)Ordered By: Brett Marcus on 09-17-2022 Creatinine [Mass/Vol] 1.16 mg/dL 0.70-1.30 [facility] Comment on above: The validity of the calculated GFR & GFRAA in patients over 70 years has not been determined. Clinical correlation is essential. Serum or plasma urea nitroge n measurement (mass/volume)Ordered By: Brett Marcus on 09-17-2022 Urea nitrogen [Mass/Vol] 15 mg/dL 7-18 [facility] Thin prep Papanicolaou smear with manual screeningOrdered By: Brett Marcus on 09-17-2022 Thin prep Papanicolaou smear with manual screening 6 5-15 [facility] Absolute lymphocyte countOrd ered By: Zulay Sanz on 09-05-2022 Lymphocytes Auto (Unsp spec) [#/Vol] 1.92 10*3/uL 0.83-4.51 [facility] Basophil percentageOrdered B y: Zulay Sanz on 09-05-2022 Basophil percentage 0-5 SEEN /hpf 0-5 [facility] Basophils/100 WBC (Bld) 0.6 % 0-1 [facility] Chloride [Moles/Vol] 108 mmol/L 98-107 [facility] Eosinophils/100 WBC (Bld) 1.4 % 0-5 [facility] Glucose [Mass/Vol] 92 mg/dL 74-[address] [facility] Neutrophils (Bld) [#/Vol] 3.8 10*3/uL 2.0-7.7 [facility] Neutrophils/100 WBC (Bld) 58.8 % 47-70 [facility] Potassium [Moles/Vol] 3.3 mmol/L 3.5-5.1 [facility] Sodium [Moles/Vol] 140 mmol/L 136-[address] [facility] WBC (Bld) [#/Vol] 6.5 10*3/uL 4.4-11.[address] [facility] Bilirubin Test strip Ql (U)O rdered By: Zulay Sanz on 09-05-2022 Bilirubin Ql (U) Negative Negative [facility] Blood erythrocytes count (nu mber/volume)Ordered By: Zulay Sanz on 09-05-2022 RBC (Bld) [#/Vol] 4.72 10*6/uL 4.6-6.2 [facility] Blood hemoglobin measurement (mass/volume)Ordered By: Zulay Sanz on 09-05-2022 Hemoglobin (Bld) [Mass/Vol] 15.0 g/dL 13.0-16.5 [facility] Blood lymphocytes/100 leukoc ytesOrdered By: Zulay Sanz on 09-05-2022 Lymphocytes/100 WBC (Bld) 29.6 % 19-41 [facility] Blood monocytes/100 leukocyt esOrdered By: Zulay Sanz on 09-05-2022 Monocytes/100 WBC (Bld) 9.4 % 0-10 [facility] Blood platelet mean volumeOr dered By: Zulay Sanz on 09-05-2022 Platelet mean volume (Bld) [Entitic vol] 10.1 fL 6.2-12.0 [facility] Determination of erythrocyte mean corpuscular volume (MCV)Ordered By: Zulay Sanz on 09-05-2022 MCV (RBC) [Entitic vol] 94.5 fL 80-94 [facility] Hematocrit Auto (Bld) [Volum e fraction]Ordered By: Zulay Sanz on 09-05-2022 Hematocrit (Bld) [Volume fraction] 44.6 % 40-54 [facility] Ketones Test strip Ql (U)Ord ered By: Zulay Sanz on 09-05-2022 Ketones Ql (U) Negative Negative [facility] Laboratory - Chemistry and C hemistry - challengeOrdered By: Zulay Sanz on 09-05-2022 CO2 [Moles/Vol] 28.0 mmol/L 21.0-32.0 [facility] Urea nitrogen/Creatinine [Mass ratio] 16.7 mg/mg 10-20 [facility] Laboratory - Hematology and Cell countsOrdered By: Zulay Sanz on 09-05-2022 Erythrocyte distribution width (RBC) [Entitic vol] 40.8 fL 35.1-43.9 [facility] Erythrocyte distribution width (RBC) [Ratio] 11.8 % 11.6-14.6 [facility] Immature granulocytes/100 WBC (Bld) 0.200 % 0.0-0.9 [facility] Comment on above: IG% - Immature Granu locytes (promyelocytes, myelocytes and metamyelocytes) > 1% indicates that a LEFT SHIFT is Present. MCH (RBC) [Entitic mass] 31.8 pg 27.0-32.0 [facility] Nucleated RBC/100 WBC (Bld) [Ratio] 0 % 0-5 [facility] MCHC Auto (RBC) [Mass/Vol]Or dered By: Zulay Sanz on 09-05-2022 MCHC (RBC) [Mass/Vol] 33.6 g/dL 32-36 [facility] Mucus LM Ql (Urine sed)Order ed By: Zulay Sanz on 09-05-2022 Mucus Ql (Urine sed) 0 SEEN /hpf [facility] Nitrite Test strip Ql (U)Ord ered By: Zulay Sanz on 09-05-2022 Nitrite Ql (U) Negative Negative [facility] No Panel InformationOrdered By: Zulay Sanz on 09-05-2022 Estimated Creatinine Clearance Calc 73.60 ml/min [facility] Estimated GFR (MDRD) Amer 88 mL/min >60 [facility] Comment on above: GFR Calc Estimated GFR (MDRD) Non-Af Amer 73 mL/min >60 [facility] Comment on above: Non- GFR Calc Platelets bldOrdered By: Trina Sanz on 09-05-2022 Platelets (Bld) [#/Vol] 157 10*3/uL 150-450 [facility] Protein Test strip Ql (U)Ord ered By: Zulay Sanz on 09-05-2022 Protein Ql (U) 15 mg/dl Negative [facility] Respiratory pathogens detect ion panel by molecular detection methodOrdered By: Zulay Sanz on 09-05-2022 Respiratory pathogens DNA and RNA panel ALMAS+probe (Resp) [facility] Serum or plasma calcium manuel urement (mass/volume)Ordered By: Zulay Sanz on 09-05-2022 Calcium [Mass/Vol] 9.1 mg/dL 8.5-10.[address] [facility] Serum or plasma creatinine m easurement (mass/volume)Ordered By: Zulay Sanz on 09-05-2022 Creatinine [Mass/Vol] 1.08 mg/dL 0.70-1.30 [facility] Comment on above: The validity of the calculated GFR & GFRAA in patients over 70 years has not been determined. Clinical correlation is essential. Serum or plasma urea nitroge n measurement (mass/volume)Ordered By: Zulay Sanz on 09-05-2022 Urea nitrogen [Mass/Vol] 18 mg/dL 7-18 [facility] Squamous epithelial cells de tection in urine sediment by light microscopyOrdered By: Zulay Sanz on 09-05-2022 Epithelial cells.squamous LM Ql (Urine sed) 0-5 SEEN /hpf 0-5 [facility] Thin prep Papanicolaou smear with manual screeningOrdered By: Zulay Sanz on 09-05-2022 Thin prep Papanicolaou smear with manual screening 4 5-15 [facility] Urine blood detectionOrdered By: Zulay Sanz on 09-05-2022 RBC Ql (U) 10 /ul Negative [facility] RBC Ql (U) 0-5 SEEN /hpf 0-5 [facility] Urine clarityOrdered By: Trina Sanz on 09-05-2022 Clarity (U) Clear Clear [facility] Urine color determinationOrd ered By: Zulay Sanz on 09-05-2022 Color (U) Yellow Yellow [facility] Urine glucose detectionOrder ed By: Zulay Sanz on 09-05-2022 Glucose Ql (U) Normal mg/dl Normal [facility] Urine leukocyte esterase det ection by dipstickOrdered By: Zulay Sanz on 09-05-2022 Leukocyte esterase Test strip Ql (U) 25 /ul Negative [facility] Urine pHOrdered By: Zulay Sanz on 09-05-2022 pH (U) 7.0 [pH] 5.0 - 8.0 [facility] Urine sediment bacteria coun t by microscopy (number/high power field)Ordered By: Zulay Sanz on 09-05-2022 Bacteria LM.HPF (Urine sed) [#/Area] 0 /[HPF] None Seen [facility] Urine specific gravity measu rementOrdered By: Zulay Sanz on 09-05-2022 Specific gravity (U) [Rel density] 1.010 1.002-1.030 [facility] Urobilinogen Auto test strip Ql (U)Ordered By: Zulay Sanz on 09-05-2022 Urobilinogen Ql (U) Normal mg/dl Normal [facility] EGD - THERAPEUTIC, EUS, OR T UBE INTERVENTIONSon 12-28-2021 [facility] US THYROID/PARATHYROIDon [facility] Absolute lymphocyte counton 09-27-2021 Lymphocytes Auto (Unsp spec) [#/Vol] 1.82 10*3/uL 0.83-4.51 [facility] Work Phone: Basophil percentageon 2021 Basophils/100 WBC (Bld) 0.3 % 0-1 [facility] Work Phone: Chloride [Moles/Vol] 105 mmol/L 98-107 [facility] Work Phone: Eosinophils/100 WBC (Bld) 5.3 % 0-5 [facility] Work Phone: Glucose [Mass/Vol] 106 mg/dL 74-[address] [facility] Work Phone: [phone] Comment on above: Fasting Glucose resu lt from 100 to 125 mg/dL suggests IMPAIRED HOMEOSTASIS per A.D.A. criteria. Neutrophils (Bld) [#/Vol] 3.2 10*3/uL 2.0-7.7 [facility] Work Phone: Neutrophils/100 WBC (Bld) 53.2 % 47-70 [facility] Work Phone: Potassium [Moles/Vol] 4.0 mmol/L 3.5-5.1 [facility] Work Phone: [phone] Sodium [Moles/Vol] 138 mmol/L 136-[address] [facility] Work Phone: WBC (Bld) [#/Vol] 6.0 10*3/uL 4.4-11.[address] [facility] Work Phone: Blood erythrocytes count (nu mber/volume)on 09-27-2021 RBC (Bld) [#/Vol] 4.19 10*6/uL 4.6-6.2 [facility] Work Phone: Blood hemoglobin measurement (mass/volume)on 09-27-2021 Hemoglobin (Bld) [Mass/Vol] 13.6 g/dL 13.0-16.5 [facility] Work Phone: [phone] Blood lymphocytes/100 leukoc yteson 09-27-2021 Lymphocytes/100 WBC (Bld) 30.2 % 19-41 [facility] Work Phone: Blood monocytes/100 leukocyt eson 09-27-2021 Monocytes/100 WBC (Bld) 10.8 % 0-10 [facility] Work Phone: Blood platelet mean volumeon 09-27-2021 Platelet mean volume (Bld) [Entitic vol] 10.0 fL 6.2-12.0 [facility] Work Phone: Determination of erythrocyte mean corpuscular volume (MCV)on 09-27-2021 MCV (RBC) [Entitic vol] 95.0 fL 80-94 [facility] Work Phone: Hematocrit Auto (Bld) [Volum e fraction]on 09-27-2021 Hematocrit (Bld) [Volume fraction] 39.8 % 40-54 [facility] Work Phone: Laboratory - Chemistry and C hemistry - challengeon 09-27-2021 CO2 [Moles/Vol] 29.0 mmol/L 21.0-32.0 [facility] Work Phone: Urea nitrogen/Creatinine [Mass ratio] 19.3 mg/mg 10-20 [facility] Work Phone: Laboratory - Hematology and Cell countson 09-27-2021 Erythrocyte distribution width (RBC) [Entitic vol] 40.8 fL 35.1-43.9 [facility] Work Phone: Erythrocyte distribution width (RBC) [Ratio] 11.8 % 11.6-14.6 [facility] Work Phone: Immature granulocytes/100 WBC (Bld) 0.200 % 0.0-0.9 [facility] Work Phone: Comment on above: IG% - Immature Granu locytes (promyelocytes, myelocytes and metamyelocytes) > 1% indicates that a LEFT SHIFT is Present. MCH (RBC) [Entitic mass] 32.5 pg 27.0-32.0 [facility] Work Phone: Nucleated RBC/100 WBC (Bld) [Ratio] 0 % 0-5 [facility] Work Phone: MCHC Auto (RBC) [Mass/Vol]on 09-27-2021 MCHC (RBC) [Mass/Vol] 34.2 g/dL 32-36 [facility] Work Phone: No Panel Informationon 09-27 Estimated Creatinine Clearance Calc 86.59 ml/min [facility] Work Phone: Estimated GFR (MDRD) Amer 105 mL/min >60 [facility] Work Phone: Comment on above: GFR Calc Estimated GFR (MDRD) Non-Af Amer 87 mL/min >60 [facility] Work Phone: Comment on above: Non- GFR Calc Platelets bldon 09-27-2021 Platelets (Bld) [#/Vol] 138 10*3/uL 150-450 [facility] Work Phone: Serum or plasma calcium manuel urement (mass/volume)on 09-27-2021 Calcium [Mass/Vol] 8.5 mg/dL 8.5-10.[address] [facility] Work Phone: Serum or plasma creatinine m easurement (mass/volume)on 09-27-2021 Creatinine [Mass/Vol] 0.93 mg/dL 0.70-1.30 [facility] Work Phone: Comment on above: The validity of the calculated GFR & GFRAA in patients over 70 years has not been determined. Clinical correlation is essential. Serum or plasma urea nitroge n measurement (mass/volume)on 09-27-2021 Urea nitrogen [Mass/Vol] 18 mg/dL 7-18 [facility] Work Phone: Thin prep Papanicolaou smear with manual screeningon 09-27-2021 Thin prep Papanicolaou smear with manual screening 4 5-15 [facility] Work Phone: Basophil percentageon 2021 Bilirubin [Mass/Vol] 0.50 mg/dL 0.20-1.00 [facility] Work Phone: Comment on above: For patients on eltr ombopag therapy, use of Dimension [place] TBIL is not recommended. Protein [Mass/Vol] 6.3 g/dL 6.4-8.[address] [facility] Work Phone: Laboratory - Chemistry and C hemistry - challengeon 09-26-2021 ALP [Catalytic activity/Vol] 48 U/L 45-117 [facility] Work Phone: ALT [Catalytic activity/Vol] 12 U/L 16-61 [facility] Work Phone: Globulin (S) [Mass/Vol] 2.9 g/dL 2.2-4.2 [facility] Work Phone: Serum or plasma albumin manuel urement (mass/volume)on 09-26-2021 Albumin [Mass/Vol] 3.4 g/dL 3.2-5.[address] [facility] Work Phone: Serum or plasma albumin/glob ulin mass ratioon 09-26-2021 Albumin/Globulin [Mass ratio] 1.2 {ratio} 0.9-2.4 [facility] Work Phone: Thin prep Papanicolaou smear with manual screeningon 09-26-2021 Thin prep Papanicolaou smear with manual screening 21 U/L 15-37 [facility] Work Phone: Absolute lymphocyte counton 09-25-2021 Lymphocytes Auto (Unsp spec) [#/Vol] 1.99 10*3/uL 0.83-4.51 [facility] Work Phone: Basophil percentageon 2021 Basophils/100 WBC (Bld) 0.4 % 0-1 [facility] Work Phone: Chloride [Moles/Vol] 108 mmol/L 98-107 [facility] Work Phone: Eosinophils/100 WBC (Bld) 3.9 % 0-5 [facility] Work Phone: Glucose [Mass/Vol] 112 mg/dL 74-[address] [facility] Work Phone: Comment on above: Fasting Glucose resu lt from 100 to 125 mg/dL suggests IMPAIRED HOMEOSTASIS per A.D.A. criteria. Neutrophils (Bld) [#/Vol] 3.7 10*3/uL 2.0-7.7 [facility] Work Phone: Neutrophils/100 WBC (Bld) 55.1 % 47-70 [facility] Work Phone: Potassium [Moles/Vol] 3.8 mmol/L 3.5-5.1 [facility] Work Phone: Sodium [Moles/Vol] 139 mmol/L 136-[facility] Work Phone: WBC (Bld) [#/Vol] 6.7 10*3/uL 4.4-11.[address] [facility] Work Phone: Blood erythrocytes count (nu mber/volume)on 09-25-2021 RBC (Bld) [#/Vol] 4.18 10*6/uL 4.6-6.2 [facility] Work Phone: Blood hemoglobin measurement (mass/volume)on 09-25-2021 Hemoglobin (Bld) [Mass/Vol] 13.6 g/dL 13.0-16.5 [facility] Work Phone: Blood lymphocytes/100 leukoc yteson 09-25-2021 Lymphocytes/100 WBC (Bld) 29.7 % 19-41 [facility] Work Phone: Blood monocytes/100 leukocyt eson 09-25-2021 Monocytes/100 WBC (Bld) 10.6 % 0-10 [facility] Work Phone: Blood platelet mean volumeon 09-25-2021 Platelet mean volume (Bld) [Entitic vol] 10.1 fL 6.2-12.0 [facility] Work Phone: Determination of erythrocyte mean corpuscular volume (MCV)on 09-25-2021 MCV (RBC) [Entitic vol] 94.5 fL 80-94 [facility] Work Phone: Erythrocyte sedimentation ra chuck 09-25-2021 ESR (Bld) [Velocity] 8 mm/h 0-20 [facility] Work Phone: Hematocrit Auto (Bld) [Volum e fraction]on 09-25-2021 Hematocrit (Bld) [Volume fraction] 39.5 % 40-54 [facility] Work Phone: Laboratory - Chemistry and C hemistry - challengeon 09-25-2021 CK [Catalytic activity/Vol] 263 U/L 39-308 [facility] Work Phone: CO2 [Moles/Vol] 25.0 mmol/L 21.0-32.0 [facility] Work Phone: Urea nitrogen/Creatinine [Mass ratio] 18.3 mg/mg 10-20 [facility] Work Phone: Laboratory - Hematology and Cell countson 09-25-2021 Erythrocyte distribution width (RBC) [Entitic vol] 40.6 fL 35.1-43.9 [facility] Work Phone: Erythrocyte distribution width (RBC) [Ratio] 11.7 % 11.6-14.6 [facility] Work Phone: Immature granulocytes/100 WBC (Bld) 0.300 % 0.0-0.9 [facility] Work Phone: Comment on above: IG% - Immature Granu locytes (promyelocytes, myelocytes and metamyelocytes) > 1% indicates that a LEFT SHIFT is Present. MCH (RBC) [Entitic mass] 32.5 pg 27.0-32.0 [facility] Work Phone: Nucleated RBC/100 WBC (Bld) [Ratio] 0 % 0-5 [facility] Work Phone: MCHC Auto (RBC) [Mass/Vol]on 09-25-2021 MCHC (RBC) [Mass/Vol] 34.4 g/dL 32-36 [facility] Work [facility]: No Panel Informationon 09-25 Estimated Creatinine Clearance Calc 63.91 ml/min [facility] Work Phone: Estimated GFR (MDRD) Amer 74 mL/min >60 [facility] Work Phone: Comment on above: GFR Calc Estimated GFR (MDRD) Non-Af Amer 61 mL/min >60 [facility] Work Phone: Comment on above: Non- GFR Calc Platelets bldon 09-25-2021 Platelets (Bld) [#/Vol] 153 10*3/uL 150-450 [facility] Work Phone: Serum or plasma C reactive p rotein measurement (mass/volume)on 09-25-2021 CRP [Mass/Vol] 25.60 mg/L 0.0-3.0 [facility] Work Phone: Comment on above: C-Reactive Protein ( CRP) provides useful information for thediagnosis, therapy and monitoring of inflammatory processesand associated diseases. For the evaluation of Relative Riskfor Cardiovascular Disease, a High Sensitivity CRP (HSCRP)should be ordered. Serum or plasma calcium manuel urement (mass/volume)on 09-25-2021 Calcium [Mass/Vol] 9.1 mg/dL 8.5-10.[address] [facility] Work Phone: Serum or plasma creatinine m easurement (mass/volume)on 09-25-2021 Creatinine [Mass/Vol] 1.26 mg/dL 0.70-1.30 [facility] Work Phone: Comment on above: The validity of the calculated GFR & GFRAA in patients over 70 years has not been determined. Clinical correlation is essential. Serum or plasma urea nitroge n measurement (mass/volume)on 09-25-2021 Urea nitrogen [Mass/Vol] 23 mg/dL 7-18 [facility] Work Phone: Thin prep Papanicolaou smear with manual screeningon 09-25-2021 Thin prep Papanicolaou smear with manual screening 6 5-15 [facility] Work Phone: XR Chest PA and Lateralon IMPRESSION: No acute radiographic abnormality. 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: DEMIAN Transcribe Date/Time: Feb 28 2020 4:34P Dictated by : LEONA WYATT MD This examination was interpreted and the report reviewed and electronically signed by: LEONA WYATT MD on Feb 28 2020 4:34PM [facility] DIVISION OF RADIOLOGY * * [...] soft tissues: Unremarkable. DIVISION OF RADIOLOGY Provider, Jackie Bishop [facility] - 02/28/2020 * * *Final Report* [...] Unremarkable. IMPRESSION IMPRESSION: No acute radiographic abnormality. 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: PSCB Transcribe Date/Time: Feb 28 2020 4:34P Dictated by : LEONA WYATT MD This examination was interpreted and the report reviewed and electronically signed by: LEONA WYATT MD on Feb 28 2020 4:34PM EST [facility] Radiology Study observation (narrative) [facility] XR Chest PA and LateralOrder ed By: [facility] Provider on 02-28-2020 [facility] Vital Signs Date Time Vital Sign Value Performing Clinician Facility 10-05-2024 04:00-0400 Body temperature 98 [degF] Dr. Jules Haynes DO Work Phone: [facility] 10-05-2024 04:00-0400 Diastolic blood pressure 83 mm[Hg] Dr. Jules Haynes DO Work Phone: [facility] 10-05-2024 04:00-0400 Heart rate 70 /min Dr. Jules Haynes DO Work Phone: [facility] 10-05-2024 04:00-0400 Respiratory rate 18 /min Dr. Jules Haynes DO Work Phone: [facility] 10-05-2024 04:00-0400 SaO2% (BldA) [Mass fraction] 96 % Dr. Jules Haynes DO Work Phone: [facility] 10-05-2024 04:00-0400 Systolic blood pressure 144 mm[Hg] Dr. Jules Haynes DO Work Phone: [facility] 10-05-2024 00:50-0400 Body height 182.[address] Jules Haynes DO Work Phone: [facility] 10-05-2024 00:50-0400 Body mass index (BMI) [Ratio] 26.3 kg/m2 Dr. Jules Haynes DO Work Phone: [facility] 10-05-2024 00:50-0400 Body weight 87.[address] Jules Haynes DO Work Phone: [facility] 08-20-2024 08:26-0400 Body height 182.2 cm Clarisse Cee PA-C Work Phone: [facility] 08-20-2024 08:26-0400 Body mass index (BMI) [Ratio] 25.4 kg/m2 Clarisse Cee PA-C Work Phone: [facility] 08-20-2024 08:26-0400 Body temperature 97.81 [degF] Clarisse Cee PA-C Work Phone: [facility] 08-20-2024 08:26-0400 Body weight 84.37 kg Clarisse Cee PA-C Work Phone: [facility] 08-20-2024 08:26-0400 Diastolic blood pressure 70 mm[Hg] Clarisse Cee PA-C Work Phone: [facility] 08-20-2024 08:26-0400 Heart rate 76 /min Clarisse Cee PA-C Work Phone: [facility] 08-20-2024 08:26-0400 Respiratory rate 14 /min Clarisse Cee PA-C Work Phone: [facility] 08-20-2024 08:26-0400 SaO2% (BldA) [Mass fraction] 97 % Clarisse Cee PA-C Work Phone: [facility] 08-20-2024 08:26-0400 Systolic blood pressure 112 mm[Hg] Clarisse Cee PA-C Work Phone: [facility] 08-18-2024 22:55-0400 Body temperature 98.6 [degF] Dr. Jules Haynes DO Work Phone: [facility] 08-18-2024 22:55-0400 Diastolic blood pressure 70 mm[Hg] Dr. Jules Haynes DO Work Phone: [facility] 08-18-2024 22:55-0400 Heart rate 78 /min Dr. Jules Haynes DO Work Phone: [facility] 08-18-2024 22:55-0400 Respiratory rate 18 /min Dr. Jules Haynes DO Work Phone: [facility] 08-18-2024 22:55-0400 SaO2% (BldA) [Mass fraction] 98 % Dr. Jules Haynes DO Work Phone: [facility] 08-18-2024 22:55-0400 Systolic blood pressure 128 mm[Hg] Dr. Jules Haynes DO Work Phone: [facility] 08-18-2024 20:09-0400 Body height 182.[address] Jules Haynes DO Work Phone: [facility] 08-18-2024 20:09-0400 Body mass index (BMI) [Ratio] 25 kg/m2 Dr. Jules Haynes DO Work Phone: [facility] 08-18-2024 20:09-0400 Body weight 83.[address] Jules Haynes DO Work Phone: [facility] 08-12-2024 13:25-0400 Body mass index (BMI) [Ratio] 25.94 kg/m2 Sushant Darrian REJECTOR.STRE[employer] LIGHT REPAIRER HELPER Work Phone: [facility] 08-12-2024 13:25-0400 Body weight 84.37 kg Sushant Darrian REJECTOR.STRE[employer] LIGHT REPAIRER HELPER Work Phone: [facility] 08-12-2024 13:25-0400 Diastolic blood pressure 64 mm[Hg] Sushant Darrian REJECTOR.STRE[employer] LIGHT REPAIRER HELPER Work Phone: [facility] 08-12-2024 13:25-0400 Heart rate 98 /min Sushant Darrian REJECTOR.STRE[employer] LIGHT REPAIRER HELPER Work Phone: [facility] 08-12-2024 13:25-0400 Respiratory rate 16 /min Sushant Darrian REJECTOR.STRE[employer] LIGHT REPAIRER HELPER Work Phone: [facility] 08-12-2024 13:25-0400 SaO2% (BldA) [Mass fraction] 97 % Sushant Darrian REJECTOR.STRE[employer] LIGHT REPAIRER HELPER Work Phone: [facility] 08-12-2024 13:25-0400 Systolic blood pressure 94 mm[Hg] Sushant Darrian REJECT[employer].STRE[employer] LIGHT REPAIRER HELPER Work Phone: [facility] 08-04-2024 14:20-0400 Body mass index (BMI) [Ratio] 26.35 kg/m2 Kenji Clutter PA-C Work Phone: [facility] 08-04-2024 14:20-0400 Body weight 85.7 kg Kenji Clutter PA-C Work Phone: [facility] 08-04-2024 14:20-0400 Diastolic blood pressure 78 mm[Hg] Kneji Clutter PA-C Work Phone: [facility] 08-04-2024 14:20-0400 Heart rate 70 /min Kenji Clutter PA-C Work Phone: [facility] 08-04-2024 14:20-0400 Respiratory rate 16 /min Kenji Clutter PA-C Work Phone: [facility] 08-04-2024 14:20-0400 SaO2% (BldA) [Mass fraction] 97 % Kenji Clutter PA-C Work Phone: [facility] 08-04-2024 14:20-0400 Systolic blood pressure 137 mm[Hg] Kenji Clutter PA-C Work Phone: [facility] 03-25-2024 08:29-0500 Body mass index (BMI) [Ratio] 27.75 kg/m2 Jules Haynes DO Work Phone: [facility] 03-25-2024 08:29-0500 Body temperature 97.59 [degF] Jules Haynes DO Work Phone: [facility] 03-25-2024 08:29-0500 Body weight 90.27 kg Jules Haynes DO Work Phone: [facility] 03-25-2024 08:29-0500 Diastolic blood pressure 80 mm[Hg] Jules Haynes DO Work Phone: [facility] 03-25-2024 08:29-0500 Heart rate 76 /min Jules Haynes DO Work Phone: [facility] 03-25-2024 08:29-0500 Respiratory rate 16 /min Jules Haynes DO Work Phone: [facility] 03-25-2024 08:29-0500 Systolic blood pressure 124 mm[Hg] Jules Haynes DO Work Phone: [facility] 01-08-2024 10:47-0500 Body mass index (BMI) [Ratio] 28.4 kg/m2 Jorge Reddy Jr., MD Work Phone: [facility] 01-08-2024 10:47-0500 Body weight 92.35 kg Jorge Reddy Jr., MD Work Phone: [facility] 01-08-2024 10:47-0500 Diastolic blood pressure 77 mm[Hg] Jorge Reddy Jr., MD Work Phone: [facility] 01-08-2024 10:47-0500 Heart rate 87 /min Jorge Reddy Jr., MD Work Phone: [facility] 01-08-2024 10:47-0500 SaO2% (BldA) [Mass fraction] 99 % Jorge Reddy Jr., MD Work Phone: [facility] 01-08-2024 10:47-0500 Systolic blood pressure 123 mm[Hg] Jorge Reddy Jr., MD Work Phone: [facility] 12-11-2023 13:33-0400 Body mass index (BMI) [Ratio] 27.8 kg/m2 Sushant Darrian REJECTOR[employer]RE[employer] LIGHT REPAIRER HELPER Work Phone: [facility] 12-11-2023 13:33-0400 Body weight 90.4 kg Sushant Darrian REJECTOR.[employer]RE[employer] LIGHT REPAIRER HELPER Work Phone: [facility] 12-11-2023 13:33-0400 Diastolic blood pressure 73 mm[Hg] Sushant Darrian REJECTOR.STRE[employer] LIGHT REPAIRER HELPER Work Phone: [facility] 12-11-2023 13:33-0400 Heart rate 91 /min Sushant Darrian REJECTOR[employer]RE[employer] LIGHT REPAIRER HELPER Work Phone: [facility] 12-11-2023 13:33-0400 Respiratory rate 16 /min Sushant Darrian REJECTOR.STRE[employer] LIGHT REPAIRER HELPER Work Phone: [facility] 12-11-2023 13:33-0400 SaO2% (BldA) [Mass fraction] 98 % Sushant Darrian REJECTOR.STRE[employer] LIGHT REPAIRER HELPER Work Phone: [facility] 12-11-2023 13:33-0400 Systolic blood pressure 106 mm[Hg] Sushant Darrian REJECT[employer]RE[employer] LIGHT REPAIRER HELPER Work Phone: [facility] 07-31-2023 11:49-0400 Body mass index (BMI) [Ratio] 28.31 kg/m2 Jules Haynes DO Work Phone: [facility] 07-31-2023 11:49-0400 Body temperature 97 [degF] Jules Haynes DO Work Phone: [facility] 07-31-2023 11:49-0400 Body weight 92.08 kg Jules Haynes DO Work Phone: [facility] 07-31-2023 11:49-0400 Diastolic blood pressure 80 mm[Hg] Jules Haynes DO Work Phone: [facility] 07-31-2023 11:49-0400 Heart rate 68 /min Jules Haynes DO Work Phone: [facility] 07-31-2023 11:49-0400 Respiratory rate 16 /min Jules Haynes DO Work Phone: [facility] 07-31-2023 11:49-0400 Systolic blood pressure 124 mm[Hg] Jules Haynes DO Work Phone: [facility] 06-27-2023 11:23-0400 Body mass index (BMI) [Ratio] 28.79 kg/m2 Danisha Rajguru REJECTOR.STRE[employer] LIGHT REPAIRER HELPER Work Phone: [facility] 06-27-2023 11:23-0400 Body weight 93.62 kg Danisha Rajguru REJECTOR.[employer]RE[employer] LIGHT REPAIRER HELPER Work Phone: [facility] 06-27-2023 11:23-0400 Diastolic blood pressure 74 mm[Hg] Danisha Rajguru REJECT[employer]STRE[employer] LIGHT REPAIRER HELPER Work Phone: [facility] 06-27-2023 11:23-0400 Heart rate 84 /min Danisha Rajguru REJECTOR.STRE[employer] LIGHT REPAIRER HELPER Work Phone: [facility] 06-27-2023 11:23-0400 Systolic blood pressure 142 mm[Hg] Danisha Rajguru REJECTOR.STRE[employer] LIGHT REPAIRER HELPER Work Phone: [facility] 06-23-2023 09:13-0400 Body mass index (BMI) [Ratio] 28.31 kg/m2 Jorge Reddy Jr., MD Work Phone: [facility] 06-23-2023 09:13-0400 Body weight 92.08 kg Jorge Reddy Jr., MD Work Phone: [facility] 06-23-2023 09:13-0400 Diastolic blood pressure 78 mm[Hg] Jorge Reddy Jr., MD Work Phone: [facility] 06-23-2023 09:13-0400 Heart rate 78 /min Jorge Reddy Jr., MD Work Phone: [facility] 06-23-2023 09:13-0400 Respiratory rate 16 /min Jorge Reddy Jr., MD Work Phone: [facility] 06-23-2023 09:13-0400 SaO2% (BldA) [Mass fraction] 96 % Jorge Reddy Jr., MD Work Phone: [facility] 06-23-2023 09:13-0400 Systolic blood pressure 138 mm[Hg] Jorge Reddy Jr., MD Work Phone: [facility] 05-22-2023 14:50-0400 Diastolic blood pressure 82 mm[Hg] Elmag Milad SADLER Work Phone: [facility] 05-22-2023 14:50-0400 Heart rate 74 /min Elmag Cho Work Phone: [facility] 05-22-2023 14:50-0400 Systolic blood pressure 127 mm[Hg] Elmag Cho Work Phone: [facility] 05-22-2023 14:43-0400 Body height 180.3 cm Edinson Stinson MD Work Phone: [facility] 05-22-2023 14:43-0400 Body weight 91.63 kg Edinson Stinson MD Work Phone: [facility] 05-22-2023 14:43-0400 SaO2% (BldA) [Mass fraction] 100 % Edinson Stinson MD Work Phone: [facility] 03-31-2023 11:02-0500 Body weight 92.44 kg Virginia Keshav MONTELONGO Work Phone: [facility] 03-31-2023 11:02-0500 Diastolic blood pressure 86 mm[Hg] Virginia Keshav REJECTOR.STRE[employer] LIGHT REPAIRER HELPER Work Phone: [facility] 03-31-2023 11:02-0500 Heart rate 86 /min Virginia Keshav REJECTOR.STREET LIGHT REPAIRER HELPER Work Phone: [facility] 03-31-2023 11:02-0500 Respiratory rate 16 /min Virginia Keshav REJECTOR.STREET LIGHT REPAIRER HELPER Work Phone: [facility] 03-31-2023 11:02-0500 Systolic blood pressure 138 mm[Hg] Virginia Keshav REJECTOR.STREET LIGHT REPAIRER HELPER Work Phone: [facility] 03-21-2023 13:51-0500 Body weight 92.81 kg Danisha Rajguru REJECTOR.STREET LIGHT REPAIRER HELPER Work Phone: [facility] 03-21-2023 13:51-0500 Diastolic blood pressure 70 mm[Hg] Danisha Rajguru REJECTOR.STREET LIGHT REPAIRER HELPER Work Phone: [facility] 03-21-2023 13:51-0500 Heart rate 80 /min Danisha Rajguru REJECTOR.STRE[employer] LIGHT REPAIRER HELPER Work Phone: [facility] 03-21-2023 13:51-0500 Systolic blood pressure 140 mm[Hg] Danisha Rajguru REJECTOR.STREET LIGHT REPAIRER HELPER Work Phone: [facility] 12-21-2022 15:49-0400 Body weight 91.35 kg Virginia Keshav REJECTOR.STREET LIGHT REPAIRER HELPER Work Phone: [facility] 12-21-2022 15:49-0400 Diastolic blood pressure 78 mm[Hg] Virginia Keshav REJECTOR.STRE[employer] LIGHT REPAIRER HELPER Work Phone: [facility] 12-21-2022 15:49-0400 Heart rate 85 /min Virginia Keshav REJECTOR.STRE[employer] LIGHT REPAIRER HELPER Work Phone: [facility] 12-21-2022 15:49-0400 Respiratory rate 16 /min Virginia Keshav REJECTOR.STREET LIGHT REPAIRER HELPER Work Phone: [facility] 12-21-2022 15:49-0400 SaO2% (BldA) [Mass fraction] 97 % Virginia Keshav REJECTOR.STREET LIGHT REPAIRER HELPER Work Phone: [facility] 12-21-2022 15:49-0400 Systolic blood pressure 130 mm[Hg] Virginia Keshav REJECTOR.STREET LIGHT REPAIRER HELPER Work Phone: [facility] 12-16-2022 10:55-0400 Body weight 92.17 kg Sushant Darrian REJECTOR.STREET LIGHT REPAIRER HELPER Work Phone: [facility] 12-16-2022 10:55-0400 Diastolic blood pressure 78 mm[Hg] Sushant Darrian REJECTOR.STREET LIGHT REPAIRER HELPER Work Phone: [facility] 12-16-2022 10:55-0400 Heart rate 97 /min Sushant Darrian REJECTOR.STREET LIGHT REPAIRER HELPER Work Phone: [facility] 12-16-2022 10:55-0400 Respiratory rate 16 /min Sushant Darrian REJECTOR.STREET LIGHT REPAIRER HELPER Work Phone: [facility] 12-16-2022 10:55-0400 SaO2% (BldA) [Mass fraction] 96 % Sushant Darrian REJECTOR.STREET LIGHT REPAIRER HELPER Work Phone: [facility] 12-16-2022 10:55-0400 Systolic blood pressure 126 mm[Hg] Sushant Darrian REJECTOR.STREET LIGHT REPAIRER HELPER Work Phone: [facility] 10-06-2022 11:33-0400 Body weight 89 kg Virginia Keshav REJECTOR.STREET LIGHT REPAIRER HELPER Work Phone: [facility] 10-06-2022 11:33-0400 Diastolic blood pressure 68 mm[Hg] Virginia Keshav REJECTOR.STREET LIGHT REPAIRER HELPER Work Phone: [facility] 10-06-2022 11:33-0400 Heart rate 87 /min Ivrginia Keshav REJECTOR.STREET LIGHT REPAIRER HELPER Work Phone: [facility] 10-06-2022 11:33-0400 Respiratory rate 16 /min Virginia Lyon REJECTOR.STREET LIGHT REPAIRER HELPER Work Phone: [facility] 10-06-2022 11:33-0400 SaO2% (BldA) [Mass fraction] 98 % Virginia Smallsman REJECTOR.STREET LIGHT REPAIRER HELPER Work Phone: [facility] 10-06-2022 11:33-0400 Systolic blood pressure 104 mm[Hg] Virginia Lyon REJECTOR.STREET LIGHT REPAIRER HELPER Work Phone: [facility] 09-17-2022 [id number] Body height 180.34 cm [facility] 09-17-2022 [id number] Body mass index (BMI) [Ratio] 26.7 kg/m2 [facility] 09-17-2022 01:28-0400 Body temperature 97.8 [degF] [facility] 09-17-2022 01:28-0400 Body weight 86.9 kg [facility] 09-17-2022 01:28-0400 Diastolic blood pressure 56 mm[Hg] [facility] 09-17-2022 01:28-0400 Heart rate 70 /min [facility] 09-17-2022 01:28-0400 Respiratory rate 18 /min [facility] 09-17-2022 01:28-0400 SaO2% (BldA) [Mass fraction] 98 % [facility] 09-17-2022 01:28-0400 Systolic blood pressure 96 mm[Hg] [facility] 09-07-2022 13:29-0400 Body weight 87.09 kg Jessica French REJECTOR.STREET LIGHT REPAIRER HELPER Work Phone: [facility] 09-07-2022 13:29-0400 Diastolic blood pressure 70 mm[Hg] Jessica Riverahof REJECTOR.STREET LIGHT REPAIRER HELPER Work Phone: [facility] 09-07-2022 13:29-0400 Heart rate 70 /min Jessica Riverahof REJECTOR.STREET LIGHT REPAIRER HELPER Work Phone: [facility] 09-07-2022 13:29-0400 Respiratory rate 16 /min Jessica Riverahof REJECTOR.STREET LIGHT REPAIRER HELPER Work Phone: [facility] 09-07-2022 13:29-0400 SaO2% (BldA) [Mass fraction] 98 % Jessica Gillian REJECTOR.STREET LIGHT REPAIRER HELPER Work Phone: [facility] 09-07-2022 13:29-0400 Systolic blood pressure 120 mm[Hg] Jessica Gillian REJECTOR.STREET LIGHT REPAIRER HELPER Work Phone: [facility] 09-05-2022 13:49-0400 Diastolic blood pressure 86 mm[Hg] [facility] 09-05-2022 13:49-0400 Heart rate 53 /min [facility] 09-05-2022 13:49-0400 Respiratory rate 12 /min [facility] 09-05-2022 13:49-0400 SaO2% (BldA) [Mass fraction] 100 % [facility] 09-05-2022 13:49-0400 Systolic blood pressure 169 mm[Hg] [facility] 09-05-2022 12:37-0400 Body mass index (BMI) [Ratio] 26.2 kg/m2 [facility] 09-05-2022 12:37-0400 Body temperature 97.8 [degF] [facility] 09-05-2022 12:37-0400 Body weight 85.4 kg [facility] 12-28-2021 11:00-0500 Diastolic blood pressure 83 mm[Hg] Adam Galvez MD Work Phone: [facility] 12-28-2021 11:00-0500 Heart rate 63 /min Adam Galvez MD Work Phone: [facility] 12-28-2021 11:00-0500 Respiratory rate 16 /min Adam Galvze MD Work Phone: [facility] 12-28-2021 11:00-0500 SaO2% (BldA) [Mass fraction] 94 % Adam Galvez MD Work Phone: [facility] 12-28-2021 11:00-0500 Systolic blood pressure 149 mm[Hg] Adam Galvez MD Work Phone: [facility] 12-28-2021 09:36-0500 Body height 180.3 cm Adam Galvez MD Work Phone: [facility] 12-28-2021 09:36-0500 Body temperature 97.3 [degF] Adam Galvez MD Work Phone: [facility] 12-28-2021 09:36-0500 Body weight 90.72 kg Adam Galvez MD Work Phone: [facility] 11-26-2021 12:32-0400 Body weight 94.17 kg Rosalina Zurawick REJECTOR.STREET LIGHT REPAIRER HELPER Work Phone: [facility] 11-26-2021 12:32-0400 Diastolic blood pressure 62 mm[Hg] Rosalina Zurawick REJECTOR.STREET LIGHT REPAIRER HELPER Work Phone: [facility] 11-26-2021 12:32-0400 Heart rate 60 /min Rosalina Zurawick REJECTOR.STREET LIGHT REPAIRER HELPER Work Phone: [facility] 11-26-2021 12:32-0400 Respiratory rate 14 /min Rosalina Zurawick REJECTOR.STREET LIGHT REPAIRER HELPER Work Phone: [facility] 11-26-2021 12:32-0400 Systolic blood pressure 110 mm[Hg] Rosalina Zurawick REJECTOR.STREET LIGHT REPAIRER HELPER Work Phone: [facility] 11-24-2021 16:30-0400 Body temperature 97.11 [degF] Luz Elena Javan REJECTOR.STREET LIGHT REPAIRER HELPER Work Phone: [facility] 11-24-2021 16:30-0400 Body weight 92.63 kg Luz Elena Javan REJECTOR.STREET LIGHT REPAIRER HELPER Work Phone: [facility] 11-24-2021 16:30-0400 Diastolic blood pressure 78 mm[Hg] Luz Elena Javan REJECTOR.STREET LIGHT REPAIRER HELPER Work Phone: [facility] 11-24-2021 16:30-0400 Heart rate 90 /min Luz Elena Javan REJECTOR.STREET LIGHT REPAIRER HELPER Work Phone: [facility] 11-24-2021 16:30-0400 Respiratory rate 20 /min Luz Elena Javan REJECTOR.STREET LIGHT REPAIRER HELPER Work Phone: [facility] 11-24-2021 16:30-0400 SaO2% (BldA) [Mass fraction] 98 % Luz Elena Javan REJECTOR.STREET LIGHT REPAIRER HELPER Work Phone: [facility] 11-24-2021 16:30-0400 Systolic blood pressure 122 mm[Hg] Luz Elena Javan REJECTOR.STREET LIGHT REPAIRER HELPER Work Phone: [facility] 11-16-2021 14:36-0400 Diastolic blood pressure 90 mm[Hg] Virginia Podlogar REJECTOR.STREET LIGHT REPAIRER HELPER Work Phone: [facility] 11-16-2021 14:36-0400 Heart rate 75 /min Virginia Podlogar REJECTOR.STREET LIGHT REPAIRER HELPER Work Phone: [facility] 11-16-2021 14:36-0400 Systolic blood pressure 144 mm[Hg] Virginia Podlogar REJECTOR.STREET LIGHT REPAIRER HELPER Work Phone: [facility] 11-16-2021 14:10-0400 Body weight 93.8 kg Virginia Podlogar REJECTOR.STREET LIGHT REPAIRER HELPER Work Phone: [facility] 11-16-2021 14:10-0400 Respiratory rate 18 /min Virginia Podlogar REJECTOR.STREET LIGHT REPAIRER HELPER Work Phone: [facility] 11-16-2021 14:10-0400 SaO2% (BldA) [Mass fraction] 98 % Virginia Podlogar REJECTOR.STREET LIGHT REPAIRER HELPER Work Phone: [facility] 11-08-2021 15:58-0400 Body height 182.2 cm Adam Galvez MD Work Phone: [facility] 11-08-2021 15:58-0400 Body weight 92.9 kg Adam Galvez MD Work Phone: [facility] 11-08-2021 15:58-0400 Diastolic blood pressure 77 mm[Hg] Adam Galvez MD Work Phone: [facility] 11-08-2021 15:58-0400 Heart rate 66 /min Adam Galvez MD Work Phone: [facility] 11-08-2021 15:58-0400 SaO2% (BldA) [Mass fraction] 99 % Adam Galvez MD Work Phone: [facility] 11-08-2021 15:58-0400 Systolic blood pressure 137 mm[Hg] Adam Galvez MD Work Phone: [facility] 10-20-2021 15:09-0400 Body weight 91.17 kg Rosalina Zurawick REJECTOR.STREET LIGHT REPAIRER HELPER Work Phone: [facility] 10-20-2021 15:09-0400 Diastolic blood pressure 60 mm[Hg] Rosalina Zurawick REJECTOR.STREET LIGHT REPAIRER HELPER Work Phone: [facility] 10-20-2021 15:09-0400 Heart rate 72 /min Rosalina Zurawick REJECTOR.STREET LIGHT REPAIRER HELPER Work Phone: [facility] 10-20-2021 15:09-0400 Respiratory rate 16 /min Rosalina Zurawick REJECTOR.STREET LIGHT REPAIRER HELPER Work Phone: [facility] 10-20-2021 15:09-0400 Systolic blood pressure 100 mm[Hg] Rosalina Zurawick REJECTOR.STREET LIGHT REPAIRER HELPER Work Phone: [facility] 09-27-2021 09:00-0400 Body temperature 97.5 [degF] Dr. Jules Haynes Work Phone: [facility] Work Phone: 09-27-2021 09:00-0400 Diastolic blood pressure 88 mm[Hg] Dr. Jules Haynes Work Phone: [facility] Work Phone: 09-27-2021 09:00-0400 Heart rate 61 /min Dr. Jules Haynes Work Phone: [facility] Work Phone: 09-27-2021 09:00-0400 Respiratory rate 18 /min Dr. Jules Haynes Work Phone: [facility] Work Phone: 09-27-2021 09:00-0400 SaO2% (BldA) [Mass fraction] 98 % Dr. Jules Haynes Work Phone: [facility] Work Phone: 09-27-2021 09:00-0400 Systolic blood pressure 125 mm[Hg] Dr. Jules Haynes Work Phone: [facility] Work Phone: 09-25-2021 22:30-0400 Body temperature 97.7 [degF] Dr. Jules Haynes Work Phone: [facility] Work Phone: 09-25-2021 22:30-0400 Diastolic blood pressure 76 mm[Hg] Dr. Jules Haynes Work Phone: [facility] Work Phone: 09-25-2021 22:30-0400 Heart rate 72 /min Dr. Jules Haynes Work Phone: [facility] Work Phone: 09-25-2021 22:30-0400 Respiratory rate 18 /min Dr. Jules Haynes Work Phone: [facility] Work Phone: 09-25-2021 22:30-0400 SaO2% (BldA) [Mass fraction] 92 % Dr. Jules Haynes Work Phone: [facility] Work Phone: 09-25-2021 22:30-0400 Systolic blood pressure 136 mm[Hg] Dr. Jules Haynes Work Phone: [facility] Work Phone: 09-25-2021 22:28-0400 Body height 180.[address] Jules Haynes Work Phone: [facility] Work Phone: 09-25-2021 22:28-0400 Body mass index (BMI) [Ratio] 27.5 kg/m2 Dr. Jules Haynes Work Phone: [facility] Work Phone: 09-25-2021 22:28-0400 Body weight 89.[address] Jules Haynes Work Phone: [facility] Work Phone: 07-27-2021 08:02-0400 Body temperature 97.39 [degF] Mariana Weller APRN.STREET LIGHT REPAIRER HELPER Work Phone: [facility] 07-27-2021 08:02-0400 Body weight 91.26 kg Mariana Weller APRN.STREET LIGHT REPAIRER HELPER Work Phone: [facility] 07-27-2021 08:02-0400 Diastolic blood pressure 80 mm[Hg] Mariana Weller APRN.STREET LIGHT REPAIRER HELPER Work Phone: [facility] 07-27-2021 08:02-0400 Heart rate 70 /min Mariana Weller APRN.STREET LIGHT REPAIRER HELPER Work Phone: [facility] 07-27-2021 08:02-0400 Respiratory rate 16 /min Mariana Weller APRN.STREET LIGHT REPAIRER HELPER Work Phone: [facility] 07-27-2021 08:02-0400 SaO2% (BldA) [Mass fraction] 95 % Mariana Weller APRN.STREET LIGHT REPAIRER HELPER Work Phone: [facility] 07-27-2021 08:02-0400 Systolic blood pressure 138 mm[Hg] Mariana Weller APRN.STREET LIGHT REPAIRER HELPER Work Phone: [facility] 07-26-2021 16:09-0400 Body temperature 97.59 [degF] Katherin English APRN.STREET LIGHT REPAIRER HELPER Work Phone: [facility] 07-26-2021 16:09-0400 Body weight 91.26 kg Katherin English APRN.STREET LIGHT REPAIRER HELPER Work Phone: [facility] 07-26-2021 16:09-0400 Diastolic blood pressure 76 mm[Hg] Katherin Praisler-Wood REJECTOR.STREET LIGHT REPAIRER HELPER Work Phone: [facility] 07-26-2021 16:09-0400 Heart rate 103 /min Katherin Praisler-Wood REJECTOR.STREET LIGHT REPAIRER HELPER Work Phone: [facility] 07-26-2021 16:09-0400 Respiratory rate 20 /min Katherin Praisler-Wood REJECTOR.STREET LIGHT REPAIRER HELPER Work Phone: [facility] 07-26-2021 16:09-0400 SaO2% (BldA) [Mass fraction] 95 % Katherin Praisler-Wood REJECTOR.STREET LIGHT REPAIRER HELPER Work Phone: [facility] 07-26-2021 16:09-0400 Systolic blood pressure 110 mm[Hg] Katherin Praisler-Wood REJECTOR.STREET LIGHT REPAIRER HELPER Work Phone: [facility] Encounters Encounter Date Encounter Type Care Provider Facility Start: 10-05-2024 End: 10-05-2024 Emergency department patient visit Dr. Jules Haynes DO Work Phone: -Emergency Department Work Phone: Start: 10-01-2024 End: 10-01-2024 ambulatory CLEMENCIA PRICE Facility:[id number] Start: 09-17-2024 End: 09-17-2024 Telephone encounter Clemencia Price MD Work Phone: Urology Comment on above: Surgery Start: 09-16-2024 End: 09-16-2024 ambulatory JULES HAYNES Facility:[facility] Start: 09-16-2024 End: 09-16-2024 Patient encounter procedure Clemencia Price MD Work Phone: Urology Comment on above: Hematuria, unspecifi ed type [R31.9] (Primary Dx); Gross hematuria; Benign prostatic hyperplasia with weak urinary stream; Incomplete bladder emptying Start: 09-16-2024 End: 09-16-2024 ambulatory CLEMENCIA PRICE Facility:[id number] Start: 09-13-2024 End: 09-13-2024 Telephone encounter Clemencia Price MD Work Phone: Urology Comment on above: Surgery Start: 09-09-2024 End: 09-09-2024 ambulatory CLARISSE JAYE Facility:[facility] Start: 09-06-2024 End: 09-06-2024 Telephone encounter Clemencia Price MD Work Phone: Urology Start: 09-05-2024 End: 09-06-2024 Telephone encounter Klaus Ordonez MD Work Phone: Urology Comment on above: Appointment Start: 09-04-2024 End: 09-04-2024 Subsequent hospital visit by physician [facility] (I-Stat) Work Phone: Cat Scan Comment on above: Gross hematuria [R31 .0] Start: 09-04-2024 End: 09-04-2024 ambulatory CLARISSE CEE Facility:[facility] Start: 09-03-2024 End: 09-03-2024 Telephone encounter Clarisse Cee PA-C Work Phone: Urology Comment on above: Orders Start: 08-27-2024 End: 08-30-2024 Follow-up encounter Clarisse Cee PA-C Work Phone: Urology Comment on above: Results Start: 08-21-2024 End: 08-21-2024 Refill Jules Haynes DO Work Phone: [facility] Comment on above: Refill Request Start: 08-20-2024 End: 08-20-2024 Patient encounter procedure Clarisse Cee PA-C Work Phone: Urology Comment on above: Gross hematuria (Helen teresa Dx); Screening for genitourinary condition; Personal history of kidney stones; Benign prostatic hyperplasia with weak urinary stream Start: 08-20-2024 End: 08-20-2024 ambulatory CLARISSE CEE Facility:[facility] Start: 08-19-2024 End: 08-21-2024 Telephone encounter Clarisse Cee PA-C Work Phone: Urology Comment on above: Request Outside [facility] Records Start: 08-18-2024 End: 08-18-2024 Emergency department patient visit Dr. Jules Haynes DO Work Phone: -Emergency Department Work Phone: Start: 08-18-2024 End: 08-20-2024 Refill Jorge Reddy MD Work Phone: Neurology Comment on above: Refill Request Start: 08-12-2024 End: 08-12-2024 Patient encounter procedure Sushant Darrian REJECTOR.STREET LIGHT REPAIRER HELPER Work Phone: Neurology Comment on above: RBD (REM behavioral disorder) (Primary Dx); Obstructive sleep apnea Start: 08-12-2024 End: 08-12-2024 ambulatory SUSHANT DARRIAN Facility:[facility] Start: 08-05-2024 End: 08-08-2024 Refill Sushant Darrian REJECTOR.STRE[employer] LIGHT REPAIRER HELPER Work Phone: Neurology Comment on above: Prescription Refills Start: 08-04-2024 End: 08-04-2024 ambulatory JULES HAYNES Facility:[facility] Start: 08-04-2024 End: 08-04-2024 Office outpatient new 30 minutes Kenji Marr PA-C Work Phone: [facility] Comment on above: Dog bite of left salo d, initial encounter (Primary Dx) Start: 08-02-2024 End: 08-08-2024 ambulatory Jules Haynes DO Work Phone: [facility] [place] Comment on above: Klonopin Refill Request (/) Start: 08-01-2024 End: 08-02-2024 Refill Sushant Darrian REJECTOR.STREET LIGHT REPAIRER HELPER Work Phone: Neurology Comment on above: Refill Request Start: 05-21-2024 End: 05-21-2024 Refill Jules Haynes DO Work Phone: [facility] [place] Comment on above: Refill Request Start: 05-12-2024 End: 05-13-2024 Refill Kenji Mann MD Work Phone: [facility] [place] Comment on above: Refill Request Start: 04-08-2024 End: 04-09-2024 Telephone encounter Jules Haynes DO Work Phone: [facility] [place] Start: 04-06-2024 End: 04-08-2024 Refill Jorge Reddy MD Work Phone: Neurology Comment on above: Refill Request Request new prescrip tion Start: 03-25-2024 End: 03-25-2024 ambulatory JULES HAYNES Facility:[facility] Start: 03-25-2024 End: 03-25-2024 Patient encounter procedure Jules Haynes DO Work Phone: [facility] [place] Comment on above: Fatigue, unspecified type (Primary Dx); Need for influenza vaccination; BOBBY (obstructive sleep apnea); Anxiety with depression; RBD (REM behavioral disorder); PLMD (periodic limb movement disorder) Start: 02-19-2024 End: 02-19-2024 Refill Jorge Reddy MD Work Phone: Neurology Comment on above: Refill Request Start: 02-12-2024 End: 02-12-2024 Refill Jules Haynes DO Work Phone: [facility] [place] Comment on above: Refill Request Start: 01-11-2024 End: 01-12-2024 Refill Rosalina Albarado Eddie REGALADO.STREET LIGHT REPAIRER HELPER Work Phone: [facility] Comment on above: Refill Request Start: 01-08-2024 End: 01-08-2024 ambulatory JULES HAYNES Facility:[facility] Start: 01-08-2024 End: 01-08-2024 Patient encounter procedure Jorge Reddy MD Work Phone: Neurology Comment on above: Obstructive sleep ap ramírez (adult) (pediatric) (Primary Dx); High risk medication use; RBD (REM behavioral disorder); PLMD (periodic limb movement disorder); Shift work sleep disorder Start: 12-11-2023 End: 12-11-2023 Patient encounter procedure Sushant Colmenares APRN.STREET LIGHT REPAIRER HELPER Work Phone: Neurology Comment on above: RBD (REM behavioral disorder) (Primary Dx) Start: 12-11-2023 End: 12-11-2023 ambulatory JULES HAYNES Facility:[facility] Start: 12-09-2023 End: 12-10-2023 Refill Jules Haynes DO Work Phone: [facility] [place] Comment on above: Refill Request (Clon azepam ) Start: 11-27-2023 End: 11-27-2023 Telephone encounter Madhavi Perea DMD Work Phone: Dentistry Comment on above: Appointment Start: 11-01-2023 End: 11-01-2023 Telephone encounter Jorge Reddy MD Work Phone: Neurology Comment on above: Patient Update Start: 10-25-2023 End: 10-25-2023 Telephone encounter Jorge Reddy MD Work Phone: Neurology Start: 09-19-2023 End: 09-19-2023 Patient encounter procedure Danisha Delarosa APRN.STREET LIGHT REPAIRER HELPER Work Phone: Psychiatry Comment on above: NO [...] encounter procedure Jules Haynes DO Work Phone: [facility] [place] Comment on above: Well adult exam (Helen teresa Dx); Anxiety with depression; Vision abnormalities; Major depressive disorder, recurrent episode, moderate (HCC); BOBBY (obstructive sleep apnea); Fatigue, unspecified type; Subclinical hypothyroidism; Hypercholesteremia; Nightmares Start: 07-31-2023 End: 07-31-2023 Patient encounter status Jules Haynes DO Work Phone: [facility] Work Phone: Start: 06-27-2023 End: 06-27-2023 Patient encounter procedure Danisha Delarosa REJECTOR.STREET LIGHT REPAIRER HELPER Work Phone: Psychiatry Comment on above: PTSD (post-traumatic stress disorder) (Primary Dx); CHRISTOPHER (generalized anxiety disorder); Marijuana use; Alcohol use Start: 06-23-2023 End: 06-23-2023 Patient encounter procedure Jorge Reddy MD Work Phone: Neurology Comment on above: BOBBY (obstructive sle ep apnea) (Primary Dx); RBD (REM behavioral disorder); PLMD (periodic limb movement disorder) Start: 05-31-2023 Refill Jessica French REJECTOR.STREET LIGHT REPAIRER HELPER Work Phone: [facility] [place] Comment on above: Refill Request Start: 05-22-2023 End: 05-22-2023 Patient encounter procedure Edinson Stinson MD Work Phone: [facility] Cardi[facility] Comment on above: Bilateral carotid ar fadumo stenosis (Primary Dx); Pure hypercholesterolemia; 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); Sleep apnea, unspecified type; Aneurysm of ascending aorta without rupture (HCC) Start: 03-31-2023 ambulatory Suhsant Darrian REJECTOR.STREET LIGHT REPAIRER HELPER Work Phone: Neurology Comment on above: Oralia Sushant Start: 03-31-2023 End: 03-31-2023 Patient encounter procedure Virginia Lyon REJECTOR.STREET LIGHT REPAIRER HELPER Work Phone: [facility] [place] Comment on above: Fatigue, unspecified type (Primary Dx); BOBBY (obstructive sleep apnea); Vivid dream; Nightmares; Restless sleeper; Night sweats; Alcohol abuse Start: 03-27-2023 Telephone encounter Jules lopez DO Work Phone: [facility] [place] Comment on above: Patient Question Start: 03-25-2023 ambulatory Jules diana DO Work Phone: [facility] [place] Comment on above: lab work Start: 03-21-2023 End: 03-21-2023 Patient encounter procedure Danisha Delarosa APRN.STREET LIGHT REPAIRER HELPER Work Phone: Psychiatry Comment on above: PTSD (post-traumatic stress disorder) (Primary Dx); CHRISTOPHER (generalized anxiety disorder); Marijuana use; Alcohol use; Night terrors Start: 01-30-2023 Orders Only Edinson Stinson MD Work Phone: [facility] Comment on above: Abdominal aortic emb olism (HCC) (Primary Dx) Start: 01-09-2023 End: 01-09-2023 Patient encounter procedure Danisha Guadalupe Delarosa APRN.STREET LIGHT REPAIRER HELPER Work Phone: Psychiatry Comment on above: APPOINTMENT CANCELLE D (Primary Dx) Start: 01-09-2023 End: 01-09-2023 Telemedicine consultation with patient Danisha Lopezguru REGALADO.STREET LIGHT REPAIRER HELPER Work Phone: [facility] [place] Start: 12-26-2022 End: 12-26-2022 [facility] Danisha Guadalupe [place] REGALADO.STREET LIGHT REPAIRER HELPER Work Phone: Psychiatry Comment on above: CHRISTOPHER (generalized anx iety disorder) (Primary Dx); Major depressive disorder, recurrent episode, moderate (HCC); Night terrors; Marijuana use; Alcohol use Start: 12-21-2022 End: 12-21-2022 Patient encounter procedure Virginia Lyon APRN.STREET LIGHT REPAIRER HELPER Work Phone: [facility] Comment on above: BPPV (benign paroxys mal positional vertigo), unspecified laterality (Primary Dx); Dizzy; Nausea Start: 12-19-2022 Refill Jules Israel son DO Work Phone: [facility] [place] Start: 12-16-2022 End: 12-16-2022 Patient encounter procedure Sushant Colmenares REJECTOR.STREET LIGHT REPAIRER HELPER Work Phone: Neurology Comment on above: BOBBY (obstructive sle ep apnea) (Primary Dx); Excessive daytime sleepiness; Dream enactment behavior Start: 12-15-2022 Telephone encounter Zulay fraga [facility] Work Phone: Psychology Comment on above: consult Start: 12-01-2022 Telephone encounter Virginia Melchor REJECTOR.STREET LIGHT REPAIRER HELPER Work Phone: [facility] Start: 11-24-2022 Refill Rosalina Morgan REJECTOR.STREET LIGHT REPAIRER HELPER Work Phone: [facility] Comment on above: Refill Request Start: 11-15-2022 End: 11-16-2022 ambulatory JULES HAYNES Facility:[facility] Start: 11-01-2022 End: 11-01-2022 Patient encounter procedure Nando Sanchez MD Work Phone: Otolaryngology Comment on above: Impaired auditory di scrimination, left (Primary Dx); Closed fracture of nasal bone, initial encounter; Chronic rhinitis; Deviated nasal septum Start: 10-06-2022 Telephone encounter Virginia Melchor REJECTOR.STREET LIGHT REPAIRER HELPER Work Phone: [facility] Comment on above: Appointment Start: 10-06-2022 End: 10-06-2022 Patient encounter procedure Virginiacindy Lyon REJECTOR.STREET LIGHT REPAIRER HELPER Work Phone: [facility] Comment on above: Nightmares (Primary Dx); Fatigue, unspecified type; Chronic insomnia; Restless sleeper; BOBBY (obstructive sleep apnea) Start: 09-17-2022 End: 09-17-2022 Emergency department patient visit [facility] Work Phone: Start: 09-07-2022 End: 09-07-2022 Patient encounter procedure Jessica French REJECTOR.STREET LIGHT REPAIRER HELPER Work Phone: [facility] Comment on above: Hospital discharge f ollow-up (Primary Dx); Abdominal cramping; Night sweats; GERD without esophagitis; Anxiety with depression Start: 09-05-2022 End: 09-05-2022 Emergency department patient visit [facility] Work Phone: Start: 06-17-2022 End: 06-17-2022 ambulatory Adam Galvez MD Work Phone: Gastroenterology Comment on above: Lower esophageal rin g (Fernando) (Primary Dx) Start: 06-17-2022 End: 06-17-2022 Telemedicine consultation with patient Adam Galvez MD Work Phone: [facility] Start: 01-31-2022 Refill Rosalina Sherroman ko REJECTOR.STREET LIGHT REPAIRER HELPER Work Phone: [facility] [place] Comment on above: Refill Request Start: 01-05-2022 End: 01-05-2022 ambulatory Virginia Lyon REJECTOR.STREET LIGHT REPAIRER HELPER Work Phone: [facility] [place] Comment on above: Anxiety with depress ion (Primary Dx); Nightmares Start: 01-05-2022 End: 01-05-2022 Telemedicine consultation with patient Virginia Lyon SABINE.STREET LIGHT REPAIRER HELPER Work Phone: [facility] [place] Start: 12-28-2021 End: 12-28-2021 Subsequent hospital visit by physician Adam Galvez MD Work Phone: Gastroenterology Comment on above: Esophageal dysphagia [R13.19] Start: 12-21-2021 Telephone encounter Damaris Norton RNdesign architect Comment on above: Appointment Start: 11-26-2021 End: 11-26-2021 Patient encounter procedure Rosalina Perez APRN.STREET LIGHT REPAIRER HELPER Work Phone: [facility] [place] Comment on above: Tinea corporis (Prim mik Dx); Urinary frequency; Anxiety with depression; Situational anxiety Start: 11-24-2021 End: 11-24-2021 Patient encounter procedure Luz Elena Edouard REJECTOR.STREET LIGHT REPAIRER HELPER Work Phone: [facility] Comment on above: Tinea corporis (Prim mik Dx) Start: 11-16-2021 End: 11-16-2021 Patient encounter procedure Virginia Horner REJECTOR.STREET LIGHT REPAIRER HELPER Work Phone: [facility] [place] Comment on above: Stabbing pain (Prima ry Dx); Elevated BP without diagnosis of hypertension Start: 11-08-2021 End: 11-08-2021 Patient encounter procedure Adam Galvez MD Work Phone: Gastroenterology Comment on above: Esophageal dysphagia (Primary Dx); Irritable bowel syndrome with diarrhea Start: 10-27-2021 Telephone encounter Rosalina henriquez REJECTOR.STREET LIGHT REPAIRER HELPER Work Phone: [facility] Comment on above: Results Results (radiology) Start: 10-27-2021 End: 10-27-2021 Subsequent hospital visit by physician [facility] Work Phone: Radiology Comment on above: Subclinical hypothyr oidism [E03.8] Start: 10-21-2021 ambulatory Rosalina Willie k REJECTOR.STREET LIGHT REPAIRER HELPER Work Phone: [facility] Comment on above: Test Results Start: 10-21-2021 Telephone encounter Rosalina henriquez REJECTOR.STREET LIGHT REPAIRER HELPER Work Phone: [facility] Comment on above: Results Start: 10-20-2021 End: 10-20-2021 Patient encounter procedure Rosalina Perez REJECTOR.STREET LIGHT REPAIRER HELPER Work Phone: [facility] Comment on above: Fatigue, unspecified type (Primary Dx); Cellulitis of left lower extremity; Esophageal dysphagia; Subclinical hypothyroidism; Hypercholesteremia; Urinary frequency; Irritable bowel syndrome with diarrhea Start: 09-27-2021 Non-patient / Non-visit Dr. Jules Haynes Work Phone: [facility] Start: 09-26-2021 Non-patient / Non-visit Dr. Jules Haynes Work Phone: [facility] Start: 09-25-2021 Non-patient / Non-visit Dr. Jules Haynes Work Phone: [facility] Start: 09-25-2021 End: 09-27-2021 Evaluation and management of inpatient Dr. Jules Haynes Work Phone: [facility] Start: 09-25-2021 ambulatory Za Oliveira RN NU RSE SPOOLER [employer]BBER [employer]AND Comment on above: Puncture Wound (Step ped on chato nail 09/24/21) Start: 07-27-2021 End: 07-27-2021 Patient encounter procedure Mariana Weller REJECTOR.STREET LIGHT REPAIRER HELPER Work Phone: [facility] Comment on above: Visit for wound chec k (Primary Dx) Start: 07-26-2021 End: 07-26-2021 Patient encounter procedure Katherin English REJECTOR.STREET LIGHT REPAIRER HELPER Work Phone: [facility] Comment on above: Laceration of left f orearm, initial encounter (Primary Dx) Start: 02-28-2020 End: 02-28-2020 Subsequent hospital visit by physician Xr [facility] [place] Work Phone: Radiology Comment on above: Chest tightness [R07 .89] Procedures Date Procedure Procedure Detail Performing Clinician Start: 10-05-2024 Urnls dip stick/tabl et reagent auto microscopy Dr. Jules Haynes DO Work Phone: Start: 10-05-2024 Computed tomography of abdomen and pelvis with contrast Dr. Jules Haynes DO Work Phone: Start: 10-05-[address] Jules Haynes DO Work Phone: Start: 09-16-2024 Urnls dip stick/tabl et rgnt [...] stick/tabl et rgnt auto w/o microscopy Clarisse BURGESS-C Work Phone: Start: 08-18-2024 Urnls dip stick/tabl et reagent auto microscopy Dr. Jules Haynes DO Work Phone: Start: 08-18-[address] Jules Haynes DO Work Phone: Start: 08-18-2024 CT of abdomen and pe lvis without contrast Dr. Jules Haynes DO Work Phone: Start: 08-18-[address] Stephen Haynes DO Work Phone: Start: 05-22-2023 Lipid [...] Work Phone: Start: 07-09-2020 Colonoscopy Katherin Cullen REJECTOR.STREET LIGHT REPAIRER HELPER Work Phone: Start: 02-28-2020 Radiologic exam ches t 2 views Virginia Lyon REJECTOR.STREET LIGHT REPAIRER HELPER Work Phone: Plan of Treatment Date Care Activity Detail Author Start: 2033 RSV Vaccine (1 - 1-dose 75+ series) RSV Vaccine (1 - 1-dose 75+ series) [facility] Start: 09-26-2031 Urine microalbumin profile DTaP,Tdap,Td Vaccine (3 - Td or Tdap) [facility] Start: 09-16-2029 Lipid panel Lipid Screening [facility] Start: 09-16-2029 Prostate specific antigen measurement Prostate Cancer Screening Discussion [facility] Start: 07-30-2029 Urine microalbumin profile [facility] Start: 05-21-2028 Lipid panel Lipid Screening [facility] Start: 09-17-2027 Diabetes Screening Diabetes Screening [facility] Start: 10-23-2026 Lipid 1996 panel - Serum or Plasma Lipid Screening [facility] Start: 10-23-2026 Lipid panel Lipid Screening [facility] Start: 10-23-2026 LIPID SCREEN LIPID SCREEN [facility] Start: 10-20-2026 LIPID SCREEN LIPID SCREEN [facility] Start: 10-20-2026 PROSTATE CANCER SCREENING DISCUSSION PROSTATE CANCER SCREENING DISCUSSION [facility] Start: 10-20-2026 Prostate specific antigen measurement Prostate Cancer Screening Discussion [facility] Start: 07-30-2026 Diabetes Screening Diabetes Screening [facility] Start: 03-29-2026 Diabetes Screening Diabetes Screening [facility] Start: 09-12-2025 DIABETES SCREEN DIABETES SCREEN [facility] Start: 09-12-2025 Diabetes Screening Diabetes Screening [facility] Start: 07-09-2025 Colonoscopy COLONOSCOPY [facility] Start: 07-09-2025 COLORECTAL CANCER SCREENING COLORECTAL CANCER SCREENING [facility] Start: 07-09-2025 Screening for malignant neoplasm of colon [facility] Start: 03-31-2025 End: 03-31-2025 Patient encounter procedure 03/31/2025 10:40 AM EST Office Visit Neurology [address] [place], [place] [address] Jorge Reddy Jr., MD [address] [place] [address] [phone] 6 mo follow up Neurology Comment on above: 6 mo follow up Start: 03-25-2025 Annual PCP Team Chronic Disease Visit Annual PCP Team Chronic Disease Visit [facility] Start: 03-25-2025 Covid-19 Vaccine ( season) Covid-19 Vaccine ( season) [facility] Comment on above: Postponed from 10/22/2023 (Declined at t his time) Start: 03-10-2025 End: 03-10-2025 Follow-up encounter 03/10/2025 9:20 AM EST [facility] Neu[facility] [address] [facility] [place] [address] Jorge Reddy Jr., MD [address] [place] [address] [phone] 6 month follow up Neurology Comment on above: 6 month follow up Start: 11-12-2024 End: 02-11-2025 TOXICOLOGY SCREEN, ROUTINE URINE TOXICOLOGY SCREEN, ROUTINE URINE Lab Routine RBD (REM behavioral disorder) Expected: 11/12/2024 (Approximate), Expires: 02/11/2025 [facility] Work Phone: Comment on above: Expected: 11/12/2024 (Approximate), Expi res: 02/11/2025 Start: 11-12-2024 End: 11-12-2024 ambulatory 11/12/2024 9:00 AM EDT Results Only [facility] [address] [place], [place] [id number] [facility] Start: 10-22-2024 End: 10-22-2024 Patient encounter procedure 10/22/2024 12:00 PM EDT Office Visit Urology [address] [place] [address] Shruthi Rosenberg, REJECTOR.STREET LIGHT REPAIRER HELPER [address] [place] [address] post op cysto Urology Comment on above: post op cysto Start: 10-21-2024 Influenza vaccination Influenza Vaccine (#1) [facility] Start: 10-20-2024 DIABETES SCREEN DIABETES SCREEN [facility] Start: 10-05-2024 Bacteria identified in Urine by Culture Urine Culture [facility] Start: 10-05-2024 End: 10-05-2024 [facility] Start: 10-02-2024 End: 10-02-2024 Patient encounter procedure 10/02/2024 6:00 PM EDT Office Visit [facility] Medicine [place] [address] [place], [place] [id number] Alicia River, REJECTOR.STREET LIGHT REPAIRER HELPER [address] [place], [place] [phone] medication review with labs [facility] Comment on above: medication review with labs Start: 10-01-2024 End: 10-01-2024 Admission to same day surgery center 10/01/2024 1:45 PM EDT - 10/01/2024 2:35 PM EDT Surgery [facility] Surgery [facility] [place] [address] [place] [address] [place] [address] [place] [address] CYSTOSCOPY [facility] Surgery Comment on above: CYSTOSCOPY Start: 10-01-2024 End: 10-01-2024 Cystourethroscopy CYSTOSCOPY Gross hematuria 10/01/2024 1:45 PM EDT MR OR Start: 10-01-2024 Subsequent hospital visit by physician 10/01/2024 1:45 PM EDT Hospital Encounter [facility] Surgery [facility] [place] [address] Clemencia Price MD [address] [place] [address] [place] [address] Gross hematuria [R31.0] [facility] Comment on above: Gross hematuria [R31.0] Start: 09-16-2024 End: 09-16-2024 ambulatory 09/16/2024 1:00 PM EDT Results Only [facility] [address] [place] [address] [facility] Start: 09-16-2024 End: 09-16-2024 Patient encounter procedure 09/16/2024 10:30 AM EDT Office Visit Urology [address] [place] [address] [place] [address] Clemencia Price MD [address] [place] [address] [place] [address] discuss cysto--per Dr. Price Urology Comment on above: discuss cysto--per Dr. Price Start: 09-10-2024 End: 09-10-2024 Patient encounter procedure 09/10/2024 8:00 AM EDT Office Visit Urology [address] [place], [place] [address] [address] Klaus Ordonez MD [address] [place] [address] cysto Urology Comment on above: cysto Start: 09-09-2024 End: 09-09-2024 ambulatory 09/09/2024 10:00 AM EDT Results Only [place] [facility] [address] [place] [address] [facility] Start: 09-04-2024 End: 09-04-2024 Patient encounter procedure 09/04/2024 3:00 PM EDT Appointment Cat Scan [address] [place] [address] UROGRAM Cat Scan Comment on above: UROGRAM Start: 09-04-2024 End: 09-04-2024 ambulatory 09/04/2024 2:00 PM EDT Results Only [place] Yeoman [facility] Laboratory [address] [place] [address] STAT LABS [facility] Comment on above: STAT LABS Start: 09-03-2024 End: 12-03-2024 Creatinine and Glomerular filtration rate.predicted panel - Serum, Plasma or Blood CREATININE BLD Lab Routine Gross hematuria Expected: 09/03/2024, Expires: 12/03/2024 [facility] Work Phone: Comment on above: Expected: 09/03/2024, Expires: Start: 08-27-2024 End: 09-19-2025 CT Kidney WO and W contrast IV CT UROGRAM WO/W IVCON Radiology Routine Gross hematuria Expected: 08/27/2024 (Approximate), Expires: 09/19/2025 [facility] Comment on above: Expected: 08/27/2024 (Approximate), Expi res: 09/19/2025 Start: 08-27-2024 Cystourethroscopy CYSTO.PANENDO Procedures Routine Gross hematuria Expected: 08/27/2024 (Approximate) [facility] Comment on above: Expected: 08/27/2024 (Approximate) Start: 08-27-2024 End: 08-27-2024 Orders Only 08/27/2024 Orders Only Urology [address] [place] [address] Clarisse Cee PA-C [address] [place] [address] Gross hematuria Urology Comment on above: Gross hematuria Start: 08-18-2024 End: 08-18-2024 [facility] Start: 08-12-2024 End: 08-12-2024 Patient encounter procedure 08/12/2024 1:30 PM EDT Office Visit Neurology [address] [place] [address] [address]STREET LIGHT REPAIRER HELPER [address] [place] [address] Medication follow up Neurology Comment on above: Medication follow up Start: 07-30-2024 Annual PCP Team Chronic Disease Visit Annual PCP Team Chronic Disease Visit [facility] Start: 07-30-2024 LIPID SCREEN LIPID SCREEN [facility] Start: 07-30-2024 PROSTATE CANCER SCREENING DISCUSSION PROSTATE CANCER SCREENING DISCUSSION [facility] Start: 04-22-2024 End: 04-22-2024 Patient encounter procedure 04/22/2024 1:50 PM EST Office Visit Dentistry [address] [address] Madhavi Perea, CRISTI [address] [place] [address] BOBBY Dentistry Comment on above: BOBBY Start: 03-31-2024 Annual PCP Team Chronic Disease Visit Annual PCP Team Chronic Disease Visit [facility] Start: 03-24-2024 DIABETES SCREEN DIABETES SCREEN [facility] Start: 02-21-2024 Advance Directive Discussion Advance Directive Discussion [facility] Start: 01-15-2024 End: 01-15-2024 Patient encounter procedure Neurology Comment on above: Refill on medication Refill on medication , KAL 7.10.24 [facility]- see TE 11/01/23 Start: 01-08-2024 End: 04-08-2024 BENZO CONFIRM, URINE [facility] Work Phone: Comment on above: Expected: 01/08/2024, Expires: Start: 12-22-2023 Annual PCP Team Chronic Disease Visit Annual PCP Team Chronic Disease Visit [facility] Start: 12-11-2023 End: 12-11-2023 Patient encounter procedure 12/11/2023 1:30 PM EDT Office Visit Neurology [address] [place] [address] Sushant Colmenares, SABINE.STREET LIGHT REPAIRER HELPER [address] [place] [address] extreme dreams, sleep walking per [facility] Neurology Comment on above: extreme dreams, sleep walking per [facility] Start: 12-10-2023 Annual PCP Team Chronic Disease Visit Annual PCP Team Chronic Disease Visit [facility] Start: 10-22-2023 Covid-19 Vaccine ( season) Covid-19 Vaccine ( season) [facility] Start: 10-22-2023 Covid-19 Vaccine ( season) Covid-19 Vaccine ( season) [facility] Start: 10-22-2023 Influenza vaccination Influenza Vaccine (#1) [facility] Start: 10-07-2023 ANNUAL PCP TEAM CHRONIC DISEASE VISIT ANNUAL PCP TEAM CHRONIC DISEASE VISIT [facility] Start: 10-06-2023 End: 10-06-2023 Patient encounter procedure 10/06/2023 10:40 AM EDT Office Visit [facility] [address] [place] [address] Jules Haynes, [address] [place] [address] Re cardiology appt with Dr Stinson 05/22/23. cpap altern [facility] Comment on above: Re cardiology appt with Dr Stinson 05/22/23. c pap altern Start: 09-19-2023 End: 09-19-2023 Patient encounter procedure 09/19/2023 1:00 PM EDT Office Visit Psychiatry [address] [place] [phone] Danisha Delarosa, REJECTOR.STREET LIGHT REPAIRER HELPER [address] [place] [phone] 3 month follow up Psychiatry Comment on above: 3 month follow up Start: 09-08-2023 ANNUAL PCP TEAM CHRONIC DISEASE VISIT ANNUAL PCP TEAM CHRONIC DISEASE VISIT [facility] Start: 08-30-2023 End: 08-30-2023 Patient encounter procedure 08/30/2023 8:00 AM EDT Office Visit Neurology [address] [facility] [address] [place] [address] Jorge Reddy Jr., MD [address] [facility] [address] [place] [phone] BOBBY (obstructive sleep apnea) [G47.33] Neurology Comment on above: BOBBY (obstructive sleep apnea) [G47.33] Start: 08-15-2023 End: 08-15-2023 Patient encounter procedure 08/15/2023 1:00 PM EDT Office Visit [facility] Ophthalmology [address] [place], [place] [address] Isadora Brown, OD [address] [address] Vision abnormalities [H53.9] Ophthalmology Comment on above: Vision abnormalities [H53.9] Start: 07-31-2023 End: 10-30-2023 C reactive protein [Mass/volume] in Serum or Plasma [facility] Comment on above: Expected: 07/31/2023, Expires: Start: 07-31-2023 End: 10-30-2023 Comprehensive metabolic 2000 panel - Serum or Plasma [facility] Comment on above: Expected: 07/31/2023, Expires: Start: 07-31-2023 End: 10-30-2023 Hemoglobin A1c in Blood [facility] Work Phone: Comment on above: Expected: 07/31/2023, Expires: Start: 06-27-2023 End: 06-27-2023 Patient encounter procedure 06/27/2023 11:30 AM EDT Office Visit Psychiatry [address] [place] [address] Danisha Delarosa, REJECTOR.STREET LIGHT REPAIRER HELPER [address] [place] [phone] follow up Psychiatry Comment on above: follow up Start: 2023 Advance Directive Discussion Advance Directive Discussion [facility] Start: 2023 Pneumococcal Vaccine: 65+ (1 of 1 - PCV) Pneumococcal Vaccine: 65+ (1 of 1 - PCV) [facility] Start: 01-05-2023 ANNUAL PCP TEAM CHRONIC DISEASE VISIT ANNUAL PCP TEAM CHRONIC DISEASE VISIT [facility] Start: 11-26-2022 ANNUAL PCP TEAM CHRONIC DISEASE VISIT ANNUAL PCP TEAM CHRONIC DISEASE VISIT [facility] Start: 11-16-2022 ANNUAL PCP TEAM CHRONIC DISEASE VISIT ANNUAL PCP TEAM CHRONIC DISEASE VISIT [facility] Start: 10-21-2022 Covid-19 Vaccine ( season) Covid-19 Vaccine ( season) [facility] Start: 10-21-2022 Covid-19 Vaccine ( season) Covid-19 Vaccine ( season) [facility] Start: 10-21-2022 Influenza vaccination [facility] Start: 10-20-2022 ANNUAL PCP TEAM CHRONIC DISEASE VISIT ANNUAL PCP TEAM CHRONIC DISEASE VISIT [facility] Start: 09-07-2022 End: 11-07-2022 25-hydroxyvitamin D3 [Mass/volume] in Serum or Plasma VITAMIN D 25 HYDROXY Lab Routine Night sweats Expected: 09/07/2022, Expires: 11/07/2022 [facility] Work Phone: Comment on above: Expected: 09/07/2022, Expires: Start: 09-07-2022 End: 11-07-2022 CBC W Auto Differential panel - Blood CBC + DIFF Lab Routine Night sweats Expected: 09/07/2022, Expires: 11/07/2022 [facility] Work Phone: Comment on above: Expected: 09/07/2022, Expires: 3 Start: 09-07-2022 End: 11-07-2022 Cobalamin (Vitamin B12) [Mass/volume] in Serum or Plasma VITAMIN B12 BLOOD Lab Routine Night sweats Expected: 09/07/2022, Expires: 11/07/2022 [facility] Work Phone: Comment on above: Expected: 09/07/2022, Expires: 3 Start: 09-07-2022 End: 11-07-2022 Comprehensive metabolic 2000 panel - Serum or Plasma COMP METABOLIC PANEL Lab Routine Night sweats Expected: 09/07/2022, Expires: 11/07/2022 [facility] Work Phone: Comment on above: Expected: 09/07/2022, Expires: 3 Start: 09-07-2022 End: 11-07-2022 Iron and Iron binding capacity panel - Serum or Plasma IRON + TIBC Lab Routine Night sweats Expected: 09/07/2022, Expires: 11/07/2022 [facility] Work Phone: Comment on above: Expected: 09/07/2022, Expires: 3 Start: 09-07-2022 End: 11-07-2022 Thyrotropin [Units/volume] in Serum or Plasma TSH BLD Lab Routine Night sweats Expected: 09/07/2022, Expires: 11/07/2022 [facility] Work Phone: Comment on above: Expected: 09/07/2022, Expires: 3 Start: 09-07-2022 End: 11-07-2022 Thyroxine (T4) free [Mass/volume] in Serum or Plasma T4 FREE/FREE THYROX Lab Routine Night sweats Expected: 09/07/2022, Expires: 11/07/2022 [facility] Work Phone: Comment on above: Expected: 09/07/2022, Expires: 3 Start: 09-07-2022 End: 11-07-2022 Triiodothyronine (T3) [Mass/volume] in Serum or Plasma T3 BLD Lab Routine Night sweats Expected: 09/07/2022, Expires: 11/07/2022 [facility] Work Phone: Comment on above: Expected: 09/07/2022, Expires: 3 Start: 09-05-2022 Taking nasal swab [facility] Start: 08-19-2022 Influenza vaccination INFLUENZA (#1) [facility] Comment on above: Postponed from 10/21/2021 (Declined at t his time) Start: 03-24-2022 ANNUAL PCP TEAM CHRONIC DISEASE VISIT ANNUAL PCP TEAM CHRONIC DISEASE VISIT [facility] Start: 10-21-2021 Influenza vaccination [facility] Start: 10-21-2021 End: 12-21-2021 Lipid 1996 panel - Serum or Plasma LIPID PANEL BASIC Lab Routine Hypercholesteremia Expected: 10/21/2021, Expires: 12/21/2021 [facility] Work Phone: Comment on above: Expected: 10/21/2021, Expires: 2 Start: 10-20-2021 End: 12-20-2021 25-hydroxyvitamin D3 [Mass/volume] in Serum or Plasma [facility] Work Phone: Comment on above: Expected: 10/20/2021, Expires: 2 Start: 10-20-2021 End: 12-20-2021 CBC W Auto Differential panel - Blood [facility] Work Phone: Comment on above: Expected: 10/20/2021, Expires: 2 Start: 10-20-2021 End: 12-20-2021 Cobalamin (Vitamin B12) [Mass/volume] in Serum or Plasma [facility] Work Phone: Comment on above: Expected: 10/20/2021, Expires: 2 Start: 10-20-2021 End: 12-20-2021 Comprehensive metabolic 2000 panel - Serum or Plasma [facility] Work Phone: Comment on above: Expected: 10/20/2021, Expires: 2 Start: 10-20-2021 End: 12-20-2021 Ferritin [Mass/volume] in Serum or Plasma [facility] Work Phone: Comment on above: Expected: 10/20/2021, Expires: 2 Start: 10-20-2021 End: 12-20-2021 Iron and Iron binding capacity panel - Serum or Plasma [facility] Work Phone: Comment on above: Expected: 10/20/2021, Expires: 2 Start: 10-20-2021 End: 12-20-2021 Lipid 1996 panel - Serum or Plasma [facility] Work Phone: Comment on above: Expected: 10/20/2021, Expires: 2 Start: 10-20-2021 End: 12-20-2021 PSA/PROSTSPECAG SCRN [facility] Work Phone: Comment on above: Expected: 10/20/2021, Expires: 2 Start: 10-20-2021 End: 12-20-2021 THYROID PEROXIDASE ANTIBODY BLOOD [facility] Work Phone: Comment on above: Expected: 10/20/2021, Expires: 2 Start: 10-20-2021 End: 12-20-2021 Thyrotropin [Units/volume] in Serum or Plasma [facility] Work Phone: Comment on above: Expected: 10/20/2021, Expires: 2 Start: 10-20-2021 End: 12-20-2021 Thyroxine (T4) free [Mass/volume] in Serum or Plasma [facility] Work Phone: Comment on above: Expected: 10/20/2021, Expires: 2 Start: 10-20-2021 End: 12-20-2021 Triiodothyronine (T3) [Mass/volume] in Serum or Plasma [facility] Work Phone: Comment on above: Expected: 10/20/2021, Expires: 2 Start: 09-27-2021 Patient discharge [facility] Work Phone: Start: 09-26-2021 Provision of activity privileges [facility] Work Phone: Start: 09-26-2021 [facility] Work Phone: Start: 09-25-2021 Following clinical pathway protocol [facility] Work Phone: Start: 09-25-2021 Assessment of risk of venous thromboembolism [facility] Work Phone: Start: 09-25-2021 Catheterization of vein [facility] Work Phone: Start: 09-25-2021 Elevation of affected extremity [facility] Work Phone: Start: 09-25-2021 Insertion of catheter into peripheral vein [facility] Work Phone: Start: 09-25-2021 Measuring intake and output [facility] Work Phone: Start: 09-25-2021 Providing care according to standard [facility] Work Phone: Start: 09-25-2021 Provision of activity privileges [facility] Work Phone: Start: 09-25-2021 [facility] Work Phone: Start: 09-25-2021 Admission procedure [facility] Work Phone: Start: 01-20-2021 SHINGRIX VACCINE (2 of 2) SHINGRIX VACCINE (2 of 2) [facility] Start: 11-11-2020 COVID-19 VACCINE (3 - Booster for Moderna series) COVID-19 VACCINE (3 - Booster for Moderna series) [facility] Start: 08-06-2020 COVID-19 VACCINE (3 - Booster for Moderna series) COVID-19 VACCINE (3 - Booster for Moderna series) [facility] Start: 08-06-2020 COVID-19 VACCINE (3 - Moderna series) COVID-19 VACCINE (3 - Moderna series) [facility] Start: 2018 RSV Vaccine (1 - 1-dose 60+ series) RSV Vaccine (1 - 1-dose 60+ series) [facility] Start: 2008 Pneumococcal Vaccine: 50+ (1 of 1 - PCV) Pneumococcal Vaccine: 50+ (1 of 1 - PCV) [facility] Start: 2003 COLOGUARD (FIT-DNA) [facility] Start: [address] COLONOGRAPHY [facility] Start: 2003 FECAL OCCULT BLOOD FECAL OCCULT BLOOD [facility] Start: 2003 Screening for malignant neoplasm of colon [facility] Start: 2003 SIGMOIDOSCOPY SIGMOIDOSCOPY [facility] Start: 1960 Abdominal aortic aneurysm screening Abdominal Aortic Aneurysm Screening [facility] Alanine aminotransfe rase [Enzymatic activity/volume] in Serum or Plasma [facility] Work Phone: Albumin [Mass/volume ] in Serum or Plasma [facility] Work Phone: Alkaline phosphatase [Enzymatic activity/volume] in Serum or Plasma [facility] Work Phone: Anion gap measurement [facility] Work Phone: Aspartate aminotransferase [Enzymatic activity/volume] in Serum or Plasma [facility] Work Phone: Bilirubin, total measurement [facility] Work Phone: BUN/Creatinine ratio [facility] Work Phone: Calcium [Mass/volume ] in Serum or Plasma [facility] Work Phone: Carbon dioxide, tota l [Moles/volume] in Serum or Plasma [facility] Work Phone: Chloride [Moles/volu me] in Serum or Plasma [facility] Work Phone: Creatinine [Moles/vo lume] in Serum or Plasma [facility] Work Phone: CT Kidney WO and W contrast IV CT UROGRAM WO/W IVCON Radiology Routine Gross hematuria 09/04/2024 3:42 PM EDT [facility] Work Phone: Cystourethroscopy CYSTOSCOPY [place] ss hematuria MR OR ECG COMPLETE ECG COMPLETE ECG Routine BPPV (benign paroxysmal positional vertigo), unspecified laterality Dizzy Nausea Ordered: 12/21/2022 [facility] Work Phone: Comment on above: Ordered: 12/21/2022 End: 01-31-2024 ECG COMPLETE ECG COMPLETE ECG Routine Abdominal aortic embolism (HCC) 1 Occurrences starting 01/30/2023 until 01/31/2024 [facility] [place] Work Phone: Comment on above: 1 Occurrences starting 01/30/2023 until 01/31/2024 End: 11-08-2022 EGD - THERAPEUTIC, EUS, OR TUBE INTERVENTIONS EGD - THERAPEUTIC, EUS, OR TUBE INTERVENTIONS Endoscopy Routine Esophageal dysphagia 1 Occurrences starting 11/08/2021 until 11/08/2022 [facility] Work Phone: Comment on above: 1 Occurrences starting 11/08/2021 until 11/08/2022 End: 06-18-2023 EGD - THERAPEUTIC, EUS, OR TUBE INTERVENTIONS EGD - THERAPEUTIC, EUS, OR TUBE INTERVENTIONS Endoscopy Routine Lower esophageal ring (Schatzki) 1 Occurrences starting 06/17/2022 until 06/18/2023 [facility] Work Phone: Comment on above: 1 Occurrences starting 06/17/2022 until 06/18/2023 Glucose [Mass/volume ] in Serum or Plasma [facility] Work Phone: HEARING TEST/AUDIOGRAM HEARING T EST/AUDIOGRAM Audiology Routine Impaired auditory discrimination, left Ordered: 11/01/2022 [facility] Work Phone: Comment on above: Ordered: 11/01/2022 Hematocrit [Volume Fraction] of Blood [facility] Work Phone: Hemoglobin [Mass/vol ume] in Blood [facility] Work Phone: Leukocytes [#/volume ] in Blood [facility] Work Phone: Mean corpuscular hemoglobin concentration determination [facility] Work Phone: Mean corpuscular hemoglobin determination [facility] Work Phone: Measurement of renal function [facility] Work Phone: Neutrophil count [facility] Work Phone: Neutrophil percent differential count [facility] Work Phone: End: 11-05-2023 PAP TITRATION PSG (CPAP, BIPAP, ASV) PAP TITRATION PSG (CPAP, BIPAP, ASV) Procedures Routine Nightmares Fatigue, unspecified type Chronic insomnia Restless sleeper BOBBY (obstructive sleep apnea) 1 Occurrences starting 10/06/2022 until 11/05/2023 [facility] Work Phone: Comment on above: 1 Occurrences starting 10/06/2022 until 11/05/2023 Patient Education [facility] Work Phone: Patient referral [facility] Work Phone: Platelets [#/volume] in Blood [facility] Work Phone: POST VOID RESIDUAL POST VOID RES IDUAL Procedures Routine Screening for genitourinary condition Ordered: 08/20/2024 [facility] Work Phone: Comment on above: Ordered: 08/20/2024 Potassium [Moles/vol ume] in Serum or Plasma [facility] Work Phone: Red blood cell count [facility] Work Phone: Red cell distributio n width determination [facility] Work Phone: Sodium [Moles/volume ] in Serum or Plasma [facility] Work Phone: Total protein measurement [facility] Work Phone: Urea nitrogen [Mass/volume] in Serum or Plasma [facility] Work Phone: Urine culture [facility] Urine culture [facility] End: 12-22-2023 US CAROTID ARTERIES [facility] US CAROTID [facility]ERIES [facility] Vascular Lab Routine BPPV (benign paroxysmal positional vertigo), unspecified laterality Dizzy Nausea 1 Occurrences starting 12/21/2022 until 12/22/2023 [facility] Work Phone: Comment on above: 1 Occurrences starting 12/21/2022 until 12/22/2023 End: 01-20-2024 US CAROTID BILATERAL US CAROTID BILATERAL Radiology Routine BPPV (benign paroxysmal positional vertigo), unspecified laterality Dizzy Nausea 1 Occurrences starting 12/21/2022 until 01/20/2024 [facility] Work Phone: Comment on above: 1 Occurrences starting 12/21/2022 until 01/20/2024 [facility] Immunizations Immunization Date Immunization Notes Care Provider [facility] 03-25-2024 influenza, high dose seasonal, preservative-free Jules Haynes DO Work Phone: [facility] 03-25-2024 influenza virus vaccine, unspecified formulation Jorge Reddy Jr., MD Work Phone: [facility] 12-09-2022 influenza, injectabl e, quadrivalent, contains preservative Zulay Lord [facility] Work Phone: [facility] Work Phone: 12-09-2022 influenza virus vaccine, unspecified formulation Jorge Reddy Jr., MD Work Phone: [facility] 09-25-2021 tetanus toxoid, redu demi diphtheria toxoid, and acellular pertussis vaccine, adsorbed Dr. Jules Haynes Work Phone: [facility] 11-25-2020 zoster vaccine recombinant Katherin English APRN.CNP Work Phone: [facility] 06-11-2020 Covid (Moderna) Dr. Jules lopez Work Phone: [facility] 05-14-2020 Covid (Moderna) Dr. Jules lopez Work Phone: [facility] 09-21-2019 influenza virus vaccine, unspecified formulation Nando Sanchez MD Work Phone: [facility] 07-31-2019 tetanus toxoid, redu demi diphtheria toxoid, and acellular pertussis vaccine, adsorbed Katherin Praisler-Wood [employer] Work Phone: [facility] 02-10-2019 Influenza, injectabl e, Madin Orlando Canine Kidney, preservative free, quadrivalent Dr. Jules Haynes Work Phone: [facility] 12-19-2017 influenza, injectabl e, quadrivalent, contains preservative Katherin Praisler-Wood REJECT[employer] HEL[employer] Work Phone: [facility] Work Phone: 12-05-2016 influenza, injectabl e, quadrivalent, contains preservative Katherin Praisler-Wood REJECTOR.[employer] Work Phone: [facility] Work Phone: Payers Date Payer Category Payer Private Health Insurance [id number] 2024 Self-pay [id number] 2022 Unknown [id number] 2022 Unknown [id number] 2019 Private Health Insurance [employer] OAP [id number] 2019-Present [phone] [address] [place] [address] Open Access [id number] 2019 Private Health Insurance [id number] 2017 [employer] ( and others) [id number] 2017 Unknown EAST [id number] 2017-Present [phone] [address] [place] [address] Indemnity [id number] 2017 Unknown [id number] Private Health Insurance [id number] Private Health Insurance [id number] Unknown [id number] Social History Date Type Detail Facility Start: 03-29-2013 End: 10-05-2024 Tobacco smoking status NHIS Ex-smoker [facility] Work Phone: Start: 02-20-1970 End: 02-20-2005 History of tobacco use Current smoker [facility] Work Phone: Start: 02-20-1970 End: 02-20-2005 History of tobacco use Cigarette Smoker [facility] Work Phone: Start: 03-29-2013 End: 09-07-2022 Cigarettes smoked current (pack per day) - Reported 1.25 [facility] Start: 03-29-2013 End: 12-11-2023 Tobacco use and exposure Smokeless tobacco non-user [facility] Work Phone: Start: 07-26-2021 End: 08-12-2024 Alcohol intake Current drinker of alcohol (finding) [facility] Start: 03-18-2021 History SDOH Alcohol Frequency 5 [facility] Start: 03-18-2021 End: 11-26-2021 History SDOH Alcohol Std Drinks 2 [facility] Start: 03-18-2021 History SDOH Social Connections Phone 4 [facility] Start: 03-18-2021 End: 11-26-2021 History SDOH Social Connections Get Together 1 [facility] Start: 03-18-2021 History SDOH Social Connections Living 3 [facility] Start: 03-18-2021 History SDOH Physical Activity DPW 0 [facility] Start: 02-27-2020 Education 14 [facility] Start: 1960 Sex Assigned At Male [facility] Start: 01-29-2020 End: 12-28-2021 Exposure to SARS-CoV-2 (event) Not sure [facility] Start: 09-25-2021 End: 09-17-2022 Tobacco smoking status NHIS Unknown if ever smoked [facility] Start: 03-18-2021 End: 09-07-2022 Social connection and isolation panel [facility] Do you belong to any clubs or organizations such as [employer] groups, [employer], [employer] or athletic groups, or school groups? No [facility] Are you now , , , , never or living with a partner? [facility] How often to you hav e a drink containing alcohol? 4 or more times a week [facility] How many standard dr inks containing alcohol do you have on a typical day? 3 or 4 [facility] How often do you hav e 6 or more drinks on 1 occasion? Less than monthly [facility] How hard is it for y ou to pay for the very basics like food, housing, medical care, and heating Not hard at all [facility] Do you feel stress - tense, restless, nervous, or anxious, or unable to sleep at night because your mind is troubled all the time - these days [OSQ] Only a little [facility] (I/We) worried wheth er (my/our) food would run out before (I/we) got money to buy more. Never true [facility] Start: 03-04-2020 Gender identity Identifies as male gender (finding) [facility] Start: 03-04-2020 Sexual orientation Heterosexual (finding) [facility] Do you belong to any clubs or organizations such as [employer] groups, [employer], [employer] or athletic groups, or school groups? Yes [facility] How many standard dr inks containing alcohol do you have on a typical day? 1 or 2 [facility] How often do you hav e 6 or more drinks on 1 occasion? Never [facility] Do you feel stress - tense, restless, nervous, or anxious, or unable to sleep at night because your mind is troubled all the time - these days [OSQ] Very much [facility] Start: 05-22-2023 Alcohol Comment 1-2 drinks per day [facility] Are you now , , , , never or living with a partner? Living with partner [facility] Start: 08-20-2024 End: 09-16-2024 Alcoholic beverage intake Ex-drinker (finding) [facility] unruly Start: 08-20-2024 Alcohol Comment Quit 04/29/2024 [facility] Goals Date Patient Goal Desired Activity /State Personal health goal Functional Status Date Assessment Result Facility 09-27-2021 Functional status Ambulates;Up ad [place] [facility] Work Phone: 09-25-2021 Functional status Activity Abili ty Independent [facility] Work Phone: 09-24-2014 Are you deaf, or do you have serious difficulty hearing No 09/24/2014 12:52 PM AMBART Carlos Rizvi LPN No [facility] 09-24-2014 Are you blind, or do you have serious difficulty seeing, even when wearing glasses No 09/24/2014 12:52 PM Carlos Guthrie LPN No [facility] 09-24-2014 Do you have serious difficulty walking or climbing stairs No 09/24/2014 12:52 PM Carlos Guthrie LPN No [facility] 09-24-2014 Do you have difficul ty dressing or bathing No 09/24/2014 12:52 PM Carlos Guthrie LPN No [facility] 09-24-2014 Because of a physica l, mental, or emotional condition, do you have difficulty doing errands alone such as visiting a physician's office or shopping No 09/24/2014 12:52 PM Carlos Guthrie LPN No [facility] Mental Status Date Assessment Result Facility 09-17-2022 Cognitive function Level Of Cons ciousness Awake;Alert;Restless [facility] Work Phone: 09-27-2021 Cognitive function Voice/Name [facility] Work Phone: 09-25-2021 Cognitive function Voice/Name [facility] Work Phone: 09-24-2014 Because of a physica l, mental, or emotional condition, do you have serious difficulty concentrating, remembering, or making decisions Yes 09/24/2014 12:52 PM EDT Carlos Rizvi LPN Yes [facility] Clinical Notes 02-28-2020 to 10-05-2024 Telephone Encounter - Carlos Wheeler - 09/17/2024 8:22 AM EDTTelephone Encounter - Carlos Wheeler - 09/17/2024 8:22 AM Clemencia Nicole MD - 09/16/2024 11:15 AM EDT Note Date & Type Note Facility 10-05-2024 Discharge summary [facility] 10-05-2024 Radiology Diagnostic study note [facility] [address] [place] [place] [id number] CT Abd/Pelvis W/WO Contrast MR#: [id number] Acct: [id number] Name: KACEY BENTLEY Rep #: [id number] : 1960 M 64 From: Katlyn Palomo MD PCP: Dr. Jules Haynes, DO Status: RE G ER Study:CT Abd/Pelvis W/WO Contrast Date of Exa m: 10/05/24 Exam# [id number] Ordering Dr: Melyssa Marcus MD PROCEDURE: CT ABD/PELVIS W/WO CONTRAST 10/05/2024 REASON FOR EXAM: LEFT FLANK PAIN, RECENT RIGHT URETERAL STENT TECHNIQUE: CT ABD/PELVIS W/WO CONTRAST Coronal and Sagittal reconstruction series were provided. CONTRAST: VOLUME: mL One or more dose reduction techniques were used (e.g., Automated exposure control, adjustment of the mA and/or kV according to patient size, use of iterative reconstruction technique. RADIATION DOSE SUMMARY: CTDlvol: 8.15 mGy DLP: 394 mGycm COMPARISON: CT SCAN ON 08/18/2024. FINDINGS: Right nephroureteral stent is in good position. Moderate left hydroureteronephrosis, possibly recent passage of a calculus versus an ascending urinary tract infection. No obstructing stone or drainable abscess formation. Mild diffuse thickening of the bladder, possibly cystitis. Minimal gas density in the lumen of the bladder, possibly recent instrumentation. Mild gastroparesis. The visualized lung bases are unremarkable. Normal unenhanced liver. Normal gallbladder and extrahepatic biliary system. Normal unenhanced spleen. Normal pancreas. Normal bilateral adrenal glands. Normal size of the right kidney. There is no right renal mass. There are no right renal calculi. There is no right hydronephrosis. Normal visualized right ureter. Normal size of the left kidney. There is no left renal mass. There are no leftrenal calculi. Normal small intestine. Normal colon. The appendix is visualized and appears normal. There is no demonstrated peritoneal fluid. Calcified atheromatous plaques of the abdominal aorta. Normal inferior vena cava. Normal retroperitoneum. There is no pelvic mass lesion or lymphadenopathy. There is no pelvic fluid. Normal abdominal wall. CT/CT Abd/Pelvis W/WO Contrast IMPRESSION: Right nephroureteral stent is in good position. Moderate left hydroureteronephrosis, possibly recent passage of a calculus versus an ascending urinary tract infection. No obstructing stone or drainable abscess formation. Mild diffuse thickening of the bladder, possibly cystitis. Minimal gas density in the lumen of the bladder, possibly recent instrumentation. Mild gastroparesis. Reading Location: [place] [address] CC: Dr. Brett Marcus MD; Dr. Jules Haynes, DO ~ 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: Signed [facility] 10-01-2024 Note HNO ID: [id number] Author: ANGE LOPEZ CPhT Service: Pharmacy Author Type: Stock Associate Type: Plan of Care Filed: 10/01/2024 11:35 [...] PAGER: norberto October 01, 2024 11:33 AM [facility] 10-01-2024 Note HNO ID: [id number] Author: CEM BREWSTER AA Service: ? Author Type: Tile Machine Operator Type: Anesthesia Procedure Notes Filed: 10/01/2024 09:52 [...] October 01, 2024 TIME: 9:51 AM CSN: [id number] [facility] 09-30-2024 Note HNO ID: [id number] Author: TYLER BAPTISTE RN Service: Nursing Author [...] Ensure Pre-Surgery (given by MARK or your ), fruit juice without pulp (apple/cranberry), clear tea, [...] directed. Bring copy of Living Will/Power of Cam Specialist. Do not smoke or chew. If you [...] the Surgery Center. UPON ARRIVAL: Access to [facility] (the [facility]) is located on [address] Rn [address] And D parking is available for your convenience from [...] time are permitted in your preprocedure room. [facility] 09-27-2024 Note HNO ID: [id number] Author: MADISON GARCIAS APRN.TIMUR Service: ? Author Type: Nurse Practitioner Type: Progress Notes Filed: 09/27/2024 15:43 Note Text: -------- Summary: PAT REVIEW -------- 64 yo male with HX: anxiety, depression, [...] a prior CC echocardiographic exam for comparison. [facility] 09-27-2024 Note HNO ID: [id number] Author: MADISON GARCIAS APRN.CNP Service: ? Author Type: Nurse Practitioner Type: Progress Notes Filed: 09/27/2024 15:38 Note Text: -------- Summary: DO SMEDS -------- MEDICATION INSTRUCTIONS PRIOR TO SURGERY Please read [...] instructions for the morning of your procedure. [facility] 09-17-2024 Telephone encounter Note Images from the original note were not included. Clemencia Price MD Smith-Mizik, Marryssa Anne On day of OR, cysto, add L use diagnostic dont need laser [facility] 09-17-2024 Miscellaneous Notes Images from the original note were not included. Clemencia Price MD Smith-Mizik, Marryssa Anne On day of OR, cysto, add L use diagnostic dont need laser documented in this encounter [facility] 09-16-2024 Note HNO ID: [id number] Author: CLEMENCIA PRICE MD Service: ? Author Type: Physician Type: Progress Notes Filed: 09/16/2024 11:51 Note Text: [facility] [place] ESTABLISHED PATIENT OFFICE VISIT Patient presents with: [...] medical care services (more content not included)... [facility] 09-16-2024 History of Present illness Narrative Images from the original note were not included. [facility] [place] ESTABLISHED PATIENT OFFICE VISIT Patient presents with: [...] to errors including those of syntax and sound-alike substitutions which may escape proofreading. In such instances, original meaning may be extrapolated by contextual derivation. documented in this encounter [facility] 09-13-2024 Telephone encounter Note Called patient to schedule, could only come in on Monday next week. Scheduled with Dr. Price per note [facility] 09-13-2024 Miscellaneous Notes Called patient to schedule, could only come in on Monday next . Scheduled with Dr. Price per note Images from the original note were not included. Clemencia Price MD P [facility] [place] Clerical Pool Pt is scheduled for cysto but I want to see pt next week to better plan his procedure and meet. Previous Messages ----- Message ----- From: Glo Molina Sent: 09/11/2024 3:47 PM EDT To: Clemencia Price MD Subject: Case [id number] Scheduled: Patient * You are receiving this message because you are assigned as the primary surgeon for this case. Your surgery request has been scheduled on 10/01/2024 in OR . Please access Case [id number] by clicking on the blue case link in the Case Information above to enter in day of surgery orders and any other documentation that is needed for the case. You will need to forward to another caregiver to complete the work (like a resident or BUNCHER MACHINE/PA) if you have additional team members assisting you. Procedure(s): CYSTOSCOPY (N/A) documented in this encounter [facility] 09-13-2024 Telephone encounter Note Images from the original note were not included. [facility] [place] Pt is scheduled for cysto but I want to see pt next week to better plan his procedure and meet. Previous Messages ----- Message ----- From: Glo Molina Sent: 09/11/2024 3:47 PM EDT To: Clemencia Price MD Subject: Case [id number] Scheduled: Patient * You are receiving this message because you are assigned as the primary surgeon for this case. Your surgery request has been scheduled on 10/01/2024 in OR . Please access Case [id number] by clicking on the blue case link in the Case Information above to enter in day of surgery orders and any other documentation that is needed for the case. You will need to forward to another caregiver to complete the work (like a resident or BUNCHER MACHINE/PA) if you have additional team members assisting you. Procedure(s): CYSTOSCOPY (N/A) [facility] 09-06-2024 Telephone encounter Note Called pt and made him aware it has been sent to Dr. Price and we will call him back. [place] [facility] 09-06-2024 Miscellaneous Notes Called pt and made him aware it has been sent to Dr. Price and we will call him back. [place] How to proceed? Spouse anxious to connect with Dr Ordonez's office. Spouse was scheduled for a cystoscopy with Dr Ordonez in [place] on 09/10/24. She said that her has to have the cystoscopy under anesthesia; she said that he flails/is unable to be still. Since the procedure of 09/10/[address] Ordonez was scheduled in the office, the appointment has been canceled. Patient sees Clarisse Cee in [place]. Please call spouse to assist/arrange procedure so that it accommodates patient's special needs. Patient's called to clarify that patient's cystoscopy on 09/10 is to be in OR under anesthesia. 09/10 patient is scheduled in office cystoscopy Please advise next steps Roro Plata RN documented in this encounter [facility] 09-06-2024 Telephone encounter Note How to proceed? [facility] 09-05-2024 Telephone encounter Note Spouse anxious to connect with Dr Ordonez's office. Spouse was scheduled for a cystoscopy with Dr Ordonez in [place] on 09/10/24. She said that her has to have the cystoscopy under anesthesia; she said that he flails/is unable to be still. Since the procedure of 09/10/[address] Ordonez was scheduled in the office, the appointment has been canceled. Patient sees Clarisse Cee in [place]. Please call spouse to assist/arrange procedure so that it accommodates patient's special needs. [facility] 09-05-2024 Telephone encounter Note Patient's called to clarify that patient's cystoscopy on 09/10 is to be in OR under anesthesia. 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 Author Type: Machine Bunch Maker Type: Progress Notes Filed: 09/04/2024 15:55 Note [...] PATIENT PRESENTS WITH AN IMPLANTABLE OR ATTACHED SAMPLE MAKER HAND: No ALLERGIES: Reviewed and unchanged CONTRAST ALLERGY: [...] DATE: September 04, 2024 TIME: 3:55 PM [facility] 09-03-2024 Telephone encounter Note Called patient. Verified name and date of . Patient aware of order and will check in for CT Urogram as scheduled. Za Colón LPN [facility] 09-03-2024 Miscellaneous Notes Called patient. Verified name and date of . Patient aware of order and will check in for CT Urogram as scheduled. Za Colón LPN Please place order for creatinine order for pt , pt appt on 09/04/[address] documented in this encounter [facility] 09-03-2024 Telephone encounter Note Please place order for creatinine order for pt , pt appt on 09/04/[address] [facility] 08-30-2024 Telephone encounter Note Scheduled Nanda Bates [facility] 08-30-2024 Miscellaneous Notes Scheduled Nanda Bates Called patient. Verified name and date of . Patient informed of results- verbalizes understanding. Reviewed upcoming appointments but states he may have received a call from [employer] but is not certain and would like a call back to schedule. Za Colón LPN ----- Message from Clarisse Cee PA-C sent at 08/27/2024 3:56 PM EDT ----- No infection in the urine No cancer cells in urine, please continue the rest of the testing JANESSA Kay MT, PA-C documented in this encounter [facility] 08-27-2024 Telephone encounter Note Called patient. Verified name and date of . Patient informed of results- verbalizes understanding. Reviewed upcoming appointments but states he may have received a call from [employer] but is not certain and would like a call back to schedule. Za Colón LPN [facility] 08-27-2024 Telephone encounter Note ----- Message from Clarisse Cee PA-C sent at 08/27/2024 3:56 PM EDT ----- No infection in the urine No cancer cells in urine, please continue the rest of the testing JANESSA Kay MT, PA-C [facility] 08-20-2024 Instructions Clarisse Cee PA-C - 08/20/2024 [...] a cystoscopy with the urology surgeon at [facility]; Millie will call you at [phone] to arrange this. If you miss her call, please return her call directly. - If your urine culture shows an infection, begin the prescribed antibiotic before the cystoscopy as directed. - If urine cytology shows tumor cells, we will still complete the CT scan and cystoscopy to locate any areas of concern. CT Urogram to be scheduled at [facility] Cystoscopy to scheduled at [facility] - Urology they will contact patient # [phone] Urine Culture Pending Urine Cytology - Pending documented in this encounter [facility] 08-20-2024 Note HNO ID: [id number] Author: CLARISSE CEE PA-C Service: ? Author Type: Physician Pattern Grader Cutter Type: Progress Notes Filed: 08/26/2024 09:45 Note Text: [facility] NEW PATIENT CLINIC NOTE (M) Note was generated by [employer] and edited as appropriate SERVICE DATE: [...] and sudden urgency. - Admits to being usually dehydrated. LABS: PSA (ng/mL) Date Value 07/31/2019 0.20 [...] Friends and Family: Once a week Attends [employer]: Never Active Member of Clubs or [...] cm (5' 11.7 (more content not included)... [facility] 08-20-2024 History of Present illness Narrative Images from the original note were not included. [facility] NEW PATIENT CLINIC NOTE (M) Note was generated by [employer] and edited as appropriate SERVICE DATE: [...] and sudden urgency. - Admits to being usually dehydrated. LABS: PSA (ng/mL) Date Value 07/31/2019 0.20 [...] Friends and Family: Once a week Attends [employer] Services: Never Active Member of Clubs or [...] resp. rate 14, height 182.2 cm (5' 11.75), weight 84.4 kg (186 lb), SpO2 97%. [...] episode of gross hematuria on 11/18 at [facility]; CT scan without contrast showed no stones or significant abnormalities. Trace hematuria on today's urine dipstick. Initiated full workup to rule out malignancy, including bladder cancer. Ordered urine culture and urine cytology on today's sample. Scheduled CT scan with and without contrast to be done here. Referred for cystoscopy to be performed by [facility] Urologist at [facility]; discussed possibility of sedation with the surgeon. [...] completed CT Urogram to be scheduled at [facility] Cystoscopy to scheduled at [facility] they will contact patient # [phone] Urine Culture Pending Urine Cytology - Pending [...] a cystoscopy with the urology surgeon at [facility]; Millie will call you at [phone] to arrange this. If you miss her [...] Medical record or letter via US mail. JANESSA Kay MT, PA-C Verified name and date of [...] Appointment with Clarisse. documented in this encounter [facility] 08-20-2024 Note HNO ID: [id number] Author: ZA COLÓN LPN Service: ? Author Type: LICENSED NURSE Type: Progress Notes Filed: 08/26/2024 09:45 Note Text: Verified name and date of . CC Post Void Residual HPI: Kacey Bentley is a 64 year old male. The patient is here now for an appointment with Clarisse Cee, JANESSA, MT, PA-COV. Procedure: Explained procedure to patient and verbalizes understanding. Performed a PVR. Patient urinated and instructed to empty bladder as much as possible just prior to having PVR done using bladder ultrasound scanner. Results of scan: x mL The patient tolerated the procedure well. Plan: Appointment with Clarisse. [facility] 08-19-2024 Telephone encounter Note [facility] notified of request for records to be pushed. Za Colón LPN [facility] 08-19-2024 Miscellaneous Notes [facility] notified of request for records to be pushed. Za Colón LPN Faxed request for imaging/emergency room visit from [facility] on 08/18/2024. Za Colón LPN documented in this encounter [facility] 08-19-2024 Telephone encounter Note Faxed request for imaging/emergency room visit from [facility] on 08/18/2024. Za Colón LPN [facility] 08-19-2024 Telephone encounter Note Melatonin refilled Sushant Colmenares APRN.CNP [facility] 08-19-2024 Miscellaneous Notes Melatonin refilled Sushant Colmenares APRN.CNP Prescription Refill Information The patient has been [...] 2024 1:03 PM documented in this encounter [facility] 08-19-2024 Telephone encounter Note Prescription Refill Information [...] ENRIQUE Funk August 19, 2024 1:03 PM [facility] 08-18-2024 Discharge summary [facility] 08-18-2024 Radiology Diagnostic study note [facility] Imaging Services [address] [place] [address] Abdomen/Pelvis without Cont MR#: [id number] Acct: [id number] Name: KACEY BENTLEY Rep #: [id number] : 1960 M 64 From: Rashida Grant MD PCP: Dr. Jules Haynes DO Status: RE G ER Study:Abdomen/Pelvis without Cont Date of Exa m: 08/18/24 Exam# [id number] Ordering Dr: Annie Rose PROCEDURE: ABDOMEN/PELVIS WITHOUT CONT 08/18/2024 REASON FOR [...] IMPRESSION: No acute abdominopelvic findings. Reading Location: [employer] CC: Dr. Jules Haynes DO; ADITYA Verma ~ 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: Signed [facility] 08-18-2024 Discharge summary Note Date/Time August 18, 2024 10:54pm [facility] Medical Records Department [address] [place] [address] Emergency Department Summary 08/18/24 MR#: [id number] Acct: [id number] Name: KACEY BENTLEY Rep #:[id number] : 1960 64 From: Annie BURGESS PCP: Dr. Jules Haynes, DO Status:RE G [...] AAA they are monitoring. No abdominal surgeries. [facility] <ADITYA Verma - Last Filed: 08/18/24 21:55> [facility] Medical History BPH (benign prostatic hyperplasia) CPAP [...] Positive for urgency, hematuria. EXAM <ADITYA Verma Last Filed: 08/18/24 21:55> Physical Exam Narrative [...] <ADITYA Verma - Last Filed: 08/18/24 21:55> MDM MDM Narrative Medical decision making narrative: [...] states he would like to follow-up with [facility] and will call and make an [...] (Auto) 71.0 H Lymph % (Auto) 19.3 [place] % (Auto) 7.7 Eos % (Auto) 1.4 [...] Clarity Cloudy Urine pH 6.5 Ur Specific [place] 1.020 Urine Protein 500 H Urine Glucose [...] IMPRESSION: No acute abdominopelvic findings. Reading Location: [facility] <Dr. Julian Sifuentes, DO - Last Filed: 08/18/24 22:54> [facility] Lab Data Labs: Laboratory Results - last 24 hr 08/18/24 08/18/24 20:23 21:52 WBC 9.4 RBC 4.35 L Hgb 13.9 Hct 39.9 L MCV 91.7 MCH 32.0 MCHC 34.8 RDW Std Deviation 40.1 RDW Coeff of [place] 11.8 Plt Count 178 MPV 10.1 Immature Gran % (Auto) 0.200 Neut % (Auto) 71.0 H Lymph % (Auto) 19.3 [place] % (Auto) 7.7 Eos % (Auto) 1.4 [...] Clarity Cloudy Urine pH 6.5 Ur Specific [place] 1.020 Urine Protein 500 H Urine Glucose [...] No acute abdominopelvic findings. Reading Location: [facility] Treatment and Re-Evaluation :: I have personally [...] come back to the ER. Print Language: Welsh Disposition Disposition: Home, Self Care What to do if you have Problems For any increased pain, shortness of breath, bleeding, nausea or vomiting, chestpain, or any unexpected problems, contact your Primary Care Provider. Call [facility] ([phone]) or report to the closest Emergency Room. Call 911 if necessary. 08/18/242201 <Electronically signed by Annie BURGESS> Cosigner Signature (if applicable): 08/18/242253 <Electronically signed by Julian Sifuentes DO> CC: Dr. Jules Haynes DO ~ Signed [facility] Work Phone: 1(257) 850-745106-23-2025 Instructions* Patient Instructions* Sushant Colmenares APRN.CNP - 08/12/2024 2:01 PM EDT Order for urine drug screen--aim to get it done in before your follow up appointment If unable to get a sooner appointment with Dr Reddy, contact me before you run out of your 6 month supply of clonazepam so I can give you a bridge prescription for one month [facility] History of Present illness Narrative* Sushant Colmenares APRN.TIMUR - 08/12/2024 1:30 PM EDT Images from the original note were not included. [facility] Sleep Disorders Center Follow up/ Established patient visit Recording using ambient AI software for draft documentation of the visit was discussed with the patient/authorized territory account representative; all questions welcomed and answered. 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 [...] side to side, not comfortable on back [facility] Reference Range & Units 01/08/24 11:32 Amphetamines, [...] results within acceptable limits Specimen Validity Specific [place] 1.003 - 1.035 1.027 !: Data is [...] are sorted in reverse-chronological order 12/15/2022 12/11/2023 Eleele Sleepiness Scale Score 13 (Excessive daytime sleepiness [...] - Refilled clonazepam prescription and sent to [facility] pharmacy. - Discussed potential impact of cannabis [...] therapy. Sushant Colmenares APRN.TIMUR documented in this encounterC[facility]25 NoteHNO ID: [id number] Author: SUSHANT COLMEANRES APRN.TIMUR Service: ? Author Type: Nurse Practitioner Type: Progress Notes Filed: 08/12/2024 16:55 Note Text: [facility] Sleep Disorders Center Follow up/ Established patient visit Recording using [employer] software for draft documentation of the visit was discussed with the patient/authorized territory account representative; all questions welcomed and answered. 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 [...] 55 Specimen Validity O (more content not included)...[facility] 08-08-2024 Telephone encounter Note* Telephone Encounter - Rand Villegas MA - 08/08/2024 9:36 AM EDT Looks like Neuro refilled on 08/06/24 [facility]06-19-[facility]25 Miscellaneous Notes* Telephone Encounter - Rand Villegas MA - 08/08/2024 9:36 AM EDT Looks like Neuro refilled on 08/06/24 * Telephone Encounter - Rand Villegas MA - 08/02/2024 3:36 PM EDT Images from the original note were not included. See QR Artist message below: Mc JOSE RAMON Delilah Jordan [facility] My Chart Rx Pool Good afternoon, Dr. Haynes. I hope you re had a good week. Jose Ramon needs a refill for the Klonopin precription refill and he is out of the medicatio. We cannot get into see the nurologist or his PA until mid-August and we cannot go that long without it. Thanks you Jonathan documented in this encounterCinc[facility] Telephone encounter Note * Telephone Encounter - Siria Singh - 08/06/2024 9:33 AM EDT Spouse called and made 6 mo follow up after 08/12 visit , however Dr Reddy's next opening was not until 03/31/2025 [facility] Miscellaneous Notes* Telephone Encounter - Siria Singh [...] to be with Dr Reddy. Sushant Colmenares APRN.STREET LIGHT REPAIRER HELPER * Telephone Encounter - Lori Toro MA [...] PM EDT Attempted to reach Jonathan, received VM. LM to return call to office and speak with Triage Nurse. Also sent QR Artist message regarding appt time currently held with [...] by Sushant Colmenares APRN.CNP documented in this encounterCinc[facility]06-17-[facility] Telephone encounter Note * Telephone Encounter - Sushant Colmenares APRN.CNP - 08/06/2024 7:37 AM EDT Images from the original note were not included. 30 day rx of clonazepam sent in since pt now has appointment with me. His 6 mo follow up after his July appointment with me will need to be with Dr Reddy. Sushant Colmenares APRN.TIMUR [facility]06-17-2025 Telephone encounter Note* Telephone Encounter - Lori Toro MA - 08/06/2024 7:09 AM EDT Pt scheduled with you on 08/12/24 at 1:30 pm. Notified to schedule 6 month f/u. Lori Toro MA [facility]06-16-2025 Telephone encounter Note* Telephone Encounter - Kimberly [...] Vazquez RN August 05, 2024 5:25 PM [facility]06-16-20[facility] Telephone encounter Note* Telephone Encounter - Lori Toro MA - 08/05/2024 4:40 PM EDT Attempted to reach Jonathan, received VM. LM to return call to office and speak with Triage Nurse. Also sent [employer] message regarding appt time currently held with Andie Colmenares on Monday08/12/24 at1:30 pm. Advised pt/ to contact office and speak with Schedulers to assist in making an appt. Updated pt that in message that a prescription would be sent in once an appt is made, as well as a 6 [address] follow up with Dr. Reddy. Lori Toro MA [facility]06-16-20[facility] Telephone encounter Note* Telephone Encounter - Sushant [...] was identified. 08/05/2024 by Sushant Colmenares APRN.CNP [facility]06-15-2025 NoteHNO ID: [id number] Author: KENJI MARR PA-C Service: ? Author Type: Physician Pattern Grader Cutter Type: Progress Notes Filed: 08/04/2024 14:47 Note Text: This note was created using SMB Suiter[employer]. Subjective Kacey Bentley is a 64 year old male. Patient is a 64-year-old male who arrives for evaluation of redness and swelling to his left hand secondary to a dog bite injury that he sustained yesterday evening. Patient reports that he was at home trying to separate his 2 dogs while they were fighting when his [place] Ang quickly bit his radial left hand. [...] is current and that all of his [place] Ang's immunizations are also current. Patient has [...] the left index finger secondary to pain. 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 Neurological: General: [...] Diagnostic procedures: low Management options: low [facility]06-15-2025 History of Present illness Narrative* Kenji Marr PA-C - 08/04/2024 2:41 PM EDT This note was created using SMB Suit[employer]. Subjective Kacey Bentley is a 64 year old male. Patient is a 64-year-old male who arrives for evaluation of redness and swelling to his left hand secondary to a dog bite injury that he sustained yesterday evening. Patient reports that he was at home trying to separate his 2 dogs while they were fighting when his [place] Ang quickly bit his radial left hand. [...] is current and that all of his [place] Ang's immunizations are also current. Patient has [...] the left index finger secondary to pain. 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 Neurological: General: [...] low Diagnostic procedures: low Management options: low Kenji Marr PA-C documented in this encounterCincinnati [facility]06-13-2025 Telephone encounter Note * Telephone Encounter - Rand Villegas MA - 08/02/2024 3:36 PM EDT Images from the original note were not included. See QR Artist message below: JOSE RAMON Bentley Wstr [facility] My Chart Rx Pool Good afternoon, Dr. Haynes. I hope you re had a good week. Jose Ramon needs a refill for the Klonopin precription refill and he is out of the medicatio. We cannot get into see the nurologist or his PA until mid-August and we cannot go that long without it. Thanks you Jonathan [facility]06-13-2025 Telephone encounter Note* Telephone Encounter - Rand Villegas MA - 08/02/2024 3:36 PM EDT See refill request August 02, 2024 [facility]06-13-2025 Miscellaneous Notes* Telephone Encounter - Rand Villegas MA - 08/02/2024 3:36 PM EDT See refill request August 02, 2024 documented in this encounterCincinnati [facility]06-13-2025 Telephone encounter Note * Telephone Encounter - Eveline Curiel OCCA - 08/02/2024 1:34 PM EDT Bridge refill denied. TC to patient to provider scheduling number to see if sooner available with any provider. Patient asking for 7/7 appointment to be cancelled. Done. ENRIQUE Funk [facility]06-13-2025 Miscellaneous Notes* Telephone Encounter - Eveline Curiel [...] 02, 2024 9:05 AM documented in this encounterCincinnati [facility]06-13-2025 Telephone encounter Note * Telephone Encounter - [...] ENRIQUE Funk August 02, 2024 9:05 AM [facility]03-24-2025 Telephone encounter Note* Telephone Encounter - Hanh [...] Daley LPN May 13, 2024 8:42 AM [facility]03-24-2025 Miscellaneous Notes* Telephone Encounter - Hanh Daley [...] 13, 2024 8:42 AM documented in this encounterCincinnati [facility]03-24-2025 Telephone encounter Note * Telephone Encounter - [...] Daley LPN May 13, 2024 8:41 AM [facility]03-24-2025 Miscellaneous Notes* Telephone Encounter - Hanh Daley [...] 13, 2024 8:41 AM documented in this encounterCincinnati [facility]02-18-2025 Telephone encounter Note * Telephone Encounter - Rand Villegas MA - 04/09/2024 8:57 AM EST Pt notified. Rand Villegas MA [facility]02-18-2025 Miscellaneous Notes* Telephone Encounter - Rand Villegas [...] he please have a prescription sent to [facility] in [place]. Thank you. Jonathan. documented in this encounterCincinnati [facility]02-18-2025 Telephone encounter Note * Telephone Encounter - [...] (specify temp.). Authorizing Provider: JULES HAYNES DO [address]17-2025 Telephone encounter Note* Telephone Encounter - Hanh Daley LPN - 04/08/2024 2:30 PM EST Copied from phone encounter. Good morning. Jose Ramon hurt his shoulder muscle and we have tried advil and Tylenol but it does t work as well as my prescription of ibuprofen 800mg I had. Could he please have a prescription sent to [facility] in [place]. Thank you. Jonathan. [address]17-2025 Telephone encounter Note* Telephone Encounter - Hanh Daley LPN - 04/08/2024 2:29 PM EST Turned into phone encounter for pt. [address]17-2025 Miscellaneous Notes* Telephone Encounter - Hanh Daley LPN - 04/08/2024 2:29 PM EST Turned into phone encounter for pt. documented in this encounter[address]17-2025 Telephone encounter Note * Telephone Encounter - [...] Chaney LPN April 08, 2024 9:40 AM [facility]02-17-2025 Miscellaneous Notes* Telephone Encounter - Lilo Chaney [...] 08, 2024 9:40 AM documented in this encounterCincinnati [facility]02-03-2025 NoteHNO ID: [id number] Author: JULES HAYNES, DO Service: ? 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 Need for job coverage for these concerns. Sleep is being managed by Neurologist 4. 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 Need for job coverage for these concerns. Sleep is being managed by Neurologist 5. 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 Need for job coverage for these concerns. Sleep is being managed by Neurologist 6. 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 Need for job coverage for these concerns. Sleep is being managed by Neurologist 4. 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 Need for job coverage for these concerns. Sleep is being managed by Neurologist 5. 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 Need for job coverage for these concerns. Sleep is being managed by Neurologist 6. 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 Need for job coverage for these concerns. Sleep is being managed by Neurologist Jules Haynes DO I spent 35 minutes in the visit, with more than 50% of the total [id number] time of the visit in counseling / coordination of care. Return if no improvement. Follow up with Jules Haynes DO. To ER if develops chest pain, shortness of breath. Discussed risks, benefits, alternatives, and potential side effects of medications. Patient/Guardian expressed understanding and agreed with the plan. See patient instructions. Jules Haynes DO [address] [place] [address] documented in this encounterCincinnati [facility]12-30-2024 Telephone encounter Note * Telephone Encounter - [...] ENRIQUE Funk February 19, 2024 3:48 PM [facility]12-30-2024 Miscellaneous Notes* Telephone Encounter - Eveline Curiel [...] 19, 2024 3:48 PM documented in this encounterCincinnati [facility]12-23-2024 Telephone encounter Note * Telephone Encounter - [...] Chaney LPN February 12, 2024 3:55 PM [facility]12-23-2024 Miscellaneous Notes* Telephone Encounter - Lilo Chaney [...] 12, 2024 3:55 PM documented in this encounterCincinnati [facility]11-21-2024 Telephone encounter Note * Telephone Encounter - [...] Sellers LPN January 11, 2024 11:41 AM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 this encounterCincinnati Children'S Hospital [facility] Center08-17-2023 Instructions* Patient Instructions* Virginia Lyon APRN.CNP - 10/06/2022 11:57 AM EDT Schedule your sleep study. Start the Minipress-fine to take with amitriptyline. documented in this encounterCincinnati Children'S [facility] Center08-17-2023 History of Present illness Narrative* Virginia Lyon [...] - CONSULT TO SLEEP SURGERY-ADULT Virginia Lyon APRN.STREET LIGHT REPAIRER HELPER documented in this encounterCincinnati Children'S Hospital [facility] Center07-29-2023 Discharge summary Author Brett Marcus [facility] September 17, 2022 3:48am Note Date/Time September 17, 2022 2:01 am [facility] System Medical Records Department [address] [place] [address] Emergency Department Summary 09/17/22 MR#: [id number] Acct: [id number] Name: KACEY BENTLEY Rep #:[id number] : 1960 62 From: Brett Marcus MD [...] his upper back more to the right. [facility] Medical History BPH (benign prostatic hyperplasia) CPAP [...] deficits noted Neuro Narrative: Seems mildly intoxicated. [place] Coma Scale: document GCS findings Spontaneous Obeys [...] % (Auto) 54.5 Lymph % (Auto) 33.7 [place] % (Auto) 8.0 Eos % (Auto) 3.0 [...] your Primary Care Provider. Call [facility] ([phone]) or report to the closest Emergency Room. Call 911 if necessary. 09/17/22 0348 <Electronically signed by Brett Marcus MD> Cosigner Signature (if applicable): CC: Dr. Jules Haynes DO ~ Signed [facility] Work Phone: 1(705) 952-844907-19-2023 Instructions* Patient Instructions* Jessica French APRN.CNP - 09/07/2022 1:49 PM EDT Get labs completed today Increase water intake 8-10 glasses per day Follow up pending test results or sooner as needed. documented in this encounterCincinnati Children'[facility] Center07-19-2023 History of Present illness Narrative* Jessica French APRN.CNP - 09/07/2022 1:20 PM EDT This is a 62 year old male who presents today with: Patient presents with: Follow Up: ER follow up HISTORY OF PRESENT ILLNESS: Kacey Bentley is a 62 year old male. Patient presents with: Follow Up: ER follow up HOSPITAL/ER FOLLOW UP: Reason for visit: Abdominal pain Which facility[facility] Er Date of visit: 09/05/2022 Diagnosis: Abdominal [...] discussed and patient voices understanding. Jessica French APRN.STREET LIGHT REPAIRER HELPER This note was partially generated using Dazo voice recognition system. Note was reviewed for accuracy. There may be minor misspellings or grammar miscues with Dazo voice recognition. documented in this encounterCincinnati Children'[facility]04-28-2023 Instructions* Patient Instructions* Adam Galvez MD - 06/17/2022 4:43 PM EDT I would recommend you get scheduled for an EGD with Dr. Han or Dr. Doherty with anesthesia to ensure that you are fully out for the procedure. You can call Ms. Chaney at [phone] to schedule - we need t make srue this is done with anesthesia 2. Start omeprazole 20mg daily - take 30 min before breakfast 3. Increase amitriptyline to 20mg at night - we can increase the dose every 2 weeks - this can helpwith your bowel movement 4. Return to clinic in 4 months - you can call [phone] to schedule documented in this encounterCincinnati [facility]04-28-2023 History of Present illness Narrative* Adam Galvez MD - 06/17/2022 4:30 PM EDT VIRTUAL VISIT FOLLOW UP I have communicated my name and active licensure. The patient's identity and physical location wereverified at the time of this visit. Either the patient or their legal territory account representative has been informed of the risks [...] months Adam Galvez MD documented in this encounterCincinnati Children'S [facility] Center12-12-2022 Miscellaneous Notes* Telephone Encounter - Rand Villegas Ma - 01/31/2022 10:55 AM EST Last office visit: 01/05/22 F/u scheduled: none Rand Villegas Ma documented in this encounterCincinnati Children'S [facility] Center11-16-2022 History of Present illness Narrative* Virginia Lyon APRN.CNP - 01/05/2022 9:02 AM EST VIRTUAL VISIT PROGRESS NOTE This is a virtual visit using Cobook video visit. It required patient-provider interaction for themedical decision making as documented below. Kacey Bentley is a 61 year old male seen for 6 week follow up. Per appointment with Rosalina Perez CNP on 11/26/2021: CHRISTOPHER-- Was on Prozac 40 mg daily. Rice he didn't need it anymore after getting [...] insomnia r/t nightmares. Will contact patient via In[employer] to discuss any possible treatment. Virginia Lyon APRN.CNP documented in this encounterCincinnati Children'S [facility] Center11-08-2022 Nurse Note* Kash Gold LPN - 12/28/2021 [...] RN In Department: GASTROENTEROLOGY documented in this encounterCincinnati Children'S [facility] Center11-08-2022 History and physical note * Adam Galvez [...] None Adam Galvez MD documented in this encounterCincinnati Children'S [facility] Center11-01-2022 Miscellaneous Notes* Telephone Encounter - Damaris Norton RN - 12/21/2021 4:16 PM EDT Attempted to reach the patient at the contact number that they provided [phone] (home) [phone] (work) . Unable to speak with patient so without identifying the patient the following information was left on their voice mail: Date of procedure, location and report time Instructions to contact their primary care provider regarding their medications and which medications to stop in preparation for their procedure Number to call with questions or concerns [phone] Number to call to cancel their procedure [phone] Damaris Norton RN documented in this encounterCincinnati Children'[facility] Center10-07-2022 History of Present illness Narrative* Rosalina Perez APRN.STREET LIGHT REPAIRER HELPER - 11/26/2021 12:27 PM EDT Chief Complaint Patient presents with: follow up urgent care: Dx with ringworm, states was unable to get marcs here in town does not have it HPI Kacey Bentley is a 61 year old male who presents here today for Above Complaints. Kacey is an established patient of Dr. Haynes, and myself. Concerns today.. UC follow-up --- Seen in [facility] on 11/24/21 due to rash on chest. [...] weeks of treatment. Today... Stable. Unable to picket labor union clotrimazole ointment due to not available at [facility]. Not available OTC orprescription. Pt asking to resend to another pharmacy. Rash/ring worm remains the same. No worse but no better. Still no itchiness. No cats but does have dog that could have gave it to him. CHRISTOPHER-- Was on Prozac 40 mg daily. Rice he didn't need it anymore after getting [...] Patient agreeable to treatment plan. Rosalina Perez APRN.STREET LIGHT REPAIRER HELPER [address] [place] [address] documented in this encounterCincinnati Children'S [facility] Center10-05-2022 Instructions* Patient Instructions* Luz Elena Edouard APRN.CNP [...] 4-6 weeks of treatment. documented in this encounterCincinnati Children'S [facility] Center10-05-2022 History of Present illness Narrative* Luz Elena Edouard APRN.CNP - 11/24/2021 4:42 PM EDT Images from the original note were not included. Subjective The history is provided by the patient. No pediatric speech language pathologist was used. HPI Kacey Bentley is a [...] have confirmed and edited as necessary, the [facility] Review of Systems Constitutional: Negative for chills [...] Luz Elena Edouard APRN.CNP documented in this encounterCincinnati Children'S [facility] Center09-27-2022 History of Present illness Narrative* Virginia Horner [...] - Goal of BP <130/80 Virginia Horner APRN.CNP Prescription instructions reviewed with patient as applicable. [...] which included preparing to see the patient, pmbk-yu-yeua patient care, completing clinical documentation, obtaining and/or reviewing separately obtained history, performing a medically appropriate examination, and counseling and educating the patient/family/caregiver. documented in this encounterCincinnati Children'S [facility] Center09-19-2022 Instructions* Patient Instructions* Adam Galvez MD - [...] before bed. Can you send me a Cobook message in 2-4 weeks? We can increase the dose every 2 weeks if needed 3. Return to clinic in 4-6 months documented in this encounterCincinnati Children'S [facility] Center09-19-2022 History of Present illness Narrative* Adam Galvez [...] negative colonoscopy with biopsieslast year. He fits [place] IV criteria for IBS RECOMMENDATION: --EGD with esophageal dilation --He will start amitriptyline 10mg QHS for IBS-D (Ramy et al, APT 2008) --RTC in 4-6 months Adam Galvez MD November 08, 2021 4:01 PM documented in this encounterCincinnati Children'S [facility] Center09-08-2022 Miscellaneous Notes* Telephone Encounter - Jennifer Mccarthy [...] concerns Jules Haynes DO documented in this encounterCincinnati Children'S [facility] Center09-07-2022 Miscellaneous Notes* Telephone Encounter - Adrienne Gomez [...] Patient would like script sent to [facility] not [facility] pended please sign Adrienne [...] daily at bedtime. Authorizing Provider: ROSALINA PEREZ APRN.TMIUR documented in this encounterCincinnati Children'S [facility] Center09-01-2022 Miscellaneous Notes* Telephone Encounter - PALMER Funk [...] Please see pt message documented in this encounterCincinnati Children'S Hospital [facility] Center09-01-2022 Miscellaneous Notes* Telephone Encounter - Hanh Daley LPN - 10/21/2021 10:31 AM EDT Pt notified of such. * Telephone Encounter - Rosalina Perez APRN.CNP - 10/21/2021 10:12 AM EDT Noted. Orders placed. If still elevated, need to consider restarting Crestor. Thank you, Rosalina Perez APRN.TIMUR * Telephone Encounter - Hanh Daley LPN [...] you, Rosalina Perez APRN.CNP documented in this encounterCincinnati Children'S [facility] Center08-31-2022 Instructions* Patient Instructions* Rosalina Perez APRN.CNP - 10/20/2021 3:39 PM EDT Schedule thyroid US Get blood work done. Follow-up with GI Dr. Galvez about surgery. documented in this encounterCincinnati Children'S Hospital [facility] Center08-31-2022 History of Present illness Narrative* Rosalina Perez APRN.CNP - 10/20/2021 3:00 PM EDT Chief Complaint Patient presents with: ER F/U: Was seen at [facility] for cellulitis . States stepped on a nail. HPI Kacey Bentley is a 61 year old male who presents here today for Above Complaints. Kacey is an established patient of Dr. Dallas DO. Kacey is a new patient to me today. Concerns today.. ER Follow-up -- [facility] ED visit on 09/25/21 d/t cellulitis of [...] report. Followed up with Dr. Galvez at [facility] that noted significant ring at the [...] restart medication if needed. Was seen by escalator mechanic outside [facility] that said he does nothave [...] occur. Patient agreeable to treatment plan. Rosalina Perez, REJECTOR.STREET LIGHT REPAIRER HELPER [address] [place] [address] documented in this encounterC[facility] Miscellaneous Notes* Telephone Encounter - Za Oliveira RN - 09/25/2021 7:42 PM EDT Reason for call: Puncture of left foot with chato nail Outcome: Patient advised to go to the ED within the next 4 hours for evaluation. Patient verbalizesunderstanding and agreeable, will go [facility]. Reason for Disposition [1] Puncture wound [...] date 7. : N/A Protocols used: Puncture [id number] documented in this encounterCincinnati [facility]06-07-2022 History of Present illness Narrative* Mariana Weller APRN.CNP - 07/27/2021 8:29 AM EDT Images from the original note were not included. Subjective Patient came in with complaints of bleeding wound. patient cut himself with punning morgan yesterday and a steri was placed and patient is bleeding through the bandage. patient does have factor five. The history is provided by the patient. No pediatric speech language pathologist was used. Review of Systems Constitutional: Negative. [...] bleeding. Mariana Weller APRN.TIMUR documented in this encounterCincinnati [facility]06-06-2022 History of Present illness Narrative* Katherin English APRN.TIMUR - 07/26/2021 4:30 PM EDT Images from [...] history is provided by the patient. No pediatric speech language pathologist was used. Review of Systems Constitutional: Negative [...] increased pain NOBLE Hansen student TEACHING PROVIDER (Physician/PA/REJECTOR) NOTE OF PERSONAL INVOLVEMENT IN CARE: I have personally seen and examined the patient and performed the medical decision-making components. I have reviewed the Advanced Practice Registered Nurse (REJECTOR) Student's documentation and verified the findings in the note as written. Any additions or changes are noted in bold/italics. Signature: Katherin English Date: 07/26/2021 Time: 7:24 PM documented in this encounterCincinnati [facility]06-06-2022 Instructions* Patient Instructions* Chantell Sidhu - 07/26/2021 4:26 PM EDT ASSESSMENT/PLAN: 1. Laceration of left forearm, initial encounter - ICD9: 881.00, ICD10: S51.812A -Wound cleansed and steri-strip applied. -Leave steri-strip in place until it falls off -Return with signs of infection: redness, warmth, increased pain NOBLE Hansen student documented in this encounterCincinnati [facility]01-08-2021 History of Present illness Narrative* Judy Felton (Rt), Tech - 02/28/2020 4:20 PM EST Radiology Service Progress Note PATIENT NAME: Kacey MEZAN: [id number] DATE OF SERVICE: February 28, 2020 TIME: [...] 28, 2020 4:25 PM [facility] Author Brett Marcus [facility] Note Date/Time October 05, 2024 3: 53am [facility] Medical Records Department [address] [place] [address] Emergency Department Summary 10/05/24 MR#: [id number] Acct: [id number] Name: KACEY BENTLEY Rep #:[id number] : 1960 64 From: Brett Marcus MD PCP: Dr. Jules Haynes, DO Status:RE G ER Location: ED HPI HPI - GI History of Present Illness Chief Complaint: Flank Pain Informant: patient and spouse/S.O. Narrative Narrative: 64-year-old male seen here a month ago for pain in the left flank he had a negative CT, and he tells me that 4 days ago he had a procedure with [facility] urologyin which he had a stent placed on the contralateral side and no other procedure done, this was done at [facility] in [place]. She states ever since the stent was placed on the right side has been having pain on the left and gross hematuria with clots and no retention. He presents at 1 AM for this, he states he has not contacted his urologist about any of the symptoms she had. States heis in a lot of pain. He denies any fevers, chills, nausea, vomiting. Pain radiates into his back on both sides, feels like my kidneys are punched. He states he is on a prophylactic antibiotic, was not diagnosed with any infection but trying to prevent 1. He is still on it and compliant with it. Prior to theprocedure he was taken a baby aspirin and advised to stop that, he is still off of it and taking no other antiplatelet or anticoagulant medications. [facility] Medical History BPH (benign prostatic hyperplasia) GERD (gastroesophageal reflux disease) Factor 5 Leiden mutation, heterozygous CPAP (continuous positive airway pressure) dependence Sleep apnea Home Medications ?Medication ?Instructions ?Recorded [...] mg PO DAILY 09/17/22 Unkn own History ciprofloxacin HCl 250 mg tablet 250 mg PO Q12H 7 days #14 tabs 10/05/24 Unknown Rx oxycodone-acetaminophen 5 mg-325 1 tab PO Q6H PRN PRN Pain 3 days 10/05/24 Unknown Rx mg tablet #12 TABLETS Allergy/AdvReac Type Severity Reaction Status Date / Time No Known Allergies Allergy Verified 10/05/24 00:52 Family History Father Heart disease Hypertension Mother COPD (chronic obstructive pulmonary disease) Surgical History H/O excision of mass Social History household members: spouse housing: house Smoking Status: Former smoker alcohol intake: current details: drinks 5-6 shots of whisky a day substance use type: marijuana ROS ROS ED Constitutional Constitutional ED: Denies chills or fever(s) Eyes Eyes: Denies change in vision or diplopia ENT ENT ED: Denies rhinorrhea or sore throat Cardiovascular Cardiovascular: Denies chest pain or palpitations Respiratory/Chest Respiratory/Chest: Denies cough or dyspnea Gastrointestinal Gastrointestinal: Reports abdominal pain; Denies diarrhea, nausea or vomiting Genitourinary Genitourinary ED: Reports flank pain and hematuria; Denies difficulty urinating or dysuria Musculoskeletal Musculoskeletal: Reports back pain; Denies neck pain Integumentary Denies abscess or rash Neurologic Neurologic: Denies headache(s), paresthesias or weakness Psychiatric Psychiatric: Denies anxiety or suicidal thoughts EXAM Physical Exam Const Vital Signs: 10/05/24 00:50 10/05/24 02:52 Temperature 98 F Temperature Source Oral Pulse Rate 71 73 Respiratory Rate 18 Blood Pressure 160/80 H Blood Pressure Mean 106 Pulse Ox 100 96 Oxygen Delivery Method Room Air Room Air Positive well nourished and well developed General Appearance ED: well developed and NAD HEENT Reports moist mucous membranes normocephalic and atraumatic Eyes PERRL and EOMs intact bilaterally Neck full ROM and supple Resp normal respiratory effort and clear to auscultation bilaterally Cardio regular rate, regular rhythm and no murmurs GI non-tender and non-distended Auscultation: normoactive bowel sounds Palpation: soft Back/Spine no CVA tenderness General Back: other FROM Extremity normal to inspection General Extremety ED: Negative for edema, pulses abnormal or tenderness General Extremity: Negative for edema or pulses abnormal Neuro oriented x3, CN's II-XII intact bilaterally and no sensory deficits noted Sensorium / Orientation: awake and alert Motor Exam: strength 5/5 throughout Psych mental status grossly normal and thought process normal Skin no rashes or lesions noted and no wounds MDM MDM MDM Narrative Medical decision making narrative: Obtained labs and urinalysis, obtained a CT with and without contrast to evaluate right ureteral stent placement, for ureteral obstruction and possible stone, as well as contrast to evaluate renal perfusion. Discussed with the medical office technician for timing of that scan. The labs are noted he has some JEOVANNY with an elevating creatinine, his urine appears to be infected, I reviewed the CT imaging and the results which I agree with, it is basically consistent with hydroureteronephrosis on the left which explains his pain, and given that his urine looks infected I suspect this is pyelonephritis and this is in context of him being on an antibiotic. There is no sign of an obstruction on this CT. Senturine culture and treat empirically with IV Rocephin 1 g. With that and his AKII discussed with the patient and family about discussing with urology. If they need to be transferred they prefer to go to [facility] where he was before as opposed to staying here. Therefore discussed with Dr. Deluca who is on-call for Dr. Price with urology at [facility], discussed the case with him. He advises not transferring or admitting the patient, discharging him changing the antibiotic which he agrees with, and is comfortable with Cipro, and given him some IV fluids here for the mild JEOVANNY and following up closely as an outpatient after the weekend. I was finally able to view some [facility] records, showing H&P from Dr. Price, but not able to see the procedure note for the cystoscopy and bilateral ureteroscopy. Apparently he had a CT on 09/10 at [facility] that showed that the ureters were nondiagnostic and not really visible so that combined with his hematuria it appears that is why they decided to do the scope. I discussed all this with the patient and his significant other they are in agreement and comfortable with that overall plan. We did discuss reasons to return to the ER including intractable pain, fevers/chills/feeling overall more ill, or hematuriawith urinary retention. We did discuss a Holt catheter for the hematuria whichhe declined at this time saying that he can urinate okay. History & Record Review Additional record(s) reviewed:: Prior labs and Other (prior CT a/p 5-6 wks ago negative; F records, see MDM) Lab Data Attestation: I reviewed the patient's lab results. Labs: Laboratory Results - last 24 hr 10/05/24 10/05/24 01:24 02:00 WBC 7.6 RBC 3.70 L Hgb 11.6 L Hct 34.2 L MCV 92.4 MCH 31.4 MCHC 33.9 RDW Std Deviation 42.0 RDW Coeff of Jess[place] 12.4 Plt Count 112 L MPV 9.7 Immature Gran % (Auto) 0.400 Neut % (Auto) 71.5 H Lymph % (Auto) 13.9 L [place] % (Auto) 11.0 H Eos % (Auto) 2.9 Baso % (Auto) 0.3 Absolute Neuts (auto) 5.5 Absolute Lymphs (auto) 1.06 Nucleated RBC % 0 Sodium 140 Potassium 3.9 Chloride 104 Carbon Dioxide 24.8 Anion Gap 11 BUN 19 Creatinine 1.75 H Estim Creat Clear Calc 44.22 L Est GFR (MDRD) Non-Af 42 L BUN/Creatinine Ratio 10.8 Glucose 132 H Calcium 9.1 Urine Color Straw Urine Clarity Sl. Cloudy Urine pH 6.5 Ur Specific [place] 1.010 Urine Protein 100 H Urine Glucose (UA) Normal Urine Ketones Negative Urine Occult Blood 250 H Urine Nitrite Negative Urine Bilirubin Negative Urine Urobilinogen Normal Ur Leukocyte Esterase 500 H Urine RBC 50-100 SEEN Urine WBC 5-10 SEEN Ur Squamous Epith Cells 0 SEEN Urine Bacteria RARE Urine Mucus 0 SEEN Radiography Diagnostic Testing: Clinical Impression(s) from Imaging Studies Abdomen/Pelvis CT 10/05/24 01:35 IMPRESSION: Right nephroureteral stent is in good position. Moderate left hydroureteronephrosis, possibly recent passage of a calculus versus an ascending urinary tract infection. No obstructing stone or drainable abscess formation. Mild diffuse thickening of the bladder, possibly cystitis. Minimal gas density in the lumen of the bladder, possibly recent instrumentation. Mild gastroparesis. Reading Location: [place] [address] Management Discussion w/another healthcare provider: Academic Services Coordinator (urology [facility]) Discharge Plan Triage Chief Complaint: Flank Pain ED Provider: Brett Marcus Dx/Rx/DC Orders Clinical Impression: JEOVANNY (acute kidney injury), Acute pyelonephritis, Ureteral stent present, Hematuria Instructions: ED Pyelonephritis, Male (Adult) Prescriptions: New oxycodone-acetaminophen 5-325 mg tablet 1 tab PO Q6H PRN PRN (Reason: Pain) 3 Days Qty: 12 0RF ciprofloxacin HCl 250 mg tablet 250 mg PO Q12H 7 Days Qty: 14 0RF Continued fluoxetine 10 mg capsule 10 mg PO DAILY finasteride 5 mg tablet 5 mg PO DAILY amitriptyline 10 mg tablet 10 mg PO DAILY omeprazole 20 mg capsule,delayed release(DR/EC) 20 mg PO DAILY rosuvastatin 10 mg tablet 10 mg PO DAILY cyclobenzaprine 10 mg tablet 10 mg PO TID PRN (Reason: Muscle Spasm) Qty: 15 0RF Discontinued tramadol 50 mg tablet 50 mg PO Q6H PRN (Reason: pain) 2 Days Qty: 6 0RF ciprofloxacin HCl 500 mg tablet 500 mg PO BID Qty: 6 0RF Primary Care Provider: Jules Haynes Referrals: Clemencia Price MD [Non-Staff] - As soon as possible Activity Restrictions/Additional Instructions: Discontinue the Ceftin you are taking, and you are going to be taking the ciprofloxacin newly prescribed instead. Print Language: Welsh Disposition Disposition: Home, Self Care What to do if you have Problems For any increased pain, shortness of breath, bleeding, nausea or vomiting, chestpain, or any unexpected problems, contact your Primary Care Provider. Call [facility] ([phone]) or report to the closest Emergency Room. Call 911 if necessary. 10/05/24 0353 <Electronically signed by Brett Marcus MD> Cosigner Signature (if applicable): CC: Dr. Jules Haynes, DO ~ Signed [facility] Work Phone: Evaluation note* Diagnosis Laceration of left forearm, initial encounter- Primary documented in this encounter [facility] note* Diagnosis Visit for wound check- Primary Encounter for other specified aftercare [facility]* Diagnosis Onset Date Resolution Status Cellulitis and abscess of left leg acute Puncture wound of foot, left, complicated acute [facility] Work Phone: Evaluation note* Diagnosis Fatigue, unspecified type- Primary Cellulitis of left lower extremity Cellulitis and abscess of leg, except foot Esophageal dysphagia Dysphagia, pharyngoesophageal phase Subclinical hypothyroidism Other specified acquired hypothyroidism Hypercholesteremia Pure hypercholesterolemia Urinary frequency Irritable bowel syndrome with diarrhea Irritable bowel syndrome [facility]* Diagnosis Hypercholesteremia- Primary Pure hypercholesterolemia documented in this encounter [facility]* Diagnosis Hypercholesteremia Pure hypercholesterolemia [facility]* Diagnosis Subclinical hypothyroidism Other specified acquired hypothyroidism [facility]* Diagnosis Esophageal dysphagia- Primary Dysphagia, pharyngoesophageal phase Irritable bowel syndrome with diarrhea Irritable bowel syndrome documented [facility] this encounter [facility]* Diagnosis Stabbing pain- Primary Pain in limb Elevated BP without diagnosis of hypertension documented in this encounter [facility]* Diagnosis Tinea corporis- Primary Dermatophytosis of the body documented in this encounter [facility] note* Diagnosis Tinea corporis- Primary Dermatophytosis of the body Urinary frequency Anxiety with depression Situational anxiety Other anxiety states documented [facility] this encounter [facility]* Diagnosis Esophageal dysphagia Dysphagia, pharyngoesophageal phase documented in this encounter [facility] note* Diagnosis Anxiety with depression- Primary Nightmares Other dysfunctions of sleep stages or arousal from sleep documented in this encounter [facility] note* Diagnosis Anxiety with depression documented in this encounter [facility] note* Diagnosis Lower esophageal ring (Schatzki)- Primary documented in this encounter [facility] note* Diagnosis Hospital discharge follow-up- Primary Other follow-up examination Abdominal cramping Abdominal pain, unspecified site Night sweats Generalized hyperhidrosis GERD without esophagitis Esophageal reflux Anxiety with depression documented in this encounter [facility] noteNo assessment information availableWKettering Health [facility] Work Phone: Evaluation note* Diagnosis Nightmares- Primary Other dysfunctions of sleep stages or arousal from sleep Fatigue, unspecified type Chronic insomnia Insomnia, unspecified Restless sleeper Sleep disturbance, unspecified BOBBY (obstructive sleep apnea) Obstructive sleep apnea (adult) (pediatric) documented in this encounter [facility] note* Diagnosis Impaired auditory discrimination, left- Primary Closed fracture of nasal bone, initial encounter Chronic rhinitis Deviated nasal septum documented in this encounter [facility]* Diagnosis Hypercholesteremia Pure hypercholesterolemia documented in this encounter [facility] note* Diagnosis Nightmares- Primary Other dysfunctions of sleep stages or arousal from sleep Fatigue, unspecified type Chronic insomnia Insomnia, unspecified Restless sleeper Sleep disturbance, unspecified BOBBY (obstructive sleep apnea) Obstructive sleep apnea (adult) (pediatric) documented in this encounter [facility] note* Diagnosis BOBBY (obstructive sleep apnea)- Primary Obstructive sleep apnea (adult) (pediatric) Excessive daytime sleepiness Dream enactment behavior documented in this encounter [facility] note* Diagnosis BPPV (benign paroxysmal positional vertigo), unspecified laterality- Primary Dizzy Dizziness and giddiness Nausea Nausea alone documented in this encounter [facility] note* Diagnosis CHRISTOPHER (generalized anxiety disorder)- Primary Generalized anxiety disorder Major depressive disorder, recurrent episode, moderate (HCC) Major depressive disorder, recurrent episode, moderate Night terrors Sleep arousal disorder Marijuana use Cannabis abuse, unspecified Alcohol use [facility]* Diagnosis APPOINTMENT CANCELLED- Primary [facility]* Diagnosis Abdominal aortic embolism (HCC)- Primary Other arterial embolism and thrombosis of abdominal aorta [facility]* Diagnosis PTSD (post-traumatic stress disorder)- Primary Posttraumatic stress disorder CHRISTOPHER (generalized anxiety disorder) Generalized anxiety disorder Marijuana use Cannabis abuse, unspecified Alcohol use Night terrors Sleep arousal disorder [facility]* Diagnosis Fatigue, unspecified type- Primary [facility]* Diagnosis Fatigue, unspecified type- Primary BOBBY (obstructive sleep apnea) Obstructive sleep apnea (adult) (pediatric) Vivid dream Other dysfunctions of sleep stages or arousal from sleep Nightmares Other dysfunctions of sleep stages or arousal from sleep Restless sleeper Sleep disturbance, unspecified Night sweats Generalized hyperhidrosis Alcohol abuse Alcohol abuse, unspecified [facility]* Diagnosis Bilateral carotid artery stenosis- Primary Occlusion and stenosis of carotid artery without mention of cerebral infarction Pure hypercholesterolemia 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) Sleep apnea, unspecified type Aneurysm of ascending aorta without rupture (HCC) [facility]* Diagnosis Anxiety with depression [facility]* Diagnosis BOBBY (obstructive sleep apnea)- Primary Obstructive sleep apnea (adult) (pediatric) 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 PLMD (periodic limb movement disorder) Periodic limb movement disorder [facility]* Diagnosis PTSD (post-traumatic stress disorder)- Primary Posttraumatic stress disorder CHRISTOPHER (generalized anxiety disorder) Generalized anxiety disorder Marijuana use Cannabis abuse, unspecified Alcohol use [facility]* Diagnosis Well adult exam- Primary [...] arousal from sleep [facility]* Diagnosis Cortical age-related cataract, bilateral- Primary Myopia, bilateral Myopia Presbyopia [facility]* Diagnosis BOBBY (obstructive sleep apnea)- Primary Obstructive sleep apnea (adult) (pediatric) PLMD (periodic limb movement disorder) Periodic limb movement disorder 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 Anxiety with depression [facility]* Diagnosis NO SHOW- Primary documented in this encounter [facility] note* Diagnosis PLMD (periodic limb movement disorder) Periodic limb movement disorder 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 documented [facility] encounter [facility]* Diagnosis Chest tightness Other chest pain [facility] this encounter [facility]* Diagnosis PLMD (periodic limb movement disorder) Periodic limb movement disorder 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 [facility]* Diagnosis 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 [facility]* Diagnosis Obstructive sleep apnea (adult) (pediatric)- Primary High risk medication use Encounter for long-term (current) use of other medications 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 PLMD (periodic limb movement disorder) Periodic limb movement 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, shift work type documented [facility] this encounter [facility]* Diagnosis Urinary frequency [facility]* Diagnosis Urinary frequency [facility] this [facility]* Diagnosis 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, shift work type [facility] this encounter [facility]* Diagnosis 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 [facility] this [facility]* Diagnosis Fatigue, unspecified type- Primary Need for influenza vaccination Need for prophylactic vaccination and inoculation against influenza BOBBY (obstructive sleep apnea) Obstructive sleep apnea (adult) (pediatric) Anxiety with depression 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 PLMD (periodic limb movement disorder) Periodic limb movement disorder [facility] this encounter [facility]* Diagnosis 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, shift work type [facility] this encounter [facility]* Diagnosis Urinary frequency [facility] encounter [facility]* Diagnosis 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 [facility] Diagnosis Dog bite of left hand, initial encounter- Primary [facility] this [facility]* Diagnosis 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 documented [facility] this [facility]* Diagnosis 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 documented [facility]* Diagnosis 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 Obstructive sleep apnea Obstructive sleep apnea (adult) (pediatric) documented in this [facility]* Diagnosis 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, shift work type documented in this encounter [facility]* Diagnosis Urinary frequency documented in this encounter [facility] note* Diagnosis Gross hematuria- Primary Screening for genitourinary condition Screening for other and unspecified genitourinary condition Personal history of kidney stones Personal history of urinary calculi Benign prostatic hyperplasia with weak urinary stream Gross hematuria documented in this encounter [facility]* Diagnosis Gross hematuria- Primary Gross hematuria- Primary documented in this encounter [facility]* Diagnosis Gross hematuria Gross hematuria- Primary documented in this encounter [facility]* Diagnosis Gross hematuria- Primary documented in this encounter [facility]* Diagnosis Hematuria, unspecified type [R31.9]- Primary Gross hematuria Benign prostatic hyperplasia with weak urinary stream Incomplete bladder emptying Gross hematuria [facility] Work Phone: Hospital Discharge instructionsAdditional Instructions You need to call your urologist to make an appointment for evaluation of blood in your urine. Take Tylenol Motrin as needed for pain. If you have new or worsening symptoms please come back to the ER.[facility] Work Phone: Hospital Discharge instructionsAdditional Instructions Discontinue the Ceftin you are taking, and you are going to be taking the ciprofloxacin newly prescribed instead.[facility] Work Phone: Reason for referral (narrative)* Diagnostic Procedure Only (Routine) - Closed Specialty Diagnoses / Procedures Referred By Contac t Referred To Contact US IMAGING Diagnoses Subclinical hypothyroidism Procedures US THYROID/PARATHYROID ULTRASOUND OF THYROID Jules Haynes DO [address] [place] [address] Us Imaging Referral ID Status Reason Start Date Expiration Date V isits Requested Visits Authorized [id number] Closed Auto-Generate d Referral 11/25/2020 12/25/2021 1 1 [facility] for referral (narrative)* Outpatient Procedure (Routine) - Pending Review Specialty Diagnoses / Procedures Referred By Contac t Referred To Contact [facility] Diagnoses Esophageal dysphagia Procedures EGD - THERAPEUTIC, EUS, OR TUBE INTERVENTIONS EGD DILATION GASTRIC/[place] [address] [place] [address] [place] [address] Referral ID Status Reason Start Date Expiration Date Visits Requested Visits Authorized [id number] Pending Review Auto-Generat ed Referral 11/08/2021 11/08/2022 1 1 T [facility] for referral (narrative)* Outpatient Procedure (Routine) - Denied Specialty Diagnoses / Procedures Referred By Contac t Referred To Contact [facility] Diagnoses Esophageal dysphagia Procedures EGD - THERAPEUTIC, EUS, OR TUBE INTERVENTIONS EGD DILATION GASTRIC/DUODENAL STRICTURE Adam Galvez MD [address] [place] [address] [address] Referral ID Status Reason Start Date Expiration Date V isits Requested Visits Authorized [id number] Denied Auto-Generate d Referral 12/28/2021 11/08/2022 1 0 [facility] for referral (narrative)* Outpatient Procedure (Routine) - Pending Review Specialty Diagnoses / Procedures Referred By Contac t Referred To Contact [facility] Diagnoses Lower esophageal ring (Schatzki) Procedures EGD - THERAPEUTIC, EUS, OR TUBE INTERVENTIONS EGD DILATION GASTRIC/DUODENAL STRICTURE Adam Galvez MD [address] [place] [address] [facility] [address] [place], [place] [id number] Referral ID Status Reason Start Date Expiration Date Visits Requested Visits Authorized [id number] Pending Review Auto-Generat ed Referral 06/17/2022 06/18/2023 1 1 [facility] for referral (narrative)* Diagnostic Procedure Only (Routine) - Incomplete Specialty Diagnoses / Procedures Referred By Shaunnaac t Referred To Contact US IMAGING Diagnoses BPPV (benign paroxysmal positional vertigo), unspecified laterality Dizzy Nausea Procedures US CAROTID BILATERAL Virginia Lyon APRN.STREET [employer]IGHT REPAIRER HELPER [address] [place] [address] Us Imaging [facility] Referral ID Status Reason Start Date Expiration Date Visits Requested Visits Authorized [id number] Incomplete Auto-Generat ed Referral 12/21/2022 01/20/2024 1 1 * Outpatient Procedure (Routine) - Authorized Specialty Diagnoses / Procedures Referred By Shaunnaac t Referred To Contact [facility] Diagnoses BPPV (benign paroxysmal positional vertigo), unspecified laterality Dizzy Nausea Procedures US CAROTID ARTERIES [facility] DUPLEX SCAN EXTRACRANIAL ART COMPL BI STUDY Virginia Lyon APRN.STREET LIGHT REPAIRER HELPER [address] [place] [address] [facility] [place] [address] [place] [address] Referral ID Status Reason Start Date Expiration Date Visits Requested Visits Authorized [id number] Authorized Auto-Generat ed Referral 12/21/2022 12/21/2023 1 1 * Outpatient Procedure (Routine) - Authorized Specialty Diagnoses / Procedures Referred By Contac t Referred To Contact [facility] Diagnoses BPPV (benign paroxysmal positional vertigo), unspecified laterality Dizzy Nausea Procedures ECG COMPLETE ECG ROUTINE ECG W/LEAST 12 LDS W/I&R Virginia Lyon APRN.CNP [address] [place] [address] [address] Referral ID Status Reason Start Date Expiration Date Visits Requested Visits Authorized [id number] Authorized Auto-Generat ed Referral 12/21/2022 12/21/2023 1 1 [facility] for referral (narrative)* Outpatient Procedure (Routine) - Authorized Specialty Diagnoses / Procedures Referred By Contac t Referred To Contact [facility] Diagnoses Abdominal aortic embolism (HCC) Procedures ECG COMPLETE ECG ROUTINE ECG W/LEAST 12 LDS W/I[place] [address] [place], [place] [id number] [place] [id number] Referral ID Status Reason Start Date Expiration Date Visits Requested Visits Authorized [id number] Authorized Auto-Generat ed Referral 01/30/2024 1 1 [facility] for referral (narrative)No reason for referral information availableWKettering Health Hamilton Work Phone: [facility] [place] for visit Narrative* Diagnostic Procedure Only (Routine) - Closed Specialty Diagnoses / Procedures Referred By Contac t Referred To Contact US IMAGING Diagnoses Subclinical hypothyroidism Procedures US THYROID/PARATHYROID ULTRASOUND OF THYROID Jules Haynes DO [address] [place] [address] Us Imaging Referral ID Status Reason Start Date Expiration Date V isits Requested Visits Authorized [id number] Closed Auto-Generate d Referral 11/25/2020 12/25/2021 1 1 [facility] for visit Narrative* Outpatient Procedure (Routine) - Denied Specialty Diagnoses / Procedures Referred By Contjennifer t Referred To Contact [facility] Diagnoses Esophageal dysphagia Procedures EGD - THERAPEUTIC, EUS, OR TUBE INTERVENTIONS EGD DILATION GASTRIC/DUODENAL STRICTURE Adam Galvez MD [address] [place] [address] [facility] [address] [place] [address] Referral ID Status Reason Start Date Expiration Date V isits Requested Visits Authorized [id number] Denied Auto-Generate d Referral 12/28/2021 11/08/2022 1 0 [facility] Advance Directives Documents on File Type Date Recorded Patient Settlement Worker Expl anation Advance Directive(s) 07/09/2020 6:33 AM Advance Directive Response Recorded Date/ Time Living Will No September 25, 2021 10:28pm Power of Cam Specialist No September 25 10:28pm Advance Directive Response Recorded Date/ Time Living Will No September 17, 2022 1:30am Power of Cam Specialist No September 17 1:30am Advance Directive Response Recorded Date/ Time Do you have a Healthcare Power of Cam Specialist? No August 18, 2024 8:13pm Advance Directive Response Recorded Date/ Time Do you have a Healthcare Power of Cam Specialist? No August 18, 2024 8:13pm Do you have a Healthcare Power of Cam Specialist? No October 05, 2024 12:52am Chief Complaint and Reason for Visit Chief [...] pain, hematuria August 18, 2024 8:07 pm Chief Complaint Admit Date abd pain, hematuria August 18, 2024 8:07 pm Flank pain October 05, 2024 12 :50am Family History Relationship Condition Age at Onset Recorded Date/T [...] Intraprocedure Given 12/28/2021 10:06 AM EST 1 [place] diazePAM injection (VALIUM) X (OR/PROCEDURE) PRN, Starting [...] Procedures CONSULT TO SLEEP SURGERY-ADULT Virginia Lyon, REJECTOR.STREET LIGHT REPAIRER HELPER [address] [place] [address] Referral ID Status Reason Start Date Expiration Date Visits Requested Visits Authorized [id number] Ref Not Required PCP Requested Referral 10/06/2022 09/27/2023 1 1 Specialty Diagnoses / Procedures Referred By Mohan barboza Referred To Contact Diagnoses Impaired auditory discrimination, left Procedures HEARING TEST/AUDIOGRAM COMPRE AUDIOMETRY THRESHOLD EVAL Nando Bangura MD [address] [place] [address] [facility] [address] [place] [address] Referral ID Status Reason Start Date Expiration Date Visits Requested Visits Authorized [id number] Authorized Auto-Generat ed Referral 11/01/2022 01/30/2023 1 1 Referral ID Status Reason Start Date Expiration Date Visits Requested Visits Authorized [id number] Ref Not Required PCP Requested Referral 11/22/2023 1 1 Specialty Diagnoses / Procedures Referred By Contac t Referred To Contact Ent - Otolaryngology Diagnoses BOBBY (obstructive sleep apnea) Excessive daytime sleepiness Dream enactment behavior Procedures CONSULT TO ENT OFFICE/OUTPATIENT [facility] 60-74 [place] [address] [place] [address] Referral ID Status Reason Start Date Expiration Date Visits Requested Visits Authorized [id number] Authorized PCP Requested Referral 12/16/2023 1 1 Specialty Diagnoses / Procedures Referred By Contac t Referred To Contact Diagnoses Fatigue, unspecified type BOBBY (obstructive sleep apnea) Vivid dream Nightmares Restless sleeper Night sweats Procedures CONSULT TO SLEEP MEDICINE - ADULT OFFICE/OUTPATIENT [facility] MDM 60 MINUTES Virginia Lyon APRN.[facility] [address] [place] [address] Referral ID Status Reason Start Date Expiration Date Visits Requested Visits Authorized [id number] Authorized PCP Requested Referral 03/31/2023 03/30/2024 1 1 Specialty Diagnoses / Procedures Referred By Contac t Referred To [facility] Procedures CARDIOVASCULAR MEDICINE OP FOLLOW UP APPT ORDER Edinson Stinson MD [address] [place] [address] [facility] [place] [address] [place] [address] Referral ID Status Reason Start Date Expiration Date Visits Requested Visits Authorized [id number] Ref Not Required PCP Requested Referral 11/21/2023 05/21/2024 1 1 Specialty Diagnoses / Procedures Referred By Contac t Referred To Contact Dentistry Diagnoses BOBBY (obstructive sleep apnea) RBD (REM behavioral disorder) PLMD (periodic limb movement disorder) Procedures CONSULT TO DENTISTRY OFFICE/OUTPATIENT [facility] 60 MINUTES Jorge Reddy Jr., MD [address] [id number] Madhavi Perea, DMD [address] [place] [address] Referral ID Status Reason Start Date Expiration Date Visits Requested Visits Authorized [id number] Pending Review PCP Requested Referral 06/23/2023 06/22/2024 1 1 Specialty Diagnoses / Procedures Referred By Contac t Referred To Contact Optometry Diagnoses Vision abnormalities Procedures CONSULT TO OPTOMETRY OFFICE/OUTPATIENT [facility] 60 MINUTES Jules Haynes DO [address] [place] [address] Referral ID Status Reason Start Date Expiration Date Visits Requested Visits Authorized [id number] Authorized PCP Requested Referral 07/31/2023 07/30/2024 1 1 Specialty Diagnoses / Procedures Referred By Contac t Referred To Contact Dentistry Diagnoses Obstructive sleep apnea (adult) (pediatric) Procedures CONSULT TO DENTISTRY OFFICE/OUTPATIENT [facility] 60 MINUTES Jorge Reddy Jr., MD [address] [place] [address] Referral ID Status Reason Start Date Expiration Date Visits Requested Visits Authorized [id number] New Request PCP Requested Referral 01/07/2025 1 1 Summary Purpose Additional Source Comments Source Comments (unrecognize d section and content) In the event this informatio n is protected by the Federal Confidentiality of Alcohol and Drug Abuse Patient Records regulations: The Federal rules restrict any use of the information to criminally investigate or prosecute any alcohol or drug abuse patient.[facility] the event this information is protected by the Federal Confidentiality of Alcohol and Drug Abuse Patient Records regulations: The Federal rules restrict any use of the information to criminally investigate or prosecute any alcohol or drug abuse patient.[facility] the event this information is protected by the Federal Confidentiality of Alcohol and Drug Abuse Patient Records regulations: The Federal rules restrict any use of the information to criminally investigate or prosecute any alcohol or drug abuse patient.[facility] CenterIn the event this information is protected by the Federal Confidentiality of Alcohol and Drug Abuse Patient Records regulations: The Federal rules restrict any use of the information to criminally investigate or prosecute any alcohol or drug abuse patient.[facility] CenterIn the event this information is protected by the Federal Confidentiality of Alcohol and Drug Abuse Patient Records regulations: The Federal rules restrict any use of the information to criminally investigate or prosecute any alcohol or drug abuse patient.[facility] CenterIn the event this information is protected by the Federal Confidentiality of Alcohol and Drug Abuse Patient Records regulations: The Federal rules restrict any use of the information to criminally investigate or prosecute any alcohol or drug abuse patient.[facility] CenterIn the event this information is protected by the Federal Confidentiality of Alcohol and Drug Abuse Patient Records regulations: The Federal rules restrict any use of the information to criminally investigate or prosecute any alcohol or drug abuse patient.[facility] CenterIn the event this information is protected by the Federal Confidentiality of Alcohol and Drug Abuse Patient Records regulations: The Federal rules restrict any use of the information to criminally investigate or prosecute any alcohol or drug abuse patient.[facility] CenterIn the event this information is protected by the Federal Confidentiality of Alcohol and Drug Abuse Patient Records regulations: The Federal rules restrict any use of the information to criminally investigate or prosecute any alcohol or drug abuse patient.[facility] CenterIn the event this information is protected by the Federal Confidentiality of Alcohol and Drug Abuse Patient Records regulations: The Federal rules restrict any use of the information to criminally investigate or prosecute any alcohol or drug abuse patient.[facility] CenterIn the event this information is protected by the Federal Confidentiality of Alcohol and Drug Abuse Patient Records regulations: The Federal rules restrict any use of the information to criminally investigate or prosecute any alcohol or drug abuse patient.[facility] CenterIn the event this information is protected by the Federal Confidentiality of Alcohol and Drug Abuse Patient Records regulations: The Federal rules restrict any use of the information to criminally investigate or prosecute any alcohol or drug abuse patient.[facility] CenterIn the event this information is protected by the Federal Confidentiality of Alcohol and Drug Abuse Patient Records regulations: The Federal rules restrict any use of the information to criminally investigate or prosecute any alcohol or drug abuse patient.[facility] CenterIn the event this information is protected by the Federal Confidentiality of Alcohol and Drug Abuse Patient Records regulations: The Federal rules restrict any use of the information to criminally investigate or prosecute any alcohol or drug abuse patient.[facility] CenterIn the event this information is protected by the Federal Confidentiality of Alcohol and Drug Abuse Patient Records regulations: The Federal rules restrict any use of the information to criminally investigate or prosecute any alcohol or drug abuse patient.[facility] CenterIn the event this information is protected by the Federal Confidentiality of Alcohol and Drug Abuse Patient Records regulations: The Federal rules restrict any use of the information to criminally investigate or prosecute any alcohol or drug abuse patient.[facility] CenterIn the event this information is protected by the Federal Confidentiality of Alcohol and Drug Abuse Patient Records regulations: The Federal rules restrict any use of the information to criminally investigate or prosecute any alcohol or drug abuse patient.[facility] CenterIn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 General Family Medicine 06/02/15 Jules Haynes DO [address] [place] [address] Family Medicine 03/05/13 Parts Designer Relationship Specialty Start Date End Date Jules Haynes DO [address] [place] [address] PCP - General Family Medicine 06/02/15 Jules Haynes, [address] [place] [address] Family Medicine 03/05/13 Parts Designer Relationship Specialty Start Date End Date Jules Haynes DO [address] [place] [address] PCP - General Family Medicine 06/02/15 Jules Haynes, DO [address] [place] [address] Family Medicine 03/05/13 Parts Designer Relationship Specialty Start Date End Date Jules Haynes, [address] [place] [address] PCP - General Family Medicine 06/02/15 Jules Haynes DO [address] [place] [address] Family Medicine 03/05/13 Parts Designer Relationship Specialty Start Date End Date Jules Haynes, [address] [place] [address] PCP - General Family Medicine 06/02/15 Jules Haynes DO [address] [place] [address] Family Medicine 03/05/13 Parts Designer Relationship Specialty Start Date End Date Jules Haynes DO [address] [place] [address] PCP - General Family Medicine 06/02/15 Jules Haynes DO [address] [place] [address] Family Medicine 03/05/13 Parts Designer Relationship Specialty Start Date End Date Jules Haynes DO [address] [place] [address] PCP - General Family Medicine 06/02/15 Jules Haynes, [address] [place] [address] Family Medicine 03/05/13 Parts Designer Relationship Specialty Start Date End Date Jules Haynes DO [address] [place] [address] PCP - General Family Medicine 06/02/15 Jules Haynes, [address] [place] [address] Family Medicine 03/05/13 Parts Designer Relationship Specialty Start Date End Date Jules Haynes, [address] [place] [address] PCP - General Family Medicine 06/02/15 Jules Haynes DO [address] [place] [address] Family Medicine 03/05/13 Parts Designer Relationship Specialty Start Date End Date Jules Haynes DO [address] [place] [address] PCP - General Family Medicine 06/02/15 Jules Haynes DO [address] [place] [address] Family Medicine 03/05/13 Parts Designer Relationship Specialty Start Date End Date Jules Haynes DO [address] [place] [address] PCP - General Family Medicine 06/02/15 Jules Haynes, [address] [place] [address] Family Medicine 03/05/13 Parts Designer Relationship Specialty Start Date End Date Jules Haynes DO [address] [place] [address] PCP - General Family Medicine 06/02/15 Jules Haynes DO [address] [place] [address] Family Medicine 03/05/13 Edinson Stinson MD [address] [place] [address] Primary Staff Physician Cardiology 05/22/23 Parts Designer Relationship Specialty Start Date End Date Jules Haynes DO [address] [place] [address] PCP - General Family Medicine 06/02/15 Jules Haynes DO [address] [place] [address] Family Medicine 03/05/13 Edinson Stinson MD [address] [place] [address] Primary Staff Physician Cardiology 05/22/23 Parts Designer Relationship Specialty Start Date End Date Jules Haynes DO [address] [place] [address] PCP - General Family Medicine 06/02/15 Jules Haynes DO [address] [place] [address] Family Medicine 03/05/13 Edinson Stinson MD [address] [place] [address] Primary Staff Physician Cardiology 05/22/23 Parts Designer Relationship Specialty Start Date End Date Jules Haynes DO [address] [place] [address] PCP - General Family Medicine 06/02/15 Jules Haynes DO [address] [place] [address] Family Medicine 03/05/13 Edinson Stinson MD [address] [place] [address] Primary Staff Physician Cardiology 05/22/23 Parts Designer Relationship Specialty Start Date End Date Jules Haynes DO [address] [place] [address] PCP - General Family Medicine 06/02/15 Jules Hanyes DO [address] [place] [address] Family Medicine 03/05/13 Edinson Stinson MD [address] [place] [address] Primary Staff Physician Cardiology 05/22/23 Parts Designer Relationship Specialty Start Date End Date Jules Haynes DO [address] [place] [address] PCP - General Family Medicine 06/02/15 Jules Haynes DO [address] [place] [address] Family Medicine 03/05/13 Edinson Stinson MD [address] [place], [place] [id number] Primary Staff Physician Cardiology 05/22/23 Parts Designer Relationship Specialty Start Date End Date Jules Haynes DO [address] [facility] [place] [address] PCP - General Family Medicine 06/02/15 Jules Haynes DO [address] [facility] [place] [address] Family Medicine 03/05/13 Edinson Stinson MD [address] [place] [address] Primary Staff Physician Cardiology 05/22/23 Parts Designer Relationship Specialty Start Date End Date Jules Haynes DO [address] [facility] [place] [address] PCP - General Family Medicine 06/02/15 Jules Haynes DO [address] [facility] [place] [address] Family Medicine 03/05/13 Edinson Stinson MD [address] [place] [address] Primary Staff Physician Cardiology 05/22/23 Parts Designer Relationship Specialty Start Date End Date Jules Haynes DO [address] [facility] [place] [address] PCP - General Family Medicine 06/02/15 Jules Haynes DO [address] [facility] [place] [address] Family Medicine 03/05/13 Edinson Stinson MD [address] [place] [address] Primary Staff Physician Cardiology 05/22/23 Parts Designer Relationship Specialty Start Date End Date Jules Haynes DO [address] [facility] [place] [address] PCP - General Family Medicine 06/02/15 Jules Haynes DO [address] [facility] [place] [address] Family Medicine 03/05/13 Edinson Stinson MD [address] [place] [address] Primary Staff Physician Cardiology 05/22/23 Parts Designer Relationship Specialty Start Date End Date Jules Haynes DO [address] [facility] [place] [address] PCP - General Family Medicine 06/02/15 Jules Haynes DO [address] [facility] [place] [address] Family Medicine 03/05/13 Edinson Stinson MD [address] [place] [address] Primary Staff Physician Cardiology 05/22/23 Parts Designer Relationship Specialty Start Date End Date Jules Haynes DO [address] [facility] [place] [address] PCP - General Family Medicine 06/02/15 Jules Haynes DO [address] [facility] [place] [address] Family Medicine 03/05/13 Parts Designer Relationship Specialty Start Date End Date Jules Haynes DO [address] [facility] [place] [address] PCP - General Family Medicine 06/02/15 Jules Haynes DO [address] [facility] [place] [address] Family Medicine 03/05/13 Edinson Sitnson [facility] [address] [facility] [place] [address] Primary Staff Physician Cardiology 05/22/23 Parts Designer Relationship Specialty Start Date End Date Jules Haynes DO [address] [facility] [place] [address] PCP - General Family Medicine 06/02/15 Jules Haynes DO [address] [facility] [place] [address] Family Medicine 03/05/13 Edinson Stinson MD [address] [facility] [place] [address] Primary Staff Physician Cardiology 05/22/23 Rosalina Morgan, REJECTOR.STREET LIGHT REPAIRER HELPER [address] [facility] [place] [address] [employer] Family Medicine 01/28/24 Virginia Lyon, REJECTOR.STREET LIGHT REPAIRER HELPER [address] [facility] [place] [address] [employer] Family Medicine 01/28/24 Parts Designer Relationship Specialty Start Date End Date Jules Haynes DO [address] [facility] [place] [address] PCP - General Family Medicine 06/02/15 Jules Haynes DO [address] [facility] [place] [address] Family Medicine 03/05/13 Edinson Stinson MD [address] [place], [place] [id number] Primary Staff Physician Cardiology 05/22/23 Rosalina Morgan, REJECTOR.STREET LIGHT REPAIRER HELPER [address] [place] [address] [facility] 01/28/24 Virginia Lyon APRN.STREET LIGHT REPAIRER HELPER [address] [place] [address] [facility] 01/28/24 Parts Designer Relationship Specialty Start Date End Date Jules Haynes DO [address] [place] [address] PCP - General Family Medicine 06/02/15 Jules Haynes DO [address] [place] [address] Family Medicine 03/05/13 Edinson Stinson MD [address] [place] [address] Primary Staff Physician Cardiology 05/22/23 Rosalina Morgan REJECTOR.STREET LIGHT REPAIRER HELPER [address] [place] [address] [facility] 01/28/24 Virginia Lyon APRN.STREET LIGHT REPAIRER HELPER [address] [facility] [place] [address] [employer] [facility] 01/28/24 Parts Designer Relationship Specialty Start Date End Date Jules Haynes DO [address] [facility] [place] [address] PCP - General Family Medicine 06/02/15 Jules Haynes DO [address] [place] [address] Family Medicine 03/05/13 Edinson Stinson MD [address] [place] [address] Primary Staff Physician Cardiology 05/22/23 Rosalina Morgan, REJECTOR.STREET LIGHT REPAIRER HELPER [address] [place] [address] [employer] Family [facility] 01/28/24 Virginia Lyon, REJECTOR.STREET LIGHT REPAIRER HELPER [address] [place] [address] [employer] [facility] 01/28/24 Parts Designer Relationship Specialty Start Date End Date Jules Haynes DO [address] [place] [address] PCP - General Family Medicine 06/02/15 Jules Haynes DO [address] [place] [address] Family Medicine 03/05/13 Edinson Stinson MD [address] [place] [address] Primary Staff Physician Cardiology 05/22/23 Rosalina Morgan, REJECTOR.STREET LIGHT REPAIRER HELPER [address] [facility] [place] [address] [facility] 01/28/24 [facility], REJECTOR.STREET LIGHT REPAIRER HELPER [address] [place] [address] [facility] 01/28/24 Parts Designer Relationship Specialty Start Date End Date Jules Haynes DO [address] [place] [address] PCP - General Family Medicine 06/02/15 Jules Haynes DO [address] [place] [address] Family Medicine 03/05/13 Edinson Stinson MD [address] [place] [address] Primary Staff Physician Cardiology 05/22/23 Rosalina Morgan, REJECTOR.STREET LIGHT REPAIRER HELPER [address] [place] [address] [facility] 01/28/24 [facility], REJECTOR.STREET LIGHT REPAIRER HELPER [address] [facility] [place] [address] [facility] 01/28/24 Parts Designer Relationship Specialty Start Date End Date Jules Haynes DO [address] [place] [address] PCP - General Family Medicine 06/02/15 Jules Haynes DO [address] [place] [address] Family Medicine 03/05/13 Edinson St[address] MD [address] [facility] [place] [address] Primary Staff Physician Cardiology 05/22/23 Rosalina Morgan, REJECTOR.STREET LIGHT REPAIRER HELPER [address] [place] [address] [employer] [facility] 01/28/24 Virginia Lyon, REJECTOR.STREET LIGHT REPAIRER HELPER [address] [place] [address] [employer] [facility] 01/28/24 Parts Designer Relationship Specialty Start Date End Date Jules Haynes DO [address] [place] [address] PCP - General Family Medicine 06/02/15 Jules Haynes DO [address] [place] [address] Family Medicine 03/05/13 Edinson Stinson MD [address] [facility] [place] [address] Primary Staff Physician Cardiology 05/22/23 Virginia Lyon, REJECTOR.STREET LIGHT REPAIRER HELPER [address] [place] [address] [employer] [facility] 01/28/24 Parts Designer Relationship Specialty Start Date End Date Jules Haynes DO [address] [place] [address] PCP - General Family Medicine 06/02/15 Jules Haynes DO [address] [place] [address] Family Medicine 03/05/13 Edinson Stinson MD [address] [place] [address] Primary Staff Physician Cardiology 05/22/23 [facility], REJECTOR.STREET LIGHT REPAIRER HELPER [address] [place] [address] [employer] [facility] 01/28/24 Parts Designer Relationship Specialty Start Date End Date Jules Haynes DO [address] [place] [address] PCP - General Family Medicine 06/02/15 Jules Haynes DO [address] [place] [address] Family Medicine 03/05/13 Edinson Stinson MD [address] [place] [address] Primary Staff Physician Cardiology 05/22/23 [facility], REJECTOR.STREET LIGHT REPAIRER HELPER [address] [place] [address] [employer] [facility] 01/28/24 Parts Designer Relationship Specialty Start Date End Date Jules Haynes DO [address] [place] [address] PCP - General Family Medicine 06/02/15 Jules Haynes DO [address] [place] [address] Family Medicine 03/05/13 Edinson St[address] MD [address] [facility] [place] [address] Primary Staff Physician Cardiology 05/22/23 Virginia Lyon, REJECTOR.STREET LIGHT REPAIRER HELPER [address] [place] [address] [employer] Family Medicine 01/28/24 Parts Designer Relationship Specialty Start Date End Date Jules Haynes DO [address] [place] [address] PCP - General Family Medicine 06/02/15 Jules Haynes DO [address] [place] [address] Family Medicine 03/05/13 Edinson Stinson MD [address] [place] [address] Primary Staff Physician Cardiology 05/22/23 Virginia Lyon, REJECTOR.STREET LIGHT REPAIRER HELPER [address] [place] [address] [employer] Family Medicine 01/28/24 Alicia River, REJECTOR.STREET LIGHT REPAIRER HELPER [address] [place] [address] [facility] Family Medicine 08/05/24 Parts Designer Relationship Specialty Start Date End Date Jules Haynes DO [address] [place] [address] PCP - General Family Medicine 06/02/15 Jules Haynes DO [address] [facility] [place] [address] Family Medicine 03/05/13 Edinson Stinson MD [address] [facility] [place] [place] [address] Primary Staff Physician Cardiology 05/22/23 Virginia Lyon, REJECTOR.STREET LIGHT REPAIRER HELPER [address] [facility] [place] [address] [employer] [facility] 01/28/24 Alicia River, REJECTOR.STREET LIGHT REPAIRER HELPER [address] [place] [address] [facility] 08/05/24 Parts Designer Relationship Specialty Start Date End Date Jules Haynes DO [address] [facility] [place] [address] PCP - General Family Medicine 06/02/15 Jules Haynes DO [address] [facility] [place] [address] Family Medicine 03/05/13 Edinson Stinson MD [address] [place], [place] [address] Primary Staff Physician Cardiology 05/22/23 Virginia Lyon, REJECTOR.STREET LIGHT REPAIRER HELPER [address] [facility] [place] [address] [facility] 01/28/24 Alicia River REJECTOR.STREET LIGHT REPAIRER HELPER [address] [place], [place] [address] [facility] 08/[facility]24 Team Status: Active Member Role/Relationship Status Dates Dr. Jules Haynes DO Primary Care Provider Active Team Status: Inactive Member Role/Relationship Status Dates Dr. Jules Haynes DO Primary Care Provider Active Start: August 18, 2024 End: August 18, 2024 Dr. Julian Sifuentes DO Emergency Provider Active Start: August 18, 2024 End: August 18, 2024 Parts Designer Relationship Specialty Start Date End Date Jules Haynes DO [address] [facility], [place] [address] PCP - General Family Medicine 06/02/15 Jules Haynes DO [address] [place] [address] Family Medicine 03/05/13 Edinson Stinson MD [address] [place] [address] Primary Staff Physician Cardiology 05/22/23 Virginia Lyon APRN.STREET LIGHT REPAIRER HELPER [address] [place] [address], [place] [address] [facility] 01/28/24 Alicia River APRN.STREET LIGHT REPAIRER HELPER [address] [facility] [address] [facility] 08/05/24 Parts Designer Relationship Specialty Start Date End Date Jules Haynes DO [address] [facility] [place] [address] PCP - General Family Medicine 06/02/15 Jules Haynes DO [address] [facility] [place] [address] Family Medicine 03/05/13 Edinson Stinson MD [address] [place], [place] [address] Primary Staff Physician Cardiology 05/22/23 Virginia Lyon, REJECTOR.STREET LIGHT REPAIRER HELPER [address] [place] [address] [employer] Family [facility] 01/28/24 Alicia River, REJECTOR.STREET LIGHT REPAIRER HELPER [address] [place] [address] [facility] 08/05/24 Parts Designer Relationship Specialty Start Date End Date Jules Haynes DO [address] [place] [address] PCP - General Family Medicine 06/02/15 Jules Haynes DO [address] [place] [address] Family Medicine 03/05/13 Edinson Stinson MD [address] [place] [address] Primary Staff Physician Cardiology 05/22/23 Virginia Lyon, REJECTOR.STREET LIGHT REPAIRER HELPER [address] [place] [address] [facility] Family [facility] 01/28/24 Alicia River, REJECTOR.STREET LIGHT REPAIRER HELPER [address] [place] [address] [facility] 08/05/24 Parts Designer Relationship Specialty Start Date End Date Jules Haynes DO [address] [facility] [place] [address] PCP - General Family Medicine 06/02/15 Jules Haynes DO [address] [facility] [place] [address] Family Medicine 03/05/13 Edinson Stinson MD [address] [place], [place] [address] Primary Staff Physician Cardiology 05/22/23 Virginia Lyon, REJECTOR.STREET LIGHT REPAIRER HELPER [address] [place] [address] [employer] [facility] Medicine 01/28/24 Alicia River, REJECTOR.STREET LIGHT REPAIRER HELPER [address] [place] [address] [employer] Family [facility] 08/05/24 Parts Designer Relationship Specialty Start Date End Date Jules Haynes DO [address] [place] [address] PCP - General Family Medicine 06/02/15 Jules Haynes DO [address] [facility] [place] [address] Family Medicine 03/05/13 Edinson Stinson MD [address] [place], [place] [address] Primary Staff Physician Cardiology 05/22/23 Virginia Lyon, REJECTOR.STREET LIGHT REPAIRER HELPER [address] [place] [address] [facility] 01/28/24 Alicia River, REJECTOR.STREET LIGHT REPAIRER HELPER [address] [place], [place] [address] [facility] 08/05/24 Parts Designer Relationship Specialty Start Date End Date Jules Haynes DO [address] [place], [place] [address] PCP - General Family Medicine 06/02/15 Jules Haynes DO [address] [place], [place] [address] Family Medicine 03/05/13 Edinson Stinson MD [address] [place], [place] [address] Primary Staff Physician Cardiology 05/22/23 Virginia Lyon, REJECTOR.STREET LIGHT REPAIRER HELPER [address] [place], [place] [address] [facility] 01/28/24 Alicia River, REJECTOR.STREET LIGHT REPAIRER HELPER [facility] [place], [place] [address] [facility] 08/05/24 Team Status: Inactive Member Role/Relationship Status Dates Dr. Jules Haynes DO Primary Care Provider Active Start: August 18, 2024 End: August 18, 2024 Dr. Julian Sifuentes DO Attending Provider Active Start: August 18, 2024 End: August 18, 2024 Dr. Julian Sifuentes DO Emergency Provider Active Start: August 18, 2024 End: August 18, 2024 Team Status: Inactive Member Role/Relationship Status Dates Dr. Jules Haynes DO Primary Care Provider Active Start: October 05, 2024 End: October 05, 2024 Dr. Brett Marcus MD Emergency Provider Active Start: October 05, 2024 End: October 05, 2024 Goals (unrecognized section and content) Goals may [...] section and content) DATE CREATED AUTHOR 11/23/2022 [facility] DATE CREATED AUTHOR AUTHOR'S ORGANIZ ATION 08/23/2024 [facility] DATE CREATED AUTHOR AUTHOR'S ORGANIZ ATION 09/19/2024 [facility] DATE CREATED AUTHOR AUTHOR'S ORGANIZ ATION 10/04/2024 [facility] nter FOR RECORDS PERTAINING TO PATIENTS WHO [...] BE BASED ON THE PRIMARY CLINICAL RECORDS. [employer] [facility]. provides no warranty or guarantee of the accuracy or completeness of information in this document.
[2024-10-05 14:03] LABS: AST(SGOT) 21 U/L (<=37); Alanine Aminotransfer ALT/SGPT 9 U/L (<=46); Albumin, Serum 3.8 g/dL (3.4-4.8); Alkaline Phosphatase 50 U/L (40-129); Anion Gap 10 (5-15); BUN 16 mg/dL (4-19); BUN/Creat Ratio 10.2 RATIO (10-20); Calcium,Total 9.0 mg/dL (7.6-11.0); Carbon Dioxide 23.5 mmol/L (21.0-32.0); Chloride 103 mmol/L (98-108); Estimated Creatinine Clearance 48.98 ml/min (50-250); Globulin 2.1 g/dL (2.2-4.2); Glucose 115 mg/dL (70-99); Potassium 4.3 mmol/L (3.3-5.1)
--- NOTE | 2024-10-05 20:12 | PCA ---
2M T92 BED 2 N2N [id number]
--- NOTE | 2024-10-05 20:57 | ED.RN ---
Attempted to call report to [facility]. On hold for 7 minutes with no answer.
--- NOTE | 2024-10-05 21:14 | ED.RN ---
Report given to Osvaldo merrill [facility].
== END 2024-10-05 22:01 | disposition other institution (70) ==
PROVIDERS: Emergency Provider Emergency Medicine; PCP Student in an Organized Health Care Education/Training Program; Visit Provider Emergency Medicine
DX: N17.9 Acute kidney failure, unspecified (principal); R10.9 Unspecified abdominal pain; Z87.891 Personal history of nicotine dependence; R31.9 Hematuria, unspecified; Z96.0 Presence of urogenital implants; G47.33 Obstructive sleep apnea (adult) (pediatric); Z99.89 Dependence on other enabling machines and devices; N40.0 Benign prostatic hyperplasia without lower urinary tract symptoms; Z79.899 Other long term (current) drug therapy
CPT/HCPCS: 80053; 83605; 85025; 87040; 87086; 96361; 96374; 96375; 96376; 99284; A4216; J2405